=== PATIENT | female | born 2000 | race Caucasian/White ===

== ENCOUNTER 2021-11-04 19:42 | Emergency (ER) | payer OTHER, SELFPAY ==
[2021-11-04 19:44] VITALS: BP 165/91; PULSE 100; RESP 16; TEMP 36.4; O2SAT 100; BMI 36.5
--- NOTE | 2021-11-04 20:01 | EX.ED.VIS.PS ---
HPI HPI - Psych History of Present Illness Chief Complaint: Mental Health Narrative Narrative: [id number] male who identifies as a female presenting with depression episode. Apparently his significant other threw him out of the house is ago because he was not helping as much with her child is much as usual. The patient reports that he has a history of some left-sided pelvic cyst which needs nonemergent surgery. The patient was diagnosed with a [facility]. The patient states this is why it is difficult to be helpful. The patient complains of increased depression and negative thoughts but denies suicidal or homicidal ideation. The patient has no plan to for harm. Patient states that she feels like she is to be checked out. Patient does have a history of PTSD, anxiety, depression. The patient has follow-up scheduled for next week for specialist and PTSD therapy. PFSH PFS Medical History Anxiety Depression PTSD (post-traumatic stress disorder) Allergy/AdvReac Type Severity Reaction Status Date / Time quetiapine [From Seroquel] AdvReac Other Verified 11/04/21 19:47 sertraline [From Zoloft] AdvReac Other Verified 11/04/21 19:47 Social History Smoking Status: Current every day smoker tobacco type: cigarettes ROS ROS ED Constitutional Constitutional ED: Denies chills or fever(s) Eyes Eyes: Denies blurry vision or diplopia ENT ENT ED: Denies rhinorrhea or sore throat Cardiovascular Cardiovascular: Denies chest pain or palpitations Respiratory/Chest Respiratory/Chest: Denies cough or dyspnea Gastrointestinal Gastrointestinal: Denies abdominal pain, nausea or vomiting Genitourinary Genitourinary ED: Denies dysuria or hematuria Musculoskeletal Musculoskeletal: Denies arthralgias or myalgias Integumentary Denies abscess or rash Neurologic Neurologic: Denies headache(s) or weakness Psychiatric Psychiatric: Reports anxiety and depression; Denies suicidal ideation or suicidal thoughts Endocrine Endocrinology: Denies polydipsia or polyuria EXAM Physical Exam Const Vital Signs: 11/04/21 19:44 Temperature 97.6 F L Temperature Source Temporal Pulse Rate 100 Respiratory Rate 16 Blood Pressure 165/91 H Blood Pressure Mean 115 Pulse Ox 100 Oxygen Delivery Method Room Air Positive well nourished General Appearance ED: NAD; Negative for pallor HEENT normocephalic and atraumatic Eyes PERRL and EOMs intact bilaterally General Eye ED: Negative for pale conjunctiva or scleral icterus Resp normal respiratory effort and clear to auscultation bilaterally Cardio Rate: regular rate Rhythm: regular rhythm Neuro oriented x3 and CN's II-XII intact bilaterally Sensorium / Orientation: alert Psych Appearance: grossly normal Attitude: calm Activity / Motor Behavior: appropriate eye contact Speech: normal speech Mood & Affect: sad and tearful Thought Process: normal thought process Memory / Cognition: memory grossly intact Skin General Skin Exam: Negative for jaundice or pallor Lesions: no lesions Rashes: no rashes MDM MDM MDM Narrative Medical decision making narrative: 21-year-old female with history of depression, anxiety, PTSD presenting with depression. Apparently the patient is upset because her significant other kicked her out of the house and she is staying with a friend. Patient states she has negative thoughts but is not suicidal or homicidal. She is not manic. She is able to talk calmly and I do not believe she needs inpatient care. I spoke with social work who evaluated her and social work also believes that the patient is safe for safety planning. This was discussed with the patient and she will be discharged home in stable condition. Return precautions discussed. Impression: 1. Depression Discharge Plan Triage Chief Complaint: Mental Health ED Provider: Vic Bartlett Dx/Rx/DC Orders Instructions: ED Depression Primary Care Provider: Care Physician,No Primary Referrals: NOT,DEFINED [NON-STAFF] - Disposition Disposition: Home, Self Care Discharge Date/Time: 11/04/21 21:02
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
== END 2021-11-04 21:02 | disposition home or self-care (01) ==
PROVIDERS: Emergency Provider Student in an Organized Health Care Education/Training Program; Visit Provider Student in an Organized Health Care Education/Training Program
DX: F32.A Depression, unspecified (principal); F41.9 Anxiety disorder, unspecified; F17.210 Nicotine dependence, cigarettes, uncomplicated
CPT/HCPCS: 99282

== ENCOUNTER 2022-01-12 08:43 | Day surgery (SDC) | payer OTHER, SELFPAY ==
[2022-01-05 14:47] LABS: Hematocrit 46.6 % (37-47); Hemoglobin 14.5 g/dL (12.0-15.0); Mean Corp Hgb Conc 31.1 g/dL (32-36); Mean Corpuscular Hgb 27.6 pg (27.0-32.0); Mean Corpuscular Volume 88.8 fL (81-99); Mean Platelet Vol. 9.5 fl (6.2-12.0); Platelet Count 292 K/mm3 (150-450); RBC Distribution Width CV 15.2 % (11.6-14.6); RBC Distribution Width SD 50.3 fl (35.1-43.9); Red Blood Count 5.25 M/mm3 (4.2-5.4); White Blood Count 9.3 K/mm3 (4.4-11.0)
[2022-01-05 15:06] LABS: Magnesium 1.8 mg/dL (1.6-2.6)
[2022-01-12] VITALS (8 sets, daily range): BP systolic 116–135; BP diastolic 53–91; PULSE 71–88; RESP 16–18; TEMP 36.4–36.9; O2SAT 98–100; BMI 38.1
[2022-01-12] MEDS: Lactated Ringers 1,000 ML 40 ML IV (09:37)
[2022-01-12 09:38] LABS: Internal QC Validated? YES +Cl - CLEAR BKGD; Pregnancy, Urine Negative Negative
[2022-01-12] MEDS: Acetaminophen 500 MG Tablet 1000 MG PO (09:38)
[2022-01-12] MEDS: Gabapentin 600 MG Tablet PO (09:38)
[2022-01-12] MEDS: Magnesium Sulfate 2 GM IV IV (09:38)
--- NOTE | 2022-01-12 10:09 | HP.PCM.OB_ITS ---
History and Physical Date of Admission: 01/12/22 Surgical History and Physical Date: 01/12/2022 Name: GINI ALEJANDRO Age: 21 Date of : 2000 Gini Alejandro, a 21 year old female 0 0 0 0 0, presents for Robotic Assisted total laparoscopic hysterectomy bilateral salpingectomy, cystoscopy on 01/12 at 7:30. -- Patient is here for Robotic assisted total laparoscopic hysterectomy bilateral salpingectomy, cystoscopy. No concerns or problems today. Consents are signed and no questions. MEDICATIONS HISTORY: Current medications prescribed by our practice are: 1. Valtrex 1 gram tablet, 1 PO QD 2. Valtrex 1 gram tablet, One pill by mouth twice a day Patient is also takin. Lexapro 20 mg tablet, One pill by mouth once a day 2. testosterone cypionate 200 mg/mL intramuscular oil, 0.4 ml one injection weekly 3. trazodone 50 mg tablet, One pill by mouth once a day at hs 4. prazosin 2 mg capsule, One pill by mouth once a day at hs ALLERGIES: No Known Allergies, Seroquel, Suicidal thoughts, Zoloft and Suicidal thoughts Illnesses - Transgender Dysphoria, PTSD, Bipolar I, Depression/Anxiety, ADHD Accidents - None Hospitalizations - None Review of Systems: GENERAL - Denies fever, or chills SKIN - Denies skin changes EYES - Denies visual changes EARS - Denies difficulty hearing NOSE - Denies nasal congestion or bleeding MOUTH - Denies sore throat or difficulty swallowing NECK - Denies pain or swelling RESPIRATORY - Denies shortness of breath or wheezing CARDIOVASCULAR - Denies palpitations or chest pain GASTROINTESTINAL - Denies nausea, vomiting, diarrhea, constipation GENITOURINARY - Denies dysuria, frequency of urination, incontinence of urine MUSCULOSKELETAL - Denies joint or muscle pain NEUROLOGICAL - Denies localized numbness or weakness PSYCHIATRIC - Denies depression or anxiety ENDOCRINE - Denies heat or cold intolerance, weight loss or gain HEMATO-IMMUNOLOGIC - Denies excessive bleeding with cuts SOCIAL HISTORY: Alcohol Use - drinks occasionally Smoking - used to smoke but quit Diet - no special diet Lifestyle - moderate stress lifestyle, single and engaged Exercise - active work Seat Belt Use - never Employer - [employer] 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 Illicit Drug Use - None Sexual Activity - ACTIVE ONE PARTNER Control - NONE FAMILY HISTORY: MENSTRUAL HISTORY: LMP Known?- DefiniteAmount/Duration - excessive duration, Regularity - Irregular, LMP - 10/27/21, Age Onset Menarche - 13 PAST PREGNANCIES: Total Pregnancies - 0; Full Term Pregnancies - 0; Premature - 0; Abortions, Induced - 0; Abortions, Spontaneous - 0; Ectopics - 0; Multiple Births - 0; Living Children - 0 PHYSICAL EXAM BP- 124/80 Sitting, Left arm, large cuff Weight- 253.89327 lbs Height- 68 inch BMI:[id number] CONSTITUTIONAL - NAD, well nourished, and well developed SKIN - No rash, lesions, or ulcers HEENT - Normocephalic, PERRLA, EOMI NECK - No nodes, no nuchal rigidity and thyroid normal size and texture LYMPH NODES - Palpation of lymph nodes in neck and groins within normal limits ABDOMEN - Without hepatosplenomegaly, distention, masses, rebound, or guarding; normal bowel sounds; no hernias EXTREMITIES - No edema or calf tenderness NEUROLOGICAL - Cranial nerves II-XII grossly intact PSYCHIATRIC - A and O to time, place, person, mood and affect External Genital Vagina - non-tender without lesions Urethra/Urethral Meatus - non-tender Bladder - non-tender Vagina - vaginal segura are pink and moist without loss of rugae and no evidence of atrophy Cervix - without cervical motion tenderness and has normal size and features without evident lesions Uterus - 5-6 cm in size, mobile and nontender Adnexa - clear without masses or tenderness ASSESSMENT/PLAN: 1. Abnormal Uterine And Vaginal Bleeding, Unspecified Pt AUB and pelvic pain unresolved with IBU and OCP. No menses with testosterone replacement. Pelvic pain debilitating Exam benign. 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 Encounter For Other Preprocedural Examination Patient scheduled for robotic assisted total laparoscopic hysterectomy bilateral salpingectomy, cystoscopy. For pelvic pain Educated patient on risk benefits alternatives. Patient states understanding and wished to proceed. All questions were answered and consent was signed Discussed postoperative recovery. Lifting restrictions, back to work
[2022-01-12] MEDS: Cefazolin 2 GM in 0.9% Normal Saline 100 ML IV (10:52)
[2022-01-12 10:55] LABS: Bedside Glucose 107 mg/dL (74-106)
--- NOTE | 2022-01-12 11:00 | HYST_PTH ---
PATIENT: KENDALL ALEJANDRO LOC: [facility] U#:[id number] AGE/SX: 21/ ROOM: RE01/12/[address]: Dr. Alexsander Tirado MD : 2000 BED: DIS: 01/12/2022 SPEC #: [id number] RECD: 01/12/22 17:55 STATUS: LEONEL REYNOLDSElliot #: [id number] EMILY: 01/12/22 11:[address]: Alexsander Tirado DEPT: SURGICAL PATHOLOGY RECD BY: Sara Kinney Tissues: Uterus, NOS Procedures: Surgery Specimen Level V HEADER OPERATION: ERAS, lap robotic hysterectomy, bilateral salpingectomy, cysto PRE-OP DIAGNOSIS: Abnormal uterine and vaginal bleeding, pelvic pain TISSUE SUBMITTED: Cervix, uterus and bilateral fallopian tubes MICROSCOPIC DIAGNOSIS Uterus, hysterectomy: Cervix ? squamous metaplasia and mild chronic inflammation. Endometrium ? transition endometrium with focal cystic change. Myometrium - No pathologic change. Right and left fallopian tubes - No pathologic change. AM:reinaldo 01/16/2022 MICROSCOPIC DESCRIPTION Slides are reviewed. GROSS DESCRIPTION Received in fixative is one container labeled with the patient's name and designated cervix, uterus and bilateral fallopian tubes. The specimen consists of a hysterectomy specimen consisting of uterus with cervix and detached bilateral fallopian tubes. The uterus with cervix weighs 54 gm and measures 7.5 x 6 x 3 cm. The serosal surface is arreguin, glistening and focal area of subserosal hemorrhage is noted. The ectocervical mucosa is unremarkable. The external os is slit-like in contour. The endocervical canal measures 2.5 cm in length and the endocervical mucosa is arreguin, glistening and unremarkable. The triangular endometrial cavity measures 3.5 cm in length and up to 2 cm in width. The endometrium is arreguin, glistening without any mass lesion and measures 0.1 cm in thickness. Sections of the uterine wall do not reveal any mass lesion and measures up to 2 cm in thickness. Bilateral fallopian tubes are not identified as right or left and measures 6 cm in length and 0.5 cm in diameter and 6.5 cm in length and 0.5 cm in diameter. The fimbrial end is identified. Sections reveal unremarkable cut surfaces. Surgical Garment Fitter sections are submitted in eight cassettes as follows: 1 - anterior cervix, 2 - posterior cervix, 3 & 4 - anterior uterine wall, 5 & 6 - posterior uterine wall, 7 ? one fallopian tube, 8 ? second fallopian tube. / SJ:reinaldo 01/13/2022 TC:3 CPT: 05578
--- NOTE | 2022-01-12 12:57 | DCINST_ITS ---
Discharge Instructions Diet Discharge Diet: No restrictions Activity Discharge Activity: Return to Normal Activity, May Drive, May Shower and - (No tub baths for 2 weeks) May resume sexual activity in: 4-6 weeks Lifting Restrictions: No lifting over 25 pounds for 2 to 3 weeks Dressing / Incision Call your doctor if your incision/area has: Continuous Slow Oozing and Foul Smelling Discharge Call your doctor if you observe: Fever of 101 or Higher, Shortness of breath and Chest pain Follow Up Care Please Follow Up With: Alexsander Tirado MD When: 2 weeks postoperatively Test Results: Test results from this visit will be discussed in further detail at your follow- up appointment, if applicable. Discharge Plan Admission Primary Reason for Your Visit: Hysterectomy Attending Provider: Alexsander Tirado Primary Care Provider: MARLY JAIN Discharge Orders/Prescriptions Prescriptions: New oxycodone 5 mg Tablet 5 mg PO Q6H PRN PRN (Reason: Pain Score 7-10/10) 5 Days Qty: 20 0RF Continued acetaminophen [Tylenol] 325 mg Tablet 1,000 mg PO Q6H trazodone 50 mg Tablet 50 mg PO QHS ibuprofen 800 mg Tablet 800 mg PO Q8H valacyclovir [Valtrex] 1 gram Tablet 1,000 mg PO QHS ondansetron HCl 4 mg Tablet 4 mg PO Q6H PRN (Reason: Nausea) albuterol sulfate [Ventolin HFA] 90 mcg/actuation Hfa Aerosol Inhaler 1 inh INHALATION Q6H PRN (Reason: SOB) prazosin 2 mg Capsule 2 mg PO QPM escitalopram oxalate [Lexapro] 20 mg Tablet 20 mg PO QHS testosterone cypionate 200 mg/mL Kit 0.5 mg IM QWEEK Referrals / Follow Up: MARLY JAIN [Other] Disposition Disposition (needs filled in before D/C Order can be placed): Home, Self Care
--- NOTE | 2022-01-12 12:58 | PCM.OPRPT ---
Report of Operation Date of Procedure: 01/12/22 Pre-Operative Diagnosis: Abnormal uterine bleeding, pelvic pain Post-Operative Diagnosis: Abnormal uterine bleeding, pelvic pain Surgery/Procedure Performed:: Robotic assisted total laparoscopic hysterectomy bilateral salpingectomy, cystoscopy Description of Surgical Findings:: Surgeon: Alexsander Tirado MD Anesthesia: General EBL: 10 cc Urine output: 200 cc IV fluids: 1500 cc Complications: None Specimen: Bilateral fallopian tubes, cervix, uterus Findings: Normal uterus, tubes, and ovaries. Post procedure cystoscopy was performed and no pathology was noted Consent: Patient with abnormal uterine bleeding and pelvic pain elects for robotic assisted total laparoscopic hysterectomy bilateral salpingectomy, cystoscopy. Patient understands the risk of the procedure include but are not limited to visceral or vascular injury, prolonged hospitalization, blood loss and need for transfusion, reoperation. Patient state understanding and wished to proceed. All questions were answered and consent was signed Procedure: Patient is brought back to the OR where general anesthesia was found to be adequate. 2 g of Ancef were given for infection prophylaxis. Patient was prepared and draped in a dorsal lithotomy position with yellowfin stirrups. A weighted speculum was placed in the posterior aspect of the vagina and cervical dilators were used to dilate the cervix. Uterine manipulator was placed. Varies needle was inserted at the umbilicus water safety test was passed abdomen was insufflated. Supraumbilical midline 8 mm robotic trocar was inserted under direct visualization. Laparoscope was inserted and above findings were noted. Bilateral lower quadrant 8 mm trochars were inserted under direct visualization. 12 mm left upper quadrant trocar was inserted under direct visualization. Robot was docked. Using a vessel sealer and monopolar scissors left fallopian tubes identified to the fimbria and the mesosalpinx was cut and cauterized, left lobe tube removed from abdominal cavity and sent to pathology. Left round ligament was cut and cauterized. Anterior posterior portions of broad ligament were dissected. Bladder flap developed. Left uterine vessels skeletonized cut and cauterized lateralized beyond the level the colpotomy cup. Right fallopian tube was identified up to the fimbria and the mesosalpinx was cut and cauterized, right fallopian tube was removed from the abdominal cavity and sent to pathology. Right round ligament was cut and cauterized. Anterior and posterior portions of the broad ligament were dissected. Bladder flap was developed beyond the level of colpotomy cup. Right uterine vessels skeletonized cut and cauterized lateralized beyond the level to colpotomy cup. Circumferential colpotomy was made. Uterus was removed from the abdominal cavity and sent to pathology. Good hemostasis was noted. Colpotomy was closed in a continuous running fashion with V-Loc suture. Good hemostasis was noted. Cystoscopy was performed and above findings were noted. 12 mm trocar site was closed with a Tom Ramsey and Vicryl suture. Abdomen was desufflated and trochars were removed under direct visualization. Good hemostasis was noted. Skin was closed in subcuticular fashion. Good hemostasis was noted. All counts were correct x2. Patient tolerated procedure well and was brought to recovery in stable condition.
[2022-01-12] MEDS: oxyCODONE 5 MG Tablet PO (15:14)
== END 2022-01-12 15:35 | disposition home or self-care (01) ==
LOC: SDC 08:47 → AC 08:53
PROVIDERS: Anesthesiology; Referring Provider Obstetrics & Gynecology; Visit Provider Obstetrics & Gynecology
PROC: 0UT90ZZ Resection of Uterus, Open Approach (ICD-10-PCS; CPT 58571; principal; 2022-01-12 10:40)
DX: N85.8 Other specified noninflammatory disorders of uterus (principal); J45.909 Unspecified asthma, uncomplicated; F41.9 Anxiety disorder, unspecified; F32.A Depression, unspecified; A60.00 Herpesviral infection of urogenital system, unspecified; F43.10 Post-traumatic stress disorder, unspecified; Z87.891 Personal history of nicotine dependence; Z79.899 Other long term (current) drug therapy; Z86.16 Personal history of COVID-19
CPT/HCPCS: 58571; S2900; 00840; 36415; 81025; 82962; 83735; 85027; 86850; 86900; 86901; 88307; J7120; J2405

== ENCOUNTER 2022-10-07 17:01 | Emergency (ER) | payer OTHER, SELFPAY ==
[2022-10-07 17:02] VITALS: BP 164/89; PULSE 100; RESP 16; TEMP 36.4; O2SAT 99; BMI 40.6
--- NOTE | 2022-10-07 17:15 | CT_ITS ---
INDICATION: Right lower quadrant pain. EXAMINATION: CT ABDOMEN AND PELVIS WITHOUT CONTRAST TECHNIQUE: Helically acquired images were obtained of the abdomen and pelvis without oral or IV contrast. A radiation dose optimization technique was used for this scan. IV Contrast dosage and agent: None. Oral contrast: None. COMPARISON: None. FINDINGS: LOWER CHEST: Lung bases are clear. No cardiomegaly or pericardial effusion. No coronary artery calcification. LIVER: Homogeneous. No focal mass. GALLBLADDER AND BILIARY TREE: No calcified gallstones. No gallbladder distension or wall edema. No intra- or extrahepatic biliary ductal dilation. PANCREAS: No focal cystic or solid mass. SPLEEN: Normal size without focal cystic or solid mass. ADRENAL GLANDS: No nodules. KIDNEYS AND URETERS: Normal renal size and position. No hydronephrosis. PERITONEUM: No ascites or free air. No other fluid collection. BOWEL: No evidence of acute appendicitis, normal appendix. No stomach or bowel distension. No focal inflammatory change. LYMPH NODES: No enlarged mesenteric or retroperitoneal lymph nodes. VESSELS: Aorta is non-dilated. URINARY BLADDER: Decompressed. No gas or stone. REPRODUCTIVE ORGANS: No pelvic masses. Hysterectomy. ABDOMINAL WALL: Fat-containing umbilical hernia. BONES: No lytic or blastic abnormality. Unremarkable for age. CT/Abdomen/Pelvis without Cont IMPRESSION: No appendicitis or acute intra-abdominal findings. Electronically Signed: Ezra Marr MD at 18:37 EDT ,
--- NOTE | 2022-10-07 17:27 | EDS_ITS ---
HPI History of Present Illness Chief Complaint: Complaint Informant: patient Narrative Narrative: Patient presents with pelvic pain over the past several days, worse in the right lower quadrant. Today patient noted blood when wiping and is concerned that it is vaginal bleeding. Patient is trans female to male. He had a partial hysterectomy last year. He states following his hysterectomy he did have vaginal bleeding for approximately 6 months. Patient has had history of ovarian cyst prior to his surgery, however had an ultrasound 3 weeks ago that showed no evidence of ovarian cyst. Patient denies history of kidney stone. [facility] Medical History Anxiety Asthma Back pain Bipolar 1 disorder COVID Depression Eating disorder Herpes genitalia History of ADHD History of nenita Hypoglycemia Leg cramps Loss of hearing Migraine headache Nightmare disorder Pelvic pain PTSD (post-traumatic stress disorder) Restless legs Shortness of breath on exertion Smoker Suicidal ideation Syncope Transgender Under care of mental health counselor Wears glasses Home Medications acetaminophen 325 mg tablet (Tylenol) 1,000 mg PO Q6H 11/18/21 [History Last Taken 01/11/22] albuterol sulfate 90 mcg/actuation aerosol inhaler (Ventolin HFA) 1 inh inhalation Q6H PRN SOB 11/18/21 [History Last Taken 01/11/22] escitalopram oxalate 20 mg tablet (Lexapro) 20 mg PO QHS 11/18/21 [History Last Taken 01/11/22] ibuprofen 800 mg tablet 800 mg PO Q8H 11/18/21 [History Last Taken 01/11/22] ondansetron HCl 4 mg tablet 4 mg PO Q6H PRN Nausea 11/18/21 [History Last Taken 01/11/22] prazosin 2 mg capsule 2 mg PO QPM 11/18/21 [History Last Taken 01/11/22] testosterone cypionate 200 mg/mL intramuscular kit 0.5 mg IM QWEEK 11/18/21 [History Last Taken 01/11/22] valacyclovir 1 gram tablet (Valtrex) 1,000 mg PO QHS 11/18/21 [History Last Taken 01/11/22] oxycodone 5 mg tablet 5 mg PO Q6H PRN PRN Pain Score 7-10/10 5 days #20 tabs 01/12/22 [Rx Last Taken Unknown] Allergy/AdvReac Type Severity Reaction Status Date / Time adhesive tape AdvReac RED SKIN Verified 10/07/22 17:04 quetiapine [From Seroquel] AdvReac Other Verified 10/07/22 17:04 sertraline [From Zoloft] AdvReac Other Verified 10/07/22 17:04 Surgical History No history of previous surgery Social History Smoking Status: Light Smoker (<10/day) ROS ROS ED Constitutional Constitutional ED: Reports fever(s) and other Details: Temp 99 this morning. ; Denies chills Eyes Eyes: Denies change in vision ENT ENT ED: Denies rhinorrhea or sore throat Cardiovascular Cardiovascular: Denies chest pain or palpitations Respiratory/Chest Respiratory/Chest: Denies cough or dyspnea Gastrointestinal Gastrointestinal: Reports abdominal pain and nausea; Denies diarrhea or vomiting Genitourinary Genitourinary ED: Denies dysuria Musculoskeletal Musculoskeletal: Denies back pain or extremity pain Integumentary Denies Abrasions or rash Neurologic Neurologic: Denies headache(s) or weakness Allergic/Immunologic Allergic/Immunologic ED: Denies lip swelling or urticaria EXAM Physical Exam Const Vital Signs: 10/07/22 17:02 Temperature 97.6 F L Temperature Source Temporal Pulse Rate 100 Respiratory Rate 16 Blood Pressure 164/89 H Blood Pressure Mean 114 Pulse Ox 99 Oxygen Delivery Method Room Air Positive well nourished and well developed General Appearance ED: well developed HEENT Reports normocephalic and head/scalp atraumatic Eyes PERRL and EOMs intact bilaterally Neck supple Chest Wall inspection of chest normal and palpation of chest normal Resp normal respiratory effort and clear to auscultation bilaterally Cardio regular rate and regular rhythm GI GI Narrative: Abdomen soft with mild lower abdominal tenderness. No guarding or rebound. Palpation: soft Back/Spine no CVA tenderness Extremity normal to inspection Neuro oriented x3 and no sensory deficits noted Sensorium / Orientation: alert Motor Exam: strength 5/5 throughout Psych mental status grossly normal Skin no rashes or lesions noted MDM MDM MDM Narrative Medical decision making narrative: Patient was given morphine, Zofran, Toradol, IV fluids. Labwork obtained to evaluate for leukocytosis, anemia, and electrolyte derangement. Urinalysis obtained to evaluate for infection/hematuria. CT scan of the flank obtained to evaluate for possible kidney stone or appendicitis. Lab Data Attestation: I reviewed the patient's lab results. Labs: Laboratory Results - last 24 hr 10/07/22 10/07/22 10/07/22 17:30 18:00 18:00 WBC 8.6 RBC 5.76 H Hgb 15.8 H Hct 49.0 H MCV 85.1 MCH 27.4 MCHC 32.2 RDW Std Deviation 43.6 RDW Coeff of Nan 14.2 Plt Count 193 MPV 9.9 Immature Gran % (Auto) 0.200 Neut % (Auto) 59.2 Lymph % (Auto) 27.7 [place] % (Auto) 7.6 Eos % (Auto) 4.2 Baso % (Auto) 1.1 H Absolute Neuts (auto) 5.1 Absolute Lymphs (auto) 2.37 Nucleated RBC % 0 Platelet Estimate ADEQUATE Plt Morphology Comment LARGE RBC Morphology NORM C+C Sodium 138 Potassium 3.6 Chloride 103 Carbon Dioxide 28.0 Anion Gap 7 BUN 10 Creatinine 0.99 Estim Creat Clear Calc 89.15 Est GFR (MDRD) Af Amer 89 Est GFR (MDRD) Non-Af 73 BUN/Creatinine Ratio 10.1 Glucose 100 Calcium 9.5 Urine Color Yellow Urine Clarity Clear Urine pH 6.5 Ur Specific [place] 1.015 Urine Protein Negative Urine Glucose (UA) Normal Urine Ketones Negative Urine Occult Blood Negative Urine Nitrite Negative Urine Bilirubin Negative Urine Urobilinogen Normal Ur Leukocyte Esterase 25 H Urine RBC 0 SEEN Urine WBC 0 SEEN Ur Squamous Epith Cells 0 SEEN Urine Bacteria 0 SEEN Urine Mucus 0 SEEN Radiography Diagnostic Testing: Clinical Impression(s) from Imaging Studies Abdomen/Pelvis CT 10/07/22 17:15 IMPRESSION: No appendicitis or acute intra-abdominal findings. Electronically Signed: Ezra Marr MD at 18:37 EDT , Treatment and Re-Evaluation :: CBC reveals normal white count with hemoglobin concentrated at 15.8. Chemistry studies unremarkable. Urinalysis normal. CT flank reveals no evidence of appendicitis or any other acute intra-abdominal pathology. External examination is performed. There is a superficial abrasion noted just anterior to the vaginal orifice. This appears that has been recently bleeding. I see no sign of infection or abscess. Patient is scheduled to see a pelvic specialist in [place] next month as the lower pelvic pain has been ongoing for quite some time. At this time I see no indication for antibiotics. Supportive care will be continued. Discharge Plan Triage Chief Complaint: Complaint ED Provider: Steffanie Quintanilla Dx/Rx/DC Orders Clinical Impression: Pelvic pain Instructions: ED Pelvic Pain, Unknown Cause Prescriptions: No Action acetaminophen [Tylenol] 325 mg Tablet 1,000 mg PO Q6H ibuprofen 800 mg Tablet 800 mg PO Q8H valacyclovir [Valtrex] 1 gram Tablet 1,000 mg PO QHS ondansetron HCl 4 mg Tablet 4 mg PO Q6H PRN (Reason: Nausea) albuterol sulfate [Ventolin HFA] 90 mcg/actuation Hfa Aerosol Inhaler 1 inh INHALATION Q6H PRN (Reason: SOB) prazosin 2 mg Capsule 2 mg PO QPM escitalopram oxalate [Lexapro] 20 mg Tablet 20 mg PO QHS testosterone cypionate 200 mg/mL Kit 0.5 mg IM QWEEK oxycodone 5 mg Tablet 5 mg PO Q6H PRN PRN (Reason: Pain Score 7-10/10) 5 Days Qty: 20 0RF Referrals: MARLY JAIN [Other] Activity Restrictions/Additional Instructions: Follow-up with your pelvic specialist as scheduled. Disposition Disposition: Home, Self Care
[2022-10-07] MEDS: Ondansetron 4 MG/2 ML Vial IV (17:54)
[2022-10-07] MEDS: Ketorolac 30 MG/ML Syringe IV (17:54)
[2022-10-07] MEDS: Morphine 4 MG/ML Syringe IV (17:55)
[2022-10-07] MEDS: 0.9% Normal Saline 1,000 ML 150 ML IV (17:56)
[2022-10-07 18:04] LABS: Bacteria 0 SEEN /hpf (None Seen); Mucous, Urine 0 SEEN /hpf (<or=2+); Red Blood Cells-Urine 0 SEEN /hpf (0-5); Squamous Epithelial Cells - UA 0 SEEN /hpf (5-10); White Blood Cells 0 SEEN /hpf (0-5)
[2022-10-07 18:06] LABS: Color, Urine Yellow (Yellow); Glucose, Dipstick Normal (Normal); Ketone-Dipstick Negative (Negative); Leukocyte Esterase-Dipstick 25 /ul (Negative); Nitrite-Dipstick Negative (Negative); Occult Blood-Urine Negative /ul (Negative); Protein-Dipstick Negative (Negative); Specific Gravity, Urine 1.015 (1.002-1.030); Urine Bilirubin Dipstick Negative (Negative); Urine Clarity Clear (Clear); Urine Urobilinogen Normal (Normal); Urine pH 6.5 (5.0 - 8.0)
[2022-10-07 18:16] LABS: Absolute Lymphocyte Count 2.37 X10^3/uL (0.83-4.51); Absolute Neutrophil Count 5.1 X10^3/uL (2.0-7.7); Basophil# 0.09 X10^3/uL; Basophil% 1.1 % (0-1); Eosinophil# 0.36 X10^3/uL; Eosinophils% 4.2 % (0-5); Hemoglobin 15.8 g/dL (12.0-15.0); Lymphocyte # 2.37 X10^3/ul (0.83-4.51); Lymphocyte % 27.7 % (19-41); Mean Corp Hgb Conc 32.2 g/dL (32-36); Mean Corpuscular Hgb 27.4 pg (27.0-32.0); Mean Corpuscular Volume 85.1 fL (81-99); Mean Platelet Vol. 9.9 fl (6.2-12.0); Monocyte# 0.65 X10^3/uL; Monocyte% 7.6 % (0-10); NRBC Flagged by Analyzer 0 % (0-5); Neutrophil # 5.08 X10^3/uL (2.7-7.7); Neutrophil % 59.2 % (47-70); POSITIVE COUNT YES; Platelet Count 193 K/mm3 (150-450); RBC Distribution Width CV 14.2 % (11.6-14.6); RBC Distribution Width SD 43.6 fl (35.1-43.9); Red Blood Count 5.76 M/mm3 (4.2-5.4); White Blood Count 8.6 K/mm3 (4.4-11.0)
[2022-10-07 18:25] LABS: Anion Gap 7 (5-15); BUN 10 mg/dL (7-18); BUN/Creat Ratio 10.1 RATIO (10-20); Calcium,Total 9.5 mg/dL (8.5-10.1); Chloride 103 mmol/L (98-107); Creatinine, Serum 0.99 mg/dL (0.55-1.02); EST Glomerular Filtration Rate 73 mL/min (>60); Est Glom Filt Rate - Afr Amer 89 mL/min (>60); Estimated Creatinine Clearance 89.15 ml/min; Glucose 100 mg/dL (74-106); Potassium 3.6 mmol/L (3.5-5.1); Sodium Level 138 mmol/L (136-145)
[2022-10-07 18:30] LABS: Differential Indicated SCAN CRITERIA MET
[2022-10-07 18:32] LABS: Platelet Estimate ADEQUATE (ADEQ); Platelet Morphology LARGE; Red Cell Morphology NORM C+C NORMAL (NORM C&C)
[2022-10-07 19:15] VITALS: PULSE 67; RESP 18; O2SAT 99
== END 2022-10-07 19:27 | disposition home or self-care (01) ==
PROVIDERS: Emergency Provider Emergency Medicine; Visit Provider Emergency Medicine
DX: R10.2 Pelvic and perineal pain (principal); N93.9 Abnormal uterine and vaginal bleeding, unspecified; F17.200 Nicotine dependence, unspecified, uncomplicated; J45.909 Unspecified asthma, uncomplicated
CPT/HCPCS: 74176; 80048; 81001; 85025; 96361; 96374; 96375; 99283; J7030; A4216; J2405

== ENCOUNTER 2023-02-22 16:10 | Emergency (ER) | payer OTHER, SELFPAY ==
[2023-02-22 16:12] VITALS: BP 143/87; PULSE 121; RESP 18; TEMP 36.8; O2SAT 100; BMI 40.0
--- NOTE | 2023-02-22 16:43 | RAD_ITS ---
INDICATION: chest pain EXAMINATION/TECHNIQUE: X-RAY - XR Chest 1 View COMPARISON: FINDINGS: LINES/DEVICES: None. LUNGS: No consolidation, edema or effusion. No pneumothorax. MEDIASTINUM AND CARDIOVASCULAR STRUCTURES: Cardiac silhouette not enlarged. Central airways and mediastinal contour are unremarkable. BONES AND SOFT TISSUES: Unremarkable. RAD/Chest 1 View (Portable) IMPRESSION: No radiographic evidence of acute cardiopulmonary disease. Electronically Signed: Rebecca Yepez MD at 17:07 EDT Reading Location ID and State: [id number] / Tel , Service support ,
[2023-02-22 17:19] VITALS: BP 140/96; PULSE 89; RESP 20; O2SAT 99
[2023-02-22 17:20] VITALS: O2SAT 98
[2023-02-22 17:48] LABS: Absolute Lymphocyte Count 1.88 X10^3/uL (0.83-4.51); Absolute Neutrophil Count 5.1 X10^3/uL (2.0-7.7); Basophil# 0.08 X10^3/uL; Eosinophil# 0.22 X10^3/uL; Eosinophils% 2.8 % (0-5); Hematocrit 49.7 % (37-47); Hemoglobin 15.9 g/dL (12.0-15.0); Lymphocyte # 1.88 X10^3/ul (0.83-4.51); Lymphocyte % 23.7 % (19-41); Mean Corpuscular Hgb 27.7 pg (27.0-32.0); Mean Corpuscular Volume 86.4 fL (81-99); Mean Platelet Vol. 9.4 fl (6.2-12.0); Monocyte# 0.61 X10^3/uL; Monocyte% 7.7 % (0-10); NRBC Flagged by Analyzer 0 % (0-5); Neutrophil % 64.4 % (47-70); Platelet Count 291 K/mm3 (150-450); RBC Distribution Width CV 14.5 % (11.6-14.6); RBC Distribution Width SD 45.8 fl (35.1-43.9); Red Blood Count 5.75 M/mm3 (4.2-5.4); White Blood Count 7.9 K/mm3 (4.4-11.0)
--- NOTE | 2023-02-22 17:50 | ED.VIS.CHEST ---
HPI History of Present Illness Chief Complaint: Chest Pain Informant: patient Narrative Narrative: Patient states that about 4 days ago she had some chest pain. She noticed her heart rate is quick. She was at work and they checked her blood pressure and it was running about 140/90. They gave her a blood pressure cuff and send her to the hospital. She was seen at 1 hospital and it sounds like blood work and EKG was done but no other work-up. The next day she went to a different hospital. They did blood work including a D-dimer which was slightly elevated. Patient states they did a CAT scan of her chest looking for blood clot and it was negative. I am not able to verify this but the patient is able to tell me this information clearly and I do not think I need to repeat this imaging because of this. The patient states that he was not taken seriously because he is a trans individual. He states that sometimes his blood pressure is elevated but other times it is down to normal at about 120/80. It usually does not go lower than that. It uncommonly goes higher than the upper 140s. He has contacted his private physician but they are in [place] and cannot see him until next year. They told him to go to the emergency department again for a third visit. He is not really having symptoms at this point. He states sometimes his heart rate is normal and sometimes it is up. No family history of heart disease. He has had borderline glucose levels but never been treated for diabetes. No high cholesterol. He has been told before that his blood pressure is borderline but has never been treated. No family history of DVT or PE. No recent travel surgery immobilization or leg symptoms. [facility] Medical History Anxiety Asthma Back pain Bipolar 1 disorder COVID Depression Eating disorder Herpes genitalia History of ADHD History of nenita Hypoglycemia Leg cramps Loss of hearing Migraine headache Nightmare disorder Pelvic pain PTSD (post-traumatic stress disorder) Restless legs Shortness of breath on exertion Smoker Suicidal ideation Syncope Transgender Under care of mental health counselor Wears glasses Home Medications acetaminophen 325 mg tablet (Tylenol) 1,000 mg PO Q6H 11/18/21 [History Last Taken 01/11/22] albuterol sulfate 90 mcg/actuation aerosol inhaler (Ventolin HFA) 1 inh inhalation Q6H PRN SOB 11/18/21 [History Last Taken 01/11/22] escitalopram oxalate 20 mg tablet (Lexapro) 20 mg PO QHS 11/18/21 [History Last Taken 01/11/22] ibuprofen 800 mg tablet 800 mg PO Q8H 11/18/21 [History Last Taken 01/11/22] ondansetron HCl 4 mg tablet 4 mg PO Q6H PRN Nausea 11/18/21 [History Last Taken 01/11/22] prazosin 2 mg capsule 2 mg PO QPM 11/18/21 [History Last Taken 01/11/22] testosterone cypionate 200 mg/mL intramuscular kit 0.5 mg IM QWEEK 11/18/21 [History Last Taken 01/11/22] valacyclovir 1 gram tablet (Valtrex) 1,000 mg PO QHS 11/18/21 [History Last Taken 01/11/22] oxycodone 5 mg tablet 5 mg PO Q6H PRN PRN Pain Score 7-10/10 5 days #20 tabs 01/12/22 [Rx Last Taken Unknown] bupropion HCl 300 mg 24 hr tablet, extended release 300 mg PO DAILY 02/22/23 [History Last Taken Unknown] lisinopril 10 mg tablet 10 mg PO DAILY #30 tabs 02/22/23 [Rx Last Taken Unknown] Allergy/AdvReac Type Severity Reaction Status Date / Time acetaminophen [From Percocet] Allergy Rash Verified 02/22/23 16:12 oxycodone [From Percocet] Allergy Rash Verified 02/22/23 16:12 adhesive tape AdvReac RED SKIN Verified 02/22/23 16:12 quetiapine [From Seroquel] AdvReac Other Verified 02/22/23 16:12 sertraline [From Zoloft] AdvReac Other Verified 02/22/23 16:12 Surgical History No history of previous surgery Social History Smoking Status: Light Smoker (<10/day) ROS ROS ED ROS Narrative A complete review of systems was performed and is negative except as documented in the history of present illness. Some specific details below. Constitutional: No recent fevers or chills. No malaise EYE: No discharge, visual complaints, or pain. ENT: No difficulty swallowing. No swelling. No pain. No reflux symptoms. CV: See history of present illness. Respiratory: Not really getting short of breath with this. GI: No abdominal pain. No nausea vomiting diarrhea. No blood in stool. : No frequency dysuria or hematuria. Musculoskeletal: No recent trauma. No pains. No swelling. No cramping. No history of DVT. Skin: No rash. Nondiaphoretic. Neuro: No weakness or numbness. Endocrine: No polyuria or polydipsia. EXAM Physical Exam Narrative Exam Narrative: CONSTITUTIONAL: Patient is nontoxic in appearance. The patient looks comfortable. Work of breathing looks normal. He looks very comfortable and relaxed in bed. HEENT: No notable trauma. Mucous membranes moist. No sinus tenderness. No indication of pain with swallowing. EYES: No conjunctival injection. No proptosis. No icterus. No pallor to the conjunctive a. NECK:No JVD. No stridor. CARDIOVASCULAR: Regular rate. Regular rhythm. No notable murmur. No JVD. Heart rate is about 85-90 when I listen. Peripheral pulses are normal. RESPIRATORY: No respiratory distress. Breathing is unlabored. No wheezes. No rhonchi. No rales. No pain with a deep breath. No chest wall tenderness. GASTROINTESTINAL: Not distended. Bowel sounds are normal. No tenderness. No guarding. No rebound. No palpable mass. No bruit is heard. GENITOURINARY: No tenderness over the bladder. No CVA tenderness. MUSCULOSKELETAL: Atraumatic. No peripheral edema. No cord. No tenderness along the deep venous system. No asymmetry. No distended veins. NEUROLOGICAL: Patient is alert and appropriate. No focal deficit noted. SKIN: No noted rashes. No diaphoresis. PSYCHIATRIC: Patient is calm. Mood is appropriate. Const Vital Signs: 02/22/23 16:12 02/22/23 17:19 02/22/23 17:20 Temperature 98.2 F Temperature Source Temporal Pulse Rate 121 H 89 Respiratory Rate 18 20 H Blood Pressure 143/87 H 140/96 H Blood Pressure Mean 105 110 Pulse Ox 100 99 98 Oxygen Delivery Method Room Air Room Air Room Air MDM MDM MDM Narrative Medical decision making narrative: My independent interpretation the patient's single AP chest x-ray shows no acute process. Final reading is similar. CBC is normal other than mildly elevated hemoglobin at 15.9. White count platelets are normal. Patient's electrolytes are normal. Patient's troponin is negative at 4 despite days of symptoms. I do not think we need a delta or repeat troponin. This was ordered as part of protocol but I do not think this is required in this case. I had long discussion with patient. We discussed options. He has had multiple blood pressure readings that are elevated. He showed me a list of these on his phone including the actual photo of the readings from the machine. He has been told before he has blood pressure. I think he likely does. He also has a family history of this. We discussed that weight loss and exercise is the best treatment but we will initiate a low-dose of medicine at this point. He is having trouble getting into his physician I do not want him to go months and months without treatment. I will refer him to a local physician in he was appreciative of this. Reasons to return were covered and all questions were answered. Lab Data Attestation: I reviewed the patient's lab results. Labs: Laboratory Results - last 24 hr 02/22/23 17:35 WBC 7.9 RBC 5.75 H Hgb 15.9 H Hct 49.7 H MCV 86.4 MCH 27.7 MCHC 32.0 RDW Std Deviation 45.8 H RDW Coeff of Nan 14.5 Plt Count 291 MPV 9.4 Immature Gran % (Auto) 0.400 Neut % (Auto) 64.4 Lymph % (Auto) 23.7 [place] % (Auto) 7.7 Eos % (Auto) 2.8 Baso % (Auto) 1.0 Absolute Neuts (auto) 5.1 Absolute Lymphs (auto) 1.88 Nucleated RBC % 0 Sodium 137 Potassium 3.8 Chloride 105 Carbon Dioxide 26.0 Anion Gap 6 BUN 8 Creatinine 0.91 Estim Creat Clear Calc 96.99 Est GFR (MDRD) Af Amer 97 Est GFR (MDRD) Non-Af 81 BUN/Creatinine Ratio 8.8 L Glucose 88 Calcium 9.6 Troponin I High Sens 4 Radiography Diagnostic Testing: Clinical Impression(s) from Imaging Studies Chest X-Ray 02/22/23 16:43 IMPRESSION: No radiographic evidence of acute cardiopulmonary disease. Electronically Signed: Rebecca Yepez MD at 17:07 EDT , EKG Initial EKG: Comments: My independent interpretation the patient's EKG shows normal sinus rhythm with overall rate of 94. No ectopy. No acute ST elevation or depression. No preexcitation. MA interval, QRS duration and QTc are normal. Discharge Plan Triage Chief Complaint: Chest Pain ED Provider: Paul Gruber Dx/Rx/DC Orders Clinical Impression: Elevated blood pressure reading, History of tachycardia, Chest pain Instructions: ED Chest Pain, Uncertain Cause Prescriptions: New lisinopril 10 mg tablet 10 mg PO DAILY Qty: 30 2RF No Action acetaminophen [Tylenol] 325 mg Tablet 1,000 mg PO Q6H ibuprofen 800 mg Tablet 800 mg PO Q8H valacyclovir [Valtrex] 1 gram Tablet 1,000 mg PO QHS ondansetron HCl 4 mg Tablet 4 mg PO Q6H PRN (Reason: Nausea) albuterol sulfate [Ventolin HFA] 90 mcg/actuation Hfa Aerosol Inhaler 1 inh INHALATION Q6H PRN (Reason: SOB) prazosin 2 mg Capsule 2 mg PO QPM escitalopram oxalate [Lexapro] 20 mg Tablet 20 mg PO QHS testosterone cypionate 200 mg/mL Kit 0.5 mg IM QWEEK oxycodone 5 mg Tablet 5 mg PO Q6H PRN PRN (Reason: Pain Score 7-10/10) 5 Days Qty: 20 0RF bupropion HCl 300 mg tablet extended release 24 hr 300 mg PO DAILY Primary Care Provider: Care Physician,No Primary Referrals: [place] MD [Med Staff - Land Conservation Specialist] - As soon as possible Care Physician,No Primary [Primary Care Provider] - Disposition Disposition: Home, Self Care
[2023-02-22 18:07] LABS: Anion Gap 6 (5-15); BUN 8 mg/dL (7-18); BUN/Creat Ratio 8.8 RATIO (10-20); Calcium,Total 9.6 mg/dL (8.5-10.1); Chloride 105 mmol/L (98-107); Creatinine, Serum 0.91 mg/dL (0.55-1.02); EST Glomerular Filtration Rate 81 mL/min (>60); Est Glom Filt Rate - Afr Amer 97 mL/min (>60); Estimated Creatinine Clearance 96.99 ml/min; Glucose 88 mg/dL (74-106); Potassium 3.8 mmol/L (3.5-5.1); Sodium Level 137 mmol/L (136-145); Troponin-I HS (w/2H Reflex) 4 pg/mL (3.0-54.0)
[2023-02-22 18:30] VITALS: BP 141/73; PULSE 86; RESP 19; O2SAT 98
[2023-02-22 18:42] VITALS: BP 141/73; PULSE 75; RESP 16; O2SAT 98
[2023-02-22 19:42] LABS: Reflex Troponin-HS? (from REC) Y
== END 2023-02-22 18:54 | disposition home or self-care (01) ==
PROVIDERS: Emergency Provider Emergency Medicine; Visit Provider Emergency Medicine
DX: R03.0 Elevated blood-pressure reading, without diagnosis of hypertension (principal); F31.9 Bipolar disorder, unspecified; F41.9 Anxiety disorder, unspecified; J45.909 Unspecified asthma, uncomplicated; F17.200 Nicotine dependence, unspecified, uncomplicated; Z79.899 Other long term (current) drug therapy
CPT/HCPCS: 71045; 80048; 84484; 85025; 93005; 99284

== ENCOUNTER 2023-09-12 16:40 | Emergency (ER) | payer OTHER, SELFPAY ==
[2023-09-12] VITALS (7 sets, daily range): BP systolic 98–155; BP diastolic 54–88; PULSE 73–124; RESP 16–18; TEMP 36.7–36.9; O2SAT 94–98; BMI 42.8
[2023-09-12] MEDS: proCHLORPERazine 10 MG/2 ML Vial IV (18:20)
[2023-09-12] MEDS: DiphenhydrAMINE 50 MG/ML Syringe 25 MG IV (18:20)
[2023-09-12] MEDS: 0.9% Normal Saline (1000mL) 1,000 ML 1000 ML IV (18:20)
--- NOTE | 2023-09-12 18:25 | CT_ITS ---
STUDY: CT BRAIN WITHOUT CONTRAST REASON FOR EXAM: Female, 23 years old. Headache, new onset RADIATION DOSAGE (If Supplied By Facility): CTDIvol = ( 44.99 ) mGy, DLP = ( 863.60 ) mGycm TECHNIQUE: Transaxial CT imaging of the brain was performed without administration of intravenous contrast material. Individualized dose optimization techniques were used for this CT. COMPARISON: No relevant priors. FINDINGS: Normal soft tissue structures. Normal calvarium. Normal size ventricles and extra-axial spaces for the patient''s age. Normal white matter tracts of the cerebral hemispheres. There is empty sella. Normal basal ganglia and thalami. Normal brainstem. Normal cerebellum. There is 2.4 x 2.2 cm fat signal intensity mass consistent with quadrigeminal cistern lipoma. There is no intracranial hemorrhage. There are no findings of an acute ischemic infarction. There is mucosal thickening of the maxillary sinuses. CT/Brain/Head without Contrast IMPRESSION: No acute intracranial abnormality. Empty sella. Quadrigeminal cistern lipoma. Electronically Signed: Efe Malagon MD at 19:00 EDT ,
[2023-09-12 18:34] LABS: Mucous, Urine 0 SEEN /hpf (<or=2+); Red Blood Cells-Urine 0 SEEN /hpf (0-5); Squamous Epithelial Cells - UA 0 SEEN /hpf (5-10)
[2023-09-12 18:35] LABS: Absolute Lymphocyte Count 2.32 X10^3/uL (0.83-4.51); Absolute Neutrophil Count 6.9 X10^3/uL (2.0-7.7); Basophil# 0.09 X10^3/uL; Basophil% 0.9 % (0-1); Eosinophil# 0.25 X10^3/uL; Eosinophils% 2.4 % (0-5); Hematocrit 46.2 % (37-47); Hemoglobin 14.7 g/dL (12.0-15.0); Lymphocyte # 2.32 X10^3/ul (0.83-4.51); Lymphocyte % 22.2 % (19-41); Mean Corp Hgb Conc 31.8 g/dL (32-36); Mean Corpuscular Hgb 26.6 pg (27.0-32.0); Mean Corpuscular Volume 83.5 fL (81-99); Mean Platelet Vol. 9.5 fl (6.2-12.0); Monocyte# 0.83 X10^3/uL; Monocyte% 7.9 % (0-10); NRBC Flagged by Analyzer 0 % (0-5); Neutrophil # 6.92 X10^3/uL (2.7-7.7); Neutrophil % 66.2 % (47-70); Platelet Count 316 K/mm3 (150-450); RBC Distribution Width CV 14.6 % (11.6-14.6); RBC Distribution Width SD 44.4 fl (35.1-43.9); Red Blood Count 5.53 M/mm3 (4.2-5.4); White Blood Count 10.5 K/mm3 (4.4-11.0)
[2023-09-12 18:37] LABS: Color, Urine Yellow (Yellow); Glucose, Dipstick Normal (Normal); Ketone-Dipstick 5 mg/dl (Negative); Leukocyte Esterase-Dipstick 100 /ul (Negative); Nitrite-Dipstick Negative (Negative); Occult Blood-Urine Negative /ul (Negative); Protein-Dipstick 15 mg/dl (Negative); Urine Bilirubin Dipstick Negative (Negative); Urine Clarity Clear (Clear); Urine Urobilinogen Normal (Normal)
[2023-09-12 18:49] LABS: White Blood Cells 5-10 SEEN /hpf (0-5)
[2023-09-12 18:50] LABS: Bacteria 1+ /hpf (None Seen); Internal QC Validated? YES +Cl - CLEAR BKGD; Pregnancy, Urine Negative Negative; Record Kit Lot#,Urine Preg 718086
[2023-09-12 18:53] LABS: ALB/GLOB Ratio 1.1 RATIO (0.9-2.4); AST(SGOT) 23 U/L (15-37); Alanine Aminotransfer ALT/SGPT 44 U/L (13-56); Albumin, Serum 3.8 g/dL (3.2-5.0); Alkaline Phosphatase 76 U/L (45-117); Anion Gap 10 (5-15); BUN 7 mg/dL (7-18); BUN/Creat Ratio 8.1 RATIO (10-20); Calcium,Total 8.8 mg/dL (8.5-10.1); Chloride 106 mmol/L (98-107); Creatinine, Serum 0.86 mg/dL (0.55-1.02); EST Glomerular Filtration Rate 86 mL/min (>60); Est Glom Filt Rate - Afr Amer 104 mL/min (>60); Estimated Creatinine Clearance 142.53 ml/min; Globulin 3.6 g/dL (2.2-4.2); Glucose 94 mg/dL (74-106); Lipase 23 U/L (13-75); Potassium 3.6 mmol/L (3.5-5.1); Protein, Total 7.4 g/dL (6.4-8.2); Sodium Level 140 mmol/L (136-145)
[2023-09-12] MEDS: Ketorolac 15 MG/ML Vial IV (19:17)
--- NOTE | 2023-09-12 21:05 | EDS_ITS ---
HPI History of Present Illness Chief Complaint: Headache Informant: patient Narrative Narrative: Patient is a 23-year-old transgender female to male presenting with worsening headache and vomiting. Patient states he had COVID 3 weeks ago and since then has been having ongoing issues with vomiting. Notes that he is active and having about 6 years of intermittent episodes of vomiting and is also been intermittently having small amounts of blood in stool for the past 6 months which is being worked up by PCP and referred to GI. Has not any blood thinners. Notes that over the past 3 days has had continued episodes of vomiting and is also been having worsening headache now. Have a history of intermittent headaches but no significant history of migraines. Is complaining of headache that really starts in the forehead and moved to the right side of the head but is all over. Is worse with bending over. Denies any vision changes currently but does get some blurry vision intermittently. Has been having lightheadedness. Over the past 2 weeks has been seen at [facility] in [facility] for ongoing vomiting issues but not the headache. Denies any head trauma. Not on any blood thinners. Has been having ongoing last stools the last had a bowel movement at noon today which is more water. Is on chronic doxycycline for skin with no other medication changes. Denies any associate abdominal pain. Denies any rash or fever. Denies any neck pain. Has Zofran and Phenergan at home which is not relieving the nausea and vomiting. No other complaints or concerns reported at this time. [facility] Medical History Abnormal movements Acne vulgaris Anxiety Asthma Back pain Bipolar 1 disorder Blood in stool COVID Depression Diarrhea Eating disorder Elevated liver enzymes Gender dysphoria Herpes genitalia History of ADHD History of nenita Hypoglycemia Leg cramps Loss of hearing Migraine headache Nightmare disorder Obesity, Class III, BMI 40-49.9 (morbid obesity) Pelvic pain Prediabetes PTSD (post-traumatic stress disorder) Restless legs Shortness of breath on exertion Smoker Suicidal ideation Syncope Transgender Under care of mental health counselor Wears glasses Weight gain due to medication Home Medications ondansetron HCl 4 mg tablet 4 mg PO Q6H PRN Nausea 11/18/21 [History Last Taken 01/11/22] testosterone cypionate 200 mg/mL intramuscular kit 0.5 mg IM QWEEK 11/18/21 [History Last Taken 01/11/22] oxycodone 5 mg tablet 5 mg PO Q6H PRN PRN Pain Score 7-10/10 5 days #20 tabs 01/12/22 [Rx Last Taken Unknown] lisinopril 10 mg tablet 10 mg PO DAILY #30 tabs 02/22/23 [Rx Last Taken Unknown] bupropion HCl 150 mg 24 hr tablet, extended release 150 mg PO QAM 09/07/23 [History Last Taken Unknown] clonidine HCl 0.2 mg tablet 0.2 mg PO QHS 09/07/23 [History Last Taken Unknown] doxycycline hyclate 100 mg tablet 100 mg PO DAILY 09/07/23 [History Last Taken Unknown] fluoxetine 20 mg capsule 20 mg PO DAILY 09/07/23 [History Last Taken Unknown] metformin 500 mg tablet 1,000 mg PO DAILY 09/07/23 [History Last Taken Unknown] mirtazapine 45 mg tablet 45 mg PO QHS 09/07/23 [History Last Taken Unknown] olanzapine 7.5 mg tablet 7.5 mg PO QHS 09/07/23 [History Last Taken Unknown] omeprazole 40 mg capsule,delayed release 40 mg PO DAILY 09/07/23 [History Last Taken Unknown] semaglutide 0.25 mg or 0.5 mg (2 mg/3 mL) subcutaneous pen injector (Ozempic) 0.5 mg subcut QWEEK 09/07/23 [History Last Taken Unknown] prochlorperazine maleate 10 mg tablet (Compazine) 10 mg PO Q8H PRN nausea and vomiting #20 tabs 09/12/23 [Rx Last Taken Unknown] Allergy/AdvReac Type Severity Reaction Status Date / Time atomoxetine [From Strattera] Allergy Mild Hives Verified 09/12/23 16:44 acetaminophen [From Percocet] Allergy Rash Verified 09/12/23 16:44 oxycodone [From Percocet] Allergy Rash Verified 09/12/23 16:44 adhesive tape AdvReac RED SKIN Verified 09/12/23 16:44 quetiapine [From Seroquel] AdvReac Other Verified 09/12/23 16:44 sertraline [From Zoloft] AdvReac Other Verified 09/12/23 16:44 Family History Mother , Suicide Abuse, drug or alcohol Depression Chronic mental illness Ovarian cancer Grandmother Cervical cancer Surgical History H/O mastectomy No history of previous surgery S/P total abdominal hysterectomy and bilateral salpingo-oophorectomy Social History number of children: 2 Smoking Status: Current some day smoker tobacco type: cigarettes alcohol intake: current alcohol intake frequency: a few times a week ROS ROS ED Constitutional Constitutional ED: Denies chills, fever(s) or sweats Eyes Eyes: Reports blurry vision ENT ENT ED: Denies rhinorrhea or sore throat Cardiovascular Cardiovascular: Denies chest pain Respiratory/Chest Respiratory/Chest: Denies cough Gastrointestinal Gastrointestinal: Reports diarrhea, nausea and vomiting; Denies abdominal pain Genitourinary Genitourinary ED: Denies dysuria, hematuria or urinary frequency Musculoskeletal Musculoskeletal: Denies arthralgias, myalgias or neck pain Integumentary Denies rash Neurologic Neurologic: Reports headache(s); Denies paresthesias or weakness Psychiatric Psychiatric: Denies anxiety Hematologic/Lymphatic Hematologic/Lymphatic: Denies easy bleeding EXAM Physical Exam Const Vital Signs: 09/12/23 16:41 09/12/23 18:23 09/12/23 19:30 Temperature 98.4 F Temperature Source Temporal Pulse Rate 124 H Respiratory Rate 16 Blood Pressure 155/88 H 126/76 H 98/71 Blood Pressure Mean 110 92 81 Pulse Ox 97 98 94 Oxygen Delivery Method Room Air Positive well nourished and well developed General Appearance ED: well developed and NAD HEENT Reports dry mucous membranes Negative for trauma or tenderness Mouth ED: Yes dry mucous membranes Mouth: dry mucous membranes Eyes PERRL and EOMs intact bilaterally Neck no lymphadenopathy and supple Neck Narrative: normal ROM of the neck Chest Wall inspection of chest normal and palpation of chest normal Resp normal respiratory effort and clear to auscultation bilaterally Cardio regular rate, regular rhythm and no murmurs GI normal to inspection, nondistended, normoactive bowel sounds and non-tender Palpation: Negative for guarding Extremity normal to inspection Neuro oriented x3, CN's II-XII intact bilaterally and no sensory deficits noted Sensorium / Orientation: alert Motor Exam: strength 5/5 throughout; Negative for general weakness Psych mental status grossly normal Skin no rashes or lesions noted and no wounds MDM MDM MDM Narrative Medical decision making narrative: Patient is evaluated for 3 days of migraine which is new. Denies history of migraines. In addition has been having ongoing GI symptoms that seem to be worse and triggered by COVID infection 3 weeks ago. Patient is not aware of any history of any neuroimaging and a CT of the brain is obtained to rule out intracranial process include intracranial hemorrhage or mass effect. Is given IV fluids, Compazine and Benadryl in the emergency room. 1 CT does not show any acute intracranial process is also given IV Toradol. 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 Is informed of the CT findings. Lab work largely unremarkable with no signs of acute dehydration. Urinalysis is concerning for UTI with 5-10 white blood cells 1+ bacteria. Will send off for culture and start on 3-day course of Macrobid. Will prescribe Compazine as this seems to be better for the patient's nausea and vomiting. On repeat evaluation patient is feeling much better and states his headache has improved/resolved and still has his nausea and vomiting. Will follow-up outpatient with GI. Given return precautions. Discharged home in stable condition. Differential diagnosis?migraine headache, viral syndrome, dehydration, space- occupying lesion, hydrocephalus, intracranial hemorrhage Lab Data Attestation: I reviewed the patient's lab results. Labs: Laboratory Results - last 24 hr 09/12/23 09/12/23 18:15 18:25 WBC 10.5 RBC 5.53 H Hgb 14.7 Hct 46.2 MCV 83.5 MCH 26.6 L MCHC 31.8 L RDW Std Deviation 44.4 H RDW Coeff of Nan 14.6 Plt Count 316 MPV 9.5 Immature Gran % (Auto) 0.400 Neut % (Auto) 66.2 Lymph % (Auto) 22.2 [place] % (Auto) 7.9 Eos % (Auto) 2.4 Baso % (Auto) 0.9 Absolute Neuts (auto) 6.9 Absolute Lymphs (auto) 2.32 Nucleated RBC % 0 Sodium 140 Potassium 3.6 Chloride 106 Carbon Dioxide 24.0 Anion Gap 10 BUN 7 Creatinine 0.86 Estim Creat Clear Calc 142.53 Est GFR (MDRD) Af Amer 104 Est GFR (MDRD) Non-Af 86 BUN/Creatinine Ratio 8.1 L Glucose 94 Calcium 8.8 Total Bilirubin 0.40 AST 23 ALT 44 Alkaline Phosphatase 76 Total Protein 7.4 Albumin 3.8 Globulin 3.6 Albumin/Globulin Ratio 1.1 Lipase 23 Urine Color Yellow Urine Clarity Clear Urine pH 7.0 Ur Specific [place] 1.010 Urine Protein 15 H Urine Glucose (UA) Normal Urine Ketones 5 H Urine Occult Blood Negative Urine Nitrite Negative Urine Bilirubin Negative Urine Urobilinogen Normal Ur Leukocyte Esterase 100 H Urine RBC 0 SEEN Urine WBC 5-10 SEEN Ur Squamous Epith Cells 0 SEEN Urine Bacteria 1+ Urine Mucus 0 SEEN Urine Test Negative Radiography Diagnostic Testing: Clinical Impression(s) from Imaging Studies Brain CT 09/12/23 18:25 IMPRESSION: No acute intracranial abnormality. Empty sella. Quadrigeminal cistern lipoma. Electronically Signed: Efe Malagon MD at 19:00 EDT , Discharge Plan Triage Chief Complaint: Headache ED Provider: Christy Wilson Dx/Rx/DC Orders Clinical Impression: Headache, Nausea & vomiting Instructions: ED Headache Unspecified, ED Vomiting (Adult) Prescriptions: New prochlorperazine maleate [Compazine] 10 mg tablet 10 mg PO Q8H PRN (Reason: nausea and vomiting) Qty: 20 0RF No Action Ozempic 0.25 mg or 0.5 mg (2 mg/3 mL) pen injector 0.5 mg subcut QWEEK omeprazole 40 mg capsule,delayed release(DR/EC) 40 mg PO DAILY doxycycline hyclate 100 mg tablet 100 mg PO DAILY metformin 500 mg tablet 1,000 mg PO DAILY bupropion HCl 150 mg tablet extended release 24 hr 150 mg PO QAM clonidine HCl 0.2 mg tablet 0.2 mg PO QHS fluoxetine 20 mg capsule 20 mg PO DAILY mirtazapine 45 mg tablet 45 mg PO QHS olanzapine 7.5 mg tablet 7.5 mg PO QHS ondansetron HCl 4 mg Tablet 4 mg PO Q6H PRN (Reason: Nausea) testosterone cypionate 200 mg/mL Kit 0.5 mg IM QWEEK oxycodone 5 mg Tablet 5 mg PO Q6H PRN PRN (Reason: Pain Score 7-10/10) 5 Days Qty: 20 0RF lisinopril 10 mg tablet 10 mg PO DAILY Qty: 30 2RF Primary Care Provider: Molly Elena NP Referrals: Molly Elena NP [Other] Jignesh Ray MD [Non-Staff -Ordering Privileges] - As soon as possible Activity Restrictions/Additional Instructions: Your CT did show some incidental findings. You been given referral for neurology for follow-up for this. However I do not think this is anything to do with your symptoms today. Make sure drinking plenty of fluids. You may alternate ibuprofen and Tylenol as needed for headache. Continue to follow-up outpatient with GI as well.
--- OUTSIDE RECORDS SUMMARY | 2023-09-12 22:51 | XMS RPT_ITS | CCD ---
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 Name Role Phone TONIE CRUZ MD Unavailable Unavailable TONIE CRUZ MD Unavailable Unavailable TONIE CRUZ MD Unavailable Unavailable Annamaria Perry Primary Care Provider Annamaria Perry Primary Care Provider Roma Healy Primary Care Provider GONZALEZ TORIBIO Attending Unavailable PHYSICIAN, NOT RECORDED Primary Care Physician U Annamaria Hobbs Primary Care Provider [phone] Unavailable Primary Care Provider Unavailabl e KAMAR, SANDRO E Primary Care Unavailable KAMAR, SANDRO E Attending Unavailable KAMAR, SANDRO E Admitting Unavailable KAMAR, SANDRO E Admitting Unavailable KAMAR, SANDRO E Primary Care Unavailable KAMAR, SANDRO E Attending Unavailable DELFINA GARCIA Attending Unavailable DELFINA GARCIA Admitting Unavailable GARCIADELFINA Primary Care Unavailable KAMAR, SANDRO E Primary Care Unavailable KAMAR, SANDRO E Attending Unavailable KAMAR, SANDRO E Admitting Unavailable Kassy ADAMES CNP, Megan Primary Care Provider [phone] ANDREW TURPIN Primary Care Unavailable AJTI PAULINO Consulting Unavailable AJIT PAULINO Attending Unavailable AJIT PAULINO Admitting Unavailable PHYSICIAN, NOT RECORDED Primary Care Unavaila ble FIDEL SANCHEZ DO Attending Unavailable MILES AJ, DR MAINE Larson Attending Unavailable PHYSICIAN, NOT RECORDED Primary Care Unavaila ble Allergies Allergy Classification Reported Allergen(s) Allergy Type Date of Onset Reaction(s) Facility (20 sources) Acetaminophen / oxyCODONE; Translations: [acetaminophen-ox ycodone] Drug Allergy 2 Nausea and Vomiting, GI Upset [facility] Work Phone: (16 sources) oxyCODONE Drug Allergy 2 Rash [facility] Work Phone: (20 sources) QUEtiapine; Translations: [quetiapine] Drug Allergy 8 Other: See Comments [facility] Work Phone: (19 sources) Sertraline; Translations: [SERTRALINE HCL] Drug Allergy 8 Other: See Comments [facility] Phone: (2 sources) Sertraline; Translations: [sertraline] Drug Allergy [facility] (1 source) Acetaminophen / oxyCODONE Drug Allergy [facility] (1 source) QUEtiapine Drug Allergy [facility] (1 source) Sertraline Drug Allergy [facility] (1 source) atomoxetine Drug Allergy 4 Rash [employer] Phone: Medications Current Medications Medication Drug Class(es) Dates Sig (Normalized) Sig (Original) acetaminophen 325 mg / HYDROcodone bitartrate 5 mg oral tablet (3 sources) Opioid Agonist Start: 10-16-2022 End: 01-11-2023 HYDROcodone-acetamin ophen (NORCO) 5-325 mg per tablet ARIPiprazole 15 mg oral tablet (18 sources) Atypical Antipsychotic Start: 02-14-2023 End: 04-20-2023 take 1 tablet by mouth once daily ARIPiprazole (ABILIFY) 15 mg tablet Indications: Bipolar 2 disorder (HCC-CMS) , Schizoaffective disorder, bipolar type (HCC-CMS) , PTSD (post-traumatic stress disorder) Take 1 Tablet by mouth once daily 30 Tablet 1 04/03/2023 04/20/2023 Discontinued (Patient preference) Completed/Discontinued Medications Medication Drug Class(es) Dates Sig (Normalized) Sig (Original) doxepin hydrochloride 25 mg oral capsule (8 sources) Tricyclic Antidepressant Start: 04-03-2023 End: 07-03-2023 take 2 capsules by mouth once daily at bedtime doxepin capsule 25 mg TAKE 2 CAPSULES BY MOUTH NIGHTLY AT BEDTIME 0 06/01/2023 Active Problems Active Problems Problem Classification Problem Date Documented Da te Episodic/Chronic Anxiety disorders (20 sources) Posttraumatic stress disorder; Translations: [Post-traumatic stress disorder, unspecified] Chronic Attention-deficit, conduct, and disruptive behavior disorders (20 sources) Attention deficit hyperactivity disorder, predominantly inattentive type; Translations: [Attention-deficit hyperactivity disorder, predominantly inattentive type] Onset: 12-06-2020 Chronic Miscellaneous mental health disorders (20 sources) Gender dysphoria; Translations: [Gender identity disorder, unspecified] Onset: 05-31-2020 01-18-2022 Chronic Mood disorders (20 sources) Bipolar II disorder; Translations: [Bipolar II disorder] Onset: 05-31-2020 Chronic Nausea and vomiting (2 sources) Nausea and vomiting; Translations: [Nausea with vomiting, unspecified] Onset: 09-04-2023 09-02-2023 Episodic Other aftercare (4 sources) Patient encounter status; Translations: [Other nursing home (current) drug therapy] Episodic Other gastrointestinal disorders (1 source) Diarrhea; Translations: [Diarrhea, unspecified] 08-08-2023 Episodic Other liver diseases (1 source) Enzyme level - finding; Translations: [Transaminitis] 07-31-2023 Episodic Other liver diseases (3 sources) Elevated liver enzymes level; Translations: [Abnormal levels of other serum enzymes] Onset: 08-08-2023 08-08-2023 Episodic Other nutritional; endocrine; and metabolic disorders (19 sources) Body mass index 40+ - severely obese; Translations: [Morbid (severe) obesity due to excess calories] Onset: 06-02-2022 06-05-2022 Chronic Other upper respiratory infections (1 source) Sore throat symptom; Translations: [Acute pharyngitis, unspecified] 06-11-2023 Episodic Schizophrenia and other psychotic disorders (5 sources) Schizoaffective disorder, bipolar type; Translations: [Schizoaffective disorder, bipolar type] 01-11-2023 Chronic Substance-related disorders (20 sources) Nicotine dependence; Translations: [Nicotine dependence, unspecified, uncomplicated] Onset: 05-18-2020 10-25-2021 Chronic Past or Other Problems Problem Classification Problem Date Documented Da te Episodic/Chronic Abdominal pain (13 sources) Pain in pelvis; Translations: [Pelvic and perineal pain] Onset: 06-14-2021 10-02-2022 Episodic Diabetes mellitus without complication (20 sources) Prediabetes; Translations: [Prediabetes] Onset: 07-25-2022 07-27-2022 Episodic Other nervous system disorders (18 sources) Abnormal movement; Translations: [Unspecified abnormal involuntary movements] Onset: 07-20-2022 Episodic Other nutritional; endocrine; and metabolic disorders (19 sources) Weight gain; Translations: [Abnormal weight gain] Onset: 06-08-2022 Episodic Other skin disorders (18 sources) Acne vulgaris; Translations: [Acne vulgaris] Onset: 06-05-2022 06-05-2022 Episodic Screening and history of mental health and substance abuse codes (17 sources) H/O: attempted suicide; Translations: [History of suicide attempt] Onset: 01-18-2022 01-18-2022 Episodic Results Test Name Value Interpretation Reference Range Facil ity Vital Signs Date Time Vital Sign Value Performing Clinician Facility 09-04-2023 19:23-0500 Diastolic Blood Pressure Non-Invasive 67 mm[Hg] FIDEL REICHEnforta DO [facility] 09-04-2023 19:23-0500 Heart rate 84 /min FIDEL [facility] DO [facility] 09-04-2023 19:23-0500 Respiratory rate 18 /min [facility] 09-04-2023 19:23-0500 Systolic Blood Pressure Non-Invasive 127 mm[Hg] FIDEL REICHEnforta DO [facility] 09-04-2023 17:30-0500 Diastolic Blood Pressure Non-Invasive 74 mm[Hg] FIDEL REICHEnforta DO [facility] 09-04-2023 17:30-0500 Heart rate 102 /min FIDEL REICHEnforta DO [facility] 09-04-2023 17:30-0500 Respiratory rate 16 /min FIDEL REICHFIELD DO [facility] 09-04-2023 17:30-0500 Systolic Blood Pressure Non-Invasive 132 mm[Hg] FIDEL REICHFIELD DO [facility] 09-04-2023 16:24-0500 Body temperature 98.24 [degF] FIDEL REICHFIELD DO [facility] 09-04-2023 16:24-0500 Body weight 125 kg FIDEL REICHFIELD DO [facility] 09-04-2023 16:24-0500 Diastolic Blood Pressure Non-Invasive 84 mm[Hg] FIDEL REICHFIELD DO [facility] 09-04-2023 16:24-0500 Heart rate 113 /min FIDEL REICHFIELD DO [facility] 09-04-2023 16:24-0500 Respiratory rate 16 /min FIDEL REICHFIELD DO [facility] 09-04-2023 16:24-0500 Systolic Blood Pressure Non-Invasive 129 mm[Hg] FIDEL REICHFIELD DO [facility] 09-02-2023 14:36-0500 Body temperature 98.49 [degF] Daniella Athy PA-C Work Phone: [facility] 09-02-2023 14:36-0500 Body weight 125.47 kg Daniella Athy PA-C Work Phone: [facility] 09-02-2023 14:36-0500 Diastolic blood pressure 88 mm[Hg] Daniella Athy PA-C Work Phone: [facility] 09-02-2023 14:36-0500 Heart rate 117 /min Daniella Athy PA-C Work Phone: [facility] 09-02-2023 14:36-0500 Respiratory rate 20 /min Daniella Athy PA-C Work Phone: [facility] 09-02-2023 14:36-0500 SaO2% (BldA) [Mass fraction] 97 % Daniella Athy PA-C Work Phone: [facility] 09-02-2023 14:36-0500 Systolic blood pressure 130 mm[Hg] Daniella Athy PA-C Work Phone: [facility] 08-08-2023 11:01-0500 Body height 172.7 cm Andrew Turpin APRN, CNP Work Phone: [facility] Work Phone: 08-08-2023 11:01-0500 Body temperature 97.7 [degF] Andrew Turpin APRN, CNP Work Phone: [facility] Work Phone: 08-08-2023 11:01-0500 Body weight 127.46 kg Andrew Turpin APRN, CNP Work Phone: [facility] Work Phone: 08-08-2023 11:01-0500 Diastolic blood pressure 96 mm[Hg] Andrew Turpin APRN, CNP Work Phone: [facility] Work Phone: 08-08-2023 11:01-0500 Respiratory rate 16 /min Andrew Turpin APRN, CNP Work Phone: [facility] Work Phone: 08-08-2023 11:01-0500 Systolic blood pressure 135 mm[Hg] Andrew Turpin APRN, CNP Work Phone: [facility] Work Phone: 07-27-2023 09:49-0500 Body height 172.7 cm Margarita Kelly MANAGER [place],SUPPORT REPRESENTATIVE Work Phone: [employer] Work Phone: 07-27-2023 09:49-0500 Body weight 129.28 kg Margarita Kelly MANAGER [place],SUPPORT REPRESENTATIVE Work Phone: [employer] Work Phone: 07-27-2023 09:49-0500 Diastolic blood pressure 92 mm[Hg] Margarita Kelly MANAGER [place],SUPPORT REPRESENTATIVE Work Phone: [employer] Work Phone: 07-27-2023 09:49-0500 Heart rate 82 /min Margarita Kelly APRN,SUPPORT REPRESENTATIVE Work Phone: [employer] Work Phone: 07-27-2023 09:49-0500 Respiratory rate 16 /min Margarita Kelly MANAGER [place],SUPPORT REPRESENTATIVE Work Phone: [employer] Work Phone: 07-27-2023 09:49-0500 SaO2% (BldA) [Mass fraction] 99 % Margarita Kelly MANAGER [place],SUPPORT REPRESENTATIVE Work Phone: [employer] [facility] Work Phone: 07-27-2023 09:49-0500 Systolic blood pressure 156 mm[Hg] Margarita Kelly MANAGER [place],SUPPORT REPRESENTATIVE Work Phone: [employer] [facility] Work Phone: 06-11-2023 16:13-0500 Body temperature 98.2 [degF] Krislyn Aberegg PA Work Phone: [facility] 06-11-2023 16:13-0500 Body weight 124.65 kg Krislyn Aberegg PA Work Phone: [facility] 06-11-2023 16:13-0500 Diastolic blood pressure 86 mm[Hg] Krislyn Aberegg PA Work Phone: [facility] 06-11-2023 16:13-0500 Heart rate 110 /min Krislyn Aberegg PA Work Phone: [facility] 06-11-2023 16:13-0500 Respiratory rate 18 /min Krislyn Aberegg PA Work Phone: [facility] 06-11-2023 16:13-0500 SaO2% (BldA) [Mass fraction] 99 % Krislyn Aberegg PA Work Phone: [facility] 06-11-2023 16:13-0500 Systolic blood pressure 137 mm[Hg] Krislyn Aberegg PA Work Phone: [facility] 02-14-2023 23:00-0400 Diastolic Blood Pressure Non-Invasive [address] MAINE AQUINO MD [facility] 02-14-2023 23:00-0400 Heart rate 86 /min DR MAINE AQUINO MD [facility] 02-14-2023 23:00-0400 Systolic Blood Pressure Non-Invasive [address] MAINE AQUINO MD [facility] 02-14-2023 22:06-0400 Diastolic Blood Pressure Non-Invasive [address] MAINE AQUINO MD [facility] 02-14-2023 22:06-0400 Heart rate 82 /min DR MAINE AQUINO MD [facility] 02-14-2023 22:06-0400 Respiratory rate 20 /min DR MAINE AQUINO MD [facility] 02-14-2023 22:06-0400 Systolic Blood Pressure Non-Invasive [address] MAINE AQUINO MD [facility] 02-14-2023 20:26-0400 Body height 172.[address] MAINE AQUINO MD [facility] 02-14-2023 20:26-0400 Body temperature 98.24 [degF] DR MAINE AQUINO MD [facility] 02-14-2023 20:26-0400 Body weight 113.[address] MAINE AQUINO MD [facility] 02-14-2023 20:26-0400 Diastolic Blood Pressure Non-Invasive [address] MAINE AQUINO MD [facility] 02-14-2023 20:26-0400 Heart rate 115 /min DR MAINE AQUINO MD [facility] 02-14-2023 20:26-0400 Systolic Blood Pressure Non-Invasive [address] MAINE AQUINO MD [facility] 09-28-2022 12:53-0400 Body height 168.3 cm Annamaria Healy PA Work Phone: [employer] Work Phone: 09-28-2022 12:53-0400 Body temperature 97.9 [degF] Annamaria Healy PA Work Phone: [employer] [facility] Work Phone: 09-28-2022 12:53-0400 Body weight 120.66 kg Annamaria Healy PA Work Phone: [email or web address] Work Phone: 09-28-2022 12:53-0400 Diastolic blood pressure 82 mm[Hg] Annamaria Healy PA Work Phone: [facility] Work Phone: 09-28-2022 12:53-0400 Heart rate 98 /min Annamaria Healy PA Work Phone: [employer] Work Phone: 09-28-2022 12:53-0400 Respiratory rate 16 /min Annamaria AGUDELO Work Phone: [employer] [facility] Work Phone: 09-28-2022 12:53-0400 SaO2% (BldA) [Mass fraction] 99 % Annamaria AGUDELO Work Phone: [employer] Work Phone: 09-28-2022 12:53-0400 Systolic blood pressure 118 mm[Hg] Annamaria AGUDELO Work Phone: [employer] Work Phone: Encounters Encounter Date Encounter Type Care Provider Facility Start: 09-04-2023 End: 09-04-2023 Emergency department patient visit NOT RECORDED PHYSICIAN Facility:B Start: 09-04-2023 End: 09-04-2023 Emergency department patient visit FIDEL SANCHEZ [facility] Start: 09-02-2023 End: 09-02-2023 Emergency department patient visit SANDRO GALVIN [facility] Start: 09-02-2023 End: 09-02-2023 ambulatory Facility:[facility] Start: 09-02-2023 End: 09-02-2023 Patient encounter procedure Daniella Padron PA-C Work Phone: [facility] Care Procedures Date Procedure Procedure Detail Performing Clinician Start: 09-06-2023 End: 09-06-2023 Psychotherapy w/patient w/e&m srvcs 30 min Schizoaffective disorder, bipolar type ([facility]-CMS) Ajit Paulino APRN Work Phone: Plan of Treatment Date Care Activity Detail Author Start: 2049 Zoster Vaccines (1 of 2) Zoster Vaccines (1 of 2) [facility] Start: 02-28-2028 Tetanus vaccination Imm-DTaP/Tdap/Td (3 - Td or Tdap) [facility] Start: 05-16-2025 Screening for malignant neoplasm of cervix [facility] Start: 08-08-2024 Diabetes mellitus [facility] Start: 08-08-2024 Lipid [facility] Start: 08-07-2024 Hypertension screening Hypertension Screening (#1) [facility] Start: 08-07-2024 Tobacco use cessation education Tobacco Cessation Counseling (#1) [facility] Start: 07-27-2024 Diabetes mellitus screening [facility] Start: 07-26-2024 Hypertension screening Hypertension Screening (#1) [facility] Start: 07-26-2024 Tobacco use cessation education Tobacco Cessation Counseling (#1) [facility] Start: 05-16-2024 Tobacco use cessation education [facility] Start: 04-03-2024 Tobacco Screening Tobacco Screening [facility] Start: 04-02-2024 Tobacco use cessation education [facility]ess[facility] Start: 02-13-2024 Tobacco use cessation education Tobacco Cessation [facility] Start: 01-11-2024 Tobacco use cessation education [facility] Cessation [facility]ing [facility] Start: 11-06-2023 Depression Monitoring Depression Monitoring [facility] Start: 10-24-2023 Tobacco use cessation education Tobacco Cessation [facility]ing [facility] Start: 09-29-2023 Diabetes mellitus screening Diabetes Screening [facility] Start: 09-29-2023 Lipid panel Lipid Screening [facility] Start: 09-28-2023 Hypertension screening [facility]pertension Screening (#[facility] Start: 09-28-2023 Tobacco use cessation education Tobacco Cessation Counseling (#1) [facility] Start: 09-21-2023 Tobacco use cessation education [facility] Cessation [facility]ing (#[facility] Start: 09-02-2023 End: 09-04-2023 CBC W Auto Differential panel - Blood CBC + DIFF Lab STAT Nausea and vomiting, unspecified vomiting type Expected: 09/02/2023, Expires: 09/04/2023 [facility] Work Phone: Immunizations Immunization Date Immunization Notes Care Provider Abdelarhman bryant 02-27-2018 tetanus and diphther ia toxoids, adsorbed, preservative free, for adult use (5 Lf of tetanus toxoid and 2 Lf of diphtheria toxoid) Silvia Moore APRN,SUPPORT REPRESENTATIVE Work Phone: [facility] Work Phone: Payers Date Payer Category Payer Private Health Insurance [id number] 2021 Private Health Insurance [id number] 2021 [id number] 2021-Present [phone] [address] [address] [place] [address] Indemnity [id number] 2021 Unknown [id number] 2021 Private Health Insurance [id number] 1999 Unknown [id number] 1999 Unknown [id number] 1999 Unknown [id number] 1999 Unknown [id number] 1999 Unknown [id number] 1999 Unknown [id number] 1999 Unknown [id number] 1999 Unknown [id number] Social History Date Type Detail Facility Start: 08-14-2022 End: 04-24-2023 Tobacco smoking status NHIS Smokes tobacco daily [facility] Work Phone: History of tobacco use Cigarette Smoker [facility] Work Phone: Start: 07-14-2021 End: 08-14-2022 Cigarettes smoked current (pack per day) - Reported 1 [facility] Start: 08-14-2022 End: 04-24-2023 Tobacco use and exposure Smokeless tobacco non-user [facility] Work Phone: Start: 08-14-2022 End: 09-06-2023 Alcohol intake Current drinker of alcohol (finding) [facility] Work Phone: Start: 05-18-2020 History SDOH Alcohol Frequency 2 [facility] Work Phone: Start: 05-18-2020 History SDOH Alcohol Std Drinks 1 [employer] Phone: Start: 08-14-2022 Tobacco Comment 08/14: none in 13d [employer] Phone: Start: 08-14-2022 Alcohol Comment 08/14: 1x/w, 1 serving [employer] Phone: Start: 2000 Sex Assigned At Female [facility] Start: 07-14-2021 End: 07-25-2022 Social Connections [facility] Start: 05-18-2020 Social Connections and Isolation 1 [facility] Start: 04-08-2020 Gender identity [id number] transsexual (finding) [facility] Start: 09-21-2022 End: 10-24-2022 Alcohol intake Ex-drinker (finding) [employer] Phone: Start: 09-21-2022 Tobacco Comment 09/21: none in 1 month [employer] Phone: Start: 03-23-2023 Alcohol Comment 09/21: denies recent [facility] Work Phone: Start: 09-18-2022 End: 09-28-2022 Exposure to SARS-CoV-2 (event) Not sure [facility] Tobacco smoking stat us [facility] Tobacco smoking consumption unknown [facility] Start: 1999 Sex Assigned At Not on file [facility] Start: 10-24-2022 Tobacco Comment 10/24: none in 2mos [facility] Work Phone: Start: 10-24-2022 Alcohol Comment 10/24: denies recent [facility] Work Phone: Start: 01-11-2023 Tobacco smoking status NHIS Ex-smoker [facility] Work Phone: History of tobacco use Current smoker [employer] Phone: Start: 02-14-2023 Tobacco smoking status Heavy tobacco smoker (finding) [facility] Sex Assigned At Male [facility] Start: 06-11-2023 Tobacco use and exposure Former smokeless tobacco user [facility] History of tobacco use Chews Tobacco [facility] Do you belong to any clubs or organizations such as yarsanism groups, unions, fraternal or athletic groups, or school groups? No [facility] Are you now , , , , never or living with a partner? Living with partner [facility] How often to you hav e a drink containing alcohol? Monthly or less [facility] How many standard dr inks containing alcohol do you have on a typical day? 1 or 2 [facility] How often do you hav e 6 or more drinks on 1 occasion? Never [facility] How hard is it for y ou to pay for the very basics like food, housing, medical care, and heating Hard [facility] Do you feel stress - tense, restless, nervous, or anxious, or unable to sleep at night because your mind is troubled all the time - these days [OSQ] Very much [facility] (I/We) worried wheji er (my/our) food would run out before (I/we) got money to buy more. Never true [facility] In the past 12 month s, was there a time when you were not able to pay the mortgage or rent on time? Yes [facility] Start: 10-28-2020 Education 11 [facility] Start: 09-27-2020 Alcohol Comment sometimes [facility] Start: 10-28-2020 Gender identity [id number] transsexual (finding) [facility] Start: 10-28-2020 Sexual orientation Heterosexual (finding) [facility] Medical Equipment Procedure Code Equipment Code Equipment Origin al Text Equipment Identifier Dates Start: 06-02-2022 End: 07-27-2023 Goals Date Patient Goal Desired Activity /State Personal health goal Functional Status Date Assessment Result Facility 09-04-2023 Functional Status Independent [facility] 09-04-2023 Functional Status Standard Safet y ID band on, Allergy Band on, Call device within reach, Bed in low position, Wheels locked, Upper/Half-Length side-rails up, Bedside Cart Locked, Safety level maintained [facility] 02-14-2023 Functional Status ID band on, Allergy Band on, Call device within reach, Bed in low position, Wheels locked, Upper/Half-Length side-rails up, Safety level maintained [facility] 02-14-2023 Functional Status [facility] Mental Status Date Assessment Result Facility 09-04-2023 Mental Status Orientation Oriented x 4 [facility] 09-04-2023 Mental Status [facility] 02-14-2023 Mental Status Orientation Oriented x 4 [facility] Clinical Notes 10-26-2021 to 09-06-2023 Ajit Paulino APRN - 09/06/2023 10:00 AM Daniella Morales PA-C - 09/02/2023 2:49 PM Kimberly Turpin APRN, CNP - 08/08/2023 1:10 PM Kimberly Turpin APRN, CNP - 08/08/2023 1:10 PM ESTPatient Instructions Note Date & Type Note Facility 09-06-2023 History of Presen t illness Narrative Tele-Health Visit Statement [facility] The patient's identity was verified and they have verbally stated that they are currently in the [facility]. The risks, benefits, and alternatives of a realtime synchronous audiovisual consultation were discussed with the patient and/or their guardian and they have given their verbal consent to this tele-health visit. 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: Not Applicable Chief Complaint Patient presents with Psychosis Follow Up Medication Management Objective Pt today reports that he has 2 weeks left of IOP. States that the psychiatrist told him after a 90 minute session that she thinks he needs controlled substances and that he should make an appt with me to discuss this. When I ask what controlled substances she was referring to, he said that she thinks he needs something for ADHD and then pt says that he has also taken non-prescribed benzos and they have been helpful. He says that the psychiatrist told him that since she sees him online, she cannot prescribed controlled meds, but he should talk to me to ask if I can. Did advise pt that insurance will likely not cover the cost of today's appt, since he is in IOP, and I had already told him this prior to IOP beginning. He verbalizes understanding. He says that IOP has been okay but it's not really helping. He has not yet made an appt with his new therapist. The only changes that they made to pt's meds is they took him off clonidine and Wellbutrin and increased his Prozac to 30 mg. He took Strattera for 3 days and my whole body broke out like I was sunburnt. (Added to allergies in Epic). He says that she took him off the Wellbutrin because she didn't think it was helping. He says he's not concerned about the ADHD right now, but he's only been able to sleep 10 hours in the last 2 weeks. Reports he wakes up every 30-45 minutes and then it takes him another 15 minutes to fall back asleep. He states that he felt himself going into a depressive episode 2-3 weeks ago, which was weird bc he usually has nenita first but he didn't this time. He says he still feels like he's becoming depressed but I've been at the edge for a couple weeks. He notes that this depression started at the time that his IOP psychiatrist told him to stop taking the Wellbutrin. Explained that I do not normally make any changes while a pt is in IOP, both insurance generally won't cover the cost of the appt and it is not appropriate for the pt to have more than one psych provider, since his psychiatrist recommended he talk to me during IOP I am comfortable making some changes. He has never had a sleep study - referring him. Also increasing Zyprexa to 10 mg PO qhs as it did help initially with sleep at smaller doses, although it's primarily being used for schizoaffective d/o. He continues to report poor appetite despite BMI of 42 and PCP starting Ozempic, so the increased Zyprexa may help with that as well. Finally, I am further increasing Prozac to 40 mg (IOP already increased it to 30, but I see no reason not to have gone to 40) for MDD and KULDEEP. No SI, but PDW persists. No nenita or psychois. Advised pt that we can discuss benzos at next appt for rescue use only. 07/03/23 f/u: Per Epic, pt last filled a 30-d/s of Zyprexa 5 mg 05/02/23. He insists that he is compliant, however, still taking 5 mg of Zyprexa nightly. He refuses to make f/u appointments, insisting that it only works when he calls to schedule an appt based around his work schedule, which generally results in the pt calling reporting an emergency of some sort. Today he reports that he recently starting seeing a new therapist who made me start EMDR - last week, he was told by his new therapist, his old therapist, and his EMDR therapist told him he has to start IOP, so he has enrolled at [facility], which will be M,T and R from 7-10 pm and therapy every Sunday. He reports that his anxiety has been increased significantly and he has also been extremely depressed for the last month or so. He reports compliance with all meds except he ran out of Doxepin 4-5 nights ago, and reports that everything felt the same, I'm still not sleeping at all. He denies psychotic symptoms since we spoke last. Also denies SI. 07/03/23 Plan: Increase Zyprexa to 7.5 mg PO qhs for schizoaffective d/o D/c Doxepin (pt ran out and has not noticed any difference when not taking it) Start fluoxetine 20 mg PO qam for anxiety/depression Continue all other meds as prescribed Pt to start IOP through [facility] tomorrow, which will last from 6 to 15 weeks; while in IOP, he will not be making appointments with me and will be seeing psych prescriber through IOP Once pt is nearing end of IOP, advised him to send me documentation of current meds and schedule appt with me after he completes to avoid tx interruption Further medication changes will depend on pt report of symptoms and tolerability RTC when pt completes IOP HPI Kendall Alejandro is a 23 year old Adult here today for follow-up med management visit. Symptoms include sadness ( worse since I've been stuck at home; go back next Sunday; before that was there, normal for me ), decreased interest ( not it; kind of been the same throughout ), hopelessness, panic ( handful, 4-5; 10m; out of nowhere talk to random somebody that I know ), difficulty concentrating ( yeah ), increased fatigue ( worse last couple weeks ) and sleep disturbance ( since surgery maybe an hour or two a night sleeping on my couch very uncomfortable, have to sleep in recliner ; 1-2h; napping trying to avoid it ; not restorative). Patient denies or there is no evidence of low self-esteem, guilt, nervousness/anxiousness ( not too bad ), inflated self-esteem, decreased need for sleep, euphoric mood, hallucinations, irritability, appetite change, suicidal ideas or homicidal ideas. Weight change: h/o disordered eating does weigh self.: 50h/w. Past treatments tried include: Psychotherapy: Kelly at [facility] see her next week . Compliance with prior treatments has been good. Last KULDEEP-7 Kuldeep-7 Total (!) 16 at 11/08/2020 8:00 AM Last PHQ-9 PHQ-9 Total Score (Auto Calculated) 0 at 08/08/2023 11:02 AM HIV Care No results found for: CD4 , COPIESML , HELPSUPP If client is HIV+, provider reviewed HIV care, Viral Load, and CD4: Not applicable AIMS 11/22/2020 9:00 AM 1. Muscles of facial expression none 2. Lips and perioral area none 3. Jaw none 4. Tongue none 5. Upper (arms, wrists, hands, fingers) none 6. Lower (legs, knees, ankles, toes) none 7. Neck shoulders, hips none 8. Severity of abnormal movements none 9. Incapacitation due to abnoral movements none, normal 10. Patient's awareness of abnormal movements no awareness 11. Current problems with teeth and/or dentures no 12. Does patient usually wear dentures? no Total (items 1-7) 0 Recent Labs: T4FREE (ng/dL) Date Value 05/31/2020 1.3 TSH Date Value 07/27/2023 2.380 uIU/mL 05/31/2020 4.3 uU/mL WBC (x10E3/uL) Date Value 08/08/2023 8.7 07/27/2023 7.4 RBC (x10E6/uL) Date Value 08/08/2023 5.79 (H) 07/27/2023 5.72 (H) HGBA1C (%) Date Value 07/27/2023 5.9 (H) 06/02/2022 5.7 (H) HGB (g/dL) Date Value 08/08/2023 15.7 07/27/2023 15.4 HCT (%) Date Value 08/08/2023 48.7 (H) 07/27/2023 47.0 (H) CHOL (mg/dL) Date Value 08/08/2023 168 09/28/2022 127 TRIGLYC (mg/dL) Date Value 08/08/2023 146 09/28/2022 77 HDL (mg/dL) Date Value 08/08/2023 44 09/28/2022 42 LDL (mg/dL) Date Value 08/08/2023 98 09/28/2022 70 VLDL (mg/dL) Date Value 08/08/2023 26 09/28/2022 15 GLUCOSE (mg/dL) Date Value 08/08/2023 116 (H) 07/27/2023 97 BUN (mg/dL) Date Value 08/08/2023 12 07/27/2023 9 CREATININE (mg/dL) Date Value 08/08/2023 0.92 07/27/2023 0.95 EGFR (mL/min/1.73) Date Value 08/08/2023 89 07/27/2023 86 05/31/2020 111 05/31/2020 128 AST (IU/L) Date Value 08/08/2023 31 07/27/2023 43 (H) ALT (IU/L) Date Value 08/08/2023 45 (H) 07/27/2023 66 (H) BILIRUBIN (mg/dL) Date Value 08/08/2023 0.3 07/27/2023 0.3 No results found for: URAMPHETQL , URCOCAINEQL , URTHCQL , UROPIATEQL , URETOHQL , URBUPRENQL , URBENZOQL , URMETHDQL Review of Systems Constitutional: Negative for appetite change. Cardiovascular: Positive for chest pain (per pt - sent message to PCP) and palpitations (per pt - sent message to PCP). Just with anxiety attacks ; H/o the same PCP aware per him Gastrointestinal: Negative. Neurological: Negative for seizures. PD: denies noticing by either self or others (prev states shoulders; kind of like a tic; off and on; not new had that for a few years no change ) Psychiatric/Behavioral: Positive for sleep disturbance ( since surgery maybe an hour or two a night sleeping on my couch very uncomfortable, have to sleep in recliner ; 1-2h; napping trying to avoid it ; not restorative). Negative for hallucinations, homicidal ideas and suicidal ideas. The patient is not nervous/anxious ( not too bad ). Mental Status Exam Appearance is appropriate for circumstance. General Health is generally good. Eye Contact is good. Motor Activity is unremarkable. Speech is monotone. Affect is blunted. slight Reported Mood is depressed. pretty good Thought Content has depressive cognitions and has suicidal ideations. Suicidal Ideation: Passive SI, no plan/intent Thought Process is goal-directed and is linear. Perception is unremarkable. Attention is alert. Demeanor is appropriate for situation. Insight is fair. Judgement is appropriate. Orientation is fully oriented. Memory is grossly intact and not formally tested. Narrative: Reviewed OARRS report 09/05/2023 which brings up no concerns or discrepancies. Total visit time today, including time spent reviewing chart and/or consulting prior to or after appointment was 30 minutes. Greater than 50% of this time was spent providing counseling and care coordination around chief complaint, including any additional diagnoses listed above. Shared-decision making was made with consideration for patient specific factors. All patient's questions were answered and patient verbally confirms and understands plan of care. Diagnosis: 1. Schizoaffective disorder, bipolar type ([facility]) - buPROPion XL (WELLBUTRIN XL) 150 mg 24 hr tablet; Take 1 Tablet by mouth daily. Dispense: 30 Tablet; Refill: 0 - FLUoxetine (PROZAC) 40 mg capsule; Take 1 Capsule by mouth once daily Dispense: 30 Capsule; Refill: 0 - mirtazapine (REMERON) 45 mg tablet; Take 1 Tablet by mouth nightly at bedtime Dispense: 30 Tablet; Refill: 0 - OLANZapine (ZYPREXA) 10 mg tablet; Take 1 Tablet by mouth nightly at bedtime Dispense: 30 Tablet; Refill: 0 2. Attention deficit hyperactivity disorder (ADHD), predominantly inattentive type - buPROPion XL (WELLBUTRIN XL) 150 mg 24 hr tablet; Take 1 Tablet by mouth daily. Dispense: 30 Tablet; Refill: 0 3. PTSD (post-traumatic stress disorder) - buPROPion XL (WELLBUTRIN XL) 150 mg 24 hr tablet; Take 1 Tablet by mouth daily. Dispense: 30 Tablet; Refill: 0 - FLUoxetine (PROZAC) 40 mg capsule; Take 1 Capsule by mouth once daily Dispense: 30 Capsule; Refill: 0 - mirtazapine (REMERON) 45 mg tablet; Take 1 Tablet by mouth nightly at bedtime Dispense: 30 Tablet; Refill: 0 - OLANZapine (ZYPREXA) 10 mg tablet; Take 1 Tablet by mouth nightly at bedtime Dispense: 30 Tablet; Refill: 0 4. Insomnia disorder, persistent, with mental disorder 5. Generalized anxiety disorder - FLUoxetine (PROZAC) 40 mg capsule; Take 1 Capsule by mouth once daily Dispense: 30 Capsule; Refill: 0 - mirtazapine (REMERON) 45 mg tablet; Take 1 Tablet by mouth nightly at bedtime Dispense: 30 Tablet; Refill: 0 Psychotherapy Add-on Service Modality: Psychoeducation Focus: Educated pt on the necessity for a sleep study and the reasons why daily benzos are inappropriate Goal: Acknowledged pt's continued anxiety while also providing appropriate care Plan: Increase Zyprexa to 10 mg PO qhs for Schizoaffective D/o Increase fluoxetine to 30 mg for MDD/KULDEEP Re-start Wellbutrin XL 150 mg PO for MDD Continue mirtazapine 45 mg PO qhs for MDD/KULDEEP Placed referral for sleep study Further medication changes will depend on pt report of symptoms and tolerability RTC 09/23, right after he finishes IOP - will discuss the possibility of a rescue benzo, but advised I would not prescribe more than 15 pills for a one month supply Discussed benefits of [facility] pharmacy with patient today and strongly encouraged them to consider transferring prescriptions? yes Explained rationale for medication choices and discussed possible risks, benefits and alternative treatment with client (parent/guardian)? [x] Yes [] No Client/Guardian Response: [x] Understands Information [] Does Not Understand [] Agrees with Medication [] Refuses Medication documented in this encounter [facility] Work Phone: 09-04-2023 Hospital Discharg e instructions Patient Education 09/04/2023 19:30:30 Diet for Vomiting or Diarrhea (Adult) Diet for Vomiting or Diarrhea (Adult) Your symptoms may return or get worse after eating certain foods listed below. If this happens, stop eating these foods until your symptoms ease and you feel better. Once the vomiting stops, follow the steps below. During the first 12 to 24 hours During the first 12 to 24 hours, follow this diet: Drinks. Plain water, sport drinks like electrolyte solutions, soft drinks without caffeine, mineral water (plain or flavored), clear fruit juices, and decaffeinated tea and coffee. Soups. Clear broth. Desserts. Plain gelatin, popsicles, and fruit juice bars. As you feel better, you may add 6 to 8 ounces of yogurt per day. If you have diarrhea, don't have foods or drinks that contain sugar, high-fructose corn syrup, or sugar alcohols. During the next 24 hours During the next 24 hours you may add the following to the above: Hot cereal, plain toast, bread, rolls, and crackers Plain noodles, rice, mashed potatoes, and chicken noodle or rice soup Unsweetened canned fruit (but not pineapple) and bananas Don't eat more than 15 grams of fat a day. Do this by staying away from margarine, butter, oils, mayonnaise, sauces, gravies, fried foods, peanut butter, meat, poultry, and fish. Don't eat much fiber. Stay away from raw or cooked vegetables, fresh fruits (except bananas), and bran cereals. Limit how much caffeine and chocolate you have. Do not use any spices or seasonings except salt. During the next 24 hours Slowly go back to your normal diet, as you feel better and your symptoms ease. 8916-1846 [employer]. [address] [place] [address]. All rights reserved. This information is not intended as a substitute for professional medical care. Always follow your healthcare professional's instructions. Follow Up Care 09/04/2023 16:15:35 With:MACY HUIZAR DO Address: [address] [place], [place] [phone] When:2-4 days With:CORTNEY VERDE MD Address: [address] [phone] When:2-4 days With:Go to emergency room if symptoms worsen Address:Unknown When:2-4 days [facility] 09-04-2023 Note Discharge Instructions Thank you for allowing [facility] to assist you with your healthcare needs. The following is important discharge information regarding your hospital visit. Diagnosis from Today's Visit Vomiting Vomiting What to Do Next Instructions from Your Care Team No qualifying data available. Post Acute Orders No qualifying data available. You Need to Schedule the Following Appointments Follow Up with MACY HUIZAR DO When Within 2-4 days Where: [address] [place] [phone] Follow Up with CORTNEY VERDE MD When Within 2-4 days Where: [address] [place] [address]- [phone] Follow Up with Go to emergency room if symptoms worsen When Within 2-4 days Allergies Percocet Seroquel Zoloft Medications Please ask your primary doctor or pharmacist before taking any other medication not listed, including over the counter drugs, herbal medications, vitamins and or supplements as they may interact with your home medications. What How Much When Instructions Last Dose Unchanged ARIPiprazole (ARIPiprazole 15 mg oral tablet) 1 tab(s) by mouth Once a day Unchanged buPROPion (buPROPion 300 mg/ 24 hours (XL) oral tablet, extended release) 1 tab(s) by mouth Once a day Unchanged cloNIDine (cloNIDine 0.2 mg oral tablet) 1 tab(s) by mouth Two (2) times a day Unchanged metFORMIN (MetFORMIN (Eqv-Glucophage XR) 500 mg oral tablet, EXTENDED RELEASE) 1 tab(s) by mouth Once a day Unchanged mirtazapine (mirtazapine 30 mg oral tablet) 1 tab(s) by mouth Daily at bedtime Unchanged nabumetone (nabumetone 500 mg oral tablet) 2 tab(s) by mouth Two (2) times a day Duration: 7 Days Unchanged testosterone (Testosterone Cypionate 200 mg/ mL intramuscular solution) 2 Milliliter Intramuscular Every other week Please take this list to your next doctor s visit. Bring all medications you take, including over the counter medications, herbals and other supplements with you to your doctor s visit. Patients and families are reminded to discard old lists and to update any records with all medication providers or retail pharmacies. Education Materials Diet for Vomiting or Diarrhea (Adult) Your symptoms may return or get worse after eating certain foods listed below. If this happens, stop eating these foods until your symptoms ease and you feel better. Once the vomiting stops, follow the steps below. During the first 12 to 24 hours During the first 12 to 24 hours, follow this diet: Drinks. Plain water, sport drinks like electrolyte solutions, soft drinks without caffeine, mineral water (plain or flavored), clear fruit juices, and decaffeinated tea and coffee. Soups. Clear broth. Desserts. Plain gelatin, popsicles, and fruit juice bars. As you feel better, you may add 6 to 8 ounces of yogurt per day. If you have diarrhea, don't have foods or drinks that contain sugar, high-fructose corn syrup, or sugar alcohols. During the next 24 hours During the next 24 hours you may add the following to the above: Hot cereal, plain toast, bread, rolls, and crackers Plain noodles, rice, mashed potatoes, and chicken noodle or rice soup Unsweetened canned fruit (but not pineapple) and bananas Don't eat more than 15 grams of fat a day. Do this by staying away from margarine, butter, oils, mayonnaise, sauces, gravies, fried foods, peanut butter, meat, poultry, and fish. Don't eat much fiber. Stay away from raw or cooked vegetables, fresh fruits (except bananas), and bran cereals. Limit how much caffeine and chocolate you have. Do not use any spices or seasonings except salt. During the next 24 hours Slowly go back to your normal diet, as you feel better and your symptoms ease. [id number] [employer]. [address] [place] [address]. All rights reserved. This information is not intended as a substitute for professional medical care. Always follow your healthcare professional's instructions. Additional Information VACCINATE! IT SAVES LIVES! Members of the community who have not yet received the COVID-19 vaccine and would like to receive it can visit one of [facility] vaccine clinics. There are many vaccine clinic locations within the [facility]. For locations and available times, please visit [email or web address] [email or web address] It is important to note that some COVID mobile vaccine clinics are held outdoors and may be canceled in rainy or stormy conditions. To learn more about pediatric vaccinations (ages 5-11), we invite you to visit the [facility] webpage. [email or web address] [email or web address] [email or web address] To learn more about the COVID-19 vaccine, we invite you to visit the CDC website for a list of frequently asked questions. https://www.cdc.gov/coronavirus/ 2019-ncov/vaccines/faq.html [facility] Patient Portal Access Instructions: Stay connected with your healthcare team and access your personal medical information anytime with the [facility] Patient Portal. If you would like a full copy of your medical records please contact the [facility] Medical Records Department Sunday through Sunday between 8a.m. and 4:30p.m. Please follow the directions below to access the portal: 1.Access the email account you provided upon registration to the [facility].2.Look for an invitation email from [facility].3.Open the email and access the invitation link: Accept Invitation to [facility]4.Fill in the required emerson to create your account. Sign into [email or web address] with your username and password that you created in the above steps to stay up to date. You can then view a summary of results, a summary of your visits, and the ability to download your summaries to your computer or send the information securely to a physician. Remember that your healthcare information is confidential, so carefully consider who you will allow to register on the [facility] Patient Portal for access to your information. You can also access the [facility] Patient Portal on the [employer] rody. Simply click on Health Records under Health Data and then click on the [employer] logo. HOW TO SAFELY DISPOSE OF PRESCRIPTION MEDICATIONS Please use one of the following methods to safely dispose of your unused medications. 1.Use a drug disposal kit: the drug disposal pouch allows you to safely discard your old and unused drugs. Ask your nurse to give you one when you are discharged.2.Visit a local take-back location: Many local pharmacies and police departments have programs that collect old and unwanted prescription drugs. Call your local pharmacy or go to http://bit.Appwapp/8F5Hj1b to find one close to you.3.Make use of household items: Use cat litter or old coffee grounds to dispose medications if other options are not available. Mix your drugs with these household products, seal them in an airtight container and throw it into the garbage. Call [facility]: [phone] to be sure your drugs can be disposed of in this way. Some medicines may require a different approach.4.Never flush your medications down the toilet. IF YOU HAVE BEEN PRESCRIBED AN OPIOIDS FOR PAIN If you have been prescribed an opioid (such as hydrocodone, oxycodone or morphine), it is critical to understand the possible side effects and risks of opioid pain medications. Even when taken as directed, opioids can have several side effects including: Tolerance, meaning you might need to take more of a medication for the same pain relief. Nausea, vomiting and/or constipation. Sleepiness, dizziness, dry mouth, confusion, depression or itching. Physical dependence, meaning you have withdrawal symptoms when a medication is stopped ? this can develop within a few days. KNOW YOUR RESPONSIBILITIES It is important to know exactly how much and how often to take the opioid pain medications you are prescribed. Never take opioids in higher amounts or more often than prescribed. Do not combine opioids with alcohol or other drugs that cause drowsiness, such as benzodiazepines, also known as benzos, including diazepam and alprazolam, muscle relaxants or sleep aids. Never sell or share prescription opioids. This is illegal. Store opioids in a secure place and out of reach of others (including children, family, friends and visitors). The last page(s) of this document has been signed and retained as a CHART COPY Signatures Patient Education Materials Diet for Vomiting or Diarrhea (Adult) Medication Leaflets My discharge plan and instructions have been reviewed and explained to me and I,KENDALL ALEJANDRO understand my current condition and have read and understand these discharge instructions. I have received a written copy of the plan/instructions. If I have questions, I am aware that I should contact my doctor. Patient/Demand Planner Signature: Date/Time: Relationship to Patient: Witness Name/Signature: Date/Time: [facility] 09-04-2023 Note ORIGINAL EXAMINATION: CT OF THE ABDOMEN AND PELVIS WITH CONTRAST09/04/2023 6:[address] ABDOMEN/PELVIS WITH CONTRAST TECHNIQUE: CT of the abdomen and pelvis was performed with the administration of intravenous contrast. Multiplanar reformatted images are provided for review. Automated exposure control, iterative reconstruction, and/or weight based adjustment of the mA/kV was utilized to reduce the radiation dose to as low as reasonably achievable. COMPARISON: None available HISTORY: ORDERING SYSTEM PROVIDED HISTORY: Reason for Exam: epigastric abd pain FINDINGS: The size, density, and morphology of the liver, spleen, adrenals, kidneys, pancreas and unopacified loops of bowel are unremarkable. The opacified aorta demonstrates normal size and morphology without aneurysmal dilation or dissection. There are no enlarged lymph nodes by pathologic size criteria. Appendix is normal. There is no free fluid within the pelvis. The bladder and pelvic organs have an unremarkable CT appearance. The osseous structures are without gross lytic or sclerotic lesion. The lung bases are clear. IMPRESSION: No acute intra-abdominal intrapelvic pathology. Interpreted by: Randolph Steinberg MD Preliminary Report By: Randolph Steinberg MD Electronically signed By Randolph Steinberg MD Dictated Date: 09/04/2023 7:01:27 PM Prelim Date: 09/04/2023 7:11:12 PM Sign Date: 09/04/2023 7:11:12 PM Ordering Provider: [facility] 09-02-2023 Note HNO ID: [id number] Author: DANIELLA PADRON PA-C Service: ? Author Type: Physician Disease Education Specialist Type: Progress Notes Filed: 09/02/2023 14:55 Note Text: This note was created using NoteWriter. Subjective Gini Alejandro is a 23 year old adult. HPI Patient presents with vomiting over the past 8 days. He states 2 weeks ago he did have COVID. His congestion and cough really has gone away from that. He states he did vomit a little during that but the past 8 days has vomited every day. He is drinking some fluids and keeping some of that down. Has not eaten much the past 5 days. States has some abdominal pain when he is vomiting but denies any right now. He has had some diarrhea. Does have chronic problems with diarrhea however. He denies a fever. He has had a hysterectomy, is a transgender male. Review of Systems Gastrointestinal: Positive for abdominal pain, diarrhea, nausea and vomiting. Genitourinary: Negative. Musculoskeletal: Negative. All other systems reviewed and are negative. PAST MEDICAL HISTORY Diagnosis Date Anxiety Bipolar 1 disorder (HCC) Depression Insomnia PTSD (post-traumatic stress disorder) Current Outpatient Medications Medication Sig Dispense Refill semaglutide (OZEMPIC) 0.25 mg or 0.5 mg (2 mg/3 mL) pen INJECT 0.5 MG INTO THE SKIN ONCE A WEEK doxycycline hyclate (VIBRAMYCIN) 100 mg capsule Take 1 capsule by mouth once daily. metFORMIN ER (GLUCOPHAGE XR) 500 mg 24 hr tablet TAKE 2 TABLETS BY MOUTH ONCE DAILY WITH BREAKFAST mirtazapine (REMERON) 45 mg tablet Take 45 mg by mouth daily at bedtime. OLANZapine (ZYPREXA) 5 mg tablet Take 5 mg by mouth daily at bedtime. ondansetron (ZOFRAN) 4 mg tablet Take 4 mg by mouth every 6 hours. BD TUBERCULIN SYRINGE 1 mL 25 gauge x 5/8 USE FOR WEEKLY SUBCUTANEOUS INJECTIONS omeprazole (PRILOSEC) 40 mg capsule Take 1 capsule by mouth once daily. 30 capsule 2 testosterone cypionate (DEPO-TESTOSTERONE) 100 mg/mL injection Inject 50 mg intramuscularly one time a week. ondansetron orally disintegrating (ZOFRAN ODT) 4 mg disintegrating tablet Take 1 tablet by mouth every 8 hours as needed. 12 tablet 0 buPROPion XL (WELLBUTRIN XL) 150 mg 24 hr tablet Take 1 tablet by mouth every afternoon. (Patient not taking: Reported on 09/02/2023) cloNIDine HCl (CATAPRES) 0.2 mg tablet Take 0.2 mg by mouth daily at bedtime. (Patient not taking: Reported on 09/02/2023) doxepin capsule 25 mg TAKE 2 CAPSULES BY MOUTH NIGHTLY AT BEDTIME (Patient not taking: Reported on 09/02/2023) lurasidone (LATUDA) 20 mg tablet Take 1 tablet by mouth once daily. (Patient not taking: Reported on 06/14/2021 ) lamoTRIgine ER (LAMICTAL XR) 50 mg 24 hr tablet Take 1 tablet by mouth once daily. (Patient not taking: Reported on 06/14/2021 ) traZODone (DESYREL) 50 mg tablet 1-3 tabs at night. (Patient not taking: Reported on 06/14/2021 ) No current facility-administered medications for this visit. No past surgical history on file. FAMILY HISTORY Problem Relation Age of Onset Alcohol/Drug Mother Diabetes Father Depression Father other (hemophillia) Brother Diabetes Maternal Grandfather Hypertension Paternal Grandmother other (B12 def) Paternal Grandmother Hypertension Paternal Grandfather Social History Tobacco Use Smoking status: Every Day Packs/day: 0.50 Years: 4.00 Additional pack years: 0.00 Total pack years: 2.00 Types: Cigarettes Smokeless tobacco: Former Types: Chew Substance Use Topics Alcohol use: Yes Comment: sometimes Drug use: No Objective BP 130/88 Pulse 117 Temp 36.9 ?C (98.5 ?F) Resp 20 Wt 125.5 kg (276 lb 9.6 oz) LMP 07/09/2020 SpO2 97% Physical Exam Vitals reviewed. Constitutional: Appearance: Normal appearance. HENT: Head: Normocephalic and atraumatic. Mouth/Throat: Mouth: Mucous membranes are moist. Pharynx: Oropharynx is clear. Cardiovascular: Rate and Rhythm: Normal rate and regular rhythm. Heart sounds: Normal heart sounds. Pulmonary: Effort: Pulmonary effort is normal. Breath sounds: Normal breath sounds. Abdominal: General: Abdomen is flat. Bowel sounds are normal. There is no distension. Palpations: Abdomen is soft. Tenderness: There is no abdominal tenderness. There is no guarding or rebound. Musculoskeletal: Cervical back: Neck supple. Skin: General: Skin is warm and dry. Neurological: Mental Status: She is alert. Assessment and Plan ASSESSMENT/PLAN: 1. Nausea and vomiting, unspecified vomiting type - ICD9: 787.01, ICD10: R11.2 Lab is closed for today however patient does not appear toxic on exam. His abdominal exam is benign. I will check basic labs tomorrow. Discussed however if he develops abdominal pain, fever, lightheadedness, dizziness not able to urinate needs to really be seen in the emergency department. Caitlinfran for nausea sent. Patient agreeable. - CBC + DIFF - COMP METABOLIC PANEL - LIPASE BLD MAGNUS [place] (more content not included)... [facility] 09-02-2023 History of Presen t illness Narrative This note was created using NoteWriter. Subjective Gini Alejandro is a 23 year old adult. HPI Patient presents with vomiting over the past 8 days. He states 2 weeks ago he did have COVID. His congestion and cough really has gone away from that. He states he did vomit a little during that but the past 8 days has vomited every day. He is drinking some fluids and keeping some of that down. Has not eaten much the past 5 days. States has some abdominal pain when he is vomiting but denies any right now. He has had some diarrhea. Does have chronic problems with diarrhea however. He denies a fever. He has had a hysterectomy, is a transgender male. Review of Systems Gastrointestinal: Positive for abdominal pain, diarrhea, nausea and vomiting. Genitourinary: Negative. Musculoskeletal: Negative. All other systems reviewed and are negative. PAST MEDICAL HISTORY Diagnosis Date Anxiety Bipolar 1 disorder (HCC) Depression Insomnia PTSD (post-traumatic stress disorder) Current Outpatient Medications Medication Sig Dispense Refill semaglutide (OZEMPIC) 0.25 mg or 0.5 mg (2 mg/3 mL) pen INJECT 0.5 MG INTO THE SKIN ONCE A WEEK doxycycline hyclate (VIBRAMYCIN) 100 mg capsule Take 1 capsule by mouth once daily. metFORMIN ER (GLUCOPHAGE XR) 500 mg 24 hr tablet TAKE 2 TABLETS BY MOUTH ONCE DAILY WITH BREAKFAST mirtazapine (REMERON) 45 mg tablet Take 45 mg by mouth daily at bedtime. OLANZapine (ZYPREXA) 5 mg tablet Take 5 mg by mouth daily at bedtime. ondansetron (ZOFRAN) 4 mg tablet Take 4 mg by mouth every 6 hours. BD TUBERCULIN SYRINGE 1 mL 25 gauge x 5/8 USE FOR WEEKLY SUBCUTANEOUS INJECTIONS omeprazole (PRILOSEC) 40 mg capsule Take 1 capsule by mouth once daily. 30 capsule 2 testosterone cypionate (DEPO-TESTOSTERONE) 100 mg/mL injection Inject 50 mg intramuscularly one time a week. ondansetron orally disintegrating (ZOFRAN ODT) 4 mg disintegrating tablet Take 1 tablet by mouth every 8 hours as needed. 12 tablet 0 buPROPion XL (WELLBUTRIN XL) 150 mg 24 hr tablet Take 1 tablet by mouth every afternoon. (Patient not taking: Reported on 09/02/2023) cloNIDine HCl (CATAPRES) 0.2 mg tablet Take 0.2 mg by mouth daily at bedtime. (Patient not taking: Reported on 09/02/2023) doxepin capsule 25 mg TAKE 2 CAPSULES BY MOUTH NIGHTLY AT BEDTIME (Patient not taking: Reported on 09/02/2023) lurasidone (LATUDA) 20 mg tablet Take 1 tablet by mouth once daily. (Patient not taking: Reported on 06/14/2021 ) lamoTRIgine ER (LAMICTAL XR) 50 mg 24 hr tablet Take 1 tablet by mouth once daily. (Patient not taking: Reported on 06/14/2021 ) traZODone (DESYREL) 50 mg tablet 1-3 tabs at night. (Patient not taking: Reported on 06/14/2021 ) No current facility-administered medications for this visit. No past surgical history on file. FAMILY HISTORY Problem Relation Age of Onset Alcohol/Drug Mother Diabetes Father Depression Father other (hemophillia) Brother Diabetes Maternal Grandfather Hypertension Paternal Grandmother other (B12 def) Paternal Grandmother Hypertension Paternal Grandfather Social History Tobacco Use Smoking status: Every Day Packs/day: 0.50 Years: 4.00 Additional pack years: 0.00 Total pack years: 2.00 Types: Cigarettes Smokeless tobacco: Former Types: Chew Substance Use Topics Alcohol use: Yes Comment: sometimes Drug use: No Objective BP 130/88 Pulse 117 Temp 36.9 C (98.5 F) Resp 20 Wt 125.5 kg (276 lb 9.6 oz) LMP 07/09/2020 SpO2 97% Physical Exam Vitals reviewed. Constitutional: Appearance: Normal appearance. HENT: Head: Normocephalic and atraumatic. Mouth/Throat: Mouth: Mucous membranes are moist. Pharynx: Oropharynx is clear. Cardiovascular: Rate and Rhythm: Normal rate and regular rhythm. Heart sounds: Normal heart sounds. Pulmonary: Effort: Pulmonary effort is normal. Breath sounds: Normal breath sounds. Abdominal: General: Abdomen is flat. Bowel sounds are normal. There is no distension. Palpations: Abdomen is soft. Tenderness: There is no abdominal tenderness. There is no guarding or rebound. Musculoskeletal: Cervical back: Neck supple. Skin: General: Skin is warm and dry. Neurological: Mental Status: She is alert. Assessment and Plan ASSESSMENT/PLAN: 1. Nausea and vomiting, unspecified vomiting type - ICD9: 787.01, ICD10: R11.2 Lab is closed for today however patient does not appear toxic on exam. His abdominal exam is benign. I will check basic labs tomorrow. Discussed however if he develops abdominal pain, fever, lightheadedness, dizziness not able to urinate needs to really be seen in the emergency department. Humberto for nausea sent. Patient agreeable. - CBC + DIFF - COMP METABOLIC PANEL - LIPASE BLD Daniella Padron PA-C documented in this encounter [facility] 08-08-2023 History of Presen t illness Narrative Chief Complaint / HPI: Chief Complaint Patient presents with Primary Care Medical Home F/u from last visit and wants to talk about the med that he is on HPI Problems Assessed, Plan, Orders & Medical Decision Making 1. Elevated liver enzymes (Primary) Overview: Pt was found to have elevated liver enzymes on labs. He states that he does take tylenol regularly and we discussed limiting that. He jeff not take nay OTC supplements. He states that at one time someone told him he could have fatty liver. He states that for 6 months he has been having daily orange diarrhea occasionally with some blood. He has trouble sometimes with swallowing and chokes on water. I would like for him to see GI for possible scopes. I also asked him to start keeping a food journal with s/s as well as start a PPI Assessment & Plan: Labs pending RTC in 6-8 weeks Orders: - BLOOD COUNT COMPLETE AUTO&AUTO DIFRNTL WBC - COMPREHENSIVE METABOLIC PANEL - LIPID PANEL WITH LDL:HDL RATIO - HEPATIC FUNCTION PANEL - VIRAL HEPATITIS SCREENING AND DIAGNOSIS (HAV AND HBV) - ASSAY OF GLUTAMYLTRASE GAMMA - HEPATITIS C ANTIBODY WITH REFLEX TO HCV, RNA, QUANTITATIVE, REAL-TIME PCR (REFL) 2. Diarrhea, unspecified type - REFERRAL TO GASTROENTEROLOGY - omeprazole (PRILOSEC) [address] capsule; Take 1 Capsule by mouth every morning before breakfast, Disp-30 Capsule, R-2 e-Prescribing Dispense: 30 Capsule; Refill: 2 - BLOOD COUNT COMPLETE AUTO&AUTO DIFRNTL WBC - COMPREHENSIVE METABOLIC PANEL - LIPID PANEL WITH LDL:HDL RATIO - HEPATIC FUNCTION PANEL - VIRAL HEPATITIS SCREENING AND DIAGNOSIS (HAV AND HBV) - ASSAY OF GLUTAMYLTRASE GAMMA - HEPATITIS C ANTIBODY WITH REFLEX TO HCV, RNA, QUANTITATIVE, REAL-TIME PCR (REFL) 3. Prediabetes Overview: Patient taking metformin, no associated complaints. Was unable to fill ozempic due to not being covered. 12/25/22: patient continuing on metformin, no associated complaints 08/08/23 Pt states that he would like to try again for GLP medication to see if it could help with the pre-diabetes and weight loss. He states that he is doing well on the zyprexa but that it has caused him to gain 30lbs. He also struggles with daily diarrhea Assessment & Plan: We will attempt to get the GLP medication covered Pt aware that it can make gallbladder issues worse. He was instructed to let us know if that occurs Orders: - semaglutide (OZEMPIC) 0.25 mg or 0.5 mg (2 mg/3 mL); Inject 0.5 mg into the skin once a week Ok to switch to wegovy based on insurance coverage, Disp-3 mL, R-0 e-Prescribing, Long-term Dispense: 3 mL; Refill: 0 4. Obesity, Class III, BMI 40-49.9 (morbid obesity) ([facility]) Overview: Patient is trying to lose weight, states he had been good with diet but recently has not been eating healthy. Was started on strattera for ADHD at [facility]. Was not effective for ADHD but was helpful with weight loss, lost 20 pounds in that period while on it but regained that weight plus additional pounds after stopping it. Considering starting GLP-1. 08/25/22: patient contacted insurance and was informed that saxenda is approved under their insurance plan Orders: - semaglutide (OZEMPIC) 0.25 mg or 0.5 mg (2 mg/3 mL); Inject 0.5 mg into the skin once a week Ok to switch to wegovy based on insurance coverage, Disp-3 mL, R-0 e-Prescribing, Long-term Dispense: 3 mL; Refill: 0 5. Gender dysphoria Overview: On Testosterone since 05/2020 Mastectomy 10/16/22 12/25/22 Patient had top surgery with Dr. Toribio 10/16/22, healing well. Has had follow-up with her already and patient is pleased with results. Orders: - ASSAY OF TOTAL ESTRADIOL - ASSAY OF TESTOSTERONE TOTAL 6. Screening for ischemic heart disease - LIPID PANEL WITH LDL:HDL RATIO 7. Pelvic pain Overview: Continues to have pelvic and intravaginal U/S and were normal. Seen by gynocology but unclear cause. Has appt 10/31/22 with pelvic pain specialist. 08/08/23 Pt still has both ovaries and struggles with cysts and pain. He declines OCP/ BC as it makes me crazy and is not ready for possible surgery/second opinion to remove one or both ovaries. He states that he typically takes tylenol and or motrin for the pain. We discussed limiting tylenol. BMI Readings from Last 3 Encounters: 08/08/23 42.73 kg/m 07/27/23 43.33 kg/m 12/25/22 39.08 kg/m BMI follow up plan for 18+: The patient was counseled regarding nutrition and physical activity weight loss medication prescribed BMI is not an accurate reflection of overall health status and is a problematic measurement for many reasons. The BMI was intended to be a statistical population measure, not an individual health metric and is rooted in normative and racist ideals of body size. We discussed other metabolic indicators of health. Staying committed to physical activity and mindfulness, including mindful eating, can improve or maintain overall well-being and mood. Tobacco Use and Intervention: History Smoking Status Every Day Packs/day: 1.00 Years: 0.00 Types: Cigarettes Smokeless Tobacco Never Ready to quit: Not Answered Counseling given: Not Answered Tobacco comments: 10/24: none in 2mos Plan: Tobacco Intervention: provided smoking cessation counseling Future Appointments Date Time Provider Department Center 10/19/2023 11:30 AM Andrew Turpin APRN,[facility] ROS & Physical Exam Review of Systems Constitutional: Negative. Negative for fever. HENT: Positive for trouble swallowing. Eyes: Negative. Respiratory: Negative. Cardiovascular: Negative. Breasts: Negative. Gastrointestinal: Positive for abdominal pain, blood in stool, diarrhea, nausea, vomiting and indigestion. Negative for abdominal distention. Endocrine: Negative. Genitourinary: Negative. Musculoskeletal: Negative. Skin: Negative. Allergic/Immunologic: Negative. Neurological: Negative. Hematological: Negative. Psychiatric/Behavioral: Positive for dysphoric mood. The patient is nervous/anxious. Physical Exam Vitals and nursing note reviewed. Constitutional: General: He is not in acute distress. Appearance: Normal appearance. He is well-developed. He is not ill-appearing or diaphoretic. HENT: Head: Normocephalic and atraumatic. Nose: Nose normal. Mouth/Throat: Pharynx: Uvula midline. No oropharyngeal exudate. Eyes: General: Lids are normal. Right eye: No discharge. Left eye: No discharge. Conjunctiva/sclera: Conjunctivae normal. Pupils: Pupils are equal, round, and reactive to light. Neck: Thyroid: No thyroid mass or thyromegaly. Trachea: Trachea normal. No tracheal deviation. Cardiovascular: Rate and Rhythm: Normal rate and regular rhythm. Chest Wall: PMI is not displaced. Pulses: Normal pulses. Heart sounds: Normal heart sounds, S1 normal and S2 normal. No murmur heard. No friction rub. No gallop. Pulmonary: Effort: Pulmonary effort is normal. No respiratory distress. Breath sounds: Normal breath sounds. No decreased breath sounds, wheezing, rhonchi or rales. Abdominal: General: Bowel sounds are normal. There is no distension. Palpations: Abdomen is soft. There is no hepatomegaly or splenomegaly. Tenderness: There is no abdominal tenderness. Musculoskeletal: General: No tenderness or deformity. Normal range of motion. Cervical back: Normal range of motion and neck supple. No erythema or rigidity. Lymphadenopathy: Cervical: No cervical adenopathy. Skin: General: Skin is warm and dry. Coloration: Skin is not pale. Findings: No abrasion, erythema or rash. Neurological: Mental Status: He is alert and oriented to person, place, and time. Motor: No tremor, atrophy, abnormal muscle tone or seizure activity. Gait: Gait normal. Psychiatric: Mood and Affect: Mood normal. Speech: Speech normal. Behavior: Behavior normal. Thought Content: Thought content normal. Associated Problem(s): Elevated liver enzymes Labs pending RTC in 6-8 weeks Associated Problem(s): Prediabetes We will attempt to get the GLP medication covered Pt aware that it can make gallbladder issues worse. He was instructed to let us know if that occurs Images from the original note were not included. Rooming Note: Kendall presents to [facility] today for [facility] (F/u from last visit and wants to talk about the med that he is on) Since Last Visit? Been to an Urgent Care, ER or Hospital? no Seen any other providers / specialists? Yes a therapist Received any vaccines? no Had any tests, like a Xray, mammogram or colonoscopy? no Vaccines Recommended Today: Health Maintenance Due Topic Date Due Imm-Hepatitis B (1 of 3 - 3-dose series) Never done [id number] (1) Never done Imm-Varicella (1 of 2 - 2-dose childhood series) Never done Imm-Pneumococcal (1 - PCV) Never done Imm-Influenza (1) 03/02/2023 SBIRT 08/08/2023 11:02 AM Little interest or pleasure in doing things Not at all Feeling down, depressed or hopeless [include irritable if under 18] Not at all PHQ2 Score 0 Little interest or pleasure in doing things Not at all Feeling down, depressed or hopeless [include irritable if under 18] Not at all Trouble falling or staying asleep, or sleeping too much Not at all Feeling tired or having little energy Not at all Poor appetite or overeating Not at all Feeling bad about yourself - or that you are a failure or have let yourself or your family down Not at all Trouble concentrating on things like school work, reading or watching TV? Not at all Moving or speaking so slowly that other people could have noticed? Or the opposite - being so fidgety or restless that you have been moving around a lot more than usual Not at all Thoughts you would be better off or of hurting yourself in some way Not at all If you checked off any problems, how difficult have these problems made it for you to do your work, take care of things at home, or get along with other people? Not difficult at all PHQ-9 Total Score (Auto Calculated) 0 Depression Severity: None-minimal AUDIT Total Score (Auto Calculated) 2 at 07/25/2022 1:59 PM PHQ-9 Total Score (Auto Calculated) 0 at 08/08/2023 11:02 AM KULDEEP-7 11/08/2020 8:00 AM Feeling nervous, anxious, or on edge: Nearly every day Not being able to stop or control worrying: Several days Worrying too much about different things: Nearly every day Trouble relaxing: More than half the days Being so restless that it is hard to sit still: Nearly every day Becoming easily annoyed or irritable: More than half the days (getting better) Feeling afraid, as if something awful might happen: More than half the days Kuldeep-7 Total (!) 16 Anxiety Severity: Severe Anxiety Health Maintenance Due Topic Date Due Hepatitis C Screening Never done Imm-Hepatitis B (1 of 3 - 3-dose series) Never done [id number] (1) Never done Imm-Varicella (1 of 2 - 2-dose childhood series) Never done Imm-Pneumococcal (1 - PCV) Never done Chlamydia Screening Never done Gonorrhea Screening Never done HIV Screening Never done Annual Wellness Visit 05/18/2021 Imm-Influenza (1) 03/02/2023 Alcohol and Drug Screen 07/02/2023 Relationship Safety Screening/Counseling 07/25/2023 Goals as of 08/08/2023 at 11:03 AM Diploma (pt-stated) Kendall will work towards his diploma over the next 12 months. Guitar (pt-stated) Patient will play his guitar at least 1 hour a week for the next 3 months. 10/20- Pt goal is on hold as the pt's guitar is broken. BB. Motivation (pt-stated) Patient will clean the house on his day off once every 2 weeks for the next 6 months. 10/20- Pt states having good progress on the goal and keeping things clean leading up to his top surgery on this past Sunday after which pt is focusing on recovery for time being. BB. PHQ-9 Total Score (Auto Calculated) < 15 Patient will lower his PHQ-9 score to 15 or lower within in the next 6 months. Patient Active Problem List Diagnosis PTSD (post-traumatic stress disorder) Nicotine use disorder Bipolar 2 disorder ([facility]) Gender dysphoria Attention deficit hyperactivity disorder (ADHD), predominantly inattentive type Pelvic pain History of suicide attempt S/P laparoscopic hysterectomy Obesity, Class III, BMI 40-49.9 (morbid obesity) ([facility]) Acne vulgaris Weight gain due to medication Abnormal movements Prediabetes Smoking STI testing offered: decline documented in this encounter [employer] Phone: 07-31-2023 History of Presen t illness Narrative Addended by: MARGARITA KELLY on: 07/31/2023 04:39 PM Modules accepted: Orders Associated Problem(s): Obesity, Class III, BMI 40-49.9 (morbid obesity) ([facility]) Assessment sub-optimally managed at this time and would like to discuss option Plan Referral Management per specialist Patient education Associated Problem(s): Gender dysphoria Images from the original note were not included. Gender Affirming Care - Follow-Up Visit: Name Kendall Gender Identity transgender male Pronouns he 07/27/2023 10:18 AM 07/27/2023 12:00 AM 05/17/2023 12:00 AM [facility] Prescribed testosterone cypionate Inject 0.55mL into the muscle every 7 days (200 mg/mL oil) Inject 0.55mL into the muscle every 7 days (200 mg/mL oil) Inject 0.55mL into the muscle every 7 days (200 mg/mL oil) Medication marked as long-term Side effects? None reported Adherence? Mostly adherent Day in dosing cycle Sunday Energy - Mood Depressed mood Voice Changes Stable Facial Hair Present Body Hair Present Menses No issue reported Last Testosterone 09/19/2021: 476 06/02/2022: 480 09/28/2022: 723 Last H&H 09/19/2021: 15.0 06/02/2022: 15.5 09/28/2022: 15.6 // 09/19/2021: 45.2 06/02/2022: 46.8 09/28/2022: 47.0 Assessment: well managed at this time and stable / unchanged Plan: Continue same management plan Continue meds as previously prescribed Images from the original note were not included. Chief Complaint / HPI: Chief Complaint Patient presents with Lab Work Needed Weight Loss Pt would like to discuss weight loss HPI Presents for GAC f/u Injects every Sunday Notes compliance generally, but have missed ~ 3 doses since last appt Also notes would like to discuss weight lost Notes has gained ~ 25 Lbs since started on Zyprexa He is a prediabetic and has a hx of PCOS Problems Assessed, Plan, Orders & Medical Decision Making 1. Gender dysphoria (Primary) Overview: On Testosterone since 05/2020 Mastectomy 10/16/22 12/25/22 Patient had top surgery with Dr. Toribio 10/16/22, healing well. Has had follow-up with her already and patient is pleased with results. Assessment & Plan: Gender Affirming Care - Follow-Up Visit: Name Kendall Gender Identity transgender male Pronouns he 07/27/2023 10:18 AM 07/27/2023 12:00 AM 05/17/2023 12:00 AM [facility] Prescribed testosterone cypionate Inject 0.55mL into the muscle every 7 days (200 mg/mL oil) Inject 0.55mL into the muscle every 7 days (200 mg/mL oil) Inject 0.55mL into the muscle every 7 days (200 mg/mL oil) Medication marked as long-term Side effects? None reported Adherence? Mostly adherent Day in dosing cycle Sunday Energy - Mood Depressed mood Voice Changes Stable Facial Hair Present Body Hair Present Menses No issue reported Last Testosterone 09/19/2021: 476 06/02/2022: 480 09/28/2022: 723 Last H&H 09/19/2021: 15.0 06/02/2022: 15.5 09/28/2022: 15.6 // 09/19/2021: 45.2 06/02/2022: 46.8 09/28/2022: 47.0 Assessment: well managed at this time and stable / unchanged Plan: Continue same management plan Continue meds as previously prescribed Orders: - insulin syringe-needle U-100 1 mL 25 gauge x 5/8 ; Use for weekly subcutaneous injectionse-Prescribing, Disp-12 Each, R-2 Dispense: 12 Each; Refill: 2 - needle, disp, 18 G (BD REGULAR BEVEL NEEDLES) 18 gauge x 1 ndle; Use to draw medication for injection weekly, Disp-20 Each, R-1 e-Prescribing Dispense: 20 Each; Refill: 1 - testosterone cypionate (DEPO-TESTOSTERONE) 200 mg/mL injection; Inject 0.55mL into the muscle every 7 days, Disp-10 mL, R-2 e-Prescribing, Long-term Dispense: 10 mL; Refill: 2 - ASSAY OF TOTAL ESTRADIOL - ASSAY OF TESTOSTERONE TOTAL - COMPREHENSIVE METABOLIC PANEL - BLOOD COUNT COMPLETE AUTO&AUTO DIFRNTL WBC 2. Acne vulgaris Overview: Patient reports facial acne as well as shoulders. Previously on doxycycline which brought resolution but acne returned after discontinuation. Acne is at times cystic and painful. Orders: - doxycycline (VIBRAMYCIN) 100 mg capsule; Take 1 Capsule by mouth once daily, Disp-90 Capsule, R-1 e-Prescribing Dispense: 90 Capsule; Refill: 1 3. Prediabetes Overview: Patient taking metformin, no associated complaints. Was unable to fill ozempic due to not being covered. 12/25/22: patient continuing on metformin, no associated complaints Orders: - metFORMIN XR (GLUCOPHAGE-XR) 500 mg 24 hr tablet; Take 2 tablets by mouth once daily with breakfast, Disp-60 Tablet, R-5 e-Prescribing, Long-term Dispense: 60 Tablet; Refill: 5 - HEMOGLOBIN GLYCOSYLATED A1C 4. Screening for thyroid disorder - TSH REFLEX TO T4 5. Obesity, Class III, BMI 40-49.9 (morbid obesity) ([facility] Overview: Patient is trying to lose weight, states he had been good with diet but recently has not been eating healthy. Was started on strattera for ADHD at [facility]. Was not effective for ADHD but was helpful with weight loss, lost 20 pounds in that period while on it but regained that weight plus additional pounds after stopping it. Considering starting GLP-1. 08/25/22: patient contacted insurance and was informed that saxenda is approved under their insurance plan Assessment & Plan: Assessment sub-optimally managed at this time and would like to discuss option Plan Referral Management per specialist Patient education Orders: - REFERRAL TO WEIGHT MANAGEMENT BMI Readings from Last 3 Encounters: 07/27/23 43.33 kg/m 12/25/22 39.08 kg/m 09/28/22 42.61 kg/m Lifestyle measures:BMI follow up plan: The patient was counseled regarding nutrition and physical activity referred patient to Weight Management Program. BMI is not an accurate reflection of overall health status and is a problematic measurement for many reasons. The BMI was intended to be a statistical population measure, not an individual health metric and is rooted in normative and racist ideals of body size. We discussed other metabolic indicators of health. Staying committed to physical activity and mindfulness, including mindful eating, can improve or maintain overall well-being and mood. Tobacco Use and Intervention: History Smoking Status Every Day Packs/day: 1.00 Years: 0.00 Types: Cigarettes Smokeless Tobacco Never Ready to quit: Not Answered Counseling given: Not Answered Tobacco comments: 10/24: none in 2mos Plan: Tobacco Intervention: provided smoking cessation counseling No future appointments. ROS & Physical Exam ROS positive for weight gain No CP, SCOTT, Dizziness or OSB Positive for acne Physical Exam Constitutional: General: He is awake. Appearance: Normal appearance. Cardiovascular: Rate and Rhythm: Normal rate. Pulmonary: Effort: Pulmonary effort is normal. Breath sounds: Normal breath sounds and air entry. Skin: Findings: Rash present. Rash is pustular. Comments: Acne Neurological: Mental Status: He is alert. Psychiatric: Behavior: Behavior is cooperative. documented in this encounter [employer] Work Phone: 07-31-2023 Miscellaneous Notes Kendall I have looked at your labs and your T level is within acceptable limits, your estrogen level is also acceptable. Your A1C is 5.9%, please attempt to modify your diet to include low card, low fat dit, and employ regular exercise (at least 30 minutes 3x per week), and weight loss. Your AST and ALT (these are liver enzymes) are slightly elevated, I would like to repeat these, with additional tests to make sure nothing is wrong with your liver in the next week or 2. If you drink alcohol daily, I will advise to cut down, if at all can't quit drinking. If you don't drink, continue so. The rest of your labs are either witning acceptable limits, stable or are of no concerns. Please let me know should you have any questions. Margarita Kelly APRN, CNP documented in this encounter [employer] Work Phone: 07-03-2023 History of Presen t illness Narrative Tele-Health Visit Statement [employer] The patient's identity was verified and they have verbally stated that they are currently in the [facility]. The risks, benefits, and alternatives of a realtime synchronous audiovisual consultation were discussed with the patient and/or their guardian and they have given their verbal consent to this tele-health visit. 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 He insists that he is compliant, however, still taking 5 mg of Zyprexa nightly. He refuses to make f/u appointments, insisting that it only works when he calls to schedule an appt based around his work schedule, which generally results in the pt calling reporting an emergency of some sort. Today he reports that he recently starting seeing a new therapist who made me start EMDR - last week, he was told by his new therapist, his old therapist, and his EMDR therapist told him he has to start IOP, so he has enrolled at [facility], which will be M,T and R from 7-10 pm and therapy every Sunday. He reports that his anxiety has been increased significantly and he has also been extremely depressed for the last month or so. He reports compliance with all meds except he ran out of Doxepin 4-5 nights ago, and reports that everything felt the same, I'm still not sleeping at all. He denies psychotic symptoms since we spoke last. Also denies SI. f/u: Review of past med trials: Elavil (switched to Remeron for d/t inefficacy), traz (ineffective), Strattera ( suicidal thoughts ), prazosin (nightmares - states he was taken off d/t low blood pressure causing him to pass out at work), Lamictal (rash), Latuda ( wasn't effective ); Klonopin ( it's been a while, I can't remember why I stopped taking it ), Vraylar ( can't remember ), Zoloft (SI) Celexa, ( not sure ), Lexapro ( wasn't very effective, but I was very young when I took it ), and Seroquel (SI). Buspar caused him to go manic for months, and it made me very mean, Abilify- helpful but pt reports woke up one day and it stopped working ; gabapentin - ineffective Today he reports that he took the 5 mg olanzapine for 2 days and then increased to 10 mg. He hasn't had any paranoia or heard any voices since he started taking it, but he is very tired during the day. He has slept every night, and he also went to work yesterday with no issues. Denies SI. He returns to work tomorrow and feels up for it. He was on Adderall when he was 13, but reports that his parents didn't like the way it made him act, but the pt reports that he felt fine on it. Discussed that while I would be happy to do a more formal ADHD assessment, at this time I want to continue to make sure that his reported anxiety/paranoia/AH are well controlled, and then I want to start eliminating other meds, such as for example the Doxepin, before attempting to add a new med. Plan: Reduce olanzapine to 2.5 mg PO qhs for mood/psychosis/PTSD Continue all other meds as currently prescribed; will start to wean off other sedating bedtime meds if stable on olanzapine at next appt (first Doxepin) Pt to see new therapist 05/08 Pt wants ADHD assessment; advised that we need to make sure he's stable in terms of mood/anxiety/possible psychotic symptoms first Further medication changes will depend on pt report of symptoms and tolerability RTC in 4 weeks - pt prefers to call at that time to schedule and appt as his work schedule changes frequently HPI Kendall Alejandro is a 23 year old Adult here today for follow-up med management visit. Symptoms include sadness ( worse since I've been stuck at home; go back next Sunday; before that was there, normal for me ), decreased interest ( not it; kind of been the same throughout ), hopelessness, panic ( handful, 4-5; 10m; out of nowhere talk to random somebody that I know ), difficulty concentrating ( yeah ), increased fatigue ( worse last couple weeks ) and sleep disturbance ( since surgery maybe an hour or two a night sleeping on my couch very uncomfortable, have to sleep in recliner ; 1-2h; napping trying to avoid it ; not restorative). Patient denies or there is no evidence of low self-esteem, guilt, nervousness/anxiousness ( not too bad ), inflated self-esteem, decreased need for sleep, euphoric mood, hallucinations, irritability, appetite change, suicidal ideas or homicidal ideas. Weight change: h/o disordered eating does weigh self.: 50h/w. Past treatments tried include: Psychotherapy: Kelly at [facility] see her next week . Compliance with prior treatments has been good. 11/08/2020 8:00 AM Kuldeep-7 Total (!) 16 Last PHQ-9 PHQ-9 Total Score (Auto Calculated) 0 at 05/17/2023 10:52 AM HIV Care No results found for: CD4 , COPIESML , HELPSUPP If client is HIV+, provider reviewed HIV care, Viral Load, and CD4: Not applicable AIMS 11/22/2020 9:00 AM 1. Muscles of facial expression none 2. Lips and perioral area none 3. Jaw none 4. Tongue none 5. Upper (arms, wrists, hands, fingers) none 6. Lower (legs, knees, ankles, toes) none 7. Neck shoulders, hips none 8. Severity of abnormal movements none 9. Incapacitation due to abnoral movements none, normal 10. Patient's awareness of abnormal movements no awareness 11. Current problems with teeth and/or dentures no 12. Does patient usually wear dentures? no Total (items 1-7) 0 Recent Labs: T4FREE (ng/dL) Date Value 05/31/2020 1.3 TSH (uU/mL) Date Value 05/31/2020 4.3 WBC (x10E3/uL) Date Value 09/28/2022 8.1 06/02/2022 8.2 RBC (x10E6/uL) Date Value 09/28/2022 5.67 (H) 06/02/2022 5.54 (H) HGBA1C Date Value 06/02/2022 5.7 % (H) 05/31/2020 5.5 %Hb HGB (g/dL) Date Value 09/28/2022 15.6 06/02/2022 15.5 HCT (%) Date Value 09/28/2022 47.0 (H) 06/02/2022 46.8 (H) CHOL (mg/dL) Date Value 09/28/2022 127 06/02/2022 136 TRIGLYC (mg/dL) Date Value 09/28/2022 77 06/02/2022 115 HDL (mg/dL) Date Value 09/28/2022 42 06/02/2022 44 LDL (mg/dL) Date Value 09/28/2022 70 06/02/2022 71 VLDL (mg/dL) Date Value 09/28/2022 15 06/02/2022 21 GLUCOSE (mg/dL) Date Value 09/28/2022 71 06/02/2022 74 BUN (mg/dL) Date Value 09/28/2022 9 06/02/2022 10 CREATININE (mg/dL) Date Value 09/28/2022 0.98 06/02/2022 0.81 EGFR (mL/min/1.73) Date Value 09/28/2022 83 06/02/2022 105 05/31/2020 111 05/31/2020 128 AST (IU/L) Date Value 09/28/2022 22 06/02/2022 17 ALT (IU/L) Date Value 09/28/2022 24 06/02/2022 25 BILIRUBIN (mg/dL) Date Value 09/28/2022 0.5 06/02/2022 0.3 No results found for: URAMPHETQL , URCOCAINEQL , URTHCQL , UROPIATEQL , URETOHQL , URBUPRENQL , URBENZOQL , URMETHDQL Review of Systems Constitutional: Negative for appetite change. Cardiovascular: Positive for chest pain (per pt - sent message to PCP) and palpitations (per pt - sent message to PCP). Just with anxiety attacks ; H/o the same PCP aware per him Gastrointestinal: Negative. Neurological: PD: denies noticing by either self or others (prev states shoulders; kind of like a tic; off and on; not new had that for a few years no change ) Psychiatric/Behavioral: Positive for sleep disturbance ( since surgery maybe an hour or two a night sleeping on my couch very uncomfortable, have to sleep in recliner ; 1-2h; napping trying to avoid it ; not restorative). Negative for hallucinations, homicidal ideas and suicidal ideas. The patient is not nervous/anxious ( not too bad ). Mental Status Exam Appearance is appropriate for circumstance. General Health is generally good. Eye Contact is good. Motor Activity is unremarkable. Speech is unremarkable. Affect is blunted. slight Reported Mood is depressed. pretty good Thought Content has depressive cognitions and has suicidal ideations. Suicidal Ideation: Passive SI, no plan/intent Thought Process is goal-directed and is linear. Perception is unremarkable. Attention is alert. Demeanor is appropriate for situation. Insight is fair. Judgement is appropriate. Orientation is fully oriented. Memory is grossly intact and not formally tested. Narrative: Reviewed OARRS report 07/03/2023 which 03/14/23. Total visit time today was 31 minutes. Greater than 50% of this time was spent providing counseling and care coordination around chief complaint, including any additional diagnoses listed above. Shared-decision making was made with consideration for patient specific factors. All patient's questions were answered and patient verbally confirms and understands plan of care. Diagnosis: 1. Schizoaffective disorder, bipolar type ([facility]) - OLANZapine (ZYPREXA) 7.5 mg tablet; Take 1 Tablet by mouth nightly at bedtime Dispense: 30 Tablet; Refill: 1 - FLUoxetine (PROZAC) 20 mg capsule; Take 1 Capsule by mouth once daily Dispense: 30 Capsule; Refill: 1 - buPROPion XL (WELLBUTRIN XL) 150 mg 24 hr tablet; Take 1 Tablet by mouth daily. Dispense: 30 Tablet; Refill: 1 - mirtazapine (REMERON) 45 mg tablet; Take 1 Tablet by mouth nightly at bedtime Dispense: 30 Tablet; Refill: 1 2. Attention deficit hyperactivity disorder (ADHD), predominantly inattentive type - buPROPion XL (WELLBUTRIN XL) 150 mg 24 hr tablet; Take 1 Tablet by mouth daily. Dispense: 30 Tablet; Refill: 1 3. PTSD (post-traumatic stress disorder) - OLANZapine (ZYPREXA) 7.5 mg tablet; Take 1 Tablet by mouth nightly at bedtime Dispense: 30 Tablet; Refill: 1 - FLUoxetine (PROZAC) 20 mg capsule; Take 1 Capsule by mouth once daily Dispense: 30 Capsule; Refill: 1 - buPROPion XL (WELLBUTRIN XL) 150 mg 24 hr tablet; Take 1 Tablet by mouth daily. Dispense: 30 Tablet; Refill: 1 - cloNIDine HCL (CATAPRES) 0.2 mg tablet; Take 1 Tablet by mouth every evening Dispense: 30 Tablet; Refill: 1 - mirtazapine (REMERON) 45 mg tablet; Take 1 Tablet by mouth nightly at bedtime Dispense: 30 Tablet; Refill: 1 Psychotherapy add-on service: Yes, using ACT as the modality; the goal was to decrease the pt's anxiety regarding initiation of IOP and the focus was on trusting the process and validating the efficacy of IOP programs Plan: Increase Zyprexa to 7.5 mg PO qhs for schizoaffective d/o D/c Doxepin (pt ran out and has not noticed any difference when not taking it) Start fluoxetine 20 mg PO qam for anxiety/depression Continue all other meds as prescribed Pt to start IOP through [facility] tomorrow, which will last from 6 to 15 weeks; while in IOP, he will not be making appointments with me and will be seeing psych prescriber through [facility] Once pt is nearing end of IOP, advised him to send me documentation of current meds and schedule appt with me after he completes to avoid tx interruption Further medication changes will depend on pt report of symptoms and tolerability RTC when pt completes IOP Discussed benefits of [facility] pharmacy with patient today and strongly encouraged them to consider transferring prescriptions? yes Explained rationale for medication choices and discussed possible risks, benefits and alternative treatment with client (parent/guardian)? [x] Yes [] No Client/Guardian Response: [x] Understands Information [] Does Not Understand [] Agrees with Medication [] Refuses Medication documented in this encounter [employer] Work Phone: 06-11-2023 Note HNO ID: [id number] Author: Jose C Ventura PA Service: ? Author Type: Physician Disease Education Specialist Type: Progress Notes Filed: 06/11/2023 4:29 PM Note Text: This note was created using [employer]. Subjective Gini Alejandro is a 23 year old adult. HPI 23-year-old adult presents for sore throat, body aches x 3 days. Patient states they work at [employer]. He states that COVID and strep are going around the correction. Patient took a COVID test this morning that was negative. Patient states that sore throat started about 3 days ago. Also reporting body aches, chills. No fevers. Patient does report history of anxiety and heart rate always increases when at the doctor's office. Patient has not been able to eat much, but has been able to drink some fluids. Did report an episode of vomiting today after drinking water. Able to handle secretions/spit. No other complaints. PAST MEDICAL HISTORY Diagnosis Date Anxiety Bipolar 1 disorder (HCC) Depression Insomnia PTSD (post-traumatic stress disorder) No past surgical history on file. ALLERGIES Oxycodone-Acetaminophen, Seroquel [Quetiapine], and Zoloft [Sertraline Hcl] MEDICATIONS buPROPion XL (WELLBUTRIN XL) 150 mg 24 hr tablet Take 1 tablet by mouth every afternoon. cloNIDine HCl (CATAPRES) 0.2 mg tablet Take 0.2 mg by mouth daily at bedtime. doxepin capsule 25 mg TAKE 2 CAPSULES BY MOUTH NIGHTLY AT BEDTIME doxycycline hyclate (VIBRAMYCIN) 100 mg capsule Take 1 capsule by mouth once daily. metFORMIN ER (GLUCOPHAGE XR) 500 mg 24 hr tablet TAKE 2 TABLETS BY MOUTH ONCE DAILY WITH BREAKFAST mirtazapine (REMERON) 45 mg tablet Take 45 mg by mouth daily at bedtime. OLANZapine (ZYPREXA) 5 mg tablet Take 5 mg by mouth daily at bedtime. ondansetron (ZOFRAN) 4 mg tablet Take 4 mg by mouth every 6 hours. BD TUBERCULIN SYRINGE 1 mL 25 gauge x 5/8 USE FOR WEEKLY SUBCUTANEOUS INJECTIONS testosterone cypionate (DEPO-TESTOSTERONE) 100 mg/mL injection Inject 50 mg intramuscularly one time a week. lurasidone (LATUDA) 20 mg tablet Take 1 tablet by mouth once daily. (Patient not taking: Reported on 06/14/2021 ) lamoTRIgine ER (LAMICTAL XR) 50 mg 24 hr tablet Take 1 tablet by mouth once daily. (Patient not taking: Reported on 06/14/2021 ) traZODone (DESYREL) 50 mg tablet 1-3 tabs at night. (Patient not taking: Reported on 06/14/2021 ) omeprazole (PRILOSEC) 40 mg capsule Take 1 capsule by mouth once daily. (Patient not taking: Reported on 06/14/2021 ) FAMILY HISTORY Problem Relation Age of Onset Alcohol/Drug Mother Diabetes Father Depression Father other (hemophillia) Brother Diabetes Maternal Grandfather Hypertension Paternal Grandmother other (B12 def) Paternal Grandmother Hypertension Paternal Grandfather Social History Tobacco Use Smoking status: Every Day Packs/day: 0.50 Years: 4.00 Additional pack years: 0.00 Total pack years: 2.00 Types: Cigarettes Smokeless tobacco: Former Types: Chew Substance Use Topics Alcohol use: Yes Comment: sometimes Drug use: No Review of Systems Constitutional: Positive for chills. Negative for fever. HENT: Positive for sore throat. Negative for congestion. Respiratory: Positive for cough. Negative for shortness of breath. Gastrointestinal: Positive for vomiting. Negative for abdominal pain and diarrhea. Musculoskeletal: Positive for myalgias. Objective BP 137/86 Pulse 110 Temp 36.8 ?C (98.2 ?F) Resp 18 Wt 124.6 kg (274 lb 12.8 oz) LMP 07/09/2020 SpO2 99% Physical Exam Vitals and nursing note reviewed. Constitutional: General: She is not in acute distress. Appearance: Normal appearance. She is not toxic-appearing. HENT: Right Ear: Tympanic membrane and ear canal normal. Left Ear: Tympanic membrane and ear canal normal. Nose: Nose normal. Mouth/Throat: Mouth: Mucous membranes are moist. Pharynx: Uvula midline. Posterior oropharyngeal erythema present. No oropharyngeal exudate. Tonsils: No tonsillar exudate or tonsillar abscesses. 2+ on the right. 2+ on the left. Comments: Handling secretions. Mucous membranes moist. Uvula midline. Tonsillar erythema without exudates. Eyes: Conjunctiva/sclera: Conjunctivae normal. Cardiovascular: Rate and Rhythm: Regular rhythm. Tachycardia present. Comments: Tachycardic initially at 134 per nursing note. On my exam, heart rate 110. Pulmonary: Effort: Pulmonary effort is normal. Breath sounds: Normal breath sounds. Neurological: Mental Status: She is alert. Assessment and Plan ASSESSMENT/PLAN: 1. Sore throat - ICD9: 462, ICD10: J02.9 - suspect viral - Group A strep molecular testing negative - Discussed supportive care treatment with fluids, rest and analgesia. - The patient may also use warm salt water gargles, throat lozenges and/or OTC throat spray as needed. - Go to ER if drooling, symptoms of dehydration, inability to swallow or keep do (more content not included)... [facility] 06-11-2023 Instructions Jose C Ventura PA - 06/11/2023 4:26 PM EST PHARYNGITIS PATIENT INSTRUCTIONS DESCRIPTION: Inflammation and infection of the pharynx that can be caused by a variety of germs. SIGNS AND SYMPTOMS: -Sore throat. -Swallowing difficulty. -Tickle or lump in the throat. -Fever. -Swollen glands in the neck (sometimes). -Throat may be red or covered with a grayish membrane (sometimes). -Generalized aching. CAUSES: Infection from bacteria, viruses or fungi. PREVENTIVE MEASURES: -Avoid close contact with anyone with a sore throat. -Keep immunizations, including diphtheria, up to date. TREATMENT: -Laboratory throat culture and blood count may be done to determine type of infection. -Home care is usually sufficient. -Use gargles to relieve throat pain. Prepare double strength tea, hot or cold, or a salt-water solution (1 teaspoon salt in 8 oz. warm water). Use to gargle as often as you wish. -Use a cool-mist ultrasonic humidifier to increase air moisture. This will relieve the dry, tight feeling in the throat. Clean humidifier daily. -If the glands are large and tender, apply moist, warm soaks at least 4 times a day for 30 to 60 minutes. The compresses will be more effective if they are kept warm. Be careful not to burn the skin. -Replace your toothbrush. It may be harboring germs. -Until infection is gone, don't share washcloths; or food. MEDICATIONS: -For minor discomfort you may use non-prescription drugs such as acetaminophen. Don't give aspirin to a child for any viral illness. -Non-prescription throat lozenges may help ease discomfort. -Antibiotics or antifungal agents to fight bacterial or fungal infections. Be sure to finish entire course of prescribed antibiotics to avoid complications. ACTIVITY: Limited activity is necessary until symptoms disappear. DIET: Extra fluids are necessary. Drink at least 8 glasses of fluid daily, more for high fevers. If swallowing solid food is painful, try a liquid or soft diet for a few days. NOTIFY OFFICE: -The following occur during treatment: Breathing or swallowing difficulty. Fever; severe headache. Thick mucus drainage from the nose. Productive cough that is discolored. Skin rash. Dark urine. Chest pain. documented in this encounter [facility] 06-11-2023 History of Presen t illness Narrative This note was created using [employer]. Subjective Gini Alejandro is a 23 year old adult. HPI 23-year-old adult presents for sore throat, body aches x 3 days. Patient states they work at [employer]. He states that COVID and strep are going around the correction. Patient took a COVID test this morning that was negative. Patient states that sore throat started about 3 days ago. Also reporting body aches, chills. No fevers. Patient does report history of anxiety and heart rate always increases when at the doctor's office. Patient has not been able to eat much, but has been able to drink some fluids. Did report an episode of vomiting today after drinking water. Able to handle secretions/spit. No other complaints. PAST MEDICAL HISTORY Diagnosis Date Anxiety Bipolar 1 disorder (HCC) Depression Insomnia PTSD (post-traumatic stress disorder) No past surgical history on file. ALLERGIES Oxycodone-Acetaminophen, Seroquel [Quetiapine], and Zoloft [Sertraline Hcl] MEDICATIONS buPROPion XL (WELLBUTRIN XL) 150 mg 24 hr tablet Take 1 tablet by mouth every afternoon. cloNIDine HCl (CATAPRES) 0.2 mg tablet Take 0.2 mg by mouth daily at bedtime. doxepin capsule 25 mg TAKE 2 CAPSULES BY MOUTH NIGHTLY AT BEDTIME doxycycline hyclate (VIBRAMYCIN) 100 mg capsule Take 1 capsule by mouth once daily. metFORMIN ER (GLUCOPHAGE XR) 500 mg 24 hr tablet TAKE 2 TABLETS BY MOUTH ONCE DAILY WITH BREAKFAST mirtazapine (REMERON) 45 mg tablet Take 45 mg by mouth daily at bedtime. OLANZapine (ZYPREXA) 5 mg tablet Take 5 mg by mouth daily at bedtime. ondansetron (ZOFRAN) 4 mg tablet Take 4 mg by mouth every 6 hours. BD TUBERCULIN SYRINGE 1 mL 25 gauge x 5/8 USE FOR WEEKLY SUBCUTANEOUS INJECTIONS testosterone cypionate (DEPO-TESTOSTERONE) 100 mg/mL injection Inject 50 mg intramuscularly one time a week. lurasidone (LATUDA) 20 mg tablet Take 1 tablet by mouth once daily. (Patient not taking: Reported on 06/14/2021 ) lamoTRIgine ER (LAMICTAL XR) 50 mg 24 hr tablet Take 1 tablet by mouth once daily. (Patient not taking: Reported on 06/14/2021 ) traZODone (DESYREL) 50 mg tablet 1-3 tabs at night. (Patient not taking: Reported on 06/14/2021 ) omeprazole (PRILOSEC) 40 mg capsule Take 1 capsule by mouth once daily. (Patient not taking: Reported on 06/14/2021 ) FAMILY HISTORY Problem Relation Age of Onset Alcohol/Drug Mother Diabetes Father Depression Father other (hemophillia) Brother Diabetes Maternal Grandfather Hypertension Paternal Grandmother other (B12 def) Paternal Grandmother Hypertension Paternal Grandfather Social History Tobacco Use Smoking status: Every Day Packs/day: 0.50 Years: 4.00 Additional pack years: 0.00 Total pack years: 2.00 Types: Cigarettes Smokeless tobacco: Former Types: Chew Substance Use Topics Alcohol use: Yes Comment: sometimes Drug use: No Review of Systems Constitutional: Positive for chills. Negative for fever. HENT: Positive for sore throat. Negative for congestion. Respiratory: Positive for cough. Negative for shortness of breath. Gastrointestinal: Positive for vomiting. Negative for abdominal pain and diarrhea. Musculoskeletal: Positive for myalgias. Objective BP 137/86 Pulse 110 Temp 36.8 C (98.2 F) Resp 18 Wt 124.6 kg (274 lb 12.8 oz) LMP 07/09/2020 SpO2 99% Physical Exam Vitals and nursing note reviewed. Constitutional: General: She is not in acute distress. Appearance: Normal appearance. She is not toxic-appearing. HENT: Right Ear: Tympanic membrane and ear canal normal. Left Ear: Tympanic membrane and ear canal normal. Nose: Nose normal. Mouth/Throat: Mouth: Mucous membranes are moist. Pharynx: Uvula midline. Posterior oropharyngeal erythema present. No oropharyngeal exudate. Tonsils: No tonsillar exudate or tonsillar abscesses. 2+ on the right. 2+ on the left. Comments: Handling secretions. Mucous membranes moist. Uvula midline. Tonsillar erythema without exudates. Eyes: Conjunctiva/sclera: Conjunctivae normal. Cardiovascular: Rate and Rhythm: Regular rhythm. Tachycardia present. Comments: Tachycardic initially at 134 per nursing note. On my exam, heart rate 110. Pulmonary: Effort: Pulmonary effort is normal. Breath sounds: Normal breath sounds. Neurological: Mental Status: She is alert. Assessment and Plan ASSESSMENT/PLAN: 1. Sore throat - ICD9: 462, ICD10: J02.9 - suspect viral - Group A strep molecular testing negative - Discussed supportive care treatment with fluids, rest and analgesia. - The patient may also use warm salt water gargles, throat lozenges and/or OTC throat spray as needed. - Go to ER if drooling, symptoms of dehydration, inability to swallow or keep down fluids - STREP A MOLECULAR (POC) Diagnosis and treatment plan were discussed and questions were answered to the patient's satisfaction. Pt acknowledged understanding of concepts and follow up plan. Specific signs and symptoms that would indicate the need for higher level of care were discussed in detail warranting prompt ER evaluation. MAGNUS Kent documented in this encounter [facility] 05-17-2023 History of Presen t illness Narrative Associated Problem(s): Gender dysphoria Images from the original note were not included. Gender Affirming Care - Follow-Up Visit: Name Kendall Gender Identity transgender male Pronouns he 05/17/2023 1:39 PM 12/25/2022 12:00 AM [facility] Prescribed testosterone cypionate Inject 0.55mL into the muscle every 7 days (200 mg/mL oil) Inject 0.55mL into the muscle every 7 days (200 mg/mL oil) Medication marked as long-term Side effects? no Adherence? always Day in dosing cycle Last injection was 05/03/2023, notes med Energy - Mood stable Voice Changes changed Facial Hair present Body Hair present Menses Not much Last Testosterone 09/19/2021: 476 06/02/2022: 480 09/28/2022: 723 Last H&H 09/19/2021: 15.0 06/02/2022: 15.5 09/28/2022: 15.6 09/19/2021: 45.2 06/02/2022: 46.8 09/28/2022: 47.0 Assessment: well managed at this time and stable / unchanged Plan: Continue same management plan Continue meds as previously prescribed Images from the original note were not included. Chief Complaint / HPI: Chief Complaint Patient presents with [facility] med refill HPI Tele-Health Visit Statement [email or web address] The patient's identity was verified and they have verbally stated that they are currently in the state [facility]. The risks, benefits, and alternatives of a realtime synchronous audiovisual consultation were discussed with the patient and/or their guardian and they have given their verbal consent to this tele-health visit. This visit took place via tele-health telephone visit Additional persons on the call: no one Plant Engineering Supervisor used/present: No Presents virtually (Telephone only as Zoom was not working) for [facility] f/u. He was last seen in office 08/2022. He notes that he does not have reliable transportation, has to depend on his to come to appts. He also notes that he lives ~ 2 hours away, that they do not have a [facility] in his area. He is unsure if he could get his labs drawn before his next appt. He also contends that he will have to call later to schedule his f/u appt because I would have to get a day off and my schedule changes . He is out of his med (Testosterone) X 2 weeks. He had been having a lot of bleeding after his IM injections , and so, the previous provider advised him to switch to SC needle w/ same medication, he was concerned if that's a problem since the medication is still written for IM. Otherwise he notes to be doing good, w/ no acute medical concerns/issues/needs. Problems Assessed, Plan, Orders & Medical Decision Making 1. Gender dysphoria (Primary) Overview: On Testosterone since 05/2020 Mastectomy 10/16/22 12/25/22 Patient had top surgery with Dr. Toribio 10/16/22, healing well. Has had follow-up with her already and patient is pleased with results. Assessment & Plan: Gender Affirming Care - Follow-Up Visit: Name Kendall Gender Identity transgender male Pronouns bk 05/17/2023 1:39 PM 12/25/2022 12:00 AM [facility] Prescribed testosterone cypionate Inject 0.55mL into the muscle every 7 days (200 mg/mL oil) Inject 0.55mL into the muscle every 7 days (200 mg/mL oil) Medication marked as long-term Side effects? no Adherence? always Day in dosing cycle Last injection was 05/03/2023, notes med Energy - Mood stable Voice Changes changed Facial Hair present Body Hair present Menses Not much Last Testosterone 09/19/2021: 476 06/02/2022: 480 09/28/2022: 723 Last H&H 09/19/2021: 15.0 06/02/2022: 15.5 09/28/2022: 15.6 /09/19/2021: 45.2 06/02/2022: 46.8 09/28/2022: 47.0 Assessment: well managed at this time and stable / unchanged Plan: Continue same management plan Continue meds as previously prescribed Orders: - testosterone cypionate (DEPO-TESTOSTERONE) 200 mg/mL injection; Inject 0.55mL into the muscle every 7 days, Disp-10 mL, R-2 e-Prescribing, Long-term Dispense: 10 mL; Refill: 2 Weight Management and Counseling: Plan: counseled patient on BMI and agreed upon a follow up plan for patient's weight Tobacco Use and Intervention: History Smoking Status Every Day Packs/day: 1.00 Years: 0.00 Types: Cigarettes Smokeless Tobacco Never Ready to quit: Not Answered Counseling given: Not Answered Tobacco comments: 10/24: none in 2mos Plan: Tobacco Intervention: provided smoking cessation counseling No future appointments. ROS & Physical Exam Review of Systems Constitutional: Negative for fever. HENT: Negative for congestion. Respiratory: Negative for cough and wheezing. Gastrointestinal: Negative for blood in stool, constipation and diarrhea. Neurological: Negative for seizures. Physical Exam I spent the following time reviewing the patient's chart, seeing the patient, and documenting in the record on this day of the visit: Established patient: 20 - 29 minutes Images from the original note were not included. Rooming Note: Kendall presents to [facility] today for Primary Care Medical Home ([facility] med refill ) Since Last Visit? Been to an Urgent Care, ER or Hospital? no Seen any other providers / specialists? Yes- Therapist and Psy Received any vaccines? no Had any tests, like a Xray, mammogram or colonoscopy? no Vaccines Recommended Today: Health Maintenance Due Topic Date Due Imm-Hepatitis B (1 of 3 - 3-dose series) Never done [id number] (1) Never done Imm-Varicella (1 of 2 - 2-dose childhood series) Never done Imm-Pneumococcal (1 - PCV) Never done Imm-Influenza (1) 03/02/2023 SBIRT 05/17/2023 10:52 AM Little interest or pleasure in doing things Not at all Feeling down, depressed or hopeless [include irritable if under 18] Not at all PHQ2 Score 0 Little interest or pleasure in doing things Not at all Feeling down, depressed or hopeless [include irritable if under 18] Not at all Trouble falling or staying asleep, or sleeping too much Not at all Feeling tired or having little energy Not at all Poor appetite or overeating Not at all Feeling bad about yourself - or that you are a failure or have let yourself or your family down Not at all Trouble concentrating on things like school work, reading or watching TV? Not at all Moving or speaking so slowly that other people could have noticed? Or the opposite - being so fidgety or restless that you have been moving around a lot more than usual Not at all Thoughts you would be better off or of hurting yourself in some way Not at all If you checked off any problems, how difficult have these problems made it for you to do your work, take care of things at home, or get along with other people? Not difficult at all PHQ-9 Total Score (Auto Calculated) 0 Depression Severity: None-minimal AUDIT Total Score (Auto Calculated) 2 at 07/25/2022 1:59 PM PHQ-9 Total Score (Auto Calculated) 0 at 05/17/2023 10:52 AM KULDEEP-7 11/08/2020 8:00 AM Feeling nervous, anxious, or on edge: Nearly every day Not being able to stop or control worrying: Several days Worrying too much about different things: Nearly every day Trouble relaxing: More than half the days Being so restless that it is hard to sit still: Nearly every day Becoming easily annoyed or irritable: More than half the days (getting better) Feeling afraid, as if something awful might happen: More than half the days Kuldeep-7 Total (!) 16 Anxiety Severity: Severe Anxiety Health Maintenance Due Topic Date Due Hepatitis C Screening Never done Imm-Hepatitis B (1 of 3 - 3-dose series) Never done [id number] (1) Never done Imm-Varicella (1 of 2 - 2-dose childhood series) Never done Imm-Pneumococcal (1 - PCV) Never done Chlamydia Screening Never done Gonorrhea Screening Never done HIV Screening Never done Annual Wellness Visit 05/18/2021 Imm-Influenza (1) 03/02/2023 Goals as of 05/17/2023 at 10:52 AM Diploma (pt-stated) Kendall will work towards his diploma over the next 12 months. Guitar (pt-stated) Patient will play his guitar at least 1 hour a week for the next 3 months. 10/20- Pt goal is on hold as the pt's guitar is broken. BB. Motivation (pt-stated) Patient will clean the house on his day off once every 2 weeks for the next 6 months. 10/20- Pt states having good progress on the goal and keeping things clean leading up to his top surgery on this past Sunday after which pt is focusing on recovery for time being. BB. PHQ-9 Total Score (Auto Calculated) < 15 Patient will lower his PHQ-9 score to 15 or lower within in the next 6 months. Patient Active Problem List Diagnosis PTSD (post-traumatic stress disorder) Nicotine use disorder Bipolar 2 disorder ([facility]) Gender dysphoria Attention deficit hyperactivity disorder (ADHD), predominantly inattentive type Pelvic pain History of suicide attempt S/P laparoscopic hysterectomy Obesity, Class III, BMI 40-49.9 (morbid obesity) ([facility]) Acne vulgaris Weight gain due to medication Abnormal movements Prediabetes Smoking documented in this encounter [employer] Work Phone: 04-20-2023 History of Presen t illness Narrative Tele-Health Visit Statement [employer] The patient's identity was verified and they have verbally stated that they are currently in the [facility]. The risks, benefits, and alternatives of a realtime synchronous audiovisual consultation were discussed with the patient and/or their guardian and they have given their verbal consent to this tele-health visit. 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: Not Applicable Chief Complaint Patient presents with Bipolar Disorder Follow Up Medication Management Objective Kendall was last seen 2 1/2 weeks ago and was set for a f/u appt in 6 weeks. He states that the other day I woke up and all my meds stopped working. He reports that he hears constant AH, stating that it sounds like a hundred voices at once and he reports that he hasn't slept in 4 days and has been having a panic attack all day, every day for 4 days for some reason. He reports that he has never felt like this before, even when I'm off my meds I feel better than what I feel like now. He reports that he took a ten minute nap this morning and that's the most he has slept in 4 days. He reports that he's extremely tired, but he has no appetite, eating only twice in the last 4 days. Sunday was the anniversary of his mother's , and this started with AH of her voice telling him to commit suicide, which he says he has had happen before. Now it's just a bunch of voices all talking at the same time. There is no indication that he's attending to internal stimuli during this appt. He reports that this happened out of nowhere. He felt like he was becoming manic, but then noticed that other than not sleeping, he has not had any nenita behavior. He has had passive SI but nothing specific in terms of a plan and no intent. Discussed the [employer] suicide hotline which he can access by calling or texting, and also advised that we have crisis counselors he can call to talk to M-F 8-5. Kelly made me switch to a new therapist bc she's booked out for months - he sees this new therapist 05/08. 04/03/23 f/u: Kendall reports that he's doing all right. He got recently, and it went great. He reports that he's been pretty snappy and his anxiety has been spiking recently. No issues with physical health; he was told that he did not have heart attack, stating that it was probably a severe panic attack because my heart looked fine. He is still having trouble staying asleep, but now when he wakes up he can fall asleep again easily. He still has not seen Kelly in a couple months, but he is scheduled to see her . Has not missed any work due to anxiety or any other mental health reasons since we last talked. He notes that his anxiety has gotten worse in the last 6 months or so, he thinks potentially when his Wellbutrin dose was increased. He reports almost daily panic attacks where he feels like he's dying, almost always when talking to people (his , HR, a friend) that last for 10 to 15 minutes. He did not feel that the gabapentin helped at all, and after his top surgery he was prescribed 300 mg PO qid and it did not improve his anxiety at all. He reports an episode of nenita right before he got that lasted 3 days ( it usually lasts me a while ); during this episode, he was very mean, but it felt like nenita, like a mean version of it. No SI, no psychosis. 04/03/23 Plan: Reduce Wellbutrin XL to 150 mg PO qd for depression/ADHD (pt continues to take this at night, stating that it causes him to feel tired); reducing dose to see if that helps reduce anxiety Continue Clonidine 0.2 mg PO qhs for PTSD Increase mirtazapine to 45 mg PO qhs for insomnia/panic disorder/depression Continue Abilify 15 mg PO qd for possible BPAD vs possible Schizoaffective D/o Continue Doxepin 50 mg PO qhs for sleep D/c gabapentin d/t inefficacy Continue seeing Kelly for therapy Further medication changes will depend on pt report of symptoms and tolerability RTC in about 6 weeks (pt prefers to call and schedule appt around his work schedule); advised him that I'm sending 2 months' worth of meds so he is to schedule f/u before that runs out HPI Kendall Alejandro is a 23 year old Adult here today for follow-up med management visit. Symptoms include sadness ( worse since I've been stuck at home; go back next Sunday; before that was there, normal for me ), decreased interest ( not it; kind of been the same throughout ), hopelessness, panic ( handful, 4-5; 10m; out of nowhere talk to random somebody that I know ), difficulty concentrating ( yeah ), increased fatigue ( worse last couple weeks ) and sleep disturbance ( since surgery maybe an hour or two a night sleeping on my couch very uncomfortable, have to sleep in recliner ; 1-2h; napping trying to avoid it ; not restorative). Patient denies or there is no evidence of low self-esteem, guilt, nervousness/anxiousness ( not too bad ), inflated self-esteem, decreased need for sleep, euphoric mood, hallucinations, irritability, appetite change, suicidal ideas or homicidal ideas. Weight change: h/o disordered eating does weigh self.: 50h/w. Past treatments tried include: Psychotherapy: Kelly at [facility] see her next week . Compliance with prior treatments has been good. 11/08/2020 8:00 AM Kuldeep-7 Total (!) 16 HIV Care No results found for: CD4, COPIESML, HELPSUPP If client is HIV+, provider reviewed HIV care, Viral Load, and CD4: Not applicable AIMS 11/22/2020 9:00 AM 1. Muscles of facial expression none 2. Lips and perioral area none 3. Jaw none 4. Tongue none 5. Upper (arms, wrists, hands, fingers) none 6. Lower (legs, knees, ankles, toes) none 7. Neck shoulders, hips none 8. Severity of abnormal movements none 9. Incapacitation due to abnoral movements none, normal 10. Patient's awareness of abnormal movements no awareness 11. Current problems with teeth and/or dentures no 12. Does patient usually wear dentures? no Total (items 1-7) 0 Recent Labs: T4FREE (ng/dL) Date Value 05/31/2020 1.3 TSH (uU/mL) Date Value 05/31/2020 4.3 WBC (x10E3/uL) Date Value 09/28/2022 8.1 06/02/2022 8.2 RBC (x10E6/uL) Date Value 09/28/2022 5.67 (H) 06/02/2022 5.54 (H) HGBA1C Date Value 06/02/2022 5.7 % (H) 05/31/2020 5.5 %Hb HGB (g/dL) Date Value 09/28/2022 15.6 06/02/2022 15.5 HCT (%) Date Value 09/28/2022 47.0 (H) 06/02/2022 46.8 (H) CHOL (mg/dL) Date Value 09/28/2022 127 06/02/2022 136 TRIGLYC (mg/dL) Date Value 09/28/2022 77 06/02/2022 115 HDL (mg/dL) Date Value 09/28/2022 42 06/02/2022 44 LDL (mg/dL) Date Value 09/28/2022 70 06/02/2022 71 VLDL (mg/dL) Date Value 09/28/2022 15 06/02/2022 21 GLUCOSE (mg/dL) Date Value 09/28/2022 71 06/02/2022 74 BUN (mg/dL) Date Value 09/28/2022 9 06/02/2022 10 CREATININE (mg/dL) Date Value 09/28/2022 0.98 06/02/2022 0.81 EGFR (mL/min/1.73) Date Value 09/28/2022 83 06/02/2022 105 05/31/2020 111 05/31/2020 128 AST (IU/L) Date Value 09/28/2022 22 06/02/2022 17 ALT (IU/L) Date Value 09/28/2022 24 06/02/2022 25 BILIRUBIN (mg/dL) Date Value 09/28/2022 0.5 06/02/2022 0.3 No results found for: [id number], [id number], [id number], DRUGID, ADDTOXSERUM, ADDTOXURINE, [id number] Review of Systems Constitutional: Negative for appetite change. Cardiovascular: Positive for chest pain (per pt - sent message to PCP) and palpitations (per pt - sent message to PCP). Just with anxiety attacks ; H/o the same PCP aware per him Gastrointestinal: Negative. Neurological: PD: denies noticing by either self or others (prev states shoulders; kind of like a tic; off and on; not new had that for a few years no change ) Psychiatric/Behavioral: Positive for sleep disturbance ( since surgery maybe an hour or two a night sleeping on my couch very uncomfortable, have to sleep in recliner ; 1-2h; napping trying to avoid it ; not restorative). Negative for hallucinations, homicidal ideas and suicidal ideas. The patient is not nervous/anxious ( not too bad ). Mental Status Exam Appearance is appropriate for circumstance. General Health is generally good. Eye Contact is good. Motor Activity is unremarkable. Speech is unremarkable. Affect is blunted. slight Reported Mood is depressed. pretty good Thought Content has depressive cognitions and has suicidal ideations. Suicidal Ideation: Passive SI, no plan/intent Thought Process is goal-directed and is linear. Perception is unremarkable. Attention is alert. Demeanor is appropriate for situation. Insight is fair. Judgement is appropriate. Orientation is fully oriented. Memory is grossly intact and not formally tested. Narrative: Reviewed [facility]RS report 04/20/2023 which reveals gabapentin 100 mg #315 last filled 03/14/23 and brings up no concerns or discrepancies. Total visit time today was 23 minutes. Greater than 50% of this time was spent providing counseling and care coordination around chief complaint, including any additional diagnoses listed above. Shared-decision making was made with consideration for patient specific factors. All patient's questions were answered and patient verbally confirms and understands plan of care. Diagnosis: 1. R/o Bipolar 2 disorder ([facility]-CMS) - OLANZapine (ZYPREXA) 10 mg tablet; Take 1 Tablet by mouth nightly at bedtime Dispense: 30 Tablet; Refill: 1 2. R/o Schizoaffective disorder, bipolar type (HCC-CMS) - OLANZapine (ZYPREXA) 10 mg tablet; Take 1 Tablet by mouth nightly at bedtime Dispense: 30 Tablet; Refill: 1 3. Attention deficit hyperactivity disorder (ADHD), predominantly inattentive type 4. PTSD (post-traumatic stress disorder) Psychotherapy add-on service: No Plan: D/c Abilify 15 mg d/t poor efficacy Start olanzapine 10 mg PO qhs; normally I would cross-taper, but d/t acuity of symptoms and pt's lack of sleep, I am switching directly Advised pt I would be happy to write a letter to excuse him from work today as well as Sunday/Sunday if needed Continue all other meds as currently prescribed; will adjust and/or d/c them as needed once stabilized on olanzapine Pt to see new therapist as of 05/08 that he can see weekly Further medication changes will depend on pt report of symptoms and tolerability RTC in 4 days Discussed benefits of [facility] pharmacy with patient today and strongly encouraged them to consider transferring prescriptions? no, patient does not live near an [facility] pharmacy and needs to start new med alex Explained rationale for medication choices and discussed possible risks, benefits and alternative treatment with client (parent/guardian)? [x] Yes [] No Client/Guardian Response: [x] Understands Information [] Does Not Understand [] Agrees with Medication [] Refuses Medication documented in this encounter [employer] Phone: 02-15-2023 Hospital Discharg e instructions Patient Education 02/14/2023 22:55:05 Chest Pain, Noncardiac Noncardiac Chest Pain Based on your visit today, the healthcare provider doesn t know what is causing your chest pain. In most cases, people who come to the emergency department with chest pain don t have a problem with their heart. Instead, the pain is caused by other conditions. It's important for the healthcare team to be sure you are not having a life threatening cause for chest pain such as a heart attack, blood clot in the lungs, collapsed lung, ruptured esophagus, or tearing of the aorta. Once these major causes have been ruled out, you may have further evaluation for non-heart causes of chest pain. These may be problems with the lungs, muscles, bones, digestive tract, nerves, or mental health. Lung problems Inflammation around the lungs (pleurisy) Collapsed lung (pneumothorax) Fluid around the lungs (pleural effusion) Lung cancer (a rare cause of chest pain) Muscle or bone problems Inflamed cartilage between the ribs (costochondritis) Fibromyalgia Rheumatoid arthritis Chest wall strain Digestive system problems Reflux Stomach ulcer Spasms of the esophagus Gall stones Gallbladder inflammation Mental health conditions Panic or anxiety attacks Emotional distress Your condition doesn t seem serious and your pain doesn t appear to be coming from your heart. But sometimes the signs of a serious problem take more time to appear. Watch for the warning signs listed below. Home care Follow these guidelines when caring for yourself at home: Rest today and avoid strenuous activity. Take any prescribed medicine as directed. Follow-up care Follow up with your healthcare provider, or as advised, if you don t start to feel better within 24 hours. When to seek medical advice Call your healthcare provider right away if any of these occur: A change in the type of pain. Call if it feels different, becomes more serious, lasts longer, or begins to spread into your shoulder, arm, neck, jaw, or back. Shortness of breath You feel more pain when you breathe Cough with dark-colored mucus or blood Weakness, dizziness, or fainting Fever of 100.4 F (38 C) or higher, or as directed by your healthcare provider Swelling, pain, or redness in one leg [id number] [employer]. [address] [place] [address]. All rights reserved. This information is not intended as a substitute for professional medical care. Always follow your healthcare professional's instructions. 02/14/2023 22:54:57 Radiology-Incidental Lung Nodule Finding (06/2018)(CUSTOM) Incidental Lung Nodule Radiologic Finding Information Sheet An Incidental lung nodule is defined as a spot on the lung that is three centimeters in diameter or less. Lung nodules are quite common and are found in chest x-rays and CT scans. It is incidental because it is unrelated to the reason your caregiver prescribed the exam. With newer imaging tests and technologies, it is becoming more common to find small masses and tissue when looking for other things. These findings can sometimes be related to undiagnosed illness. Although many are not a cause for concern, it is always a good idea to talk to your caregiver about what was found. Types of Findings There are many types of masses/nodules and tissue abnormalities that can be detected during an imaging test. These types may include: Lesions - changes in tissue due to infections or trauma Cysts a mass filled with fluid, crystals, or some other substance Tumors non-cancerous solid mass Further Diagnosis Generally, very small tissue changes or masses will not require follow-up testing. Depending on the size and appearance of the finding, your caregiver may recommend additional testing. Additional testing may also be recommended if you have certain risk factors or medical conditions that increase your risk of related problems. Testing Tests and exams may be a one-time screening or periodic follow-up. Periodic follow-up will help your caregiver determine whether the abnormality is growing or becoming a concern. Tests may include: Physical Examination Imaging tests, such as CT scan MRI and/or PET scan Bronchoscopy Biopsy Treatment The treatment of lung nodules varies widely depending upon the cause, whether they are related to infections, inflammation, cancer, or other conditions. Most benign lung nodules, especially those that are present and have not changed over a period of a few years, can be left alone. Treatment may include: Watchful waiting with periodic exams and testing Treatments to reduce the size of the abnormality Surgical or biopsy removal of the abnormality Additional treatments to address any underlying conditions Home Care Instructions See your caregiver for any follow-up examinations and testing as directed. Keep calm, your caregiver will let you know if this is a routine follow-up, or if there is cause for concern. Remember, early detection can be very beneficial to you. Follow your caregiver s aftercare instructions related to the reason for you visit. Follow Up Care 02/14/2023 20:01:22 With:Follow up with primary care provider Address:Unknown When:2-4 days [facility] 02-14-2023 Note Discharge Instructions Thank you for allowing [facility] to assist you with your healthcare needs. The following is important discharge information regarding your hospital visit. Diagnosis from Today's Visit Chest pain What to Do Next Instructions from Your Care Team Discharge Return to Work, School, or Sports (Return to Work, School, or Sports) - Ordered -- 02/16/23, May return to: work, 02/14/23 22:54:00 EDT Post Acute Orders No qualifying data available. You Need to Schedule the Following Appointments Follow Up with Follow up with primary care provider When Within 2-4 days Allergies Percocet Seroquel Zoloft Medications Please ask your primary doctor or pharmacist before taking any other medication not listed, including over the counter drugs, herbal medications, vitamins and or supplements as they may interact with your home medications. What How Much When Instructions Last Dose New nabumetone (nabumetone 500 mg oral tablet) 2 tab(s) by mouth Two (2) times a day Duration: 7 Days Printed Prescription Unchanged ARIPiprazole (ARIPiprazole 15 mg oral tablet) 1 tab(s) by mouth Once a day Unchanged buPROPion (buPROPion 300 mg/ 24 hours (XL) oral tablet, extended release) 1 tab(s) by mouth Once a day Unchanged cloNIDine (cloNIDine 0.2 mg oral tablet) 1 tab(s) by mouth Two (2) times a day Unchanged metFORMIN (MetFORMIN (Eqv-Glucophage XR) 500 mg oral tablet, EXTENDED RELEASE) 1 tab(s) by mouth Once a day Unchanged mirtazapine (mirtazapine 30 mg oral tablet) 1 tab(s) by mouth Daily at bedtime Unchanged testosterone (Testosterone Cypionate 200 mg/ mL intramuscular solution) 2 Milliliter Intramuscular Every other week Please take this list to your next doctor s visit. Bring all medications you take, including over the counter medications, herbals and other supplements with you to your doctor s visit. Patients and families are reminded to discard old lists and to update any records with all medication providers or retail pharmacies. Medication Leaflets nabumetone (na BUE me tone) Relafen What is the most important information I should know about nabumetone? Nabumetone can increase your risk of fatal heart attack or stroke. Do not use this medicine just before or after heart bypass surgery (coronary artery bypass graft, or CABG). Nabumetone may also cause stomach or intestinal bleeding, which can be fatal. What is nabumetone? Nabumetone is a nonsteroidal anti-inflammatory drug (NSAID). Nabumetone works by reducing hormones that cause inflammation and pain in the body. Nabumetone is used to relieve the symptoms of rheumatoid arthritis or osteoarthritis. Nabumetone may also be used for purposes not listed in this medication guide. What should I discuss with my healthcare provider before taking nabumetone? Nabumetone can increase your risk of fatal heart attack or stroke, even if you don't have any risk factors. Do not use this medicine just before or after heart bypass surgery (coronary artery bypass graft, or CABG). Nabumetone may also cause stomach or intestinal bleeding, which can be fatal. These conditions can occur without warning while you are using nabumetone, especially in older adults. You should not use nabumetone if you are allergic to it, or if you have ever had an asthma attack or severe allergic reaction after taking aspirin or an NSAID. Tell your doctor if you have ever had: heart disease, high blood pressure, high cholesterol, diabetes, or if you smoke; a heart attack, stroke, or blood clot; stomach ulcers or bleeding; asthma; liver or kidney disease; or fluid retention. If you are , you should not take nabumetone unless your doctor tells you to. Taking an NSAID during the last 20 weeks of can cause serious heart or kidney problems in the unborn baby and possible complications with your . You should not breastfeed while using this medicine. Nabumetone is not approved for use by anyone younger than 18 years old. How should I take nabumetone? Follow all directions on your prescription label and read all medication guides. Your doctor may occasionally change your dose. Use the lowest dose that is effective in treating your condition. You may take nabumetone with or without food. If you use this medicine long-term, you may need frequent medical tests. Store at room temperature away from moisture and heat. Keep the bottle tightly closed when not in use. What happens if I miss a dose? Take the medicine as soon as you can, but skip the missed dose if it is almost time for your next dose. Do not take two doses at one time. What happens if I overdose? Seek emergency medical attention or call the Poison Help line at . What should I avoid while taking nabumetone? Avoid drinking alcohol. It may increase your risk of stomach bleeding. Ask a doctor or pharmacist before using other medicines for pain, fever, swelling, or cold/flu symptoms. They may contain ingredients similar to nabumetone (such as aspirin, ibuprofen, ketoprofen, or naproxen). Nabumetone could make you sunburn more easily. Avoid sunlight or tanning beds. Wear protective clothing and use sunscreen (SPF 30 or higher) when you are outdoors. What are the possible side effects of nabumetone? Get emergency medical help if you have signs of an allergic reaction (hives, sneezing, runny or stuffy nose, wheezing, difficult breathing, swelling in your face or throat) or a severe skin reaction (fever, sore throat, burning eyes, skin pain, red or purple skin rash with blistering and peeling). Get emergency medical help if you have signs of a heart attack or stroke: chest pain spreading to your jaw or shoulder, sudden numbness or weakness on one side of the body, slurred speech, feeling short of breath. Stop using nabumetone and call your doctor at once if you have: shortness of breath (even with mild exertion); swelling or rapid weight gain; the first sign of any skin rash, no matter how mild; signs of stomach bleeding--bloody or tarry stools, coughing up blood or vomit that looks like coffee grounds; liver problems--nausea, upper stomach pain, itching, tired feeling, flu-like symptoms, loss of appetite, dark urine, elizabeth-colored stools, jaundice (yellowing of the skin or eyes); kidney problems--little or no urinating, painful or difficult urination, swelling in your feet or ankles, feeling tired or short of breath; or low red blood cells (anemia)--pale skin, unusual tiredness, feeling light-headed or short of breath, cold hands and feet. Common side effects may include: stomach pain, indigestion, nausea; diarrhea, constipation, gas; swelling in your hands and feet; headache, dizziness; itching, skin rash; or ringing in your ears. This is not a complete list of side effects and others may occur. Call your doctor for medical advice about side effects. You may report side effects to FDA at 1-107-AVO-2392. What other drugs will affect nabumetone? Ask your doctor before using nabumetone if you take an antidepressant. Taking certain antidepressants with an NSAID may cause you to bruise or bleed easily. Tell your doctor about all your other medicines, especially: lithium; methotrexate; a blood thinner (warfarin, Coumadin, Jantoven); heart or blood pressure medication, including a diuretic or 'water pill'; or steroid medicine (such as prednisone). This list is not complete. Other drugs may affect nabumetone, including prescription and [id number] medicines, vitamins, and herbal products. Not all possible drug interactions are listed here. Where can I get more information? Your pharmacist can provide more information about nabumetone. Remember, keep this and all other medicines out of the reach of children, never share your medicines with others, and use this medication only for the indication prescribed. Every effort has been made to ensure that the information provided by [employer]. [employer]') is accurate, up-to-date, and complete, but no guarantee is made to that effect. Drug information contained herein may be time sensitive. [employer] information has been compiled for use by healthcare practitioners and consumers in the [place] and therefore [employer] does not warrant that uses outside of the [place] are appropriate, unless specifically indicated otherwise. [employer]'s drug information does not endorse drugs, diagnose patients or recommend therapy. [employer] drug information is an informational resource designed to assist licensed healthcare practitioners in caring for their patients and/or to serve consumers viewing this service as a supplement to, and not a substitute for, the expertise, skill, knowledge and judgment of healthcare practitioners. The absence of a warning for a given drug or drug combination in no way should be construed to indicate that the drug or drug combination is safe, effective or appropriate for any given patient. [facility] does not assume any responsibility for any aspect of healthcare administered with the aid of information [facility] provides. The information contained herein is not intended to cover all possible uses, directions, precautions, warnings, drug interactions, allergic reactions, or adverse effects. If you have questions about the drugs you are taking, check with your doctor, nurse or pharmacist. Copyright 5966-0197 Megan [employer]ORIA. Version: 13.02. Revision Date: 07/21/2020. Education Materials Noncardiac Chest Pain Based on your visit today, the healthcare provider doesn t know what is causing your chest pain. In most cases, people who come to the emergency department with chest pain don t have a problem with their heart. Instead, the pain is caused by other conditions. It's important for the healthcare team to be sure you are not having a life threatening cause for chest pain such as a heart attack, blood clot in the lungs, collapsed lung, ruptured esophagus, or tearing of the aorta. Once these major causes have been ruled out, you may have further evaluation for non-heart causes of chest pain. These may be problems with the lungs, muscles, bones, digestive tract, nerves, or mental health. Lung problems Inflammation around the lungs (pleurisy) Collapsed lung (pneumothorax) Fluid around the lungs (pleural effusion) Lung cancer (a rare cause of chest pain) Muscle or bone problems Inflamed cartilage between the ribs (costochondritis) Fibromyalgia Rheumatoid arthritis Chest wall strain Digestive system problems Reflux Stomach ulcer Spasms of the esophagus Gall stones Gallbladder inflammation Mental health conditions Panic or anxiety attacks Emotional distress Your condition doesn t seem serious and your pain doesn t appear to be coming from your heart. But sometimes the signs of a serious problem take more time to appear. Watch for the warning signs listed below. Home care Follow these guidelines when caring for yourself at home: Rest today and avoid strenuous activity. Take any prescribed medicine as directed. Follow-up care Follow up with your healthcare provider, or as advised, if you don t start to feel better within 24 hours. When to seek medical advice Call your healthcare provider right away if any of these occur: A change in the type of pain. Call if it feels different, becomes more serious, lasts longer, or begins to spread into your shoulder, arm, neck, jaw, or back. Shortness of breath You feel more pain when you breathe Cough with dark-colored mucus or blood Weakness, dizziness, or fainting Fever of 100.4 F (38 C) or higher, or as directed by your healthcare provider Swelling, pain, or redness in one leg [id number] [employer] [address] [place] [address]. All rights reserved. This information is not intended as a substitute for professional medical care. Always follow your healthcare professional's instructions. Incidental Lung Nodule Radiologic Finding Information Sheet An Incidental lung nodule is defined as a spot on the lung that is three centimeters in diameter or less. Lung nodules are quite common and are found in chest x-rays and CT scans. It is incidental because it is unrelated to the reason your caregiver prescribed the exam. With newer imaging tests and technologies, it is becoming more common to find small masses and tissue when looking for other things. These findings can sometimes be related to undiagnosed illness. Although many are not a cause for concern, it is always a good idea to talk to your caregiver about what was found. Types of Findings There are many types of masses/nodules and tissue abnormalities that can be detected during an imaging test. These types may include: Lesions - changes in tissue due to infections or trauma Cysts a mass filled with fluid, crystals, or some other substance Tumors non-cancerous solid mass Further Diagnosis Generally, very small tissue changes or masses will not require follow-up testing. Depending on the size and appearance of the finding, your caregiver may recommend additional testing. Additional testing may also be recommended if you have certain risk factors or medical conditions that increase your risk of related problems. Testing Tests and exams may be a one-time screening or periodic follow-up. Periodic follow-up will help your caregiver determine whether the abnormality is growing or becoming a concern. Tests may include: Physical Examination Imaging tests, such as CT scan MRI and/or PET scan Bronchoscopy Biopsy Treatment The treatment of lung nodules varies widely depending upon the cause, whether they are related to infections, inflammation, cancer, or other conditions. Most benign lung nodules, especially those that are present and have not changed over a period of a few years, can be left alone. Treatment may include: Watchful waiting with periodic exams and testing Treatments to reduce the size of the abnormality Surgical or biopsy removal of the abnormality Additional treatments to address any underlying conditions Home Care Instructions See your caregiver for any follow-up examinations and testing as directed. Keep calm, your caregiver will let you know if this is a routine follow-up, or if there is cause for concern. Remember, early detection can be very beneficial to you. Follow your caregiver s aftercare instructions related to the reason for you visit. Additional Information VACCINATE! IT SAVES LIVES! Members of the community who have not yet received the COVID-19 vaccine and would like to receive it can visit one of [facility] vaccine clinics. There are many vaccine clinic locations within the [facility]. For locations and available times, please visit [email or web address] [email or web address] It is important to note that some COVID mobile vaccine clinics are held outdoors and may be canceled in rainy or stormy conditions. To learn more about pediatric vaccinations (ages 5-11), we invite you to visit the [facility] webpage. [email or web address]/p [email or web address]-Xqjef-Jvxnbyhjtza-Freq [email or web address].[email or web address] To learn more about the COVID-19 vaccine, we invite you to visit the CDC website for a list of frequently asked questions. https://www.cdc.gov/coronavirus/ 2019-ncov/vaccines/faq.html [facility] Patient Portal Access Instructions: Stay connected with your healthcare team and access your personal medical information anytime with the [facility] Patient Portal. If you would like a full copy of your medical records please contact the [facility] Medical Records Department Sunday through Sunday between 8a.m. and 4:30p.m. Please follow the directions below to access the portal: 1.Access the email account you provided upon registration to the [facility].2.Look for an invitation email from [facility].3.Open the email and access the invitation link: Accept Invitation to [facility]4.Fill in the required emerson to create your account. Sign into www.[employer] with your username and password that you created in the above steps to stay up to date. You can then view a summary of results, a summary of your visits, and the ability to download your summaries to your computer or send the information securely to a physician. Remember that your healthcare information is confidential, so carefully consider who you will allow to register on the [email or web address] Patient Portal for access to your information. You can also access the [email or web address] Patient Portal on the [employer]. Simply click on Health Records under Health Data and then click on the [employer] logo. HOW TO SAFELY DISPOSE OF PRESCRIPTION MEDICATIONS Please use one of the following methods to safely dispose of your unused medications. 1.Use a drug disposal kit: the drug disposal pouch allows you to safely discard your old and unused drugs. Ask your nurse to give you one when you are discharged.2.Visit a local take-back location: Many local pharmacies and police departments have programs that collect old and unwanted prescription drugs. Call your local pharmacy or go to [email or web address] to find one close to you.3.Make use of household items: Use cat litter or old coffee grounds to dispose medications if other options are not available. Mix your drugs with these household products, seal them in an airtight container and throw it into the garbage. Call [facility]: [phone] to be sure your drugs can be disposed of in this way. Some medicines may require a different approach.4.Never flush your medications down the toilet. IF YOU HAVE BEEN PRESCRIBED AN OPIOIDS FOR PAIN If you have been prescribed an opioid (such as hydrocodone, oxycodone or morphine), it is critical to understand the possible side effects and risks of opioid pain medications. Even when taken as directed, opioids can have several side effects including: Tolerance, meaning you might need to take more of a medication for the same pain relief. Nausea, vomiting and/or constipation. Sleepiness, dizziness, dry mouth, confusion, depression or itching. Physical dependence, meaning you have withdrawal symptoms when a medication is stopped ? this can develop within a few days. KNOW YOUR RESPONSIBILITIES It is important to know exactly how much and how often to take the opioid pain medications you are prescribed. Never take opioids in higher amounts or more often than prescribed. Do not combine opioids with alcohol or other drugs that cause drowsiness, such as benzodiazepines, also known as benzos, including diazepam and alprazolam, muscle relaxants or sleep aids. Never sell or share prescription opioids. This is illegal. Store opioids in a secure place and out of reach of others (including children, family, friends and visitors). The last page(s) of this document has been signed and retained as a CHART COPY Signatures Patient Education Materials Chest Pain, Noncardiac Radiology-Incidental Lung Nodule Finding (06/2018)(CUSTOM) Medication Leaflets nabumetone My discharge plan and instructions have been reviewed and explained to me and I,KENDALL ALEJANDRO understand my current condition and have read and understand these discharge instructions. I have received a written copy of the plan/instructions. If I have questions, I am aware that I should contact my doctor. Patient/Demand Planner Signature: Date/Time: Relationship to Patient: Witness Name/Signature: Date/Time: [facility] 02-14-2023 Note ORIGINAL EXAMINATION: CTA OF THE CHEST02/14/2023 10:14 pm TECHNIQUE: CTA of the chest was performed after the administration of intravenous contrast. Multiplanar reformatted images are provided for review. MIP images are provided for review. Automated exposure control, iterative reconstruction, and/or weight based adjustment of the mA/kV was utilized to reduce the radiation dose to as low as reasonably achievable. COMPARISON: None HISTORY: ORDERING SYSTEM PROVIDED HISTORY: Reason for Exam: chest pain; suspect PE FINDINGS: The contrast bolus is adequate for the evaluation of the lobar and segmental pulmonary arterial branches. No filling defect is seen to suggest acute pulmonary embolism. Normal heart size. No pericardial effusion or pericardial thickening. Soft tissue hyperdensity within the anterior/superior mediastinum consistent with residual thymic tissue given patient age. Nonaneurysmal thoracic aorta. Normal caliber main pulmonary artery. The trachea and mainstem bronchi are patent. No focal consolidation, pleural effusion, or pneumothorax. 3 mm nodule within the right middle lobe (image 92, series 3) and left lower lobe (image 148, series 3). No pathologically enlarged or aggressive appearing lymph nodes. No acute osseous abnormality. No aggressive osseous lesions. No acute abnormality within the partially visualized upper abdomen. IMPRESSION: No evidence of pulmonary embolism. 3 mm pulmonary nodules, right middle lobe and left lower lobe. No follow-up imaging is recommended if patient is considered low risk. If patient is considered high risk, optional CT can be considered at 12 months. Recommendations per Fleischner criteria. Please note recommendations do not apply to patients with cancer or immunocompromised patients. I have personally reviewed the images of this examination and agree with the resident's findings and interpretation. Interpreted by: Pedro Cortez DO Preliminary Report By: Kelvin Bolton Electronically signed By Pedro Cortez DO Dictated Date: 02/14/2023 10:40:06 PM Prelim Date: 02/14/2023 10:50:19 PM Sign Date: 02/14/2023 10:52:07 PM Ordering Provider: MAINE AQUINO [facility] 02-14-2023 Note ORIGINAL EXAMINATION: ONE XRAY VIEW OF THE CHEST 02/14/2023 10:03 pm COMPARISON: None. HISTORY: ORDERING SYSTEM PROVIDED HISTORY: Reason for Exam: Chest pain. FINDINGS: The cardiac and mediastinal contours are within normal limits. There is no appreciable pneumothorax, pleural effusion, or vascular congestion. No focal consolidations. No acute skeletal abnormality is evident. IMPRESSION: 1. No evidence of acute cardiopulmonary process. Interpreted by: Pedro Cortez DO Preliminary Report By: Pedro Cortez DO Electronically signed By Pedro Cortez DO Dictated Date: 02/14/2023 10:56:01 PM Prelim Date: 02/14/2023 10:56:39 PM Sign Date: 02/14/2023 10:56:39 PM Ordering Provider: MAINE AQUINO [facility] 02-14-2023 Note Sinus tachycardia Atrial premature complex Electronic Signature: MAINE AQUINO MD 02/14/2023 20:21:34 [facility] 02-13-2023 History of Presen t illness Narrative Tele-Health Visit Statement [facility] The patient's identity was verified and they have verbally stated that they are currently in the [facility]. The risks, benefits, and alternatives of a realtime synchronous audiovisual consultation were discussed with the patient and/or their guardian and they have given their verbal consent to this tele-health visit. 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 He reports that the nightmares went away from the Doxepin but he reports that it stopped working at 25 mg. Agrees to increase the Doxepin to 50 mg. Since increasing his Abilify to 15 mg, the hallucinations have pretty much went away. Work is going well. He continues to see Kelly at [facility]; hasn't seen her in a month but plans on doing so soon. He got sent to the hospital from work yesterday; he says that he thinks he had a heart attack but the hospital told him that he pulled a muscle. He says that his heart is sore today. He says that it felt like someone twisted his heart and his b.p. was 160/130 and his hr was 170. He reports that the pain is less bad than it was yesterday. He agrees to let me send a message to his PCP and advised him that she likely would put in a referral for cardiology. He is okay with this. He reports that his ADHD is terrible ; he is very hyper and irritable. He has difficulty focusing and can't pay attention. 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 Discussed that I am going to notify PCP about his potential cardiac issue from yesterday, at which time she will most likely place a cardio referral, and I would want to review that before initiating stimulant tx. At next appt, it may be appropriate to increase Wellbutrin in the meantime. His hallucinations and mood are well controlled now. 01/11/23 f/u: Pt has previously been seen by faceter Silvia Lynch APRN, but requested a transfer to a different psych provider. Pt is vague regarding why he wanted to transfer, stating that he just wasn't doing well enough. He just had his top surgery through Dr. Toribio a few months ago and reports that his recovery is going great. Pt takes hydroxyzine 25 mg 4 or 5 times a day, and reports that he has no side effects such as sedation, but also reports no efficacy. He has tried taking both 25 mg as well as 50 mg with no effect. Reviewed past med trials: Elavil (switched to Remeron for d/t inefficacy), traz (ineffective), Strattera ( suicidal thoughts ), prazosin (nightmares - states he was taken off d/t low blood pressure causing him to pass out at work), Lamictal (rash), Latuda ( wasn't effective ); Klonopin ( it's been a while, I can't remember why I stopped taking it ), Vraylar ( can't remember ), Zoloft (SI) Celexa, ( not sure ), Lexapro ( wasn't very effective, but I was very young when I took it ), and Seroquel (SI). Buspar caused him to go manic for months, and it made me very mean. Does not recall ever being on Cymbalta, Effexor, or Pristiq. He reports no hx of psych hospitalizations, stating that he tried to get hospitalized once, but they wouldn't keep him. He does report hx of SAs, most recently 5 years ago by drinking a bottle of cough syrup, which did not require medical treatment or hospitalization. He used to engage in SIB by cutting, although hasn't acted out on them in 6 or 7 years. He does still have urges, but I just know I can't. He lives with his fiancee and her kids. He is currently in therapy with Shannan Maharaj in [place] with [place], going once per week, and he reports that it has been helpful for him. 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 He reports that he struggles with suicidal ideation, pretty bad, I always think that I would be better off, like in the back of my head. Description is more consistent with PDW than SI. He reports that he has friends he can talk to as well as his fiancee, in addition to his therapist at [facility]. He reports that his mother is schizophrenic, and he and his therapist have thought that he might be schizoaffective. He says this started worsening when he was , having hallucinations and delusions. VH: bugs ( the other day I swore I saw a spider on my face ), I see people standing around me sometimes ; AH: it sounds like a hundred voices all at once and it's non-stop ; this is what causes his anxiety/panic attacks to act up. He reports no pattern in terms of when the AH/VH happens. He reports that he last had a manic episode 2-3 weeks ago, during which he was very upbeat, couldn't sit still, talked 100 miles per hour, I don't sleep, and my hallucinations and delusions get really bad. He reports that as far as delusions, when he's in a crowd of people he gets paranoid and is certain that people are talking about him. This also gets worse during manic episodes, which tend to last a week or two. He reports that he has trauma-related nightmares almost every night, and the Prazosin helped with that a bit, but then caused him to have an episode where he passed out at work and a nurse checked his blood pressure and it was quite low. He reports very poor sleep, stating that it takes him a couple hours to initiate sleep, and then he continues to wake up every hour or so; he does not struggle with falling back asleep, unless he was woken up by a nightmare, in which case it's difficult. 01/11/23 Plan: Continue Wellbutrin XL 300 mg PO qd for depression/ADHD (pt reports that he takes it at night bc it causes him to feel sedated) Continue Clonidine 0.2 mg PO qhs for PTSD Continue Remeron 30 mg PO qhs for depression/anxiety/PTSD/sleep (depending upon response to Doxepin for sleep, may reduce down to 7.5 mg, which is a dose that tends to be more helpful for sleep) Increase Abilify to 15 mg PO qd for BPAD2/possible schizoaffective disorder (to treat mood instability and psychosis) D/c hydroxyzine d/t inefficacy Add doxepin 25 mg PO qhs for sleep Further medication changes will depend on client report of symptoms and tolerability RTC in 4-6 weeks (pt will schedule based on his work schedule which is yet to be released) JAYLEN Alejandro is a 22 year old Adult here today for follow-up med management visit. Symptoms include sadness ( worse since I've been stuck at home; go back next Sunday; before that was there, normal for me ), decreased interest ( not it; kind of been the same throughout ), hopelessness, panic ( handful, 4-5; 10m; out of nowhere talk to random somebody that I know ), difficulty concentrating ( yeah ), increased fatigue ( worse last couple weeks ) and sleep disturbance ( since surgery maybe an hour or two a night sleeping on my couch very uncomfortable, have to sleep in recliner ; 1-2h; napping trying to avoid it ; not restorative). Patient denies or there is no evidence of low self-esteem, guilt, nervousness/anxiousness ( not too bad ), inflated self-esteem, decreased need for sleep, euphoric mood, hallucinations, irritability, appetite change, suicidal ideas or homicidal ideas. Weight change: h/o disordered eating does weigh self.: 50h/w. Past treatments tried include: Psychotherapy: Kelly at [facility] see her next week . Compliance with prior treatments has been good. 11/08/2020 8:00 AM Kuldeep-7 Total (!) 16 HIV Care No results found for: CD4, COPIESML, HELPSUPP If client is HIV+, provider reviewed HIV care, Viral Load, and CD4: Not applicable AIMS 11/22/2020 9:00 AM 1. Muscles of facial expression none 2. Lips and perioral area none 3. Jaw none 4. Tongue none 5. Upper (arms, wrists, hands, fingers) none 6. Lower (legs, knees, ankles, toes) none 7. Neck shoulders, hips none 8. Severity of abnormal movements none 9. Incapacitation due to abnoral movements none, normal 10. Patient's awareness of abnormal movements no awareness 11. Current problems with teeth and/or dentures no 12. Does patient usually wear dentures? no Total (items 1-7) 0 Recent Labs: T4FREE (ng/dL) Date Value 05/31/2020 1.3 TSH (uU/mL) Date Value 05/31/2020 4.3 WBC (x10E3/uL) Date Value 09/28/2022 8.1 06/02/2022 8.2 RBC (x10E6/uL) Date Value 09/28/2022 5.67 (H) 06/02/2022 5.54 (H) HGBA1C Date Value 06/02/2022 5.7 % (H) 05/31/2020 5.5 %Hb HGB (g/dL) Date Value 09/28/2022 15.6 06/02/2022 15.5 HCT (%) Date Value 09/28/2022 47.0 (H) 06/02/2022 46.8 (H) CHOL (mg/dL) Date Value 09/28/2022 127 06/02/2022 136 TRIGLYC (mg/dL) Date Value 09/28/2022 77 06/02/2022 115 HDL (mg/dL) Date Value 09/28/2022 42 06/02/2022 44 LDL (mg/dL) Date Value 09/28/2022 70 06/02/2022 71 VLDL (mg/dL) Date Value 09/28/2022 15 06/02/2022 21 GLUCOSE (mg/dL) Date Value 09/28/2022 71 06/02/2022 74 BUN (mg/dL) Date Value 09/28/2022 9 06/02/2022 10 CREATININE (mg/dL) Date Value 09/28/2022 0.98 06/02/2022 0.81 EGFR (mL/min/1.73) Date Value 09/28/2022 83 06/02/2022 105 05/31/2020 111 05/31/2020 128 AST (IU/L) Date Value 09/28/2022 22 06/02/2022 17 ALT (IU/L) Date Value 09/28/2022 24 06/02/2022 25 BILIRUBIN (mg/dL) Date Value 09/28/2022 0.5 06/02/2022 0.3 Review of Systems Constitutional: Negative for appetite change. Cardiovascular: Positive for chest pain (per pt - sent message to PCP) and palpitations (per pt - sent message to PCP). Just with anxiety attacks ; H/o the same PCP aware per him Gastrointestinal: Negative. Neurological: PD: denies noticing by either self or others (prev states shoulders; kind of like a tic; off and on; not new had that for a few years no change ) Psychiatric/Behavioral: Positive for sleep disturbance ( since surgery maybe an hour or two a night sleeping on my couch very uncomfortable, have to sleep in recliner ; 1-2h; napping trying to avoid it ; not restorative). Negative for hallucinations, homicidal ideas and suicidal ideas. The patient is not nervous/anxious ( not too bad ). Mental Status Exam Appearance is appropriate for circumstance. General Health is generally good. Motor Activity is unremarkable. Speech is unremarkable. Affect is constricted. slight Reported Mood is neutral/euthymic. pretty good Thought Content is unremarkable. Thought Process is goal-directed and is linear. Perception is unremarkable. Attention is alert. Demeanor is appropriate for situation. Insight is fair. Judgement is appropriate. Orientation is fully oriented. Memory is grossly intact and not formally tested. Narrative: Reviewed [facility] report 02/13/2023 which reveals testosterone last filled 02/02/23 and diazepam 5 mg #2 last filled 12/14/22. Total visit time today was 20 minutes. Greater than 50% of this time was spent providing counseling and care coordination around chief complaint, including any additional diagnoses listed above. Shared-decision making was made with consideration for patient specific factors. All patient's questions were answered and patient verbally confirms and understands plan of care. Diagnosis: 1. Bipolar 2 disorder ([facility]) - ARIPiprazole (ABILIFY) 15 mg tablet; Take 1 Tablet by mouth once daily Dispense: 30 Tablet; Refill: 1 - buPROPion HCL (WELLBUTRIN XL) 300 mg 24 hr tablet; Take 1 Tablet by mouth daily. Dispense: 30 Tablet; Refill: 1 - doxepin (SINEQUAN) 25 mg capsule; Take 2 Capsules by mouth nightly at bedtime Dispense: 30 Capsule; Refill: 1 - mirtazapine (REMERON) 30 mg tablet; Take 1 Tablet by mouth nightly at bedtime Dispense: 30 Tablet; Refill: 1 2. Schizoaffective disorder, bipolar type ([facility]) - ARIPiprazole (ABILIFY) 15 mg tablet; Take 1 Tablet by mouth once daily Dispense: 30 Tablet; Refill: 1 - buPROPion HCL (WELLBUTRIN XL) 300 mg 24 hr tablet; Take 1 Tablet by mouth daily. Dispense: 30 Tablet; Refill: 1 - doxepin (SINEQUAN) 25 mg capsule; Take 2 Capsules by mouth nightly at bedtime Dispense: 30 Capsule; Refill: 1 - mirtazapine (REMERON) 30 mg tablet; Take 1 Tablet by mouth nightly at bedtime Dispense: 30 Tablet; Refill: 1 3. Attention deficit hyperactivity disorder (ADHD), predominantly inattentive type - buPROPion HCL (WELLBUTRIN XL) 300 mg 24 hr tablet; Take 1 Tablet by mouth daily. Dispense: 30 Tablet; Refill: 1 4. PTSD (post-traumatic stress disorder) - ARIPiprazole (ABILIFY) 15 mg tablet; Take 1 Tablet by mouth once daily Dispense: 30 Tablet; Refill: 1 - buPROPion HCL (WELLBUTRIN XL) 300 mg 24 hr tablet; Take 1 Tablet by mouth daily. Dispense: 30 Tablet; Refill: 1 - cloNIDine HCL (CATAPRES) 0.2 mg tablet; Take 1 Tablet by mouth every evening Dispense: 30 Tablet; Refill: 1 - doxepin (SINEQUAN) 25 mg capsule; Take 2 Capsules by mouth nightly at bedtime Dispense: 30 Capsule; Refill: 1 - mirtazapine (REMERON) 30 mg tablet; Take 1 Tablet by mouth nightly at bedtime Dispense: 30 Tablet; Refill: 1 5. R/o Schizoaffective disorder, bipolar type ([facility]) - ARIPiprazole (ABILIFY) 15 mg tablet; Take 1 Tablet by mouth once daily Dispense: 30 Tablet; Refill: 1 - buPROPion HCL (WELLBUTRIN XL) 300 mg 24 hr tablet; Take 1 Tablet by mouth daily. Dispense: 30 Tablet; Refill: 1 - doxepin (SINEQUAN) 25 mg capsule; Take 2 Capsules by mouth nightly at bedtime Dispense: 30 Capsule; Refill: 1 - mirtazapine (REMERON) 30 mg tablet; Take 1 Tablet by mouth nightly at bedtime Dispense: 30 Tablet; Refill: 1 Psychotherapy add-on service: No Plan: Continue Wellbutrin XL 300 mg PO qd for depression/ADHD (pt reports that he takes it at night bc it causes him to feel sedated) Continue Clonidine 0.2 mg PO qhs for PTSD Continue Remeron 30 mg PO qhs for depression/anxiety/PTSD/sleep Increase Abilify to 15 mg PO qd for BPAD2/possible schizoaffective disorder Increase doxepin to 50 mg PO qhs for sleep Continue seeing Kelly for therapy Advised I will notify PCP of his reports of chest pain yesterday and concerns that he had a heart attack (ED told him that it was a pulled muscle, but the doctor there is transphobic so pt isn't sure if that is true); explained that she will likely want to order cardio referral Further medication changes will depend on pt report of symptoms and tolerability RTC in 6-8 weeks; pt will call to schedule based on his work schedule at that time (he prefers to do it this way) Explained rationale for medication choices and discussed possible risks, benefits and alternative treatment with client (parent/guardian)? [x] Yes [] No Client/Guardian Response: [x] Understands Information [] Does Not Understand [] Agrees with Medication [] Refuses Medication documented in this encounter [employer] Work Phone: 01-11-2023 History of Presen t illness Narrative Tele-Health Visit Statement [employer] The patient's identity was verified and they have verbally stated that they are currently in the state [facility]. The risks, benefits, and alternatives of a realtime synchronous audiovisual consultation were discussed with the patient and/or their guardian and they have given their verbal consent to this tele-health visit. 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 Pt is vague regarding why he wanted to transfer, stating that he just wasn't doing well enough. He just had his top surgery through Dr. Toribio a few months ago and reports that his recovery is going great. Pt takes hydroxyzine 25 mg 4 or 5 times a day, and reports that he has no side effects such as sedation, but also reports no efficacy. He has tried taking both 25 mg as well as 50 mg with no effect. Reviewed past med trials: Elavil (switched to Remeron for d/t inefficacy), traz (ineffective), Strattera ( suicidal thoughts ), prazosin (nightmares - states he was taken off d/t low blood pressure causing him to pass out at work), Lamictal (rash), Latuda ( wasn't effective ); Klonopin ( it's been a while, I can't remember why I stopped taking it ), Vraylar ( can't remember ), Zoloft (SI) Celexa, ( not sure ), Lexapro ( wasn't very effective, but I was very young when I took it ), and Seroquel (SI). Buspar caused him to go manic for months, and it made me very mean. Does not recall ever being on Cymbalta, Effexor, or Pristiq. He reports no hx of psych hospitalizations, stating that he tried to get hospitalized once, but they wouldn't keep him. He does report hx of SAs, most recently 5 years ago by drinking a bottle of cough syrup, which did not require medical treatment or hospitalization. He used to engage in SIB by cutting, although hasn't acted out on them in 6 or 7 years. He does still have urges, but I just know I can't. He lives with his fiancee and her kids. He is currently in therapy with Shannan Maharaj in [place] with [place], going once per week, and he reports that it has been helpful for him. 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 He reports that he struggles with suicidal ideation, pretty bad, I always think that I would be better off, like in the back of my head. Description is more consistent with PDW than SI. He reports that he has friends he can talk to as well as his fiancee, in addition to his therapist at [facility]. He reports that his mother is schizophrenic, and he and his therapist have thought that he might be schizoaffective. He says this started worsening when he was , having hallucinations and delusions. VH: bugs ( the other day I swore I saw a spider on my face ), I see people standing around me sometimes ; AH: it sounds like a hundred voices all at once and it's non-stop ; this is what causes his anxiety/panic attacks to act up. He reports no pattern in terms of when the AH/VH happens. He reports that he last had a manic episode 2-3 weeks ago, during which he was very upbeat, couldn't sit still, talked 100 miles per hour, I don't sleep, and my hallucinations and delusions get really bad. He reports that as far as delusions, when he's in a crowd of people he gets paranoid and is certain that people are talking about him. This also gets worse during manic episodes, which tend to last a week or two. He reports that he has trauma-related nightmares almost every night, and the Prazosin helped with that a bit, but then caused him to have an episode where he passed out at work and a nurse checked his blood pressure and it was quite low. He reports very poor sleep, stating that it takes him a couple hours to initiate sleep, and then he continues to wake up every hour or so; he does not struggle with falling back asleep, unless he was woken up by a nightmare, in which case it's difficult. f/u with Silvia Lynch APRN: Client is a 22 yo trans man presenting for f/u. SGA MONITORING: Started: 08/2020 (was on Abilify, then Latuda, now Abilify again) Last metabolic screening: WNL, 08/2022 BP readin/82, 08/2022 Most recent weight: #266, 08/2022 Earliest weight: #254, 05/2020 Any inc?: >5.11% (already on metformin, being managed by PC) Plan from Silvia Lynch APRN: Will re-up metabolic labs closer to 08/2023. 08/2022 VS reviewed. Advised f/u c medical services for cardiac sx. Reviewed sleep hygiene appears to be well-managed at this time; however, seems I strongly r/t GAS recovery/having to sleep in recliner. If only temporarily, increasing Remeron for the same as well as A. Also trialing PRN Vistaril for A r/b reviewed including QT, sedation. Encouraged continued f/u in therapy. [facility] AIMS, ED. Support and encouragement provided. Follow-up to be scheduled by client. JAYLEN Kendall Alejandro is a 22 year old Adult here today for follow-up med management visit. Symptoms include sadness ( worse since I've been stuck at home; go back next Sunday; before that was there, normal for me ), decreased interest ( not it; kind of been the same throughout ), hopelessness, panic ( handful, 4-5; 10m; out of nowhere talk to random somebody that I know ), difficulty concentrating ( yeah ), increased fatigue ( worse last couple weeks ) and sleep disturbance ( since surgery maybe an hour or two a night sleeping on my couch very uncomfortable, have to sleep in recliner ; 1-2h; napping trying to avoid it ; not restorative). Patient denies or there is no evidence of low self-esteem, guilt, nervousness/anxiousness ( not too bad ), inflated self-esteem, decreased need for sleep, euphoric mood, hallucinations, irritability, appetite change, suicidal ideas or homicidal ideas. Weight change: h/o disordered eating does weigh self.: 50h/w. Past treatments tried include: Psychotherapy: Kelly at [facility] see her next week . Compliance with prior treatments has been good. 11/08/2020 8:00 AM Kuldeep-7 Total (!) 16 HIV Care No results found for: CD4, COPIESML, HELPSUPP If client is HIV+, provider reviewed HIV care, Viral Load, and CD4: Not applicable AIMS 11/22/2020 9:00 AM 1. Muscles of facial expression none 2. Lips and perioral area none 3. Jaw none 4. Tongue none 5. Upper (arms, wrists, hands, fingers) none 6. Lower (legs, knees, ankles, toes) none 7. Neck shoulders, hips none 8. Severity of abnormal movements none 9. Incapacitation due to abnoral movements none, normal 10. Patient's awareness of abnormal movements no awareness 11. Current problems with teeth and/or dentures no 12. Does patient usually wear dentures? no Total (items 1-7) 0 Recent Labs: T4FREE (ng/dL) Date Value 05/31/2020 1.3 TSH (uU/mL) Date Value 05/31/2020 4.3 WBC (x10E3/uL) Date Value 09/28/2022 8.1 06/02/2022 8.2 RBC (x10E6/uL) Date Value 09/28/2022 5.67 (H) 06/02/2022 5.54 (H) HGBA1C Date Value 06/02/2022 5.7 % (H) 05/31/2020 5.5 %Hb HGB (g/dL) Date Value 09/28/2022 15.6 06/02/2022 15.5 HCT (%) Date Value 09/28/2022 47.0 (H) 06/02/2022 46.8 (H) CHOL (mg/dL) Date Value 09/28/2022 127 06/02/2022 136 TRIGLYC (mg/dL) Date Value 09/28/2022 77 06/02/2022 115 HDL (mg/dL) Date Value 09/28/2022 42 06/02/2022 44 LDL (mg/dL) Date Value 09/28/2022 70 06/02/2022 71 VLDL (mg/dL) Date Value 09/28/2022 15 06/02/2022 21 GLUCOSE (mg/dL) Date Value 09/28/2022 71 06/02/2022 74 BUN (mg/dL) Date Value 09/28/2022 9 06/02/2022 10 CREATININE (mg/dL) Date Value 09/28/2022 0.98 06/02/2022 0.81 EGFR (mL/min/1.73) Date Value 09/28/2022 83 06/02/2022 105 05/31/2020 111 05/31/2020 128 AST (IU/L) Date Value 09/28/2022 22 06/02/2022 17 ALT (IU/L) Date Value 09/28/2022 24 06/02/2022 25 BILIRUBIN (mg/dL) Date Value 09/28/2022 0.5 06/02/2022 0.3 Review of Systems Constitutional: Negative for appetite change. Cardiovascular: Positive for chest pain and palpitations. Just with anxiety attacks ; H/o the same PCP aware per him Gastrointestinal: Negative. Neurological: PD: denies noticing by either self or others (prev states shoulders; kind of like a tic; off and on; not new had that for a few years no change ) Psychiatric/Behavioral: Positive for sleep disturbance ( since surgery maybe an hour or two a night sleeping on my couch very uncomfortable, have to sleep in recliner ; 1-2h; napping trying to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 drinking? Never Have you or someone else been injured as a result of your drinking? No Has a relative or friend or a doctor or another health worker been concerned about your drinking or suggested you cut down? No AUDIT Total Score (Auto Calculated) 2 Risk Zone (Male): Zone I: Low Risk Risk Zone (Female): Zone I: Low Risk Did patient decline PHQ screening? No Little interest or pleasure in doing things Nearly every day Feeling down, depressed or hopeless [include irritable if under 18] More than half the days PHQ2 Score (!) 5 Little interest or pleasure in doing things Nearly every day Feeling down, depressed or hopeless [include irritable if under 18] More than half the days Trouble falling or staying asleep, or sleeping too much Nearly every day Feeling tired or having little energy Nearly every day Poor appetite or overeating Nearly every day Feeling bad about yourself - or that you are a failure or have let yourself or your family down Several days Trouble concentrating on things like school work, reading or watching TV? Nearly every day Moving or speaking so slowly that other people could have noticed? Or the opposite - being so fidgety or restless that you have been moving around a lot more than usual Nearly every day Thoughts you would be better off or of hurting yourself in some way Not at all If you checked off any problems, how difficult have these problems made it for you to do your work, take care of things at home, or get along with other people? Very difficult PHQ-9 Total Score (Auto Calculated) (!) 21 Depression Severity: Severe Major depression criteria of 5+ symptom and disability met? Yes AUDIT Total Score (Auto Calculated) 2 at 07/25/2022 1:59 PM PHQ-9 Total Score (Auto Calculated) (!) 21 at 07/25/2022 1:59 PM KULDEEP-7 11/08/2020 8:00 AM Feeling nervous, anxious, or on edge: Nearly every day Not being able to stop or control worrying: Several days Worrying too much about different things: Nearly every day Trouble relaxing: More than half the days Being so restless that it is hard to sit still: Nearly every day Becoming easily annoyed or irritable: More than half the days (getting better) Feeling afraid, as if something awful might happen: More than half the days Kuldeep-7 Total (!) 16 Anxiety Severity: Severe Anxiety Health Maintenance Due Topic Date Due Hepatitis C Screening Never done Imm-Hepatitis B (1 of 3 - 3-dose series) Never done [id number] (1) Never done Imm-Pneumococcal (1 - PCV) Never done Chlamydia Screening Never done Gonorrhea Screening Never done HIV Screening Never done Goals as of 09/28/2022 at 12:52 PM Diploma (pt-stated) Kendall will work towards his diploma over the next 12 months. Guitar (pt-stated) Patient will play his guitar at least 1 hour a week for the next 3 months. Motivation (pt-stated) Patient will clean the house on his day off once every 2 weeks for the next 6 months. PHQ-9 Total Score (Auto Calculated) < 15 Patient will lower his PHQ-9 score to 15 or lower within in the next 6 months. Patient Active Problem List Diagnosis PTSD (post-traumatic stress disorder) Nicotine use disorder Bipolar 2 disorder ([facility]) Gender dysphoria Attention deficit hyperactivity disorder (ADHD), predominantly inattentive type History of suicide attempt S/P laparoscopic hysterectomy Obesity, Class III, BMI 40-49.9 (morbid obesity) ([facility]) Acne vulgaris Weight gain due to medication Abnormal movements Prediabetes HIV testing offered: Declines STI testing offered: Declines documented in this encounter [employer] Work Phone: 09-21-2022 History of Presen t illness Narrative Tele-Health Visit Statement [employer] The patient's identity was verified and they have verbally stated that they are currently in the [facility]. The risks, benefits, and alternatives of a realtime synchronous audiovisual consultation were discussed with the patient and/or their guardian and they have given their verbal consent to this tele-health visit. 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: Not Applicable Gini Alejandro Current Outpatient Medications on File Prior to Visit Medication Sig Dispense Refill doxycycline (VIBRAMYCIN) 100 mg capsule Take 1 capsule by mouth twice daily 60 Capsule 0 metFORMIN XR (GLUCOPHAGE-XR) 500 mg 24 hr tablet Take 1 tablet by mouth once daily with breakfast 30 Tablet 0 liraglutide, weight loss, (SAXENDA) 3 mg/0.5 mL (18 mg/3 mL) pnij Inject 0.6mg under the skin daily for 1 week then 1.2mg daily for 1 week then 1.8mg daily for 1 week then 2.4mg daily for 1 week then 3mg daily thereafter 3 mL 1 testosterone cypionate (DEPO-TESTOTERONE CYPIONATE) 200 mg/mL injection Inject 0.55mL into the muscle every 7 days 10 mL 2 insulin syringe-needle U-100 1 mL 25 gauge x 5/8 Use for weekly subcutaneous injections 12 Each 2 needle, disp, 18 G (BD REGULAR BEVEL NEEDLES) 18 gauge x 1 ndle Use to draw medication for injection weekly 20 Each 1 No current facility-administered medications on file prior to visit. Others present: Client presents alone CC: f/u/ [re pharmacy issues] on pharmacy rody everything says it's out of refills; filled Abilify, been taking the 10; weight loss, sent Saxenda not being approved; worried because I get top surgery in three weeks have to lose 20 lbs before that; strict diet working out Subjective: On 08/14, dec Abilify re-trialing Wellbutrin. Sent shift letter. In interim appears PCP took over metformin. Objective Client is a 22 yo trans man presenting for f/u. SGA MONITORING: Started: 08/2020 (was on Abilify, then Latuda, now Abilify again) Last metabolic screening: inc a1c, 06/2022 BP readin/72, 06/2022 Most recent weight: #267, 06/2022 (per client, #266 as of 08/2022) Earliest weight: #254, 05/2020 Any inc?: 5.11% HPI Kendall Alejandro is a 22 year old adult here today for follow-up visit. Symptoms include decreased interest ( don't have interest in doing anything ; appears r/t stress), difficulty concentrating ( [across the board] yeah; feel like it's just the same ) and irritability ( angry can't focus; just anything, trying to do something can't focus ; denies outbursts). Patient denies or there is no evidence of sadness ( pretty good I think; surgery date now looking forward to that ; manageable), hopelessness, low self-esteem, guilt ( not really ), nervousness/anxiousness, panic, inflated self-esteem, decreased need for sleep, euphoric mood, hallucinations, appetite change, suicidal ideas, sleep disturbance ( last two nights had trouble; nightmares constant; 2-3 hours, feel tired ; 7-8h; restorative) or homicidal ideas. Weight change: h/o disordered eating does weigh self.: 50h/w. Past treatments tried include: Medication therapy, which was effective (Wellbutrin for sleep). Psychotherapy: Kelly alves [facility] [place] haven't been in two months haven't had time . Compliance with prior treatments has been good ( had to start taking Wellbutrin at night making me extremely tired ). 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 Tobacco Use Smoking status: Every Day Packs/day: 1.00 Years: 0.00 Pack years: 0.00 Types: Cigarettes Smokeless tobacco: Never Tobacco comments: 09/21: none in 1 month Vaping Use Vaping status: Every Day Substances: Nicotine, Flavoring Substance and Sexual Activity Alcohol use: Not Currently Alcohol/week: 5.0 standard drinks of alcohol Types: 4 Cans of beer, 1 Standard drinks or equivalent per week Comment: 09/21: denies recent Drug use: Never Comment: 09/21: denies Sexual activity: Yes Partners: Female control/protection: None Comment: monogamous; s/p hysteretomy Other Topics Concern Not on file Social History Narrative Caffeine: very high , 2 C4s qd (total of 300 mg) Partner: kristy; safe and supported Living: in house c kristy, 2 kids, 1 cat; feels safe Support: kristy, her family Upbringing: father Spiritual: denies Legal: denies Hobbies: guitar, social time Social Determinants of Health Financial Resource Strain: At Risk (07/14/2021) Financial Resource Strain Financial Resource Strain: 2 Food Insecurity: Not at Risk (07/14/2021) Food Insecurity Food: 1 Transportation Needs: At Risk (07/14/2021) Transportation Needs Transportation: 2 Physical Activity: Not at Risk (07/14/2021) Physical Activity Physical Activity: 1 Stress: At Risk (07/14/2021) Stress Stress: 2 Social Connections: Not at Risk (07/14/2021) Social Connections Social Connections and Isolation: 1 Housing Stability: At Risk (07/14/2021) Housing Stability Housin Past Medical History: Diagnosis Date Anxiety state Anxiety state Bipolar 1 disorder (HCC-CMS) Convulsions (HCC-CMS) single episode; states, friend laced my weed with meth Depression Depression Fatty liver h/o Chronic pain gone s/p hysterectomy History of psychiatric care Elavil (switched to Remeron for PD), traz (ineffective), Strattera (irrit), prazosin (BP), Lamictal (rash), Latuda; Klonopin Vraylar Zoloft (ALLX) Celexa Seroquel (ALLX) Other insomnia 09/14/2020 PTSD (post-traumatic stress disorder) HIV Care If client is HIV+, provider reviewed HIV care, Viral Load, and CD4:Not Applicable AIMS 11/22/2020 9:00 AM 1. Muscles of facial expression none 2. Lips and perioral area none 3. Jaw none 4. Tongue none 5. Upper (arms, wrists, hands, fingers) none 6. Lower (legs, knees, ankles, toes) none 7. Neck shoulders, hips none 8. Severity of abnormal movements none 9. Incapacitation due to abnoral movements none, normal 10. Patient's awareness of abnormal movements no awareness 11. Current problems with teeth and/or dentures no 12. Does patient usually wear dentures? no Total (items 1-7) 0 Review of Systems Constitutional: Negative for appetite change. Cardiovascular: Negative for chest pain and palpitations. H/o the same PCP not yet aware Gastrointestinal: Negative. Neurological: PD: N (prev states shoulders; kind of like a tic; off and on; not new had that for a few years no change ) Psychiatric/Behavioral: Negative for hallucinations, homicidal ideas, sleep disturbance ( last two nights had trouble; nightmares constant; 2-3 hours, feel tired ; 7-8h; restorative) and suicidal ideas. The patient is not nervous/anxious. Mental Status Exam Appearance is appropriate for circumstance. General Health is generally good. Motor Activity is unremarkable. Speech is unremarkable. Affect is blunted. slight Reported Mood is neutral/euthymic. pretty good Thought Content is unremarkable. Thought Process is goal-directed and is linear. Perception is unremarkable. Attention is alert. Demeanor is appropriate for situation. Insight is appropriate. Judgement is appropriate. Orientation is fully oriented. Memory is not formally tested. Narrative: Labs ordered/to be completed at [facility] appt, aware to fast (to best of ability). Will confer with PCP re metformin, as this was refilled/changed to XR; if she is wanting to continue to manage, client aware to f/u at next appt. Otherwise, author will monitor client's weight (ie once appt completed) and inc to 500 BID as appropriate (ie if weight not changed). Inc Wellbutrin for focus. Added Remeron back in unclear as to why this was d/c'd. Support and encouragement provided. Follow-up scheduled during visit. Diagnosis: F31.81 Bipolar 2 disorder ([facility]) (primary encounter diagnosis) Plan : ARIPIPRAZOLE 10 MG TABLET - Take 1 Tablet by mouth once daily BUPROPION HCL XL 300 MG 24 HR TABLET, EXTENDED RELEASE - Take 1 Tablet by mouth once daily F90.0 Attention deficit hyperactivity disorder (ADHD), predominantly inattentive type Plan : BUPROPION HCL XL 300 MG 24 HR TABLET, EXTENDED RELEASE - Take 1 Tablet by mouth once daily F43.10 PTSD (post-traumatic stress disorder) Plan : ARIPIPRAZOLE 10 MG TABLET - Take 1 Tablet by mouth once daily CLONIDINE HCL 0.2 MG TABLET - Take 1 Tablet by mouth every evening MIRTAZAPINE 15 MG TABLET - Take 1 Tablet by mouth nightly at bedtime R25.9 Abnormal movements Z91.51 History of suicide attempt R63.5,T50.905A Weight gain due to medication Z79.899 Medication management Plan : LIPID PANEL WITH LDL:HDL RATIO GLUCOSE, FASTING, BLOOD/PLASMA Orders Placed This Encounter Medications ARIPiprazole (ABILIFY) 10 mg tablet Sig: Take 1 Tablet by mouth once daily Dispense: 30 Tablet Refill: 1 cloNIDine HCL (CATAPRES) 0.2 mg tablet Sig: Take 1 Tablet by mouth every evening Dispense: 30 Tablet Refill: 1 buPROPion HCL (WELLBUTRIN XL) 300 mg 24 hr tablet Sig: Take 1 Tablet by mouth once daily Dispense: 30 Tablet Refill: 1 mirtazapine (REMERON) 15 mg tablet Sig: Take 1 Tablet by mouth nightly at bedtime Dispense: 30 Tablet Refill: 1 No orders of the defined types were placed in this encounter. Plan: Follow-up: Return in about 4 weeks (around 10/19/2022). documented in this encounter [employer] Phone: 09-18-2022 History of Presen t illness Narrative Safety Aide attempted contact with patient for follow-up on DCM related concern(s), as recommended by PCP. PT did not answer attempt, Safety Aide left voice message requesting return phone call. documented in this encounter [employer] Phone: 08-30-2022 Miscellaneous Notes Associated Problem(s): Obesity, Class III, BMI 40-49.9 (morbid obesity) ([facility]) Discussed side effects and dosing of saxenda Advised to notify me of any issues documented in this encounter [employer] Phone: 08-25-2022 History of Presen t illness Narrative Chief Complaint / HPI: Chief Complaint Patient presents with Health Maintenance Meds for pre-diabetes Pt states Wellbutrin is causing fatigue, feels like a zombie HPI Patient presents for virtual visit. Problems Assessed, Plan, Orders & Medical Decision Making 1. Obesity, Class III, BMI 40-49.9 (morbid obesity) ([facility]) (Primary) Overview: Patient is trying to lose weight, states he had been good with diet but recently has not been eating healthy. Was started on strattera for ADHD at [facility]. Was not effective for ADHD but was helpful with weight loss, lost 20 pounds in that period while on it but regained that weight plus additional pounds after stopping it. Considering starting GLP-1. 08/25/22: patient contacted insurance and was informed that saxenda is approved under their insurance plan Assessment & Plan: Discussed side effects and dosing of saxenda Advised to notify me of any issues Orders: - liraglutide, weight loss, (SAXENDA) 3 mg/0.5 mL (18 mg/3 mL) pnij; Inject 0.6mg under the skin daily for 1 week then 1.2mg daily for 1 week then 1.8mg daily for 1 week then 2.4mg daily for 1 week then 3mg daily thereafter, Disp-3 mL, R-1 e-Prescribing, Long-term Dispense: 3 mL; Refill: 1 2. Prediabetes Overview: Patient taking metformin, no associated complaints. Was unable to fill ozempic due to not being covered. Orders: - liraglutide, weight loss, (SAXENDA) 3 mg/0.5 mL (18 mg/3 mL) pnij; Inject 0.6mg under the skin daily for 1 week then 1.2mg daily for 1 week then 1.8mg daily for 1 week then 2.4mg daily for 1 week then 3mg daily thereafter, Disp-3 mL, R-1 e-Prescribing, Long-term Dispense: 3 mL; Refill: 1 Future Appointments Date Time Provider Department Center 09/28/2022 1:00 PM MAGNUS Zhang [facility] ROS & Physical Exam Review of Systems Constitutional: Positive for unexpected weight change. Negative for activity change. Respiratory: Negative. Cardiovascular: Negative. Gastrointestinal: Negative. Skin: Negative. Physical Exam Vitals reviewed: virtual visit- limited PE. Constitutional: General: He is not in acute distress. Appearance: Normal appearance. Pulmonary: Effort: Pulmonary effort is normal. Neurological: Mental Status: He is alert. Psychiatric: Mood and Affect: Mood normal. Behavior: Behavior normal. Thought Content: Thought content normal. Judgment: Judgment normal. documented in this encounter [employer] Phone: 08-18-2022 History of Presen t illness Narrative CN called pt discussing transfer of dcm care from [facility] to [facility]. Cn and pt went over goals with pt providing updates. CN and pt discussed frequency of calls. documented in this encounter [employer] Phone: 08-14-2022 History of Presen t illness Narrative TELEHEALTH Identity: Pt. identity confirmed by date of and address via telehealth Insurance type: U[employer] Client location: home Provider location: office Visit type: LIYAH Gini Alejandro Current Outpatient Medications on File Prior to Visit Medication Sig Dispense Refill metFORMIN (GLUMETZA) 500 mg 24 hr tablet Take 1 tablet by mouth daily with breakfast. 30 Tablet 2 semaglutide (OZEMPIC) 0.25 mg or 0.5 mg(2 mg/1.5 mL) Inject 0.5mg under the skin once every 7 days. Please report any side effects. 1.5 mL 1 testosterone cypionate (DEPO-TESTOTERONE CYPIONATE) 200 mg/mL injection Inject 0.55mL into the muscle every 7 days 10 mL 2 doxycycline (VIBRAMYCIN) 100 mg capsule Take 1 Capsule by mouth 2 (two) times daily 60 Capsule 2 insulin syringe-needle U-100 1 mL 25 gauge x 5/8 Use for weekly subcutaneous injections 12 Each 2 needle, disp, 18 G (BD REGULAR BEVEL NEEDLES) 18 gauge x 1 ndle Use to draw medication for injection weekly 20 Each 1 valACYclovir (VALTREX) 1 gram tablet No current facility-administered medications on file prior to visit. Others present: Client presents alone CC: f/u Subjective: On 07/20, d/c'd Elavil trialed Remeron for sleep/PD. Consider Vistaril. Objective Client is a 22 yo trans man presenting for f/u. 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 Symptoms include sadness ( almost every single day ), decreased interest ( gotten worse ), hopelessness, feelings of worthlessness, guilt ( a little bit yeah ), difficulty concentrating and irritability ( always been there a little bit; probably no change ; denies outbursts). Patient denies or there is no evidence of nervousness/anxiousness ( not really ), panic, inflated self-esteem, decreased need for sleep, euphoric mood, hallucinations, appetite change ( not really ), suicidal ideas, sleep disturbance ( great ; denies issues/nightmares; 7-8h; restorative) or homicidal ideas. Weight change: h/o disordered eating does weigh self.: denies stressors. Past treatments tried include: Psychotherapy treatment, which was effective (Kelly alves [facility] stopped for about 2w; once a week or once every other week ). . Compliance with prior treatments has been good ( late on morning metformin ). 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 Tobacco Use Smoking status: Every Day Packs/day: 1.00 Years: 0.00 Pack years: 0.00 Types: Cigarettes Smokeless tobacco: Never Tobacco comments: 08/14: none in 13d Vaping Use Vaping Use: Every day Substances: Nicotine, Flavoring Substance and Sexual Activity Alcohol use: Yes Alcohol/week: 5.0 standard drinks Types: 4 Cans of beer, 1 Standard drinks or equivalent per week Comment: 08/14: 1x/w, 1 serving Drug use: Never Comment: 08/14: denies Sexual activity: Yes Partners: Female control/protection: None Comment: monogamous; s/p hysteretomy Other Topics Concern Not on file Social History Narrative Caffeine: very high , 2 C4s qd (total of 300 mg) Partner: kristy; safe and supported Living: in house c kristy, 2 kids, 1 cat; feels safe Support: kristy, her family Upbringing: father Spiritual: denies Legal: denies Hobbies: guitar, social time Social Determinants of Health Financial Resource Strain: At Risk Financial Resource Strain: 2 Food Insecurity: Not at Risk Food: 1 Transportation Needs: At Risk Transportation: 2 Physical Activity: Not at Risk Physical Activity: 1 Stress: At Risk Stress: 2 Social Connections: Not at Risk Social Connections and Isolation: 1 Housing Stability: At Risk Housin Past Medical History: Diagnosis Date Anxiety state Anxiety state Bipolar 1 disorder ([facility]) Convulsions ([facility]) single episode; states, friend laced my weed with meth Depression Depression Fatty liver h/o Chronic pain gone s/p hysterectomy History of psychiatric care Elavil (switched to Remeron for PD), traz (ineffective), Strattera (irrit), prazosin (BP), Lamictal (rash), Latuda; Klonopin Vraylar Zoloft (ALLX) Celexa Seroquel (ALLX) Other insomnia 09/14/2020 PTSD (post-traumatic stress disorder) HIV Care If client is HIV+, provider reviewed HIV care, Viral Load, and CD4:Not Applicable AIMS 11/22/2020 9:00 AM 1. Muscles of facial expression none 2. Lips and perioral area none 3. Jaw none 4. Tongue none 5. Upper (arms, wrists, hands, fingers) none 6. Lower (legs, knees, ankles, toes) none 7. Neck shoulders, hips none 8. Severity of abnormal movements none 9. Incapacitation due to abnoral movements none, normal 10. Patient's awareness of abnormal movements no awareness 11. Current problems with teeth and/or dentures no 12. Does patient usually wear dentures? no Total (items 1-7) 0 Review of Systems Constitutional: Negative for appetite change ( not really ). Cardiovascular: Negative for chest pain and palpitations. H/o the same PCP not yet aware Gastrointestinal: Negative. Neurological: PD: N (prev states shoulders; kind of like a tic; off and on; not new had that for a few years no change ) Psychiatric/Behavioral: Negative for hallucinations, homicidal ideas, sleep disturbance ( great ; denies issues/nightmares; 7-8h; restorative) and suicidal ideas. The patient is not nervous/anxious ( not really ). Mental Status Exam Appearance is appropriate for circumstance. General Health is generally good. Motor Activity is unremarkable. Speech is unremarkable. Affect is blunted. slight Reported Mood is depressed. depression pretty bad; sleeping great Thought Content is unremarkable. Thought Process is goal-directed and is linear. Perception is unremarkable. Attention is alert. Demeanor is appropriate for situation. Insight is appropriate. Judgement is appropriate. Orientation is fully oriented. Memory is not formally tested. Narrative: Will re-assess met screen/VS closer to 08/2022. Dec Abilify d/t 2d6 re-trialing Wellbutrin for D/focus; r/b reviewed including FDA black box, seizures, HTN, activation. Will conduct research r/t limiting shifts to 8h and send letter provided this is appropriate at earliest availability. Support and encouragement provided. Follow-up scheduled during visit. Diagnosis: F31.81 Bipolar 2 disorder ([facility]) (primary encounter diagnosis) Plan : ARIPIPRAZOLE 10 MG TABLET - Take 1 Tablet by mouth once daily BUPROPION HCL XL 150 MG 24 HR TABLET, EXTENDED RELEASE - Take 1 Tablet by mouth every morning F90.0 Attention deficit hyperactivity disorder (ADHD), predominantly inattentive type Plan : BUPROPION HCL XL 150 MG 24 HR TABLET, EXTENDED RELEASE - Take 1 Tablet by mouth every morning R63.5,T50.905A Weight gain due to medication R25.9 Abnormal movements Plan : MIRTAZAPINE 15 MG TABLET - Take 1 Tablet by mouth nightly at bedtime Z79.899 Medication management F43.10 PTSD (post-traumatic stress disorder) Plan : MIRTAZAPINE 15 MG TABLET - Take 1 Tablet by mouth nightly at bedtime CLONIDINE HCL 0.2 MG TABLET - Take 1 Tablet by mouth every evening ARIPIPRAZOLE 10 MG TABLET - Take 1 Tablet by mouth once daily Orders Placed This Encounter Medications mirtazapine (REMERON) 15 mg tablet Sig: Take 1 Tablet by mouth nightly at bedtime Dispense: 30 Tablet Refill: 1 cloNIDine HCL (CATAPRES) 0.2 mg tablet Sig: Take 1 Tablet by mouth every evening Dispense: 30 Tablet Refill: 1 ARIPiprazole (ABILIFY) 10 mg tablet Sig: Take 1 Tablet by mouth once daily Dispense: 30 Tablet Refill: 1 buPROPion XL (WELLBUTRIN XL) 150 mg 24 hr tablet Sig: Take 1 Tablet by mouth every morning Dispense: 30 Tablet Refill: 1 No orders of the defined types were placed in this encounter. Plan: Follow-up: Return in about 4 weeks (around 09/11/2022). documented in this encounter [employer] Phone: documented as of this encounter (statuses as of 08/14/2022) [employer] Phone: [phone]) [phone] History of Past illness Narrative* Problem Noted Date Resolved Date Nightmares 10/26/2021 01/18/2022 Last Assessment & Plan: Having nightmares nightly Has woken up at 136 am every night this week Nightmares are related to historical trauma Has woken up with scratches and bruises on legs. Stared the discussion of prazosin yesterday. Discussed the risks and benefits of this medication. Continues to work with and has a psych appointment in December. Affirmed ongoing work and psych follow up. Will start prazosin. Pelvic pain 06/14/2021 01/18/2022 Last Assessment & Plan: Pain comes and goes, twisting pain on the right side Bleeding and spotting and cramping after intercourse Would like to have a hyst Will check hormone levels today [facility] [employer] referral Medication management 10/20/2020 01/18/2022 Other insomnia 09/14/2020 11/08/2020 Last Assessment & Plan: Has insomnia. Sleeping about 3 hours per night. Uses melatonin. Changing other medications today. Will see if getting better control of depression helps with insomnia. Has not tried vistaril before, and may help with sleep in the future. Depression 11/08/2020 Anxiety state 11/08/2020 documented as of this encounter (statuses as of 08/18/2022) [employer] Phone: [phone]) [phone] History of Past illness Narrative* Problem Noted Date Resolved Date Nightmares 10/26/2021 01/18/2022 Last Assessment & Plan: Having nightmares nightly Has woken up at 136 am every night this week Nightmares are related to historical trauma Has woken up with scratches and bruises on legs. Stared the discussion of prazosin yesterday. Discussed the risks and benefits of this medication. Continues to work with and has a psych appointment in December. Affirmed ongoing work and psych follow up. Will start prazosin. Pelvic pain 06/14/2021 01/18/2022 Last Assessment & Plan: Pain comes and goes, twisting pain on the right side Bleeding and spotting and cramping after intercourse Would like to have a hyst Will check hormone levels today [employer] referral Medication management 10/20/2020 01/18/2022 Other insomnia 09/14/2020 11/08/2020 Last Assessment & Plan: Has insomnia. Sleeping about 3 hours per night. Uses melatonin. Changing other medications today. Will see if getting better control of depression helps with insomnia. Has not tried vistaril before, and may help with sleep in the future. Depression 11/08/2020 Anxiety state 11/08/2020 documented as of this encounter (statuses as of 08/30/2022) [employer] Work Phone: [phone] History of Past illness Narrative* Problem Noted Date Diagnosed Date Resolved Date Nightmares 10/26/2021 01/18/2022 Last Assessment & Plan: Having nightmares nightly Has woken up at 136 am every night this week Nightmares are related to historical trauma Has woken up with scratches and bruises on legs. Stared the discussion of prazosin yesterday. Discussed the risks and benefits of this medication. Continues to work with and has a psych appointment in December. Affirmed ongoing work and psych follow up. Will start prazosin. Pelvic pain 06/14/2021 01/18/2022 Last Assessment & Plan: Pain comes and goes, twisting pain on the right side Bleeding and spotting and cramping after intercourse Would like to have a hyst Will check hormone levels today [employer] referral Medication management 10/20/20202021 Other insomnia 09/14/2020 11/08/2020 Last Assessment & Plan: Has insomnia. Sleeping about 3 hours per night. Uses melatonin. Changing other medications today. Will see if getting better control of depression helps with insomnia. Has not tried vistaril before, and may help with sleep in the future. Depression 11/08/2020 Anxiety state 11/08/2020 documented as of this encounter (statuses as of 09/18/2022) [employer] Phone: [phone]) [phone] History of Past illness Narrative* Problem Noted Date Diagnosed Date Resolved Date Nightmares 10/26/2021 01/18/2022 Last Assessment & Plan: Having nightmares nightly Has woken up at 136 am every night this week Nightmares are related to historical trauma Has woken up with scratches and bruises on legs. Stared the discussion of prazosin yesterday. Discussed the risks and benefits of this medication. Continues to work with and has a psych appointment in December. Affirmed ongoing work and psych follow up. Will start prazosin. Pelvic pain 06/14/2021 01/18/2022 Last Assessment & Plan: Pain comes and goes, twisting pain on the right side Bleeding and spotting and cramping after intercourse Would like to have a hyst Will check hormone levels today [employer] referral Medication management 10/20/20202021 Other insomnia 09/14/2020 11/08/2020 Last Assessment & Plan: Has insomnia. Sleeping about 3 hours per night. Uses melatonin. Changing other medications today. Will see if getting better control of depression helps with insomnia. Has not tried vistaril before, and may help with sleep in the future. Depression 11/08/2020 Anxiety state 11/08/2020 documented as of this encounter (statuses as of 09/21/2022) [employer] Phone: [phone]) [phone] History of Past illness Narrative* Problem Noted Date Diagnosed Date Resolved Date Nightmares 10/26/2021 01/18/2022 Last Assessment & Plan: Having nightmares nightly Has woken up at 136 am every night this week Nightmares are related to historical trauma Has woken up with scratches and bruises on legs. Stared the discussion of prazosin yesterday. Discussed the risks and benefits of this medication. Continues to work with and has a psych appointment in December. Affirmed ongoing work and psych follow up. Will start prazosin. Medication management 10/20/20202021 Other insomnia 09/14/2020 11/08/2020 Last Assessment & Plan: Has insomnia. Sleeping about 3 hours per night. Uses melatonin. Changing other medications today. Will see if getting better control of depression helps with insomnia. Has not tried vistaril before, and may help with sleep in the future. Depression 11/08/2020 Anxiety state 11/08/2020 documented as of this encounter (statuses as of 10/02/2022) [employer] Phone: [phone]) [phone] History of Past illness Narrative* Problem Noted Date Diagnosed Date Resolved Date Nightmares 10/26/2021 01/18/2022 Last Assessment & Plan: Having nightmares nightly Has woken up at 136 am every night this week Nightmares are related to historical trauma Has woken up with scratches and bruises on legs. Stared the discussion of prazosin yesterday. Discussed the risks and benefits of this medication. Continues to work with and has a psych appointment in December. Affirmed ongoing work and psych follow up. Will start prazosin. Medication management 10/20/20202021 Other insomnia 09/14/2020 11/08/2020 Last Assessment & Plan: Has insomnia. Sleeping about 3 hours per night. Uses melatonin. Changing other medications today. Will see if getting better control of depression helps with insomnia. Has not tried vistaril before, and may help with sleep in the future. Depression 11/08/2020 Anxiety state 11/08/2020 documented as of this encounter (statuses as of 10/24/2022) [employer] Phone: [phone] 536-962704-27-2022 History of Past illness Narrative* Problem Noted Date Diagnosed Date Resolved Date Nightmares 10/26/2021 01/18/2022 Last Assessment & Plan: Having nightmares nightly Has woken up at 136 am every night this week Nightmares are related to historical trauma Has woken up with scratches and bruises on legs. Stared the discussion of prazosin yesterday. Discussed the risks and benefits of this medication. Continues to work with and has a psych appointment in December. Affirmed ongoing work and psych follow up. Will start prazosin. Medication management 10/20/20202021 Other insomnia 09/14/2020 11/08/2020 Last Assessment & Plan: Has insomnia. Sleeping about 3 hours per night. Uses melatonin. Changing other medications today. Will see if getting better control of depression helps with insomnia. Has not tried vistaril before, and may help with sleep in the future. Depression 11/08/2020 Anxiety state 11/08/2020 documented as of this encounter (statuses as of 11/30/2022) [employer] Work Phone: [phone] History of Past illness Narrative* Problem Noted Date Diagnosed Date Resolved Date Nightmares 10/26/2021 01/18/2022 Last Assessment & Plan: Having nightmares nightly Has woken up at 136 am every night this week Nightmares are related to historical trauma Has woken up with scratches and bruises on legs. Stared the discussion of prazosin yesterday. Discussed the risks and benefits of this medication. Continues to work with and has a psych appointment in December. Affirmed ongoing work and psych follow up. Will start prazosin. Medication management 10/20/20202021 Other insomnia 09/14/2020 11/08/2020 Last Assessment & Plan: Has insomnia. Sleeping about 3 hours per night. Uses melatonin. Changing other medications today. Will see if getting better control of depression helps with insomnia. Has not tried vistaril before, and may help with sleep in the future. Depression 11/08/2020 Anxiety state 11/08/2020 documented as of this encounter (statuses as of 01/11/2023) [employer] Phone: [phone] History of Past illness Narrative* Problem Noted Date Diagnosed Date Resolved Date Nightmares 10/26/2021 01/18/2022 Last Assessment & Plan: Having nightmares nightly Has woken up at 136 am every night this week Nightmares are related to historical trauma Has woken up with scratches and bruises on legs. Stared the discussion of prazosin yesterday. Discussed the risks and benefits of this medication. Continues to work with and has a psych appointment in December. Affirmed ongoing work and psych follow up. Will start prazosin. Medication management 10/20/20202021 Other insomnia 09/14/2020 11/08/2020 Last Assessment & Plan: Has insomnia. Sleeping about 3 hours per night. Uses melatonin. Changing other medications today. Will see if getting better control of depression helps with insomnia. Has not tried vistaril before, and may help with sleep in the future. Depression 11/08/2020 Anxiety state 11/08/2020 documented as of this encounter (statuses as of 02/13/2023) [employer] Phone: [phone]) [phone] History of Past illness Narrative* Problem Noted Date Diagnosed Date Resolved Date Nightmares 10/26/2021 01/18/2022 Last Assessment & Plan: Having nightmares nightly Has woken up at 136 am every night this week Nightmares are related to historical trauma Has woken up with scratches and bruises on legs. Stared the discussion of prazosin yesterday. Discussed the risks and benefits of this medication. Continues to work with and has a psych appointment in December. Affirmed ongoing work and psych follow up. Will start prazosin. Medication management 10/20/20202021 Other insomnia 09/14/2020 11/08/2020 Last Assessment & Plan: Has insomnia. Sleeping about 3 hours per night. Uses melatonin. Changing other medications today. Will see if getting better control of depression helps with insomnia. Has not tried vistaril before, and may help with sleep in the future. Depression 11/08/2020 Anxiety state 11/08/2020 documented as of this encounter (statuses as of 04/20/2023) [employer] Phone: [phone] History of Past illness Narrative* Problem Noted Date Diagnosed Date Resolved Date Nightmares 10/26/2021 01/18/2022 Last Assessment & Plan: Having nightmares nightly Has woken up at 136 am every night this week Nightmares are related to historical trauma Has woken up with scratches and bruises on legs. Stared the discussion of prazosin yesterday. Discussed the risks and benefits of this medication. Continues to work with and has a psych appointment in December. Affirmed ongoing work and psych follow up. Will start prazosin. Medication management 10/20/20202021 Other insomnia 09/14/2020 11/08/2020 Last Assessment & Plan: Has insomnia. Sleeping about 3 hours per night. Uses melatonin. Changing other medications today. Will see if getting better control of depression helps with insomnia. Has not tried vistaril before, and may help with sleep in the future. Depression 11/08/2020 Anxiety state 11/08/2020 documented as of this encounter (statuses as of 05/18/2023) [employer] Phone: [phone] 110-529404-27-2022 History of Past illness Narrative* Problem Noted Date Diagnosed Date Resolved Date Nightmares 10/26/2021 01/18/2022 Last Assessment & Plan: Having nightmares nightly Has woken up at 136 am every night this week Nightmares are related to historical trauma Has woken up with scratches and bruises on legs. Stared the discussion of prazosin yesterday. Discussed the risks and benefits of this medication. Continues to work with and has a psych appointment in December. Affirmed ongoing work and psych follow up. Will start prazosin. Medication management 10/20/20202021 Other insomnia 09/14/2020 11/08/2020 Last Assessment & Plan: Has insomnia. Sleeping about 3 hours per night. Uses melatonin. Changing other medications today. Will see if getting better control of depression helps with insomnia. Has not tried vistaril before, and may help with sleep in the future. Depression 11/08/2020 Anxiety state 11/08/2020 documented as of this encounter (statuses as of 07/03/2023) [employer] Phone: [phone] History of Past illness Narrative* Problem Noted Date Diagnosed Date Resolved Date Nightmares 10/26/2021 01/18/2022 Last Assessment & Plan: Having nightmares nightly Has woken up at 136 am every night this week Nightmares are related to historical trauma Has woken up with scratches and bruises on legs. Stared the discussion of prazosin yesterday. Discussed the risks and benefits of this medication. Continues to work with and has a psych appointment in December. Affirmed ongoing work and psych follow up. Will start prazosin. Medication management 10/20/20202021 Other insomnia 09/14/2020 11/08/2020 Last Assessment & Plan: Has insomnia. Sleeping about 3 hours per night. Uses melatonin. Changing other medications today. Will see if getting better control of depression helps with insomnia. Has not tried vistaril before, and may help with sleep in the future. Depression 11/08/2020 Anxiety state 11/08/2020 documented as of this encounter (statuses as of 07/31/2023) [employer] Phone: [phone]) [phone] History of Past illness Narrative* Problem Noted Date Diagnosed Date Resolved Date Nightmares 10/26/2021 01/18/2022 Last Assessment & Plan: Having nightmares nightly Has woken up at 136 am every night this week Nightmares are related to historical trauma Has woken up with scratches and bruises on legs. Stared the discussion of prazosin yesterday. Discussed the risks and benefits of this medication. Continues to work with and has a psych appointment in December. Affirmed ongoing work and psych follow up. Will start prazosin. Medication management 10/20/20202021 Other insomnia 09/14/2020 11/08/2020 Last Assessment & Plan: Has insomnia. Sleeping about 3 hours per night. Uses melatonin. Changing other medications today. Will see if getting better control of depression helps with insomnia. Has not tried vistaril before, and may help with sleep in the future. Depression 11/08/2020 Anxiety state 11/08/2020 documented as of this encounter (statuses as of 08/08/2023) [employer] Phone: [phone]) [phone] History of Past illness Narrative* Problem Noted Date Diagnosed Date Resolved Date Nightmares 10/26/2021 01/18/2022 Last Assessment & Plan: Having nightmares nightly Has woken up at 136 am every night this week Nightmares are related to historical trauma Has woken up with scratches and bruises on legs. Stared the discussion of prazosin yesterday. Discussed the risks and benefits of this medication. Continues to work with and has a psych appointment in December. Affirmed ongoing work and psych follow up. Will start prazosin. Medication management 10/20/20202021 Other insomnia 09/14/2020 11/08/2020 Last Assessment & Plan: Has insomnia. Sleeping about 3 hours per night. Uses melatonin. Changing other medications today. Will see if getting better control of depression helps with insomnia. Has not tried vistaril before, and may help with sleep in the future. Depression 11/08/2020 Anxiety state 11/08/2020 documented as of this encounter (statuses as of 09/06/2023) [employer] Phone: Evaluation + Plan note No data available for this section [facility] Evaluation note* Diagnosis Bipolar 2 disorder ([facility])- Primary Other bipolar disorders Attention deficit hyperactivity disorder (ADHD), predominantly inattentive type Weight gain due to medication Other symptoms concerning nutrition, metabolism, and development Abnormal movements Medication management Encounter for long-term (current) use of other medications PTSD (post-traumatic stress disorder) Posttraumatic stress disorder documented in this encounter [employer] Phone: Evaluation note* Diagnosis Obesity, Class III, BMI 40-49.9 (morbid obesity) ([facility])- Primary Morbid obesity Prediabetes Other abnormal glucose documented in this encounter [employer] Phone: Evaluation note* Diagnosis Bipolar 2 disorder ([facility])- Primary Other bipolar disorders Attention deficit hyperactivity disorder (ADHD), predominantly inattentive type PTSD (post-traumatic stress disorder) Posttraumatic stress disorder Abnormal movements History of suicide attempt Personal history of other mental disorder Weight gain due to medication Other symptoms concerning nutrition, metabolism, and development Medication management Encounter for long-term (current) use of other medications documented in this encounter [employer] Phone: Evaluation note* Diagnosis Preop examination- Primary Preoperative examination, unspecified Gender dysphoria Gender identity disorder in children Prediabetes Other abnormal glucose Smoking Tobacco use disorder Weight gain due to medication Other symptoms concerning nutrition, metabolism, and development Acne vulgaris Other acne Pelvic pain Reserved for inherently not codable concepts WITHOUT codable children documented in this encounter [employer] Phone: Evaluation note* Diagnosis PTSD (post-traumatic stress disorder) Posttraumatic stress disorder Bipolar 2 disorder ([facility]) Other bipolar disorders Attention deficit hyperactivity disorder (ADHD), predominantly inattentive type documented in this encounter [employer] Phone: Evaluation note* Diagnosis PTSD (post-traumatic stress disorder)- Primary Posttraumatic stress disorder Bipolar 2 disorder ([facility]) Other bipolar disorders R/o Schizoaffective disorder, bipolar type ([facility]) Schizoaffective disorder, unspecified condition Attention deficit hyperactivity disorder (ADHD), predominantly inattentive type documented in this encounter [employer] Phone: Evaluation note* Diagnosis Bipolar 2 disorder (HCC-CMS)- Primary Other bipolar disorders R/o Schizoaffective disorder, bipolar type (HCC-CMS) Schizoaffective disorder, unspecified condition Attention deficit hyperactivity disorder (ADHD), predominantly inattentive type PTSD (post-traumatic stress disorder) Posttraumatic stress disorder Insomnia disorder, persistent, with mental disorder documented in this encounter [employer] Phone: Evaluation note* Diagnosis R/o Bipolar 2 disorder (HCC-CMS)- Primary Other bipolar disorders R/o Schizoaffective disorder, bipolar type (HCC-CMS) Schizoaffective disorder, unspecified condition Attention deficit hyperactivity disorder (ADHD), predominantly inattentive type PTSD (post-traumatic stress disorder) Posttraumatic stress disorder documented in this encounter [employer] Phone: Evaluation note* Diagnosis Gender dysphoria- Primary Gender identity disorder in children documented in this encounter [employer] Phone: Evaluation note* Diagnosis Sore throat- Primary Acute pharyngitis [facility] Schizoaffective disorder, bipolar type (HCC-CMS)- Primary Schizoaffective disorder, unspecified condition Attention deficit hyperactivity disorder (ADHD), predominantly inattentive type PTSD (post-traumatic stress disorder) Posttraumatic stress disorder documented in this encounter [employer] Phone: Evaluation note* Diagnosis Gender dysphoria- Primary Gender identity disorder in children Acne vulgaris Other acne Prediabetes Other abnormal glucose Screening for thyroid disorder Obesity, Class III, BMI 40-49.9 (morbid obesity) ([facility]) Morbid obesity Transaminitis Nonspecific elevation of levels of transaminase or lactic acid dehydrogenase (LDH) documented in this encounter [employer] Phone: Evaluation note* Diagnosis Elevated liver enzymes- Primary Other nonspecific abnormal serum enzyme levels Diarrhea, unspecified type Prediabetes Other abnormal glucose Obesity, Class III, BMI 40-49.9 (morbid obesity) ([facility]) Morbid obesity Gender dysphoria Gender identity disorder in children Screening for ischemic heart disease Pelvic pain Reserved for inherently not codable concepts WITHOUT codable children documented in this encounter [employer] Phone: Evaluation note* Diagnosis Nausea and vomiting, unspecified vomiting type- Primary [facility] Schizoaffective disorder, bipolar type ([facility])- Primary Schizoaffective disorder, unspecified condition Attention deficit hyperactivity disorder (ADHD), predominantly inattentive type PTSD (post-traumatic stress disorder) Posttraumatic stress disorder Insomnia disorder, persistent, with mental disorder Generalized anxiety disorder documented in this encounter [employer] Phone: Summary Purpose Family History No Family History Records FoundNo Family History Records FoundNo Family History Records Found No data available for this section No Family History Records FoundNo Family History Records Found No data available for this section No Family History Records FoundNo Family History Records Found Advance Directives No Advanced Directives Records FoundNo Advanced Directives Records FoundNo Advanced Directives Records FoundNo Advanced Directives Records FoundNo Advanced Directives Records FoundNo Advanced Directives Records FoundNo Advanced Directives Records Found Health Concerns Assessment Noted Time PHQ-9 Depression Total Score: 21 07/25/2 023 1:59 PM PST Assessment Noted Time PHQ-9 Depression Total Score: 21 07/25/2 023 1:59 PM PST Assessment Noted Time PHQ-9 Depression Total Score: 20 023 2:11 PM PDT Assessment Noted Time PHQ-9 Depression Total Score: 0 05/17/20 23 10:52 AM PST Assessment Noted Time PHQ-9 Depression Total Score: 0 05/17/20 23 10:52 AM PST Assessment Noted Time PHQ-9 Depression Total Score: 0 08/08/19 24 11:02 AM PST Reason for Referral Specialty Diagnoses / Procedures Referred By Contac t Referred To Contact Diagnoses Obesity, Class III, BMI 40-49.9 (morbid obesity) ([facility]) Prediabetes Annamaria Healy PA [address] [place] [address] Referral ID Status Reason Start Date Expiration Date Visits Re quested Visits Authorized [id number] Closed 1 1 Specialty Diagnoses / Procedures Referred By Contac t Referred To Contact Diagnoses Obesity, Class III, BMI 40-49.9 (morbid obesity) ([facility]) Margarita Kelly, MANAGER [place],SUPPORT REPRESENTATIVE [address] [facility] [address] [place] [id number] Referral ID Status Reason Start Date Expiration Date Visits Requested Visits Authorized [id number] New Request Specialty Services Required 07/27/2023 07/26/2024 1 1 Specialty Diagnoses / Procedures Referred By Contac t Referred To Contact Diagnoses Gender dysphoria CyrusMargarita briceño APRN,SUPPORT REPRESENTATIVE [address] [facility] [address] [place] [address] Referral ID Status Reason Start Date Expiration Date V isits Requested Visits Authorized [id number] Pending Review 1 1 Specialty Diagnoses / Procedures Referred By Contac t Referred To Contact Diagnoses Prediabetes Obesity, Class III, BMI 40-49.9 (morbid obesity) ([facility]) Andrew Turpin APRN,SUPPORT REPRESENTATIVE [address] [place] [address] Referral ID Status Reason Start Date Expiration Date V isits Requested Visits Authorized [id number] Pending Review 1 1 Specialty Diagnoses / Procedures Referred By Contac t Referred To Contact Gastroenterology Diagnoses Diarrhea, unspecified type Andrew Turpin APRN,SUPPORT REPRESENTATIVE [address] [place] [address] Referral ID Status Reason Start Date Expiration Date Visits Requested Visits Authorized [id number] New Request Specialty Services Required 08/08/2023 08/07/[address] Alexsander Perez MD in [place] Specialty Diagnoses / Procedures Referred By Contac t Referred To Contact Sleep Medicine - Psych/Neurology Diagnoses Insomnia disorder, persistent, with mental disorder Ajit Paulino APRN [address] [place] [address] Referral ID Status Reason Start Date Expiration Date Visits Requested Visits Authorized [id number] New Request Specialty Services Required 09/06/2023 09/05/2024 1 1 Comments Pt has never had sleep study and reports extremely poor sleep initiation and maintenance despite being on several highly sedating psych meds Additional Source Comments INFORMATION SOURCE (unrecogn ized section and content) DATE CREATED AUTHOR AUTHOR'S ORGANIZ ATION 10/08/2022 [facility] DATE CREATED AUTHOR AUTHOR'S ORGANIZ ATION 10/17/2022 [facility] DATE CREATED AUTHOR AUTHOR'S ORGANIZ ATION 09/03/2023 [facility] DATE CREATED AUTHOR AUTHOR'S ORGANIZ ATION 09/03/2023 [facility] DATE CREATED AUTHOR AUTHOR'S ORGANIZ ATION 09/07/2023 [facility] DATE CREATED AUTHOR AUTHOR'S ORGANIZ ATION 09/08/2023 [facility] ([place]) Reason for Visit (unrecogniz ed section and content) Reason Comments Health Maintenance Meds for pre-diabete sPt states Wellbutrin is causing fatigue, feels like a zombie Reason Comments Pre-operative Exam Reason Onset Date Comments Pelvic Pain 10/07/2022 Reason Comments Anxiety Follow Up Medication Management Transfer from [facility] ZACARIAS Lynch Reason Comments Bipolar Disorder Follow Up Medication Management Reason Comments Medication Management Testerone check up /refills Reason Comments Sore Throat Hoarse voice, bodyac hes, chills and sweats x3 days Reason Comments Psychosis Mood Disorder Follow Up Medication Management Reason Comments Lab Work Needed Weight Loss Pt would like to dis cuss weight loss Reason Comments [facility] F/u from last visit and wants to talk about the med that he is on Reason Comments Nausea & Vomiting X 8 days Reason Comments Psychosis Follow Up Medication Management Care Teams (unrecognized sec tion and content) Staple Cutter Relationship Specialty Start Date End Date Annamaria Healy PA [address] [id number] PCP - General [facility] 01/18/22 Staple Cutter Relationship Specialty Start Date End Date Annamaria Healy PA [address] [place] [address] PCP - General [facility] 01/18/22 Staple Cutter Relationship Specialty Start Date End Date Annamaria Healy PA [address] [place] [address] PCP - General [facility] 01/18/22 Staple Cutter Relationship Specialty Start Date End Date Annamaria Healy PA [address] [place] [address] PCP - General [facility] 01/18/22 Staple Cutter Relationship Specialty Start Date End Date Annamaria Healy PA [address] [place] [address] PCP - General [facility] 01/18/22 Staple Cutter Relationship Specialty Start Date End Date Roma Healy [address] [address] PCP - General Pediatrics 09/21/22 Staple Cutter Relationship Specialty Start Date End Date Annamaria Healy PA [address] [place] [address] PCP - General [facility] 01/18/22 Staple Cutter Relationship Specialty Start Date End Date Annamaria Healy PA [address] [place] [address] PCP - General [facility] 01/18/22 Staple Cutter Relationship Specialty Start Date End Date Annamaria Healy PA [address] [place] [address] PCP - General [facility] 01/18/22 Staple Cutter Relationship Specialty Start Date End Date Annamaria Healy PA [address] [place] [address] PCP - General [facility] 01/18/22 Staple Cutter Relationship Specialty Start Date End Date Annamaria Healy PA [address] [place] [address] PCP - General [facility] 01/18/22 Staple Cutter Relationship Specialty Start Date End Date Annamaria Healy PA [address] [id number] PCP - General [facility] 01/18/22 Staple Cutter Relationship Specialty Start Date End Date Annamaria Healy PA [address] [id number] PCP - General [facility] 01/18/22 Staple Cutter Relationship Specialty Start Date End Date Andrew Turpin APRN,SUPPORT REPRESENTATIVE [address] [facility] [address] [place] [address] PCP - General [employer] PREASSEMBLER Nurse Practitioner 08/29/23 Source Comments (unrecognize d section and content) In the event this informatio n is protected by the Federal Confidentiality of Alcohol and Drug Abuse Patient Records regulations: The Federal rules restrict any use of the information to criminally investigate or prosecute any alcohol or drug abuse patient.[facility] event this information is protected by the Federal Confidentiality of Alcohol and Drug Abuse Patient Records regulations: The Federal rules restrict any use of the information to criminally investigate or prosecute any alcohol or drug abuse patient.[facility] FOR RECORDS PERTAINING TO PATIENTS WHO ARE OR HAVE BEEN ENROLLED IN A CHEMICAL DEPENDENCY/SUBSTANCEABUSE PROGRAM, SOME INFORMATION MAY BE OMITTED. This clinical summary was aggregated from multiple sources. Caution should be exercised in using it in the provision of clinical care. This summary normalizes information from multiple sources, and as a consequence, information in this document may materially change the coding, format and clinical context of patient data. In addition, data may be omitted in some cases. CLINICAL DECISIONS SHOULD BE BASED ON THE PRIMARY CLINICAL RECORDS. [facility] [employer] [facility]. provides no warranty or guarantee of the accuracy or completeness of information in this document.
== END 2023-09-12 21:31 | disposition home or self-care (01) ==
PROVIDERS: Emergency Provider Emergency Medicine; Visit Provider Emergency Medicine
DX: R51.9 Headache, unspecified (principal); F31.9 Bipolar disorder, unspecified; Z79.4 Long term (current) use of insulin; R11.2 Nausea with vomiting, unspecified; Z86.16 Personal history of COVID-19; Z79.899 Other long term (current) drug therapy; Z79.84 Long term (current) use of oral hypoglycemic drugs; J45.909 Unspecified asthma, uncomplicated; F41.9 Anxiety disorder, unspecified; F32.A Depression, unspecified; F90.9 Attention-deficit hyperactivity disorder, unspecified type; E66.9 Obesity, unspecified; F43.10 Post-traumatic stress disorder, unspecified
CPT/HCPCS: 70450; 80053; 81001; 81025; 83690; 85025; 87086; 87088; 96361; 96374; 96375; 99282; J7030; A4216

== ENCOUNTER → 2025-03-24 | Outpatient (CLI) | payer OTHER, SELFPAY ==
[2025-03-24 19:04] LABS: Barbiturate Urine NEGATIVE (< 200 ng/mL); Benzodiazepine Urine NEGATIVE (< 200 ng/mL); PCP Urine NEGATIVE (< 25 ng/mL); THC Urine NEGATIVE (< 50 ng/mL)
== END | disposition home or self-care (01) ==
PROVIDERS: Referring Provider Internal Medicine Pulmonary Disease; Visit Provider Internal Medicine Pulmonary Disease
DX: G47.10 Hypersomnia, unspecified (principal)
CPT/HCPCS: 80307

== ENCOUNTER 2025-06-09 19:10 | Emergency (ER) | payer OTHER, SELFPAY ==
[2025-06-09 19:11] VITALS: BP 121/67; PULSE 130; RESP 18; TEMP 36.2; O2SAT 100; BMI 25.9
--- NOTE | 2025-06-09 19:16 | EKG12_ITS ---
Test Reason : HR Blood Pressure : */* mmHG Vent. Rate : 122 BPM Atrial Rate : 122 BPM P-R Int : 144 ms QRS Dur : 82 ms QT Int : 306 ms P-R-T Axes : 65 56 43 degrees QTcB Int : 436 ms Sinus tachycardia Otherwise normal ECG Confirmed by SATURNINO AJ, MARSHA ([id number]), news editor FRANCISCO DE LA CRUZ ([id number]) on 06/15/2025 6:17:58 AM Referred By: Confirmed By: MARSHA MATAMOROS MD
[2025-06-09 19:36] VITALS: BP 100/69; BP 114/71; BP 118/62; PULSE 104; PULSE 118; PULSE 135
[2025-06-09 19:36] LABS: Hematocrit 43.8 % (37-47); Hemoglobin 14.9 g/dL (12.0-15.0); Immature Granulocytes Count 0.020 X10^3/uL (0.0-0.0); Mean Corp Hgb Conc 34.0 g/dL (32-36); Mean Corpuscular Volume 86.7 fL (81-99); Mean Platelet Vol. 9.2 fl (6.2-12.0); NRBC Flagged by Analyzer 0 % (0-5); Platelet Count 308 K/mm3 (150-450); RBC Distribution Width CV 13.3 % (11.6-14.6); RBC Distribution Width SD 41.7 fl (35.1-43.9); Red Blood Count 5.05 M/mm3 (4.2-5.4); White Blood Count 9.2 K/mm3 (4.4-11.0)
--- NOTE | 2025-06-09 19:40 | RAD_ITS ---
PROCEDURE: CHEST PA AND LATERAL 06/09/2025 REASON FOR EXAM: CHEST PAIN TECHNIQUE: Procedure Code: RADCXR Modality: DX Procedure: CHEST PA AND LATERAL COMPARISON: 02/22/2023 FINDINGS: Lungs/Pleura: Clear. Heart/Mediastinum: Normal in size. Bones/Soft tissues: Minimal degenerative changes of the spine. RAD/Chest PA and Lateral IMPRESSION: No acute cardiopulmonary disease. Reading Location: [id number]
[2025-06-09] MEDS: 0.9% Normal Saline (1000mL) 1,000 ML 999 ML IV ×2 (19:48→20:41)
--- OUTSIDE RECORDS SUMMARY | 2025-06-09 19:49 | XMS RPT_ITS | CCD ---
Author Organization [facility] Care Team Providers Care Mobile Application Architect Name Role Phone TONIE CRUZ MD Unavailable Unavailable TONIE CRUZ MD Unavailable Unavailable TONIE CRUZ MD Unavailable Unavailable Annamaria Perry Primary Care Provider Annamaria Perry Primary Care Provider Roma Healy Primary Care Provider [phone] PHYSICIAN, NOT RECORDED Primary Care Physician Annamaria Flood Primary Care Provider Unavailable Primary Care Provider Unavailrona Turpin APRN,Andrew JUNG Primary Care Provider PHYSICIAN, NOT RECORDED Primary Care Unavaila FIDEL Beyer DO Attending Unavailable MILES AJ, DR MAINE Larson Attending Unavailable PHYSICIAN, NOT RECORDED Primary Care Unavaila ANDREW Arce Referring Unavailable ANDREW TURPIN Primary Care Unavailable ANDREW TURPIN Admitting Unavailable SHAHEID, NISHAD MOHAMED Attending Unavaila ble SHAHEIMegha, NISHAD MOHAMED Attending Unavaila ANDREW Arce Primary Care Unavailable SHAHEID, NISHAD MOHAMED Referring Unavaila ble SHAHEID, NISHAD MOHAMED Attending Unavaila ANDREW Arce Primary Care Unavailable ANDREW TURPIN Primary Care Unavailable SHAHALFREDITOD, NISHAD MOHAMED Attending Unavaila ANDREW Arce Primary Care Unavailable SHAHEID, NISHAD MOHAMED Referring Unavaila ble SHAHEID, NISHAD MOHAMED Attending Unavaila JOSE CRUZ Humphrey Admitting Unavailable JOSE CRUZ GARCIA Attending Unavailable JOSE CRUZ GARCIA Primary Care Unavailable Álvaro Mosquera V Attending Unavailable JAIME DAYRON Primary Care Unavailable Álvaro Mosquera V Referring Unavailable DAYRON SANDOVAL Referring Unavailable DAYRON SANDOVAL Attending Unavailable DAYRON SANDOVAL Primary Care Unavailable AJIT PAULINO Admitting Unavailable AJIT PAULINO Attending Unavailable AJIT PAULINO Consulting Unavailable ANDREW TURPIN Primary Care Unavailable Allergies Allergy Classification Reported Allergen(s) Allergy Type Date of Onset Reaction(s) Facility (3 sources) Adhesive Tape; Translations: [adhesive tape] Propensity to adverse reactions 2 [facility] (20 sources) QUEtiapine; Translations: [quetiapine] Drug Allergy 8 Other: See Comments [facility] Phone: (20 sources) Sertraline; Translations: [sertraline] Drug Allergy 8 Other (See Comments) [facility] (20 sources) Acetaminophen / oxyCODONE; Translations: [acetaminophen-ox ycodone] Drug Allergy 2 Nausea and Vomiting, GI Upset, Rash [facility] Phone: (20 sources) oxyCODONE; Translations: [OXYCODONE] Drug Allergy 2 Rash [facility] Phone: (20 sources) Sertraline; Translations: [SERTRALINE HCL] Drug Allergy 8 Other: See Comments [facility] Phone: (20 sources) atomoxetine Drug Allergy 4 [facility] Phone: (20 sources) ADHESIVE TAPE-SILICONES; Translations: [ADHESIVE TAPE-SILICONES] Propensity to adverse reactions to drug (disorder) 4 Rash [facility] Repository (1 source) Acetaminophen / oxyCODONE Drug Allergy [facility] Repository (1 source) QUEtiapine Drug Allergy [facility] Rep[facility] (1 source) Sertraline Drug Allergy [facility] Rep[facility] (1 source) Acetaminophen Drug Allergy 4 [facility] Rep[facility] (1 source) atomoxetine Drug Allergy 4 [facility] Rep[facility] (1 source) oxyCODONE Drug Allergy 4 [facility] Rep[facility] (1 source) QUEtiapine Drug Allergy 4 [facility] Rep[facility] (1 source) Sertraline Drug Allergy 4 [facility] Repository Medications Current Medications Medication Drug Class(es) Dates Sig (Normalized) Sig (Original) acetaminophen 325 mg oral tablet (2 sources) Start: 11-18-2021 Acetaminophen (Tylenol) 325 mg Tablet Active 1000 MG PO EVERY 6 HOURS November 18, 2021 12:00am acetaminophen 325 mg / butalbital 50 mg / caffeine 40 mg oral capsule (5 sources) Barbiturate, Central Nervous System Stimulant, Methylxanthine Start: 10-08-2023 End: 01-23-2024 take 1 capsule by mouth twice daily butalbital-acetamino phen-caff 50-325-40 mg per capsule Indications: Intractable chronic migraine with aura with status migrainosus Take 1 Capsule by mouth 2 (two) times daily 60 Capsule 10/08/2023 01/23/2024 Discontinued (Cancelled) Comment on above: Take 1 Capsule by [facility] 2 (two) times daily acetaminophen 325 mg / HYDROcodone bitartrate 5 mg oral tablet (3 sources) Opioid Agonist Start: 10-16-2022 End: 01-11-2023 HYDROcodone-acetamin ophen (NORCO) 5-325 mg per tablet [id number] 200 actuat albuterol 0.09 mg/actuat metered dose inhaler (2 sources) beta2-Adrenergic Agonist Start: 11-18-2021 Albuterol Sulfate (Ventolin Hfa) 90 mcg/actuation Hfa Aerosol Inhaler Active 1 INH INHALATION EVERY 6 HOURS November 18, 2021 12:00am ARIPiprazole 15 mg oral tablet (18 sources) Atypical Antipsychotic Start: 02-14-2023 End: 04-20-2023 take 1 tablet by mouth once daily ARIPiprazole (ABILIFY) 15 mg tablet Indications: Bipolar 2 disorder (HCC-CMS) , Schizoaffective disorder, bipolar type (HCC-CMS) , PTSD (post-traumatic stress disorder) Take 1 Tablet by mouth once daily 30 Tablet 1 04/03/2023 04/20/2023 Discontinued (Patient preference) Start: 02-13-2023 take 1 tablet by [facility] once daily ARIPiprazole (ABILIFY) 15 mg tablet Indications: Bipolar 2 disorder (HCC-CMS) , PTSD (post-traumatic stress disorder) , Schizoaffective disorder, bipolar type (HCC-CMS) Take 1 Tablet by mouth once daily 30 Tablet 1 02/13/2023 Active Start: 01-11-2023 End: 02-13-2023 take 1 tablet by mouth once daily ARIPiprazole (ABILIFY) 15 mg tablet Indications: PTSD (post-traumatic stress disorder) , Bipolar 2 disorder (HCC-CMS) , Schizoaffective disorder, bipolar type (HCC-CMS) Take 1 Tablet by mouth once daily 30 Tablet 1 01/11/2023 02/13/2023 Discontinued (Reorder) Start: 01-04-2023 End: 01-11-2023 take 1 tablet by mouth once daily ARIPiprazole (ABILIFY) 10 mg tablet Indications: PTSD (post-traumatic stress disorder) , Bipolar 2 disorder (HCC-CMS) Take 1 Tablet by mouth once daily 30 Tablet 1 01/04/2023 01/11/2023 Discontinued (Quantity/Dosage and/or Sig change) Start: 08-14-2022 End: 10-24-2022 take 1 tablet by mouth once daily ARIPiprazole (ABILIFY) 10 mg tablet Indications: PTSD (post-traumatic stress disorder) , Bipolar 2 disorder (HCC-CMS) Take 1 Tablet by mouth once daily 30 Tablet 1 10/24/2022 Active Start: 07-20-2022 End: 08-14-2022 take 1 tablet by mouth once daily ARIPiprazole (ABILIFY) 20 mg tablet Indications: Bipolar 2 disorder (HCC-CMS) , PTSD (post-traumatic stress disorder) Take 1 Tablet by mouth once daily 30 Tablet 1 07/20/2022 08/14/2022 Discontinued (Therapy completed/Not needed) Comment on above: Take 1 Tablet by patel once daily 24 hr buPROPion hydrochloride 150 mg extended release oral tablet (20 sources) Aminoketone Start: 05-13-20 End: 03-16-20 take 1 tablet by mouth once daily buPROPion XL (WELLBUTRIN XL) 150 mg 24 hr tablet Indications: Schizoaffective disorder, bipolar type (CMS & HHS-HCC) , PTSD (post-traumatic stress disorder) , Attention deficit hyperactivity disorder (ADHD), predominantly inattentive type Take 1 Tablet by mouth daily. 30 Tablet 02/24/2025 03/16/2025 Discontinued (Therapy completed/Not needed) Start: 03-18-2024 take 1 tablet by patel th once daily buPROPion XL (WELLBUTRIN XL) 150 mg 24 hr tablet Indications: Schizoaffective disorder, bipolar type (HCC-CMS) , Attention deficit hyperactivity disorder (ADHD), predominantly inattentive type , PTSD (post-traumatic stress disorder) Take 1 Tablet by mouth daily. 30 Tablet 1 03/18/2024 Active Start: 06-01-2023 take 1 tablet by patel th every hour buPROPion XL (WELLBUTRIN XL) 150 mg 24 hr tablet Take 1 tablet by mouth every afternoon. 0 06/01/2023 Active Start: 04-03-2023 End: 05-13-2024 take 1 tablet by mouth once daily buPROPion XL (WELLBUTRIN XL) 150 mg 24 hr tablet Indications: Schizoaffective disorder, bipolar type (HCC-CMS) , Attention deficit hyperactivity disorder (ADHD), predominantly inattentive type , PTSD (post-traumatic stress disorder) Take 1 Tablet by mouth daily. 30 Tablet 1 05/13/2024 Active Start: 02-14-2023 take 1 tablet by patel th every hour, then take 1 tablet by mouth once daily buPROPion 300 mg/24 hours (XL) oral tablet, extended release Dose : 300 mg = 1 tab(s), Oral, qDay, # 30 tab(s), 0 Refill(s) Start Date: 02/14/23 Status: Ordered Start: 02-13-2023 take 1 tablet by patel th once daily buPROPion HCL (WELLBUTRIN XL) 300 mg 24 hr tablet Indications: Bipolar 2 disorder (HCC-CMS) , Attention deficit hyperactivity disorder (ADHD), predominantly inattentive type , PTSD (post-traumatic stress disorder) , Schizoaffective disorder, bipolar type (HCC-CMS) Take 1 Tablet by mouth daily. 30 Tablet 1 02/13/2023 Active Start: 01-04-2023 End: 02-13-2023 take 1 tablet by mouth once daily buPROPion HCL (WELLBUTRIN XL) 300 mg 24 hr tablet Indications: PTSD (post-traumatic stress disorder) , Bipolar 2 disorder (HCC-CMS) , Attention deficit hyperactivity disorder (ADHD), predominantly inattentive type , Schizoaffective disorder, bipolar type ([facility]-CMS) Take 1 Tablet by mouth daily. 30 Tablet 1 01/11/2023 02/13/2023 Discontinued (Reorder) Start: 09-21-2022 End: 10-24-2022 take 1 tablet by mouth once daily buPROPion HCL (WELLBUTRIN XL) 300 mg 24 hr tablet Indications: Bipolar 2 disorder (HCC-CMS) , Attention deficit hyperactivity disorder (ADHD), predominantly inattentive type Take 1 Tablet by mouth daily. 30 Tablet 1 10/24/2022 Active Start: 08-14-2022 End: 09-21-2022 take 1 tablet by mouth once daily in the morning buPROPion XL (WELLBUTRIN XL) 150 mg 24 hr tablet Indications: Bipolar 2 disorder (HCC-CMS) , Attention deficit hyperactivity disorder (ADHD), predominantly inattentive type Take 1 Tablet by mouth every morning 30 Tablet 1 08/14/2022 09/21/2022 Discontinued (Ineffective therapy) Comment on above: Take 1 Tablet by patel th every morning Take 1 Tablet by patel th once daily Take 1 Tablet by patel th daily. Take 1 tablet by patel th every afternoon. Take 1 Tablet by patel th daily clonazePAM 2 mg oral tablet (8 sources) Benzodiazepine Start: 03-18-20 End: 04-22-20 take 1 tablet by mouth once daily as needed for anxiety clonazePAM (KLONOPIN) 2 mg tablet Indications: Generalized anxiety disorder Take 1 Tablet by mouth once daily as needed for anxiety 15 Tablet 1 03/18/2024 04/22/2024 Discontinued (Therapy completed/Not needed) Start: 12-31-2023 End: 03-18-2024 take 1 tablet by mouth once daily as needed for anxiety clonazePAM (KLONOPIN) 1 mg tablet Indications: Generalized anxiety disorder Take 1 Tablet by mouth once daily as needed for anxiety 15 Tablet 01/28/2024 03/18/2024 Discontinued (Quantity/Dosage and/or Sig change) Comment on above: Take 1 Tablet by patel th once daily as needed for anxiety cloNIDine hydrochloride 0.2 mg oral tablet (20 sources) Central alpha-2 Adrenergic Agonist Start: 3 End: take 1 tablet by mouth once daily in the evening cloNIDine HCL (CATAPRES) 0.2 mg tablet Indications: PTSD (post-traumatic stress disorder) Take 1 Tablet by mouth every evening 30 Tablet 1 07/03/2023 09/06/2023 Discontinued (Therapy completed/Not needed) Start: 07-20-2022 End: 10-24-2022 take 1 tablet by mouth once daily in the evening cloNIDine HCL (CATAPRES) 0.2 mg tablet Indications: PTSD (post-traumatic stress disorder) Take 1 Tablet by mouth every evening 30 Tablet 1 10/24/2022 Active Comment on above: Take 1 Tablet by patel every evening Take 0.2 mg by mouth daily at bedtime. doxycycline hyclate 100 mg oral capsule (20 sources) Tetracycline-clas s Drug Start: 12-25-2022 End: 01-23-2024 take 1 capsule by mouth once daily doxycycline (VIBRAMYCIN) 100 mg capsule Indications: Acne vulgaris Take 1 Capsule by mouth once daily 90 Capsule 1 07/27/2023 01/23/2024 Discontinued (Cancelled) Start: 06-02-2022 End: 09-28-2022 take 1 capsule by mouth twice daily doxycycline (VIBRAMYCIN) 100 mg capsule Indications: Acne vulgaris Take 1 Capsule by mouth 2 (two) times daily 60 Capsule 0 09/28/2022 Active Comment on above: Take 1 Capsule by mo ut 2 (two) times daily Take 1 capsule by mo ut twice daily Take 1 Capsule by mo ut once daily Take 1 capsule by mo ut once daily. escitalopram 20 mg oral tablet (2 sources) Serotonin Reuptake Inhibitor Start: 11-19-19 take 1 tablet by mouth at bedtime Escitalopram Oxalate (Lexapro) 20 mg Tablet Active 20 MG PO AT BEDTIME November 18, 2021 12:00am hydrOXYzine pamoate 25 mg oral capsule (3 sources) Antihistamine Start: 01-05-20 End: 01-12-20 23 take 1 capsule by mouth three times daily hydrOXYzine pamoate (VISTARIL) 25 mg capsule Indications: PTSD (post-traumatic stress disorder) Take 1-2 cap by mouth up to three times a day for anxiety, Four hours apart. 180 Capsule 1 01/04/2023 01/11/2023 Discontinued (Ineffective therapy) Start: 10-24-2022 take 1 capsule by mo uth three times daily as needed for anxiety hydrOXYzine pamoate (VISTARIL) 25 mg capsule Indications: PTSD (post-traumatic stress disorder) Take 1 Capsule by mouth 3 (three) times daily as needed for anxiety Four hours apart 90 Capsule 1 10/24/2022 Active Comment on above: Take 1 Capsule by mo uth 3 (three) times daily as needed for anxiety Four hours apart Take 1-2 cap by mout h up to three times a day for anxiety, Four hours apart. ibuprofen 800 mg oral tablet (2 sources) Nonsteroidal Anti-inflammatory Drug Start: take 800 mg by mouth every eight hours Ibuprofen Active 800 MG PO Q8H November 18, 2021 12:00am oxyCODONE hydrochloride 5 mg oral tablet (2 sources) Opioid Agonist Start: take 5 mg by mouth every six hours as needed Oxycodone Active 5 MG PO EVERY 6 HOURS NEEDED 18 11January 12, 2022 OZEMPIC 0.25 mg or 0.5 mg (2 mg/3 mL) pen injector (6 sources) Start: End: inject 0.5 mg by subcutaneous injection every week OZEMPIC 0.25 mg or 0.5 mg (2 mg/3 mL) pen injector Indications: Prediabetes , Obesity, Class III, BMI 40-49.9 (morbid obesity) ([facility]) INJECT 0.5 MG SUBCUTANEOUSLY ONCE A WEEK 3 mL 01/07/2024 01/23/2024 Discontinued (Cancelled) Start: 12-10-2023 inject 0.5 mg by sub cutaneous injection every week OZEMPIC 0.25 mg or 0.5 mg (2 mg/3 mL) pen injector Indications: Prediabetes , Obesity, Class III, BMI 40-49.9 (morbid obesity) ([facility]) INJECT 0.5 MG SUBCUTANEOUSLY ONCE A WEEK 3 mL 12/10/2023 Active Start: 08-30-2023 End: 10-08-2023 OZEMPIC 0.25 mg or 0.5 mg (2 mg/3 mL) pen injector Indications: Prediabetes , Obesity, Class III, BMI 40-49.9 (morbid obesity) ([facility]) INJECT 0.5 MG INTO THE SKIN ONCE A WEEK 3 mL 08/30/2023 10/08/2023 Discontinued (Reorder) Start: 08-30-2023 OZEMPIC 0.25 m g or 0.5 mg (2 mg/3 mL) pen injector Indications: Prediabetes , Obesity, Class III, BMI 40-49.9 (morbid obesity) (HCC-CMS) INJECT 0.5 MG INTO THE SKIN ONCE A WEEK 3 mL 08/30/2023 Active Start: 08-30-2023 OZEMPIC 0.25 m g or 0.5 mg (2 mg/3 mL) pen injector Indications: Prediabetes , Obesity, Class III, BMI 40-49.9 (morbid obesity) (HCC-CMS) INJECT 0.5 MG INTO THE SKIN ONCE A WEEK 3 mL 0 08/30/2023 Active Comment on above: INJECT 0.5 MG INTO T HE SKIN ONCE A WEEK INJECT 0.5 MG SUBCUT ANEOUSLY ONCE A WEEK QUEtiapine 300 mg oral tablet (20 sources) Atypical Antipsychotic Start: 05-13-20 End: 10-10-19 take 1 tablet by mouth once daily at bedtime QUEtiapine (SEROQUEL) 300 mg tablet Indications: Schizoaffective disorder, bipolar type (HCC-CMS) , PTSD (post-traumatic stress disorder) , Generalized anxiety disorder , Insomnia disorder, persistent, with mental disorder Take 1 Tablet by mouth nightly at bedtime 30 Tablet 1 07/15/2024 10/09/2024 Discontinued (Therapy completed/Not needed) Start: 03-18-2024 take 1 tablet by patel th once daily at bedtime QUEtiapine (SEROQUEL) 300 mg tablet Indications: Schizoaffective disorder, bipolar type (HCC-CMS) , PTSD (post-traumatic stress disorder) , Generalized anxiety disorder , Insomnia disorder, persistent, with mental disorder Take 1 Tablet by mouth nightly at bedtime 30 Tablet 1 03/18/2024 Active Start: 11-27-2023 End: 05-13-2024 take 1 tablet by mouth once daily at bedtime QUEtiapine (SEROQUEL) 300 mg tablet Indications: Schizoaffective disorder, bipolar type (HCC-CMS) , PTSD (post-traumatic stress disorder) , Generalized anxiety disorder , Insomnia disorder, persistent, with mental disorder Take 1 Tablet by mouth nightly at bedtime 30 Tablet 1 05/13/2024 Active Start: 10-22-2023 take 1 tablet by patel th once daily at bedtime QUEtiapine (SEROQUEL) 200 mg tablet Indications: Schizoaffective disorder, bipolar type ([facility]) , PTSD (post-traumatic stress disorder) , Generalized anxiety disorder , Insomnia disorder, persistent, with mental disorder Take 1 Tablet by mouth nightly at bedtime 30 Tablet 1 10/22/2023 Active Comment on above: Take 1 Tablet by patel th nightly at bedtime semaglutide (OZEMPIC) 0.25 mg or 0.5 mg (2 mg/3 mL) (1 source) Start: 08-08-2023 semaglutide (OZEMPIC) 0.25 mg or 0.5 mg (2 mg/3 mL) Indications: Prediabetes , Obesity, Class III, BMI 40-49.9 (morbid obesity) ([facility]) Inject 0.5 mg into the skin once a week Ok to switch to wegovy based on insurance coverage 3 mL 0 08/08/2023 Active Comment on above: Inject 0.5 mg into t he skin once a week Ok to switch to wegovy based on insurance coverage SUMAtriptan 50 mg oral tablet (1 source) Serotonin-1b and Serotonin-1d Receptor Agonist Start: 09-14-2023 SUMAtriptan succinate (IMITREX) 50 mg tablet Indications: Other migraine with status migrainosus, intractable Take 1 Tablet by mouth 1 (one) time as needed for migraine for up to 1 dose 9 Tablet 2 09/14/2023 Active Start: 09-14-2023 SUMAtriptan campoverde ccinate (IMITREX) 50 mg tablet Indications: Other migraine with status migrainosus, intractable Take 1 Tablet by mouth 1 (one) time as needed for migraine for up to 1 dose 9 Tablet 2 09/14/2023 Active Comment on above: Take 1 Tablet by patel th 1 (one) time as needed for migraine for up to 1 dose topiramate 50 mg oral tablet (20 sources) Start: 10-30-2023 End: 03-16-2025 topiramate (TOPAMAX) 50 mg tablet Take 100 mg by mouth 10/30/2023 03/16/2025 Discontinued (Therapy completed/Not needed) Comment on above: Take 100 mg by mouth valACYclovir 1000 mg oral tablet (5 sources) Herpesvirus Nucleoside Analog DNA Polymerase Inhibitor, Herpes Simplex Virus Nucleoside Analog DNA Polymerase Inhibitor, Herpes Zoster Virus Nucleoside Analog DNA Polymerase Inhibitor Start: 11-18-2021 Valacyclovir (Valtrex) 1 gram Tablet Active 1000 MG PO AT BEDTIME November 18, 2021 12:00am Start: 11-17-2021 End: 08-25-2022 valACYclovir (VALTREX) 1 gra m tablet Completed/Discontinued Medications Medication Drug Class(es) Dates Sig (Normalized) Sig (Original) amphetamine aspartate 3.75 mg / amphetamine sulfate 3.75 mg / dextroamphetamine saccharate 3.75 mg / dextroamphetamine sulfate 3.75 mg oral tablet (20 sources) Central Nervous System Stimulant Start: 03-18-2025 End: 06-17-2025 take 1 tablet by mouth three times daily dextroamphetamine- amphetamine (ADDERALL) 15 mg tablet Indications: Attention deficit hyperactivity disorder (ADHD), predominantly inattentive type Take 1 Tablet by mouth 3 (three) times daily for 30 days. 90 Tablet 04/17/2025 04/24/2025 Discontinued (Reorder (E-Cancel Not Sent)) Start: 09-06-2024 End: 03-16-2025 take 1 tablet by mouth three times daily dextroamphetamine-amphetamine (ADDERALL) 15 mg tablet Indications: Attention deficit hyperactivity disorder (ADHD), predominantly inattentive type Take 1 Tablet by mouth 3 (three) times daily for 30 days. 90 Tablet 01/26/2025 03/16/2025 Discontinued (Reorder (E-Cancel Not Sent)) Start: 05-13-2024 End: 08-26-2024 take 1 tablet by mouth three times daily dextroamphetamine-amphetamine (ADDERALL) 15 mg tablet Indications: Attention deficit hyperactivity disorder (ADHD), predominantly inattentive type Take 1 Tablet by mouth 3 (three) times daily for 30 days 90 Tablet 08/11/2024 08/26/2024 Discontinued (Reorder (E-Cancel Not Sent)) Start: 04-22-2024 End: 05-13-2024 take 1 tablet by mouth once daily dextroamphetamine-amphetamine (ADDERALL) 15 mg tablet Indications: Attention deficit hyperactivity disorder (ADHD), predominantly inattentive type Take 1 Tablet by mouth once daily for 21 days 21 Tablet 04/22/2024 05/13/2024 Discontinued (Reorder (E-Cancel Not Sent)) Start: 2024 End: 05-15-2024 take 1 capsule by mouth once daily in the morning dextroamphetamine-amphetamine (ADDERALL XR) 30 mg 24 hr capsule Indications: Attention deficit hyperactivity disorder (ADHD), predominantly inattentive type Take 1 Capsule by mouth every morning for 30 days 30 Capsule 2024 05/13/2024 Discontinued (Quantity/Dosage and/or Sig change) Start: 03-18-2024 End: 04-17-2024 take 1 capsule by mouth once daily in the morning dextroamphetamine-amphetamine (ADDERALL XR) 20 mg 24 hr capsule Indications: Attention deficit hyperactivity disorder (ADHD), predominantly inattentive type Take 1 Capsule by mouth every morning for 30 days 30 Capsule 03/18/2024 04/02/2024 Discontinued (Quantity/Dosage and/or Sig change) Start: 01-28-2024 End: 03-18-2024 take 1 capsule by mouth once daily in the morning dextroamphetamine-amphetamine (ADDERALL XR) 15 mg 24 hr capsule Indications: Attention deficit hyperactivity disorder (ADHD), predominantly inattentive type Take 1 Capsule by mouth every morning for 30 days 30 Capsule 01/28/2024 03/18/2024 Discontinued (Quantity/Dosage and/or Sig change) Start: 12-31-2023 End: 01-30-2024 take 1 capsule by mouth once daily in the morning dextroamphetamine-amphetamine (ADDERALL XR) 10 mg 24 hr capsule Indications: Attention deficit hyperactivity disorder (ADHD), predominantly inattentive type Take 1 Capsule by mouth every morning for 30 days 30 Capsule 12/31/2023 01/28/2024 Discontinued (Quantity/Dosage and/or Sig change) Start: 12-03-2023 End: 01-02-2024 take 1 capsule by mouth once daily in the morning dextroamphetamine-amphetamine (ADDERALL XR) 5 mg 24 hr capsule Indications: Attention deficit hyperactivity disorder (ADHD), predominantly inattentive type Take 1 Capsule by mouth every morning for 30 days 30 Capsule 12/03/2023 12/31/2023 Discontinued (Therapy completed/Not needed) Comment on above: Take 1 Capsule by [facility] every morning for 30 days Take 1 Tablet by patel once daily for 21 days Take 1 Tablet by patel 3 (three) times daily for 30 days Take 1 Tablet by patel 3 (three) times daily for 30 days. betamethasone 0.5 mg/ml / clotrimazole 10 mg/ml topical lotion (4 sources) Azole Antifungal, Corticosteroid Start: 04-09-20 clotrimazole-beta methasone (LOTRISONE) 1-0.05 % lotion Indications: Rash Apply topically 2 (two) times daily. 30 mL 1 04/09/2025 Active Comment on above: Apply topically 2 (t wo) times daily. doxepin hydrochloride 25 mg oral capsule (8 sources) Tricyclic Antidepressant Start: 04-03-20 End: 07-03-19 24 take 2 capsules by mouth once daily at bedtime doxepin capsule 25 mg TAKE 2 CAPSULES BY MOUTH NIGHTLY AT BEDTIME 0 06/01/2023 Active Start: 02-13-2023 take 2 capsules by m outh once daily at bedtime doxepin (SINEQUAN) 25 mg capsule Indications: Bipolar 2 disorder (HCC-CMS) , PTSD (post-traumatic stress disorder) , Schizoaffective disorder, bipolar type (HCC-CMS) Take 2 Capsules by mouth nightly at bedtime 30 Capsule 1 02/13/2023 Active Start: 01-11-2023 End: 02-13-2023 take 1 capsule by mouth once daily at bedtime doxepin (SINEQUAN) 25 mg capsule Indications: PTSD (post-traumatic stress disorder) , Bipolar 2 disorder (HCC-CMS) , Schizoaffective disorder, bipolar type (HCC-CMS) Take 1 Capsule by mouth nightly at bedtime 30 Capsule 1 01/11/2023 02/13/2023 Discontinued (Quantity/Dosage and/or Sig change) Comment on above: Take 1 Capsule by mo mih nightly at bedtime Take 2 Capsules by m outh nightly at bedtime eletriptan 40 mg oral tablet (4 sources) Serotonin-1b and Serotonin-1d Receptor Agonist Start: 4 End: 4 take 1 tablet by mouth once as needed eletriptan (RELPAX) 40 mg tablet Indications: Other migraine with status migrainosus, intractable Take 1 Tablet by mouth 1 (one) time as needed (migraine) for up to 1 dose Do not exceed 80 mg in 24 hours 9 Tablet 1 09/21/2023 12/03/2023 Discontinued (Patient preference) Comment on above: Take 1 Tablet by patel 1 (one) time as needed (migraine) for up to 1 dose Do not exceed 80 mg in 24 hours FLUoxetine 20 mg oral capsule (10 sources) Serotonin Reuptake Inhibitor Start: End: FLUoxetine (PROZAC) 20 mg capsule Indications: Schizoaffective disorder, bipolar type (HCC-CMS) , PTSD (post-traumatic stress disorder) , Generalized anxiety disorder Take 1 Capsule by mouth once daily for 2 weeks, then stop taking fluoxetine 14 Capsule 09/24/2023 10/22/2023 Discontinued (Therapy completed/Not needed) Start: 09-06-2023 End: 09-24-2023 take 1 capsule by mouth once daily FLUoxetine (PROZAC) 40 mg capsule Indications: Schizoaffective disorder, bipolar type (HCC-CMS) , PTSD (post-traumatic stress disorder) , Generalized anxiety disorder Take 1 Capsule by mouth once daily 30 Capsule 09/06/2023 09/24/2023 Discontinued (Quantity/Dosage and/or Sig change) Start: 07-03-2023 End: 09-06-2023 take 1 capsule by mouth once daily FLUoxetine (PROZAC) 20 mg capsule Indications: Schizoaffective disorder, bipolar type (HCC-CMS) , PTSD (post-traumatic stress disorder) Take 1 Capsule by mouth once daily 30 Capsule 1 07/03/2023 09/06/2023 Discontinued (Therapy completed/Not needed) Comment on above: Take 1 Capsule by [facility] once daily Take 1 Capsule by [facility] once daily for 2 weeks, then stop taking fluoxetine 24 hr lamoTRIgine 50 mg extended release oral tablet (2 sources) Mood Stabilizer, Anti-epileptic Agent Start: 021 take 1 tablet by mouth once daily lamoTRIgine ER (LAMICTAL XR) 50 mg 24 hr tablet Take 1 tablet by mouth once daily. 0 11/08/2020 Active Comment on above: Take 1 tablet by patel once daily. 3 ml liraglutide 6 mg/ml pen injector (6 sources) GLP-1 Receptor Agonist Start: 023 inject 0.6 mg by subcutaneous injection once daily, then inject 1.2 mg by subcutaneous injection once daily, then inject 1.8 mg by subcutaneous injection once daily, then inject 2.4 mg by subcutaneous injection once daily, then inject 3 mg by subcutaneous injection once daily liraglutide, weight loss, (SAXENDA) 3 mg/0.5 mL (18 mg/3 mL) pnij Indications: Obesity, Class III, BMI 40-49.9 (morbid obesity) ([facility]) , Prediabetes Inject 0.6mg under the skin daily for 1 week then 1.2mg daily for 1 week then 1.8mg daily for 1 week then 2.4mg daily for 1 week then 3mg daily thereafter 3 mL 1 08/30/2022 Active Comment on above: Inject 0.6mg under t he skin daily for 1 week then 1.2mg daily for 1 week then 1.8mg daily for 1 week then 2.4mg daily for 1 week then 3mg daily thereafter LORazepam 1 mg oral tablet (20 sources) Benzodiazepine Start: take 1 tablet by mouth twice daily as needed for anxiety LORazepam (ATIVAN) 1 mg tablet Indications: Generalized anxiety disorder Take 1 Tablet by mouth 2 (two) times daily as needed for anxiety. 15 Tablet 03/30/2025 Active Start: 03-24-2025 End: 03-27-2025 take 1 tablet by mouth twice daily as needed for anxiety LORazepam (ATIVAN) 1 mg tablet Indications: Generalized anxiety disorder Take 1 Tablet by mouth 2 (two) times daily as needed for anxiety. 15 Tablet 03/24/2025 03/27/2025 Discontinued (Reorder (E-Cancel Not Sent)) Start: 03-24-2025 take 1 tablet by patel th twice daily as needed for anxiety LORazepam (ATIVAN) 1 mg tablet Indications: Generalized anxiety disorder Take 1 Tablet by mouth 2 (two) times daily as needed for anxiety. 15 Tablet 03/24/2025 Active Start: 02-04-2025 End: 03-16-2025 take 1 tablet by mouth twice daily as needed for anxiety LORazepam (ATIVAN) 1 mg tablet Indications: Generalized anxiety disorder Take 1 Tablet by mouth 2 (two) times daily as needed for anxiety. 15 Tablet 02/24/2025 03/16/2025 Discontinued (Reorder (E-Cancel Not Sent)) Start: 02-04-2025 take 1 tablet by patel th twice daily as needed for anxiety LORazepam (ATIVAN) 1 mg tablet Indications: Generalized anxiety disorder Take 1 Tablet by mouth 2 (two) times daily as needed for anxiety. 15 Tablet 2 02/04/2025 Active Start: 04-22-2024 End: 01-20-2025 take 1 tablet by mouth twice daily as needed for anxiety LORazepam (ATIVAN) 1 mg tablet Indications: Generalized anxiety disorder Take 1 Tablet by mouth 2 (two) times daily as needed for anxiety 15 Tablet 2 11/06/2024 01/20/2025 Discontinued (Reorder (E-Cancel Not Sent)) Comment on above: Take 1 Tablet by patel th 2 (two) times daily as needed for anxiety Take 1 Tablet by patel th 2 (two) times daily as needed for anxiety. lurasidone hydrochloride 20 mg oral tablet (2 sources) Atypical Antipsychotic Start: 1 take 1 tablet by mouth once daily lurasidone (LATUDA) 20 mg tablet Take 1 tablet by mouth once daily. 0 11/08/2020 Active Comment on above: Take 1 tablet by patel th once daily. 24 hr metFORMIN hydrochloride 500 mg extended release oral tablet (20 sources) Biguanide Start: 3 MetFORMIN (Eqv-Glucophage XR) 500 mg oral tablet, EXTENDED RELEASE Dose : 500 mg = 1 tab(s), Oral, qDay, # 30 tab(s), 0 Refill(s) Start Date: 02/14/23 Status: Ordered Start: 12-25-2022 End: 09-16-2024 take 2 tablets by mouth once daily at breakfast metFORMIN XR (GLUCOPHAGE-XR) 500 mg 24 hr tablet Indications: Prediabetes Take 2 tablets by mouth once daily with breakfast 60 Tablet 5 09/16/2024 Active Start: 09-19-2022 End: 09-28-2022 take 2 tablets by mouth once daily at breakfast metFORMIN XR (GLUCOPHAGE-XR) 500 mg 24 hr tablet Indications: Weight gain due to medication , Prediabetes Take 2 tablets by mouth once daily with breakfast 60 Tablet 5 09/28/2022 Active Start: 07-25-2022 take 1 tablet by patel th once daily at breakfast metFORMIN (GLUMETZA) 500 mg 24 hr tablet Indications: Weight gain due to medication , Prediabetes Take 1 tablet by mouth daily with breakfast. 30 Tablet 2 07/25/2022 Active Comment on above: Take 1 tablet by patel th daily with breakfast. Take 1 tablet by patel th once daily with breakfast Take 2 tablets by mo uth once daily with breakfast methylPREDNISolone (9 sources) Corticosteroid Start: 04-09-2025 methylPREDNISolone (MEDROL DOSPAK) 4 mg tablet pack Indications: Rash Take per package insert. 1 Packet 04/09/2025 Active Start: 09-14-2023 End: 12-03-2023 methylPREDNISolone (MEDROL D OSPAK) 4 mg tablet pack Indications: Other migraine with status migrainosus, intractable Take per package insert 1 Packet 09/14/2023 12/03/2023 Discontinued (Patient preference) Start: 09-14-2023 methylPREDNISo lone (MEDROL DOSPAK) 4 mg tablet pack Indications: Other migraine with status migrainosus, intractable Take per package insert 1 Packet 09/14/2023 Active Comment on above: Take per package ins ert Take per package ins ert. mirtazapine 30 mg oral tablet (20 sources) Start: End: take 1 tablet by mouth once daily at bedtime mirtazapine (REMERON) 30 mg tablet Indications: Schizoaffective disorder, bipolar type (CMS & HHS-HCC) , PTSD (post-traumatic stress disorder) , Generalized anxiety disorder Take 1 Tablet by mouth nightly at bedtime. 30 Tablet 1 01/20/2025 03/13/2025 Discontinued (Therapy completed/Not needed) Start: 05-13-2024 End: 01-20-2025 take 1 tablet by mouth once daily at bedtime mirtazapine (REMERON) 45 mg tablet Indications: Schizoaffective disorder, bipolar type (CMS & HHS-HCC) , PTSD (post-traumatic stress disorder) , Generalized anxiety disorder Take 1 Tablet by mouth nightly at bedtime 30 Tablet 2 11/06/2024 01/20/2025 Discontinued (Reorder (E-Cancel Not Sent)) Start: 03-18-2024 take 1 tablet by patel th once daily at bedtime mirtazapine (REMERON) 45 mg tablet Indications: Schizoaffective disorder, bipolar type (HCC-CMS) , PTSD (post-traumatic stress disorder) , Generalized anxiety disorder Take 1 Tablet by mouth nightly at bedtime 30 Tablet 1 03/18/2024 Active Start: 04-03-2023 End: 05-13-2024 take 1 tablet by mouth once daily at bedtime mirtazapine (REMERON) 45 mg tablet Indications: Schizoaffective disorder, bipolar type (HCC-CMS) , PTSD (post-traumatic stress disorder) , Generalized anxiety disorder Take 1 Tablet by mouth nightly at bedtime 30 Tablet 1 05/13/2024 Active Start: 02-14-2023 mirtazapine 30 mg oral tablet Dose : 30 mg = 1 tab(s), Oral, qHS, # 30 tab(s), 0 Refill(s) Start Date: 02/14/23 Status: Ordered Start: 02-13-2023 take 1 tablet by patel th once daily at bedtime mirtazapine (REMERON) 30 mg tablet Indications: Bipolar 2 disorder (HCC-CMS) , PTSD (post-traumatic stress disorder) , Schizoaffective disorder, bipolar type (HCC-CMS) Take 1 Tablet by mouth nightly at bedtime 30 Tablet 1 02/13/2023 Active Start: 01-04-2023 End: 02-13-2023 take 1 tablet by mouth once daily at bedtime mirtazapine (REMERON) 30 mg tablet Indications: PTSD (post-traumatic stress disorder) , Bipolar 2 disorder (HCC-CMS) , Schizoaffective disorder, bipolar type (HCC-CMS) Take 1 Tablet by mouth nightly at bedtime 30 Tablet 1 01/11/2023 02/13/2023 Discontinued (Reorder) Start: 10-24-2022 take 1 tablet by patel th once daily at bedtime mirtazapine (REMERON) 30 mg tablet Indications: PTSD (post-traumatic stress disorder) Take 1 Tablet by mouth nightly at bedtime 30 Tablet 1 10/24/2022 Active Start: 09-21-2022 End: 10-24-2022 take 1 tablet by mouth once daily at bedtime mirtazapine (REMERON) 15 mg tablet Indications: PTSD (post-traumatic stress disorder) Take 1 Tablet by mouth nightly at bedtime 30 Tablet 1 09/21/2022 10/24/2022 Discontinued (Ineffective therapy) Start: 07-20-2022 End: 08-25-2022 take 1 tablet by mouth once daily at bedtime mirtazapine (REMERON) 15 mg tablet Indications: Abnormal movements , PTSD (post-traumatic stress disorder) Take 1 Tablet by mouth nightly at bedtime 30 Tablet 1 08/14/2022 08/25/2022 Discontinued (Therapy completed/Not needed) Comment on above: Take 1 Tablet by patel th nightly at bedtime Take 45 mg by mouth daily at bedtime. Take 1 Tablet by patel th nightly at bedtime. modafinil 100 mg oral tablet (17 sources) Sympathomimetic-l marcos Agent Start: 04-21-2025 End: 04-27-2025 take 1 tablet by mouth once daily modafiniL (PROVIGIL) 100 mg tablet Indications: Daytime hypersomnolence Take 1 Tablet by mouth once daily. 30 Tablet 1 04/21/2025 04/27/2025 Discontinued (Therapy completed/Not needed) Start: 04-21-2025 take 1 tablet by patel th once daily modafiniL (PROVIGIL) 100 mg tablet Indications: Daytime hypersomnolence Take 1 Tablet by mouth once daily. 30 Tablet 1 04/21/2025 Active Start: 04-21-2025 take 1 tablet by patel th once daily modafiniL (PROVIGIL) 100 mg tablet Indications: Daytime hypersomnolence Take 1 Tablet by mouth once daily. 30 Tablet 1 04/21/2025 Active Start: 04-21-2025 take 1 tablet by patel th once daily modafiniL (PROVIGIL) 100 mg tablet Indications: Daytime hypersomnolence Take 1 Tablet by mouth once daily. 30 Tablet 1 04/21/2025 Active Start: 03-16-2025 End: 03-27-2025 take 1 tablet by mouth once daily modafiniL (PROVIGIL) 100 mg tablet Indications: Daytime hypersomnolence Take 1 Tablet by mouth once daily. 30 Tablet 03/16/2025 03/27/2025 Discontinued (Reorder (E-Cancel Not Sent)) Start: 03-16-2025 take 1 tablet by patel th once daily modafiniL (PROVIGIL) 100 mg tablet Indications: Daytime hypersomnolence Take 1 Tablet by mouth once daily. 30 Tablet 03/16/2025 Active Start: 09-15-2025 take 1 tablet by patel th once daily modafiniL (PROVIGIL) 100 mg tablet Indications: Daytime hypersomnolence Take 1 Tablet by mouth once daily. 30 Tablet 03/16/2025 Active Start: 02-14-2025 End: 02-23-2025 take 1 tablet by mouth once daily modafiniL (PROVIGIL) 100 mg tablet Indications: Daytime hypersomnolence Take 1 Tablet by mouth once daily. 30 Tablet 2 02/14/2025 02/23/2025 Discontinued (Reorder (E-Cancel Not Sent)) Start: 02-14-2025 take 1 tablet by patel th once daily modafiniL (PROVIGIL) 100 mg tablet Indications: Daytime hypersomnolence Take 1 Tablet by mouth once daily. 30 Tablet 2 02/14/2025 Active Start: 10-09-2024 End: 01-20-2025 take 1 tablet by mouth once daily modafiniL (PROVIGIL) 100 mg tablet Indications: Daytime hypersomnolence Take 1 Tablet by mouth once daily 30 Tablet 2 11/06/2024 01/20/2025 Discontinued (Reorder (E-Cancel Not Sent)) Comment on above: Take 1 Tablet by patel th once daily Take 1 Tablet by patel th once daily. nabumetone 500 mg oral tablet (2 sources) Nonsteroidal Anti-inflammatory Drug Start: 02-15-20 End: 02-22-20 nabumetone 500 mg oral tablet Dose : 1,000 mg = 2 tab(s), Oral, BID, # 28 tab(s), 0 Refill(s) Start Date: 02/14/23 Stop Date: 02/21/23 Status: Ordered OLANZapine 10 mg oral tablet (15 sources) Atypical Antipsychotic Start: 09-06-19 End: 10-22-19 take 1 tablet by mouth once daily at bedtime OLANZapine (ZYPREXA) 10 mg tablet Indications: Schizoaffective disorder, bipolar type ([facility]) , PTSD (post-traumatic stress disorder) Take 1 Tablet by mouth nightly at bedtime 30 Tablet 09/24/2023 10/22/2023 Discontinued (Therapy completed/Not needed) Start: 07-03-2023 End: 09-06-2023 take 1 tablet by mouth once daily at bedtime OLANZapine (ZYPREXA) 7.5 mg tablet Indications: Schizoaffective disorder, bipolar type (HCC-CMS) , PTSD (post-traumatic stress disorder) Take 1 Tablet by mouth nightly at bedtime 30 Tablet 1 07/03/2023 09/06/2023 Discontinued (Quantity/Dosage and/or Sig change) Start: 05-02-2023 End: 07-03-2023 take 1 tablet by mouth once daily at bedtime OLANZapine (ZYPREXA) 5 mg tablet Take 5 mg by mouth daily at bedtime. 0 06/01/2023 Active Start: 04-20-2023 take 1 tablet by patel th once daily at bedtime OLANZapine (ZYPREXA) 10 mg tablet Indications: Bipolar 2 disorder (HCC-CMS) , Schizoaffective disorder, bipolar type (HCC-CMS) Take 1 Tablet by mouth nightly at bedtime 30 Tablet 1 04/20/2023 Active Comment on above: Take 1 Tablet by patel th nightly at bedtime Take 5 mg by mouth d aily at bedtime. omeprazole 40 mg delayed release oral capsule (20 sources) Proton Pump Inhibitor Start: End: take 1 capsule by mouth once daily before breakfast omeprazole (PRILOSEC) [address] capsule Indications: Diarrhea, unspecified type Take 1 Capsule by mouth every morning before breakfast 30 Capsule 5 09/16/2024 Active Comment on above: Take 1 capsule by mo uth once daily. Take 1 Capsule by mo ut every morning before breakfast ondansetron 8 mg oral tablet (20 sources) Serotonin-3 Receptor Antagonist Start: take 1 tablet by mouth every eight hours as needed for nausea ondansetron HCL (ZOFRAN) 8 mg tablet Indications: Prediabetes Take 1 Tablet by mouth every 8 (eight) hours as needed for nausea 9 Tablet 3 09/16/2024 Active Start: 09-02-2023 take 1 tablet by patel th every eight hours as needed ondansetron orally disintegrating (ZOFRAN ODT) 4 mg disintegrating tablet Take 1 tablet by mouth every 8 hours as needed. 12 tablet 0 09/02/2023 Active Start: 11-18-2021 End: 09-16-2024 take 1 tablet by mouth every six hours ondansetron HCL (ZOFRAN) 4 mg tablet Take 4 mg by mouth every 6 (six) hours 09/10/2022 09/16/2024 Discontinued (Cancelled) Comment on above: Take 4 mg by mouth e very 6 (six) hours Take 4 mg by mouth e very 6 hours. Take 1 tablet by patel th every 8 hours as needed. Take 1 Tablet by patel th every 8 (eight) hours as needed for nausea OZEMPIC 2 mg/dose (8 mg/3 mL) pen injector (10 sources) Start: inject 2 mg by subcutaneous injection every week OZEMPIC 2 mg/dose (8 mg/3 mL) pen injector Indications: Prediabetes INJECT 2 MG SUBCUTANEOUSLY ONCE A WEEK 3 mL 04/21/2025 Active Start: 03-25-2025 inject 2 mg by subcu taneous injection every week OZEMPIC 2 mg/dose (8 mg/3 mL) pen injector Indications: Prediabetes INJECT 2 MG SUBCUTANEOUSLY ONCE A WEEK 3 mL 03/25/2025 Active Start: 02-16-2025 inject 2 mg by subcu taneous injection every week OZEMPIC 2 mg/dose (8 mg/3 mL) pen injector Indications: Prediabetes INJECT 2 MG UNDER THE SKIN ONCE A WEEK 3 mL 02/16/2025 Active Start: 01-07-2025 inject 2 mg by subcu taneous injection every week OZEMPIC 2 mg/dose (8 mg/3 mL) pen injector Indications: Prediabetes INJECT 2 MG UNDER THE SKIN ONCE A WEEK 3 mL 01/07/2025 Active Comment on above: INJECT 2 MG UNDER TH E SKIN ONCE A WEEK INJECT 2 MG SUBCUTAN EOUSLY ONCE A WEEK prazosin 1 mg oral capsule (20 sources) alpha-Adrenergic Jori Start: End: take 1 capsule by mouth once daily at bedtime prazosin (MINIPRESS) 1 mg capsule Indications: PTSD (post-traumatic stress disorder) Take 1 Capsule by mouth nightly at bedtime. 30 Capsule 03/30/2025 04/27/2025 Discontinued (Therapy completed/Not needed) Start: 05-13-2024 End: 03-27-2025 take 1 capsule by mouth once daily at bedtime prazosin (MINIPRESS) 1 mg capsule Indications: PTSD (post-traumatic stress disorder) Take 1 Capsule by mouth nightly at bedtime. 30 Capsule 03/16/2025 03/27/2025 Discontinued (Reorder (E-Cancel Not Sent)) Start: 03-18-2024 take 1 capsule by mo uth once daily at bedtime prazosin (MINIPRESS) 1 mg capsule Indications: PTSD (post-traumatic stress disorder) Take 1 Capsule by mouth nightly at bedtime 30 Capsule 1 03/18/2024 Active Start: 01-28-2024 End: 05-13-2024 take 1 capsule by mouth once daily at bedtime prazosin (MINIPRESS) 1 mg capsule Indications: PTSD (post-traumatic stress disorder) Take 1 Capsule by mouth nightly at bedtime 30 Capsule 1 05/13/2024 Active Start: 11-18-2021 take 2 mg by mouth o nce daily in the evening Prazosin Active 2 MG PO EVERY EVENING November 18, 2021 12:00am Comment on above: Take 1 Capsule by mo uth nightly at bedtime Take 1 Capsule by mo uth nightly at bedtime. pregabalin 150 mg oral capsule (20 sources) Start: 06-10-2024 End: 04-09-2025 take 1 capsule by mouth twice daily pregabalin (LYRICA) 150 mg capsule Indications: Pain Take 1 Capsule by mouth 2 (two) times daily. 60 Capsule 3 04/09/2025 Active Start: 05-22-2024 End: 06-10-2024 take 1 capsule by mouth twice daily pregabalin (LYRICA) 75 mg capsule Indications: Pain Take 1 Capsule by mouth 2 (two) times daily 60 Capsule 05/22/2024 06/10/2024 Discontinued (Cancelled) Comment on above: Take 1 Capsule by mo uth 2 (two) times daily Take 1 Capsule by mo uth 2 (two) times daily. rimegepant 75 mg disintegrating oral tablet (20 sources) Start: 09-21-19 End: 01-23-20 take 1 tablet by mouth every other day as needed rimegepant (NURTEC ODT) disintegrating tablet Indications: Other migraine with status migrainosus, intractable Take 75 mg by mouth every other day Do not repeat doses. Every other day as needed 8 Tablet 5 01/23/2024 Active Comment on above: Take 75 mg by mouth every other day Do not repeat doses. Every other day as needed 0.25 mg, 0.5 mg dose 1.5 ml semaglutide 1.34 mg/ml pen injector (3 sources) Start: 06-06-20 End: 08-25-19 semaglutide (OZEMPIC) 0.25 mg or 0.5 mg(2 mg/1.5 mL) Indications: Obesity, Class III, BMI 40-49.9 (morbid obesity) ([facility]) , Prediabetes Inject 0.5mg under the skin once every 7 days. Please report any side effects. 1.5 mL 1 06/06/2022 08/25/2022 Discontinued (Therapy completed/Not needed) Comment on above: Inject 0.5mg under t he skin once every 7 days. Please report any side effects. semaglutide (OZEMPIC) 0.25 mg or 0.5 mg (2 mg/3 mL) pen (1 source) Start: 08-30-19 semaglutide (OZEMPIC) 0.25 mg or 0.5 mg (2 mg/3 mL) pen INJECT 0.5 MG INTO THE SKIN ONCE A WEEK 0 08/30/2023 Active Comment on above: INJECT 0.5 MG INTO T HE SKIN ONCE A WEEK semaglutide (OZEMPIC) 0.25 mg or 0.5 mg (2 mg/3 mL) pen injector (3 sources) Start: 10-30-19 inject 0.5 mg by subcutaneous injection every week semaglutide (OZEMPIC) 0.25 mg or 0.5 mg (2 mg/3 mL) pen injector Indications: Prediabetes , Obesity, Class III, BMI 40-49.9 (morbid obesity) ([facility]) INJECT 0.5 MG SUBCUTANEOUSLY ONCE A WEEK 3 mL 10/30/2023 Active Start: 10-08-2023 semaglutide (O ZEMPIC) 0.25 mg or 0.5 mg (2 mg/3 mL) pen injector Indications: Prediabetes , Obesity, Class III, BMI 40-49.9 (morbid obesity) ([facility]) INJECT 0.5 MG INTO THE SKIN ONCE A WEEK 3 mL 10/08/2023 Active Comment on above: INJECT 0.5 MG INTO T HE SKIN ONCE A WEEK INJECT 0.5 MG SUBCUT ANEOUSLY ONCE A WEEK semaglutide (OZEMPIC) 1 mg/dose (4 mg/3 mL) pen injector (15 sources) Start: 06-10-2024 End: 09-16-2024 semaglutide (OZEMPIC) 1 mg/dose (4 mg/3 mL) pen injector Indications: Weight gain due to medication , Prediabetes Inject 1 mg into the skin once a week 3 mL 3 06/10/2024 09/16/2024 Discontinued Start: 06-10-2024 semaglutide (O ZEMPIC) 1 mg/dose (4 mg/3 mL) pen injector Indications: Weight gain due to medication , Prediabetes Inject 1 mg into the skin once a week 3 mL 3 06/10/2024 Active Start: 01-23-2024 End: 06-10-2024 semaglutide (OZEMPIC) 1 mg/d ose (4 mg/3 mL) pen injector Indications: Prediabetes , Weight gain due to medication Inject 1 mg into the skin once a week 3 mL 3 01/23/2024 06/10/2024 Discontinued (Reorder (E-Cancel Not Sent)) Start: 01-23-2024 semaglutide (O ZEMPIC) 1 mg/dose (4 mg/3 mL) pen injector Indications: Prediabetes , Weight gain due to medication Inject 1 mg into the skin once a week 3 mL 3 01/23/2024 Active Comment on above: Inject 1 mg into the skin once a week semaglutide (OZEMPIC) 2 mg/dose (8 mg/3 mL) pen injector (3 sources) Start: 09-16-2024 semaglutide (OZEMPIC) 2 mg/dose (8 mg/3 mL) pen injector Indications: Prediabetes Inject 2 mg into the skin once a week 3 mL 2 09/16/2024 Active Comment on above: Inject 2 mg into the skin once a week 1 ml testosterone cypionate 200 mg/ml injection (20 sources) Androgen Start: 08-21-2024 End: 09-16-2024 testosterone cypionate (DEPO-TESTOSTERONE) 200 mg/mL injection Indications: Gender dysphoria INJECT 0.55 ML INTO THE MUSCLE EVERY 7 DAYS 10 mL 2 09/16/2024 Active Start: 12-25-2022 End: 01-23-2024 testosterone cypionate (DEPO-TESTOSTERONE) 200 mg/mL injection Indications: Gender dysphoria Inject 0.55mL into the muscle every 7 days 10 mL 2 01/23/2024 Active Start: 06-06-2022 End: 09-28-2022 testosterone cypionate (DEPO-TESTOSTERONE) 200 mg/mL injection Indications: Gender dysphoria Inject 0.55mL into the muscle every 7 days 10 mL 2 09/28/2022 Active Start: 11-18-2021 inject 0.5 mg by int ramuscular injection every week Testosterone Cypionate Active 0.5 MG IM EVERY WEEK November 18, 2021 12:00am Start: 08-16-2020 inject 50 mg by intr amuscular injection every week testosterone cypionate (DEPO-TESTOSTERONE) 100 mg/mL injection Inject 50 mg intramuscularly one time a week. 0 08/16/2020 Active Comment on above: Inject 0.55mL into t he muscle every 7 days Inject 50 mg intramu scularly one time a week. INJECT 0.55 ML INTO THE MUSCLE EVERY 7 DAYS Testosterone Cypionate 200 mg/mL intramuscular solution (2 sources) Start: 023 Testosterone Cypionate 200 mg/mL intramuscular solution Dose : 400 mg = 2 mL, Intramuscular, q2wk, 0 Refill(s), 113.6 Start Date: 02/14/23 Status: Ordered traZODone hydrochloride 50 mg oral tablet (3 sources) Serotonin Reuptake Inhibitor Start: 021 traZODone (DESYREL) 50 mg tablet 1-3 tabs at night. 0 10/28/2020 Active Comment on above: 1-3 tabs at night. 24 hr venlafaxine 150 mg extended release oral capsule (20 sources) Serotonin and Norepinephrine Reuptake Inhibitor Start: 025 take 1 capsule by mouth once daily at breakfast venlafaxine XR (EFFEXOR XR) 150 mg 24 hr capsule Indications: Generalized anxiety disorder , PTSD (post-traumatic stress disorder) , Moderate episode of recurrent major depressive disorder Take 1 Capsule by mouth once daily with breakfast along with 75 mg, for a total daily dose of 225 mg. 30 Capsule 04/27/2025 Active Start: 04-27-2025 take 1 capsule by [facility] once daily at breakfast venlafaxine XR (EFFEXOR XR) 75 mg 24 hr capsule Indications: Generalized anxiety disorder , PTSD (post-traumatic stress disorder) Take 1 Capsule by mouth once daily with breakfast along with 150 mg, for a total daily dose of 225 mg. 30 Capsule 04/27/2025 Active Start: 03-30-2025 End: 04-24-2025 take 1 capsule by mouth once daily at breakfast venlafaxine XR (EFFEXOR XR) 150 mg 24 hr capsule Indications: Generalized anxiety disorder , PTSD (post-traumatic stress disorder) , Schizoaffective disorder, bipolar type Take 1 Capsule by mouth once daily with breakfast along with 75 mg, for a total daily dose of 225 mg. 30 Capsule 03/30/2025 04/24/2025 Discontinued (Reorder (E-Cancel Not Sent)) Start: 03-30-2025 End: 04-24-2025 take 1 capsule by mouth once daily at breakfast venlafaxine XR (EFFEXOR XR) 75 mg 24 hr capsule Indications: Generalized anxiety disorder , PTSD (post-traumatic stress disorder) , Schizoaffective disorder, bipolar type Take 1 Capsule by mouth once daily with breakfast along with 150 mg, for a total daily dose of 225 mg. 30 Capsule 03/30/2025 04/24/2025 Discontinued (Reorder (E-Cancel Not Sent)) Start: 06-09-2024 End: 03-27-2025 take 1 capsule by mouth once daily at breakfast venlafaxine XR (EFFEXOR XR) 75 mg 24 hr capsule Indications: Generalized anxiety disorder , PTSD (post-traumatic stress disorder) , Schizoaffective disorder, bipolar type ([facility] & HHS-HCC) Take 1 Capsule by mouth once daily with breakfast along with 150 mg, for a total daily dose of 225 mg. 30 Capsule 03/16/2025 03/27/2025 Discontinued (Reorder (E-Cancel Not Sent)) Start: 05-13-2024 End: 03-27-2025 take 1 capsule by mouth once daily at breakfast venlafaxine XR (EFFEXOR XR) 150 mg 24 hr capsule Indications: Generalized anxiety disorder , PTSD (post-traumatic stress disorder) , Schizoaffective disorder, bipolar type (CMS & HHS-HCC) Take 1 Capsule by mouth once daily with breakfast along with 75 mg, for a total daily dose of 225 mg. 30 Capsule 03/16/2025 03/27/2025 Discontinued (Reorder (E-Cancel Not Sent)) Start: 04-22-2024 End: 06-10-2024 take 1 capsule by mouth once daily at breakfast venlafaxine XR (EFFEXOR XR) 37.5 mg 24 hr capsule Indications: Schizoaffective disorder, bipolar type (HCC-CMS) , Generalized anxiety disorder Take 1 Capsule by mouth once daily with breakfast along with 150 mg, for a total daily dose of 187.5 mg 30 Capsule 1 05/13/2024 06/10/2024 Discontinued (Cancelled) Start: 03-18-2024 take 1 capsule by mo uth once daily at breakfast venlafaxine XR (EFFEXOR XR) 150 mg 24 hr capsule Indications: Schizoaffective disorder, bipolar type (HCC-CMS) , PTSD (post-traumatic stress disorder) , Generalized anxiety disorder Take 1 Capsule by mouth once daily with breakfast 30 Capsule 1 03/18/2024 Active Start: 10-22-2023 End: 05-13-2024 take 1 capsule by mouth once daily at breakfast venlafaxine XR (EFFEXOR XR) 150 mg 24 hr capsule Indications: Schizoaffective disorder, bipolar type (HCC-CMS) , PTSD (post-traumatic stress disorder) , Generalized anxiety disorder Take 1 Capsule by mouth once daily with breakfast along with 37.5 mg, for a total daily dose of 187.5 mg 30 Capsule 1 05/13/2024 Active Start: 09-24-2023 End: 10-24-2023 take 1 capsule by mouth once daily at breakfast, then take 2 capsules by mouth once daily at breakfast venlafaxine XR (EFFEXOR XR) 37.5 mg 24 hr capsule Indications: Schizoaffective disorder, bipolar type (HCC-CMS) , PTSD (post-traumatic stress disorder) , Generalized anxiety disorder Take 1 Capsule by mouth once daily with breakfast for 14 days, THEN 2 Capsules once daily with breakfast for 16 days. 46 Capsule 09/24/2023 10/22/2023 Discontinued (Quantity/Dosage and/or Sig change) Comment on above: Take 1 Capsule by mo uth once daily with breakfast for 14 days, THEN 2 Capsules once daily with breakfast for 16 days. Take 1 Capsule by mo uth once daily with breakfast Take 1 Capsule by mo uth once daily with breakfast along with 37.5 mg, for a total daily dose of 187.5 mg Take 1 Capsule by mo uth once daily with breakfast along with 150 mg, for a total daily dose of 187.5 mg Take 1 Capsule by mo uth once daily with breakfast along with 75 mg, for a total daily dose of 225 mg Take 1 Capsule by mo uth once daily with breakfast along with 150 mg, for a total daily dose of 225 mg Take 1 Capsule by mo uth once daily with breakfast along with 75 mg, for a total daily dose of 225 mg. Take 1 Capsule by mo uth once daily with breakfast along with 150 mg, for a total daily dose of 225 mg. Problems Active Problems Problem Classification Problem Date Documented Da te Episodic/Chronic Anxiety disorders (20 sources) Posttraumatic stress disorder; Translations: [Post-traumatic stress disorder, unspecified] Chronic Attention-deficit, conduct, and disruptive behavior disorders (20 sources) Attention deficit hyperactivity disorder, predominantly inattentive type; Translations: [Attention-deficit hyperactivity disorder, predominantly inattentive type] Onset: 12-06-2020 Chronic Conditions associated with dizziness or vertigo (6 sources) Dizziness; Translations: [Dizziness and giddiness] Onset: 04-09-2025 04-09-2025 Episodic Genitourinary symptoms and ill-defined conditions (3 sources) Retention of urine; Translations: [Retention of urine, unspecified] Onset: 05-27-2024 04-24-2024 Episodic Headache; including migraine (20 sources) Refractory migraine; Translations: [Other migraine, intractable, with status migrainosus] Onset: 09-14-2023 09-14-2023 Chronic Headache; including migraine (4 sources) Headache; including migraine; Translations: [Headache, unspecified] Onset: 10-30-2023 Miscellaneous mental health disorders (20 sources) Gender dysphoria; Translations: [Gender identity disorder, unspecified] Onset: 05-31-2020 01-18-2022 Chronic Mood disorders (20 sources) Bipolar II disorder; Translations: [Bipolar II disorder] Onset: 05-31-2020 Chronic Nausea and vomiting (2 sources) Nausea and vomiting; Translations: [Nausea with vomiting, unspecified] Onset: 09-04-2023 09-02-2023 Episodic Other aftercare (7 sources) Patient encounter status; Translations: [Other long-term (current) drug therapy] Episodic Other gastrointestinal disorders (3 sources) Diarrhea; Translations: [Diarrhea, unspecified] 08-08-2023 Episodic Other liver diseases (1 source) Enzyme level - finding; Translations: [Transaminitis] 07-31-2023 Episodic Other nervous system disorders (4 sources) Polyneuropathy, unspecified; Translations: [Polyneuropathy, unspecified] Onset: 04-29-2024 Chronic Other nervous system disorders (2 sources) Other chronic pain; Translations: [Other chronic pain] Onset: 05-27-2024 Chronic Other nervous system disorders (1 source) Narcolepsy without cataplexy ; Translations: [Narcolepsy without cataplexy] 04-24-2025 Chronic Other nervous system disorders (2 sources) Acute postoperative pain; Translations: [Other acute postprocedural pain] 01-12-2022 Episodic Other nutritional; endocrine; and metabolic disorders (20 sources) Body mass index 40+ - severely obese; Translations: [Morbid (severe) obesity due to excess calories] Onset: 06-02-2022 06-05-2022 Chronic Other screening for suspected conditions (not mental disorders or infectious disease) (1 source) Encounter for screening for cardiovascular disorders; Translations: [Encounter for screening for cardiovascular disorders] Onset: 04-16-2025 Episodic Other skin disorders (5 sources) Eruption; Translations: [Rash and other nonspecific skin eruption] Onset: 04-09-2025 04-09-2025 Episodic Other upper respiratory infections (1 source) Sore throat symptom; Translations: [Acute pharyngitis, unspecified] 06-11-2023 Episodic Residual codes; unclassified (6 sources) Daytime somnolence; Translations: [Other hypersomnia] 10-09-2024 Chronic Residual codes; unclassified (4 sources) Other hypersomnia; Translations: [Hypersomnia, unspecified] 04-08-2025 Chronic Residual codes; unclassified (1 source) Hypersomnia, unspecified; Translations: [Hypersomnia, unspecified] Onset: 03-30-2025 Chronic Residual codes; unclassified (4 sources) Pain; Translations: [Pain, unspecified] 05-22-2024 Episodic Schizophrenia and other psychotic disorders (20 sources) Schizoaffective disorder, bipolar type; Translations: [Schizoaffective disorder, bipolar type] 01-11-2023 Chronic Spondylosis; intervertebral disc disorders; other back problems (2 sources) Lumbago with sciatica, right side; Translations: [Lumbago with sciatica, right side] Onset: 05-27-2024 Episodic Substance-related disorders (20 sources) Nicotine dependence; Translations: [Nicotine dependence, unspecified, uncomplicated] Onset: 05-18-2020 10-25-2021 Chronic Unclassified (12 sources) Smoker; Translations: [Smoking] Onset: 10-02-2022 10-02-2022 Unclassified (5 sources) Pain in pelvis; Translations: [Pelvic pain] Onset: 06-14-2021 08-08-2023 Past or Other Problems Problem Classification Problem Date Documented Da te Episodic/Chronic Abdominal pain (20 sources) Pain in pelvis; Translations: [Pelvic and perineal pain] Onset: 06-14-2021 10-02-2022 Episodic Diabetes mellitus without complication (20 sources) Prediabetes; Translations: [Prediabetes] Onset: 07-25-2022 07-27-2022 Episodic Malaise and fatigue (20 sources) Asthenia; Translations: [Weakness] Onset: 05-12-2024 05-12-2024 Episodic Other liver diseases (20 sources) Elevated liver enzymes level; Translations: [Abnormal levels of other serum enzymes] Onset: 08-08-2023 08-08-2023 Episodic Other nervous system disorders (20 sources) Abnormal movement; Translations: [Unspecified abnormal involuntary movements] Onset: 07-20-2022 Episodic Other nutritional; endocrine; and metabolic disorders (20 sources) Weight gain; Translations: [Abnormal weight gain] Onset: 06-08-2022 Episodic Other nutritional; endocrine; and metabolic disorders (20 sources) Weight increased; Translations: [Abnormal weight gain] Onset: 06-08-2022 01-23-2024 Episodic Other skin disorders (20 sources) Acne vulgaris; Translations: [Acne vulgaris] Onset: 06-05-2022 06-05-2022 Episodic Screening and history of mental health and substance abuse codes (20 sources) H/O: attempted suicide; Translations: [History of suicide attempt] Onset: 01-18-2022 01-18-2022 Episodic Results Test Name Value Interpretation Reference Range Facility Urine Drug Screen (VISTA)on 03-24-2025 AMPHETAMINES Negative Normal <1000 ng/mL [facility] Comment on above: Order Comment: UKN Performed By: #### L 505.5000 #### [facility] [address] [place] [address] BARBITIURATES Negative Normal < 200 ng/mL [facility] Comment on above: Order Comment: UKN Performed By: #### L 505.5000 #### [facility] [address] [place] [address] BENZODIAZIPINE Negative Normal < 200 ng/mL [facility] Comment on above: Order Comment: UKN Performed By: #### L 505.5000 #### [facility] [address] [place] [address] BUP Ur Drug Scr Negative Normal < 200 ng/mL [facility] Comment on above: Order Comment: UKN Performed By: #### L 505.5000 #### [facility] [address] [place] [address] COCAINE Negative Normal < 300 ng/mL [facility] Comment on above: Order Comment: UKN Performed By: #### L 505.5000 #### [facility] [address] [place] [address] Fentanyl Negative Normal <5 ng/mL [facility] Comment on above: Order Comment: UKN Result Comment: CONF IRMATORY TESTING FOR ALL POSITIVE URINE DRUG SCREEN RESULTS WILL ONLY BE SENT OUT UPON PHYSICIAN ORDER. [facility] Pro Urine Drug Screen methods provide only preliminary analytical test results. A more specific alternate chemical method must be used in order to obtain a confirmed analytical result. Gas chromatography/mass spectrometery (GC/MS) is the preferred confirmatory method. Clinical consideration and professional judgement should be applied to any drug of abuse test result, particularly when preliminary positive results are used. Urine TCA testing must be ordered separately. Use test mnemonic: UTCA Performed By: #### L 505.5000 #### [facility] [address] [place] [address] METHADONE Negative Normal < 300 ng/mL [facility] Comment on above: Order Comment: UKN Performed By: #### L 505.5000 #### [facility] [address] [place], [address] OPIATES Negative Normal < 300 ng/mL [facility] Comment on above: Order Comment: UKN Performed By: #### L 505.5000 #### [facility] [address] [place], [address] OXYCODONE Negative Normal < 100 ng/mL [facility] Comment on above: Order Comment: UKN Performed By: #### L 505.5000 #### [facility] [address] [place], [address] PCP Negative Normal < 25 ng/mL [facility] Comment on above: Order Comment: UKN Performed By: #### L 505.5000 #### [facility] [address] [place], [address] THC Negative Normal < 50 ng/mL [facility] Comment on above: Order Comment: UKN Performed By: #### L 505.5000 #### [facility] [address] [place], [address] ED MED ADMINISTRATION DETAIL on 02-07-2025 ED MED ADMINISTRATION DETAIL Curator Of Education - MIL TORO, : 2000, , Medication Administration Record [address] [address] [id number] 02/07/2025 Patient: MIL TORO Sex: Female : 2000 Age: 24y MEASUREMENTS: Wt: 88.5 kg, Ht/Miguel: 68.0 in, BMI: 29.65 ALLERGIES: Seroquel, oxycodone Medication Ordered Medication Administration Date/Time 1 of 1 Normal [facility] ED NURSES CLINICAL NOTEon ED NURSES CLINICAL NOTE Nurse Narrative - MIL TORO, : 2000, , Nurse Clinical Narrative [place] [address] [facility] [place] [address] [id number] 02/07/2025 15:41:00 Patient: MIL TORO Sex: Female : 2000 Age: 24y Disposition: Discharge to Home Disposition Decision Time: 17:34 02/07/2025 Departure Time: 19:32 02/07/2025 TRIAGE Arrived by private vehicle. Historian: (patient). Patient has a primary care physician. Primary physician (Andrew Lauren). Triage time: 16:42 02/07/2025. Acuity: LEVEL 4. Chief Complaint: RIGHT EAR PAIN and REDNESS TO RIGHT EAR. This started just prior to arrival. ( Pt has ear gauges in and just stretched them on Sunday. Today at 1200 pt removed his right ear gauge and it started to bleed and swell. He is concerned for infection.). The patient has had ear drainage. SEPSIS SCREEN: NEGATIVE. SIRS criteria negative: heart rate greater than 90. No possible sources of infection. -- 17:02 02/07/25 EDT Felicia Devine R.N. 17:02 02/07/25. BP: 114/72 MAP: 86. HR: 96. RR: 16. O2 saturation: 98% Temperature: 98.3 F. Pain level now 7/10. -- 17:02 02/07/25 EDT Felicia Devine R.N. Measurements: 16:59 02/07/25 Wt: 88.5 kg, Ht/Miguel: 68.0 in, BMI: 29.65 -- 16:59 02/07/25 EDT Felicia Devine R.N. Medications: lorazepam 1 mg tablet -- 17:02/07/25 EDT Felicia Devine R.N. 1 of 4 Nurse Narrative - MIL TORO, : 2000, , prazosin 1 mg capsule -- 17:09 /9/25 EDT Felicia Devine R.N. bupropion HCl XL 150 mg 24 hr tablet, extended release -- 17:02/07/25 EDT Felicia Devine R.N. mirtazapine 30 mg tablet -- 17:02/07/25 EDT Felicia Devine R.N. topiramate 50 mg tablet -- 17:02/07/25 HEIDET Felicia Devine R.N. omeprazole 40 mg capsule,delayed release -- 17:02/07/25 EDT Felicia Devine R.N. pregabalin 150 mg capsule -- 17:02/07/25 HEIDET Felicia Devine R.N. venlafaxine ER 75 mg capsule,extended release 24 hr -- 17:02/07/25 T Felicia Devine R.N. Nurtec ODT 75 mg disintegrating tablet -- 17:02/07/25 HEIDET Felicia Devine R.N. venlafaxine ER 150 mg capsule,extended release 24 hr -- 17:02/07/25 T Felicia Devine R.N. dextroamphetamine-am phetamine 15 mg tablet -- 17:02/07/25 HEIDET Felicia Devine R.N. ondansetron HCl 8 mg tablet -- 17:02/07/25 T Felicia Devine R.N. testosterone cypionate 200 mg/mL intramuscular oil -- 17:02/07/25 HEIDET Felicia Devine R.N. metformin ER 500 mg tablet,extended release 24 hr -- 17:02/07/25 HEIDET Felicia Devine R.N. modafinil 100 mg tablet -- 17:02/07/25 HEIDET Felicia Devine R.N. Ozempic 2 mg/dose (8 mg/3 mL) subcutaneous pen injector -- 17:02/07/25 HEIDET Felicia Devine R.N. 16:42 02/07/25. Preferred Pharmacy: [facility] -- 17:02 02/07/25 HEIDET Felicia Devine R.N. Allergies: Seroquel -- 16:54 08/9/25 EDT Felicia Devine R.N. oxycodone -- 16:54 02/07/25 EDT Felicia Devine R.N. Problems: Bipolar Disorder -- 16:55 02/07/25 HEIDET Felicia Devine R.N. Depression -- 16:55 02/07/25 HEIDET Felicia Devine R.N. Insomnia -- 16:55 02/07/25 HEIDET Felicia Devine R.N. Schizoaffective disorder, manic type -- 16:56 02/07/25 HEIDET Felicia Devine R.N. Gender identity disorder of adulthood -- 16:56 02/07/25 HEIDET Felicia Devine R.N. Surgeries: Mastectomy. bilateral -- 16:56 02/07/25 HEIDET Felicia Devine R.N. Hysterectomy -- 16:56 02/07/25 HEIDET Felicia Devine R.N. History 2 of 4 Nurse Narrative - MIL TORO DOB: 2000, , 16:42 02/07/25. SOCIAL HX: Light tobacco smoker (cigarette)- less than 1/2 a pack per day. Occasional alcohol use. Drug use: marijuana. The patient has not traveled outside the [place] Infectious disease exposure: No infectious disease exposure. ABUSE ASSESSMENT: The patient answered yes to the question(s) Do you feel safe in your home? and no to the question(s) Are you afraid to go home?. SELF HARM ASSESSMENT: Self harm assessment was performed. The patient answered no to the question(s) Have you recently felt down, depressed, or hopeless? and Do you have thoughts of harming or killing yourself?. FALL RISK ASSESSMENT: Fall risk assessment completed. No risk factors identified. -- 17:02 02/07/25 BRIANA Devine R.N. 16:58 02/07/25. PAST MEDICAL HX: LNMP: No menstrual periods. Denies current . -- 17:03 02/07/25 BRIANA Devine R.N. Interventions 16:42 02/07/25. Advanced care plan discussed with patient. Patient does not have advanced directive. -- 17:02 02/07/25 EDT Felicia Devine R.N. PHYSICAL ASSESSMENT 17:13 02/07/25. Ambulatory to room. GENERAL / NEURO / PSYCH: Alert. Appears in no acute distress. HEENT: Pupils equal, round and reactive to light. Erythema and pain upon movement of the left auricle. (erythema, warmth and edema noted to right earlobe X2 days). Left ea (more content not included)... Normal [facility] ED ORDER SHEET (CPOE ONLY)on 02-07-2025 ED ORDER SHEET (CPOE ONLY) Order Sheet - MIL TORO, : 2000, , Order Sheet [address] [address] [id number] 02/07/2025 Patient: MIL TORO Sex: Female : 2000 Age: 24y MEASUREMENTS: Wt: 88.5 kg, Ht/Miguel: 68.0 in, BMI: 29.65 ALLERGIES: Seroquel, oxycodone MEDICATION/IV/DRIP/F LUID ORDERS Order Description Priority Entered Acknowledged Completed LAB ORDERS Order Description Priority Entered Acknowledged Collected Completed DIAGNOSTIC STUDY ORDERS Order Description Priority Entered Acknowledged Completed STAFF ORDERS Order Description Priority Entered Acknowledged Collected Completed 1 of 1 Normal [facility] ED PHYSICIAN CLINICAL REPORT on 02-07-2025 ED PHYSICIAN CLINICAL REPORT Narrative - MIL TORO, : 2000, , Physician Clinical Narrative [address] [address] [id number] 02/07/2025 15:41:00 Patient: MIL TORO Sex: Female : 2000 Age: 24y Disposition: Discharge to Home Disposition Decision Time: 17:34 02/07/2025 Measurements Wt: 88.5 kg, Ht/Miguel: 68.0 in, BMI: 29.65 Initial Vital Sign Measured Time BP MAP HR RR O2Sat ETCO2 Temp Pain GCS RTS 17:02 02/07/2025 114/72 86 96 16 98% 98.3 F 7 Time Seen: 17:20 02/07/2025. Arrived- By private vehicle. Historian- patient. HISTORY OF PRESENT ILLNESS Chief Complaint: EARACHE. This started today patient has silicon ear hopes that are imbedded in his earlobe. He has had these for quite some time. Three days ago he states that he went up in size from a 22 to a 25 mm ring. Today at work had some discomfort in his slight burning along the right earlobe hoop and when he looked noticed that there was some redness and a little bit of blood along the hoop area. He took the hoop out which cause more bleeding from the inner aspect of the lobe and some redness and swelling. Mild to moderate pain along that area. Bleeding stopped. He is not having any purulent drainage no fever or chills. No complaint regarding the right ear. REVIEW OF SYSTEMS EYES: No eye discomfort. NEUROLOGICAL: No headache. GI: Has not had decreased oral intake. CONSTITUTIONAL: No fever or chills. 1 of 4 Narrative - MIL TORO, : 2000, , PAST HISTORY See nurses notes. Bipolar Disorder Depression Gender identity disorder of adulthood Insomnia Schizoaffective disorder, manic type Surgeries: Hysterectomy Mastectomy: Body Site bilateral Medications: bupropion HCl XL 150 mg 24 hr tablet, extended release dextroamphetamine-am phetamine 15 mg tablet lorazepam 1 mg tablet metformin ER 500 mg tablet,extended release 24 hr mirtazapine 30 mg tablet modafinil 100 mg tablet Nurtec ODT 75 mg disintegrating tablet omeprazole 40 mg capsule,delayed release ondansetron HCl 8 mg tablet Ozempic 2 mg/dose (8 mg/3 mL) subcutaneous pen injector prazosin 1 mg capsule pregabalin 150 mg capsule testosterone cypionate 200 mg/mL intramuscular oil topiramate 50 mg tablet venlafaxine ER 150 mg capsule,extended release 24 hr venlafaxine ER 75 mg capsule,extended release 24 hr Allergies: oxycodone Seroquel SOCIAL HISTORY 2 of 4 Martha - MIL TORO, : 2000, , History of tobacco use. Alcohol use. Drug use: marijuana. ADDITIONAL NOTES The nursing notes have been reviewed. PHYSICAL EXAM Vital Signs: Have been reviewed. Appearance: Alert. (Minimal scattered acne). Eyes: Eyes normal inspection. ENT: (Exam has been basically focused to the right ear. Patient has some clotted blood adherent to the inner lobe area and some redness and inflammation along the earlobe as well. It is mildly tender. No active bleeding no large open areas.). Nose: Nose normal. Throat: Pharynx normal. Neck: Normal inspection. Neck supple. Respiratory: No respiratory distress. Skin: Skin warm and dry. Normal skin color. No rash. Normal skin turgor. Neuro: Oriented X 3. No motor deficit. No sensory deficit. PROGRESS AND PROCEDURES MEDICAL DECISION MAKING: Serious conditions are unlikely to be a cause for the patient's findings. The differential diagnosis includes, but is not limited to, ( history and physical most consistent with localized infection mild local cellulitis to the right earlobe area.). Disposition: Condition: good. Discharged in good condition. Discharge decision based on the following: patient's condition is stable; patient's exam is stable. CLINICAL IMPRESSION Local cellulitis to right earlobe area. DISCHARGE INSTRUCTIONS Warnings: GENERAL WARNINGS: Return or contact your physician immediately if your condition worsens or changes unexpectedly, if not improving as expected, or if other problems arise. 3 of 4 Narrative - MIL TORO, : 2000, , Prescription Medications: doxycycline hyclate 100 mg tablet: Take 1 tablet by mouth twice a day for 10 days, dispense 20 tablet. Refills 0. [facility] [id number] [place] [address]. mupirocin 2 % topical ointment: Apply 1 a small amount to affected area three times a day, dispense 22 gram. Refills 0. Pharmacy: [facility] [id number] [place] [address]. Follow-up: Follow up with your doctor in about three days if not better. (Electronically signed by Jose Cruz Garcia M.D. 02/07/25 20:14:39 EDT) Generated by Severiano (more content not included)... Normal [facility] ED SUPER BILLon 02-07-2025 ED SUPER BILL Superbill - MIL TORO, : 2000, , [address] [address] [id number] 02/07/2025 Patient: MIL TORO Sex: Female : 2000 Age: 24y Item Professional Category Description Facility Code Code Quantity Fee Total Nurse/E/M EMERGENCY [id number] 1 $0.00 $0.00 DEPARTMENT VISIT MODERATE SEVERITY (10522) Grand Total $0.00 Providers Jose Cruz Garcia M.D. Chief Complaint EARACHE. Principal Diagnosis Local cellulitis to right earlobe area. 1 of 1 Normal [facility] ED VISIT SUMMARYon ED VISIT SUMMARY Visit Overview - MIL TORO, : 2000, , Visit Overview [address] [address] [id number] 02/07/2025 Patient: MIL TORO Sex: Female : 2000 Age: 24y 02/07/2025 08:34 PM EDT ED Arrival:15:41 02/07/2025 EDT Status:not Recent Travel:no Language:eng Adv Directive:No Isolation Status: Ethnicity:N Fall Risk:no risk Infectious Disease Exposure:no Measurements:5'8 / 172.7 Self-Harm Status:risk Sepsis Screen:negative cm 195.0 lb / 88.5 kg Chief Complaint:RIGHT EAR PAIN, {REDNESS} TO RIGHT EAR, (Andrew Lauren), and (Pt has ear gauges in and just stretched them on Sunday. Today at 1200 pt removed his right ear gauge and it started to bleed and swell. He is concerned for infection. ) ALLERGIES oxycodone Seroquel HOME MEDICATIONS 1 of 3 Visit Overview - MIL TORO, : 2000, , bupropion HCl XL 150 mg 24 hr tablet, extended release dextroamphetamine-am phetamine 15 mg tablet lorazepam 1 mg tablet metformin ER 500 mg tablet,extended release 24 hr mirtazapine 30 mg tablet modafinil 100 mg tablet Nurtec ODT 75 mg disintegrating tablet omeprazole 40 mg capsule,delayed release ondansetron HCl 8 mg tablet Ozempic 2 mg/dose (8 mg/3 mL) subcutaneous pen injector prazosin 1 mg capsule pregabalin 150 mg capsule testosterone cypionate 200 mg/mL intramuscular oil topiramate 50 mg tablet venlafaxine ER 150 mg capsule,extended release 24 hr venlafaxine ER 75 mg capsule,extended release 24 hr PAST MEDICAL HISTORY / PROBLEMS Bipolar Disorder Depression Gender identity disorder of adulthood Insomnia LNMP: No menstrual periods Schizoaffective disorder, manic type See nurses notes PAST SURGICAL HISTORY Hysterectomy Mastectomy. bilateral SOCIAL HISTORY Smoking status: Yes Alcohol use: Yes Drug use: Yes 2 of 3 Visit Overview - MIL TORO, : 2000, , ED COURSE MEDICATIONS GIVEN IN EMERGENCY DEPARTMENT IV SITE INFORMATION INTAKE OUTPUT REASSESMENT (most recent) 17:13 02/07/25. Ambulatory to room. GENERAL / NEURO / PSYCH: Alert. Appears in no acute distress. HEENT: Pupils equal, round and reactive to light. Erythema and pain upon movement of the left auricle. (erythema, warmth and edema noted to right earlobe X2 days). Left ear within normal limits. RESPIRATORY: Respirations not labored. CVS: Capillary refill less than 2 seconds. SKIN: Skin is warm. VITAL SIGNS First Vitals Last Vitals Temp 17:02 02/07/25 98.3 F Temp 17:02/07/25 98.3 F BP 17:02 02/07/25 114/72 BP 17:02/07/25 114/72 HR 17:02 02/07/25 96 HR 17:02 02/07/25 96 RR 17:02 02/07/25 16 RR 17:02 02/07/25 16 O2 Sat 17:02/07/25 98% O2 Sat 17:02 02/07/25 98% Pain 17:02 02/07/25 7 Pain 17:02 02/07/25 7 ETCO2 17:02 02/07/25 ETCO2 17:02 02/07/25 GCS 17:02 02/07/25 GCS 17:02 02/07/25 RTS 17:02 02/07/25 RTS 17:02 02/07/25 PROCEDURES NURSING INTERVENTIONS LABS / STUDIES CLINICAL IMPRESSION 3 of 3 Normal [facility] ED VITALS FLOW SHEETon 02-07 ED VITALS FLOW SHEET Vitals - MIL TORO, : 2000, , Vital Sign Flow Sheet [address] [address] [id number] 02/07/2025 Patient: MIL TORO Sex: Female : 2000 Age: 24y Measurements Wt: 88.5 kg, Ht/Miguel: 68.0 in, BMI: 29.65 Measured Time BP MAP HR RR O2Sat ETCO2 Temp Pain GCS RTS 17:02 02/07/2025 114/72 86 96 16 98% 98.3 F 7 1 of 1 Normal [facility] MR LUMBAR SPINE WITHOUT CONT [facility] 05-27-2024 MR LUMBAR SPINE WITHOUT CONTRAST EXAMINATION: MR LUMBAR SPINE WITHOUT CONTRAST HISTORY: ORDERING SYSTEM PROVIDED HISTORY: Low back pain, cauda equina syndrome suspected, TECHNOLOGIST PROVIDED HISTORY: Illness/Other Reason for exam: Low back pain, cauda equina syndrome suspected Encounter Type: Initial Additional signs and symptoms: na ORDERING SYSTEM PROVIDED DIAGNOSIS CODES: 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 TECHNIQUE: MRI of the lumbar spine without contrast. Sequences obtained by standard department protocol. CONTRAST: No intravenous contrast was utilized. FINDINGS: The conus ends at L1. No abnormal signal of the terminal spinal cord. T12-L1 through L3-L4: No spinal canal stenosis or neural foraminal stenosis. L4-L5: Mild broad-based posterior disc bulge. No spinal canal stenosis. No neural foraminal stenosis. Mild facet joint arthropathy. L5-S1: Intervertebral disc height is preserved. No spinal canal stenosis. No neural foraminal stenosis. No acute bone marrow edema. No acute fractures. Vertebral body height is preserved. Visualized portions of the sacroiliac joints are normal. IMPRESSION: 1. No spinal canal stenosis. No neural foraminal stenosis. 2. No acute fractures. 3. Other findings as described. IPR/alt Workstation ID: [id number] Dictated by: PITA LAMBERT on SunMay 27, 2024 2:26:09 PM EST Transcribed by: VANI MICHELLE on SunMay 27, 2024 3:09:03 PM EST Finalized by: PITA LAMBERT on SunMay 27, 2024 3:18:40 PM EST Normal [facility] Comment on above: Order Comment: Injur y/Trauma or Illness?:Illness/Other How long have you had these symptoms (acute/chronic)?:Acute Reason for exam?:Low back pain, cauda equina syndrome suspected Type of Exam?:Initial Additional signs and symptoms?:na DEREK SCREEN, IFA, W/REFL LILIANA Gil 05-05-2024 DEREK SCREEN, IFA Negative Normal NEGATIVE [facility] Comment on above: Result Comment: DEREK IFA is a first line screen for detecting the presence of up to approximately 150 autoantibodies in various autoimmune diseases. A negative DEREK IFA result suggests an DEREK-associated autoimmune disease is not present at this time, but is not definitive. If there is high clinical suspicion for Sjogren's syndrome, testing for anti-SS-A/Ro antibody should be considered. Anti-Natalia-1 antibody should be considered for clinically suspected inflammatory myopathies. AC-0: Negative International Consensus on DEREK Patterns (https://doi.org/10.1515/vkdz-3604-3291) For additional information, please refer to http://education.Hashplex.baimos technologies/faq/KPQ182 (This link is being provided for informational/ educational purposes only.) Performed By: #### 9 84, 5697 #### [facility] [address] [facility] [address] [place] Director Reactor Projects: Wicho Murphy M.D.,PhD #### 8525, 32543, 899, 927, 7832, 5810, 4942, 249, 466, 496, 58300 #### [facility] [address], [address] [place] [address] Director [employer]actor Projects: Vincent Monahan MD #### [id number] #### [facility] [address] [place] [address] Director Reactor Projects: Álvaro Elizalde PH.D, F-ABFT COPPER, BLOODon 05-05-2024 COPPER, BLOOD 88 mcg/dL Normal [facility] Comment on above: Result Comment: Repo rting Limit: 20 mcg/dL Normally: 80-180 mcg/dL. Analysis by Inductively Coupled Plasma/Mass Spectrometry (ICP/MS) Specimens for elemental testing should be collected in certified metal-free containers. Elevated results for elemental testing may be caused by environmental contamination at the time of specimen collection and should be interpreted accordingly. It is recommended that unexpected elevated results be verified by testing another specimen in a trace metal free container. This test was developed and its performance characteristics determined by [facility]. It has not been cleared or approved by the US Food and Drug Administration. Digital data review may have taken place remotely by qualified [facility] staff utilizing a secure VPN connection for some or all of the reported results. This is in accordance with and follows CLIA regulations. Performed By: #### 9 26, 5042 #### [facility] [address] [facility] [place], [place] Director Reactor Projects: Wicho Murphy M.D.,PhD #### 8525, 67841, 899, 927, 7832, 5810, 4942, 249, 466, 496, 42101 #### [facility] [address], [address] [place] [address] Director [employer]actor Projects: Vincent Monahan MD #### [id number] #### [facility] [address] [place] [address] Director [employer]actor Projects: Álvaro Elizalde PH.D, F-ABFT FOLATE, SERUMon 05-05-2024 Folate [Mass/Vol] 7.0 ng/mL Normal [facility] Comment on above: Result Comment: Refe rence Range Low: <3.4 Borderline: 3.4-5.4 Normal: >5.4 Performed By: #### 5041 #### [facility] [address] [facility] [address] [place] Director Reactor Projects: Wicho Murphy M.D.,PhD #### 8525, 448[address], 899, 927, 7832, 5810, 4942, 249, 466, 496, 74462 #### [facility] [address] [place] [address], [address] [place] [address] Director Reactor Projects: Vincent Monahan MD #### [id number] #### [facility] [address] [place] [address] Director Reactor Projects: Álvaro Elizalde PH.D, F-ABFT HEMOGLOBIN A1con 05-05-2024 HEMOGLOBIN A1c 5.3 % of total Hgb Normal <5.7 [facility] Comment on above: Result Comment: For the purpose of screening for the presence of diabetes: <5.7% Consistent with the absence of diabetes 5.7-6.4% Consistent with increased risk for diabetes (prediabetes) > or =6.5% Consistent with diabetes This assay result is consistent with a decreased risk of diabetes. Currently, no consensus exists regarding use of hemoglobin A1c for diagnosis of diabetes in children. According to [place] Diabetes Association (ADA) guidelines, hemoglobin A1c <7.0% represents optimal control in non- diabetic patients. Different metrics may apply to specific patient populations. Standards of Medical Care in Diabetes(ADA). Performed By: #### 5041 #### [facility] [address] [place] Director Reactor Projects: Wicho Murphy M.D.,PhD #### 8525, 82872, 899, 927, 7832, 5810, 4942, 249, 466, 496, 09049 #### [facility] [address] [place] [address], [address] [place] [address] Director Reactor Projects: Vincent Monahan MD #### 37145 #### [facility] [address] [place] [address] Director Reactor Projects: Álvaro Elizalde PH.D, F-ABFT HIV 1/2 ANTIGEN/ANTIBODY,FOU RTH GENERATION W/RFLon 05-05-2024 HIV AG/AB, 4TH GEN Non-Reactive Normal NON-REACTIVE [facility] Comment on above: Result Comment: HIV- 1 antigen and HIV-1/HIV-2 antibodies were not detected. There is no laboratory evidence of HIV infection. PLEASE NOTE: This information has been disclosed to you from records whose confidentiality may be protected by state law. If your state requires such protection, then the state law prohibits you from making any further disclosure of the information without the specific written consent of the person to whom it pertains, or as otherwise permitted by law. A general authorization for the release of medical or other information is NOT sufficient for this purpose. For additional information please refer to http://education.Flatpebble/faq/TOQ862 (This link is being provided for informational/ educational purposes only.) The performance of this assay has not been clinically validated in patients less than 2 years old. Performed By: #### 9 9863 #### [facility] [address] [place], [place] Director Reactor Projects: Wicho Murphy M.D.,PhD #### 8525, 55494, 899, 927, 7832, 5810, 4942, 249, 466, 496, 68706 #### [facility] [address] [facility], [address] [place] [address] Director Reactor Projects: Vincent Monahan MD #### 73377 #### [facility] [address] [place] [address] Director Reactor Projects: Álvaro Elizalde PH.D, F-ABFT NATALIA-1 ANTIBODYon 05-05-2024 NATALIA-1 ANTIBODY <1.0 NEG Normal <1.0 NEG [facility] Comment on above: Performed By: #### 9 , 3235 #### [facility]/[employer] [place] [id number] [facility] [address] [place], [place] Director Reactor Projects: Wicho Murphy M.D.,PhD #### 8525, 624[address], 899, 927, 7832, 5810, 4942, 249, 466, 496, 87383 #### [facility] of [address], [address] [place], [place] [id number] Director Reactor Projects: Vincent Monahan MD #### 57018 #### [facility] [address] [place] [id number] Director Reactor Projects: Álvaro Elizalde PH.D, F-ABFT PROTEIN, TOTAL AND PROTEIN E LECTROPHORESIS, RANDOM URINEon 05-05-2024 ALBUMIN 37 % Normal [facility] Comment on above: Order Comment: FASTI NG:NO FASTING: NO Performed By: #### 9 , 5042 #### [facility]/[address] [place], [place] Director Reactor Projects: Wicho Murphy M.D.,PhD #### 8525, 436[address], 899, 927, 7832, 5810, 4942, 249, 466, 496, 42874 #### [facility] [address], [address] [place] [address] Director Reactor Projects: Vincent Monahan MD #### 76243 #### [facility] [address] Director Reactor Projects: Álvaro Elizalde PH.D, F-ABFT [id number] 7 % Normal [facility] Comment on above: Order Comment: FASTI NG:NO FASTING: NO Performed By: #### 9 26, 5042 #### [facility]/[address] [place], [place] Director Reactor Projects: Wicho Murphy M.D.,PhD #### 8525, 82674, 899, 927, 7832, 5810, 4942, 249, 466, 496, 66483 #### [facility] [address], [address] [place] [address] Director Reactor Projects: Vincent Monahan MD #### 86151 #### [facility] [address] [place], [place] Director Reactor Projects: Álvaro Elizalde PH.D, F-ABFT [id number] 20 % Normal [facility] Comment on above: Order Comment: FASTI NG:NO FASTING: NO Performed By: #### 9 , 5042 #### [facility]/[address] [place], [place] Director Reactor Projects: Wicho Murphy M.D.,PhD #### 8525, 25843, 899, 927, 7832, 5810, 4942, 249, 466, 496, 29160 #### [facility] [address], [address] [place] [address] Director Reactor Projects: Vincent Monahan MD #### [id number] #### [facility] [address] [place], [place] Director Reactor Projects: Álvaro Elizalde PH.D, F-ABFT BETA GLOBULINS 23 % Normal [facility] Comment on above: Order Comment: FASTI NG:NO FASTING: NO Performed By: #### 9 , 504 #### [facility]/[address] [place], [place] Director Reactor Projects: Wicho Murphy M.D.,PhD #### 8525, 98460, 899, 927, 7832, 5810, 4942, 249, 466, 496, 63563 #### [facility] [address], [address] [place] [address] Director Reactor Projects: Vincent Monahan MD #### [id number] #### [facility] [address] [place], [place] Director Reactor Projects: Álvaro Elizalde PH.D, F-ABFT Creatinine (U) [Mass/Vol] 267 mg/dL Normal 20-275 [facility] Comment on above: Order Comment: FASTI NG:NO FASTING: NO Performed By: #### 9 , 5042 #### [facility]/[address] [place] Director Reactor Projects: Wicho Murphy M.D.,PhD #### 8525, 37102, 899, 927, 7832, 5810, 4942, 249, 466, 496, 97482 #### [facility] [address] [facility], [address] Director Reactor Projects: Vincent Monhaan MD #### 15192 #### [facility] [address] [place] [address] Director Reactor Projects: Álvaro Elizalde PH.D, F-ABFT GAMMA GLOBULINS 14 % Normal [facility] Comment on above: Order Comment: FASTI NG:NO FASTING: NO Performed By: #### 9 , 5042 #### [facility]/[address] [place], [place] Director Reactor Projects: Wicho Murphy M.D.,PhD #### 8525, 62632, 899, 927, 7832, 5810, 4942, 249, 466, 496, 82541 #### [facility] [address], [address] [place], [place] [phone] Director Reactor Projects: Vincent Monahan MD #### 94220 #### [facility] [address] [place] [id number] Director Reactor Projects: Álvaro Elizalde PH.D, F-ABFT INTERPRETATION Normal [facility] Comment on above: Order Comment: FASTI NG:NO FASTING: NO Result Comment: 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 Performed By: #### 9 , 5042 #### [facility]/[address] [place], [place] Director Reactor Projects: Wicho Murphy M.D.,PhD #### 8525, 65218, 899, 927, 7832, 5810, 4942, 249, 466, 496, 83818 #### [facility] [address], [address] [place], [place] [phone] Director Reactor Projects: Vincent Monahan MD #### 87541 #### [facility] [address] [place], [place] Director Reactor Projects: Álvaro Elizalde PH.D, F-ABFT Protein (U) [Mass/Vol] 16 mg/dL Normal 5-24 [facility] Comment on above: Order Comment: FASTI NG:NO FASTING: NO Performed By: #### 9 , 5041 #### [facility]/[address] [place], [place] Director Reactor Projects: Wicho Murphy M.D.,PhD #### 8525, 46279, 899, 927, 7832, 5810, 4942, 249, 466, 496, 53206 #### [facility] [address], [address] [place], [place] [phone] Director Reactor Projects: Vincent Monahan MD #### 45274 #### [facility] [address] [place], [place] Director Reactor Projects: Álvaro Elizalde PH.D, F-ABFT PROTEIN/CREATININE RATIO 60 mg/g creat Normal 24-184 [facility] Comment on above: Order Comment: FASTI NG:NO FASTING: NO Performed By: #### 9 , 504 #### [facility]/[address] [place], [place] Director Reactor Projects: Wciho Murphy M.D.,PhD #### 8525, 73474, 899, 927, 7832, 5810, 4942, 249, 466, 496, 54341 #### [facility] [address], [address] [place], [place] [address] Director Reactor Projects: Vincent Monahan MD #### [id number] #### [facility] [address] [place], [place] Director Reactor Projects: Álvaro Elizalde PH.D, F-ABFT PROTEIN/CREATININE RATIO 0.060 mg/mg creat Normal 0.024-0.184 [facility] Comment on above: Order Comment: FASTI NG:NO FASTING: NO Performed By: #### 9 , 5042 #### [facility]/[address] [place] Director Reactor Projects: Wicho Murphy M.D.,PhD #### 8525, 54487, 899, 927, 7832, 5810, 4942, 249, 466, 496, 37303 #### [facility] [address], [address] [place] [address] Director Reactor Projects: Vincent Monahan MD #### 15441 #### [facility] [address] [place] [address] Director Reactor Projects: Álvaro Elizalde PH.D, F-ABFT SCL-70 ANTIBODYon 05-05-2024 SCL-70 ANTIBODY <1.0 NEG Normal <1.0 NEG [facility] Comment on above: Performed By: #### 9 , 5041 #### [facility]/[address] [place], [place] Director Reactor Projects: Wicho Murphy M.D.,PhD #### 8525, 25668, 899, 927, 7832, 5810, 4942, 249, 466, 496, 33482 #### [facility] [place] [address] Director Reactor Projects: Vincent Monahan MD #### 31236 #### [facility] [address] Director Reactor Projects: Álvaro Elizalde PH.D, F-ABFT SJOGREN'S ANTIBODIES (SS-A,S S-B)on 05-05-2024 SJOGREN'S ANTIBODY (SS-A) <1.0 NEG Normal <1.0 NEG [facility] Comment on above: Performed By: #### 9 , 5041 #### [facility]/[address] [place] Director Reactor Projects: Wicho Murphy M.D.,PhD #### 8525, 33085, 899, 927, 7832, 5810, 4942, 249, 466, 496, 79964 #### [facility] [address], [address] [place], [place] [phone] Director Reactor Projects: Vincent Monahan MD #### 73178 #### [facility] [address] [place], [place] Director Reactor Projects: Álvaro Elizalde PH.D, F-ABFT SJOGREN'S ANTIBODY (SS-B) <1.0 NEG Normal <1.0 NEG [facility] Comment on above: Performed By: #### 9 , 5042 #### [facility]/[address] [place], [place] Director Reactor Projects: Wicho Murphy M.D.,PhD #### 8525, 79658, 899, 927, 7832, 5810, 4942, 249, 466, 496, 30807 #### [facility] of [place] [phone] Director Reactor Projects: Vincent Monahan MD #### 45778 #### [facility] [address] [place], [place] Director Reactor Projects: Álvaro Elizalde PH.D, F-ABFT SM/ROD PLACER ANTIBODYon 05-05-2024 SM/ROD PLACER ANTIBODY <1.0 NEG Normal <1.0 NEG [facility] Comment on above: Performed By: #### 9 , 5041 #### [facility]/[address] [place], [place] Director Reactor Projects: Wicho Murphy M.D.,PhD #### 8525, 95570, 899, 927, 7832, 5810, 4942, 249, 466, 496, 63243 #### [facility] [place] [id number] Director Reactor Projects: Vincent Monahan MD #### 24688 #### [facility] [address] [place], [place] Director Reactor Projects: Álvaro Elizalde PH.D, F-ABFT TSHon 05-05-2024 TSH Qn 2.07 m[IU]/L Normal [facility] Comment on above: Result Comment: Refe rence Range > or = 20 Years 0.40-4.50 Ranges First trimester 0.26-2.66 Second trimester 0.55-2.73 Third trimester 0.43-2.91 Performed By: #### 5041 #### [facility] [place], [place] Director Reactor Projects: Wicho Murphy M.D.,PhD #### 8525, 10595, 899, 927, 7832, 5810, 4942, 249, 466, 496, 50519 #### [facility] [address], [address] [place] [address] Director Reactor Projects: Vincent Monahan MD #### 49302 #### [facility] [address] [address] Director Reactor Projects: Álvaro Elizalde PH.D, F-ABFT VITAMIN B1 (THIAMINE), BLOOD , LC/MS/MSon 05-05-2024 VITAMIN B1 (THIAMINE), BLOOD, LC/MS/MS 82 nmol/L Normal 78-185 [facility] Comment on above: Result Comment: Vitamin supplementation within 24 hours prior to blood draw may affect the accuracy of the results. This test was developed and its analytical performance characteristics have been determined by [facility] [place], [place]. It has not been cleared or approved by the U.S. Food and Drug Administration. This assay has been validated pursuant to the CLIA regulations and is used for clinical purposes. Performed By: #### 5041 #### [facility] [place], [place] Director Reactor Projects: Wicho Murphy M.D.,PhD #### 8525, 54646, 899, 927, 7832, 5810, 4942, 249, 466, 496, 65854 #### [facility] [address], [address] [place] [address] Director Reactor Projects: Vincent Monahan MD #### 35328 #### [facility] [address] [place] [address] Director Reactor Projects: Álvaro Elizalde PH.D, F-ABFT VITAMIN B12on 05-05-2024 Cobalamin (Vitamin B12) [Mass/Vol] 377 pg/mL Normal 200-1100 [facility] Comment on above: Result Comment: Please Note: Although the reference range for vitamin B12 is 200-1100 pg/mL, it has been reported that between 5 and 10% of patients with values between 200 and 400 pg/mL may experience neuropsychiatric and hematologic abnormalities due to occult B12 deficiency; less than 1% of patients with values above 400 pg/mL will have symptoms. Performed By: #### 9 5041 #### [facility]/[place] [id number] [facility] [place], [place] Director Reactor Projects: Wicho Murphy M.D.,PhD #### 8525, 26808, 899, 927, 7832, 5810, 4942, 249, 466, 496, 47871 #### [facility] [address] [facility], [address] [place] [address] Director Reactor Projects: Vincent Monahan MD #### 52883 #### [facility] [address] [place] [address] Director Reactor Projects: Álvaro Elizalde PH.D, F-AB VITAMIN B6, PLASMAon 024 VITAMIN B6, PLASMA 29.5 ng/mL High 2.1-21.7 [facility] Comment on above: Result Comment: Vitamin supplementation within 24 hours prior to blood draw may affect the accuracy of the results. This test was developed and its analytical performance characteristics have been determined by [employer] [facility] [place], [place]. It has not been cleared or approved by the U.S. Food and Drug Administration. This assay has been validated pursuant to the CLIA regulations and is used for clinical purposes. Performed By: #### 5041 #### [facility] [address] [facility] [address] [place] Director Reactor Projects: Wicho Murphy M.D.,PhD #### 8525, 59708, 899, 927, 7832, 5810, 4942, 249, 466, 496, 75147 #### [facility] [address] [facility], [address] [place] [address] Director Reactor Projects: Vincent Monahan MD #### 65415 #### [facility] [address] [place] [address] Director Reactor Projects: Álvaro Elizalde PH.D, F-ABFT PROTEIN ELECTROPHORESIS, [facility] [place] 04-29-2024 Albumin [Mass/Vol] 3.5 g/dL Normal 3.1-5.5 [facility] Comment on above: Performed By: #### 4 6379 #### [facility] [facility] [address] [place] [address] Franko Byrne M.D. [id number] ALPHA 1 0.3 g/dL Normal 0.2-0.5 [facility] Comment on above: Performed By: #### 4 [id number] #### [facility] [address] [place] [address] Franko Byrne M.D. [id number] ALPHA 2 0.9 g/dL Normal 0.4-1.1 [facility] Comment on above: Performed By: #### 4 [id number] #### [facility] [address] [place] [address] Franko Byrne M.D. [id number] BETA GLOBULIN 0.9 g/dL Normal 0.6-1.3 [facility] Comment on above: Performed By: #### 4 [id number] #### [facility] [address] [place], [place] [id number] Franko Byrne M.D. [id number] GAMMA GLOBULIN 0.9 g/dL Normal 0.6-1.8 [facility] Comment on above: Performed By: #### 4 [id number] #### [facility] [address] [place] [address] Franko Byrne M.D. [id number] Protein [Mass/Vol] 6.6 g/dL Normal 6.0-8.0 [facility] Comment on above: Performed By: #### 4 [id number] #### [facility] [address] [place] [id number] Franko Byrne M.D. [id number] REVIEWED BY Reviewed by Pathologist: Blanche Vogt MD [facility] Comment on above: Performed By: #### 4 [id number] #### [facility] [address] [place] [id number] Franko Byrne M.D. [id number] SPEP INTERPRETATION Normal pattern. Serum protein electrophoresis is insufficient to rule out a monoclonal protein. Recommend serum immunofixation and serum free light chains if clinically indicated. [facility] Comment on above: Performed By: #### 4 [id number] #### [facility] [address] [place] [address] Franko Byrne M.D. [id number] MR BRAIN WITHOUT CONTRASTon 04-07-2024 MR BRAIN WITHOUT CONTRAST EXAMINATION: MR BRAIN WITHOUT CONTRAST HISTORY: ORDERING SYSTEM PROVIDED HISTORY: Headache, new or worsening, neuro deficit (Age 18-49y), TECHNOLOGIST PROVIDED HISTORY: Illness/Other Reason for exam: Headache, new or worsening, neuro deficit Encounter Type: Subsequent/Follow-up Additional signs and symptoms: n/a ORDERING SYSTEM PROVIDED DIAGNOSIS CODES: R51.9 Headache, chronic daily COMPARISON: None TECHNIQUE: MR brain without contrast CONTRAST: None FINDINGS: Acute Change: No evidence of an acute intracranial process. Hemorrhage: No evidence of prior parenchymal hemorrhage on the susceptibility weighted sequences. Mass Lesion/ Mass Effect: 1.9 x 1.1 x 1.7 cm T1 hyperintense lesion with susceptibility in the left ambient cistern is consistent with lipoma (8:10, 7:14) Chronic Change: The white matter is within normal limits of signal intensity for age. Parenchyma: No significant parenchymal volume loss for age. Ventricles: Normal caliber and morphology. Skull Base: Hypothalamic and pituitary region are grossly normal. Craniocervical junction is normal. No significant marrow replacement process. Vasculature: Major intracranial arteries and dural venous sinuses demonstrate typical flow voids, suggesting patency by spin echo criteria. Other: The paranasal sinuses and mastoid air cells are clear. The orbits and extracranial soft tissues are unremarkable. IMPRESSION: No acute intracranial process. Left ambient cistern lipoma Workstation ID: [id number] Dictated by: SEE HOWELL on SunApr 08, 2024 10:02:30 AM EDT Transcribed by: SEE HOWELL on SunApr 08, 2024 10:02:30 AM EDT Finalized by: SEE HOWELL on SunApr 08, 2024 10:02:30 AM EDT Normal [facility] Comment on above: Order Comment: Injur y/Trauma or Illness?:Illness/Other How long have you had these symptoms (acute/chronic)?:Chronic Reason for exam?:Headache, new or worsening, neuro deficit Type of Exam?:Subsequent/Follow-up Additional signs and symptoms?:n/a .Auto Diffon 09-04-2023 Basophil, Absolute 0.1 10 3/mcL Normal 0.0-0.2 [facility] ([place]) Comment on above: Performed By: #### A HARSHAL, CBC, MDW, CMP, GFR, ADIFF, LIP #### [address] [address] Basophils/100 WBC (Bld) 0.7 % Normal 0.0-2.5 [facility] ([place]) Comment on above: Performed By: #### A HARSHAL, CBC, MDW, CMP, GFR, ADIFF, LIP #### [address] [address] Eosinophil, Absolute 0.2 10 3/mcL Normal 0.0-0.4 [facility] ([place]) Comment on above: Performed By: #### A HARSHAL, CBC, MDW, CMP, GFR, ADIFF, LIP #### [address] [address] Eosinophils/100 WBC (Bld) 2.4 % Normal 0.0-7.0 [facility] ([place]) Comment on above: Performed By: #### A HARSHAL, CBC, MDW, CMP, GFR, ADIFF, LIP #### [address] [address] Lymphocyte, Absolute 2.2 10 3/mcL Normal 0.8-3.9 [facility] ([place]) Comment on above: Performed By: #### A HARSHAL, CBC, MDW, CMP, GFR, ADIFF, LIP #### [address] [address] Lymphocytes/100 WBC (Bld) 21.4 % Normal 10.0-50.0 [facility] ([place]) Comment on above: Performed By: #### A HARSHAL, CBC, MDW, CMP, GFR, ADIFF, LIP #### [address] [address] Monocyte, Absolute 0.8 10 3/mcL Normal 0.2-1.0 [facility] ([place]) Comment on above: Performed By: #### A HARSHAL, CBC, MDW, CMP, GFR, ADIFF, LIP #### [address] [address] Monocytes/100 WBC (Bld) 7.4 % Normal 1.7-13.0 A [facility] ([place]) Comment on above: Performed By: #### A HARSHAL, CBC, MDW, CMP, GFR, ADIFF, LIP #### [address] [address] Neutrophils/100 WBC (Bld) 68.1 % Normal 37.0-80.0 [facility] ([place]) Comment on above: Performed By: #### A HARSHAL, CBC, MDW, CMP, GFR, ADIFF, LIP #### [address] [address] .GFRon 09-04-2023 GFR 92 ml/min/1.73sqm Normal [facility] ([place]) Comment on above: Result Comment: GFR Population mean for , Non- Americans Ages 20-29 = 116 mL/min/1.73 sq.m. Ages 30-39 = 107 mL/min/1.73 sq.m. Ages 40-49 = 99 mL/min/1.73 sq.m. Ages 50-59 = 93 mL/min/1.73 sq.m. Ages 60-69 = 85 mL/min/1.73 sq.m. Ages 70+ = 75 mL/min/1.73 sq.m. Chronic Kidney Disease: Less than 60 mL/min/1.73 square meters End Stage Renal Disease: Less than 15 mL/min/1.73 square meters Performed By: #### A HARSHAL, CBC, MDW, CMP, GFR, ADIFF, LIP ####[address] [place], [place] [address] GFR Non- 76 ml/min/1.73sqm Normal [facility] ([place]) Comment on above: Result Comment: GFR Population mean for , Non- Americans Ages 20-29 = 116 mL/min/1.73 sq.m. Ages 30-39 = 107 mL/min/1.73 sq.m. Ages 40-49 = 99 mL/min/1.73 sq.m. Ages 50-59 = 93 mL/min/1.73 sq.m. Ages 60-69 = 85 mL/min/1.73 sq.m. Ages 70+ = 75 mL/min/1.73 sq.m. Chronic Kidney Disease: Less than 60 mL/min/1.73 square meters End Stage Renal Disease: Less than 15 mL/min/1.73 square meters Performed By: #### A HARSHAL, CBC, MDW, CMP, GFR, ADIFF, LIP ####[address] [place], [place] [address] .MDWon 09-04-2023 Monocyte Distribution Width 15.84 Normal 0.00-20.00 [facility] ([place]) Comment on above: Result Comment: For ED adult patients suspected of sepsis, MDW<=20.0 does not rule out sepsis or risk of sepsis Performed By: #### A HARSHAL, CBC, MDW, CMP, GFR, ADIFF, LIP #### [address] [place], [place] [address] .NEUABSon 09-04-2023 Neutrophil, Absolute 7.0 10 3/mcL High 2.9-6.2 [facility] ([place]) Comment on above: Performed By: #### A HARSHAL, CBC, MDW, CMP, GFR, ADIFF, LIP #### [address] [address] .Urinalysis Microscopic (AO) on 09-04-2023 UA Bacteria Trace Abnormal [facility] ([place]) Comment on above: Performed By: #### U A, UAMICAO #### [address] [address] UA RBC 0-5 Abnormal None Seen [facility] ([place]) Comment on above: Performed By: #### U A, UAMICAO #### [place] [address] UA Squam Epithelial 5-10 Abnormal None Seen [facility] ([place]) Comment on above: Performed By: #### U A, UAMICAO #### [place] [address] UA WBC 0-5 Abnormal None Seen [facility] ([place]) Comment on above: Performed By: #### U A, UAMICAO #### [place] [address] CBCon 09-04-2023 Erythrocyte distribution width (RBC) [Ratio] 15.6 % High 11.5-14.5 [facility] ([place]) Comment on above: Performed By: #### A HARSHAL, CBC, MDW, CMP, GFR, ADIFF, LIP #### [place] [address] Hematocrit (Bld) [Volume fraction] 46.7 % Normal 42.0-52.0 [facility] ([place]) Comment on above: Performed By: #### A HARSHAL, CBC, MDW, CMP, GFR, ADIFF, LIP #### [place] [address] Hgb 16.0 G/dL Normal 14.0-18.0 [facility] ([place]) Comment on above: Performed By: #### A HARSHAL, CBC, MDW, CMP, GFR, ADIFF, LIP #### [place] [address] MCH (RBC) [Entitic mass] 27.9 pg Normal 27.0-31.2 [facility] ([place]) Comment on above: Performed By: #### A HARSHAL, CBC, MDW, CMP, GFR, ADIFF, LIP #### [address] [address] MCHC 34.4 G/dL Normal 31.8-35.4 [facility] ([place]) Comment on above: Performed By: #### A HARSHAL, CBC, MDW, CMP, GFR, ADIFF, LIP #### [address] [address] MCV (RBC) [Entitic vol] 81.2 fL Normal 80.0-94.0 A [facility] ([place]) Comment on above: Performed By: #### A HARSHAL, CBC, MDW, CMP, GFR, ADIFF, LIP #### [address] [address] Platelet 332 10 3/mcL Normal 130-400 [facility] ([place]) Comment on above: Performed By: #### A HARSHAL, CBC, MDW, CMP, GFR, ADIFF, LIP #### [address] [address] Platelet mean volume (Bld) [Entitic vol] 7.3 fL Low 7.4-10.4 [facility] ([place]) Comment on above: Performed By: #### A HARSHAL, CBC, MDW, CMP, GFR, ADIFF, LIP #### [address] [address] RBC 5.75 10 6/mcL Normal 4.04-6.13 [facility] ([place]) Comment on above: Performed By: #### A HARSHAL, CBC, MDW, CMP, GFR, ADIFF, LIP #### [address] [address] WBC 10.3 10 3/mcL Normal 4.6-10.8 [facility] ([place]) Comment on above: Performed By: #### A HARSHAL, CBC, MDW, CMP, GFR, ADIFF, LIP #### [address], [place] [address] CMPon 09-04-2023 Albumin Level 3.8 G/dL Normal 3.5-5.0 [facility] ([place]) Comment on above: Performed By: #### A HARSHAL, CBC, MDW, CMP, GFR, ADIFF, LIP ####[address] [place], [place] [address] Albumin/Globulin [Mass ratio] 1.1 {ratio} Normal 1.1-2.5 [facility] ([place]) Comment on above: Performed By: #### A HARSHAL, CBC, MDW, CMP, GFR, ADIFF, LIP ####[place] [address] [place], [place] [address] ALP [Catalytic activity/Vol] 93 U/L Normal 40-135 [facility] ([place]) Comment on above: Performed By: #### A HARSHAL, CBC, MDW, CMP, GFR, ADIFF, LIP ####[address] [place], [place] [address] ALT [Catalytic activity/Vol] 45 U/L Normal 16-63 [facility] ([place]) Comment on above: Performed By: #### A HARSHAL, CBC, MDW, CMP, GFR, ADIFF, LIP ####[address] [place], [place] [address] AST [Catalytic activity/Vol] 22 U/L Normal 10-40 [facility] ([place]) Comment on above: Performed By: #### A HARSHAL, CBC, MDW, CMP, GFR, ADIFF, LIP ####[place] [address] [place], [place] [address] Bili Total 0.4 mg/dL Normal 0.2-1.0 [facility] ([place]) Comment on above: Result Comment: Use of this assay is not recommended for patients undergoing treatment with eltrombopag due to the potential for falsely elevated results. Performed By: #### A HARSHAL, CBC, MDW, CMP, GFR, ADIFF, LIP ####[place] [address] [place], [place] [address] BUN/Creatinine Ratio 5 ratio Low 7-27 [facility] ([place]) Comment on above: Performed By: #### A HARSHAL, CBC, MDW, CMP, GFR, ADIFF, LIP ####[address] [place], [place] [address] Calcium [Mass/Vol] 9.5 mg/dL Normal 8.4-10.2 [facility] ([place]) Comment on above: Performed By: #### A HARSHAL, CBC, MDW, CMP, GFR, ADIFF, LIP ####[address] [place], [place] [address] Chloride [Moles/Vol] 103 mmol/L Normal 98-107 [facility] ([place]) Comment on above: Performed By: #### A HARSHAL, CBC, MDW, CMP, GFR, ADIFF, LIP ####[address] [place], [place] [address] CO2 [Moles/Vol] 25 mmol/L Normal 22-29 [facility] ([place]) Comment on above: Performed By: #### A HARSHAL, CBC, MDW, CMP, GFR, ADIFF, LIP ####[address] [place], [place] [address] Creatinine [Mass/Vol] 0.91 mg/dL Normal 0.70-1.30 [facility] ([place]) Comment on above: Performed By: #### A HARSHAL, CBC, MDW, CMP, GFR, ADIFF, LIP ####[address] [place], [place] [address] Electrolyte Balance 12.0 mEq/L Normal 4.0-15.0 [facility] ([place]) Comment on above: Performed By: #### A HARSHAL, CBC, MDW, CMP, GFR, ADIFF, LIP ####[address] [place], [place] [address] Globulin 3.5 G/dL Normal [facility] ([place]) Comment on above: Performed By: #### A HARSHAL, CBC, MDW, CMP, GFR, ADIFF, LIP ####[address] [place], [place] [address] Glucose [Mass/Vol] 95 mg/dL Normal 70-105 [facility] ([place]) Comment on above: Performed By: #### A HARSHAL, CBC, MDW, CMP, GFR, ADIFF, LIP ####[address] [place], [place] [address] Potassium [Moles/Vol] 4.1 mmol/L Normal 3.5-5.1 [facility] ([place]) Comment on above: Performed By: #### A HARSHAL, CBC, MDW, CMP, GFR, ADIFF, LIP ####[address] [place], [place] [address] Sodium [Moles/Vol] 140 mmol/L Normal 136-145 [facility] ([place]) Comment on above: Performed By: #### A HARSHAL, CBC, MDW, CMP, GFR, ADIFF, LIP ####[address] [place], [place] [address] Total Protein 7.3 G/dL Normal 6.4-8.2 [facility] ([place]) Comment on above: Performed By: #### A HARSHAL, CBC, MDW, CMP, GFR, ADIFF, LIP ####[address] [place], [place] [address] Urea nitrogen [Mass/Vol] 5 mg/dL Low 7-18 [facility]) Comment on above: Performed By: #### A HARSHAL, CBC, MDW, CMP, GFR, ADIFF, LIP ####[address] [place], [place] [address] CT ABD/PELVIS W/ IV CONTRAST ONLYon 09-04-2023 CT ABD/PELVIS W/ IV CONTRAST ONLY ORIGINAL EXAMINATION: CT OF THE ABDOMEN AND [...] Sign Date: 09/04/2023 7:11:12 PM Ordering Provider: TIO HERNANDEZ [facility] ([place]) LABORATORYOrdered By: SYSTEM SYSTEM on 09-04-2023 Albumin BCP dye [Mass/Vol] 3.8 G/dL Normal 3.5 - 5.0 G/dL AO ADM SS Albumin/Globulin [Mass ratio] 1.1 {ratio} Normal 1.1 - 2.5 ratio AO ADM SS ALP [Catalytic activity/Vol] 93 U/L Normal 40 - 135 U/L AO ADM SS ALT With P-5'-P [Catalytic activity/Vol] 45 U/L Normal 16 - 63 U/L AO ADM SS AST With P-5'-P [Catalytic activity/Vol] 22 U/L Normal 10 - 40 U/L AO ADM SS Basophil, Absolute 0.1 103/mcL Normal 0.0 - 0.2 10^3/mcL AO Workflow SS Basophils/100 WBC (Bld) 0.7 % Normal 0.0 - 2.5 % AO Workflow SS Bilirubin [Mass/Vol] 0.4 mg/dL Normal 0.2 - 1 .0 mg/dL AO ADM SS Comment on above: Interpretive Data: U se of this assay is not recommended for patients undergoing treatment with eltrombopag due to the potential for falsely elevated results. Calcium [Mass/Vol] 9.5 mg/dL Normal 8.4 - 10. 2 mg/dL AO ADM SS Chloride [Moles/Vol] 103 mmol/L Normal 98 - 10 7 mmol/L AO ADM SS CO2 [Moles/Vol] 25 mmol/L Normal 22 - 29 mmol/L AO ADM SS Creatinine [Mass/Vol] 0.91 mg/dL Normal 0.70 - 1.30 mg/dL AO ADM SS Electrolyte Balance 12.0 mEq/L Normal 4.0 - 15 .0 mEq/L AO ADM SS Eosinophil, Absolute 0.2 103/mcL Normal 0.0 - 0 .4 10^3/mcL AO Workflow SS Eosinophils/100 WBC (Bld) 2.4 % Normal 0.0 - 7.0 % AO Workflow SS Erythrocyte distribution width (RBC) [Ratio] 15.6 % High 11.5 - 14.5 % AO Workflow SS GFR/1.73 sq M.predicted among blacks MDRD (S/P/Bld) [Vol rate/Area] 92 ml/min/1.73sqm Invalid Interpretation Code AO Chemistry S Comment on above: Interpretive Data: GFR Population mean for , Non- Americans Ages 20-29 = 116 mL/min/1.73 sq.m. Ages 30-39 = 107 mL/min/1.73 sq.m. Ages 40-49 = 99 mL/min/1.73 sq.m. Ages 50-59 = 93 mL/min/1.73 sq.m. Ages 60-69 = 85 mL/min/1.73 sq.m. Ages 70+ = 75 mL/min/1.73 sq.m. Chronic Kidney Disease: Less than 60 mL/min/1.73 square meters End Stage Renal Disease: Less than 15 mL/min/1.73 square meters GFR/1.73 sq M.predicted among non-blacks MDRD (S/P/Bld) [Vol rate/Area] 76 ml/min/1.73sqm Invalid Interpretation Code AO Chemistry S Comment on above: Interpretive Data: GFR Population mean for , Non- Americans Ages 20-29 = 116 mL/min/1.73 sq.m. Ages 30-39 = 107 mL/min/1.73 sq.m. Ages 40-49 = 99 mL/min/1.73 sq.m. Ages 50-59 = 93 mL/min/1.73 sq.m. Ages 60-69 = 85 mL/min/1.73 sq.m. Ages 70+ = 75 mL/min/1.73 sq.m. Chronic Kidney Disease: Less than 60 mL/min/1.73 square meters End Stage Renal Disease: Less than 15 mL/min/1.73 square meters Globulin 3.5 G/dL Invalid Interpretation Code AO ADM SS Glucose [Mass/Vol] 95 mg/dL Normal 70 - 105 mg/dL AO ADM SS Hematocrit (Bld) [Volume fraction] 46.7 % Normal 42.0 - 52.0 % AO Workflow SS Hemoglobin (Bld) [Mass/Vol] 16.0 G/dL Normal 14.0 - 18.0 G/dL AO Workflow SS Lipase [Catalytic activity/Vol] 26 U/L Normal 16 - 77 U/L AO ADM SS Lymphocyte, Absolute 2.2 103/mcL Normal 0.8 - 3 .9 10^3/mcL AO Workflow SS Lymphocytes/100 WBC (Bld) 21.4 % Normal 10.0 - 50.0 % AO Workflow SS MCH (RBC) [Entitic mass] 27.9 pg Normal 27.0 - 31.2 pg AO Workflow SS MCHC 34.4 G/dL Normal 31.8 - 35.4 G/dL AO Workflow SS MCV (RBC) [Entitic vol] 81.2 fL Normal 80.0 - 94.0 fL AO Workflow SS Monocyte distribution width Auto (Bld) [Entitic vol] 15.84 1 Normal 0.00 - 20.00 AO Workflow SS Comment on above: Result Comment: For ED adult patients suspected of sepsis, MDW<=20.0 does not rule out sepsis or risk of sepsis Monocyte, Absolute 0.8 103/mcL Normal 0.2 - 1.0 10^3/mcL AO Workflow SS Monocytes/100 WBC (Bld) 7.4 % Normal 1.7 - 13.0 % AO Workflow SS Neutrophil, Absolute 7.0 103/mcL High 2.9 - 6 .2 10^3/mcL AO Workflow SS Neutrophils/100 WBC (Bld) 68.1 % Normal 37.0 - 80.0 % AO Workflow SS Platelet mean volume (Bld) [Entitic vol] 7.3 fL Low 7.4 - 10.4 fL AO Workflow SS Platelets (Bld) [#/Vol] 332 103/mcL Normal 130 - 400 10^3/mcL AO Workflow SS Potassium [Moles/Vol] 4.1 mmol/L Normal 3.5 - 5.1 mmol/L AO ADM SS Protein [Mass/Vol] 7.3 G/dL Normal 6.4 - 8.2 G/dL AO ADM SS RBC (Bld) [#/Vol] 5.75 106/mcL Normal 4.04 - 6.1 3 10^6/mcL AO Workflow SS Sodium [Moles/Vol] 140 mmol/L Normal 136 - 145 mmol/L AO ADM SS Urea nitrogen [Mass/Vol] 5 mg/dL Low 7 - 18 mg/dL AO ADM SS Urea nitrogen/Creatinine [Mass ratio] 5 ratio Low 7 - 27 ratio AO ADM SS WBC (Bld) [#/Vol] 10.3 103/mcL Normal 4.6 - 10.8 10^3/mcL AO Workflow SS LABORATORYOrdered By: Bette Johns on 09-04-2023 Appearance (U) Slightly Cloudy *ABN* (09/04/23 4:47 PM) Invalid Interpretation Code Clear AO Auto Urine SS Bacteria LM.HPF (Urine sed) [#/Area] Trace /HPF Invalid Interpretation Code AO Auto Urine SS Bilirubin Ql (U) Negative (09/04/23 4:47 PM) Normal Negative AO Auto Urine SS Color (U) Yellow (09/04/23 4:47 PM) Normal AO Auto Urine SS Glucose Test strip (U) [Mass/Vol] Negative Normal Negative AO Auto Urine SS Hemoglobin Auto test strip (U) [Mass/Vol] Negative (09/04/23 4:47 PM) Normal Negative AO Auto Urine SS Ketones Ql (U) Negative Normal Negative AO Auto Ur ine SS UA Leuk Est Trace *ABN* (09/04/23 4:47 PM) Invalid Interpretation Code Negative AO Auto Urine SS UA Nitrite Negative (09/04/23 4:47 PM) Normal Negative AO Auto Urine SS UA pH 8.5 *ABN* (09/04/23 4:47 PM) Invalid Interpretation Code 5.0 - 8.0 AO Auto Urine SS UA Protein Negative Normal Negative AO Auto Urine SS UA RBC 0-5 /HPF Invalid Interpretation Code None Seen AO Auto Urine SS UA Spec Grav 1.020 (09/04/23 4:47 PM) Normal 1.015-1.025 AO Auto Urine SS UA Specimen Type Maynard Catheter (09/04/23 4:47 PM) Normal AO Auto Urine SS UA Squam Epithelial 5-10 /HPF Invalid Interpretation Code None Seen AO Auto Urine SS UA Urobilinogen 0.2 E.U./dL Normal 0.2-1.0 AO Auto Urine SS WBC LM.HPF (Urine sed) [#/Area] 0-5 /HPF Invalid Interpretation Code None Seen AO Auto Urine SS LIPon 09-04-2023 Lipase Level 26 U/L Normal 16-77 [facility] ([place]) Comment on above: Performed By: #### A HARSHAL, CBC, MDW, CMP, GFR, ADIFF, LIP #### [address] [address] UAon 09-04-2023 Color (U) Yellow Normal [facility] ([place]) Comment on above: Performed By: #### U A, UAMICAO #### [place] [address] Glucose (U) [Mass/Vol] Negative Normal Negative [facility] ([place]) Comment on above: Performed By: #### U A, UAMICAO #### [place] [address] Ketones Ql (U) Negative Normal Negative [facility] ([place]) Comment on above: Performed By: #### U A, UAMICAO #### [place] [address] UA Appear Slightly Cloudy Abnormal Clear [facility] ([place]) Comment on above: Performed By: #### U A, UAMICAO #### [address] [address] UA Blood Negative Normal Negative [facility] ([place]) Comment on above: Performed By: #### U A, UAMICAO #### [address] [address] UA Leuk Est Trace Abnormal Negative [facility] ([place]) Comment on above: Performed By: #### U A, UAMICAO #### [address] [address] UA Nitrite Negative Normal Negative [facility] ([place]) Comment on above: Performed By: #### U A, UAMICAO #### [place] [address] UA pH 8.5 Abnormal 5.0 - 8.0 [facility] ([place]) Comment on above: Performed By: #### U A, UAMICAO #### [place] [address] [place], [place] [address] UA Protein Negative Normal Negative [facility] ([place]) Comment on above: Performed By: #### U A, UAMICAO #### [address] [address] UA Spec Grav 1.020 Normal 1.015-1.025 [facility] ([place]) Comment on above: Performed By: #### U A, UAMICAO #### [address] [address] UA Specimen Type Maynard Catheter Normal [facility] ([place]) Comment on above: Performed By: #### U A, UAMICAO #### [address] [address] UA Urobilinogen 0.2 E.U./dL Normal 0.2-1.0 [facility] ([place]) Comment on above: Performed By: #### U A, UAMICAO #### [address] [address] Urobilinogen (U) [Mass/Vol] Negative Normal Negative [facility] ([place]) Comment on above: Performed By: #### U A, UAMICAO #### [address] [address] GEORGINAOVon 09-02-2023 CNOV Office Visit (UCWSTR) KALEN TORO ([id number]) 2000 F T Date Time Provider Department 09/02/23 2:30 PM [facility] During your visit today, we recorded the following information about you: Temperature Pulse Respiration Blood pressure 98.5 degrees 117/minute 20/minute 130/88 Weight 125.5 kg Daniella Padron PA-C 09/02/2023 2:55 PM Signed This note was created using [employer]. Subjective Kalen Toro is a 23 year old adult. HPI [...] TUBERCULIN SYRINGE 1 mL 25 gauge x 11/06 USE FOR WEEKLY SUBCUTANEOUS INJECTIONS omeprazole (PRILOSEC) [...] taking: Reported on 06/14/2021 ) No current facility-administere d medications for this visit. No past surgical [...] abdominal exam is benign. I will check ba (more content not included)... Normal [facility] ASSAY OF TESTOSTERONE TOTALo n 07-28-2023 Testosterone [Mass/Vol] 404 ng/dL High 13 - 71 ng/dL [facility] Phone: ASSAY OF TOTAL ESTRADIOLon 0 07-28-2023 E2 [Mass/Vol] 38.8 pg/mL [facility] Phone: CBC W Auto Differential pane l (Bld)on 07-28-2023 Basophils (Bld) [#/Vol] 0.1 10*3/uL 0.0 - 0.2 x10E3/uL [facility] Phone: Basophils/100 WBC (Bld) 1 % Not Estab. % [facility] Phone: Eosinophils (Bld) [#/Vol] 0.3 10*3/uL 0.0 - 0.4 x10E3/uL [facility] Phone: Eosinophils/100 WBC (Bld) 5 % Not Estab. % [facility] Phone: Erythrocyte distribution width (RBC) [Ratio] 13.9 % 11.7 - 15.4 % [facility] Phone: Hematocrit (Bld) [Volume fraction] 47.0 % High 34.0 - 46.6 % [facility] Phone: Hemoglobin (Bld) [Mass/Vol] 15.4 g/dL 11.1 - 15.9 g/dL [facility] Phone: Immature granulocytes (Bld) [#/Vol] 0.0 10*3/uL 0.0 - 0.1 x10E3/uL [employer] [facility] Phone: Immature granulocytes/100 WBC (Bld) 0 % Not Estab. % [employer] Work Phone: Lymphocytes (Bld) [#/Vol] 1.6 10*3/uL 0.7 - 3.1 x10E3/uL [employer] Work Phone: Lymphocytes/100 WBC (Bld) 22 % Not Estab. % [employer] Work Phone: MCH (RBC) [Entitic mass] 26.9 pg 26.6 - 33.0 pg [employer] Work Phone: MCHC (RBC) [Mass/Vol] 32.8 g/dL 31.5 - 35.7 g/dL [employer] Work Phone: MCV (RBC) [Entitic vol] 82 fL 79 - 97 fL [facility] [employer] Work Phone: Monocytes (Bld) [#/Vol] 0.6 10*3/uL 0.1 - 0.9 x10E3/uL [employer] Work Phone: Monocytes/100 WBC (Bld) 8 % Not Estab. % [facility] Phone: Neutrophils (Bld) [#/Vol] 4.7 10*3/uL 1.4 - 7.0 x10E3/uL [employer] Work Phone: Neutrophils/100 WBC (Bld) 64 % Not [employer] % [employer] Work Phone: Platelets (Bld) [#/Vol] 357 10*3/uL 150 - 450 x10E3/uL [employer] Work Phone: RBC (Bld) [#/Vol] 5.72 10*6/uL High 3.77 - 5.2 8 x10E6/uL [employer] Work Phone: WBC (Bld) [#/Vol] 7.4 10*3/uL 3.4 - 10.8 x10E3/uL [facility] Phone: COMPREHENSIVE METABOLIC PANE Edis 07-28-2023 Albumin [Mass/Vol] 4.6 g/dL 4.0 - 5.0 g/dL [facility] Phone: Albumin/Globulin [Mass ratio] 1.7 {ratio} 1.2 - 2.2 [facility] Phone: ALP [Catalytic activity/Vol] 105 U/L 44 - 121 IU/L [facility] Phone: ALT [Catalytic activity/Vol] 66 U/L High 0 - 32 IU/L [facility] Phone: AST [Catalytic activity/Vol] 43 U/L High 0 - 40 IU/L [facility] Phone: Bilirubin [Mass/Vol] 0.3 mg/dL 0.0 - 1 .2 mg/dL [facility] Phone: Calcium [Mass/Vol] 9.7 mg/dL 8.7 - 10. 2 mg/dL [facility] Phone: Chloride [Moles/Vol] 102 mmol/L 96 - 10 6 mmol/L [facility] Phone: CO2 [Moles/Vol] 24 mmol/L 20 - 29 mmol/L [facility] Phone: Creatinine [Mass/Vol] 0.95 mg/dL 0.57 - 1.00 mg/dL [facility] Phone: GFR/1.73 sq M.predicted among non-blacks MDRD (S/P/Bld) [Vol rate/Area] 86 mL/min/{1.73_m2} >59 mL/min/1.73 [facility] Phone: Globulin (S) [Mass/Vol] 2.7 g/dL 1.5 - 4.5 g/dL [facility] Phone: Glucose [Mass/Vol] 97 mg/dL 70 - 99 mg/dL [facility] Phone: Potassium [Moles/Vol] 4.8 mmol/L 3.5 - 5.2 mmol/L [facility] Phone: Protein [Mass/Vol] 7.3 g/dL 6.0 - 8.5 g/dL [facility] Phone: Sodium [Moles/Vol] 139 mmol/L 134 - 144 mmol/L [facility] Phone: Urea nitrogen [Mass/Vol] 9 mg/dL 6 - 20 mg/dL [facility] Phone: Urea nitrogen/Creatinine [Mass ratio] 9 mg/mg 9 - 23 [facility] Phone: HEMOGLOBIN GLYCOSYLATED A1Co 07-28-2023 HbA1c (Bld) [Mass fraction] 5.9 % High 4.8 - 5.6 % [facility] Phone: TSH REFLEX TO T4on 4 TSH Qn 2.380 uIU/mL 0.450 - 4.500 uIU/mL [facility] Phone: CNOVon 06-11-2023 CNOV Office Visit (UCWSTR) KALEN TORO ([id number]) 2000 F T Date Time Provider Department 06/11/23 4:45 PM SOWMYA VICK UCTR During your visit today, we recorded the following information about you: Temperature Pulse Respiration Blood pressure 98.2 degrees 110/minute 18/minute 137/86 Weight 124.6 kg Sowmya Vick PA 06/11/2023 4:29 PM Signed This note was created using [employer]. Subjective Kalen Toro is a 23 year old adult. HPI 23-year-old adult presents for sore throat, body aches x 3 days. Patient states they work at [employer]. He states that COVID and strep are going around the detention. Patient took a COVID test this morning [...] No past surgical history on file. ALLERGIES Oxycodone-Acetaminop hen, Seroquel [Quetiapine], and Zoloft [Sertraline Hcl] MEDICATIONS [...] J02.9 - suspect viral - Group A (more content not included)... Normal [facility] STREP A MOLECULAR (POC)on Procedural Control Valid [facility] Strep A (POCT) Negative Negative [facility] CT ANGIOGRAPHY CHEST W/CONTR Jimbo 02-15-2023 CT ANGIOGRAPHY CHEST W/CONTRAST ORIGINAL EXAMINATION: CTA OF THE CHEST02/14/2023 10:14 [...] Pedro Cortez DO Preliminary Report By: Kelvin Hoang Electronically signed By Pedro Cortez DO Dictated Date: 02/14/2023 10:40:06 PM Prelim Date: 02/14/2023 10:50:19 PM Sign Date: 02/14/2023 10:52:07 PM Ordering Provider: MAINE AQUINO [facility] [place] XR CHEST 1 VIEWon 02-15-2023 XR CHEST 1 VIEW ORIGINAL EXAMINATION: ONE XRAY VIEW OF THE [...] 02/14/2023 10:56:39 PM Ordering Provider: MAINE AQUINO [facility] ([place]) .Auto Diffon 02-14-2023 Basophil, Absolute 0.1 10 3/mcL Normal 0.0-0.2 [facility]) Comment on above: Performed By: #### M DW, ADIFF, ANEU, CBC, DIMER, BMP, GFR, TROPHS ####[place] [address] [place], [place] [address] Basophils/100 WBC (Bld) 1.1 % Normal 0.0-2.5 A [facility] ([place]) Comment on above: Performed By: #### M DW, ADIFF, ANEU, CBC, DIMER, BMP, GFR, TROPHS ####[address] [place], [place] [address] Eosinophil, Absolute 0.2 10 3/mcL Normal 0.0-0.4 [facility] ([place]) Comment on above: Performed By: #### M DW, ADIFF, ANEU, CBC, DIMER, BMP, GFR, TROPHS ####[place] [address] [place], [place] [address] Eosinophils/100 WBC (Bld) 1.8 % Normal 0.0-7.0 [facility] ([place]) Comment on above: Performed By: #### M DW, ADIFF, ANEU, CBC, DIMER, BMP, GFR, TROPHS ####[address] [place], [place] [address] Lymphocyte, Absolute 2.4 10 3/mcL Normal 0.8-3.9 [facility] ([place]) Comment on above: Performed By: #### M DW, ADIFF, ANEU, CBC, DIMER, BMP, GFR, TROPHS ####[address] [place], [place] [address] Lymphocytes/100 WBC (Bld) 22.2 % Normal 10.0-50.0 [facility] ([place]) Comment on above: Performed By: #### M DW, ADIFF, ANEU, CBC, DIMER, BMP, GFR, TROPHS ####[address] [place], [place] [address] Monocyte, Absolute 0.7 10 3/mcL Normal 0.2-1.0 [facility] ([place]) Comment on above: Performed By: #### M DW, ADIFF, ANEU, CBC, DIMER, BMP, GFR, TROPHS ####[address] [place], [place] [address] Monocytes/100 WBC (Bld) 6.4 % Normal 1.7-13.0 A [facility] ([place]) Comment on above: Performed By: #### M DW, ADIFF, ANEU, CBC, DIMER, BMP, GFR, TROPHS ####[address] [place], [place] [address] Neutrophils/100 WBC (Bld) 68.5 % Normal 37.0-80.0 [facility] ([place]) Comment on above: Performed By: #### M DW, ADIFF, ANEU, CBC, DIMER, BMP, GFR, TROPHS ####[address] [place], [place] [address] .GFRon 02-14-2023 GFR 96 ml/min/1.73sqm Normal [facility] ([place]) Comment on above: Result Comment: GFR Population mean for , Non- Americans Ages 20-29 = 116 mL/min/1.73 sq.m. Ages 30-39 = 107 mL/min/1.73 sq.m. Ages 40-49 = 99 mL/min/1.73 sq.m. Ages 50-59 = 93 mL/min/1.73 sq.m. Ages 60-69 = 85 mL/min/1.73 sq.m. Ages 70+ = 75 mL/min/1.73 sq.m. Chronic Kidney Disease: Less than 60 mL/min/1.73 square meters End Stage Renal Disease: Less than 15 mL/min/1.73 square meters Performed By: #### M DW, ADIFF, ANEU, CBC, DIMER, BMP, GFR, TROPHS ####[address] [place], [place] [address] GFR Non- 80 ml/min/1.73sqm Normal [facility] ([place]) Comment on above: Result Comment: GFR Population mean for , Non- Americans Ages 20-29 = 116 mL/min/1.73 sq.m. Ages 30-39 = 107 mL/min/1.73 sq.m. Ages 40-49 = 99 mL/min/1.73 sq.m. Ages 50-59 = 93 mL/min/1.73 sq.m. Ages 60-69 = 85 mL/min/1.73 sq.m. Ages 70+ = 75 mL/min/1.73 sq.m. Chronic Kidney Disease: Less than 60 mL/min/1.73 square meters End Stage Renal Disease: Less than 15 mL/min/1.73 square meters Performed By: #### M DW, ADIFF, ANEU, CBC, DIMER, BMP, GFR, TROPHS ####[address] [place], [place] [address] .MDWon 02-14-2023 Monocyte Distribution Width 17.47 Normal 0.00-20.00 [facility] ([place]) Comment on above: Result Comment: For ED adult patients suspected of sepsis, MDW<=20.0 does not rule out sepsis or risk of sepsis Performed By: #### M DW, ADIFF, ANEU, CBC, DIMER, BMP, GFR, TROPHS ####[address] [place], [place] [address] .NEUABSon 02-14-2023 Neutrophil, Absolute 7.6 10 3/mcL High 2.9-6.2 [facility] ([place]) Comment on above: Performed By: #### M DW, ADIFF, ANEU, CBC, DIMER, BMP, GFR, TROPHS ####[address] [place], [place] [address] BMPon 02-14-2023 BUN/Creatinine Ratio 7 ratio Normal 7-27 [facility] ([place]) Comment on above: Performed By: #### M DW, ADIFF, ANEU, CBC, DIMER, BMP, GFR, TROPHS ####[address] [place], [place] [address] Calcium [Mass/Vol] 9.2 mg/dL Normal 8.4-10.2 [facility] ([place]) Comment on above: Performed By: #### M DW, ADIFF, ANEU, CBC, DIMER, BMP, GFR, TROPHS ####[address] [place], [place] [address] Chloride [Moles/Vol] 101 mmol/L Normal 98-107 [facility] ([place]) Comment on above: Performed By: #### M DW, ADIFF, ANEU, CBC, DIMER, BMP, GFR, TROPHS ####[address] [place], [place] [address] CO2 [Moles/Vol] 29 mmol/L Normal 22-29 [facility] ([place]) Comment on above: Performed By: #### M DW, ADIFF, ANEU, CBC, DIMER, BMP, GFR, TROPHS ####[address] [place], [place] [address] Creatinine [Mass/Vol] 1.14 mg/dL Normal 0.70-1.30 [facility] ([place]) Comment on above: Performed By: #### M DW, ADIFF, ANEU, CBC, DIMER, BMP, GFR, TROPHS ####[address] [place], [place] [address] Electrolyte Balance 10.0 mEq/L Normal 4.0-15.0 [facility] ([place]) Comment on above: Performed By: #### M DW, ADIFF, ANEU, CBC, DIMER, BMP, GFR, TROPHS ####[address] [place], [place] [address] Glucose [Mass/Vol] 103 mg/dL Normal 70-105 [facility] ([place]) Comment on above: Performed By: #### M DW, ADIFF, ANEU, CBC, DIMER, BMP, GFR, TROPHS ####[address] [place], [place] [address] Potassium [Moles/Vol] 3.7 mmol/L Normal 3.5-5.1 [facility] ([place]) Comment on above: Performed By: #### M DW, ADIFF, ANEU, CBC, DIMER, BMP, GFR, TROPHS ####[address] [place], [place] [address] Sodium [Moles/Vol] 140 mmol/L Normal 136-145 [facility] [place]) Comment on above: Performed By: #### M DW, ADIFF, ANEU, CBC, DIMER, BMP, GFR, TROPHS ####[address] [place], [place] [address] Urea nitrogen [Mass/Vol] 8 mg/dL Normal 7-18 [facility] ([place]) Comment on above: Performed By: #### M DW, ADIFF, ANEU, CBC, DIMER, BMP, GFR, TROPHS ####[address] [place], [place] [address] CBCon 02-14-2023 Erythrocyte distribution width (RBC) [Ratio] 15.6 % High 11.5-14.5 [facility] ([place]) Comment on above: Performed By: #### M DW, ADIFF, ANEU, CBC, DIMER, BMP, GFR, TROPHS ####[address] [place], [place] [address] Hematocrit (Bld) [Volume fraction] 46.2 % Normal 42.0-52.0 [facility] ([place]) Comment on above: Performed By: #### M DW, ADIFF, ANEU, CBC, DIMER, BMP, GFR, TROPHS ####[address] [place], [place] [address] Hgb 15.3 G/dL Normal 14.0-18.0 [facility] ([place]) Comment on above: Performed By: #### M DW, ADIFF, ANEU, CBC, DIMER, BMP, GFR, TROPHS ####[address] [place], [place] [address] MCH (RBC) [Entitic mass] 27.3 pg Normal 27.0-31.2 [facility] ([place]) Comment on above: Performed By: #### M DW, ADIFF, ANEU, CBC, DIMER, BMP, GFR, TROPHS ####[address] [place], [place] [address] MCHC 33.1 G/dL Normal 31.8-35.4 [facility] ([place]) Comment on above: Performed By: #### M DW, ADIFF, ANEU, CBC, DIMER, BMP, GFR, TROPHS ####[address] [place], [place] [address] MCV (RBC) [Entitic vol] 82.5 fL Normal 80.0-94.0 A [facility] ([place]) Comment on above: Performed By: #### M DW, ADIFF, ANEU, CBC, DIMER, BMP, GFR, TROPHS ####[address] [place], [place] [address] Platelet 341 10 3/mcL Normal 130-400 [facility] ([place]) Comment on above: Performed By: #### M DW, ADIFF, ANEU, CBC, DIMER, BMP, GFR, TROPHS ####[address] [place], [place] [address] Platelet mean volume (Bld) [Entitic vol] 7.5 fL Normal 7.4-10.4 [facility] ([place]) Comment on above: Performed By: #### M DW, ADIFF, ANEU, CBC, DIMER, BMP, GFR, TROPHS ####[address] [place], [place] [address] RBC 5.61 10 6/mcL Normal 4.04-6.13 [facility] ([place]) Comment on above: Performed By: #### M DW, ADIFF, ANEU, CBC, DIMER, BMP, GFR, TROPHS ###[address] [place], [place] [address] WBC 11.0 10 3/mcL High 4.6-10.8 [facility] ([place]) Comment on above: Performed By: #### M DW, ADIFF, ANEU, CBC, DIMER, BMP, GFR, TROPHS ####[address] [place], [place] [address] DIMERon 02-14-2023 D-Dimer 233 ng/mL D-DU High 0-230 [facility] ([place]) Comment on above: Result Comment: The result of the D-Dimer test should be evaluated in the context of all the clinical and laboratory data available. In those instances where the laboratory result does not agree with the clinical evaluation, additional tests should be performed accordingly. If the D-Dimer result is used to exclude DVT or PE, the recommended cutoff value is less than 230 ng/mL. The D-Dimer result should not be used alone to rule in DVT/PE, but should be used in conjunction with a clinical pretest probability (PTP)assessment model to exclude venous thromboembolism (VTE) in outpatients suspected of deep venous thrombosis (DVT) and pulmonary embolism (PE). Performed By: #### M DW, ADIFF, ANEU, CBC, DIMER, BMP, GFR, TROPHS ####[address] [place], [place] [address] LABORATORYOrdered By: SYSTEM SYSTEM on 02-14-2023 Basophil, Absolute 0.1 103/mcL Invalid Interpretation Code 0.0 - 0.2 10^3/mcL AO Workflow SS Basophils/100 WBC (Bld) 1.1 % Invalid Interpretation Code 0.0 - 2.5 % AO Workflow SS Calcium [Mass/Vol] 9.2 mg/dL Invalid Interpretation Code 8.4 - 10.2 mg/dL AO ADM SS Chloride [Moles/Vol] 101 mmol/L Invalid Interpretation Code 98 - 107 mmol/L AO ADM SS CO2 [Moles/Vol] 29 mmol/L Invalid Interpretation Code 22 - 29 mmol/L AO ADM SS Creatinine [Mass/Vol] 1.14 mg/dL Invalid Interpretation Code 0.70 - 1.30 mg/dL AO ADM SS Electrolyte Balance 10.0 mEq/L Invalid Interpretation Code 4.0 - 15.0 mEq/L AO ADM SS Eosinophil, Absolute 0.2 103/mcL Invalid Interpretation Code 0.0 - 0.4 10^3/mcL AO Workflow SS Eosinophils/100 WBC (Bld) 1.8 % Invalid Interpretation Code 0.0 - 7.0 % AO Workflow SS Erythrocyte distribution width (RBC) [Ratio] 15.6 % Invalid Interpretation Code 11.5 - 14.5 % AO Workflow SS GFR/1.73 sq M.predicted among blacks MDRD (S/P/Bld) [Vol rate/Area] 96 ml/min/1.73sqm Invalid Interpretation Code AO Chemistry S Comment on above: Interpretive Data: GFR Population mean for , Non- Americans Ages 20-29 = 116 mL/min/1.73 sq.m. Ages 30-39 = 107 mL/min/1.73 sq.m. Ages 40-49 = 99 mL/min/1.73 sq.m. Ages 50-59 = 93 mL/min/1.73 sq.m. Ages 60-69 = 85 mL/min/1.73 sq.m. Ages 70+ = 75 mL/min/1.73 sq.m. Chronic Kidney Disease: Less than 60 mL/min/1.73 square meters End Stage Renal Disease: Less than 15 mL/min/1.73 square meters GFR/1.73 sq M.predicted among non-blacks MDRD (S/P/Bld) [Vol rate/Area] 80 ml/min/1.73sqm Invalid Interpretation Code AO Chemistry S Comment on above: Interpretive Data: GFR Population mean for , Non- Americans Ages 20-29 = 116 mL/min/1.73 sq.m. Ages 30-39 = 107 mL/min/1.73 sq.m. Ages 40-49 = 99 mL/min/1.73 sq.m. Ages 50-59 = 93 mL/min/1.73 sq.m. Ages 60-69 = 85 mL/min/1.73 sq.m. Ages 70+ = 75 mL/min/1.73 sq.m. Chronic Kidney Disease: Less than 60 mL/min/1.73 square meters End Stage Renal Disease: Less than 15 mL/min/1.73 square meters Glucose [Mass/Vol] 103 mg/dL Invalid Interpretation Code 70 - 105 mg/dL AO ADM SS Hematocrit (Bld) [Volume fraction] 46.2 % Invalid Interpretation Code 42.0 - 52.0 % AO Workflow SS Hemoglobin (Bld) [Mass/Vol] 15.3 G/dL Invalid Interpretation Code 14.0 - 18.0 G/dL AO Workflow SS Lymphocyte, Absolute 2.4 103/mcL Invalid Interpretation Code 0.8 - 3.9 10^3/mcL AO Workflow SS Lymphocytes/100 WBC (Bld) 22.2 % Invalid Interpretation Code 10.0 - 50.0 % AO Workflow SS MCH (RBC) [Entitic mass] 27.3 pg Invalid Interpretation Code 27.0 - 31.2 pg AO Workflow SS MCHC 33.1 G/dL Invalid Interpretation Code 31.8 - 35.4 G/dL AO Workflow SS MCV (RBC) [Entitic vol] 82.5 fL Invalid Interpretation Code 80.0 - 94.0 fL AO Workflow SS Monocyte distribution width Auto (Bld) [Entitic vol] 17.47 1 Invalid Interpretation Code 0.00 - 20.00 AO Workflow SS Comment on above: Result Comment: For ED adult patients suspected of sepsis, MDW<=20.0 does not rule out sepsis or risk of sepsis Monocyte, Absolute 0.7 103/mcL Invalid Interpretation Code 0.2 - 1.0 10^3/mcL AO Workflow SS Monocytes/100 WBC (Bld) 6.4 % Invalid Interpretation Code 1.7 - 13.0 % AO Workflow SS Neutrophil, Absolute 7.6 103/mcL Invalid Interpretation Code 2.9 - 6.2 10^3/mcL AO Workflow SS Neutrophils/100 WBC (Bld) 68.5 % Invalid Interpretation Code 37.0 - 80.0 % AO Workflow SS Platelet mean volume (Bld) [Entitic vol] 7.5 fL Invalid Interpretation Code 7.4 - 10.4 fL AO Workflow SS Platelets (Bld) [#/Vol] 341 103/mcL Invalid Interpretation Code 130 - 400 10^3/mcL AO Workflow SS Potassium [Moles/Vol] 3.7 mmol/L Invalid Interpretation Code 3.5 - 5.1 mmol/L AO ADM SS RBC (Bld) [#/Vol] 5.61 106/mcL Invalid Interpretation Code 4.04 - 6.13 10^6/mcL AO Workflow SS Sodium [Moles/Vol] 140 mmol/L Invalid Interpretation Code 136 - 145 mmol/L AO ADM SS Troponin I.cardiac DL <= 0.01 ng/mL [Mass/Vol] 4.9 ng/L Invalid Interpretation Code 0.0 - 76.2 ng/L AO ADM SS Urea nitrogen [Mass/Vol] 8 mg/dL Invalid Interpretation Code 7 - 18 mg/dL AO ADM SS Urea nitrogen/Creatinine [Mass ratio] 7 ratio Invalid Interpretation Code 7 - 27 ratio AO ADM SS WBC (Bld) [#/Vol] 11.0 103/mcL Invalid Interpretation Code 4.6 - 10.8 10^3/mcL AO Workflow SS LABORATORYOrdered By: Bette Johns on 02-14-2023 Fibrin D-dimer DDU (PPP) [Mass/Vol] 233 ng/mL D-DU Invalid Interpretation Code 0 - 230 ng/mL D-DU AO [facility] SS Comment on above: Interpretive Data: T he result of the D-Dimer test should be evaluated in the context of all the clinical and laboratory data available. In those instances where the laboratory result does not agree with the clinical evaluation, additional tests should be performed accordingly. If the D-Dimer result is used to exclude DVT or PE, the recommended cutoff value is less than 230 ng/mL. The D-Dimer result should not be used alone to rule in DVT/PE, but should be used in conjunction with a clinical pretest probability (PTP)assessment model to exclude venous thromboembolism (VTE) in outpatients suspected of deep venous thrombosis (DVT) and pulmonary embolism (PE). Patrice 02-14-2023 Troponin I High Sensitivity 4.9 ng/L Normal 0.0-76.2 [facility] ([place]) Comment on above: Performed By: #### M DW, ADIFF, ANEU, CBC, DIMER, BMP, GFR, TROPHS ####[address] [place], [place] [address] 36on 10-07-2022 36 S: Patient called the clinical access center with complaint of pelvic pain. B: Not an established patient A: Patient currently at work, sitting down, got an extremely sharp pain in pelvic area and a little bleeding with it, bleeding started about 30 minutes, bright red spotting, saw [employer] a month ago and was referred to Dr. Jo on 09/21/22 due to pelvic pain and perineal pain, states pain has been getting worse since yesterday, now severe. R: Patient advised to contact [employer] or go to ED for evaluation. Reason for Disposition [1] SEVERE pelvic pain AND [2] present > 1 hour Protocols used: Pelvic Pain - [id number] [facility] SHS Absolute lymphocyte countOrd ered By: Dr. Quintanilla on 10-07-2022 Lymphocytes Auto (Unsp spec) [#/Vol] 2.37 10*3/uL 0.83-4.51 [facility] Basophil percentageOrdered B y: Dr. Quintanilla on 10-07-2022 Basophils/100 WBC (Bld) 1.1 % 0-1 [facility] Chloride [Moles/Vol] 103 mmol/L 98-107 [facility] Eosinophils/100 WBC (Bld) 4.2 % 0-5 [facility] Glucose [Mass/Vol] 100 mg/dL 74-106 [facility] Comment on above: Fasting Glucose resu lt from 100 to 125 mg/dL suggests IMPAIRED HOMEOSTASIS per A.D.A. criteria. Neutrophils (Bld) [#/Vol] 5.1 10*3/uL 2.0-7.7 [facility] Neutrophils/100 WBC (Bld) 59.2 % 47-70 [facility] Potassium [Moles/Vol] 3.6 mmol/L 3.5-5.1 [facility] Sodium [Moles/Vol] 138 mmol/L 136-145 [facility] WBC (Bld) [#/Vol] 8.6 10*3/uL 4.4-11.0 [facility] Basophil percentage 0 SEEN /hpf 0-5 [facility] Bilirubin Test strip Ql (U)O rdered By: Dr. Quintanilla on 10-07-2022 Bilirubin Ql (U) Negative Negative [facility] Blood erythrocytes count (nu mber/volume)Ordered By: Dr. Quintanilla on 10-07-2022 RBC (Bld) [#/Vol] 5.76 10*6/uL 4.2-5.4 [facility] Blood hemoglobin measurement (mass/volume)Ordered By: Dr. Quintanilla on 10-07-2022 Hemoglobin (Bld) [Mass/Vol] 15.8 g/dL 12.0-15.0 [facility] Blood lymphocytes/100 leukoc ytesOrdered By: Dr. Quintanilla on 10-07-2022 Lymphocytes/100 WBC (Bld) 27.7 % 19-41 [facility] Blood monocytes/100 leukocyt esOrdered By: Dr. Quintanilla on 10-07-2022 Monocytes/100 WBC (Bld) 7.6 % 0-10 [facility] Blood platelet adequacy dete ction by light microscopyOrdered By: Dr. Quintanilla on 10-07-2022 Platelets LM Ql (Bld) ADEQUATE ADEQ [facility] Blood platelet mean volumeOr dered By: Dr. Quintanilla on 10-07-2022 Platelet mean volume (Bld) [Entitic vol] 9.9 fL 6.2-12.0 [facility] Blood platelet morphology de termination (nominal result)Ordered By: Dr. Quintanilla on 10-07-2022 Platelet morphology finding Nom (Bld) LARGE [facility] Determination of erythrocyte mean corpuscular volume (MCV)Ordered By: Dr. Quintanilla on 10-07-2022 MCV (RBC) [Entitic vol] 85.1 fL 81-99 [facility] Hematocrit Auto (Bld) [Volum e fraction]Ordered By: Dr. Quintanilla on 10-07-2022 Hematocrit (Bld) [Volume fraction] 49.0 % 37-47 [facility] Ketones Test strip Ql (U)Ord ered By: Dr. Quintanilla on 10-07-2022 Ketones Ql (U) Negative Negative [facility] Laboratory - Chemistry and C hemistry - challengeOrdered By: Dr. Quintanilla on 10-07-2022 CO2 [Moles/Vol] 28.0 mmol/L 21.0-32.0 [facility] Urea nitrogen/Creatinine [Mass ratio] 10.1 mg/mg 10-20 [facility] Laboratory - Hematology and Cell countsOrdered By: Dr. Quintanilla on 10-07-2022 Erythrocyte distribution width (RBC) [Entitic vol] 43.6 fL 35.1-43.9 [facility] Erythrocyte distribution width (RBC) [Ratio] 14.2 % 11.6-14.6 [facility] Immature granulocytes/100 WBC (Bld) 0.200 % 0.0-0.9 [facility] Comment on above: IG% - Immature Granu locytes (promyelocytes, myelocytes and metamyelocytes) > 1% indicates that a LEFT SHIFT is Present. MCH (RBC) [Entitic mass] 27.4 pg 27.0-32.0 [facility] Nucleated RBC/100 WBC (Bld) [Ratio] 0 % 0-5 [facility] MCHC Auto (RBC) [Mass/Vol]Or dered By: Dr. Quintanilla on 10-07-2022 MCHC (RBC) [Mass/Vol] 32.2 g/dL 32-36 [facility] Mucus LM Ql (Urine sed)Order ed By: Dr. Quintanilla on 10-07-2022 Mucus Ql (Urine sed) 0 SEEN /hpf [facility] Nitrite Test strip Ql (U)Ord ered By: Dr. Quintanilla on 10-07-2022 Nitrite Ql (U) Negative Negative [facility] No Panel InformationOrdered By: Dr. Quintanilla on 10-07-2022 Estimated Creatinine Clearance Calc 89.15 ml/min [facility] Estimated GFR (MDRD) Amer 89 mL/min >60 [facility] Comment on above: GFR Calc Estimated GFR (MDRD) Non-Af Amer 73 mL/min >60 [facility] Comment on above: Non- GFR Calc Platelets bldOrdered By: Dr. Quintanilla on 10-07-2022 Platelets (Bld) [#/Vol] 193 10*3/uL 150-450 [facility] Protein Test strip Ql (U)Ord ered By: Dr. Quintanilla on 10-07-2022 Protein Ql (U) Negative Negative [facility] RBC morphologyOrdered By: Dr Charlette Quintanilla on 10-07-2022 RBC morphology finding Nom (Bld) NORM C+C NORMAL NORM C&C [facility] Serum or plasma calcium yung urement (mass/volume)Ordered By: Dr. Quintanilla on 10-07-2022 Calcium [Mass/Vol] 9.5 mg/dL 8.5-10.1 [facility] Serum or plasma creatinine m easurement (mass/volume)Ordered By: Dr. Quintanilla on 10-07-2022 Creatinine [Mass/Vol] 0.99 mg/dL 0.55-1.02 [facility] Comment on above: The validity of the calculated GFR & GFRAA in patients over 70 years has not been determined. Clinical correlation is essential. Serum or plasma urea nitroge n measurement (mass/volume)Ordered By: Dr. Quintanilla on 10-07-2022 Urea nitrogen [Mass/Vol] 10 mg/dL 7-18 [facility] Squamous epithelial cells de tection in urine sediment by light microscopyOrdered By: Dr. Quintanilla on 10-07-2022 Epithelial cells.squamous LM Ql (Urine sed) 0 SEEN /hpf 5-10 [facility] Thin prep Papanicolaou smear with manual screeningOrdered By: Dr. Quintanilla on 10-07-2022 Thin prep Papanicolaou smear with manual screening 7 5-15 [facility] Urine blood detectionOrdered By: Dr. Quintanilla on 10-07-2022 RBC Ql (U) Negative Negative [facility] RBC Ql (U) 0 SEEN /hpf 0-5 [facility] Urine clarityOrdered By: Dr. Quintanilla on 10-07-2022 Clarity (U) Clear Clear [facility] Urine color determinationOrd ered By: Dr. Quintanilla on 10-07-2022 Color (U) Yellow Yellow [facility] Urine glucose detectionOrder ed By: Dr. Quintanilla on 10-07-2022 Glucose Ql (U) Normal mg/dl Normal [facility] Urine leukocyte esterase det ection by dipstickOrdered By: Dr. Quintanilla on 10-07-2022 Leukocyte esterase Test strip Ql (U) 25 /ul Negative [facility] Urine pHOrdered By: Dr. Ness batres on 10-07-2022 pH (U) 6.5 [pH] 5.0 - 8.0 [facility] Urine sediment bacteria coun t by microscopy (number/high power field)Ordered By: Dr. Quintanilla on 10-07-2022 Bacteria LM.HPF (Urine sed) [#/Area] 0 /[HPF] None Seen [facility] Urine specific gravity measu rementOrdered By: Dr. Quintanilla on 10-07-2022 Specific gravity (U) [Rel density] 1.015 1.002-1.030 [facility] Urobilinogen Auto test strip Ql (U)Ordered By: Dr. Quintanilla on 10-07-2022 Urobilinogen Ql (U) Normal mg/dl Normal [facility] ASSAY OF TESTOSTERONE TOTALo n 09-29-2022 Testosterone [Mass/Vol] 723 ng/dL High 13 - 71 ng/dL [facility] Phone: CBC W Auto Differential pane l (Bld)on 09-29-2022 Basophils (Bld) [#/Vol] 0.1 10*3/uL 0.0 - 0.2 x10E3/uL [facility] Phone: Basophils/100 WBC (Bld) 1 % Not Estab. % [facility] Phone: Eosinophils (Bld) [#/Vol] 0.2 10*3/uL 0.0 - 0.4 x10E3/uL [facility] Phone: Eosinophils/100 WBC (Bld) 3 % Not Estab. % [facility] Phone: Erythrocyte distribution width (RBC) [Ratio] 13.8 % 11.7 - 15.4 % [facility] Phone: Hematocrit (Bld) [Volume fraction] 47.0 % High 34.0 - 46.6 % [facility] Phone: Hemoglobin (Bld) [Mass/Vol] 15.6 g/dL 11.1 - 15.9 g/dL [facility] Phone: Immature granulocytes (Bld) [#/Vol] 0.0 10*3/uL 0.0 - 0.1 x10E3/uL [facility] Phone: Immature granulocytes/100 WBC (Bld) 0 % Not Estab. % [facility] Phone: Lymphocytes (Bld) [#/Vol] 1.8 10*3/uL 0.7 - 3.1 x10E3/uL [employer] Work Phone: Lymphocytes/100 WBC (Bld) 23 % Not Estab. % [facility] Work Phone: MCH (RBC) [Entitic mass] 27.5 pg 26.6 - 33.0 pg [facility] Work Phone: MCHC (RBC) [Mass/Vol] 33.2 g/dL 31.5 - 35.7 g/dL [facility] Work Phone: MCV (RBC) [Entitic vol] 83 fL 79 - 97 fL [facility] [employer] Work Phone: Monocytes (Bld) [#/Vol] 0.6 10*3/uL 0.1 - 0.9 x10E3/uL [facility] Work Phone: Monocytes/100 WBC (Bld) 7 % Not Estab. % [facility] Work Phone: Neutrophils (Bld) [#/Vol] 5.4 10*3/uL 1.4 - 7.0 x10E3/uL [facility] [facility] Work Phone: Neutrophils/100 WBC (Bld) 66 % Not Estab. % [facility] Phone: Platelets (Bld) [#/Vol] 292 10*3/uL 150 - 450 x10E3/uL [facility] [facility] Work Phone: RBC (Bld) [#/Vol] 5.67 10*6/uL High 3.77 - 5.2 8 x10E6/uL [facility] Work Phone: WBC (Bld) [#/Vol] 8.1 10*3/uL 3.4 - 10.8 x10E3/uL [facility] Work Phone: COMPREHENSIVE METABOLIC PANE Edis 09-29-2022 Albumin [Mass/Vol] 4.4 g/dL 3.9 - 5.0 g/dL [facility] Phone: Albumin/Globulin [Mass ratio] 1.9 {ratio} 1.2 - 2.2 [facility] Phone: ALP [Catalytic activity/Vol] 74 U/L 44 - 121 IU/L [facility] Phone: ALT [Catalytic activity/Vol] 24 U/L 0 - 32 IU/L [facility] Phone: AST [Catalytic activity/Vol] 22 U/L 0 - 40 IU/L [facility] Phone: Bilirubin [Mass/Vol] 0.5 mg/dL 0.0 - 1 .2 mg/dL [facility] Phone: Calcium [Mass/Vol] 9.5 mg/dL 8.7 - 10. 2 mg/dL [facility] Phone: Chloride [Moles/Vol] 102 mmol/L 96 - 10 6 mmol/L [facility] Phone: CO2 [Moles/Vol] 24 mmol/L 20 - 29 mmol/L [facility] Phone: Creatinine [Mass/Vol] 0.98 mg/dL 0.57 - 1.00 mg/dL [facility] Phone: GFR/1.73 sq M.predicted among non-blacks MDRD (S/P/Bld) [Vol rate/Area] 83 mL/min/{1.73_m2} >59 mL/min/1.73 [facility] Phone: Globulin (S) [Mass/Vol] 2.3 g/dL 1.5 - 4.5 g/dL [facility] Phone: Glucose [Mass/Vol] 71 mg/dL 70 - 99 mg/dL [facility] Phone: Potassium [Moles/Vol] 4.2 mmol/L 3.5 - 5.2 mmol/L [facility] Phone: Protein [Mass/Vol] 6.7 g/dL 6.0 - 8.5 g/dL [facility] [facility] Work Phone: Sodium [Moles/Vol] 139 mmol/L 134 - 144 mmol/L [facility] Work Phone: Urea nitrogen [Mass/Vol] 9 mg/dL 6 - 20 mg/dL [facility] Work Phone: Urea nitrogen/Creatinine [Mass ratio] 9 mg/mg 9 - 23 [facility] [facility] Work Phone: RFLX - URINALYSIS MICROSCOPI Con 09-29-2022 Bacteria LM.HPF (Urine sed) [#/Area] None seen None seen/Few [facility] Work Phone: Casts LM Ql (Urine sed) None seen None seen /lpf [facility] Work Phone: Epithelial cells LM.HPF (Urine sed) [#/Area] None seen 0 - 10 /hpf [facility] [facility] Work Phone: RBC LM.HPF (Urine sed) [#/Area] 0-2 0 - 2 /hpf [facility] Work Phone: WBC LM.HPF (Urine sed) [#/Area] None seen 0 - 5 /hpf [facility] [facility] Work Phone: URINALYSIS, COMPLETE W/REFLE X TO CULTUREon 09-29-2022 Appearance (U) Clear Clear [facility] [facility] Work Phone: Bilirubin Ql (U) Negative Negative [facility] [facility] Work Phone: Color (U) Yellow Yellow [facility] [facility] Work Phone: Glucose Ql (U) Negative Negative [facility] [facility] Work Phone: Hemoglobin Ql (U) Negative Negative [facility] Work Phone: Ketones Ql (U) Negative Negative [facility] Phone: Leukocyte esterase Test strip Ql (U) Negative Negative [facility] Phone: Microscopic observation LM Nom (Urine sed) [facility] Phone: Microscopic observation LM Nom (Urine sed) See below: [facility] Phone: Nitrite Ql (U) Negative Negative [facility] Phone: pH (U) 7.5 [pH] 5.0 - 7.5 [facility] Phone: Protein Ql (U) Negative Negative/Tra ce [facility] Phone: Specific gravity (U) [Rel density] 1.011 1.005 - 1.030 [facility] Phone: URINALYSIS REFLEX [facility] Phone: Urobilinogen (U) [Mass/Vol] 0.2 mg/dL 0.2 - 1.0 mg/dL [facility] Phone: Glucose Glucometer (BldC) [M ass/Vol]on 01-12-2022 Glucose [Mass/Vol] 107 mg/dL 74-106 [facility] Work Phone: Comment on above: MANAGEMENT OF PATIEN T CARE PER NURSING PROTOCOL Laboratory - Chemistry and C hemistry - challengeon 01-12-2022 HCG ( test) Ql (U) Negative [facility] Work Phone: Comment on above: Very dilute urine sp ecimens, as indicated by a low specificgravity, may not contain sales representative printing paper levels of hCG. If is still suspected, a first morning urinespecimen should be collected 48 hours later and tested. Basophil percentageon 2021 WBC (Bld) [#/Vol] 9.3 10*3/uL 4.4-11.0 [facility] Work Phone: Blood erythrocytes count (nu mber/volume)on 01-05-2022 RBC (Bld) [#/Vol] 5.25 10*6/uL 4.2-5.4 [facility] Work Phone: Blood hemoglobin measurement (mass/volume)on 01-05-2022 Hemoglobin (Bld) [Mass/Vol] 14.5 g/dL 12.0-15.0 [facility] Work Phone: Blood platelet mean volumeon 01-05-2022 Platelet mean volume (Bld) [Entitic vol] 9.5 fL 6.2-12.0 [facility] Work Phone: Determination of erythrocyte mean corpuscular volume (MCV)on 01-05-2022 MCV (RBC) [Entitic vol] 88.8 fL 81-99 [facility] Work Phone: Hematocrit Auto (Bld) [Volum e fraction]on 01-05-2022 Hematocrit (Bld) [Volume fraction] 46.6 % 37-47 [facility] Work Phone: Laboratory - Chemistry and C hemistry - challengeon 01-05-2022 Magnesium [Mass/Vol] 1.8 mg/dL 1.6-2.6 [facility] Work Phone: Laboratory - Hematology and Cell countson 01-05-2022 Erythrocyte distribution width (RBC) [Entitic vol] 50.3 fL 35.1-43.9 [facility] Work Phone: Erythrocyte distribution width (RBC) [Ratio] 15.2 % 11.6-14.6 [facility] Work Phone: MCH (RBC) [Entitic mass] 27.6 pg 27.0-32.0 [facility] Work Phone: MCHC Auto (RBC) [Mass/Vol]on 01-05-2022 MCHC (RBC) [Mass/Vol] 31.1 g/dL 32-36 [facility] Work Phone: Platelets bldon 01-05-2022 Platelets (Bld) [#/Vol] 292 10*3/uL 150-450 [facility] Work Phone: Vital Signs Date Time Vital Sign Value Performing Clinician Facility 04-09-2025 10:17-0400 Body weight 81.19 kg Andrew Turpin APRN, CNP Work Phone: [facility] [facility] Work Phone: 05-12-2024 08:33-0500 Body height 172.7 cm Andrew Turpin APRN, CNP Work Phone: [facility] Work Phone: 05-12-2024 08:33-0500 Body weight 95.25 kg Andrew Turpin APRN, CNP Work Phone: [facility] Work Phone: 04-24-2024 10:20-0400 Body height 172.7 cm Andrew Turpin APRN, CNP Work Phone: [facility] Work Phone: 04-24-2024 10:20-0400 Body temperature 97.5 [degF] Andrew Turpin APRN, CNP Work Phone: [facility] Work Phone: 04-24-2024 10:20-0400 Body weight 100.61 kg Andrew Turpin APRN, CNP Work Phone: [facility] Work Phone: 04-24-2024 10:20-0400 Diastolic blood pressure 78 mm[Hg] Andrew Turpin APRN, CNP Work Phone: [facility] Work Phone: 04-24-2024 10:20-0400 Heart rate 100 /min Andrew Turpin APRN, CNP Work Phone: [facility] Work Phone: 04-24-2024 10:20-0400 Respiratory rate 16 /min Andrewsayda Turpin APRN, CNP Work Phone: [facility] Work Phone: 04-24-2024 10:20-0400 SaO2% (BldA) [Mass fraction] 98 % Andrewsayda Turpin APRN, CNP Work Phone: [facility] [facility] Work Phone: 04-24-2024 10:20-0400 Systolic blood pressure 116 mm[Hg] Andrewsayda Turpin APRN, CNP Work Phone: [facility] [facility] Work Phone: 01-23-2024 09:49-0400 Body height 172.7 cm Andrewsayda Turpin APRN, CNP Work Phone: [facility] Work Phone: 01-23-2024 09:49-0400 Body temperature 97.7 [degF] Andrewsayda Turpin APRN, CNP Work Phone: [facility] Work Phone: 01-23-2024 09:49-0400 Body weight 110.77 kg Andrewsayda Turpin APRN, CNP Work Phone: [facility] Work Phone: 01-23-2024 09:49-0400 Diastolic blood pressure 76 mm[Hg] Andrew Turpin APRN, CNP Work Phone: [facility] Work Phone: 01-23-2024 09:49-0400 Heart rate 93 /min Andrew Turpin APRN, CNP Work Phone: [facility] [facility] Work Phone: 01-23-2024 09:49-0400 Respiratory rate 16 /min Andrew Trupin APRNSURFACE SUPPLY BREATHING APPARATUS Work Phone: [facility] [facility] Work Phone: 01-23-2024 09:49-0400 SaO2% (BldA) [Mass fraction] 97 % Andrew Turpin ZACARIAS,SUR[employer]ATHING [employer] Work Phone: [facility] [facility] Work Phone: 01-23-2024 09:49-0400 Systolic blood pressure 122 mm[Hg] Andrew Turpin ZACARIAS,[employer] Work Phone: [facility] Work Phone: 09-04-2023 19:23-0500 Diastolic Blood Pressure Non-Invasive 67 mm[Hg] FIDEL REICHFIELD DO [facility] 09-04-2023 19:23-0500 Heart rate 84 /min FIDEL REICHFIELD DO [facility] 09-04-2023 19:23-0500 Respiratory rate 18 /min FIDEL REICHFIELD DO [facility] 09-04-2023 19:23-0500 Systolic Blood Pressure Non-Invasive 127 mm[Hg] FIDEL REICHFIELD DO [facility] 09-04-2023 17:30-0500 Diastolic Blood Pressure Non-Invasive 74 mm[Hg] FIDEL REICHFIELD DO [facility] 09-04-2023 17:30-0500 Heart rate 102 /min FIDEL REICHFIELD DO [facility] 09-04-2023 17:30-0500 Respiratory rate 16 /min FIDEL REICHFIELD DO [facility] 09-04-2023 17:30-0500 Systolic Blood Pressure Non-Invasive 132 mm[Hg] FIDEL REICHFIELD DO [facility] 09-04-2023 16:24-0500 Body temperature 98.24 [degF] FIDEL REICHFIELD DO [facility] 09-04-2023 16:24-0500 Body weight 125 kg FIDEL REICHFIELD DO [facility] 09-04-2023 16:24-0500 Diastolic Blood Pressure Non-Invasive 84 mm[Hg] FIDEL REICHFIELD DO [facility] 09-04-2023 16:24-0500 Heart rate 113 /min FIDEL REICHFIELD DO [facility] 09-04-2023 16:24-0500 Respiratory rate 16 /min FIDEL REICHFIELD DO [facility] 09-04-2023 16:24-0500 Systolic Blood Pressure Non-Invasive 129 mm[Hg] FIDEL REICHFIELD DO [facility] 09-02-2023 14:36-0500 Body temperature 98.49 [degF] Daniella Athy PA-C Work Phone: [facility] 09-02-2023 14:36-0500 Body weight 125.47 kg Daniella Athy PA-C Work Phone: [facility] 09-02-2023 14:36-0500 Diastolic blood pressure 88 mm[Hg] Daniella Athy PA-C Work Phone: [facility] 09-02-2023 14:36-0500 Heart rate 117 /min Daniella Athy PA-C Work Phone: [facility] 09-02-2023 14:36-0500 Respiratory rate 20 /min Daniella Athy PA-C Work Phone: [facility] 09-02-2023 14:36-0500 SaO2% (BldA) [Mass fraction] 97 % Daniella Athy PA-C Work Phone: [facility] 09-02-2023 14:36-0500 Systolic blood pressure 130 mm[Hg] Daniella Padron PA-C Work Phone: [facility] 08-08-2023 11:01-0500 Body height 172.7 cm Andrew Turpin APRN, CNP Work Phone: [facility] [facility] Work Phone: 08-08-2023 11:01-0500 Body temperature 97.7 [degF] Andrew Turpin APRN, CNP Work Phone: [facility] Work Phone: 08-08-2023 11:01-0500 Body weight 127.46 kg Andrew Turpin APRN, CNP Work Phone: [facility] Work Phone: 08-08-2023 11:01-0500 Diastolic blood pressure 96 mm[Hg] Andrew Turpin APRN, CNP Work Phone: [facility] Work Phone: 08-08-2023 11:01-0500 Respiratory rate 16 /min Andrew Turpin APRN, CNP Work Phone: [facility] Work Phone: 08-08-2023 11:01-0500 Systolic blood pressure 135 mm[Hg] Andrew Turpin APRN, CNP Work Phone: [facility] Work Phone: 07-27-2023 09:49-0500 Body height 172.7 cm Margarita Kelly APRN, CNP Work Phone: [facility] Work Phone: 07-27-2023 09:49-0500 Body weight 129.28 kg Margarita Kelly APRN, CNP Work Phone: [facility] Work Phone: 07-27-2023 09:49-0500 Diastolic blood pressure 92 mm[Hg] Margarita Kelly APRN,[employer] Work Phone: [facility] Work Phone: 07-27-2023 09:49-0500 Heart rate 82 /min Margarita Kelly APRN,[employer] Work Phone: [facility] Work Phone: 07-27-2023 09:49-0500 Respiratory rate 16 /min Margarita Kelly APRN,[employer] Work Phone: [facility] [facility] Work Phone: 07-27-2023 09:49-0500 SaO2% (BldA) [Mass fraction] 99 % Margarita Kelly APRN,[employer] Work Phone: [facility] [facility] Work Phone: 07-27-2023 09:49-0500 Systolic blood pressure 156 mm[Hg] Margarita Kelly APRN,[employer] Work Phone: [facility] [facility] Work Phone: 06-11-2023 16:13-0500 Body temperature 98.2 [degF] Krislyn Aberegg PA Work Phone: [facility] 06-11-2023 16:13-0500 Body weight 124.65 kg Krislyn Aberegg PA Work Phone: [facility] 06-11-2023 16:13-0500 Diastolic blood pressure 86 mm[Hg] Krislyn Aberegg PA Work Phone: [facility] 06-11-2023 16:13-0500 Heart rate 110 /min Krislyn Aberegg PA Work Phone: [facility] 06-11-2023 16:13-0500 Respiratory rate 18 /min Krislyn Aberegg PA Work Phone: [facility] 06-11-2023 16:13-0500 SaO2% (BldA) [Mass fraction] 99 % Sowmya AGUDELO Work Phone: [facility] 06-11-2023 16:13-0500 Systolic blood pressure 137 mm[Hg] Sowmya Vick PA Work Phone: [facility] 02-14-2023 23:00-0400 Diastolic Blood Pressure Non-Invasive [address] MAINE AQUINO MD [facility] 02-14-2023 23:00-0400 Heart rate 86 /min DR MAINE AQUINO MD [facility] 02-14-2023 23:00-0400 Systolic Blood Pressure Non-Invasive [address] MAINE AQUINO MD [facility] 02-14-2023 22:06-0400 Diastolic Blood Pressure Non-Invasive [address] MAINE AQUINO MD [facility] 02-14-2023 22:06-0400 Heart rate 82 /min DR MAINE AQUINO MD [facility] 02-14-2023 22:06-0400 Respiratory rate 20 /min DR MAINE AQUINO MD [facility] 02-14-2023 22:06-0400 Systolic Blood Pressure Non-Invasive [address] MAINE AQUINO MD [facility] 02-14-2023 20:26-0400 Body height 172.[address] MAINE AQUINO MD [facility] 02-14-2023 20:26-0400 Body temperature 98.24 [degF] DR MAINE AQUINO MD [facility] 02-14-2023 20:26-0400 Body weight 113.[address] MAINE AQUINO MD [facility] 02-14-2023 20:26-0400 Diastolic Blood Pressure Non-Invasive [address] MAINE AQUINO MD [facility] 02-14-2023 20:26-0400 Heart rate 115 /min DR MAINE AQUINO MD [facility] 02-14-2023 20:26-0400 Systolic Blood Pressure Non-Invasive [address] MAINE AQUINO MD [facility] 10-07-2022 19:15-0400 Heart rate 67 /min [facility] 10-07-2022 19:15-0400 Respiratory rate 18 /min [facility] 10-07-2022 19:15-0400 SaO2% (BldA) [Mass fraction] 99 % [facility] 10-07-2022 17:02-0400 Body height 172.72 cm [facility] 10-07-2022 17:02-0400 Body mass index (BMI) [Ratio] 40.6 kg/m2 [facility] 10-07-2022 17:02-0400 Body temperature 97.6 [degF] [facility] 10-07-2022 17:02-0400 Body weight 121.42 kg [facility] 10-07-2022 17:02-0400 Diastolic blood pressure 89 mm[Hg] [facility] 10-07-2022 17:02-0400 Systolic blood pressure 164 mm[Hg] [facility] 09-28-2022 12:53-0400 Body height 168.3 cm Annamaria AGUDELO Work Phone: [facility] Work Phone: 09-28-2022 12:53-0400 Body temperature 97.9 [degF] Annamaria AGUDELO Work Phone: [facility] [facility] Work Phone: 09-28-2022 12:53-0400 Body weight 120.66 kg Annamaria AGUDELO Work Phone: [facility] Work Phone: 09-28-2022 12:53-0400 Diastolic blood pressure 82 mm[Hg] Annamaria Healy PA Work Phone: [facility] Work Phone: 09-28-2022 12:53-0400 Heart rate 98 /min Annamaria Healy PA Work Phone: [facility] Work Phone: 09-28-2022 12:53-0400 Respiratory rate 16 /min Annamaria Healy PA Work Phone: [facility] Work Phone: 09-28-2022 12:53-0400 SaO2% (BldA) [Mass fraction] 99 % Annamaria Healy PA Work Phone: [facility] Work Phone: 09-28-2022 12:53-0400 Systolic blood pressure 118 mm[Hg] Annamaria Healy PA Work Phone: [facility] Work Phone: 01-12-2022 15:34-0400 Body temperature 98 [degF] [facility] Work Phone: 01-12-2022 15:34-0400 Diastolic blood pressure 78 mm[Hg] [facility] Work Phone: 01-12-2022 15:34-0400 Heart rate 78 /min [facility] Work Phone: 01-12-2022 15:34-0400 Respiratory rate 16 /min [facility] Work Phone: 01-12-2022 15:34-0400 SaO2% (BldA) [Mass fraction] 98 % [facility] Work Phone: 01-12-2022 15:34-0400 Systolic blood pressure 134 mm[Hg] [facility] Work Phone: 01-12-2022 14:25-0400 Inhaled oxygen flow rate 4 L/min [facility] Work Phone: 01-12-2022 09:44-0400 Body height 172.72 cm [facility] Work Phone: 01-12-2022 09:44-0400 Body mass index (BMI) [Ratio] 38.1 kg/m2 [facility] Work Phone: 01-12-2022 09:44-0400 Body weight 113.85 kg [facility] Work Phone: 11-04-2021 19:44-0400 Body mass index (BMI) [Ratio] 36.5 kg/m2 [facility] Work Phone: 11-04-2021 19:44-0400 Body temperature 97.6 [degF] [facility] Work Phone: 11-04-2021 19:44-0400 Body weight 108.86 kg [facility] Work Phone: 11-04-2021 19:44-0400 Diastolic blood pressure 91 mm[Hg] [facility] Work Phone: 11-04-2021 19:44-0400 Heart rate 100 /min [facility] Work Phone: 11-04-2021 19:44-0400 Respiratory rate 16 /min [facility] Work Phone: 11-04-2021 19:44-0400 SaO2% (BldA) [Mass fraction] 100 % [facility] Work Phone: 11-04-2021 19:44-0400 Systolic blood pressure 165 mm[Hg] [facility] Work Phone: Encounters Encounter Date Encounter Type Care Provider Facility Start: 04-27-2025 End: 04-27-2025 Office outpatient visit 25 minutes Ajit Paulino APRN Work Phone: [facility] [place] Start: 04-24-2025 End: 04-24-2025 ambulatory Ajit Paulino APRN Work Phone: [facility] Start: 04-24-2025 End: 04-24-2025 Chart abstracting Ajit Paulino APRN Work Phone: [facility] Start: 04-17-2025 ambulatory DAYRON CURATI Facility:[facility] Start: 04-09-2025 End: 04-09-2025 Office outpatient visit 25 minutes Andrew Turpin APRN, CNP Work Phone: [facility] Start: 04-08-2025 End: 04-08-2025 ambulatory Ajit Paulino APRN Work Phone: [facility] Start: 04-08-2025 End: 04-08-2025 Chart abstracting Ajit Paulino APRN Work Phone: [facility] Start: 03-30-2025 End: 03-30-2025 Office outpatient visit 25 minutes Ajit Paulino APRN Work Phone: [facility] Start: 03-24-2025 End: 03-24-2025 ambulatory Álvaro V Sibilia Facility:[facility] Start: 03-16-2025 End: 03-16-2025 Office outpatient visit 25 minutes Ajit Paulino APRN Work Phone: [facility] Start: 03-11-2025 End: 03-11-2025 ambulatory Ajit Paulino APRN Work Phone: [facility] Start: 03-11-2025 End: 03-11-2025 Chart abstracting Ajit Paulino APRN Work Phone: [facility] Start: 02-24-2025 End: 02-24-2025 Office outpatient visit 25 minutes Ajit Paulino APRN Work Phone: [facility] Start: 02-07-2025 End: 02-07-2025 Emergency department patient visit JOSE CRUZ GARCIA [facility] Start: 01-20-2025 End: 01-20-2025 Office outpatient visit 25 minutes Ajit Paulino APRN Work Phone: [facility] [place] Start: 11-06-2024 End: 11-06-2024 Office outpatient visit 15 minutes Ajit Paulino APRN Work Phone: [facility] [place] Comment on above: Schizoaffective diso rder, bipolar type (HCC-CMS) (Primary Dx); PTSD (post-traumatic stress disorder); Insomnia disorder, persistent, with mental disorder; Attention deficit hyperactivity disorder (ADHD), predominantly inattentive type; Daytime hypersomnolence; Generalized anxiety disorder Start: 10-09-2024 End: 10-09-2024 Office outpatient visit 15 minutes Ajit Paulino APRN Work Phone: [facility] [place] Comment on above: Schizoaffective diso rder, bipolar type (HCC-CMS) (Primary Dx); PTSD (post-traumatic stress disorder); Insomnia disorder, persistent, with mental disorder; Attention deficit hyperactivity disorder (ADHD), predominantly inattentive type; Daytime hypersomnolence; Generalized anxiety disorder Start: 09-15-2024 End: 09-15-2024 Office outpatient visit 25 minutes Andrew Turpin APRN, CNP Work Phone: [facility] Comment on above: Weight gain due to m edication (Primary Dx); Gender dysphoria; Prediabetes; Pain; Diarrhea, unspecified type Start: 08-26-2024 End: 08-26-2024 Office outpatient visit 15 minutes Ajit Paulino APRN Work Phone: [facility] Comment on above: Schizoaffective diso rder, bipolar type (HCC-CMS) (Primary Dx); PTSD (post-traumatic stress disorder); Generalized anxiety disorder; Insomnia disorder, persistent, with mental disorder; Attention deficit hyperactivity disorder (ADHD), predominantly inattentive type Start: 07-15-2024 End: 07-15-2024 Office outpatient visit 15 minutes Ajit Paulino APRN Work Phone: [facility] Comment on above: Schizoaffective diso rder, bipolar type (HCC-CMS) (Primary Dx); Attention deficit hyperactivity disorder (ADHD), predominantly inattentive type; PTSD (post-traumatic stress disorder); Generalized anxiety disorder; Insomnia disorder, persistent, with mental disorder Start: 06-10-2024 End: 06-10-2024 Office outpatient visit 25 minutes Andrew Turpin APRN,ERICH Work Phone: [facility] Comment on above: Weight gain due to m edication (Primary Dx); Prediabetes; Pain; Weakness Start: 06-09-2024 End: 06-09-2024 Office outpatient visit 25 minutes jAit Paulino APRN Work Phone: [facility] Comment on above: Schizoaffective diso rder, bipolar type (HCC-CMS) (Primary Dx); Attention deficit hyperactivity disorder (ADHD), predominantly inattentive type; PTSD (post-traumatic stress disorder); Generalized anxiety disorder; Insomnia disorder, persistent, with mental disorder Start: 05-27-2024 End: 05-27-2024 ambulatory [facility] Start: 05-22-2024 End: 05-22-2024 Office outpatient visit 25 minutes Andrew Turpin APRN,ERICH Work Phone: [facility] Comment on above: Pain (Primary Dx); Weakness Start: 05-22-2024 End: 05-25-2025 ambulatory [facility] [employer] Start: 05-13-2024 End: 05-13-2024 Office outpatient visit 25 minutes Ajit Paulino APRN Work Phone: [facility] Comment on above: Schizoaffective diso rder, bipolar type (HCC-CMS) (Primary Dx); Attention deficit hyperactivity disorder (ADHD), predominantly inattentive type; PTSD (post-traumatic stress disorder); Generalized anxiety disorder; Insomnia disorder, persistent, with mental disorder Start: 05-12-2024 End: 05-12-2024 Office outpatient visit 25 minutes Andrew Turpin APRN, CNP Work Phone: [facility] Comment on above: Weakness (Primary Dx ) Start: 04-29-2024 End: 04-29-2024 ambulatory [facility] Start: 04-29-2024 End: 04-30-2024 ambulatory [facility] Start: 04-24-2024 End: 04-24-2024 Office outpatient visit 25 minutes Andrew Turpin APRN, CNP Work Phone: [facility] Comment on above: Gender dysphoria (Pr imary Dx); Urinary retention; Screening for ischemic heart disease; Prediabetes; Intractable chronic migraine with aura with status migrainosus; Obesity, Class III, BMI 40-49.9 (morbid obesity) (HCC-CMS) Start: 04-22-2024 End: 04-22-2024 Office outpatient visit 25 minutes Ajit Paulino APRN Work Phone: [facility] Comment on above: Schizoaffective diso rder, bipolar type (HCC-CMS) (Primary Dx); Attention deficit hyperactivity disorder (ADHD), predominantly inattentive type; PTSD (post-traumatic stress disorder); Generalized anxiety disorder; Insomnia disorder, persistent, with mental disorder Start: 04-07-2024 End: 04-07-2024 [facility] Start: 04-02-2024 End: 04-02-2024 Telephone encounter Ajit Paulino APRN Work Phone: [facility] Comment on above: Attention deficit hy peractivity disorder (ADHD), predominantly inattentive type Start: 03-18-2024 End: 03-18-2024 Office outpatient visit 25 minutes Ajit Paulino APRN Work Phone: [facility] Comment on above: Schizoaffective diso rder, bipolar type (HCC-CMS) (Primary Dx); Attention deficit hyperactivity disorder (ADHD), predominantly inattentive type; PTSD (post-traumatic stress disorder); Generalized anxiety disorder; Insomnia disorder, persistent, with mental disorder Start: 01-28-2024 End: 01-28-2024 Office outpatient visit 25 minutes Ajit Paulino APRN Work Phone: [facility] Comment on above: Schizoaffective diso rder, bipolar type (HCC-CMS) (Primary Dx); Attention deficit hyperactivity disorder (ADHD), predominantly inattentive type; PTSD (post-traumatic stress disorder); Generalized anxiety disorder; Insomnia disorder, persistent, with mental disorder Start: 01-23-2024 End: 01-23-2024 [facility] Work [facility]: [facility] Comment on above: Weight gain due to m edication (Primary Dx); Other migraine with status migrainosus, intractable; Diarrhea, unspecified type; Prediabetes; Gender dysphoria Start: 12-31-2023 End: 12-31-2023 Office outpatient visit 25 minutes Ajit Paulino APRN Work Phone: [facility] Comment on above: Schizoaffective diso rder, bipolar type (HCC-CMS) (Primary Dx); Attention deficit hyperactivity disorder (ADHD), predominantly inattentive type; PTSD (post-traumatic stress disorder); Generalized anxiety disorder; Insomnia disorder, persistent, with mental disorder; Therapeutic drug monitoring Start: 12-03-2023 End: 12-03-2023 Office outpatient visit 25 minutes Ajit Paulino APRN Work Phone: [facility] Comment on above: Schizoaffective diso rder, bipolar type (HCC-CMS) (Primary Dx); Attention deficit hyperactivity disorder (ADHD), predominantly inattentive type; PTSD (post-traumatic stress disorder); Generalized anxiety disorder; Insomnia disorder, persistent, with mental disorder Start: 10-30-2023 End: 10-30-2023 [facility] Start: 10-22-2023 End: 10-22-2023 Office outpatient visit 25 minutes Ajit Paulino APRN Work Phone: [facility] Comment on above: Schizoaffective diso rder, bipolar type ([facility]) (Primary Dx); Attention deficit hyperactivity disorder (ADHD), predominantly inattentive type; PTSD (post-traumatic stress disorder); Generalized anxiety disorder; Insomnia disorder, persistent, with mental disorder Start: 10-08-2023 End: 10-08-2023 Office outpatient visit 25 minutes Andrew Turpin APRN, CNP Work Phone: [facility] Comment on above: Intractable chronic migraine with aura with status migrainosus (Primary Dx); Prediabetes; Obesity, Class III, BMI 40-49.9 (morbid obesity) ([facility]) Start: 09-14-2023 End: 09-14-2023 Office outpatient visit 25 minutes Andrew Turpin APRN, CNP Work Phone: [facility] Comment on above: Other migraine with status migrainosus, intractable (Primary Dx) Start: 09-04-2023 End: 09-04-2023 Emergency department patient visit NOT RECORDED PHYSICIAN Facility:[facility] Start: 09-04-2023 End: 09-04-2023 Emergency department patient visit FIDEL SANCHEZ [facility] Start: 09-02-2023 End: 09-02-2023 ambulatory Facility:[facility] Start: 09-02-2023 End: 09-02-2023 Patient encounter procedure Daniella Padron PA-C Work Phone: [facility] Comment on above: Nausea and vomiting, unspecified vomiting type (Primary Dx) Start: 08-08-2023 End: 08-08-2023 Office outpatient visit 25 minutes Andrew Turpin APRN, CNP Work Phone: [facility] Comment on above: Elevated liver enzym es (Primary Dx); Diarrhea, unspecified type; Prediabetes; Obesity, Class III, BMI 40-49.9 (morbid obesity) ([facility]); Gender dysphoria; Screening for ischemic heart disease; Pelvic pain Start: 07-27-2023 End: 07-27-2023 Office outpatient visit 15 minutes Margarita Kelly APRN, CNP Work Phone: [facility] Comment on above: Gender dysphoria (Pr imary Dx); Acne vulgaris; Prediabetes; Screening for thyroid disorder; Obesity, Class III, BMI 40-49.9 (morbid obesity) (HCC-CMS); Transaminitis Start: 06-11-2023 End: 06-11-2023 ambulatory Facility:[facility] Start: 06-11-2023 End: 06-11-2023 Patient encounter procedure Sowmya AGUDELO Work Phone: [facility] Comment on above: Sore throat (Primary Dx) Start: 05-17-2023 End: 05-17-2023 Office outpatient visit 15 minutes Margarita Kelly APRN, CNP Work Phone: [facility] Comment on above: Gender dysphoria (Pr imary Dx) Start: 04-20-2023 End: 04-20-2023 Office outpatient visit 15 minutes Ajit Paulino APRN Work Phone: [facility] Comment on above: R/o Bipolar 2 disord er (HCC-CMS) (Primary Dx); R/o Schizoaffective disorder, bipolar type (HCC-CMS); Attention deficit hyperactivity disorder (ADHD), predominantly inattentive type; PTSD (post-traumatic stress disorder) Start: 02-14-2023 End: 02-15-2023 Emergency department patient visit DR MAINE AQUINO MD Facility:[facility] Start: 02-14-2023 End: 02-14-2023 Emergency department patient visit DR MAINE AQUINO MD [facility] Start: 02-13-2023 End: 02-13-2023 Office outpatient visit 25 minutes Ajit Paulino APRN Work Phone: [facility] Comment on above: Bipolar 2 disorder ( HCC-CMS) (Primary Dx); Schizoaffective disorder, bipolar type (HCC-CMS); Attention deficit hyperactivity disorder (ADHD), predominantly inattentive type; PTSD (post-traumatic stress disorder); R/o Schizoaffective disorder, bipolar type (HCC-CMS); Insomnia disorder, persistent, with mental disorder Start: 01-11-2023 End: 01-11-2023 Office outpatient visit 40 minutes Ajit Paulino APRN Work Phone: [facility] Comment on above: PTSD (post-traumatic stress disorder) (Primary Dx); Bipolar 2 disorder (HCC-CMS); R/o Schizoaffective disorder, bipolar type (HCC-CMS); Attention deficit hyperactivity disorder (ADHD), predominantly inattentive type Start: 11-30-2022 ambulatory Magdi ANDRADE Work Phone: [facility] Start: 10-24-2022 End: 10-24-2022 Office outpatient visit 25 minutes Silvia Moore APRN, CNP Work Phone: [facility] Comment on above: PTSD (post-traumatic stress disorder); Bipolar 2 disorder (HCC-CMS); Attention deficit hyperactivity disorder (ADHD), predominantly inattentive type Start: 10-07-2022 End: 10-07-2022 Emergency department patient visit [facility] Start: 10-07-2022 ambulatory Suzanne Stanford C linical Communication Start: 10-07-2022 Patient encounter procedure Suzanne Stanford Clinical Communication Start: 10-02-2022 Preprocedural examin ation done Annamaria AGUDELO Work Phone: [facility] Work Phone: Start: 09-28-2022 End: 09-28-2022 Office outpatient visit 25 minutes Annamaria AGUDELO Work Phone: [facility] Comment on above: Preop examination (P rimary Dx); Gender dysphoria; Prediabetes; Smoking; Weight gain due to medication; Acne vulgaris; Pelvic pain Start: 09-28-2022 End: 09-28-2022 Preprocedural examination done Annamaria AGUDELO Work Phone: [facility] Work Phone: Start: 09-21-2022 End: 09-21-2022 Office outpatient visit 25 minutes Silvia Moore APRN,[employer] Work Phone: [facility] Comment on above: Bipolar 2 disorder ( HCC-CMS) (Primary Dx); Attention deficit hyperactivity disorder (ADHD), predominantly inattentive type; PTSD (post-traumatic stress disorder); Abnormal movements; History of suicide attempt; Weight gain due to medication; Medication management Start: 09-18-2022 ambulatory Magdi Guzman [employer] Work Phone: [facility] Start: 08-25-2022 End: 08-25-2022 Office outpatient visit 15 minutes Annamaria AGUDELO Work Phone: [facility] Comment on above: Obesity, Class III, BMI 40-49.9 (morbid obesity) (HCC-CMS) (Primary Dx); Prediabetes Start: 08-18-2022 ambulatory Magdi Guzman [employer] Work Phone: [facility] Start: 08-14-2022 End: 08-14-2022 Office outpatient visit 25 minutes Silvia Moore APRN,[employer] Work Phone: [facility] Comment on above: Bipolar 2 disorder ( HCC-CMS) (Primary Dx); Attention deficit hyperactivity disorder (ADHD), predominantly inattentive type; Weight gain due to medication; Abnormal movements; Medication management; PTSD (post-traumatic stress disorder) Start: 01-12-2022 End: 01-12-2022 Admission to same day surgery center [facility] Start: 11-04-2021 End: 11-04-2021 Emergency department patient visit [facility] Start: 06-02-2018 Emergency department patient visit TONIE CRUZ [facility] Procedures Date Procedure Procedure Detail Performing Clinician Start: 04-24-2024 Lipid 1996 panel - S beni or Plasma Andrew Turpin APRN,ERICH Work Phone: Start: 09-24-2023 End: 09-24-2023 Psychotherapy w/patient w/e&m srvcs 30 min Schizoaffective disorder, bipolar type (HCC-CMS) Ajit Paulino APRN Work Phone: Comment on above: Schizoaffective diso rder, bipolar type (HCC-CMS) (Primary Dx); Attention deficit hyperactivity disorder (ADHD), predominantly inattentive type; PTSD (post-traumatic stress disorder); Insomnia disorder, persistent, with mental disorder; Generalized anxiety disorder Start: 09-06-2023 End: 09-06-2023 Psychotherapy w/patient w/e&m srvcs 30 min Schizoaffective disorder, bipolar type (HCC-CMS) Ajit Paulino APRN Work Phone: Comment on above: Schizoaffective diso rder, bipolar type (HCC-CMS) (Primary Dx); Attention deficit hyperactivity disorder (ADHD), predominantly inattentive type; PTSD (post-traumatic stress disorder); Insomnia disorder, persistent, with mental disorder; Generalized anxiety disorder Start: 08-08-2023 Lipid 1996 panel - S beni or Plasma Ajit Paulino APRN Work Phone: Start: 07-27-2023 End: 07-27-2023 Comprehensive metabolic panel Margarita Kelly APRN, CNP Work Phone: Start: 07-03-2023 End: 07-03-2023 Psychotherapy w/patient w/e&m srvcs 30 min Schizoaffective disorder, bipolar type (HCC-CMS) Ajit Paulino APRN Work Phone: Comment on above: Schizoaffective diso rder, bipolar type (HCC-CMS) (Primary Dx); Attention deficit hyperactivity disorder (ADHD), predominantly inattentive type; PTSD (post-traumatic stress disorder) Start: 06-11-2023 STREP A MOLECULAR (POC) Daniella Padron PA-C Work Phone: Start: 10-07-2022 CT of abdomen and pe lvis without contrast Start: 09-28-2022 Comprehensive metabo lic panel Annamaria AGUDELO Work Phone: Start: 09-28-2022 Urnls dip stick/tabl et reagent auto microscopy Annamaria AGUDELO Work Phone: Start: 09-28-2022 Lipid 1996 panel - S beni or Plasma Annamaria AGUDELO Work Phone: Start: 06-02-2022 Lipid 1996 panel - S beni or Plasma Silvia Moore APRN, CNP Work Phone: Start: 05-16-2022 Microscopic observat ion [Identifier] in Cervix by Cyto stain Silvia Moore APRN, CNP Work Phone: Start: 01-18-2022 H/O: hysterectomy S/P laparosc opic hysterectomy Silvia Moore APRN, CNP Work Phone: Start: 01-12-2022 Abdominal hysterecto my with conservation of ovaries Plan of Treatment Date Care Activity Detail Author Start: 2049 Zoster Vaccines (1 of 2) Zoste r Vaccines (1 of 2) [facility] Start: 02-28-2028 Tetanus vaccination Imm-DTaP/T dap/Td (3 - Td or Tdap) [facility] Start: 04-24-2027 Lipid panel Lipid Screening [facility] Start: 04-09-2026 Relationship Safety Screening/Counseling Relationship Safety Screening/Counseling [facility] Start: 04-09-2026 Tobacco use cessatio n education Tobacco Cessation Counseling (#1) [facility] Start: 02-24-2026 Tobacco use cessatio n education Tobacco Cessation Counseling (#1) [facility] Start: 01-20-2026 Tobacco use cessatio n education Tobacco Cessation Counseling (#1) [facility] Start: 11-06-2025 Tobacco use cessatio n education Tobacco Cessation Counseling (#1) [facility] Start: 10-09-2025 Tobacco use cessatio n education Tobacco Cessation Counseling (#1) [facility] Start: 09-16-2025 Tobacco use cessatio n education Tobacco Cessation Counseling (#1) [facility] Start: 08-26-2025 Tobacco use cessatio n education Tobacco Cessation Counseling (#1) [facility] Start: 07-15-2025 Tobacco use cessatio n education Tobacco Cessation Counseling (#1) [facility] Start: 06-10-2025 Tobacco use cessatio n education Tobacco Cessation Counseling (#1) [facility] Start: 06-09-2025 Tobacco use cessatio n education Tobacco Cessation Counseling (#1) [facility] Start: 05-22-2025 Tobacco use cessatio n education Tobacco Cessation Counseling (#1) [facility] Start: 05-16-2025 Screening for malign ant neoplasm of cervix [facility] Start: 05-13-2025 Tobacco use cessatio n education Tobacco Cessation Counseling (#1) [facility] Start: 05-12-2025 Tobacco use cessatio n education Tobacco Cessation Counseling (#1) [facility] Start: 04-29-2025 Diabetes mellitus screening Diabetes Screening [facility] Start: 04-24-2025 Anxiety Screening Anxiety Screening [facility] Start: 04-24-2025 Hypertension screening Hyperte nsion Screening (#1) [facility] Start: 04-24-2025 Lipid panel Lipid Screening [facility] Start: 04-24-2025 Tobacco use cessatio n education Tobacco Cessation Counseling (#1) [facility] Start: 04-22-2025 Tobacco use cessatio n education Tobacco Cessation Counseling (#1) [facility] Start: 03-18-2025 Tobacco use cessatio n education Tobacco Cessation Counseling (#1) [facility] Start: 03-02-2025 [id number]-56 ( season) [id number]-LBODD-31 ( season) [facility] Start: 03-02-2025 Vtt-[id number]-25 ( season) [id number]-44 ( season) [facility] Start: 03-02-2025 Influenza vaccination Imm-Influenza (#1) [facility] Start: 01-27-2025 Tobacco use cessatio n education Tobacco Cessation Counseling (#1) [facility] Start: 01-22-2025 Diabetes mellitus screening Diabetes Screening [facility] Start: 01-22-2025 Hypertension screening Hyperte nsion Screening (#1) [facility] Start: 01-22-2025 Relationship Safety Screening/Counseling Relationship Safety Screening/Counseling [facility] Start: 01-22-2025 Tobacco use cessatio n education Tobacco Cessation Counseling (#1) [facility] Start: 12-02-2024 Tobacco use cessatio n education Tobacco Cessation Counseling (#1) [facility] Start: 10-21-2024 Tobacco use cessatio n education Tobacco Cessation Counseling (#1) [facility] Start: 10-07-2024 Tobacco use cessatio n education Tobacco Cessation Counseling (#1) [facility] Start: 09-23-2024 Tobacco use cessatio n education Tobacco Cessation Counseling (#1) [facility] Start: 09-17-2024 End: 03-15-2025 Assay of estradiol ASSAY OF TOTAL ESTRADIOL Lab Routine Gender dysphoria Expected: 09/17/2024, Expires: 03/15/2025 [facility] Phone: Comment on above: Expected: 09/17/2024 , Expires: 03/15/2025 Start: 09-17-2024 End: 03-15-2025 Assay of testosterone total ASSAY OF TESTOSTERONE TOTAL Lab Routine Gender dysphoria Expected: 09/17/2024, Expires: 03/15/2025 [facility] Phone: Comment on above: Expected: 09/17/2024 , Expires: 03/15/2025 Start: 09-17-2024 End: 03-15-2025 CBC W Auto Differential panel - Blood BLOOD COUNT COMPLETE AUTO&AUTO DIFRNTL WBC Lab Routine Prediabetes Expected: 09/17/2024, Expires: 03/15/2025 [facility] Phone: Comment on above: Expected: 09/17/2024 , Expires: 03/15/2025 Start: 09-17-2024 End: 03-15-2025 Comprehensive metabolic panel COMPREHENSIVE METABOLIC PANEL Lab Routine Prediabetes Expected: 09/17/2024, Expires: 03/15/2025 [facility] Work Phone: Comment on above: Expected: 09/17/2024 , Expires: 03/15/2025 Start: 09-13-2024 Tobacco use cessatio n education Tobacco Cessation Counseling (#1) [facility] Start: 09-05-2024 Tobacco use cessatio n education Tobacco Cessation Counseling (#1) [facility] Start: 09-04-2024 Depression Monitoring Depression Mon itoring [facility] Start: 08-08-2024 Diabetes mellitus screening Diabetes Screening [facility] Start: 08-08-2024 Lipid panel Lipid Screening [facility] Start: 08-07-2024 Hypertension screening Hyperte nsion Screening (#1) [facility] Start: 08-07-2024 Tobacco use cessatio n education Tobacco Cessation Counseling (#1) [facility] Start: 07-27-2024 Diabetes mellitus screening Diabetes Screening [facility] Start: 07-26-2024 Hypertension screening Hyperte nsion Screening (#1) [facility] Start: 07-26-2024 Tobacco use cessatio n education Tobacco Cessation Counseling (#1) [facility] Start: 07-02-2024 Screening for substa nce abuse Alcohol and Drug Screen [facility] Start: 05-16-2024 Tobacco use cessatio n education Tobacco Cessation Counseling (#1) [facility] Start: 04-03-2024 Tobacco Screening Tobacco Screening [facility] Start: 04-02-2024 Tobacco use cessatio n education Tobacco Cessation Counseling (#1) [facility] Start: 03-02-2024 [id number]-10 () [id number]-50 () [facility] Start: 03-02-2024 [id number]-85 () Rxi-[id number]-46 () [facility] Start: 03-02-2024 Influenza vaccination [facility] Start: 02-13-2024 Tobacco use cessatio n education Tobacco Cessation Counseling (#1) [facility] Start: 01-11-2024 Tobacco use cessatio n education Tobacco Cessation Counseling (#1) [facility] Start: 11-06-2023 Depression Monitoring Depression Mon itoring [facility] Start: 10-24-2023 Tobacco use cessatio n education Tobacco Cessation Counseling (#1) [facility] Start: 09-29-2023 Diabetes mellitus screening Diabetes Screening [facility] Start: 09-29-2023 Lipid panel Lipid Screening [facility] Start: 09-28-2023 Hypertension screening Hyperte nsion Screening (#1) [facility] Start: 09-28-2023 Tobacco use cessatio n education Tobacco Cessation Counseling (#1) [facility] Start: 09-21-2023 Tobacco use cessatio n education Tobacco Cessation Counseling (#1) [facility] Start: 09-02-2023 End: 09-04-2023 CBC W Auto Differential panel - Blood CBC + DIFF Lab STAT Nausea and vomiting, unspecified vomiting type Expected: 09/02/2023, Expires: 09/04/[address] [facility] Work Phone: Comment on above: Expected: 09/02/2023 , Expires: 09/04/2023 Start: 09-02-2023 End: 09-04-2023 Comprehensive metabolic 2000 panel - Serum or Plasma COMP METABOLIC PANEL Lab STAT Nausea and vomiting, unspecified vomiting type Expected: 09/02/2023, Expires: 09/04/2023 [facility] Work Phone: Comment on above: Expected: 09/02/2023 , Expires: 09/04/2023 Start: 09-02-2023 End: 09-04-2023 Lipase [Enzymatic activity/volume] in Serum or Plasma LIPASE BLD Lab STAT Nausea and vomiting, unspecified vomiting type Expected: 09/02/2023, Expires: 09/04/[address] [facility] Work Phone: Comment on above: Expected: 09/02/2023 , Expires: 09/04/2023 Start: 08-17-2023 Depression Monitoring Depression Mon [facility] Start: 08-14-2023 End: 01-27-2024 Assay of glutamyltrase gamma ASSAY OF GLUTAMYLTRASE GAMMA Lab Routine Transaminitis Expected: 08/14/2023 (Approximate), Expires: 01/27/2024 [employer] Work Phone: Comment on above: Expected: 08/14/2023 (Approximate), Expires: 01/27/2024 Start: 08-14-2023 End: 01-27-2024 Comprehensive metabolic panel COMPREHENSIVE METABOLIC PANEL Lab Routine Transaminitis Expected: 08/14/2023 (Approximate), Expires: 01/27/2024 [facility] Phone: Comment on above: Expected: 08/14/2023 (Approximate), Expires: 01/27/2024 Start: 08-14-2023 End: 01-27-2024 Hepatic function panel HEPATIC FUNCTION PANEL Lab Routine Transaminitis Expected: 08/14/2023 (Approximate), Expires: 01/27/2024 [facility] Phone: Comment on above: Expected: 08/14/2023 (Approximate), Expires: 01/27/2024 Start: 08-14-2023 End: 01-27-2024 Hepatitis c antibody HEPATITIS C ANTIBODY WITH REFLEX TO HCV, RNA, QUANTITATIVE, REAL-TIME PCR (REFL) Lab Routine Transaminitis Expected: 08/14/2023 (Approximate), Expires: 01/27/2024 [facility] Phone: Comment on above: Expected: 08/14/2023 (Approximate), Expires: 01/27/2024 Start: 08-14-2023 Tobacco use cessatio n education Tobacco Cessation Counseling (#1) [facility] Start: 08-14-2023 End: 01-27-2024 VIRAL HEPATITIS SCREENING AND DIAGNOSIS (HAV AND HBV) VIRAL HEPATITIS SCREENING AND DIAGNOSIS (HAV AND HBV) Lab Routine Transaminitis Expected: 08/14/2023 (Approximate), Expires: 01/27/2024 [facility] Phone: Comment on above: Expected: 08/14/2023 (Approximate), Expires: 01/27/2024 Start: 07-25-2023 Relationship Safety Screening Relationship Safety Screening [facility] Start: 07-25-2023 Relationship Safety Screening/Counseling Relationship Safety Screening/Counseling [facility] Start: 07-02-2023 Screening for substa nce abuse Alcohol and Drug Screen [facility] Start: 06-02-2023 Diabetes mellitus screening Diabetes Screening [facility] Start: 06-02-2023 Hypertension screening Hyperte nsion Screening (#1) [facility] Start: 06-02-2023 Lipid panel Lipid Screening [facility] Start: 05-31-2023 End: 11-13-2023 Assay of estradiol ASSAY OF TOTAL ESTRADIOL Lab Routine Gender dysphoria Expected: 05/31/2023, Expires: 11/13/2023 [facility] Phone: Comment on above: Expected: 05/31/2023 , Expires: 11/13/2023 Start: 05-31-2023 End: 11-13-2023 Assay of testosterone total ASSAY OF TESTOSTERONE TOTAL Lab Routine Gender dysphoria Expected: 05/31/2023, Expires: 11/13/2023 [facility] Phone: Comment on above: Expected: 05/31/2023 , Expires: 11/13/2023 Start: 05-31-2023 End: 11-13-2023 CBC W Auto Differential panel - Blood BLOOD COUNT COMPLETE AUTO&AUTO DIFRNTL WBC Lab Routine Gender dysphoria Expected: 05/31/2023, Expires: 11/13/2023 [facility] Phone: Comment on above: Expected: 05/31/2023 , Expires: 11/13/2023 Start: 05-31-2023 End: 11-13-2023 Comprehensive metabolic panel COMPREHENSIVE METABOLIC PANEL Lab Routine Gender dysphoria Expected: 05/31/2023, Expires: 11/13/2023 [facility] Phone: Comment on above: Expected: 05/31/2023 , Expires: 11/13/2023 Start: 05-31-2023 End: 11-13-2023 Potassium serum plasma/whole blood POTASSIUM SERUM PLASMA/WHOLE BLOOD Lab Routine Gender dysphoria Expected: 05/31/2023, Expires: 11/13/2023 [facility] Phone: Comment on above: Expected: 05/31/2023 , Expires: 11/13/2023 Start: 03-27-2023 Depression [facility] [employer] Start: 03-02-2023 [id number] ( season) [id number] () [facility] [employer] Start: 03-02-2023 Influenza vaccination E [employer] Start: 12-29-2022 Influenza vaccination Imm-Influenza (#1) [facility] [employer] Comment on above: Postponed from 03/02 (Patient declines) Start: 10-31-2022 End: 10-31-2022 Patient encounter procedure 10/31/2022 Office Visit Obstetrics and Gynecology Andrew Jo MD [address] [place] [address] [address] [place] [address] [facility] Start: 10-23-2022 Depression Monitoring Depression Mon [facility] [employer] Start: 08-31-2022 Gonorrhea Screening Gonorrhea Screen ing [facility] [employer] Comment on above: Postponed from 04/15 (Patient declines) Start: 08-31-2022 HIV Screening HIV Screening [facility] [employer] Comment on above: Postponed from 04/15 (Patient declines) Start: 08-31-2022 Screening for Chlamy saray trachomatis Chlamydia Screening [facility] [employer] Comment on above: Postponed from 04/15 (Patient declines) Start: 07-04-2022 Tobacco use cessatio n education Tobacco Cessation Counseling (#1) [facility] Start: 01-12-2022 Introduction of urin micha catheter [facility] Work Phone: Start: 01-12-2022 Patient discharge [facility] Work Phone: Start: 01-12-2022 Ambulation therapy management [facility] Work Phone: Start: 01-12-2022 Continuous pulse oximetry [facility] Work Phone: Start: 01-12-2022 Elevation of head of bed [facility] Work Phone: Start: 01-12-2022 Incentive spirometry [facility] Work Phone: Start: 01-12-2022 Measuring intake and output [facility] Work Phone: Start: 01-12-2022 Notification of physician [facility] Work Phone: Start: 01-12-2022 End: 01-12-2022 Oxygen therapy [facility] Work Phone: Start: 01-12-2022 Patient education [facility] Work Phone: Start: 01-12-2022 Procedures relating to eating and drinking [facility] Work Phone: Start: 01-12-2022 Taking patient vital signs [facility] Work Phone: Start: 01-12-2022 Wound care [facility] Work Phone: Start: 01-12-2022 [facility] Work Phone: Start: 05-18-2021 Annual Preventive Ca re Visit Annual Preventive Care Visit [facility] Start: 05-18-2021 Annual Wellness (Gamal lt): Indicated (All Coverage) Annual Wellness (Adult): Indicated (All Coverage) [facility] Start: 05-18-2021 Annual Wellness Visit Annual Wellnes s Visit [facility] Start: 2020 Pap Testing Pap Testing [facility] Start: 2020 Screening for malign ant neoplasm of cervix [facility] Start: 2018 DTaP/Tdap/Td Vaccine s (1 - Tdap) DTaP/Tdap/Td Vaccines (1 - Tdap) [facility] Start: 2018 Imm-Pneumococcal (1 of 2 - PCV) Imm-Pneumococcal (1 of 2 - PCV) [facility] Start: 02-28-2018 Urine microalbumin profile DTaP,Tdap,Td Vaccine (5 - Tdap) [facility] Start: 02-06-2018 HPV Vaccine (2 - 3-d ose series) HPV Vaccine (2 - 3-dose series) [facility] Start: 2017 Hepatitis C screening Hepatitis C [facility] Start: 2017 Hepatitis C Screening Hepatitis C [facility] Start: 2017 HIV Screening [facility] Start: 2017 HIV screening [facility] Scre[facility] Start: 2015 Meningococcal B Vacc ine: Consider Based On Risk (1 of 2 - Patient Seeks Protection) Meningococcal B Vaccine: Consider Based On Risk (1 of 2 - Patient Seeks Protection) [facility] Start: 2014 HIV Screening HIV Screening [facility] Start: 12-11-2013 Vaccination for christian n papillomavirus Imm-HPV (3 - Risk 3-dose series) [facility] Start: 2013 Peds To Adult Transi tion Annual Assessment Peds To Adult Transition Annual Assessment [facility] Start: 2013 Serologic test for syphilis Syphilis Screening [facility] Start: 2012 Gonorrhea Screening Gonorrhea Screen ing [facility] Start: 2012 Screening for Chlamy saray trachomatis Chlamydia Screening [facility] Start: 2012 Varicella vaccination Imm-Vari omaira (1 of 2 - 13+ 2-dose series) [facility] Start: 2011 Peds To Adult Transi tion Initial Discussion Peds To Adult Transition Initial Discussion [facility] Start: 2010 HPV Vaccines (1 - 2- dose series) HPV Vaccines (1 - 2-dose series) [facility] Start: 2005 Imm-Pneumococcal (1 - PCV) Imm-Pneumococcal (1 - PCV) [facility] Start: 2005 Imm-Pneumococcal (1 of 2 - PCV) Imm-Pneumococcal (1 of 2 - PCV) [facility] Start: 2005 Pneumococcal vaccination [facility] Start: 2000 MMR Vaccines (1 of 1 - Standard series) MMR Vaccines (1 of 1 - Standard series) [facility] Start: 2000 Varicella vaccination [facility] Start: 1999 COVID-19 Vaccine (#1) COVID-19 Vacci ne (#1) [facility] Start: 1999 [id number] (#1) [id number] (#1) [facility] Start: 1999 Advanced Care Planning Advanced Care Planning [facility] Start: 1999 Anxiety Screening Anxiety Screening [facility] Start: 1999 Hepatitis B vaccination Imm-He patitis B (1 of 3 - 3-dose series) [facility] Start: 1999 Hepatitis B Vaccines (1 of 3 - 3-dose series) Hepatitis B Vaccines (1 of 3 - 3-dose series) [facility] Start: 1999 Hepatitis C screening Hepatitis C Sc gian [facility] Start: 1999 HIV screening HIV Screening [facility] Start: 1999 Screening for malign ant neoplasm of cervix [facility] Alkaloids not otherw ise specified NICOTINE AND METABOLITE, SERUM/PLASMA Lab Routine Smoking Ordered: 09/28/2022 [facility] Phone: Comment on above: Ordered: 09/28/2022 Assay of estradiol ASSAY OF TOTA L ESTRADIOL Lab Routine Gender dysphoria Ordered: 08/08/2023 [facility] Phone: Comment on above: Ordered: 08/08/2023 Assay of estradiol ASSAY OF TOTA L ESTRADIOL Lab Routine Gender dysphoria Ordered: 01/23/2024 [facility] Phone: Comment on above: Ordered: 01/23/2024 Assay of estradiol ASSAY OF TOTA L ESTRADIOL Routine Lab Routine Dizziness Ordered: 04/09/2025 [facility] Phone: Comment on above: Ordered: 04/09/2025 Assay of glutamyltra se gamma ASSAY OF GLUTAMYLTRASE GAMMA Lab Routine Diarrhea, unspecified type Elevated liver enzymes Ordered: 08/08/2023 [facility] Phone: Comment on above: Ordered: 08/08/2023 Assay of testosteron e total ASSAY OF TESTOSTERONE TOTAL Lab Routine Gender dysphoria Ordered: 08/08/2023 [facility] Phone: Comment on above: Ordered: 08/08/2023 Assay of testosteron e total ASSAY OF TESTOSTERONE TOTAL Lab Routine Gender dysphoria Ordered: 01/23/2024 [facility] Phone: Comment on above: Ordered: 01/23/2024 Assay of testosteron e total ASSAY OF TESTOSTERONE TOTAL Routine Lab Routine Dizziness Ordered: 04/09/2025 [facility] Phone: Comment on above: Ordered: 04/09/2025 CBC W Auto Different ial panel - Blood BLOOD COUNT COMPLETE AUTO&AUTO DIFRNTL WBC Lab Routine Diarrhea, unspecified type Elevated liver enzymes Ordered: 08/08/2023 [facility] Phone: Comment on above: Ordered: 08/08/2023 CBC W Auto Different ial panel - Blood BLOOD COUNT COMPLETE AUTO&AUTO DIFRNTL WBC Lab Routine Gender dysphoria Ordered: 01/23/2024 [facility] Phone: Comment on above: Ordered: 01/23/2024 CBC W Auto Different ial panel - Blood BLOOD COUNT COMPLETE AUTO&AUTO DIFRNTL WBC Lab Routine Gender dysphoria Prediabetes Ordered: 04/24/2024 [facility] Phone: Comment on above: Ordered: 04/24/2024 CBC W Auto Different ial panel - Blood BLOOD COUNT COMPLETE AUTO&AUTO DIFRNTL WBC Routine Lab Routine Dizziness Ordered: 04/09/2025 [facility] Phone: Comment on above: Ordered: 04/09/2025 Comprehensive metabo lic panel COMPREHENSIVE METABOLIC PANEL Lab Routine Diarrhea, unspecified type Elevated liver enzymes Ordered: 08/08/2023 [facility] Phone: Comment on above: Ordered: 08/08/2023 Comprehensive metabo lic panel COMPREHENSIVE METABOLIC PANEL Lab Routine Gender dysphoria Ordered: 01/23/2024 [facility] Phone: Comment on above: Ordered: 01/23/2024 Comprehensive metabo lic panel COMPREHENSIVE METABOLIC PANEL Lab Routine Gender dysphoria Prediabetes Ordered: 04/24/2024 [facility] Phone: Comment on above: Ordered: 04/24/2024 Comprehensive metabo lic panel COMPREHENSIVE METABOLIC PANEL Routine Lab Routine Dizziness Ordered: 04/09/2025 [facility] Phone: Comment on above: Ordered: 04/09/2025 Culture bacterial quanttative colony count urine CULTURE BACTERIAL QUANTITATIVE COLONY COUNT URINE Lab Routine Urinary retention Ordered: 04/24/2024 [facility] Phone: Comment on above: Ordered: 04/24/2024 End: 03-20-2023 Glucose quantitative blood xcpt reagent strip GLUCOSE, FASTING, BLOOD/PLASMA Lab Routine Medication management 1 Occurrences starting 09/21/2022 until 03/20/2023 [facility] Phone: Comment on above: 1 Occurrences starti ng 09/21/2022 until 03/20/2023 Hemoglobin glycosyla kalpesh a1c HEMOGLOBIN GLYCOSYLATED A1C Lab Routine Prediabetes Ordered: 04/24/2024 [facility] Phone: Comment on above: Ordered: 04/24/2024 Hemoglobin glycosyla kalpesh a1c HEMOGLOBIN GLYCOSYLATED A1C Routine Lab Routine Dizziness Ordered: 04/09/2025 [facility] Phone: Comment on above: Ordered: 04/09/2025 Hepatic function panel HEPATIC F UNCTION PANEL Lab Routine Diarrhea, unspecified type Elevated liver enzymes Ordered: 08/08/2023 [facility] Phone: Comment on above: Ordered: 08/08/2023 Hepatitis c antibody HEPATITIS C ANTIBODY WITH REFLEX TO HCV, RNA, QUANTITATIVE, REAL-TIME PCR (REFL) Lab Routine Diarrhea, unspecified type Elevated liver enzymes Ordered: 08/08/2023 [facility] Phone: Comment on above: Ordered: 08/08/2023 IRON PANEL W TOTAL I ELLEN BINDING CAPACITY Routine IRON PANEL W TOTAL IRON BINDING CAPACITY Routine Lab Routine Dizziness Ordered: 04/09/2025 [facility] Phone: Comment on above: Ordered: 04/09/2025 End: 03-20-2023 Lipid panel LIPID PANEL WITH LDL:HDL RATIO Lab Routine Medication management 1 Occurrences starting 09/21/2022 until 03/20/2023 [facility] Phone: Comment on above: 1 Occurrences starti ng 09/21/2022 until 03/20/2023 Lipid panel LIPID PANEL WITH LDL:HDL RATIO Lab Routine Diarrhea, unspecified type Elevated liver enzymes Screening for ischemic heart disease Ordered: 08/08/2023 [facility] Phone: Comment on above: Ordered: 08/08/2023 Lipid panel LIPID PANEL WITH LDL:HDL RATIO Lab Routine Screening for ischemic heart disease Ordered: 04/24/2024 [facility] Phone: Comment on above: Ordered: 04/24/2024 Lipid panel LIPID PANEL WITH LDL:HDL RATIO Routine Lab Routine Screening for ischemic heart disease Ordered: 04/09/2025 [facility] Phone: Comment on above: Ordered: 04/09/2025 Patient Education [facility] Work Phone: Patient referral [facility] Work Phone: TOXASSURE SELECT 12 (MEDWATCH) TOXASSURE SELECT 12 (MEDWATCH) Lab Routine Therapeutic drug monitoring Ordered: 12/31/2023 [facility] Work Phone: Comment on above: Ordered: 12/31/2023 TSH+FT4+FT3 Routine TSH+FT4+FT3 Routine Lab Routine Dizziness Ordered: 04/09/2025 [facility] Phone: Comment on above: Ordered: 04/09/2025 VIRAL HEPATITIS SCREENING AND DIAGNOSIS (HAV AND HBV) VIRAL HEPATITIS SCREENING AND DIAGNOSIS (HAV AND HBV) Lab Routine Diarrhea, unspecified type Elevated liver enzymes Ordered: 08/08/2023 [facility] Phone: Comment on above: Ordered: 08/08/2023 [facility] Immunizations Immunization Date Immunization Notes Care Provider Abdelrahman bryant 02-27-2018 tetanus and diphther ia toxoids, adsorbed, preservative free, for adult use (5 Lf of tetanus toxoid and 2 Lf of diphtheria toxoid) Silvia Teresa 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,[employer] Work Phone: [facility] Work Phone: 04-08-2015 influenza, seasonal, injectable Andrew Turpin APRN,[employer] Work Phone: [facility] Work Phone: 08-13-2013 human papilloma viru s vaccine, quadrivalent Andrew Turpin 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,[employer] Work Phone: [facility] Work Phone: 02-24-2013 human papilloma viru s vaccine, quadrivalent Andrew Turpin 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,[employer] Work Phone: [facility] Work Phone: 02-24-2013 influenza, seasonal, injectable Andrew Turpin 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,[employer] Work Phone: [facility] Work Phone: 02-24-2013 tetanus toxoid, redu domenica diphtheria toxoid, and acellular pertussis vaccine, adsorbed Andrew Turpin 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 2021 Unknown UMR UMR [id number] 2021-Present [phone] [address] [address] [place] [address] Indemnity [id number] 2021 Private Health Insurance [id number] 2021 Private Health Insurance [id number] 1999 Unknown [id number] 1999 Unknown [id number] 1999 Unknown [id number] 1999 Unknown [id number] 1999 Unknown [id number] 1999 Unknown [id number] 1999 Unknown [id number] 1999 Unknown [id number] 1999 Unknown [id number] Unknown [id number] Unknown [id number] Social History Date Type Detail Facility [facility] Work Phone: Start: 12-29-2021 End: 10-07-2022 Tobacco smoking status AKIS Unknown [facility] [employer] Start: 2000 Sex Assigned At Female [facility] [employer] Start: 08-14-2022 End: 09-24-2023 Tobacco smoking status AKIS Smokes tobacco daily [facility] [employer] Work Phone: History of tobacco use Cigarette Smoker [facility] [employer] Work Phone: Start: 07-14-2021 End: 08-14-2022 Cigarettes smoked current (pack per day) - Reported 1 [facility] Start: 08-14-2022 End: 09-24-2023 Tobacco use and exposure Smokeless tobacco non-user [facility] Work Phone: Start: 08-14-2022 End: 04-09-2025 Alcohol intake Current drinker of alcohol (finding) [facility] Work Phone: Start: 05-18-2020 History SDOH Alcohol Frequency 2 [facility] Work Phone: Start: 05-18-2020 History SDOH Alcohol Std Drinks 1 [facility] Work Phone: Start: 08-14-2022 Tobacco Comment 08/14: none in 13d Eq [facility] Work Phone: Start: 08-14-2022 Alcohol Comment 08/14: 1x/w, 1 giovanni g [facility] Work Phone: Start: 07-14-2021 End: 04-09-2025 Social Connections [facility] Start: 05-18-2020 Social Connections a nd Isolation 1 [facility] Start: 04-08-2020 Gender identity [id number] transsexual (finding) [facility] Start: 09-21-2022 End: 10-24-2022 Alcohol intake Ex-drinker (finding) [facility] Work Phone: Start: 09-21-2022 Tobacco Comment 09/21: none in 1 gela h [facility] Work Phone: Start: 09-21-2022 Alcohol Comment 09/21: denies recent [facility] Work Phone: Start: 09-18-2022 End: 09-28-2022 Exposure to SARS-CoV-2 (event) Not sure [facility] Start: 1999 Sex Assigned At Not on file [facility] [employer] Start: 10-24-2022 Tobacco Comment 10/24: none in 2mos [facility] Work Phone: Start: 10-24-2022 Alcohol Comment 10/24: denies recent [facility] Work Phone: Start: 01-11-2023 Tobacco smoking stat us AKIS Ex-smoker [facility] Work Phone: History of tobacco use Current smoker [employer] Work Phone: Start: 02-14-2023 Tobacco smoking status Heavy t obacco smoker (finding) [facility] Sex Assigned At Male [facility] Start: 06-11-2023 Tobacco use and exposure Former smokeless tobacco user [facility] History of tobacco use Chews Tobacco [facility] Do you belong to any clubs or organizations such as adventism groups, unions, [employer] or athletic groups, or school groups? No [facility] Are you now , , , , never or living with a partner? Living with partner [facility] How often to you hav e a drink containing alcohol? Monthly or less [facility] How many standard drinks containing alcohol do you have on a typical day? 1 or 2 [facility] How often do you hav e 6 or more drinks on 1 occasion? Never [facility] How hard is it for y ou to pay for the very basics like food, housing, medical care, and heating Hard [facility] Do you feel stress - tense, restless, nervous, or anxious, or unable to sleep at night because your mind is troubled all the time - these days [OSQ] Very much [facility] (I/We) worried carlos er (my/our) food would run out before (I/we) got money to buy more. Never true [facility] In the past 12 month s, was there a time when you were not able to pay the mortgage or rent on time? Yes [facility] Start: 10-28-2020 Education 11 [facility] Start: 09-27-2020 Alcohol Comment sometimes [facility] Start: 10-28-2020 Gender identity [id number] transsexual (finding) [facility] Start: 10-28-2020 Sexual orientation Heterosexual (fin ding) [facility] Start: 04-08-2020 Sex Female (finding) [facility] [employer] NEGATED: Highlighted row [facility] Medical Equipment Procedure Code Equipment Code Equipment Original Text Equipment Identifier Dates Start: 06-02-2022 End: 09-16-2024 Comment on above: Use for weekly subcu taneous injections Use to draw medicati on for injection weekly USE FOR WEEKLY SUBCU TANEOUSLY INJECTIONS USE TO DRAW UP MEDIC ATION WEEKLY Use for weekly subcu taneous injections, no waste syringes if able Inject 1 Each into t he muscle once a week once a week Goals Date Patient Goal Desired Activity /State Personal health goal Comment on above: Formatting of this n ote might be different from the original. Patient will lower his PHQ-9 score to 15 or lower within in the next 6 months. Formatting of this n ote might be different from the original. Patient will play his guitar at least 1 hour a week for the next 3 months. Formatting of this n ote might be different from the original. Patient will play his guitar at least 1 hour a week for the next 3 months. 10/20- Pt goal is on hold as the pt's guitar is broken. BB. Personal health goal Comment on above: Formatting of this n ote might be different from the original. Patient will clean the house on his day off once every 2 weeks for the next 6 months. Formatting of this n ote might be different from the original. Patient will clean the house on his day off once every 2 weeks for the next 6 months. 10/20- Pt states having good progress on the goal and keeping things clean leading up to his top surgery on this past Sunday after which pt is focusing on recovery for time being. BB. Personal health goal Comment on above: Formatting of this n ote might be different from the original. Mil will work towards his diploma over the next 12 months. Comment on above: Formatting of this n ote might be different from the original. Patient will lower his PHQ-9 score to 15 or lower within in the next 6 months. Comment on above: Formatting of this n ote might be different from the original. Patient will play his guitar at least 1 hour a week for the next 3 months. Comment on above: Formatting of this n ote might be different from the original. Patient will clean the house on his day off once every 2 weeks for the next 6 months. Comment on above: Formatting of this n ote might be different from the original. Mil will work towards his diploma over the next 12 months. Functional Status Date Assessment Result Facility 09-04-2023 Functional Status Independent [facility] 09-04-2023 Functional Status Standard Safet y ID band on, Allergy Band on, Call device within reach, Bed in low position, Wheels locked, Upper/Half-Length side-rails up, Bedside Cart Locked, Safety level maintained [facility] 02-14-2023 Functional Status ID band on, Allergy Band on, Call device within reach, Bed in low position, Wheels locked, Upper/Half-Length side-rails up, Safety level maintained [facility] 02-14-2023 Functional Status [facility] Mental Status Date Assessment Result Facility 09-04-2023 Mental Status Orientation Oriented x 4 [facility] 09-04-2023 Mental Status [facility] 02-14-2023 Mental Status Orientation Oriented x 4 [facility] 01-12-2022 Cognitive function Voice/Name [facility] Work Phone: Clinical Notes 10-26-2021 to 04-27-2025 Ajit Paulino APRN - 04/27/2025 11:30 AM Cash Paulino APRN - 04/24/2025 12:28 PM Cash Paulino APRN - 04/24/2025 8:53 AM Seferino Turpin APRN, CNP - 04/09/2025 10:03 AM EDTPatient Instructions Note Date & Type Note Facility 04-27-2025 History of Present illness Narrative Tele-Health Visit Statement [facility] The patient's identity was verified and they have verbally stated that they are currently in the [facility]. The risks, benefits, and alternatives of a real time synchronous audiovisual consultation were discussed with the patient and/or their guardian and they have given their verbal consent to this tele-health visit. This visit took place via tele-health video visit Additional persons on the call: no one Electromechanic used/present: Not Applicable Patient location : home Provider location : Visit occurred in clinic Chief Complaint Patient presents with Follow Up Medication Management Anxiety Depression Attention Deficit Sleep Problem Objective There is a refill for lorazepam dated 03/30 that has not been filled as of today, so not sending one now. Would like to continue to lower the quantity of these dispensed per month, as these will interfere with the wakefulness-promoting agent his sleep medicine clinic started him on 04/24 ([place]). He reports that he hardly takes the lorazepam anymore, as it's not usually very effective, although if he is going out to do something that he knows will cause him anxiety, or if he wakes up in the middle of the night from a nightmare, he will take one to go back to sleep. He rarely takes it during the day. He no longer reports efficacy from the prazosin, stating that he wakes up from nightmares every night now. When we went up to 2 mg, he had hypotension to the point that he passed out with documented low blood pressure the next morning while at work He mentions that he used to take klonopin for nightmares and thinks that it worked well, and is wondering if we could try that. Wanda had mentioned to me that he felt that the klonopin did not help Discussed that I have removed the Schizoaffective Disorder diagnosis from his profile, as he clearly does not meet criteria (the figures he sometimes sees are either hypnopompic or hypnagogic hallucinations, so not psychotic in nature, and being on an unopposed SNRI and stimulant did not cause psychosis or nenita). Removed Schizoaffective as well as BPAD from his profile. Discussed the plan to start tapering down to lower doses of Adderall slowly to avoid rebound tiredness, as it may not be needed or may only be needed at a much lower dose. He did have noticeable exhaustion when he stopped it the week prior to the MSLT, although he agrees that it does not seem to be really helping much. He always takes 2 doses per day, and sometimes takes a 3rd, depending upon how active he has to be. Also discussed that all sedating/sleep medications will now be managed by Dr. Mosquera's office per Wanda, as will the Sunosi, which is why I would like him to discuss the possibility of using clonazepam for nightmares with the nurse practitioner at the sleep clinic. He has done the crisis hotline a couple times and feels more comfortable, and he plans to do it again later today. No SI, nenita or psychosis. 03/30/25 f/u: Mil forgot to ask the sleep clinic to send me the results. His f/u appt is 04/16. He says that he was told that if it was sleep apnea, they would not have had to do the daytime test, but they did in fact have to do it. He has been trying to reach t hem to see if they can give the results over the phone, but he has been unable to reach them; advised that I also was unable to reach them despite them calling me first to discuss stopping some of his psych meds prior to the MSLT. Mil reports that in the last few days his mood has been better; he says that being off the Wellbutrin, modafinil, and Adderall caused him to feel not with it. He reports that he continues to be short tempered, but he does not wake up angry anymore and he does not feel angry all the time like he used to. He recognizes that poor sleep is exacerbating if not creating this, and we need to see what the sleep study revealed and what the recommendations are from the sleep study. He is not taking the Wellbutrin, but did restart the Adderall and modafinil the day after the sleep study, so he has been back on them for a few days now, and he notes that they definitely help him function. His nightmares are worse lately. However, he was on 2 mg of prazosin back in 2021 with previous [employer] and states he was passing out at work the next day, with low blood pressure. Discussed that I would like to leave his meds where they are at for the time being - we may change or d/c the Adderall and/or modafinil depending upon the recommendations from the sleep clinic when he goes back for a f/u appt 04/16 - gave him my direct fax # and email address at the clinic and asked that he have them fax the results to me, along with their recommendations. He has therapy appt at 2 and he plans to do a shift at the crisis hotline before the appt in case he wants to talk about it during therapy. He had his first shift a few days ago and he liked it; he got good feedback from his wellness coach, and he feels good about that. Mil has been looking at different courses to explore becoming a [employer] Work[employer]. No SI, nenita or psychosis. 03/30/25 Plan: Pt returns to Dr. Mosquera's office 04/16 to discuss results of Multiple Sleep Latency Test performed last week; gave him the most direct fax # to send those to me and asked him to give this to the sleep medicine clinic when he goes in, as I have had no luck with reaching them despite multiple attempts (this was a referral I made in May, so they should send me records automatically but thus far they have sent nothing) Continue Adderall IR 15 mg PO tid for ADHD (may try different med or adjust dose depending upon results of MSLT and recommendation from sleep doctor) Continue modafinil 100 mg PO qam for daytime hypersomnolence (may try different med or adjust dose depending upon results of MSLT and recommendation from sleep doctor) Continue prazosin 1 mg PO qhs for PTSD-related nightmares Continue Effexor 225 mg PO qam for depression/anxiety Continue lorazepam 1 mg PO bid PRN for acute anxiety; dispensing #15 for 30-d/s Further medication changes will depend on client report of symptoms and tolerability RTC in 4 weeks HPI Mil Toro is a 25 year old Adult here today for follow-up med management visit. Symptoms include sadness (worse since I've been stuck at home; go back next Sunday; before that was there, normal for me), decreased interest (not it; kind of been the same throughout), hopelessness, panic (handful, 4-5; 10m; out of nowhere talk to random somebody that I know), difficulty concentrating (yeah), increased fatigue (worse last couple weeks) and sleep disturbance (since surgery maybe an hour or two a night sleeping on my couch very uncomfortable, have to sleep in recliner; 1-2h; napping trying to avoid it; not restorative). Patient denies or there is no evidence of low self-esteem, guilt, nervousness/anxiousness (not too bad), inflated self-esteem, decreased need for sleep, euphoric mood, hallucinations, irritability, appetite change, suicidal ideas or homicidal ideas. Thoughts that would be easier: Plan:. Weight change: h/o disordered eating does weigh self. Onset of these symptoms was more than 1 year ago. Patient's report of symptoms since onset: unchanged. Symptoms occur constantly. The severity of symptoms is moderate. : 50h/w. Past treatments tried include: Medication therapy, which was effective. Psychotherapy treatment, which was effective ([facility] see her next week). . Compliance with prior treatments has been good. Last KULDEEP-7 KULDEEP-7 Total (!) 21 at 04/24/2024 10:14 AM Last PHQ-9 PHQ-9 Total Score (Auto Calculated) (!) 20 at 06/06/2024 10:14 AM HIV Care No results found for: CD4, COPIESML, HELPSUPP If client is HIV+, provider reviewed HIV care, Viral Load, and CD4: Not applicable AIMS 01/20/2025 2:00 PM 1. Muscles of facial expression none 2. [...] 05/31/2020 4.3 uU/mL WBC (x10E3/uL) Date Value 04/24/2024 7.0 01/23/2024 6.4 RBC (x10E6/uL) Date Value 04/24/2024 5.32 (H) 01/23/2024 5.65 (H) HGBA1C (%) Date Value 04/24/2024 5.3 07/27/2023 5.9 (H) HGB (g/dL) Date Value 04/24/2024 14.9 01/23/2024 15.9 HCT (%) Date Value 04/24/2024 47.5 (H) 01/23/2024 48.4 (H) CHOL (mg/dL) Date Value 04/24/2024 138 08/08/2023 168 TRIGLYC (mg/dL) Date Value 04/24/2024 96 08/08/2023 146 HDL (mg/dL) Date Value 04/24/2024 37 (L) 08/08/2023 44 LDL (mg/dL) Date Value 04/24/2024 83 08/08/2023 98 VLDL (mg/dL) Date Value 04/24/2024 18 08/08/2023 26 GLUCOSE (mg/dL) Date Value 04/24/2024 79 01/23/2024 90 BUN (mg/dL) Date Value 04/24/2024 11 01/23/2024 7 CREATININE (mg/dL) Date Value 04/24/2024 1.00 01/23/2024 1.07 (H) EGFR (mL/min/1.73) Date Value 04/24/2024 80 01/23/2024 74 05/31/2020 111 05/31/2020 128 AST (IU/L) Date Value 04/24/2024 16 01/23/2024 20 ALT (IU/L) Date Value 04/24/2024 16 01/23/2024 19 BILIRUBIN (mg/dL) Date Value 04/24/2024 0.3 01/23/2024 0.3 No results found for: URAMPHETQL, URCOCAINEQL, URTHCQL, UROPIATEQL, URETOHQL, URBUPRENQL, URBENZOQL, URMETHDQL Review of Systems Constitutional: Negative for appetite change. Psychiatric/Behavioral: Positive for sleep disturbance (since surgery maybe an hour or two a night sleeping on my couch very uncomfortable, have to sleep in recliner; 1-2h; napping trying to avoid it; not restorative). Negative for hallucinations, homicidal ideas and suicidal ideas. The patient is not nervous/anxious (not too bad). Mental Status Exam Appearance is appropriate for circumstance. General Health is generally good. Eye Contact is good. Motor Activity is unremarkable. Speech is unremarkable. Affect is constricted (more reactive than previously)Blunted: baseline.. slight Reported Mood is neutral/euthymic. pretty good Thought Content is unremarkable. Thought Process is goal-directed and is linear. Perception is unremarkable. Attention is alert. Demeanor is appropriate for situation. Insight is appropriate. Judgement is appropriate. Orientation is fully oriented. Memory is grossly intact and not formally tested. Narrative: Reviewed [facility] report 04/24/2025 which reveals modafinil 100 mg #30 last filled 03/25/25, Adderall IR 15 mg #90 for 30-d/s last filled 03/19/25 and lorazepam 1 mg #15 for 30-d/s last filled 02/24/25 Total visit time today, including time spent reviewing chart and/or consulting prior to or after appointment was 24 minutes. Greater than 50% of this time was spent providing counseling and care coordination around chief complaint, including any additional diagnoses listed above. Shared-decision making was made with consideration for patient specific factors. All patient's questions were answered and patient verbally confirms and understands plan of care. Diagnosis: 1. Attention deficit hyperactivity disorder (ADHD), predominantly inattentive type - dextroamphetamine-amphetamine (ADDERALL) 15 mg tablet; Take 1 Tablet by mouth 3 (three) times daily for 30 days. Dispense: 90 Tablet; Refill: 0 2. Daytime hypersomnolence 3. Generalized anxiety disorder - venlafaxine XR (EFFEXOR XR) 150 mg 24 hr capsule; Take 1 Capsule by mouth once daily with breakfast along with 75 mg, for a total daily dose of 225 mg. Dispense: 30 Capsule; Refill: 0 - venlafaxine XR (EFFEXOR XR) 75 mg 24 hr capsule; Take 1 Capsule by mouth once daily with breakfast along with 150 mg, for a total daily dose of 225 mg. Dispense: 30 Capsule; Refill: 0 4. PTSD (post-traumatic stress disorder) - venlafaxine XR (EFFEXOR XR) 150 mg 24 hr capsule; Take 1 Capsule by mouth once daily with breakfast along with 75 mg, for a total daily dose of 225 mg. Dispense: 30 Capsule; Refill: 0 - venlafaxine XR (EFFEXOR XR) 75 mg 24 hr capsule; Take 1 Capsule by mouth once daily with breakfast along with 150 mg, for a total daily dose of 225 mg. Dispense: 30 Capsule; Refill: 0 5. Moderate episode of recurrent major depressive disorder - venlafaxine XR (EFFEXOR XR) 150 mg 24 hr capsule; Take 1 Capsule by mouth once daily with breakfast along with 75 mg, for a total daily dose of 225 mg. Dispense: 30 Capsule; Refill: 0 Plan: D/c prazosin d/t lack of efficacy Not sending any lorazepam, as pt has plenty on hand - he takes sparingly during the day PRN for acutely anxiety-inducing situations, and sparingly at night after waking up from a particularly bad nightmare Continue Effexor 225 mg PO qam for depression/anxiety - once his narcolepsy is better controlled, if he remains irritable, will consider lowering dose of Effexor to see if it's contributing Continue Adderall IR 15 mg PO tid for ADHD - once he is stable on Sunosi from sleep clinic, will start slowly tapering down and either stay on lower dose or d/c altogether as indicated D/c modafinil, as sleep clinic is starting on Sunosi for narcolepsy D/c prazosin; pt reports no benefit Continue lorazepam 1 mg PO bid PRN for acute anxiety - not sending any at this time as he has plenty on hand; discussed that if the sleep clinic starts clonazepam for nightmares or if they say it's okay and they would like me to prescribe the clonazepam, the lorazepam will be d/c'd He will speak with Wanda at Dr. Mosquera's office next week about the possibility of trying clonazepam for nightmares since the 1 mg of prazosin stopped working (and higher doses cause hypotension and caused him to pass out at work in the morning) Sent him message after the appt advising that we could restart clonidine 0.1 mg PO qhs for nightmares rather than having him discuss clonazepam with sleep clinic, as I started this last year and titrated up to 0.2 mg with partial efficacy before it was stopped during IOP Further medication changes will depend on client report of symptoms and tolerability RTC in 4 weeks Explained rationale for medication choices and discussed possible risks, benefits and alternative treatment with client (parent/guardian)? [x] Yes [] No Client/Guardian Response: [x] Understands Information [] Does Not Understand [x] Agrees with Medication [] Refuses Medication documented in this encounter [facility] Phone: 04-24-2025 History of Present illness Narrative Spoke with [employer] Wanda at Dr. Mosquera's office, who reviewed the MSLT (Multiple Sleep Latency Test) from 03/24/25 and confirmed that the findings are consistent with narcolepsy, and their clinical findings support that diagnosis. She sees him again in a week or two and will start him on Sunosi 150 mg PO qd today; she stated that her office will continue prescribing that medication on an ongoing basis, assuming he does well on it. She stated that it reportedly is generally more effective than modafinil and patients do not develop resistance to it. She asked if we could stop the modafinil and I confirmed that we can stop that today, and I will discuss with Mil when I see him in a few days (04/27). She is okay with him remaining on the prazosin for nightmares. Once his response to the Sunosi is determined, she may start him on a sleep promoting medication such as Xywav or Xyrem; these medications can worsen depressive symptoms though, so she would want to be cautious when starting either of these medications. Advised that I would not prescribe any more sedative medications (she is okay with the PRN alprazolam, although she warned that it can interfere with the efficacy of the Sunosi, and it looks as if pt has not filled in 2 months, so we will attempt to continue to lower the qty of prescribed lorazepam with the intention of discontinuing). Also discussed the Adderall, which she stated is not contraindicated, but may not be needed once his narcolepsy is appropriately treated. The plan is for me to taper down to lowest effective dose, or discontinue altogether if appropriate. She mentioned that Mil does not agree with the Schizoaffective Disorder diagnosis, in that the figures he sometimes sees are hypnopompic or hypnagogic and likely to be related to extreme fatigue due to narcolepsy. I confirmed that I agree that he does not meet criteria for schizoaffective, and not being on either a mood stabilizer or antipsychotic while being on an SNRI and a stimulant without any nenita or psychosis supports the absence of this diagnosis, so I am removing it. documented in this encounter [facility] Phone: 04-24-2025 History of Present illness Narrative Returned call from Wanda Cardenas NP at Dr. Mosquera's sleep clinic - she stated in her VM that she wanted to discuss test results and medication options. Left VM for her, indicating that I can speak today between noon and 1 or Sunday morning between 9:30 and 10 am, and advising her that I see Mil Sunday at 11:30 and would love to connect before then. documented in this encounter [facility] Phone: 04-09-2025 History of Present illness Narrative Chief Complaint / HPI: Chief Complaint Patient presents with Rash Appeared 2 weeks ago, above knee on thigh and then spread to inner thigh, has tried OTC and they have not worked Dizziness Worsened in the lat 2 months, happens daily. Happens randomly. Vision goes dark and blurry. Body feels hot and prickly all over. Loses balance during these episodes. Loses endband cutter hand strength HPI Problems Assessed, Plan, Orders & Medical Decision Making 1. Rash (Primary) Overview: Pt states that he has had this rash to his inner thighs that has been really itchy. He states that he has been using various itch creams with little relief. He denies any new soaps or detergents. I would like for him to start a combo cream and oral steroid Orders: - clotrimazole-betamethasone (LOTRISONE) 1-0.05 % lotion; Apply topically 2 (two) times daily.e-Prescribing, topical, Disp-30 mL, R-1 Dispense: 30 mL; Refill: 1 - methylPREDNISolone (MEDROL DOSPAK) 4 mg tablet pack; Take per package insert.e-Prescribing, Disp-1 Packet, R-0 Dispense: 1 Packet; Refill: 0 2. Dizziness Overview: Pt states that he has always had variable dizziness. He states that it has got worse lately. He states that he will be walking down the [place] and get dizzy. He states that he has been drinking a lot of water and that when this occurs his BS is around 80-90. 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 The levels were normal values. He does get a buzzing in his ears. I would like to get labs and then see what kind of follow is warranted Possible ENT referral Orders: - COMPREHENSIVE METABOLIC PANEL Routine - BLOOD COUNT COMPLETE AUTO&AUTO DIFRNTL WBC Routine - HEMOGLOBIN GLYCOSYLATED A1C Routine - TSH+FT4+FT3 Routine - IRON PANEL W TOTAL IRON BINDING CAPACITY Routine - ASSAY OF TOTAL ESTRADIOL Routine - ASSAY OF TESTOSTERONE TOTAL Routine 3. Screening for ischemic heart disease - LIPID PANEL WITH LDL:HDL RATIO Routine 4. Pain - pregabalin (LYRICA) 150 mg capsule; Take 1 Capsule by mouth 2 (two) times daily., Disp-60 Capsule, R-3 e-Prescribing, Long-term Dispense: 60 Capsule; Refill: 3 Depression Screening: PHQ2 Score (!) 6 at 06/06/2024 10:14 AM PHQ-9 Total Score (Auto Calculated) (!) 20 at 06/06/2024 10:14 AM Depression Severity: Severe at 06/06/2024 10:14 AM Major depression criteria of 5+ symptom and disability met? Yes at 06/06/2024 10:14 AM Plan: Depression follow up provided: Counseling / education in visit BMI Readings from Last 3 Encounters: 04/09/25 27.22 kg/m 05/12/24 31.93 kg/m 04/24/24 33.72 kg/m BMI follow up plan for 18+: The patient was counseled regarding nutrition and physical activity BMI is not an accurate reflection of [...] well-being and mood. Tobacco Use and Intervention: Tobacco History Tobacco Use Smoking Status Every Day Current packs/day: 1.00 Types: Cigarettes Smokeless Tobacco Never Tobacco Comments 10/24: none in 2mos Ready to quit: Not Answered Counseling given: Not Answered Tobacco comments: 10/24: none in 2mos Plan: Tobacco Intervention: provided smoking cessation counseling Future Appointments Date Time Provider Department Center 04/27/2025 11:30 AM Ajit Paulino APRN [facility] ROS & Physical Exam Review of Systems Constitutional: Negative. HENT: Negative. Eyes: Negative. Respiratory: Negative. Cardiovascular: Negative. Breasts: Negative. Endocrine: Negative. Genitourinary: Negative. Musculoskeletal: Negative. Allergic/Immunologic: Negative. Neurological: Negative. Hematological: Negative. Psychiatric/Behavioral: Negative. Physical Exam Vitals reviewed: limited d/t virtual. Constitutional: Appearance: Normal appearance. HENT: Head: Normocephalic and atraumatic. Pulmonary: Effort: Pulmonary effort is normal. No respiratory distress. Musculoskeletal: General: Normal range of motion. Neurological: General: No focal deficit present. Mental Status: He is alert and oriented to person, place, and time. Psychiatric: Mood and Affect: Mood normal. Behavior: Behavior normal. documented in this encounter [facility] Phone: 04-08-2025 History of Present illness Narrative Rec'd and reviewed faxed results from [facility] from initial sleep study 03/23/25 resulting in a diagnosis of hypersomnia, and then the Multiple Sleep Latency Test (MSLT) performed 03/24/25, resulting in a diagnosis of hypersomnia with the recommendations being: In the proper context the findings are consistent with narcolepsy; interview the patient for symptoms of cataplexy; avoid driving drowsy; and follow-up in 2 weeks Submitted for scanning into chart. documented in this encounter [facility] Phone: 03-30-2025 History of Present illness Narrative Tele-Health Visit Statement [facility] The patient's identity was verified and they have verbally stated that they are currently in the [facility]. The risks, benefits, and alternatives of a real time synchronous audiovisual consultation were discussed with the patient and/or their guardian and they have given their verbal consent to this tele-health visit. This visit took place via tele-health video visit Additional persons on the call: no one Electromechanic used/present: Not Applicable Patient location : home Provider location : Visit occurred in clinic Chief Complaint Patient presents with Medication Management Follow Up Mood Disorder Anxiety Objective Mil forgot to ask the sleep clinic to send me the results. His f/u appt is 04/16. He says that he was told that if it was sleep apnea, they would not have had to do the daytime test, but they did in fact have to do it. He has been trying to reach t hem to see if they can give the results over the phone, but he has been unable to reach them; advised that I also was unable to reach them despite them calling me first to discuss stopping some of his psych meds prior to the MSLT. Mil reports that in the last few days his mood has been better; he says that being off the Wellbutrin, modafinil, and Adderall caused him to feel not with it. He reports that he continues to be short tempered, but he does not wake up angry anymore and he does not feel angry all the time like he used to. He recognizes that poor sleep is exacerbating if not creating this, and we need to see what the sleep study revealed and what the recommendations are from the sleep study. He is not taking the Wellbutrin, but did restart the Adderall and modafinil the day after the sleep study, so he has been back on them for a few days now, and he notes that they definitely help him function. His nightmares are worse lately. However, he was on 2 mg of prazosin back in 2021 with previous [employer] and states he was passing out at work the next day, with low blood pressure. Discussed that I would like to leave his meds where they are at for the time being - we may change or d/c the Adderall and/or modafinil depending upon the recommendations from the sleep clinic when he goes back for a f/u appt 04/16 - gave him my direct fax # and email address at the clinic and asked that he have them fax the results to me, along with their recommendations. He has therapy appt at 2 and he plans to do a shift at the crisis hotline before the appt in case he wants to talk about it during therapy. He had his first shift a few days ago and he liked it; he got good feedback from his wellness coach, and he feels good about that. Mil has been looking at different courses to explore becoming a [employer] Work[employer]. No SI, nenita or psychosis. 03/16/25 f/u: Have left 2 messages [address]. Mosquera's office, - no call back. She is at the sleep clinic and reportedly wanted to talk about his psych meds (I assume stopping the appropriate ones before the scheduled MSLT 03/23 and 03/24, likely the Wellbutrin/modafinil/Adderall). Plan was to d/c Wellbutrin today, and pt can d/c the Adderall and/or the modafinil at any time. The mirtazapine was already d/c'd, and the Effexor cannot be d/c'd in a few weeks time, and I do not want patient to be on no antidepressant, especially suddenly. Mil said that Wanda wanted him off all stimulant type medications - discussed stopping the Wellbutrin now, stopping the modafinil in a few days, and then I advised that he should start tapering himself off the Adderall now (currently taking it three times per day). Advised that I suggest being off the Adderall completely at least one full day before the test (so that would be Sun 03/22, not taking the Adderall). If he follows this, he will be off the Wellbutrin, modafinil, and Adderall for at least a couple days before the Multiple Sleep Latency Test at the sleep clinic. Confirmed that I do not want to make any changes to Effexor, and that the prazosin is fine to keep taking, although do not take the night of the sleep test. Also advised that PRN lorazepam is okay as he takes that sparingly for anxiety so that is not a contributor to his daytime hypersomnolence and also is not counteracting it in any way. Mil does work every day between now and the sleep study, so I advised that he can taper the Adderall at his discretion, as long as he does not take it for a day before the sleep study. He notes he has started keeping more to himself and has been more irritable at work and with his since our last appt. His mood tends to dip this time of year, and we just tapered him off the mirtazapine, which was not noticeable going from 45 to 30, but it seems may have been providing benefit after all. May choose to restart this med with target dose of 30 mg after sleep study. No SI, nenita or psychosis. 03/16/25 Plan: D/C Wellbutrin D/c modafinil in a few days Start tapering off Adderall, with plan to be off entirely at least 24 hours before sleep study Advised pt from my perspective, okay to restart modafinil and Adderall after sleep study, although I will defer to their expertise Continue prazosin 1 mg PO qhs for PTSD-related nightmares Continue Effexor 225 mg PO qam for depression/anxiety After sleep study, may reintroduce 30 mg mirtazapine as he noticed more irritability/depression when he stopped it (could be related to season or other reasons though) Continue lorazepam 1 mg PO bid PRN for acute anxiety; dispensing #15 for 30-d/s Further medication changes will depend on client report of symptoms and tolerability RTC in 2 weeks HPI Mil Toro is a 24 year old Adult here today for follow-up med management visit. Symptoms include sadness (worse since I've been stuck at home; go back next Sunday; before that was there, normal for me), decreased interest (not it; kind of been the same throughout), hopelessness, panic (handful, 4-5; 10m; out of nowhere talk to random somebody that I know), difficulty concentrating (yeah), increased fatigue (worse last couple weeks) and sleep disturbance (since surgery maybe an hour or two a night sleeping on my couch very uncomfortable, have to sleep in recliner; 1-2h; napping trying to avoid it; not restorative). Patient denies or there is no evidence of low self-esteem, guilt, nervousness/anxiousness (not too bad), inflated self-esteem, decreased need for sleep, euphoric mood, hallucinations, irritability, appetite change, suicidal ideas or homicidal ideas. Thoughts that would be easier: Plan:. Weight change: h/o disordered eating does weigh self. Onset of these symptoms was more than 1 year ago. Patient's report of symptoms since onset: unchanged. Symptoms occur constantly. The severity of symptoms is moderate. : 50h/w. Past treatments tried include: Medication therapy, which was effective. Psychotherapy treatment, which was effective ([facility] see her next week). . Compliance with prior treatments has been good. Last KULDEEP-7 KULDEEP-7 Total (!) 21 at 04/24/2024 10:14 AM Last PHQ-9 PHQ-9 Total Score (Auto Calculated) (!) 20 at 06/06/2024 10:14 AM HIV Care No results found for: CD4, COPIESML, HELPSUPP If client is HIV+, provider reviewed HIV care, Viral Load, and CD4: Not applicable AIMS 01/20/2025 2:00 PM 1. Muscles of facial expression none 2. [...] 05/31/2020 4.3 uU/mL WBC (x10E3/uL) Date Value 04/24/2024 7.0 01/23/2024 6.4 RBC (x10E6/uL) Date Value 04/24/2024 5.32 (H) 01/23/2024 5.65 (H) HGBA1C (%) Date Value 04/24/2024 5.3 07/27/2023 5.9 (H) HGB (g/dL) Date Value 04/24/2024 14.9 01/23/2024 15.9 HCT (%) Date Value 04/24/2024 47.5 (H) 01/23/2024 48.4 (H) CHOL (mg/dL) Date Value 04/24/2024 138 08/08/2023 168 TRIGLYC (mg/dL) Date Value 04/24/2024 96 08/08/2023 146 HDL (mg/dL) Date Value 04/24/2024 37 (L) 08/08/2023 44 LDL (mg/dL) Date Value 04/24/2024 83 08/08/2023 98 VLDL (mg/dL) Date Value 04/24/2024 18 08/08/2023 26 GLUCOSE (mg/dL) Date Value 04/24/2024 79 01/23/2024 90 BUN (mg/dL) Date Value 04/24/2024 11 01/23/2024 7 CREATININE (mg/dL) Date Value 04/24/2024 1.00 01/23/2024 1.07 (H) EGFR (mL/min/1.73) Date Value 04/24/2024 80 01/23/2024 74 05/31/2020 111 05/31/2020 128 AST (IU/L) Date Value 04/24/2024 16 01/23/2024 20 ALT (IU/L) Date Value 04/24/2024 16 01/23/2024 19 BILIRUBIN (mg/dL) Date Value 04/24/2024 0.3 01/23/2024 0.3 No results found for: URAMPHETQL, URCOCAINEQL, URTHCQL, UROPIATEQL, URETOHQL, URBUPRENQL, URBENZOQL, URMETHDQL Review of Systems Constitutional: Negative for appetite change. Psychiatric/Behavioral: Positive for sleep disturbance (since surgery maybe an hour or two a night sleeping on my couch very uncomfortable, have to sleep in recliner; 1-2h; napping trying to avoid it; not restorative). Negative for hallucinations, homicidal ideas and suicidal ideas. The patient is not nervous/anxious (not too bad). Mental Status Exam Appearance is appropriate for circumstance. General Health is generally good. Eye Contact is good. Motor Activity is unremarkable. Speech is unremarkable. Affect is constricted (more reactive than previously)Blunted: baseline.. slight Reported Mood is neutral/euthymic. pretty good Thought Content is unremarkable. Thought Process is goal-directed and is linear. Perception is unremarkable. Attention is alert. Demeanor is appropriate for situation. Insight is appropriate. Judgement is appropriate. Orientation is fully oriented. Memory is grossly intact and not formally tested. Narrative: Reviewed OARRS report 03/27/2025 which reveals modafinil 100 mg #30 last filled 03/25/25 and Adderall IR 15 mg #90 for 30-d/s last filled 03/19/25 and lorazepam 1 mg #15 for 30-d/s last filled 02/24/25 Total visit time today, including time spent reviewing chart and/or consulting prior to or after appointment was 27 minutes. Greater than 50% of this time was spent providing counseling and care coordination around chief complaint, including any additional diagnoses listed above. Shared-decision making was made with consideration for patient specific factors. All patient's questions were answered and patient verbally confirms and understands plan of care. Diagnosis: 1. Attention deficit hyperactivity disorder (ADHD), predominantly inattentive type - dextroamphetamine-amphetamine (ADDERALL) 15 mg tablet; Take 1 Tablet by mouth 3 (three) times daily for 30 days. Dispense: 90 Tablet; Refill: 0 2. Daytime hypersomnolence - modafiniL (PROVIGIL) 100 mg tablet; Take 1 Tablet by mouth once daily. Dispense: 30 Tablet; Refill: 1 3. Generalized anxiety disorder - LORazepam (ATIVAN) 1 mg tablet; Take 1 Tablet by mouth 2 (two) times daily as needed for anxiety. Dispense: 15 Tablet; Refill: 0 - venlafaxine XR (EFFEXOR XR) 150 mg 24 hr capsule; Take 1 Capsule by mouth once daily with breakfast along with 75 mg, for a total daily dose of 225 mg. Dispense: 30 Capsule; Refill: 0 - venlafaxine XR (EFFEXOR XR) 75 mg 24 hr capsule; Take 1 Capsule by mouth once daily with breakfast along with 150 mg, for a total daily dose of 225 mg. Dispense: 30 Capsule; Refill: 0 4. PTSD (post-traumatic stress disorder) - prazosin (MINIPRESS) 1 mg capsule; Take 1 Capsule by mouth nightly at bedtime. Dispense: 30 Capsule; Refill: 0 - venlafaxine XR (EFFEXOR XR) 150 mg 24 hr capsule; Take 1 Capsule by mouth once daily with breakfast along with 75 mg, for a total daily dose of 225 mg. Dispense: 30 Capsule; Refill: 0 - venlafaxine XR (EFFEXOR XR) 75 mg 24 hr capsule; Take 1 Capsule by mouth once daily with breakfast along with 150 mg, for a total daily dose of 225 mg. Dispense: 30 Capsule; Refill: 0 5. Schizoaffective disorder, bipolar type ([facility]) - venlafaxine XR (EFFEXOR XR) 150 mg 24 hr capsule; Take 1 Capsule by mouth once daily with breakfast along with 75 mg, for a total daily dose of 225 mg. Dispense: 30 Capsule; Refill: 0 - venlafaxine XR (EFFEXOR XR) 75 mg 24 hr capsule; Take 1 Capsule by mouth once daily with breakfast along with 150 mg, for a total daily dose of 225 mg. Dispense: 30 Capsule; Refill: 0 Plan: Pt returns to Dr. Mosquera's office 04/16 to discuss results of Multiple Sleep Latency Test performed last week; gave him the most direct fax # to send those to me and asked him to give this to the sleep medicine clinic when he goes in, as I have had no luck with reaching them despite multiple attempts (this was a referral I made in Nov, so they should send me records automatically but thus far they have sent nothing) Continue Adderall IR 15 mg PO tid for ADHD (may try different med or adjust dose depending upon results of MSLT and recommendation from sleep doctor) Continue modafinil 100 mg PO qam for daytime hypersomnolence (may try different med or adjust dose depending upon results of MSLT and recommendation from sleep doctor) Continue prazosin 1 mg PO qhs for PTSD-related nightmares Continue Effexor 225 mg PO qam for depression/anxiety Continue lorazepam 1 mg PO bid PRN for acute anxiety; dispensing #15 for 30-d/s Further medication changes will depend on client report of symptoms and tolerability RTC in 4 weeks Explained rationale for medication choices and discussed possible risks, benefits and alternative treatment with client (parent/guardian)? [x] Yes [] No Client/Guardian Response: [x] Understands Information [] Does Not Understand [x] Agrees with Medication [] Refuses Medication documented in this encounter [employer] Work Phone: 03-16-2025 History of Present illness Narrative Tele-Health Visit Statement [employer] The patient's identity was verified and they have verbally stated that they are currently in the [facility]. The risks, benefits, and alternatives of a real time synchronous audiovisual consultation were discussed with the patient and/or their guardian and they have given their verbal consent to this tele-health visit. This visit took place via tele-health video visit Additional persons on the call: no one Electromechanic used/present: Not Applicable Patient location : home Provider location : Visit occurred in clinic Chief Complaint Patient presents with Follow Up Medication Management Mood Disorder Autism Objective Have left 2 messages for Wanda [address]. Mosquera's office, - no call back. She is at the sleep clinic and reportedly wanted to talk about his psych meds (I assume stopping the appropriate ones before the scheduled MSLT 03/23 and 03/24, likely the Wellbutrin/modafinil/Adderall). Plan was to d/c Wellbutrin today, and pt can d/c the Adderall and/or the modafinil at any time. The mirtazapine was already d/c'd, and the Effexor cannot be d/c'd in a few weeks time, and I do not want patient to be on no antidepressant, especially suddenly. Mil said that Wanda wanted him off all stimulant type medications - discussed stopping the Wellbutrin now, stopping the modafinil in a few days, and then I advised that he should start tapering himself off the Adderall now (currently taking it three times per day). Advised that I suggest being off the Adderall completely at least one full day before the test (so that would be Sun 03/22, not taking the Adderall). If he follows this, he will be off the Wellbutrin, modafinil, and Adderall for at least a couple days before the Multiple Sleep Latency Test at the sleep clinic. Confirmed that I do not want to make any changes to Effexor, and that the prazosin is fine to keep taking, although do not take the night of the sleep test. Also advised that PRN lorazepam is okay as he takes that sparingly for anxiety so that is not a contributor to his daytime hypersomnolence and also is not counteracting it in any way. Mil does work every day between now and the sleep study, so I advised that he can taper the Adderall at his discretion, as long as he does not take it for a day before the sleep study. He notes he has started keeping more to himself and has been more irritable at work and with his since our last appt. His mood tends to dip this time of year, and we just tapered him off the mirtazapine, which was not noticeable going from 45 to 30, but it seems may have been providing benefit after all. May choose to restart this med with target dose of 30 mg after sleep study. No SI, nenita or psychosis. f/u: Mil was recently diagnosed officially with Autism at [facility]. 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 He did not notice any difference in lowering the mirtazapine to 30 mg, so he would like to reduced it further to 15 mg for 2 weeks and then d/c. 03/23 and 03/24 sleep medicine wants to do a full sleep study and then an MSLT - his sleep medicine provider said that she wants him off all of his psych meds for 2-3 weeks before that, which is not possible, bc that would mean getting him off all psych meds in the next 1-2 weeks. He said she was supposed to reach out to me, but as of today I have not heard anything. He will give her my email address and ask her to message me. Plan: Reduce mirtazapine to 15 mg for 2 weeks, then d/c Will d/c Wellbutrin at next appt Will discuss with sleep medicine provider what kind of timeframe she would like me to get him off his psych meds - impossible to have him off all psych meds in one week from today, which is what would be needed for him to be off all psych meds 3 weeks prior to planned sleep study and MSLT 03/23 and 03/24 Continue modafinil 100 mg PO qam for daytime hypersomnolence/ executive dysfunction Continue Adderall IR 15 mg PO tid for ADHD Continue prazosin 1 mg PO qhs for PTSD-related nightmares Continue Effexor 225 mg PO qam for depression/anxiety Continue lorazepam 1 mg PO bid PRN for acute anxiety; dispensing #15 for 30-d/s Further medication changes will depend on client report of symptoms and tolerability RTC 03/16 [facility] Mil Toro is a 24 year old Adult here today for follow-up med management visit. Symptoms include sadness (worse since I've been stuck at home; go back next Sunday; before that was there, normal for me), decreased interest (not it; kind of been the same throughout), hopelessness, panic (handful, 4-5; 10m; out of nowhere talk to random somebody that I know), difficulty concentrating (yeah), increased fatigue (worse last couple weeks) and sleep disturbance (since surgery maybe an hour or two a night sleeping on my couch very uncomfortable, have to sleep in recliner; 1-2h; napping trying to avoid it; not restorative). Patient denies or there is no evidence of low self-esteem, guilt, nervousness/anxiousness (not too bad), inflated self-esteem, decreased need for sleep, euphoric mood, hallucinations, irritability, appetite change, suicidal ideas or homicidal ideas. Thoughts that would be easier: Plan:. Weight change: h/o disordered eating does weigh self. Onset of these symptoms was more than 1 year ago. Patient's report of symptoms since onset: unchanged. Symptoms occur constantly. The severity of symptoms is moderate. : 50h/w. Past treatments tried include: Medication therapy, which was effective. Psychotherapy treatment, which was effective (Kelly at [facility] see her next week). . Compliance with prior treatments has been good. Last KULDEEP-7 KULDEEP-7 Total (!) 21 at 04/24/2024 10:14 AM Last PHQ-9 PHQ-9 Total Score (Auto Calculated) (!) 20 at 06/06/2024 10:14 AM HIV Care No results found for: CD4, COPIESML, HELPSUPP If client is HIV+, provider reviewed HIV care, Viral Load, and CD4: Not applicable AIMS 01/20/2025 2:00 PM 1. Muscles of facial expression none 2. [...] 05/31/2020 4.3 uU/mL WBC (x10E3/uL) Date Value 04/24/2024 7.0 01/23/2024 6.4 RBC (x10E6/uL) Date Value 04/24/2024 5.32 (H) 01/23/2024 5.65 (H) HGBA1C (%) Date Value 04/24/2024 5.3 07/27/2023 5.9 (H) HGB (g/dL) Date Value 04/24/2024 14.9 01/23/2024 15.9 HCT (%) Date Value 04/24/2024 47.5 (H) 01/23/2024 48.4 (H) CHOL (mg/dL) Date Value 04/24/2024 138 08/08/2023 168 TRIGLYC (mg/dL) Date Value 04/24/2024 96 08/08/2023 146 HDL (mg/dL) Date Value 04/24/2024 37 (L) 08/08/2023 44 LDL (mg/dL) Date Value 04/24/2024 83 08/08/2023 98 VLDL (mg/dL) Date Value 04/24/2024 18 08/08/2023 26 GLUCOSE (mg/dL) Date Value 04/24/2024 79 01/23/2024 90 BUN (mg/dL) Date Value 04/24/2024 11 01/23/2024 7 CREATININE (mg/dL) Date Value 04/24/2024 1.00 01/23/2024 1.07 (H) EGFR (mL/min/1.73) Date Value 04/24/2024 80 01/23/2024 74 05/31/2020 111 05/31/2020 128 AST (IU/L) Date Value 04/24/2024 16 01/23/2024 20 ALT (IU/L) Date Value 04/24/2024 16 01/23/2024 19 BILIRUBIN (mg/dL) Date Value 04/24/2024 0.3 01/23/2024 0.3 No results found for: URAMPHETQL, URCOCAINEQL, URTHCQL, UROPIATEQL, URETOHQL, URBUPRENQL, URBENZOQL, URMETHDQL Review of Systems Constitutional: Negative for appetite change. Psychiatric/Behavioral: Positive for sleep disturbance (since surgery maybe an hour or two a night sleeping on my couch very uncomfortable, have to sleep in recliner; 1-2h; napping trying to avoid it; not restorative). Negative for hallucinations, homicidal ideas and suicidal ideas. The patient is not nervous/anxious (not too bad). Mental Status Exam Appearance is appropriate for circumstance. General Health is generally good. Eye Contact is good. Motor Activity is unremarkable. Speech is unremarkable. Affect is constricted (much more reactive than previouslyl)Blunted: baseline.. slight Reported Mood is depressed. pretty good Thought Content is unremarkable. Thought Process is goal-directed and is linear. Perception is unremarkable. Attention is alert. Demeanor is appropriate for situation. Insight is appropriate. Judgement is appropriate. Orientation is fully oriented. Memory is grossly intact and not formally tested. Narrative: Reviewed OARRS report 03/13/2025 which reveals lorazepam 1 mg #15 for 30-d/s last filled 02/24/25, Adderall IR 15 mg #90 for 30-d/s last filled 02/18/25, and modafinil 100 mg #30 for 30-d/s last filled 02/16/25 Total visit time today, including time spent reviewing chart and/or consulting prior to or after appointment was 35 minutes. Greater than 50% of this time was spent providing counseling and care coordination around chief complaint, including any additional diagnoses listed above. Shared-decision making was made with consideration for patient specific factors. All patient's questions were answered and patient verbally confirms and understands plan of care. Diagnosis: 1. Attention deficit hyperactivity disorder (ADHD), predominantly inattentive type - dextroamphetamine-amphetamine (ADDERALL) 15 mg tablet; Take 1 Tablet by mouth 3 (three) times daily for 30 days. Dispense: 90 Tablet; Refill: 0 2. Daytime hypersomnolence - modafiniL (PROVIGIL) 100 mg tablet; Take 1 Tablet by mouth once daily. Dispense: 30 Tablet; Refill: 0 3. Generalized anxiety disorder - LORazepam (ATIVAN) 1 mg tablet; Take 1 Tablet by mouth 2 (two) times daily as needed for anxiety. Dispense: 15 Tablet; Refill: 0 - venlafaxine XR (EFFEXOR XR) 150 mg 24 hr capsule; Take 1 Capsule by mouth once daily with breakfast along with 75 mg, for a total daily dose of 225 mg. Dispense: 30 Capsule; Refill: 0 - venlafaxine XR (EFFEXOR XR) 75 mg 24 hr capsule; Take 1 Capsule by mouth once daily with breakfast along with 150 mg, for a total daily dose of 225 mg. Dispense: 30 Capsule; Refill: 0 4. PTSD (post-traumatic stress disorder) - prazosin (MINIPRESS) 1 mg capsule; Take 1 Capsule by mouth nightly at bedtime. Dispense: 30 Capsule; Refill: 0 - venlafaxine XR (EFFEXOR XR) 150 mg 24 hr capsule; Take 1 Capsule by mouth once daily with breakfast along with 75 mg, for a total daily dose of 225 mg. Dispense: 30 Capsule; Refill: 0 - venlafaxine XR (EFFEXOR XR) 75 mg 24 hr capsule; Take 1 Capsule by mouth once daily with breakfast along with 150 mg, for a total daily dose of 225 mg. Dispense: 30 Capsule; Refill: 0 5. Schizoaffective disorder, bipolar type ([facility]) - venlafaxine XR (EFFEXOR XR) 150 mg 24 hr capsule; Take 1 Capsule by mouth once daily with breakfast along with 75 mg, for a total daily dose of 225 mg. Dispense: 30 Capsule; Refill: 0 - venlafaxine XR (EFFEXOR XR) 75 mg 24 hr capsule; Take 1 Capsule by mouth once daily with breakfast along with 150 mg, for a total daily dose of 225 mg. Dispense: 30 Capsule; Refill: 0 Plan: D/C Wellbutrin D/c modafinil in a few days Start tapering off Adderall, with plan to be off entirely at least 24 hours before sleep study Advised pt from my perspective, okay to restart modafinil and Adderall after sleep study, although I will defer to their expertise Continue prazosin 1 mg PO qhs for PTSD-related nightmares Continue Effexor 225 mg PO qam for depression/anxiety After sleep study, may reintroduce 30 mg mirtazapine as he noticed more irritability/depression when he stopped it (could be related to season or other reasons though) Continue lorazepam 1 mg PO bid PRN for acute anxiety; dispensing #15 for 30-d/s Further medication changes will depend on client report of symptoms and tolerability RTC in 2 weeks Explained rationale for medication choices and discussed possible risks, benefits and alternative treatment with client (parent/guardian)? [x] Yes [] No Client/Guardian Response: [x] Understands Information [] Does Not Understand [x] Agrees with Medication [] Refuses Medication documented in this encounter [facility] Phone: 03-11-2025 History of Present illness Narrative Rec'd message that Wanda Cardenas from Dr. Mosquera's office called and requested a call back at [phone]. Initially, the number rang busy. For the second attempt, the phone rang with no answer, at least ten times before I disconnected the call. Third attempt, a woman answered and said that Wanda is unexpectedly out of the office due to a family emergency but she has been trying to reach you. I asked if there was anyone else who I could talk to and she said that there was not. Dr. Mosquera is the sleep doctor and she is calling regarding a test, presumable the MSLT Presumably this is the sleep medicine doctor's office and this is regarding the MSLT (Multi;le Sleep Latency Test) pt told me was scheduled for 03/23 and 03/24, for which he is supposed to be off all psych meds 2-3 weeks prior. We did taper pt off mirtazapine at last appt and the plan is to d/c Wellbutrin at next appt, so there would be no concern with d/c'ing the Wellbutrin now. I would also be okay with patient stopping the modafinil and Adderall, which I presume are the main medications the doctor is concerned about. None of those require a taper. Of course pt will be very tired for the weeks he is off all these meds, especially at first. The Effexor requires a slow taper, as in over at least several months, and I do not want pt to not be taking an antidepressant, and if they want him to not take the prazosin at bedtime that is fine as well. Left my cell phone number along with request to please call during my 30 min administrative block as otherwise I am booked to see patients all day the rest of the week. documented in this encounter [facility] Phone: 02-24-2025 History of Present illness Narrative Tele-Health Visit Statement [employer] The patient's identity was verified and they have verbally stated that they are currently in the state [facility]. The risks, benefits, and alternatives of a real time synchronous audiovisual consultation were discussed with the patient and/or their guardian and they have given their verbal consent to this tele-health visit. This visit took place via tele-health video visit Additional persons on the call: no one Electromechanic used/present: Not Applicable Patient location : home Provider location : Visit occurred in clinic Chief Complaint Patient presents with Follow Up Medication Management Attention Deficit Anxiety Bipolar Disorder Objective Mil was recently diagnosed officially with Autism at [facility]. 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 He did not notice any difference in lowering the mirtazapine to 30 mg, so he would like to reduced it further to 15 mg for 2 weeks and then d/c. 03/23 and 03/24 sleep medicine wants to do a full sleep study and then an MSLT - his sleep medicine provider said that she wants him off all of his psych meds for 2-3 weeks before that, which is not possible, bc that would mean getting him off all psych meds in the next 1-2 weeks. He said she was supposed to reach out to me, but as of today I have not heard anything. He will give her my email address and ask her to message me. 01/20/25 f/u: Mil just started training for the [employer], which is something that he's always wanted to do, but there have never been any openings. 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 Their expectation is 4 hours per week. He is enjoying the training so far. 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 However, he reports that he's doing really well at it so far, which he's pleased about, as historically he has not done well in an academic setting. He believes that the difference is that this is something that he's interested in. He just finished his therapy apt. Work is busy and it depends on the day how stressful it is. The work itself has been chaotic; they're in the window for a visit from the [place], so everyone is on edge for that reason. For the last 6 years, he has lucked out in that he is often not working when they show up; the first time was last year and he was in the shower room, where they tend to not come. His kids' father's mom still works at his workplace and has finally learned that she should not cause issues with Mil, although for a while sh was still causing issues with Mil's , who also works there. The kids are doing well; Mil reports that they've grown a lot this summer and are outgrowing a lot of their clothes; they both see a counselor at school. Mood goes back and forth. He notes that he gets irritable quickly related to minor things, and the mood swings t hat go along with that are very random and quick. For the most part, I feel like my mood is very good, I've been a lot more positive here the last few months. Yesterday, he was trying to write a book, and he couldn't concentrate so I got very irritated and fly off the deep end. He states that this is described as feeling angry and disappointed that I can never finish anything. He reports that he was on Lamictal in the past through Sandy, who would make frequent and multiple changes His sleep appt is coming up on Sunday; there are some nights where he's back to not sleeping at all. Last night he crashed and slept excessively. Mil is interested in trying to reduce some of his meds. No SI, nenita or psychosis. 01/20/25 Plan: Pt wants to try tapering off some meds and does not want to be on so many psych meds if possible; advised we will do this slowly and deliberately, as I agree with this plan Reduce mirtazapine to 30 mg PO qhs for depression/anxiety; if he tolerates this, will likely reduce further to 15 mg for 2 weeks and then d/c at next appt Continue modafinil 100 mg PO qam for daytime hypersomnolence/ executive dysfunction Continue Adderall IR 15 mg PO tid for ADHD Continue prazosin 1 mg PO qhs for PTSD-related nightmares Continue Wellbutrin XL 150 mg PO qam for depression/ADHD (will likely try d/c'ing this next if successful with tapering off mirtazapine, as he reports some irritability/ quickness to anger and frustration that could be worsened by Wellbutrin Continue Effexor 225 mg PO qam for depression/anxiety Continue lorazepam 1 mg PO bid PRN for acute anxiety; dispensing #15 for 30-d/s Pt has sleep doctor appt next week - will discuss results at next appt Once finished tapering off meds that may not be needed, may consider trying Lamictal for mood stability and emotional reactivity (was on previously with unknown efficacy due to being on so many other meds, and then restarted with Silvia but stopped due to rash which does not sound like a concerning rash, so if Lamictal is reinitiated, will go very low and slow) Further medication changes will depend on client report of symptoms and tolerability RTC in 4-6 weeks HPI Mil Toro is a 24 year old Adult here today for follow-up med management visit. Symptoms include sadness (worse since I've been stuck at home; go back next Sunday; before that was there, normal for me), decreased interest (not it; kind of been the same throughout), hopelessness, panic (handful, 4-5; 10m; out of nowhere talk to random somebody that I know), difficulty concentrating (yeah), increased fatigue (worse last couple weeks) and sleep disturbance (since surgery maybe an hour or two a night sleeping on my couch very uncomfortable, have to sleep in recliner; 1-2h; napping trying to avoid it; not restorative). Patient denies or there is no evidence of low self-esteem, guilt, nervousness/anxiousness (not too bad), inflated self-esteem, decreased need for sleep, euphoric mood, hallucinations, irritability, appetite change, suicidal ideas or homicidal ideas. Thoughts that would be easier: Plan:. Weight change: h/o disordered eating does weigh self. Onset of these symptoms was more than 1 year ago. Patient's report of symptoms since onset: unchanged. Symptoms occur constantly. The severity of symptoms is moderate. : 50h/w. Past treatments tried include: Medication therapy, which was effective. Psychotherapy treatment, which was effective (Kelly at [facility] see her next week). . Compliance with prior treatments has been good. Last KULDEEP-7 KULDEEP-7 Total (!) 21 at 04/24/2024 10:14 AM Last PHQ-9 PHQ-9 Total Score (Auto Calculated) (!) 20 at 06/06/2024 10:14 AM HIV Care No results found for: CD4, COPIESML, HELPSUPP If client is HIV+, provider reviewed HIV care, Viral Load, and CD4: Not applicable AIMS 01/20/2025 2:00 PM 1. Muscles of facial expression none 2. [...] 05/31/2020 4.3 uU/mL WBC (x10E3/uL) Date Value 04/24/2024 7.0 01/23/2024 6.4 RBC (x10E6/uL) Date Value 04/24/2024 5.32 (H) 01/23/2024 5.65 (H) HGBA1C (%) Date Value 04/24/2024 5.3 07/27/2023 5.9 (H) HGB (g/dL) Date Value 04/24/2024 14.9 01/23/2024 15.9 HCT (%) Date Value 04/24/2024 47.5 (H) 01/23/2024 48.4 (H) CHOL (mg/dL) Date Value 04/24/2024 138 08/08/2023 168 TRIGLYC (mg/dL) Date Value 04/24/2024 96 08/08/2023 146 HDL (mg/dL) Date Value 04/24/2024 37 (L) 08/08/2023 44 LDL (mg/dL) Date Value 04/24/2024 83 08/08/2023 98 VLDL (mg/dL) Date Value 04/24/2024 18 08/08/2023 26 GLUCOSE (mg/dL) Date Value 04/24/2024 79 01/23/2024 90 BUN (mg/dL) Date Value 04/24/2024 11 01/23/2024 7 CREATININE (mg/dL) Date Value 04/24/2024 1.00 01/23/2024 1.07 (H) EGFR (mL/min/1.73) Date Value 04/24/2024 80 01/23/2024 74 05/31/2020 111 05/31/2020 128 AST (IU/L) Date Value 04/24/2024 16 01/23/2024 20 ALT (IU/L) Date Value 04/24/2024 16 01/23/2024 19 BILIRUBIN (mg/dL) Date Value 04/24/2024 0.3 01/23/2024 0.3 No results found for: URAMPHETQL, URCOCAINEQL, URTHCQL, UROPIATEQL, URETOHQL, URBUPRENQL, URBENZOQL, URMETHDQL Review of Systems Constitutional: Negative for appetite change. Psychiatric/Behavioral: Positive for sleep disturbance (since surgery maybe an hour or two a night sleeping on my couch very uncomfortable, have to sleep in recliner; 1-2h; napping trying to avoid it; not restorative). Negative for hallucinations, homicidal ideas and suicidal ideas. The patient is not nervous/anxious (not too bad). Mental Status Exam Appearance is appropriate for circumstance. General Health is generally good. Eye Contact is good. Motor Activity is unremarkable. Speech is unremarkable. Affect is constricted (much more reactive than previouslyl)Blunted: baseline.. slight Reported Mood is neutral/euthymic. pretty good Thought Content is unremarkable. Thought Process is goal-directed and is linear. Perception is unremarkable. Attention is alert. Demeanor is appropriate for situation. Insight is appropriate. Judgement is appropriate. Orientation is fully oriented. Memory is grossly intact and not formally tested. Narrative: Reviewed OARRS report 02/23/2025 which reveals Adderall IR 15 mg #90 for 30-d/s last filled 02/18/25, modafinil 100 mg #30 for 30-d/s last filled 02/16/25, and lorazepam 1 mg #15 for 30-d/s last filled 01/17/25 Total visit time today, including time spent reviewing chart and/or consulting prior to or after appointment was 25 minutes. Greater than 50% of this time was spent providing counseling and care coordination around chief complaint, including any additional diagnoses listed above. Shared-decision making was made with consideration for patient specific factors. All patient's questions were answered and patient verbally confirms and understands plan of care. Diagnosis: 1. Schizoaffective disorder, bipolar type ([facility]) - buPROPion XL (WELLBUTRIN XL) 150 mg 24 hr tablet; Take 1 Tablet by mouth daily. Dispense: 30 Tablet; Refill: 0 - venlafaxine XR (EFFEXOR XR) 150 mg 24 hr capsule; Take 1 Capsule by mouth once daily with breakfast along with 75 mg, for a total daily dose of 225 mg. Dispense: 30 Capsule; Refill: 0 - venlafaxine XR (EFFEXOR XR) 75 mg 24 hr capsule; Take 1 Capsule by mouth once daily with breakfast along with 150 mg, for a total daily dose of 225 mg. Dispense: 30 Capsule; Refill: 2 2. PTSD (post-traumatic stress disorder) - buPROPion XL (WELLBUTRIN XL) 150 mg 24 hr tablet; Take 1 Tablet by mouth daily. Dispense: 30 Tablet; Refill: 0 - prazosin (MINIPRESS) 1 mg capsule; Take 1 Capsule by mouth nightly at bedtime. Dispense: 30 Capsule; Refill: 0 - venlafaxine XR (EFFEXOR XR) 150 mg 24 hr capsule; Take 1 Capsule by mouth once daily with breakfast along with 75 mg, for a total daily dose of 225 mg. Dispense: 30 Capsule; Refill: 0 - venlafaxine XR (EFFEXOR XR) 75 mg 24 hr capsule; Take 1 Capsule by mouth once daily with breakfast along with 150 mg, for a total daily dose of 225 mg. Dispense: 30 Capsule; Refill: 2 3. Attention deficit hyperactivity disorder (ADHD), predominantly inattentive type - buPROPion XL (WELLBUTRIN XL) 150 mg 24 hr tablet; Take 1 Tablet by mouth daily. Dispense: 30 Tablet; Refill: 0 4. Generalized anxiety disorder - LORazepam (ATIVAN) 1 mg tablet; Take 1 Tablet by mouth 2 (two) times daily as needed for anxiety. Dispense: 15 Tablet; Refill: 0 - venlafaxine XR (EFFEXOR XR) 150 mg 24 hr capsule; Take 1 Capsule by mouth once daily with breakfast along with 75 mg, for a total daily dose of 225 mg. Dispense: 30 Capsule; Refill: 0 - venlafaxine XR (EFFEXOR XR) 75 mg 24 hr capsule; Take 1 Capsule by mouth once daily with breakfast along with 150 mg, for a total daily dose of 225 mg. Dispense: 30 Capsule; Refill: 2 5. Daytime hypersomnolence - modafiniL (PROVIGIL) 100 mg tablet; Take 1 Tablet by mouth once daily. Dispense: 30 Tablet; Refill: 0 Plan: Reduce mirtazapine to 15 mg for 2 weeks, then d/c Will d/c Wellbutrin at next appt Will discuss with sleep medicine provider what kind of timeframe she would like me to get him off his psych meds - impossible to have him off all psych meds in one week from today, which is what would be needed for him to be off all psych meds 3 weeks prior to planned sleep study and MSLT 03/23 and 03/24 Continue modafinil 100 mg PO qam for daytime hypersomnolence/ executive dysfunction Continue Adderall IR 15 mg PO tid for ADHD Continue prazosin 1 mg PO qhs for PTSD-related nightmares Continue Effexor 225 mg PO qam for depression/anxiety Continue lorazepam 1 mg PO bid PRN for acute anxiety; dispensing #15 for 30-d/s Further medication changes will depend on client report of symptoms and tolerability RTC 03/16 Explained rationale for medication choices and discussed possible risks, benefits and alternative treatment with client (parent/guardian)? [x] Yes [] No Client/Guardian Response: [x] Understands Information [] Does Not Understand [x] Agrees with Medication [] Refuses Medication documented in this encounter [facility] Phone: 02-23-2025 Miscellaneous Notes You might get an email asking you to complete a survey about your visit today. We hope you will take a few minutes and answer some questions about your experience. Your responses let us know what is working well and where we can improve. The email will come from [employer], which is the company that sends out our patient surveys. Thank you for your feedback and trusting us with your care. documented in this encounter [facility] Phone: 01-20-2025 History of Present illness Narrative Tele-Health Visit Statement [employer] The patient's identity was verified and they have verbally stated that they are currently in the [facility]. The risks, benefits, and alternatives of a real time synchronous audiovisual consultation were discussed with the patient and/or their guardian and they have given their verbal consent to this tele-health visit. This visit took place via tele-health video visit Additional persons on the call: no one Electromechanic used/present: Not Applicable Patient location : home Provider location : Visit occurred in clinic No chief complaint on file. Objective Mil just started training for the [employer], which is something that he's always wanted to do, but there have never been any openings. 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 Their expectation is 4 hours per week. He is enjoying the training so far. 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 However, he reports that he's doing really well at it so far, which he's pleased about, as historically he has not done well in an academic setting. He believes that the difference is that this is something that he's interested in. He just finished his therapy apt. Work is busy and it depends on the day how stressful it is. The work itself has been chaotic; they're in the window for a visit from the [facility], so everyone is on edge for that reason. For the last 6 years, he has lucked out in that he is often not working when they show up; the first time was last year and he was in the shower room, where they tend to not come. His kids' father's mom still works at his workplace and has finally learned that she should not cause issues with Mil, although for a while sh was still causing issues with Mil's , who also works there. The kids are doing well; Mil reports that they've grown a lot this summer and are outgrowing a lot of their clothes; they both see a counselor at school. Mood goes back and forth. He notes that he gets irritable quickly related to minor things, and the mood swings t hat go along with that are very random and quick. For the most part, I feel like my mood is very good, I've been a lot more positive here the last few months. Yesterday, he was trying to write a book, and he couldn't concentrate so I got very irritated and fly off the deep end. He states that this is described as feeling angry and disappointed that I can never finish anything. He reports that he was on Lamictal in the past through Sandy, who would make frequent and multiple changes His sleep appt is coming up on Sunday; there are some nights where he's back to not sleeping at all. Last night he crashed and slept excessively. Mil is interested in trying to reduce some of his meds. No SI, nenita or psychosis. 11/06/24 f/u: Mil notes that with the addition of the modafinil, he finds it much easier to stay awake and not feel like he's dragging so much during the day. He also finds that most of the time it has really helped with his mood, although I have noticed that I'm more emotional. Discussed how he wanted to stop taking the Seroquel because he felt that it made him numb. He has been able to work up to 50 hours per week since starting the modafinil. He finds that his energy level is much higher during the day, but his motivation is still poor, and even though he's still very tired when he gets home from work, he still lays down and is unable to sleep. Estimates that he gets somewhere between 3 to 5 hours of sleep per night, depending upon the night. He bought an Aura ring which tracks his sleep so he has a better idea of how much he's actually getting. It tracks how much deep sleep and REM sleep he gets as well. He has not scheduled the appt with the sleep clinic that we talked about, as he has had a lot of stressors happening with family but I do plan on scheduling that. Sleep is still poor; he understands that this needs to be addressed through the sleep clinic that he has been referred to and where he is supposed to follow up. Overall, he appears to be doing better; he smiles several times during today's appt which is not something that I have seen in quite a while. No SI, nenita or psychosis. 11/06/24 Plan: Continue modafinil 100 mg PO qam for daytime hypersomnolence/ executive dysfunction - sent msg to Cesilia Bradley asking to submit PA as per [facility] pharmacy one is needed but they did not send that to us (not on Other Orders) so we never requested one; in the meantime, pt will continue to pay OOP and he is aware that it's likely insurance will deny the PA Continue Adderall IR 15 mg PO tid for ADHD Continue prazosin 1 mg PO qhs for PTSD-related nightmares Continue lorazepam 1 mg PO bid PRN for acute anxiety; dispensing #15 for 30-d/s Continue mirtazapine 45 mg PO qhs for depression/anxiety Continue Wellbutrin XL 150 mg PO qam for depression/ADHD Continue Effexor 225 mg PO qam for depression/anxiety Again encouraged Mil to reschedule with sleep doctor DIONNE (the appt will actually be with his [employer]; Mil did not like the sleep medicine doctor so had decided not to return, but he has not yet met the [employer] and he might like him/her, and clearly the extremely poor sleep is a major complicating factor in terms of h is low energy and poor executive functioning) He completed the [employer] program and does not feel that it was helpful Further medication changes will depend on client report of symptoms and tolerability RTC in 8-10 weeks HPI Mil Toro is a 24 year old Adult here today for follow-up med management visit. Symptoms include sadness (worse since I've been stuck at home; go back next Sunday; before that was there, normal for me), decreased interest (not it; kind of been the same throughout), hopelessness, panic (handful, 4-5; 10m; out of nowhere talk to random somebody that I know), difficulty concentrating (yeah), increased fatigue (worse last couple weeks) and sleep disturbance (since surgery maybe an hour or two a night sleeping on my couch very uncomfortable, have to sleep in recliner; 1-2h; napping trying to avoid it; not restorative). Patient denies or there is no evidence of low self-esteem, guilt, nervousness/anxiousness (not too bad), inflated self-esteem, decreased need for sleep, euphoric mood, hallucinations, irritability, appetite change, suicidal ideas or homicidal ideas. Thoughts that would be easier: Plan:. Weight change: h/o disordered eating does weigh self. Onset of these symptoms was more than 1 year ago. Patient's report of symptoms since onset: unchanged. Symptoms occur constantly. The severity of symptoms is moderate. : 50h/w. Past treatments tried include: Medication therapy, which was effective. Psychotherapy treatment, which was effective ([facility] see her next week). . Compliance with prior treatments has been good. Last KULDEEP-7 KULDEEP-7 Total (!) 21 at 04/24/2024 10:14 AM Last PHQ-9 PHQ-9 Total Score (Auto Calculated) (!) 20 at 06/06/2024 10:14 AM HIV Care No results found for: CD4, COPIESML, HELPSUPP If client is HIV+, provider reviewed HIV care, Viral Load, and CD4: Not applicable AIMS 01/20/2025 2:00 PM 1. Muscles of facial expression none 2. [...] 05/31/2020 4.3 uU/mL WBC (x10E3/uL) Date Value 04/24/2024 7.0 01/23/2024 6.4 RBC (x10E6/uL) Date Value 04/24/2024 5.32 (H) 01/23/2024 5.65 (H) HGBA1C (%) Date Value 04/24/2024 5.3 07/27/2023 5.9 (H) HGB (g/dL) Date Value 04/24/2024 14.9 01/23/2024 15.9 HCT (%) Date Value 04/24/2024 47.5 (H) 01/23/2024 48.4 (H) CHOL (mg/dL) Date Value 04/24/2024 138 08/08/2023 168 TRIGLYC (mg/dL) Date Value 04/24/2024 96 08/08/2023 146 HDL (mg/dL) Date Value 04/24/2024 37 (L) 08/08/2023 44 LDL (mg/dL) Date Value 04/24/2024 83 08/08/2023 98 VLDL (mg/dL) Date Value 04/24/2024 18 08/08/2023 26 GLUCOSE (mg/dL) Date Value 04/24/2024 79 01/23/2024 90 BUN (mg/dL) Date Value 04/24/2024 11 01/23/2024 7 CREATININE (mg/dL) Date Value 04/24/2024 1.00 01/23/2024 1.07 (H) EGFR (mL/min/1.73) Date Value 04/24/2024 80 01/23/2024 74 05/31/2020 111 05/31/2020 128 AST (IU/L) Date Value 04/24/2024 16 01/23/2024 20 ALT (IU/L) Date Value 04/24/2024 16 01/23/2024 19 BILIRUBIN (mg/dL) Date Value 04/24/2024 0.3 01/23/2024 0.3 No results found for: URAMPHETQL, URCOCAINEQL, URTHCQL, UROPIATEQL, URETOHQL, URBUPRENQL, URBENZOQL, URMETHDQL Review of Systems Constitutional: Negative for appetite change. Psychiatric/Behavioral: Positive for sleep disturbance (since surgery maybe an hour or two a night sleeping on my couch very uncomfortable, have to sleep in recliner; 1-2h; napping trying to avoid it; not restorative). Negative for hallucinations, homicidal ideas and suicidal ideas. The patient is not nervous/anxious (not too bad). Mental Status Exam Appearance is appropriate for circumstance. General Health is generally good. Eye Contact is good. Motor Activity is unremarkable. Speech is unremarkable. Affect is constricted (much more reactive than previouslyl)Blunted: baseline.. slight Reported Mood is neutral/euthymic. pretty good Thought Content is unremarkable. Thought Process is goal-directed and is linear. Perception is unremarkable. Attention is alert. Demeanor is appropriate for situation. Insight is appropriate. Judgement is appropriate. Orientation is fully oriented. Memory is grossly intact and not formally tested. Narrative: Reviewed OARRS report 01/19/2025 which reveals modafinil 100 mg #30 last filled 01/17/25, lorazepam 1 mg #15 for 30-d/s last filled 01/17/25, and Adderall IR 15 mg #90 for 30-d/s last filled 12/30/24/ Total visit time today, including time spent reviewing chart and/or consulting prior to or after appointment was 32 minutes. Greater than 50% of this time was spent providing counseling and care coordination around chief complaint, including any additional diagnoses listed above. Shared-decision making was made with consideration for patient specific factors. All patient's questions were answered and patient verbally confirms and understands plan of care. Diagnosis: 1. Schizoaffective disorder, bipolar type ([facility]) - buPROPion XL (WELLBUTRIN XL) 150 mg 24 hr tablet; Take 1 Tablet by mouth daily. Dispense: 30 Tablet; Refill: 2 - mirtazapine (REMERON) 30 mg tablet; Take 1 Tablet by mouth nightly at bedtime. Dispense: 30 Tablet; Refill: 1 - venlafaxine XR (EFFEXOR XR) 150 mg 24 hr capsule; Take 1 Capsule by mouth once daily with breakfast along with 75 mg, for a total daily dose of 225 mg. Dispense: 30 Capsule; Refill: 2 - venlafaxine XR (EFFEXOR XR) 75 mg 24 hr capsule; Take 1 Capsule by mouth once daily with breakfast along with 150 mg, for a total daily dose of 225 mg. Dispense: 30 Capsule; Refill: 2 2. PTSD (post-traumatic stress disorder) - buPROPion XL (WELLBUTRIN XL) 150 mg 24 hr tablet; Take 1 Tablet by mouth daily. Dispense: 30 Tablet; Refill: 2 - mirtazapine (REMERON) 30 mg tablet; Take 1 Tablet by mouth nightly at bedtime. Dispense: 30 Tablet; Refill: 1 - prazosin (MINIPRESS) 1 mg capsule; Take 1 Capsule by mouth nightly at bedtime. Dispense: 30 Capsule; Refill: 1 - venlafaxine XR (EFFEXOR XR) 150 mg 24 hr capsule; Take 1 Capsule by mouth once daily with breakfast along with 75 mg, for a total daily dose of 225 mg. Dispense: 30 Capsule; Refill: 2 - venlafaxine XR (EFFEXOR XR) 75 mg 24 hr capsule; Take 1 Capsule by mouth once daily with breakfast along with 150 mg, for a total daily dose of 225 mg. Dispense: 30 Capsule; Refill: 2 3. Attention deficit hyperactivity disorder (ADHD), predominantly inattentive type - buPROPion XL (WELLBUTRIN XL) 150 mg 24 hr tablet; Take 1 Tablet by mouth daily. Dispense: 30 Tablet; Refill: 2 - dextroamphetamine-amphetamine (ADDERALL) 15 mg tablet; Take 1 Tablet by mouth 3 (three) times daily for 30 days. Dispense: 90 Tablet; Refill: 0 4. Generalized anxiety disorder - LORazepam (ATIVAN) 1 mg tablet; Take 1 Tablet by mouth 2 (two) times daily as needed for anxiety. Dispense: 15 Tablet; Refill: 2 - mirtazapine (REMERON) 30 mg tablet; Take 1 Tablet by mouth nightly at bedtime. Dispense: 30 Tablet; Refill: 1 - venlafaxine XR (EFFEXOR XR) 150 mg 24 hr capsule; Take 1 Capsule by mouth once daily with breakfast along with 75 mg, for a total daily dose of 225 mg. Dispense: 30 Capsule; Refill: 2 - venlafaxine XR (EFFEXOR XR) 75 mg 24 hr capsule; Take 1 Capsule by mouth once daily with breakfast along with 150 mg, for a total daily dose of 225 mg. Dispense: 30 Capsule; Refill: 2 5. Daytime hypersomnolence - modafiniL (PROVIGIL) 100 mg tablet; Take 1 Tablet by mouth once daily. Dispense: 30 Tablet; Refill: 2 Plan: Pt wants to try tapering off some meds and does not want to be on so many psych meds if possible; advised we will do this slowly and deliberately, as I agree with this plan Reduce mirtazapine to 30 mg PO qhs for depression/anxiety; if he tolerates this, will likely reduce further to 15 mg for 2 weeks and then d/c at next appt Continue modafinil 100 mg PO qam for daytime hypersomnolence/ executive dysfunction Continue Adderall IR 15 mg PO tid for ADHD Continue prazosin 1 mg PO qhs for PTSD-related nightmares Continue Wellbutrin XL 150 mg PO qam for depression/ADHD (will likely try d/c'ing this next if successful with tapering off mirtazapine, as he reports some irritability/ quickness to anger and frustration that could be worsened by Wellbutrin Continue Effexor 225 mg PO qam for depression/anxiety Continue lorazepam 1 mg PO bid PRN for acute anxiety; dispensing #15 for 30-d/s Pt has sleep doctor appt next week - will discuss results at next appt Once finished tapering off meds that may not be needed, may consider trying Lamictal for mood stability and emotional reactivity (was on previously with unknown efficacy due to being on so many other meds, and then restarted with Silvia but stopped due to rash which does not sound like a concerning rash, so if Lamictal is reinitiated, will go very low and slow) Further medication changes will depend on client report of symptoms and tolerability RTC in 4-6 weeks Explained rationale for medication choices and discussed possible risks, benefits and alternative treatment with client (parent/guardian)? [x] Yes [] No Client/Guardian Response: [x] Understands Information [] Does Not Understand [x] Agrees with Medication [] Refuses Medication documented in this encounter [employer] Work Phone: 11-06-2024 History of Present illness Narrative Tele-Health Visit Statement [employer] The patient's identity was verified and they have verbally stated that they are currently in the [facility]. The risks, benefits, and alternatives of a real time synchronous audiovisual consultation were discussed with the patient and/or their guardian and they have given their verbal consent to this tele-health visit. This visit took place via tele-health video visit Additional persons on the call: no one Electromechanic used/present: Not Applicable Patient location : home Provider location : Visit occurred in clinic Chief Complaint Patient presents with Follow Up Medication Management Mood Disorder Objective Mil notes that with the addition of the modafinil, he finds it much easier to stay awake and not feel like he's draggning so much during the day. He also finds that most of the time it has really helped with his mood, although I have noticed that I'm more emotional. Discussed how he wanted to stop taking the Seroquel because he felt that it made him numb. He has been able to work up to 50 hours per week since starting the modafinil. He finds that his energy level is much higher during the day, but his motivation is still poor, and even though he's still very tired when he gets home from work, he still lays down and is unable to sleep. Estimates that he gets somewhere between 3 to 5 hours of sleep per night, depending upon the night. He bought an Aura ring which tracks his sleep so he has a better idea of how much he's actually getting. It tracks how much deep sleep and REM sleep he gets as well. He has not scheduled the appt with the sleep clinic that we talked about, as he has had a lot of stressors happening with family but I do plan on scheduling that. Sleep is still poor; he understands that this needs to be addressed through the sleep clinic that he has been referred to and where he is supposed to follow up. Overall, he appears to be doing better; he smiles several times during today's appt which is not something that I have seen in quite a while/ No SI, nenita or psychosis. 10/09/24 f/u: Last saw patient 08/26; f/u visit was scheduled for 11/11/24; pt was supposed to try the CBT-i that was recommended by the sleep doctor and reschedule missed appt with sleep doctor. Pt called today and scheduled an appt in my Same Day slot. He tells me that he made the appt to let me know that his Seroquel got misplaced somehow; he just noticed that it was not in his basket, making him realize that he was not taking his Seroquel for about a month. He scheduled this appt because he wanted to talk about whether it makes sense for him to go back on the Seroquel or not. He and his have noticed that in the past 3 weeks, my personality has returned, I don't feel like a zombie like I used to. Interestingly, he also reports that his sleep is slightly better; still a struggle, but he does not go a full night without sleeping as he had been doing before. Discussed that this would indicate that the Seroquel was not helping with sleep at all. No SI, nenita or psychosis. St ruggling greatly with focus/attention and energy levels; discussed that this is almost certainly at least greatly complicated by poor sleep and again encouraged he reschedule with sleep medicine clinic, which he has not yet done. 10/09/24 Plan: Start modafinil 100 mg PO qam for daytime hypersomnolence/ executive dysfunction (advised pt it will likely require a PA and although it's a cheap medication and is being prescribed for a valid reason, based on the PA's I've requested for this med in the last year, it will probably be denied - priced a 30-d/s at $9.87 using [employer] through [employer] and encouraged him to use this Continue Adderall IR 15 mg PO tid for ADHD Continue prazosin 1 mg PO qhs for PTSD-related nightmares Continue lorazepam 1 mg PO bid PRN for acute anxiety; dispensing #15 for 30-d/s Continue mirtazapine 45 mg PO qhs for depression/anxiety Continue Wellbutrin XL 150 mg PO qam for depression/ADHD Continue Effexor 225 mg PO qsam for depression/anxiety D/c Seroquel as pt inadvertently stopped taking 3-4 weeks ago and is feeling better, less like a zombie; interestingly, he also reports somewhat improved sleep Again encouraged Mil to reschedule with sleep doctor DIONNE (the appt will actually be with his [employer]; Mil did not like the sleep medicine doctor so had decided not to return, but he has not yet met the [employer] and he might like him/her, and clearly the extremely poor sleep is a major complicating factor in terms of h is low energy and poor executive functioning He completed the CBT-I program and does not feel that it was helpful Further medication changes will depend on client report of symptoms and tolerability RTC 11/11 HPI Mil Toro is a 24 year old Adult here today for follow-up med management visit. Symptoms include sadness (worse since I've been stuck at home; go back next Sunday; before that was there, normal for me), decreased interest (not it; kind of been the same throughout), hopelessness, panic (handful, 4-5; 10m; out of nowhere talk to random somebody that I know), difficulty concentrating (yeah), increased fatigue (worse last couple weeks) and sleep disturbance (since surgery maybe an hour or two a night sleeping on my couch very uncomfortable, have to sleep in recliner; 1-2h; napping trying to avoid it; not restorative). Patient denies or there is no evidence of low self-esteem, guilt, nervousness/anxiousness (not too bad), inflated self-esteem, decreased need for sleep, euphoric mood, hallucinations, irritability, appetite change, suicidal ideas or homicidal ideas. Thoughts that would be easier: Plan:. Weight change: h/o disordered eating does weigh self. Onset of these symptoms was more than 1 year ago. Patient's report of symptoms since onset: unchanged. Symptoms occur constantly. The severity of symptoms is moderate. : 50h/w. Past treatments tried include: Medication therapy, which was effective. Psychotherapy treatment, which was effective ([facility] see her next week). . Compliance with prior treatments has been good. Last KULDEEP-7 KULDEEP-7 Total (!) 21 at 04/24/2024 10:14 AM Last PHQ-9 PHQ-9 Total Score (Auto Calculated) (!) 20 at 06/06/2024 10:14 AM HIV Care No results found for: CD4, COPIESML, HELPSUPP If client is HIV+, provider reviewed HIV care, Viral Load, and CD4: Not applicable AIMS 10/09/2024 11:00 AM 1. Muscles of facial expression none [...] 05/31/2020 4.3 uU/mL WBC (x10E3/uL) Date Value 04/24/2024 7.0 01/23/2024 6.4 RBC (x10E6/uL) Date Value 04/24/2024 5.32 (H) 01/23/2024 5.65 (H) HGBA1C (%) Date Value 04/24/2024 5.3 07/27/2023 5.9 (H) HGB (g/dL) Date Value 04/24/2024 14.9 01/23/2024 15.9 HCT (%) Date Value 04/24/2024 47.5 (H) 01/23/2024 48.4 (H) CHOL (mg/dL) Date Value 04/24/2024 138 08/08/2023 168 TRIGLYC (mg/dL) Date Value 04/24/2024 96 08/08/2023 146 HDL (mg/dL) Date Value 04/24/2024 37 (L) 08/08/2023 44 LDL (mg/dL) Date Value 04/24/2024 83 08/08/2023 98 VLDL (mg/dL) Date Value 04/24/2024 18 08/08/2023 26 GLUCOSE (mg/dL) Date Value 04/24/2024 79 01/23/2024 90 BUN (mg/dL) Date Value 04/24/2024 11 01/23/2024 7 CREATININE (mg/dL) Date Value 04/24/2024 1.00 01/23/2024 1.07 (H) EGFR (mL/min/1.73) Date Value 04/24/2024 80 01/23/2024 74 05/31/2020 111 05/31/2020 128 AST (IU/L) Date Value 04/24/2024 16 01/23/2024 20 ALT (IU/L) Date Value 04/24/2024 16 01/23/2024 19 BILIRUBIN (mg/dL) Date Value 04/24/2024 0.3 01/23/2024 0.3 No results found for: URAMPHETQL, URCOCAINEQL, URTHCQL, UROPIATEQL, URETOHQL, URBUPRENQL, URBENZOQL, URMETHDQL Review of Systems Constitutional: Negative for appetite change. Psychiatric/Behavioral: Positive for sleep disturbance (since surgery maybe an hour or two a night sleeping on my couch very uncomfortable, have to sleep in recliner; 1-2h; napping trying to avoid it; not restorative). Negative for hallucinations, homicidal ideas and suicidal ideas. The patient is not nervous/anxious (not too bad). Mental Status Exam Appearance is appropriate for circumstance. General Health is generally good. Eye Contact is good. Motor Activity is unremarkable. Speech is monotone. Affect is blunted (baseline). slight Reported Mood is neutral/euthymicDepressed: less so than prior to starting Efffexor but still persistent. Anxious: less anxious.. pretty good Thought Content is unremarkable. Thought Process is goal-directed and is linear. Perception is unremarkable. Attention is alert. Demeanor is appropriate for situation. Insight is appropriate. Judgement is appropriate. Orientation is fully oriented. Memory is grossly intact and not formally tested. Narrative: Reviewed OARRS report 11/06/2024 which reveals modafinil 100 mg #30 last filled 10/11/24 and lorazepam 1 mg #15 for 30-d/s last filled 10/09/24 and Adderall IR 15 mg #90 for 30-d/s last filled 09/29/24. Total visit time today, including time spent reviewing chart and/or consulting prior to or after appointment was 22 minutes. Greater than 50% of this time was spent providing counseling and care coordination around chief complaint, including any additional diagnoses listed above. Shared-decision making was made with consideration for patient specific factors. All patient's questions were answered and patient verbally confirms and understands plan of care. Diagnosis: 1. Schizoaffective disorder, bipolar type ([facility]) - buPROPion XL (WELLBUTRIN XL) 150 mg 24 hr tablet; Take 1 Tablet by mouth daily Dispense: 30 Tablet; Refill: 2 - mirtazapine (REMERON) 45 mg tablet; Take 1 Tablet by mouth nightly at bedtime Dispense: 30 Tablet; Refill: 2 - venlafaxine XR (EFFEXOR XR) 150 mg 24 hr capsule; Take 1 Capsule by mouth once daily with breakfast along with 75 mg, for a total daily dose of 225 mg Dispense: 30 Capsule; Refill: 2 - venlafaxine XR (EFFEXOR XR) 75 mg 24 hr capsule; Take 1 Capsule by mouth once daily with breakfast along with 150 mg, for a total daily dose of 225 mg Dispense: 30 Capsule; Refill: 2 2. PTSD (post-traumatic stress disorder) - buPROPion XL (WELLBUTRIN XL) 150 mg 24 hr tablet; Take 1 Tablet by mouth daily Dispense: 30 Tablet; Refill: 2 - mirtazapine (REMERON) 45 mg tablet; Take 1 Tablet by mouth nightly at bedtime Dispense: 30 Tablet; Refill: 2 - venlafaxine XR (EFFEXOR XR) 150 mg 24 hr capsule; Take 1 Capsule by mouth once daily with breakfast along with 75 mg, for a total daily dose of 225 mg Dispense: 30 Capsule; Refill: 2 - venlafaxine XR (EFFEXOR XR) 75 mg 24 hr capsule; Take 1 Capsule by mouth once daily with breakfast along with 150 mg, for a total daily dose of 225 mg Dispense: 30 Capsule; Refill: 2 3. Insomnia disorder, persistent, with mental disorder 4. Attention deficit hyperactivity disorder (ADHD), predominantly inattentive type - buPROPion XL (WELLBUTRIN XL) 150 mg 24 hr tablet; Take 1 Tablet by mouth daily Dispense: 30 Tablet; Refill: 2 - dextroamphetamine-amphetamine (ADDERALL) 15 mg tablet; Take 1 Tablet by mouth 3 (three) times daily for 30 days Dispense: 90 Tablet; Refill: 0 - dextroamphetamine-amphetamine (ADDERALL) 15 mg tablet; Take 1 Tablet by mouth 3 (three) times daily for 30 days Dispense: 90 Tablet; Refill: 0 - dextroamphetamine-amphetamine (ADDERALL) 15 mg tablet; Take 1 Tablet by mouth 3 (three) times daily for 30 days Dispense: 90 Tablet; Refill: 0 5. Daytime hypersomnolence - modafiniL (PROVIGIL) 100 mg tablet; Take 1 Tablet by mouth once daily Dispense: 30 Tablet; Refill: 2 6. Generalized anxiety disorder - LORazepam (ATIVAN) 1 mg tablet; Take 1 Tablet by mouth 2 (two) times daily as needed for anxiety Dispense: 15 Tablet; Refill: 2 - mirtazapine (REMERON) 45 mg tablet; Take 1 Tablet by mouth nightly at bedtime Dispense: 30 Tablet; Refill: 2 - venlafaxine XR (EFFEXOR XR) 150 mg 24 hr capsule; Take 1 Capsule by mouth once daily with breakfast along with 75 mg, for a total daily dose of 225 mg Dispense: 30 Capsule; Refill: 2 - venlafaxine XR (EFFEXOR XR) 75 mg 24 hr capsule; Take 1 Capsule by mouth once daily with breakfast along with 150 mg, for a total daily dose of 225 mg Dispense: 30 Capsule; Refill: 2 Plan: Continue modafinil 100 mg PO qam for daytime hypersomnolence/ executive dysfunction - sent msg to Ces[facility] asking to submit PA as per [facility] pharmacy one is needed but they did not send that to us (not on Other Orders) so we never requested one; in the meantime, pt will continue to pay OOP and he is aware that it's likely insurance will deny the PA Continue Adderall IR 15 mg PO tid for ADHD Continue prazosin 1 mg PO qhs for PTSD-related nightmares Continue lorazepam 1 mg PO bid PRN for acute anxiety; dispensing #15 for 30-d/s Continue mirtazapine 45 mg PO qhs for depression/anxiety Continue Wellbutrin XL 150 mg PO qam for depression/ADHD Continue Effexor 225 mg PO qam for depression/anxiety Again encouraged Mil to reschedule with sleep doctor DIONNE (the appt will actually be with his [employer]; Mil did not like the sleep medicine doctor so had decided not to return, but he has not yet met the [employer] and he might like him/her, and clearly the extremely poor sleep is a major complicating factor in terms of h is low energy and poor executive functioning) He completed the CBT-I program and does not feel that it was helpful Further medication changes will depend on client report of symptoms and tolerability RTC in 8-10 weeks Explained rationale for medication choices and discussed possible risks, benefits and alternative treatment with client (parent/guardian)? [x] Yes [] No Client/Guardian Response: [x] Understands Information [] Does Not Understand [x] Agrees with Medication [] Refuses Medication documented in this encounter [employer] Work Phone: 10-09-2024 History of Present illness Narrative Tele-Health Visit Statement [employer] The patient's identity was verified and they have verbally stated that they are currently in the [facility]. The risks, benefits, and alternatives of a real time synchronous audiovisual consultation were discussed with the patient and/or their guardian and they have given their verbal consent to this tele-health visit. This visit took place via tele-health video visit Additional persons on the call: no one Electromechanic used/present: Not Applicable Patient location : home Provider location : Visit occurred in clinic Chief Complaint Patient presents with Follow Up Medication Management Mood Disorder Objective Last saw patient 08/26; f/u visit was scheduled for 11/11/24; pt was supposed to try the CBT-i that was recommended by the sleep doctor and reschedule missed appt with sleep doctor. Pt called today and scheduled an appt in my Same Day slot. He tells me that he made the appt to let me know that his Seroquel got misplaced somehow; he just noticed that it was not in his basket, making him realize that he was not taking his Seroquel for about a month. He scheduled this appt because he wanted to talk about whether it makes sense for him to go back on the Seroquel or not. He and his have noticed that in the past 3 weeks, my personality has returned, I don't feel like a zombie like I used to. Interestingly, he also reports that his sleep is slightly better; still a struggle, but he does not go a full night without sleeping as he had been doing before. Discussed that this would indicate that the Seroquel was not helping with sleep at all. No SI, nenita or psychosis. St ruggling greatly with focus/attention and energy levels; discussed that this is almost certainly at least greatly complicated by poor sleep and again encouraged he reschedule with sleep medicine clinic, which he has not yet done. 08/26/24 f/u: Mil had to cancel his f/u appt with the sleep doctor d/t sickness and has not rescheduled. Encouraged him to do so. Mood has been very snappy and depression has been pretty bad which he attributes to not sleeping, and I agree with this. Again encouraged him to reschedule with sleep doctor and explore the CBT-I program I sent him after last appt. He did finish the 2-week sleep diary. Appetite is unchanged. I do not want to adjust the dose of the Seroquel until he has met with the sleep doctor again and tried CBT-I, which seems to be the priority at this time. He has been late to work 3-4 times this month because he reportedly goes 2-3 nights per week without any sleep, and then he lies in bed until around 5 am, and then he misses the alarm that's set for 5:50, 6 am, and 6:15. No SI, nenita or psychosis. 08/26/24 Plan: Encouraged pt to start the CBT-I program using the link I sent him and reschedule with sleep doctor ASAPContinue Effexor 225 mg PO qsam for depression/anxiety Continue Adderall IR 15 mg PO tid for ADHD Continue prazosin 1 mg PO qhs for PTSD-related nightmares Continue lorazepam 1 mg PO bid PRN for acute anxiety; dispensing #15 for 30-d/s Continue mirtazapine 45 mg PO qhs for depression/anxiety Continue Wellbutrin XL 150 mg PO qam for depression/ADHD Continue Seroquel 200 mg PO qhs for schizoaffective/ depressive adjunctive tx Further medication changes will depend on client report of symptoms and tolerability RTC in 12 weeks HPI Mil Toro is a 24 year old Adult here today for follow-up med management visit. Symptoms include sadness (worse since I've been stuck at home; go back next Sunday; before that was there, normal for me), decreased interest (not it; kind of been the same throughout), hopelessness, panic (handful, 4-5; 10m; out of nowhere talk to random somebody that I know), difficulty concentrating (yeah), increased fatigue (worse last couple weeks) and sleep disturbance (since surgery maybe an hour or two a night sleeping on my couch very uncomfortable, have to sleep in recliner; 1-2h; napping trying to avoid it; not restorative). Patient denies or there is no evidence of low self-esteem, guilt, nervousness/anxiousness (not too bad), inflated self-esteem, decreased need for sleep, euphoric mood, hallucinations, irritability, appetite change, suicidal ideas or homicidal ideas. Weight change: h/o disordered eating does weigh self. Onset of these symptoms was more than 1 year ago. Patient's report of symptoms since onset: unchanged. Symptoms occur constantly. The severity of symptoms is moderate. : 50h/w. Past treatments tried include: Medication therapy, which was effective. Psychotherapy treatment, which was effective (Kelly at [facility] see her next week). . Compliance with prior treatments has been good. Last KULDEEP-7 KULDEEP-7 Total (!) 21 at 04/24/2024 10:14 AM Last PHQ-9 PHQ-9 Total Score (Auto Calculated) (!) 20 at 06/06/2024 10:14 AM HIV Care No results found for: CD4, COPIESML, HELPSUPP If client is HIV+, provider reviewed HIV care, Viral Load, and CD4: Not applicable AIMS 10/09/2024 11:00 AM 1. Muscles of facial expression none [...] 05/31/2020 4.3 uU/mL WBC (x10E3/uL) Date Value 04/24/2024 7.0 01/23/2024 6.4 RBC (x10E6/uL) Date Value 04/24/2024 5.32 (H) 01/23/2024 5.65 (H) HGBA1C (%) Date Value 04/24/2024 5.3 07/27/2023 5.9 (H) HGB (g/dL) Date Value 04/24/2024 14.9 01/23/2024 15.9 HCT (%) Date Value 04/24/2024 47.5 (H) 01/23/2024 48.4 (H) CHOL (mg/dL) Date Value 04/24/2024 138 08/08/2023 168 TRIGLYC (mg/dL) Date Value 04/24/2024 96 08/08/2023 146 HDL (mg/dL) Date Value 04/24/2024 37 (L) 08/08/2023 44 LDL (mg/dL) Date Value 04/24/2024 83 08/08/2023 98 VLDL (mg/dL) Date Value 04/24/2024 18 08/08/2023 26 GLUCOSE (mg/dL) Date Value 04/24/2024 79 01/23/2024 90 BUN (mg/dL) Date Value 04/24/2024 11 01/23/2024 7 CREATININE (mg/dL) Date Value 04/24/2024 1.00 01/23/2024 1.07 (H) EGFR (mL/min/1.73) Date Value 04/24/2024 80 01/23/2024 74 05/31/2020 111 05/31/2020 128 AST (IU/L) Date Value 04/24/2024 16 01/23/2024 20 ALT (IU/L) Date Value 04/24/2024 16 01/23/2024 19 BILIRUBIN (mg/dL) Date Value 04/24/2024 0.3 01/23/2024 0.3 No results found for: URAMPHETQL, URCOCAINEQL, URTHCQL, UROPIATEQL, URETOHQL, URBUPRENQL, URBENZOQL, URMETHDQL Review of Systems Constitutional: Negative for appetite change. Cardiovascular: Positive for chest pain (per pt - sent message to PCP) and palpitations (per pt - sent message to PCP). Just with anxiety attacks; H/o the same PCP aware per him Gastrointestinal: Negative. Neurological: Negative for seizures. PD: denies noticing by either self or others (prev states shoulders; kind of like a tic; off and on; not new had that for a few years no change) Psychiatric/Behavioral: Positive for sleep disturbance (since surgery maybe an hour or two a night sleeping on my couch very uncomfortable, have to sleep in recliner; 1-2h; napping trying to avoid it; not restorative). Negative for hallucinations, homicidal ideas and suicidal ideas. The patient is not nervous/anxious (not too bad). Mental Status Exam Appearance is appropriate for circumstance. General Health is generally good. Eye Contact is good. Motor Activity is unremarkable. Speech is monotone. Affect is blunted (baseline). slight Reported Mood is indifferentDepressed: less so than prior to starting Efffexor but still persistent. Anxious: less anxious.. pretty good Thought Content is unremarkable. Thought Process is goal-directed and is linear. Perception is unremarkable. Attention is alert. Demeanor is appropriate for situation. Insight is appropriate. Judgement is appropriate. Orientation is fully oriented. Memory is grossly intact and not formally tested. Narrative: Reviewed [place] report 10/09/2024 which reveals Adderall IR 15 mg #90 for a 30-d/s last filled 09/29/24, lorazepam 1 mg #15 for 30-d/s last filled 08/26/24. Total visit time today, including time spent reviewing chart and/or consulting prior to or after appointment was 25 minutes. Greater than 50% of this time was spent providing counseling and care coordination around chief complaint, including any additional diagnoses listed above. Shared-decision making was made with consideration for patient specific factors. All patient's questions were answered and patient verbally confirms and understands plan of care. Diagnosis: 1. Schizoaffective disorder, bipolar type ([facility]) 2. PTSD (post-traumatic stress disorder) 3. Insomnia disorder, persistent, with mental disorder 4. Attention deficit hyperactivity disorder (ADHD), predominantly inattentive type Plan: Start modafinil 100 mg PO qam for daytime hypersomnolence/ executive dysfunction (advised pt it will likely require a PA and although it's a cheap medication and is being prescribed for a valid reason, based on the PA's I've requested for this med in the last year, it will probably be denied - priced a 30-d/s at $9.87 using [employer] through [employer] and encouraged him to use this Continue Adderall IR 15 mg PO tid for ADHD Continue prazosin 1 mg PO qhs for PTSD-related nightmares Continue lorazepam 1 mg PO bid PRN for acute anxiety; dispensing #15 for 30-d/s Continue mirtazapine 45 mg PO qhs for depression/anxiety Continue Wellbutrin XL 150 mg PO qam for depression/ADHD Continue Effexor 225 mg PO qsam for depression/anxiety D/c Seroquel as pt inadvertently stopped taking 3-4 weeks ago and is feeling better, less like a zombie; interestingly, he also reports somewhat improved sleep Again encouraged Mil to reschedule with sleep doctor DIONNE (the appt will actually be with his [employer]; Mil did not like the sleep medicine doctor so had decided not to return, but he has not yet met the [employer] and he might like him/her, and clearly the extremely poor sleep is a major complicating factor in terms of h is low energy and poor executive functioning He completed the CBT-I program and does not feel that it was helpful Further medication changes will depend on client report of symptoms and tolerability RTC 11/11 Explained rationale for medication choices and discussed possible risks, benefits and alternative treatment with client (parent/guardian)? [x] Yes [] No Client/Guardian Response: [x] Understands Information [] Does Not Understand [x] Agrees with Medication [] Refuses Medication documented in this encounter [facility] Phone: 09-16-2024 History of Present illness Narrative Chief Complaint / HPI: Chief Complaint Patient presents with Gender Affirming Hormone Therapy Discuss policies Prescription Refill Request Nausea Zofran refill Gender Affirming Hormone Therapy Nausea Associated symptoms include nausea. Problems Assessed, Plan, Orders & Medical Decision Making 1. Weight gain due to medication (Primary) Overview: Patient started in metformin in June and reports he has not lost any weight yet. Has also tried to continue to lower calories- cut out soda and is trying to eat better. Has been taking the metformin but does miss morning doses at times. 01/23/24 10/21/23 was at 288# pt is now at 244#. Pt is taking ozempic and topamax and feels that he is doing well on these medications. Pt would like to get to 200. 06/10/24 Pt states that he is doing well on the ozempic and would like refills 09/15/24 Pt states that he has come to a plateau with his weight loss, he would like to increase his dose of GLP if able 2. Gender dysphoria Overview: On Testosterone since 05/2020 Mastectomy 10/16/22 12/25/22 Patient had top surgery with Dr. Estes 10/16/22, healing well. Has had follow-up with her already and patient is pleased with results. 09/15/24 Pt states that he is doing well with his T. Assessment & Plan: Stable labs pending Orders: - needle, disp, 18 G (BD REGULAR BEVEL NEEDLES) 18 gauge x 1 ndle; Inject 1 Each into the muscle once a week, Disp-20 Each, R-2 e-Prescribing Dispense: 20 Each; Refill: 2 - syringe with needle (BD TUBERCULIN SYRINGE) 1 mL 25 gauge x 5/8 syrg; once a week, Disp-12 Each, R-2 e-Prescribing Dispense: 12 Each; Refill: 2 - insulin syringe-needle U-100 1 mL 25 gauge x 5/8; Use for weekly subcutaneous injections, no waste syringes if ablee-Prescribing, Disp-12 Each, R-2 Dispense: 12 Each; Refill: 2 - testosterone cypionate (DEPO-TESTOSTERONE) 200 mg/mL injection; INJECT 0.55 ML INTO THE MUSCLE EVERY 7 DAYS, Disp-10 mL, R-2 e-Prescribing, Long-term Dispense: 10 mL; Refill: 2 - ASSAY OF TOTAL ESTRADIOL; Future - ASSAY OF TESTOSTERONE TOTAL; Future 3. Prediabetes Overview: Patient taking metformin, no [...] 30lbs. He also struggles with daily diarrhea Orders: - metFORMIN XR (GLUCOPHAGE-XR) 500 mg 24 hr tablet; Take 2 tablets by mouth once daily with breakfast, Disp-60 Tablet, R-5 e-Prescribing, Long-term Dispense: 60 Tablet; Refill: 5 - ondansetron HCL (ZOFRAN) 8 mg tablet; Take 1 Tablet by mouth every 8 (eight) hours as needed for nausea, Disp-9 Tablet, R-3 e-Prescribing Dispense: 9 Tablet; Refill: 3 - semaglutide (OZEMPIC) 2 mg/dose (8 mg/3 mL) pen injector; Inject 2 mg into the skin once a week, Disp-3 mL, R-2 e-Prescribing, Long-term Dispense: 3 mL; Refill: 2 - COMPREHENSIVE METABOLIC PANEL; Future - BLOOD COUNT COMPLETE AUTO&AUTO DIFRNTL WBC; Future 4. Pain - pregabalin (LYRICA) 150 mg capsule; Take 1 Capsule by mouth 2 (two) times daily, Disp-60 Capsule, R-3 e-Prescribing, Long-term Dispense: 60 Capsule; Refill: 3 5. Diarrhea, unspecified type - omeprazole (PRILOSEC) [address] capsule; Take 1 Capsule by mouth every morning before breakfast, Disp-30 Capsule, R-5 e-Prescribing Dispense: 30 Capsule; Refill: 5 Depression Screening: PHQ2 Score (!) 6 at 06/06/2024 10:14 AM PHQ-9 Total Score (Auto Calculated) (!) 20 at 06/06/2024 10:14 AM Depression Severity: Severe at 06/06/2024 10:14 AM Major depression criteria of 5+ symptom and disability met? Yes at 06/06/2024 10:14 AM Plan: Depression follow up provided: Counseling / education in visit BMI Readings from Last 3 Encounters: 05/12/24 31.93 kg/m 04/24/24 33.72 kg/m 01/23/24 37.13 kg/m BMI follow up plan for 18+: The patient was counseled regarding nutrition and physical activity BMI is not an accurate reflection of [...] well-being and mood. Tobacco Use and Intervention: Tobacco History Tobacco Use Smoking Status Every Day Current packs/day: 1.00 Types: Cigarettes Smokeless Tobacco Never Tobacco Comments 10/24: none in 2mos Ready to quit: Not Answered Counseling given: Not Answered Tobacco comments: 10/24: none in 2mos Plan: Tobacco Intervention: provided smoking cessation counseling Future Appointments Date Time Provider Department Center 11/11/2024 10:30 AM [facility] Physical Exam Review of Systems Constitutional: Negative. HENT: Negative. Eyes: Negative. Respiratory: Negative. Cardiovascular: Negative. Gastrointestinal: Positive for nausea. Endocrine: Negative. Genitourinary: Negative. Allergic/Immunologic: Negative. Neurological: Negative. Hematological: Negative. Physical Exam Vitals reviewed: limited d/t tele. Constitutional: General: He is not in acute distress. Appearance: Normal appearance. He is normal weight. He is not ill-appearing. HENT: Head: Normocephalic and atraumatic. Nose: Nose normal. Pulmonary: Effort: Pulmonary effort is normal. No respiratory distress. Musculoskeletal: General: Normal range of motion. Cervical back: Normal range of motion. Neurological: General: No focal deficit present. Mental Status: He is alert and oriented to person, place, and time. Mental status is at baseline. Psychiatric: Mood and Affect: Mood normal. Behavior: Behavior normal. Associated Problem(s): Gender dysphoria Stable labs pending Images from the original note were not included. Rooming Note: Mil presents to [facility] today for No chief complaint on file. Virtual Visit Is the insurance information on file correct? Yes (no further action is needed) Since Last Visit? Been to an Urgent Care, ER or Hospital? n Seen any other providers / specialists? n Received any vaccines? n Had any tests, like a Xray, mammogram or colonoscopy? n Vaccines Recommended Today: Health Maintenance Due Topic Date Due Imm-Varicella (1 of 2 - 13+ 2-dose series) Never done Imm-Pneumococcal (1 of 2 - PCV) Never done Imm-Influenza (1) 03/02/2024 [id number] (2023- season) Never done ASQ To be completed annually on adolescents ages 18-24 No data to display SBIRT 06/06/2024 10:14 AM How many times in the past year have you had 4 or more drinks in a day? NONE How many times in the past year have you used a recreational drug or used a prescription medication for nonmedical reasons? NONE Little interest or pleasure in doing things Nearly every day Feeling down, depressed or hopeless [include irritable if under 18] Nearly every day PHQ2 Score (!) 6 Little interest or pleasure in doing things Nearly every day Feeling down, depressed or hopeless [include irritable if under 18] Nearly every day Trouble falling or staying asleep, or sleeping too much Nearly every day Feeling tired or having little energy Nearly every day Poor appetite or overeating Several days Feeling bad about yourself - or that you are a failure or have let yourself or your family down Nearly every day Trouble concentrating on things like school work, reading or watching TV? More than half the days Moving or speaking so slowly that other people could have noticed? Or the opposite - being so fidgety or restless that you have been moving around a lot more than usual More than half the days Thoughts you would be better off or of hurting yourself in some way Not at all If you checked off any problems, how difficult have these problems made it for you to do your work, take care of things at home, or get along with other people? Extremely difficult PHQ-9 Total Score (Auto Calculated) (!) 20 Depression Severity: Severe Major depression criteria of 5+ symptom and disability met? Yes AUDIT Total Score (Auto Calculated) 2 at 07/25/2022 1:59 PM PHQ-9 Total Score (Auto Calculated) (!) 20 at 06/06/2024 10:14 AM Patient is due for PHQ assessment. Please perform. Patient is due for PHQ assessment. Please perform. KULDEEP-7 04/24/2024 10:14 AM Feeling nervous, anxious, or on edge: Nearly every day Not being able to stop or control worrying: Nearly every day Worrying too much about different things: Nearly every day Trouble relaxing: Nearly every day Being so restless that it is hard to sit still: Nearly every day Becoming easily annoyed or irritable: Nearly every day Feeling afraid, as if something awful might happen: Nearly every day KULDEEP-7 Total (!) 21 Anxiety Severity: Severe Anxiety Difficulty: Extremely difficult Health Maintenance Due Topic Date Due Imm-Varicella (1 of 2 - 13+ 2-dose series) Never done Imm-Pneumococcal (1 of 2 - PCV) Never done Annual Preventive Care Visit 05/18/2021 Imm-Influenza (1) 03/02/2024 [id number] (1 - 2023- season) Never done Alcohol and Drug Screen 07/02/2024 Depression Monitoring 09/04/2024 Goals as of 09/15/2024 at 10:54 AM Diploma (pt-stated) Mil will work towards his diploma over the [...] use disorder Bipolar 2 disorder ([facility]) Gender dysphoria Attention deficit hyperactivity disorder (ADHD), predominantly inattentive type Pelvic pain History of suicide attempt S/P laparoscopic hysterectomy Obesity, Class III, BMI 40-49.9 (morbid obesity) ([facility]) Acne vulgaris Weight gain due to medication Abnormal movements Prediabetes Smoking Elevated liver enzymes Intractable migraine with status migrainosus Weakness Tele-Health Visit The patient's identity was verified at the start of the encounter. The patient and/or their guardian have given their verbal consent to this tele-health visit. This visit took place via tele-health video visit The patient's location is the patient is within [place] Additional persons on the call: no one Electromechanic used/present: No. documented in this encounter [facility] Work Phone: 08-26-2024 History of Present illness Narrative Tele-Health Visit Statement [facility] The patient's identity was verified and they have verbally stated that they are currently in the [facility]. The risks, benefits, and alternatives of a real time synchronous audiovisual consultation were discussed with the patient and/or their guardian and they have given their verbal consent to this tele-health visit. This visit took place via tele-health video visit Additional persons on the call: no one Electromechanic used/present: Not Applicable Patient location : home Provider location : Visit occurred in clinic Chief Complaint Patient presents with Follow Up Medication Management Mood Disorder Objective Mil had to cancel his f/u appt with the sleep doctor d/t sickness and has not rescheduled. Encouraged him to do so. Mood has been very snappy and depression has been pretty bad which he attributes to not sleeping, and I agree with this. Again encouraged him to reschedule with sleep doctor and explore the CBT-I program I sent him after last appt. He did finish the 2-week sleep diary. Appetite is unchanged. I do not want to adjust the dose of the Seroquel until he has met with the sleep doctor again and tried CBT-I, which seems to be the priority at this time. He has been late to work 3-4 times this month because he reportedly goes 2-3 nights per week without any sleep, and then he lies in bed until around 5 am, and then he misses the alarm that's set for 5:50, 6 am, and 6:15. No SI, nenita or psychosis. 07/15/24 f/u: Pt reports that I've been better, I'm just really tired. He has not been sleeping well at all, sometimes not sleeping at all 2-3 nights per week. He says that at most he sleeps 3 hours per night, broken up into segments. He does not take naps. He is tired all the time. He reports that he dozes off for a couple seconds here and there throughout the day. His appetite depends on the day, some days I have more appetite than others. The AH tend to resurface at night and when he hasn't slept; I get super paranoid and anxious. Describes paranoid as I think something's going to happen, I'll hear noises outside my house and check the windows. The AH is non-distinct voices, a hundred different voices. 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 He did miss a day last week and 2 the week before. He goes back to the sleep doctor 07/21 with a completed sleep diary, which he has been filling out. The sleep study from May confirmed the absence of HANNAH. The doctor gave him the sleep diary and stated that he was going to work with Mil to learn how to turn his brain off. I sent Mil a [employer] message that contains the link for the CBT-I online course through the [facility]. No SI or nenita. Psychosis only occurs at night, when anxious and only when didn't sleep the night before. 07/15/24 Plan: Encouraged pt to continue filling out sleep log and return to sleep doctor 07/21 to discuss; also sent info on online CBT-I course through [facility] and encouraged pt to look at this and discuss with sleep doctor Continue Effexor 225 mg PO qsam for depression/anxiety Continue Adderall IR 15 mg PO tid for ADHD Continue prazosin 1 mg PO qhs for PTSD-related nightmares Continue lorazepam 1 mg PO bid PRN for acute anxiety; dispensing #15 for 30-d/s Continue mirtazapine 45 mg PO qhs for depression/anxiety Continue Wellbutrin XL 150 mg PO qam for depression/ADHD Continue Seroquel 200 mg PO qhs for schizoaffective/ depressive adjunctive tx Further medication changes will depend on client report of symptoms and tolerability RTC in 6 weeks HPI Mil Toro is a 24 year old Adult here today for follow-up med management visit. Symptoms include sadness (worse since I've been stuck at home; go back next Sunday; before that was there, normal for me), decreased interest (not it; kind of been the same throughout), hopelessness, panic (handful, 4-5; 10m; out of nowhere talk to random somebody that I know), difficulty concentrating (yeah), increased fatigue (worse last couple weeks) and sleep disturbance (since surgery maybe an hour or two a night sleeping on my couch very uncomfortable, have to sleep in recliner; 1-2h; napping trying to avoid it; not restorative). Patient denies or there is no evidence of low self-esteem, guilt, nervousness/anxiousness (not too bad), inflated self-esteem, decreased need for sleep, euphoric mood, hallucinations, irritability, appetite change, suicidal ideas or homicidal ideas. Weight change: h/o disordered eating does weigh self. Onset of these symptoms was more than 1 year ago. Patient's report of symptoms since onset: unchanged. Symptoms occur constantly. The severity of symptoms is moderate. : 50h/w. Past treatments tried include: Medication therapy, which was effective. Psychotherapy treatment, which was effective (Kelly at [facility] see her next week). . Compliance with prior treatments has been good. Last KULDEEP-7 KULDEEP-7 Total (!) 21 at 04/24/2024 10:14 AM Last PHQ-9 PHQ-9 Total Score (Auto Calculated) (!) 20 at 06/06/2024 10:14 AM HIV Care No results found for: CD4, COPIESML, HELPSUPP If client is HIV+, provider reviewed HIV care, Viral Load, and CD4: Not applicable AIMS 08/26/2024 10:00 AM 1. Muscles of facial expression none [...] 05/31/2020 4.3 uU/mL WBC (x10E3/uL) Date Value 04/24/2024 7.0 01/23/2024 6.4 RBC (x10E6/uL) Date Value 04/24/2024 5.32 (H) 01/23/2024 5.65 (H) HGBA1C (%) Date Value 04/24/2024 5.3 07/27/2023 5.9 (H) HGB (g/dL) Date Value 04/24/2024 14.9 01/23/2024 15.9 HCT (%) Date Value 04/24/2024 47.5 (H) 01/23/2024 48.4 (H) CHOL (mg/dL) Date Value 04/24/2024 138 08/08/2023 168 TRIGLYC (mg/dL) Date Value 04/24/2024 96 08/08/2023 146 HDL (mg/dL) Date Value 04/24/2024 37 (L) 08/08/2023 44 LDL (mg/dL) Date Value 04/24/2024 83 08/08/2023 98 VLDL (mg/dL) Date Value 04/24/2024 18 08/08/2023 26 GLUCOSE (mg/dL) Date Value 04/24/2024 79 01/23/2024 90 BUN (mg/dL) Date Value 04/24/2024 11 01/23/2024 7 CREATININE (mg/dL) Date Value 04/24/2024 1.00 01/23/2024 1.07 (H) EGFR (mL/min/1.73) Date Value 04/24/2024 80 01/23/2024 74 05/31/2020 111 05/31/2020 128 AST (IU/L) Date Value 04/24/2024 16 01/23/2024 20 ALT (IU/L) Date Value 04/24/2024 16 01/23/2024 19 BILIRUBIN (mg/dL) Date Value 04/24/2024 0.3 01/23/2024 0.3 No results found for: URAMPHETQL, URCOCAINEQL, URTHCQL, UROPIATEQL, URETOHQL, URBUPRENQL, URBENZOQL, URMETHDQL Review of Systems Constitutional: Negative for appetite change. Cardiovascular: Positive for chest pain (per pt - sent message to PCP) and palpitations (per pt - sent message to PCP). Just with anxiety attacks; H/o the same PCP aware per him Gastrointestinal: Negative. Neurological: Negative for seizures. PD: denies noticing by either self or others (prev states shoulders; kind of like a tic; off and on; not new had that for a few years no change) Psychiatric/Behavioral: Positive for sleep disturbance (since surgery maybe an hour or two a night sleeping on my couch very uncomfortable, have to sleep in recliner; 1-2h; napping trying to avoid it; not restorative). Negative for hallucinations, homicidal ideas and suicidal ideas. The patient is not nervous/anxious (not too bad). Mental Status Exam Appearance is appropriate for circumstance. General Health is generally good. Eye Contact is good. Motor Activity is unremarkable. Speech is monotone. Affect is blunted (baseline). slight Reported Mood is indifferentDepressed: less so than prior to starting Efffexor but still persistent. Anxious: less anxious.. pretty good Thought Content is unremarkable. Thought Process is goal-directed and is linear. Perception is unremarkable. Attention is alert. Demeanor is appropriate for situation. Insight is appropriate. Judgement is appropriate. Orientation is fully oriented. Memory is grossly intact and not formally tested. Narrative: Reviewed OARRS report 08/25/2024 which reveals Adderall IR 15 mg #90 last filled and lorazepam 1 mg #15 last filled 07/15/24 Total visit time today, including time spent reviewing chart and/or consulting prior to or after appointment was 22 minutes. Greater than 50% of this time was spent providing counseling and care coordination around chief complaint, including any additional diagnoses listed above. Shared-decision making was made with consideration for patient specific factors. All patient's questions were answered and patient verbally confirms and understands plan of care. Diagnosis: 1. Schizoaffective disorder, bipolar type ([facility]) - venlafaxine XR (EFFEXOR XR) 75 mg 24 hr capsule; Take 1 Capsule by mouth once daily with breakfast along with 150 mg, for a total daily dose of 225 mg Dispense: 30 Capsule; Refill: 1 - venlafaxine XR (EFFEXOR XR) 150 mg 24 hr capsule; Take 1 Capsule by mouth once daily with breakfast along with 75 mg, for a total daily dose of 225 mg Dispense: 30 Capsule; Refill: 1 - mirtazapine (REMERON) 45 mg tablet; Take 1 Tablet by mouth nightly at bedtime Dispense: 30 Tablet; Refill: 1 - buPROPion XL (WELLBUTRIN XL) 150 mg 24 hr tablet; Take 1 Tablet by mouth daily. Dispense: 30 Tablet; Refill: 1 2. PTSD (post-traumatic stress disorder) - venlafaxine XR (EFFEXOR XR) 75 mg 24 hr capsule; Take 1 Capsule by mouth once daily with breakfast along with 150 mg, for a total daily dose of 225 mg Dispense: 30 Capsule; Refill: 1 - venlafaxine XR (EFFEXOR XR) 150 mg 24 hr capsule; Take 1 Capsule by mouth once daily with breakfast along with 75 mg, for a total daily dose of 225 mg Dispense: 30 Capsule; Refill: 1 - prazosin (MINIPRESS) 1 mg capsule; Take 1 Capsule by mouth nightly at bedtime Dispense: 30 Capsule; Refill: 1 - mirtazapine (REMERON) 45 mg tablet; Take 1 Tablet by mouth nightly at bedtime Dispense: 30 Tablet; Refill: 1 - buPROPion XL (WELLBUTRIN XL) 150 mg 24 hr tablet; Take 1 Tablet by mouth daily. Dispense: 30 Tablet; Refill: 1 3. Generalized anxiety disorder - venlafaxine XR (EFFEXOR XR) 75 mg 24 hr capsule; Take 1 Capsule by mouth once daily with breakfast along with 150 mg, for a total daily dose of 225 mg Dispense: 30 Capsule; Refill: 1 - venlafaxine XR (EFFEXOR XR) 150 mg 24 hr capsule; Take 1 Capsule by mouth once daily with breakfast along with 75 mg, for a total daily dose of 225 mg Dispense: 30 Capsule; Refill: 1 - mirtazapine (REMERON) 45 mg tablet; Take 1 Tablet by mouth nightly at bedtime Dispense: 30 Tablet; Refill: 1 - LORazepam (ATIVAN) 1 mg tablet; Take 1 Tablet by mouth 2 (two) times daily as needed for anxiety Dispense: 15 Tablet; Refill: 2 4. Insomnia disorder, persistent, with mental disorder 5. Attention deficit hyperactivity disorder (ADHD), predominantly inattentive type - dextroamphetamine-amphetamine (ADDERALL) 15 mg tablet; Take 1 Tablet by mouth 3 (three) times daily for 30 days Dispense: 90 Tablet; Refill: 0 - buPROPion XL (WELLBUTRIN XL) 150 mg 24 hr tablet; Take 1 Tablet by mouth daily. Dispense: 30 Tablet; Refill: 1 - dextroamphetamine-amphetamine (ADDERALL) 15 mg tablet; Take 1 Tablet by mouth 3 (three) times daily for 30 days Dispense: 90 Tablet; Refill: 0 - dextroamphetamine-amphetamine (ADDERALL) 15 mg tablet; Take 1 Tablet by mouth 3 (three) times daily for 30 days Dispense: 90 Tablet; Refill: 0 Plan: Encouraged pt to start the CBT-I program using the link I sent him and reschedule with sleep doctor Darwin Effexor 225 mg PO qsam for depression/anxiety Continue Adderall IR 15 mg PO tid for ADHD Continue prazosin 1 mg PO qhs for PTSD-related nightmares Continue lorazepam 1 mg PO bid PRN for acute anxiety; dispensing #15 for 30-d/s Continue mirtazapine 45 mg PO qhs for depression/anxiety Continue Wellbutrin XL 150 mg PO qam for depression/ADHD Continue Seroquel 200 mg PO qhs for schizoaffective/ depressive adjunctive tx Further medication changes will depend on client report of symptoms and tolerability RTC in 12 weeks Explained rationale for medication choices and discussed possible risks, benefits and alternative treatment with client (parent/guardian)? [x] Yes [] No Client/Guardian Response: [x] Understands Information [] Does Not Understand [x] Agrees with Medication [] Refuses Medication documented in this encounter [employer] Work Phone: 07-15-2024 History of Present illness Narrative Tele-Health Visit Statement [employer] The patient's identity was verified and they have verbally stated that they are currently in the state [facility]. The risks, benefits, and alternatives of a real time synchronous audiovisual consultation were discussed with the patient and/or their guardian and they have given their verbal consent to this tele-health visit. This visit took place via tele-health video visit Additional persons on the call: no one Electromechanic used/present: Not Applicable Patient location : home Provider location : Visit occurred in clinic Chief Complaint Patient presents with Mood Disorder Follow Up Medication Management Objective Pt reports that I've been better, I'm just really tired. He has not been sleeping well at all, sometimes not sleeping at all 2-3 nights per week. He says that at most he sleeps 3 hours per night, broken up into segments. He does not take naps. He is tired all the time. He reports that he dozes off for a couple seconds here and there throughout the day. His appetite depends on the day, some days I have more appetite than others. The AH tend to resurface at night and when he hasn't slept; I get super paranoid and anxious. Describes paranoid as I think something's going to happen, I'll hear noises outside my house and check the windows. The AH is non-distinct voices, a hundred different voices. 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 He did miss a day last week and 2 the week before. He goes back to the sleep doctor 07/21 with a completed sleep diary, which he has been filling out. The sleep study from May confirmed the absence of HANNAH. The doctor gave him the sleep diary and stated that he was going to work with Mil to learn how to turn his brain off. I sent Mil a [employer] message that contains the link for the CBT-I online course through the [employer]. No SI or nenita. Psychosis only occurs at night, when anxious and only when didn't sleep the night before. 06/09/24 f/u: Pt reports that I've been all right, I feel like my depression and anxiety have been really bad. He had the at home sleep study 05/26 and has an appt with them on 06/12 to discuss the results. Denies SI, but endorses feeling down, stating that work hasn't been the best in general. He has been there for a little over 5 years. He had to have someone work for him 2 weekends ago, but not for mental health reasons; he states that he was too weak to do anything. He reports that this general weakness and overall body pain has gotten worse. He did have a spinal MRI a few weeks ago but is not sure of the results. His appetite remains poor, but this is not new for him: I've always been like that and eaten just one meal a day. The specialist told him that they felt he was malnourished but he has not developed a more steady, healthy eating schedule. Sleep has remained terrible - he reports that the doctor at the sleep clinic sent him home with a chart to complete and track his sleeping habits until his appt next week. The lorazepam is better than nothing but he still struggles with lots of acute anxiety, especially at work. Advised that if his sleep can improve through working with the sleep doctor, and if he is able to make sure he gets nutrients throughout the day, it's more likely that his anxiety will be well controlled. No significant issues with nightmares. With changing the Adderall from XR 30 to IR 15 mg tid, he notices a bit of an improvement in his executive functioning in the mornings, but he has not noticed much past that. He reports that he jeff snot eat in the morning or afternoon; again discussed the need to have sufficient nutrients in his sytem in order for the ADHD medications to work, and also in order for him to have sufficient mental and physical energy. No psychosis or nenita. 06/09/24 Plan: Increase Effexor XR to 225 mg PO qam for depression/anxiety Continue Adderall IR 15 mg PO tid for ADHD (pt reports only getting benefit from first dose, but he is not eating or getting any nutrients until dinner - advised him that he needs to intake some calories, preferably protein, and a protein shake would be a great way to accomplish this, as this will help the Adderall work as well as provide him wContinue prazosin 1 mg PO qhs for PTSD-related nightmaresith more mental and physical energy) Continue prazosin 1 mg PO qhs for PTSD-related nightmares Continue lorazepam 1 mg PO bid PRN for acute anxiety; dispensing #15 for 30-d/s Continue mirtazapine 45 mg PO qhs for depression/anxiety Continue Wellbutrin XL 150 mg PO qam for depression/ADHD Continue Seroquel 200 mg PO qhs for schizoaffective/ depressive adjunctive tx Sent message giving pt my fax number and asking him to have sleep clinic fax sleep study results to me, unless he is able to upload them directly through [employer] Further medication changes will depend on client report of symptoms and tolerability RTC in 4 weeks HPI Mil Toro is a 24 year old Adult here today for follow-up med management visit. Symptoms include sadness (worse since I've been stuck at home; go back next Sunday; before that was there, normal for me), decreased interest (not it; kind of been the same throughout), hopelessness, panic (handful, 4-5; 10m; out of nowhere talk to random somebody that I know), difficulty concentrating (yeah), increased fatigue (worse last couple weeks) and sleep disturbance (since surgery maybe an hour or two a night sleeping on my couch very uncomfortable, have to sleep in recliner; 1-2h; napping trying to avoid it; not restorative). Patient denies or there is no evidence of low self-esteem, guilt, nervousness/anxiousness (not too bad), inflated self-esteem, decreased need for sleep, euphoric mood, hallucinations, irritability, appetite change, suicidal ideas or homicidal ideas. Weight change: h/o disordered eating does weigh self. Onset of these symptoms was more than 1 year ago. Patient's report of symptoms since onset: unchanged. Symptoms occur constantly. The severity of symptoms is moderate. : 50h/w. Past treatments tried include: Medication therapy, which was effective. Psychotherapy treatment, which was effective (Kelly at [facility] see her next week). . Compliance with prior treatments has been good. Last KULDEEP-7 KULDEEP-7 Total (!) 21 at 04/24/2024 10:14 AM Last PHQ-9 PHQ-9 Total Score (Auto Calculated) (!) 20 at 06/06/2024 10:14 AM HIV Care No results found for: CD4, COPIESML, HELPSUPP If client is HIV+, provider reviewed HIV care, Viral Load, and CD4: Not applicable AIMS 07/15/2024 10:00 AM 1. Muscles of facial expression none [...] 05/31/2020 4.3 uU/mL WBC (x10E3/uL) Date Value 04/24/2024 7.0 01/23/2024 6.4 RBC (x10E6/uL) Date Value 04/24/2024 5.32 (H) 01/23/2024 5.65 (H) HGBA1C (%) Date Value 04/24/2024 5.3 07/27/2023 5.9 (H) HGB (g/dL) Date Value 04/24/2024 14.9 01/23/2024 15.9 HCT (%) Date Value 04/24/2024 47.5 (H) 01/23/2024 48.4 (H) CHOL (mg/dL) Date Value 04/24/2024 138 08/08/2023 168 TRIGLYC (mg/dL) Date Value 04/24/2024 96 08/08/2023 146 HDL (mg/dL) Date Value 04/24/2024 37 (L) 08/08/2023 44 LDL (mg/dL) Date Value 04/24/2024 83 08/08/2023 98 VLDL (mg/dL) Date Value 04/24/2024 18 08/08/2023 26 GLUCOSE (mg/dL) Date Value 04/24/2024 79 01/23/2024 90 BUN (mg/dL) Date Value 04/24/2024 11 01/23/2024 7 CREATININE (mg/dL) Date Value 04/24/2024 1.00 01/23/2024 1.07 (H) EGFR (mL/min/1.73) Date Value 04/24/2024 80 01/23/2024 74 05/31/2020 111 05/31/2020 128 AST (IU/L) Date Value 04/24/2024 16 01/23/2024 20 ALT (IU/L) Date Value 04/24/2024 16 01/23/2024 19 BILIRUBIN (mg/dL) Date Value 04/24/2024 0.3 01/23/2024 0.3 No results found for: URAMPHETQL, URCOCAINEQL, URTHCQL, UROPIATEQL, URETOHQL, URBUPRENQL, URBENZOQL, URMETHDQL Review of Systems Constitutional: Negative for appetite change. Cardiovascular: Positive for chest pain (per pt - sent message to PCP) and palpitations (per pt - sent message to PCP). Just with anxiety attacks; H/o the same PCP aware per him Gastrointestinal: Negative. Neurological: Negative for seizures. PD: denies noticing by either self or others (prev states shoulders; kind of like a tic; off and on; not new had that for a few years no change) Psychiatric/Behavioral: Positive for sleep disturbance (since surgery maybe an hour or two a night sleeping on my couch very uncomfortable, have to sleep in recliner; 1-2h; napping trying to avoid it; not restorative). Negative for hallucinations, homicidal ideas and suicidal ideas. The patient is not nervous/anxious (not too bad). Mental Status Exam Appearance is appropriate for circumstance. General Health is generally good. Eye Contact is good. Motor Activity is unremarkable. Speech is monotone. Affect is blunted (baseline). slight Reported Mood is depressed (less so than prior to starting Efffexor but still persistent)Anxious: less anxious.. pretty good Thought Content is unremarkable. Thought Process is goal-directed and is linear. Perception is unremarkable. Attention is alert. Demeanor is appropriate for situation. Insight is appropriate. Judgement is appropriate. Orientation is fully oriented. Memory is grossly intact and not formally tested. Narrative: Reviewed OARRS report 07/14/2024 which reveals Adderall IR 15 mg #90 last filled 07/02/24. Total visit time today, including time spent reviewing chart and/or consulting prior to or after appointment was 25 minutes. Greater than 50% of this time was spent providing counseling and care coordination around chief complaint, including any additional diagnoses listed above. Shared-decision making was made with consideration for patient specific factors. All patient's questions were answered and patient verbally confirms and understands plan of care. Diagnosis: 1. Schizoaffective disorder, bipolar type ([facility]) - venlafaxine XR (EFFEXOR XR) 75 mg 24 hr capsule; Take 1 Capsule by mouth once daily with breakfast along with 150 mg, for a total daily dose of 225 mg Dispense: 30 Capsule; Refill: 1 - venlafaxine XR (EFFEXOR XR) 150 mg 24 hr capsule; Take 1 Capsule by mouth once daily with breakfast along with 75 mg, for a total daily dose of 225 mg Dispense: 30 Capsule; Refill: 1 - QUEtiapine (SEROQUEL) 300 mg tablet; Take 1 Tablet by mouth nightly at bedtime Dispense: 30 Tablet; Refill: 1 - mirtazapine (REMERON) 45 mg tablet; Take 1 Tablet by mouth nightly at bedtime Dispense: 30 Tablet; Refill: 1 - buPROPion XL (WELLBUTRIN XL) 150 mg 24 hr tablet; Take 1 Tablet by mouth daily. Dispense: 30 Tablet; Refill: 1 2. Attention deficit hyperactivity disorder (ADHD), predominantly inattentive type - dextroamphetamine-amphetamine (ADDERALL) 15 mg tablet; Take 1 Tablet by mouth 3 (three) times daily for 30 days Dispense: 90 Tablet; Refill: 0 - buPROPion XL (WELLBUTRIN XL) 150 mg 24 hr tablet; Take 1 Tablet by mouth daily. Dispense: 30 Tablet; Refill: 1 3. PTSD (post-traumatic stress disorder) - venlafaxine XR (EFFEXOR XR) 75 mg 24 hr capsule; Take 1 Capsule by mouth once daily with breakfast along with 150 mg, for a total daily dose of 225 mg Dispense: 30 Capsule; Refill: 1 - venlafaxine XR (EFFEXOR XR) 150 mg 24 hr capsule; Take 1 Capsule by mouth once daily with breakfast along with 75 mg, for a total daily dose of 225 mg Dispense: 30 Capsule; Refill: 1 - QUEtiapine (SEROQUEL) 300 mg tablet; Take 1 Tablet by mouth nightly at bedtime Dispense: 30 Tablet; Refill: 1 - prazosin (MINIPRESS) 1 mg capsule; Take 1 Capsule by mouth nightly at bedtime Dispense: 30 Capsule; Refill: 1 - mirtazapine (REMERON) 45 mg tablet; Take 1 Tablet by mouth nightly at bedtime Dispense: 30 Tablet; Refill: 1 - buPROPion XL (WELLBUTRIN XL) 150 mg 24 hr tablet; Take 1 Tablet by mouth daily. Dispense: 30 Tablet; Refill: 1 4. Generalized anxiety disorder - venlafaxine XR (EFFEXOR XR) 75 mg 24 hr capsule; Take 1 Capsule by mouth once daily with breakfast along with 150 mg, for a total daily dose of 225 mg Dispense: 30 Capsule; Refill: 1 - venlafaxine XR (EFFEXOR XR) 150 mg 24 hr capsule; Take 1 Capsule by mouth once daily with breakfast along with 75 mg, for a total daily dose of 225 mg Dispense: 30 Capsule; Refill: 1 - QUEtiapine (SEROQUEL) 300 mg tablet; Take 1 Tablet by mouth nightly at bedtime Dispense: 30 Tablet; Refill: 1 - mirtazapine (REMERON) 45 mg tablet; Take 1 Tablet by mouth nightly at bedtime Dispense: 30 Tablet; Refill: 1 - LORazepam (ATIVAN) 1 mg tablet; Take 1 Tablet by mouth 2 (two) times daily as needed for anxiety Dispense: 15 Tablet; Refill: 0 5. Insomnia disorder, persistent, with mental disorder - QUEtiapine (SEROQUEL) 300 mg tablet; Take 1 Tablet by mouth nightly at bedtime Dispense: 30 Tablet; Refill: 1 Plan: Encouraged pt to continue filling out sleep log and return to sleep doctor 07/21 to discuss; also sent info on online CBT-I course through [employer] and encouraged pt to look at this and discuss with sleep doctor Continue Effexor 225 mg PO qsam for depression/anxiety Continue Adderall IR 15 mg PO tid for ADHD Continue prazosin 1 mg PO qhs for PTSD-related nightmares Continue lorazepam 1 mg PO bid PRN for acute anxiety; dispensing #15 for 30-d/s Continue mirtazapine 45 mg PO qhs for depression/anxiety Continue Wellbutrin XL 150 mg PO qam for depression/ADHD Continue Seroquel 200 mg PO qhs for schizoaffective/ depressive adjunctive tx Further medication changes will depend on client report of symptoms and tolerability RTC in 6 weeks Explained rationale for medication choices and discussed possible risks, benefits and alternative treatment with client (parent/guardian)? [x] Yes [] No Client/Guardian Response: [x] Understands Information [] Does Not Understand [] Agrees with Medication [] Refuses Medication documented in this encounter [facility] Phone: 06-10-2024 History of Present illness Narrative Chief Complaint / HPI: Chief Complaint Patient presents with Prescription Refill Request Ozempic HPI Problems Assessed, Plan, Orders & Medical Decision Making 1. Weight gain due to medication (Primary) Overview: Patient started in metformin in June and reports he has not lost any weight yet. Has also tried to continue to lower calories- cut out soda and is trying to eat better. Has been taking the metformin but does miss morning doses at times. 01/23/24 10/21/23 was at 288# pt is now at 244#. Pt is taking ozempic and topamax and feels that he is doing well on these medications. Pt would like to get to 200. 06/10/24 Pt states that he is doing well on the ozempic and would like refills Orders: - semaglutide (OZEMPIC) 1 mg/dose (4 mg/3 mL) pen injector; Inject 1 mg into the skin once a week, Disp-3 mL, R-3Please educate on proper storage. Store refrigerated 36F-46F before first use. May store at room temperature 59F-86F for up to 56 days. Do not freeze. e-Prescribing, Long-term Dispense: 3 mL; Refill: 3 2. Prediabetes Overview: Patient taking metformin, no [...] 30lbs. He also struggles with daily diarrhea Orders: - semaglutide (OZEMPIC) 1 mg/dose (4 mg/3 mL) pen injector; Inject 1 mg into the skin once a week, Disp-3 mL, R-3Please educate on proper storage. Store refrigerated 36F-46F before first use. May store at room temperature 59F-86F for up to 56 days. Do not freeze. e-Prescribing, Long-term Dispense: 3 mL; Refill: 3 3. Pain - pregabalin (LYRICA) 150 mg capsule; Take 1 Capsule by mouth 2 (two) times daily, Disp-60 Capsule, R-3 e-Prescribing, Long-term Dispense: 60 Capsule; Refill: 3 4. Weakness Overview: Pt states that he met with neuro and had labs done. He has an MRI of the spine ordered. He states that he is having increased weakness and wide spread pain. He states that he has even collapsed in weakness and pain. He states that once he collapsed he couldn't get up for a while. He states that he has been drinking water. He states that he wasn't eating the best. He states that he has been making an attempt to eat more. Neuro thinks that he is mal nourished. Pt states that he has not changed his eating habits. He has always eaten once a day. There have been a few time where he hasn't been able to do that. He has lost 10lbs since the last time I saw him. 05/22/24 Pt states that he called the rheum office and they told him they didn't get the referral we will reach out to our global mobility specialist to see what is going on. Pt states that the weakness and pain is worsening. He states that he struggles to do anything. He states that he has a deep sharp aching pain. He states that nothing makes it better or worse and that he wakes up in pain. He states that the upper back and his legs are the worst for the pain. Pt states that he was on a high dose of gabapentin after his top surgery. Pt states that he has never taken lyrica. He states that the gabapentin really didn't help much. 06/10/24 Pt states that the lyrica helps a little with the pins and needles. I would like to increase this dose. He and I reviewed his MRI which was fairly unremarkable and not explaining his symptoms. Depression Screening: PHQ2 Score (!) 6 at 06/06/2024 10:14 AM PHQ-9 Total Score (Auto Calculated) (!) 20 at 06/06/2024 10:14 AM Depression Severity: Severe at 06/06/2024 10:14 AM Major depression criteria of 5+ symptom and disability met? Yes at 06/06/2024 10:14 AM Plan: Depression follow up provided: Counseling / education in visit BMI Readings from Last 3 Encounters: 05/12/24 31.93 kg/m 04/24/24 33.72 kg/m 01/23/24 37.13 kg/m BMI follow up plan for 18+: The patient was counseled regarding nutrition and physical activity BMI is not an accurate reflection of [...] well-being and mood. Tobacco Use and Intervention: Tobacco History Tobacco Use Smoking Status Every Day Current packs/day: 1.00 Types: Cigarettes Smokeless Tobacco Never Tobacco Comments 10/24: none in 2mos Ready to quit: Not Answered Counseling given: Not Answered Tobacco comments: 10/24: none in 2mos Plan: Tobacco Intervention: provided smoking cessation counseling Future Appointments Date Time Provider Department Center 07/15/2024 10:00 AM Ajit Paulino APRN [facility] ROS & Physical Exam Review of Systems Constitutional: Negative. HENT: Negative. Eyes: Negative. Respiratory: Negative. Cardiovascular: Negative. Breasts: Negative. Gastrointestinal: Negative. Endocrine: Negative. Genitourinary: Negative. Musculoskeletal: Negative. Skin: Negative. Allergic/Immunologic: Negative. Neurological: Negative. Hematological: Negative. Psychiatric/Behavioral: Negative. Physical Exam Vitals (limited d/t tele) and nursing note reviewed. Constitutional: General: He is not in acute distress. Appearance: Normal appearance. He is well-developed. He is not ill-appearing. HENT: Head: Normocephalic and atraumatic. Not macrocephalic. Nose: Nose normal. Mouth/Throat: Pharynx: Uvula midline. No oropharyngeal exudate. Eyes: General: Lids are normal. Right eye: No discharge. Left eye: No discharge. Conjunctiva/sclera: Conjunctivae normal. Pupils: Pupils are equal, round, and reactive to light. Neck: Trachea: Trachea normal. No tracheal deviation. Cardiovascular: Rate and Rhythm: Normal rate and regular rhythm. Chest Wall: PMI is not displaced. Pulses: Normal pulses. Heart sounds: Normal heart sounds. No murmur heard. No friction rub. No gallop. Pulmonary: Effort: Pulmonary effort is normal. No accessory muscle usage or respiratory distress. Breath sounds: Normal breath sounds. No decreased breath sounds. Abdominal: Palpations: There is no hepatomegaly or splenomegaly. Musculoskeletal: General: No tenderness or deformity. Normal range of motion. Cervical back: Full passive range of motion without pain, normal range of motion and neck supple. No edema. Normal range of motion. Skin: General: Skin is warm and dry. Coloration: Skin is not pale. Findings: No abrasion, erythema or rash. Neurological: General: No focal deficit present. Mental Status: He is alert and oriented to person, place, and time. Motor: No tremor, atrophy, abnormal muscle tone or seizure activity. Gait: Gait normal. Psychiatric: Mood and Affect: Mood normal. Speech: Speech normal. Behavior: Behavior normal. Behavior is cooperative. Images from the original note were not included. Rooming Note: Mil presents to [facility] today for No chief complaint on file. Since Last Visit? Been to an Urgent Care, ER or Hospital? n Seen any other providers / specialists? n Received any vaccines? n Had any tests, like a Xray, mammogram or colonoscopy? MRI Vaccines Recommended Today: Health Maintenance Due Topic Date Due Imm-Pneumococcal (1 of 2 - PCV) Never done Imm-Varicella (1 of 2 - 13+ 2-dose series) Never done Imm-Influenza (1) 03/02/2024 [id number] (2023- season) Never done ASQ To be completed annually on adolescents ages 18-24 No data to display SBIRT 06/06/2024 10:14 AM How many times in the past year have you had 4 or more drinks in a day? NONE How many times in the past year have you used a recreational drug or used a prescription medication for nonmedical reasons? NONE Little interest or pleasure in doing things Nearly every day Feeling down, depressed or hopeless [include irritable if under 18] Nearly every day PHQ2 Score (!) 6 Little interest or pleasure in doing things Nearly every day Feeling down, depressed or hopeless [include irritable if under 18] Nearly every day Trouble falling or staying asleep, or sleeping too much Nearly every day Feeling tired or having little energy Nearly every day Poor appetite or overeating Several days Feeling bad about yourself - or that you are a failure or have let yourself or your family down Nearly every day Trouble concentrating on things like school work, reading or watching TV? More than half the days Moving or speaking so slowly that other people could have noticed? Or the opposite - being so fidgety or restless that you have been moving around a lot more than usual More than half the days Thoughts you would be better off or of hurting yourself in some way Not at all If you checked off any problems, how difficult have these problems made it for you to do your work, take care of things at home, or get along with other people? Extremely difficult PHQ-9 Total Score (Auto Calculated) (!) 20 Depression Severity: Severe Major depression criteria of 5+ symptom and disability met? Yes AUDIT Total Score (Auto Calculated) 2 at 07/25/2022 1:59 PM PHQ-9 Total Score (Auto Calculated) (!) 20 at 06/06/2024 10:14 AM KULDEEP-7 04/24/2024 10:14 AM Feeling nervous, anxious, or on edge: Nearly every day Not being able to stop or control worrying: Nearly every day Worrying too much about different things: Nearly every day Trouble relaxing: Nearly every day Being so restless that it is hard to sit still: Nearly every day Becoming easily annoyed or irritable: Nearly every day Feeling afraid, as if something awful might happen: Nearly every day KULDEEP-7 Total (!) 21 Anxiety Severity: Severe Anxiety Difficulty: Extremely difficult Health Maintenance Due Topic Date Due Advanced Care Planning Never done Imm-Pneumococcal (1 of 2 - PCV) Never done Imm-Varicella (1 of 2 - 13+ 2-dose series) Never done Annual Preventive Care Visit 05/18/2021 Imm-Influenza (1) 03/02/2024 [id number] ( - 2023-25 season) Never done Goals as of 06/10/2024 at 9:30 AM Diploma (pt-stated) Mil will work towards his diploma over the [...] use disorder Bipolar 2 disorder ([facility]) Gender dysphoria Attention deficit hyperactivity disorder (ADHD), predominantly inattentive type Pelvic pain History of suicide attempt S/P laparoscopic hysterectomy Obesity, Class III, BMI 40-49.9 (morbid obesity) ([facility]) Acne vulgaris Weight gain due to medication Abnormal movements Prediabetes Smoking Elevated liver enzymes Intractable migraine with status migrainosus Weakness Tele-Health Visit The patient's identity was verified at the start of the encounter. The patient and/or their guardian have given their verbal consent to this tele-health visit. This visit took place via tele-health video visit The patient's location is the patient is within [place] Additional persons on the call: no one Electromechanic used/present: No. documented in this encounter [facility] Work Phone: 06-09-2024 History of Present illness Narrative Tele-Health Visit Statement [facility] The patient's identity was verified and they have verbally stated that they are currently in the [facility]. The risks, benefits, and alternatives of a real time synchronous audiovisual consultation were discussed with the patient and/or their guardian and they have given their verbal consent to this tele-health visit. This visit took place via tele-health video visit Additional persons on the call: no one Electromechanic used/present: Not Applicable Patient location : home Provider location : Visit occurred in clinic Chief Complaint Patient presents with Follow Up Medication Management Depression Anxiety Attention Deficit Objective Pt reports that I've been all right, I feel like my depression and anxiety have been really bad. He had the at home sleep study 05/26 and has an appt with them on 06/12 to discuss the results. Denies SI, but endorses feeling down, stating that work hasn't been the best in general. He has been there for a little over 5 years. He had to have someone work for him 2 weekends ago, but not for mental health reasons; he states that he was too weak to do anything. He reports that this general weakness and overall body pain has gotten worse. He did have a spinal MRI a few weeks ago but is not sure of the results. His appetite remains poor, but this is not new for him: I've always been like that and eaten just one meal a day. The specialist told him that they felt he was malnourished but he has not developed a more steady, healthy eating schedule. Sleep has remained terrible - he reports that the doctor at the sleep clinic sent him home with a chart to complete and track his sleeping habits until his appt next week. The lorazepam is better than nothing but he still struggles with lots of acute anxiety, especially at work. Advised that if his sleep can improve through working with the sleep doctor, and if he is able to make sure he gets nutrients throughout the day, it's more likely that his anxiety will be well controlled. No significant issues with nightmares. With changing the Adderall from XR 30 to IR 15 mg tid, he notices a bit of an improvement in his executive functioning in the mornings, but he has not noticed much past that. He reports that he jeff snot eat in the morning or afternoon; again discussed the need to have sufficient nutrients in his sytem in order for the ADHD medications to work, and also in order for him to have sufficient mental and physical energy. No psychosis or nenita. 1 07/13/23 f/u: Pt reports that he never heard back from the sleep doctor at [facility] (who had told him that he was going to do a peer to peer with the insurance company to get the sleep study approved) - pt says he rec'd a notice from his insurance company stating that the sleep study was denied for lack of medical necessity. This is absurd, as pt has extreme difficulty sleeping, never feels rested, and is very tired during the day. As I was the ordering provider, and the insurance never notified me of any denial, I am not sure how to proceed. Will ask my colleagues for guidance and may ask referral team to contact insurance to get reason for denial so that I can appeal it. 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 Sees [facility] now for therapy, going every other week. No SI, nenita or psychosis. 1 07/13/23 Plan: Switch Adderall to all IR, 15 mg PO tid for ADHD. Pt gets benefit from the IR booster dose but not the equivalent XR dose Continue Effexor 187.5 mg PO qam for depression/anxiety Continue prazosin 1 mg PO qhs for PTSD-related nightmares Continue lorazepam 1 mg PO qd PRN for acute anxiety Continue mirtazapine 45 mg PO qhs for depression/anxiety Continue Wellbutrin XL 150 mg PO qam for depression/ADHD Continue Seroquel 200 mg PO qhs for schizoaffective/ depressive adjunctive tx Sent msg to triage nurse, asking her to call insurance and find out why they are denying the sleep study, as it is needed Further medication changes will depend on client report of symptoms and tolerability RTC in 4 weeks HPI Mil Toro is a 24 year old Adult here today for follow-up med management visit. Symptoms include sadness (worse since I've been stuck at home; go back next Sunday; before that was there, normal for me), decreased interest (not it; kind of been the same throughout), hopelessness, panic (handful, 4-5; 10m; out of nowhere talk to random somebody that I know), difficulty concentrating (yeah), increased fatigue (worse last couple weeks) and sleep disturbance (since surgery maybe an hour or two a night sleeping on my couch very uncomfortable, have to sleep in recliner; 1-2h; napping trying to avoid it; not restorative). Patient denies or there is no evidence of low self-esteem, guilt, nervousness/anxiousness (not too bad), inflated self-esteem, decreased need for sleep, euphoric mood, hallucinations, irritability, appetite change, suicidal ideas or homicidal ideas. Weight change: h/o disordered eating does weigh self. Onset of these symptoms was more than 1 year ago. Patient's report of symptoms since onset: unchanged. Symptoms occur constantly. The severity of symptoms is moderate. : 50h/w. Past treatments tried include: Medication therapy, which was effective. Psychotherapy treatment, which was effective ([facility] see her next week). . Compliance with prior treatments has been good. Last KULDEEP-7 KULDEEP-7 Total (!) 21 at 04/24/2024 10:14 AM Last PHQ-9 PHQ-9 Total Score (Auto Calculated) (!) 20 at 06/06/2024 10:14 AM HIV Care No results found for: CD4, COPIESML, HELPSUPP If client is HIV+, provider reviewed HIV care, Viral Load, and CD4: Not applicable AIMS 06/09/2024 2:00 PM 1. Muscles of facial expression none 2. [...] 05/31/2020 4.3 uU/mL WBC (x10E3/uL) Date Value 04/24/2024 7.0 01/23/2024 6.4 RBC (x10E6/uL) Date Value 04/24/2024 5.32 (H) 01/23/2024 5.65 (H) HGBA1C (%) Date Value 04/24/2024 5.3 07/27/2023 5.9 (H) HGB (g/dL) Date Value 04/24/2024 14.9 01/23/2024 15.9 HCT (%) Date Value 04/24/2024 47.5 (H) 01/23/2024 48.4 (H) CHOL (mg/dL) Date Value 04/24/2024 138 08/08/2023 168 TRIGLYC (mg/dL) Date Value 04/24/2024 96 08/08/2023 146 HDL (mg/dL) Date Value 04/24/2024 37 (L) 08/08/2023 44 LDL (mg/dL) Date Value 04/24/2024 83 08/08/2023 98 VLDL (mg/dL) Date Value 04/24/2024 18 08/08/2023 26 GLUCOSE (mg/dL) Date Value 04/24/2024 79 01/23/2024 90 BUN (mg/dL) Date Value 04/24/2024 11 01/23/2024 7 CREATININE (mg/dL) Date Value 04/24/2024 1.00 01/23/2024 1.07 (H) EGFR (mL/min/1.73) Date Value 04/24/2024 80 01/23/2024 74 05/31/2020 111 05/31/2020 128 AST (IU/L) Date Value 04/24/2024 16 01/23/2024 20 ALT (IU/L) Date Value 04/24/2024 16 01/23/2024 19 BILIRUBIN (mg/dL) Date Value 04/24/2024 0.3 01/23/2024 0.3 No results found for: URAMPHETQL, URCOCAINEQL, URTHCQL, UROPIATEQL, URETOHQL, URBUPRENQL, URBENZOQL, URMETHDQL Review of Systems Constitutional: Negative for appetite change. Cardiovascular: Positive for chest pain (per pt - sent message to PCP) and palpitations (per pt - sent message to PCP). Just with anxiety attacks; H/o the same PCP aware per him Gastrointestinal: Negative. Neurological: Negative for seizures. PD: denies noticing by either self or others (prev states shoulders; kind of like a tic; off and on; not new had that for a few years no change) Psychiatric/Behavioral: Positive for sleep disturbance (since surgery maybe an hour or two a night sleeping on my couch very uncomfortable, have to sleep in recliner; 1-2h; napping trying to avoid it; not restorative). Negative for hallucinations, homicidal ideas and suicidal ideas. The patient is not nervous/anxious (not too bad). Mental Status Exam Appearance is appropriate for circumstance. General Health is generally good. Eye Contact is good. Motor Activity is unremarkable. Speech is monotone. Affect is blunted (baseline). slight Reported Mood is depressed (less so than prior to starting Efffexor but still persistent) and anxious (less anxious). pretty good Thought Content is unremarkable. Thought Process is goal-directed and is linear. Perception is unremarkable. Attention is alert. Demeanor is appropriate for situation. Insight is appropriate. Judgement is appropriate. Orientation is fully oriented. Memory is grossly intact and not formally tested. Narrative: Reviewed [place] report 06/06/2024 which reveals lorazepam #15 last filled 05/13/24 (filled for 8-d/s but written for 15-d/s) and Adderall IR 15 mg #90 last filled 05/13/24 Total visit time today, including time spent reviewing chart and/or consulting prior to or after appointment was 22 minutes. Greater than 50% of this time was spent providing counseling and care coordination around chief complaint, including any additional diagnoses listed above. Shared-decision making was made with consideration for patient specific factors. All patient's questions were answered and patient verbally confirms and understands plan of care. Diagnosis: 1. Schizoaffective disorder, bipolar type ([facility]) - buPROPion XL (WELLBUTRIN XL) 150 mg 24 hr tablet; Take 1 Tablet by mouth daily. Dispense: 30 Tablet; Refill: 1 - mirtazapine (REMERON) 45 mg tablet; Take 1 Tablet by mouth nightly at bedtime Dispense: 30 Tablet; Refill: 1 - QUEtiapine (SEROQUEL) 300 mg tablet; Take 1 Tablet by mouth nightly at bedtime Dispense: 30 Tablet; Refill: 1 - venlafaxine XR (EFFEXOR XR) 150 mg 24 hr capsule; Take 1 Capsule by mouth once daily with breakfast along with 75 mg, for a total daily dose of 225 mg Dispense: 30 Capsule; Refill: 1 - venlafaxine XR (EFFEXOR XR) 75 mg 24 hr capsule; Take 1 Capsule by mouth once daily with breakfast along with 150 mg, for a total daily dose of 225 mg Dispense: 30 Capsule; Refill: 1 2. Attention deficit hyperactivity disorder (ADHD), predominantly inattentive type - buPROPion XL (WELLBUTRIN XL) 150 mg 24 hr tablet; Take 1 Tablet by mouth daily. Dispense: 30 Tablet; Refill: 1 - dextroamphetamine-amphetamine (ADDERALL) 15 mg tablet; Take 1 Tablet by mouth 3 (three) times daily for 30 days Dispense: 90 Tablet; Refill: 0 3. PTSD (post-traumatic stress disorder) - buPROPion XL (WELLBUTRIN XL) 150 mg 24 hr tablet; Take 1 Tablet by mouth daily. Dispense: 30 Tablet; Refill: 1 - mirtazapine (REMERON) 45 mg tablet; Take 1 Tablet by mouth nightly at bedtime Dispense: 30 Tablet; Refill: 1 - prazosin (MINIPRESS) 1 mg capsule; Take 1 Capsule by mouth nightly at bedtime Dispense: 30 Capsule; Refill: 1 - QUEtiapine (SEROQUEL) 300 mg tablet; Take 1 Tablet by mouth nightly at bedtime Dispense: 30 Tablet; Refill: 1 - venlafaxine XR (EFFEXOR XR) 150 mg 24 hr capsule; Take 1 Capsule by mouth once daily with breakfast along with 75 mg, for a total daily dose of 225 mg Dispense: 30 Capsule; Refill: 1 - venlafaxine XR (EFFEXOR XR) 75 mg 24 hr capsule; Take 1 Capsule by mouth once daily with breakfast along with 150 mg, for a total daily dose of 225 mg Dispense: 30 Capsule; Refill: 1 4. Generalized anxiety disorder - LORazepam (ATIVAN) 1 mg tablet; Take 1 Tablet by mouth 2 (two) times daily as needed for anxiety Dispense: 15 Tablet; Refill: 0 - mirtazapine (REMERON) 45 mg tablet; Take 1 Tablet by mouth nightly at bedtime Dispense: 30 Tablet; Refill: 1 - QUEtiapine (SEROQUEL) 300 mg tablet; Take 1 Tablet by mouth nightly at bedtime Dispense: 30 Tablet; Refill: 1 - venlafaxine XR (EFFEXOR XR) 150 mg 24 hr capsule; Take 1 Capsule by mouth once daily with breakfast along with 75 mg, for a total daily dose of 225 mg Dispense: 30 Capsule; Refill: 1 - venlafaxine XR (EFFEXOR XR) 75 mg 24 hr capsule; Take 1 Capsule by mouth once daily with breakfast along with 150 mg, for a total daily dose of 225 mg Dispense: 30 Capsule; Refill: 1 5. Insomnia disorder, persistent, with mental disorder - QUEtiapine (SEROQUEL) 300 mg tablet; Take 1 Tablet by mouth nightly at bedtime Dispense: 30 Tablet; Refill: 1 Plan: Increase Effexor XR to 225 mg PO qam for depression/anxiety Continue Adderall IR 15 mg PO tid for ADHD (pt reports only getting benefit from first dose, but he is not eating or getting any nutrients until dinner - advised him that he needs to intake some calories, preferably protein, and a protein shake would be a great way to accomplish this, as this will help the Adderall work as well as provide him wContinue prazosin 1 mg PO qhs for PTSD-related nightmaresith more mental and physical energy) Continue prazosin 1 mg PO qhs for PTSD-related nightmares Continue lorazepam 1 mg PO bid PRN for acute anxiety; dispensing #15 for 30-d/s Continue mirtazapine 45 mg PO qhs for depression/anxiety Continue Wellbutrin XL 150 mg PO qam for depression/ADHD Continue Seroquel 200 mg PO qhs for schizoaffective/ depressive adjunctive tx Sent message giving pt my fax number and asking him to have sleep clinic fax sleep study results to me, unless he is able to upload them directly through [employer] Further medication changes will depend on client report of symptoms and tolerability RTC in 4 weeks Explained rationale for medication choices and discussed possible risks, benefits and alternative treatment with client (parent/guardian)? [x] Yes [] No Client/Guardian Response: [x] Understands Information [] Does Not Understand [] Agrees with Medication [] Refuses Medication documented in this encounter [facility] Phone: 05-22-2024 History of Present illness Narrative Chief Complaint / HPI: Chief Complaint Patient presents with Pain Management Pain has worsened since last visit. More intense and spreading from top of neck to feet HPI Problems Assessed, Plan, Orders & Medical Decision Making 1. Pain (Primary) - pregabalin (LYRICA) 75 mg capsule; Take 1 Capsule by mouth 2 (two) times daily, Disp-60 Capsule, R-0 e-Prescribing, Long-term Dispense: 60 Capsule; Refill: 0 2. Weakness Overview: Pt states that he met with neuro and had labs done. He has an MRI of the spine ordered. He states that he is having increased weakness and wide spread pain. He states that he has even collapsed in weakness and pain. He states that once he collapsed he couldn't get up for a while. He states that he has been drinking water. He states that he wasn't eating the best. He states that he has been making an attempt to eat more. Neuro thinks that he is mal nourished. Pt states that he has not changed his eating habits. He has always eaten once a day. There have been a few time where he hasn't been able to do that. He has lost 10lbs since the last time I saw him. 05/22/24 Pt states that he called the rheum office and they told him they didn't get the referral we will reach out to our global mobility specialist to see what is going on. Pt states that the weakness and pain is worsening. He states that he struggles to do anything. He states that he has a deep sharp aching pain. He states that nothing makes it better or worse and that he wakes up in pain. He states that the upper back and his legs are the worst for the pain. Pt states that he was on a high dose of gabapentin after his top surgery. Pt states that he has never taken lyrica. He states that the gabapentin really didn't help much. Assessment & Plan: I would like to have him start lyrica for the time being while waiting to see rheum Depression Screening: PHQ2 Score (!) 3 at 01/21/2024 11:10 AM PHQ-9 Total Score (Auto Calculated) 9 at 01/21/2024 11:10 AM Depression Severity: Mild at 01/21/2024 11:10 AM Plan: Depression follow up provided: Counseling / education in visit BMI Readings from Last 3 Encounters: 05/12/24 31.93 kg/m 04/24/24 33.72 kg/m 01/23/24 37.13 kg/m BMI follow up plan for 18+: The patient was counseled regarding nutrition and physical activity BMI is not an accurate reflection of [...] well-being and mood. Tobacco Use and Intervention: Tobacco History Tobacco Use Smoking Status Every Day Current packs/day: 1.00 Types: Cigarettes Smokeless Tobacco Never Tobacco Comments 10/24: none in 2mos Ready to quit: Not Answered Counseling given: Not Answered Tobacco comments: 10/24: none in 2mos Plan: Tobacco Intervention: provided smoking cessation counseling Future Appointments Date Time Provider Department Center 06/09/2024 2:45 PM Ajit Paulino APRN [facility] 06/10/2024 9:30 AM Andrew Turpin APRN,[employer] [facility] ROS & Physical Exam Review of Systems Constitutional: Negative. HENT: Negative. Eyes: Negative. Respiratory: Negative. Cardiovascular: Negative. Endocrine: Negative. Genitourinary: Negative. Allergic/Immunologic: Negative. Neurological: Negative. Hematological: Negative. Physical Exam Vitals reviewed: limited d/t tele. Constitutional: General: He is not in acute distress. Appearance: Normal appearance. He is normal weight. He is not ill-appearing. HENT: Head: Normocephalic and atraumatic. Pulmonary: Effort: Pulmonary effort is normal. No respiratory distress. Musculoskeletal: General: Normal range of motion. Neurological: General: No focal deficit present. Mental Status: He is alert and oriented to person, place, and time. Psychiatric: Mood and Affect: Mood normal. Behavior: Behavior normal. Associated Problem(s): Weakness I would like to have him start lyrica for the time being while waiting to see rheum Images from the original note were not included. Rooming Note: Mil presents to [facility] today for No chief complaint on file. Virtual Visit Is the insurance information on file correct? N/A (in person visit) Since Last Visit? Been to an Urgent Care, ER or Hospital? n Seen any other providers / specialists? n Received any vaccines? n Had any tests, like a Xray, mammogram or colonoscopy? n Vaccines Recommended Today: Health Maintenance Due Topic Date Due Imm-Pneumococcal (1 of 2 - PCV) Never done Imm-Varicella (1 of 2 - 13+ 2-dose series) Never done Imm-Influenza (1) 03/02/2024 [id number] ( season) Never done ASQ To be completed annually on adolescents ages 18-24 No data to display SBIRT 01/21/2024 11:10 AM How many times in the past year have you had 4 or more drinks in a day? NONE How many times in the past year have you used a recreational drug or used a prescription medication for nonmedical reasons? NONE Little interest or pleasure in doing things Several days Feeling down, depressed or hopeless [include irritable if under 18] More than half the days PHQ2 Score (!) 3 Little interest or pleasure in doing things Several days Feeling down, depressed or hopeless [include irritable if under 18] More than half the days Trouble falling or staying asleep, or sleeping too much Several days Feeling tired or having little energy Several days Poor appetite or overeating Not at all Feeling bad about yourself - or that you are a failure or have let yourself or your family down Several days Trouble concentrating on things like school work, reading or watching TV? More than half the days Moving or speaking so slowly that other people could have noticed? Or the opposite - being so fidgety or restless that you have been moving around a lot more than usual Several days Thoughts you would be better off or of hurting yourself in some way Not at all If you checked off any problems, how difficult have these problems made it for you to do your work, take care of things at home, or get along with other people? Somewhat difficult PHQ-9 Total Score (Auto Calculated) 9 Depression Severity: Mild AUDIT Total Score (Auto Calculated) 2 at 07/25/2022 1:59 PM PHQ-9 Total Score (Auto Calculated) 9 at 01/21/2024 11:10 AM KULDEEP-7 04/24/2024 10:14 AM Feeling nervous, anxious, or on edge: Nearly every day Not being able to stop or control worrying: Nearly every day Worrying too much about different things: Nearly every day Trouble relaxing: Nearly every day Being so restless that it is hard to sit still: Nearly every day Becoming easily annoyed or irritable: Nearly every day Feeling afraid, as if something awful might happen: Nearly every day KULDEEP-7 Total (!) 21 Anxiety Severity: Severe Anxiety Difficulty: Extremely difficult Health Maintenance Due Topic Date Due Imm-Pneumococcal (1 of 2 - PCV) Never done Imm-Varicella (1 of 2 - 13+ 2-dose series) Never done Annual Preventive Care Visit 05/18/2021 Imm-Influenza (1) 03/02/2024 [id number] (2023- season) Never done Goals as of 05/22/2024 at 2:00 PM Diploma (pt-stated) Mil will work towards his diploma over the [...] use disorder Bipolar 2 disorder ([facility]) Gender dysphoria Attention deficit hyperactivity disorder (ADHD), predominantly inattentive type Pelvic pain History of suicide attempt S/P laparoscopic hysterectomy Obesity, Class III, BMI 40-49.9 (morbid obesity) ([facility]) Acne vulgaris Weight gain due to medication Abnormal movements Prediabetes Smoking Elevated liver enzymes Intractable migraine with status migrainosus Weakness Tele-Health Visit The patient's identity was verified at the start of the encounter. The patient and/or their guardian have given their verbal consent to this tele-health visit. This visit took place via tele-health video visit The patient's location is the patient is within [place] Additional persons on the call: no one Electromechanic used/present: No. documented in this encounter [employer] Work Phone: 05-13-2024 History of Present illness Narrative Tele-Health Visit Statement [employer] The patient's identity was verified and they have verbally stated that they are currently in the [facility]. The risks, benefits, and alternatives of a real time synchronous audiovisual consultation were discussed with the patient and/or their guardian and they have given their verbal consent to this tele-health visit. 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 Andrew says he has been having fully body weakness with nothing revealed by neuro. Pt reports that he never heard back from the sleep doctor at [facility] (who had told him that he was going to do a peer to peer with the insurance company to get the sleep study approved) - pt says he rec'd a notice from his insurance company stating that the sleep study was denied for lack of medical necessity. This is absurd, as pt has extreme difficulty sleeping, never feels rested, and is very tired during the day. As I was the ordering provider, and the insurance never notified me of any denial, I am not sure how to proceed. Will ask my colleagues for guidance and may ask referral team to contact insurance to get reason for denial so that I can appeal it. 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 Sees [facility] now for therapy, going every other week. No SI, nenita or psychosis. 1 f/u: The sleep study was scheduled, but then it required a PA through his insurance. The PA was denied, but the doctor called and appealed it and is doing a peer to peer which is scheduled for next at 2. He reports that the sleep study doctor was very concerned and wants to get it done as soon as possible. No updates on the custody situation. Pt had noted no improvement in ADHD sx or energy with the increase to Adderall XR 20 mg dose, although he did notice that he would feel extremely tired around noon and would feel very tired around 12:30 or 1 pm. He takes the Adderall XR around 6 am. With the 30 mg dose that he started last week, he notes no significant improvement other than some improved energy in the morning, but he continues to crash at 1 pm. He completed his MRI but his neurologist has not reported the results yet- he goes in to see him on 04/29. 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 He notes that he continues to have a good degree of panic attacks, but even the 2 mg doesn't seem to do much. He notes that 1 Plan: Add Adderall IR 15 mg PO qam around 12 pm as booster dose - sending 3 week supply to last until end of current Adderall XR 30 mg prescription D/c clonazepam d/t inefficacy and switch to lorazepam 1 mg PO qd PRN for acute anxiety; #15 for 30-d/s Increase Effexor to 187.5 mg PO qam for depression/anxiety Continue prazosin 1 mg PO qhs for PTSD-related nightmares Continue Seroquel 200 mg PO qhs for schizoaffective/ depressive adjunctive tx Continue mirtazapine 45 mg PO qhs for depression/anxiety Continue Wellbutrin XL 150 mg PO qam for depression/ADHD Further medication changes will depend on client report of symptoms and tolerability RTC in 3 weeks HPI Mil Toro is a 24 year old Adult here today for follow-up med management visit. Symptoms include sadness (worse since I've been stuck at home; go back next Sunday; before that was there, normal for me), decreased interest (not it; kind of been the same throughout), hopelessness, panic (handful, 4-5; 10m; out of nowhere talk to random somebody that I know), difficulty concentrating (yeah), increased fatigue (worse last couple weeks) and sleep disturbance (since surgery maybe an hour or two a night sleeping on my couch very uncomfortable, have to sleep in recliner; 1-2h; napping trying to avoid it; not restorative). Patient denies or there is no evidence of low self-esteem, guilt, nervousness/anxiousness (not too bad), inflated self-esteem, decreased need for sleep, euphoric mood, hallucinations, irritability, appetite change, suicidal ideas or homicidal ideas. Weight change: h/o disordered eating does weigh self. Onset of these symptoms was more than 1 year ago. Patient's report of symptoms since onset: unchanged. Symptoms occur constantly. The severity of symptoms is moderate. : 50h/w. Past treatments tried include: Medication therapy, which was effective. Psychotherapy treatment, which was effective (Kelly at [facility] see her next week). . Compliance with prior treatments has been good. Last KULDEEP-7 KULDEEP-7 Total (!) 21 at 04/24/2024 10:14 AM Last PHQ-9 PHQ-9 Total Score (Auto Calculated) 9 at 01/21/2024 11:10 AM HIV Care No results found for: CD4, COPIESML, HELPSUPP If client is HIV+, provider reviewed HIV care, Viral Load, and CD4: Not applicable AIMS 12/31/2023 2:00 PM 1. Muscles of facial expression none 2. [...] 05/31/2020 4.3 uU/mL WBC (x10E3/uL) Date Value 04/24/2024 7.0 01/23/2024 6.4 RBC (x10E6/uL) Date Value 04/24/2024 5.32 (H) 01/23/2024 5.65 (H) HGBA1C (%) Date Value 04/24/2024 5.3 07/27/2023 5.9 (H) HGB (g/dL) Date Value 04/24/2024 14.9 01/23/2024 15.9 HCT (%) Date Value 04/24/2024 47.5 (H) 01/23/2024 48.4 (H) CHOL (mg/dL) Date Value 04/24/2024 138 08/08/2023 168 TRIGLYC (mg/dL) Date Value 04/24/2024 96 08/08/2023 146 HDL (mg/dL) Date Value 04/24/2024 37 (L) 08/08/2023 44 LDL (mg/dL) Date Value 04/24/2024 83 08/08/2023 98 VLDL (mg/dL) Date Value 04/24/2024 18 08/08/2023 26 GLUCOSE (mg/dL) Date Value 04/24/2024 79 01/23/2024 90 BUN (mg/dL) Date Value 04/24/2024 11 01/23/2024 7 CREATININE (mg/dL) Date Value 04/24/2024 1.00 01/23/2024 1.07 (H) EGFR (mL/min/1.73) Date Value 04/24/2024 80 01/23/2024 74 05/31/2020 111 05/31/2020 128 AST (IU/L) Date Value 04/24/2024 16 01/23/2024 20 ALT (IU/L) Date Value 04/24/2024 16 01/23/2024 19 BILIRUBIN (mg/dL) Date Value 04/24/2024 0.3 01/23/2024 0.3 No results found for: URAMPHETQL, URCOCAINEQL, URTHCQL, UROPIATEQL, URETOHQL, URBUPRENQL, URBENZOQL, URMETHDQL Review of Systems Constitutional: Negative for appetite change. Cardiovascular: Positive for chest pain (per pt - sent message to PCP) and palpitations (per pt - sent message to PCP). Just with anxiety attacks; H/o the same PCP aware per him Gastrointestinal: Negative. Neurological: Negative for seizures. PD: denies noticing by either self or others (prev states shoulders; kind of like a tic; off and on; not new had that for a few years no change) Psychiatric/Behavioral: Positive for sleep disturbance (since surgery maybe an hour or two a night sleeping on my couch very uncomfortable, have to sleep in recliner; 1-2h; napping trying to avoid it; not restorative). Negative for hallucinations, homicidal ideas and suicidal ideas. The patient is not nervous/anxious (not too bad). Mental Status Exam Appearance is appropriate for circumstance. General Health is generally good. Eye Contact is good. Motor Activity is unremarkable. Speech is monotone. Affect is blunted (baseline). slight Reported Mood is anxious (primarily related to his coworker who is someone he has bad hx with)Depressed: less so than prior to starting Efffexor.. pretty good Thought Content is unremarkable. Thought Process is goal-directed and is linear. Perception is unremarkable. Attention is alert. Demeanor is appropriate for situation. Insight is appropriate. Judgement is appropriate. Orientation is fully oriented. Memory is grossly intact and not formally tested. Narrative: Reviewed [place] report 05/12/2024 which reveals Adderall IR 15 mg #21 last filled and lorazepam 1 mg #15 last filled 04/22/24 Total visit time today, including time spent reviewing chart and/or consulting prior to or after appointment was 31 minutes. Greater than 50% of this time was spent providing counseling and care coordination around chief complaint, including any additional diagnoses listed above. Shared-decision making was made with consideration for patient specific factors. All patient's questions were answered and patient verbally confirms and understands plan of care. Diagnosis: 1. Schizoaffective disorder, bipolar type ([facility]) - venlafaxine XR (EFFEXOR XR) 37.5 mg 24 hr capsule; Take 1 Capsule by mouth once daily with breakfast along with 150 mg, for a total daily dose of 187.5 mg Dispense: 30 Capsule; Refill: 1 - venlafaxine XR (EFFEXOR XR) 150 mg 24 hr capsule; Take 1 Capsule by mouth once daily with breakfast along with 37.5 mg, for a total daily dose of 187.5 mg Dispense: 30 Capsule; Refill: 1 - QUEtiapine (SEROQUEL) 300 mg tablet; Take 1 Tablet by mouth nightly at bedtime Dispense: 30 Tablet; Refill: 1 - buPROPion XL (WELLBUTRIN XL) [...] daily. Dispense: 30 Tablet; Refill: 1 - dextroamphetamine-amphetamine (ADDERALL) 15 mg tablet; Take 1 Tablet by mouth 3 (three) times daily for 30 days Dispense: 90 Tablet; Refill: 0 3. PTSD (post-traumatic stress disorder) - venlafaxine XR (EFFEXOR XR) 150 mg 24 hr capsule; Take 1 Capsule by mouth once daily with breakfast along with 37.5 mg, for a total daily dose of 187.5 mg Dispense: 30 Capsule; Refill: 1 - QUEtiapine (SEROQUEL) 300 mg tablet; Take 1 Tablet by mouth nightly at bedtime Dispense: 30 Tablet; Refill: 1 - buPROPion XL (WELLBUTRIN XL) 150 mg 24 hr tablet; Take 1 Tablet by mouth daily. Dispense: 30 Tablet; Refill: 1 - mirtazapine (REMERON) 45 mg tablet; Take 1 Tablet by mouth nightly at bedtime Dispense: 30 Tablet; Refill: 1 - prazosin (MINIPRESS) 1 mg capsule; Take 1 Capsule by mouth nightly at bedtime Dispense: 30 Capsule; Refill: 1 4. Generalized anxiety disorder - venlafaxine XR (EFFEXOR XR) 37.5 mg 24 hr capsule; Take 1 Capsule by mouth once daily with breakfast along with 150 mg, for a total daily dose of 187.5 mg Dispense: 30 Capsule; Refill: 1 - venlafaxine XR (EFFEXOR XR) 150 mg 24 hr capsule; Take 1 Capsule by mouth once daily with breakfast along with 37.5 mg, for a total daily dose of 187.5 mg Dispense: 30 Capsule; Refill: 1 - QUEtiapine (SEROQUEL) 300 mg tablet; Take 1 Tablet by mouth nightly at bedtime Dispense: 30 Tablet; Refill: 1 - mirtazapine (REMERON) 45 mg tablet; Take 1 Tablet by mouth nightly at bedtime Dispense: 30 Tablet; Refill: 1 - LORazepam (ATIVAN) 1 mg tablet; Take 1 Tablet by mouth 2 (two) times daily as needed for anxiety Dispense: 15 Tablet; Refill: 0 5. Insomnia disorder, persistent, with mental disorder - QUEtiapine (SEROQUEL) 300 mg tablet; Take 1 Tablet by mouth nightly at bedtime Dispense: 30 Tablet; Refill: 1 Plan: Switch Adderall to all IR, 15 mg PO tid for ADHD. Pt gets benefit from the IR booster dose but not the equivalent IR dose Continue Effexor 187.5 mg PO qam for depression/anxiety Continue prazosin 1 mg PO qhs for PTSD-related nightmares Continue lorazepam 1 mg PO qd PRN for acute anxiety Continue mirtazapine 45 mg PO qhs for depression/anxiety Continue Wellbutrin XL 150 mg PO qam for depression/ADHD Continue Seroquel 200 mg PO qhs for schizoaffective/ depressive adjunctive tx Sent msg to triage nurse, asking her to call insurance and find out why they are denying the sleep study, as it is needed Further medication changes will depend on client report of symptoms and tolerability RTC in 4 weeks Explained rationale for medication choices and discussed possible risks, benefits and alternative treatment with client (parent/guardian)? [x] Yes [] No Client/Guardian Response: [x] Understands Information [] Does Not Understand [] Agrees with Medication [] Refuses Medication documented in this encounter [facility] Phone: 05-12-2024 History of Present illness Narrative Chief Complaint / HPI: Chief Complaint Patient presents with Follow Up Neuro appt- neuro does not believe certain issues were neurological HPI Problems Assessed, Plan, Orders & Medical Decision Making 1. Weakness (Primary) Overview: Pt states that he met with neuro and had labs done. He has an MRI of the spine ordered. He states that he is having increased weakness and wide spread pain. He states that he has even collapsed in weakness and pain. He states that once he collapsed he couldn't get up for a while. He states that he has been drinking water. He states that he wasn't eating the best. He states that he has been making an attempt to eat more. Neuro thinks that he is mal nourished. Pt states that he has not changed his eating habits. He has always eaten once a day. There have been a few time where he hasn't been able to do that. He has lost 10lbs since the last time I saw him. Assessment & Plan: Our plan is to have him try to eat more rounded meals and potentially adding the nutritional supplements as well. He is going to get a lumbar MRI Neuro said that if his symptoms worsen to go to the ER for further testing and possible admission. Neuro is wondering if this could be autoimmune Rheum referral placed Orders: - REFERRAL TO RHEUMATOLOGY Depression Screening: PHQ2 Score (!) 3 at 01/21/2024 11:10 AM PHQ-9 Total Score (Auto Calculated) 9 at 01/21/2024 11:10 AM Depression Severity: Mild at 01/21/2024 11:10 AM Plan: Depression follow up provided: Counseling / education in visit BMI Readings from Last 3 Encounters: 05/12/24 31.93 kg/m 04/24/24 33.72 kg/m 01/23/24 37.13 kg/m BMI follow up plan for 18+: The patient was counseled regarding nutrition and physical activity BMI is not an accurate reflection of [...] well-being and mood. Tobacco Use and Intervention: Tobacco History Tobacco Use Smoking Status Every Day Current packs/day: 1.00 Types: Cigarettes Smokeless Tobacco Never Tobacco Comments 10/24: none in 2mos Ready to quit: Not Answered Counseling given: Not Answered Tobacco comments: 10/24: none in 2mos Plan: Tobacco Intervention: provided smoking cessation counseling Follow-up Instructions Return in about 4 weeks (around 06/09/2024). Future Appointments Date Time Provider Department Center 05/13/2024 2:15 PM Ajit Paulino APRN [facility] 06/10/2024 9:30 AM Andrew Turpin APRN,S[employer] [facility] ROS & Physical Exam Review of Systems Constitutional: Positive for fatigue. HENT: Negative. Eyes: Negative. Respiratory: Negative. Cardiovascular: Negative. Breasts: Negative. Gastrointestinal: Negative. Endocrine: Negative. Genitourinary: Negative. Musculoskeletal: Positive for myalgias. Neurological: Positive for dizziness and weakness. Hematological: Negative. Psychiatric/Behavioral: Negative. Physical Exam Vitals reviewed: limited d/t tele. Constitutional: General: He is not in acute distress. Appearance: Normal appearance. He is normal weight. He is not ill-appearing. HENT: Head: Normocephalic and atraumatic. Pulmonary: Effort: Pulmonary effort is normal. No respiratory distress. Musculoskeletal: Cervical back: Normal range of motion. Neurological: Mental Status: He is alert and oriented to person, place, and time. Psychiatric: Mood and Affect: Mood normal. Behavior: Behavior normal. [facility]Health [facility] The patient's identity was verified and they have verbally stated that they are currently in the [facility]. The risks, benefits, and alternatives of a real time synchronous audiovisual consultation were discussed with the patient and/or their guardian and they have given their verbal consent to this tele-health visit. This visit took place via tele-health video visit Additional persons on the call: no one Electromechanic used/present: Not Applicable Patient location : home Provider location : Visit occurred at providers home Associated Problem(s): Weakness Our plan is to have him try to eat more rounded meals and potentially adding the nutritional supplements as well. He is going to get a lumbar MRI Neuro said that if his symptoms worsen to go to the ER for further testing and possible admission. Neuro is wondering if this could be autoimmune Rheum referral placed Images from the original note were not included. Rooming Note: Mil presents to [facility] today for No chief complaint on file. Since Last Visit? Been to an Urgent Care, ER or Hospital? n Seen any other providers / specialists? neuro Received any vaccines? n Had any tests, like a Xray, mammogram or colonoscopy? n Vaccines Recommended Today: Health Maintenance Due Topic Date Due Imm-Pneumococcal (1 of 2 - PCV) Never done Imm-Varicella (1 of 2 - 13+ 2-dose series) Never done Imm-Influenza (1) 03/02/2024 [id number] (2023- season) Never done ASQ To be completed annually on adolescents ages 18-24 No data to display SBIRT 01/21/2024 11:10 AM How many times in the past year have you had 4 or more drinks in a day? NONE How many times in the past year have you used a recreational drug or used a prescription medication for nonmedical reasons? NONE Little interest or pleasure in doing things Several days Feeling down, depressed or hopeless [include irritable if under 18] More than half the days PHQ2 Score (!) 3 Little interest or pleasure in doing things Several days Feeling down, depressed or hopeless [include irritable if under 18] More than half the days Trouble falling or staying asleep, or sleeping too much Several days Feeling tired or having little energy Several days Poor appetite or overeating Not at all Feeling bad about yourself - or that you are a failure or have let yourself or your family down Several days Trouble concentrating on things like school work, reading or watching TV? More than half the days Moving or speaking so slowly that other people could have noticed? Or the opposite - being so fidgety or restless that you have been moving around a lot more than usual Several days Thoughts you would be better off or of hurting yourself in some way Not at all If you checked off any problems, how difficult have these problems made it for you to do your work, take care of things at home, or get along with other people? Somewhat difficult PHQ-9 Total Score (Auto Calculated) 9 Depression Severity: Mild AUDIT Total Score (Auto Calculated) 2 at 07/25/2022 1:59 PM PHQ-9 Total Score (Auto Calculated) 9 at 01/21/2024 11:10 AM KULDEEP-7 04/24/2024 10:14 AM Feeling nervous, anxious, or on edge: Nearly every day Not being able to stop or control worrying: Nearly every day Worrying too much about different things: Nearly every day Trouble relaxing: Nearly every day Being so restless that it is hard to sit still: Nearly every day Becoming easily annoyed or irritable: Nearly every day Feeling afraid, as if something awful might happen: Nearly every day KULDEEP-7 Total (!) 21 Anxiety Severity: Severe Anxiety Difficulty: Extremely difficult Health Maintenance Due Topic Date Due Imm-Pneumococcal (1 of 2 - PCV) Never done Imm-Varicella (1 of 2 - 13+ 2-dose series) Never done Annual Preventive Care Visit 05/18/2021 Imm-Influenza (1) 03/02/2024 [id number] ( season) Never done Goals as of 05/12/2024 at 8:16 AM Diploma (pt-stated) Mil will work towards his diploma over the [...] use disorder Bipolar 2 disorder ([facility]) Gender dysphoria Attention deficit hyperactivity disorder (ADHD), predominantly inattentive type Pelvic pain History of suicide attempt S/P laparoscopic hysterectomy Obesity, Class III, BMI 40-49.9 (morbid obesity) ([facility]) Acne vulgaris Weight gain due to medication Abnormal movements Prediabetes Smoking Elevated liver enzymes Intractable migraine with status migrainosus Tele-Health Visit The patient's identity was verified at the start of the encounter. The patient and/or their guardian have given their verbal consent to this tele-health visit. This visit took place via tele-health video visit The patient's location is the patient is within [place] Additional persons on the call: no one Electromechanic used/present: No. documented in this encounter [employer] Work Phone: 04-29-2024 Note Follow up Patient Vi sit [facility] Rommel Buchanan, [address], [place] [address] (office) Date of service: 04/29/2024 ID: Mil Toro, 24 y.o., adult; : 2000 Chief Concerns and reason for consult: Mil Toro is a 24 y.o. trans male who comes for follow-up of consultation regarding Migraine (Pt reports things were going well up until a month ago. Migraine slowly coming back. Topiramate is effective when used. Nurtec is being taken 3x a week. Last month diet changes, a long with medication changes, increased stress. Last 1-2 month with 7 migraines. Migraines lasting less than 2 days. Nausea associated with migraine. Senstivity to light and sound. Severity level rating 8/10. ) and Follow-up (Pt reports numbness to b/l feet and hands. More so in feet than hands. Pins and needles sensation (pain). Memory difficulty; short term. Able to recall events from fpc. Occasional slurred speech. Difficulty with trying to find words to speak out. Issues with urinating. Unable to feel urge to pee. Leg cramps and muscle spasms. (Does have RLS in legs). Santi horse cramps and spasms that awake patient from sleep. ) Interval History 04/29/2024: Migraine: Treatment started during previous visit: Topiramate titrated to 100 mg nightly, which significantly improved headaches. Current Status: Migraines have increased in frequency and intensity over the past month due to heightened stress (recent family ) and medication changes. Currently experiencing 7 migraines in the last 1-2 months, each lasting less than 2 days. Symptoms: Nausea, sensitivity to light and sound, with severity rated at 8/10. Current Medications: Nurtec taken 3 times a week, which provides some relief. Numbness and Tingling: Description: Persistent numbness and tingling in bilateral feet and hands, described as decreased sensation, pins and needles, and sharp, tingly pain. Lower back pain radiating to the thigh is also noted. Onset: Mid-2022 Progression: Symptoms have worsened since December 2023. Duration: Constant Aggravating/Alleviating Factors: None identified Associated Factors: No clear weakness reported Additional Neurological Symptoms: Cramps and Muscle Spasms: Increased frequency of charley horse cramps, particularly in the legs, that wake the patient at night. The patient has a history of restless leg syndrome (RLS). Cognitive Symptoms: Reports of short-term memory difficulties and occasional slurred speech. The patient has difficulty finding words when speaking. Urinary Issues: Describes an inability to sense the urge to urinate but denies incontinence or bowel movement issues. There is no loss of sensation in the groin or perineal region per patient. Since previous visit, the patient has lost over 60 pounds due to being on Ozempic and topiramate. There have also been multiple Antidepressant medication changes for the past 6 months. History of Present Illness: Mr. Toro has a history of headaches that reportedly were episodic previously but now has become constant. Starting in July 2023 when the patient had an episode of COVID, shortly after he had holoacranial headaches, (sometimes localized to the occipital region, sometimes in front) headaches that are throbbing in nature, and associated with photophobia and phonophobia. When the headaches are bad he sometimes gets black squiggly lines, and vertigo occasionally tinnitus. Sometimes the headache prevents him from sleeping. He reports that the constant headaches vary in intensity between 7-10/10. Unfortunately he has been taking [id number] as well as prescription pain medication includingfioricet, medrol dosepak, elatriptan, - currently on nurtec every other day and fioricet twice daily. He reports he has received migraine cocktails in the past, however he denies receiving steroids or Depakote. Previously he is to get episodic throbbing headaches associated photophobia and phonophobia approximately once a month. Position change: no Worsened with physical activity: Denies Worse with bending over: Unsure Worse with cough: Sometimes Relieving factors: None. Triggers: Unclear now constant. Menstrual Period involvement: Has had hysterectomy Family history of migraines: dad Degree of Functional Impairment: severe Current Use of Meds to Treat SCOTT: Abortive meds? fioricet, medrol dosepak, elatriptan, - currently on nurtec and fioricet Daily use? yes - has been taking OTC initially daily, along wih zofran. Now with fioricet bid and nurtec eevry other day Prophylactic meds? has never tried it Sleep: difficulty getting to sleep, difficulty staying asleep. No snoring, waking up gasping for air, Sleep length per night 3-4 hrs, Evaluated for sleep apnea before - no, but scheduled to see aa sleep specialist Mood: not feeling depressed Energy: (more content not included)... [facility] 04-24-2024 History of Present illness Narrative Chief Complaint / HPI: Chief Complaint Patient presents with Gender Affirming Hormone Therapy Medication check -- Labs Gender Affirming Hormone Therapy Problems Assessed, Plan, Orders & Medical Decision Making 1. Gender dysphoria (Primary) Overview: On Testosterone since 05/2020 Mastectomy 10/16/22 12/25/22 Patient had top surgery with Dr. Estes 10/16/22, healing well. Has had follow-up with her already and patient is pleased with results. 04/24/24 Pt states that he is doing well with his T. Assessment & Plan: Orders: - BLOOD COUNT COMPLETE AUTO&AUTO DIFRNTL WBC - COMPREHENSIVE METABOLIC PANEL 2. Urinary retention - CULTURE BACTERIAL QUANTITATIVE COLONY COUNT URINE 3. Screening for ischemic heart disease - LIPID PANEL WITH LDL:HDL RATIO 4. Prediabetes Overview: Patient taking metformin, no associated [...] 30lbs. He also struggles with daily diarrhea Orders: - HEMOGLOBIN GLYCOSYLATED A1C - BLOOD COUNT COMPLETE AUTO&AUTO DIFRNTL WBC - COMPREHENSIVE METABOLIC PANEL 5. Intractable chronic migraine with aura with status migrainosus Overview: Pt had covid about a month ago. He states that he has been struggling with vomiting and dizziness since. He states that he has a migraine that started a week ago. He has been to the ER a couple of times. He states that the one time they gave him benadryl, comazine, and toradol IV which helped for a couple of hours. 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 Pt had an US of the gallbladder as well. He states that he has been taking excedrin and IBU with little relief. He states that these usually work for him. The only new medication change is an increase of 10mg of his prozac. He is going to message ajit about that today. I don't think that would have such a significant effect but I told him that he can go back to his previous dose and message Ajit. 10/08/23 Pt states that he was finally able to get the nurtec with a manufacturers coupon. He states that the nurtec takes the edge off a little. He went to the Er again last week and was treated for a sinus infection. That didn't really seem to change the headaches. He was seen by Ajit a couple of weeks ago and he is going to get sleep study. The fiorcet seems to help pt sleep and get some slight relief as does the nurtec. He is still not able to work. He is on a 30 day EMY. He states that he gets dizzy He is taking the fiorcet BID 04/24/24 Pt sees Neuro on Sunday Had MRI 04/07/24 We reviewed this There is what they think is a cyst Pt takes the nurtec as needed but He went months without taking it and now he is getting more migraines . His co worker feels like he could have MS, We discussed this possibility He is not noticing when his bladder is full for about a month. He forces himself to pee. He states that he is struggling with finding words and speaking as wel las memory He gets full leg santi horses He is drinking a lot of water at least a gallon a day he feels like he still has to force it out Assessment & Plan: I encouraged him to make a list and bring all of this up to the neurologist next week. 6. Obesity, Class III, BMI 40-49.9 (morbid obesity) ([facility]) Overview: Patient is trying to lose weight, states he had been good with diet but recently has not been eating healthy. Was started on strattera for ADHD at [facility]. Was not effective for ADHD but was helpful with weight loss, lost 20 pounds in that period while on it but regained that weight plus additional pounds after stopping it. Considering starting GLP-1. 08/25/22: patient contacted insurance and was informed that saxenda is approved under their insurance plan 04/24/24 Pt is very pleased with his weight loss thus far. He is doing well on ozempic Depression Screening: PHQ2 Score (!) 3 at 01/21/2024 11:10 AM PHQ-9 Total Score (Auto Calculated) 9 at 01/21/2024 11:10 AM Depression Severity: Mild at 01/21/2024 11:10 AM Plan: Depression follow up provided: Counseling / education in visit BMI Readings from Last 3 Encounters: 04/24/24 33.72 kg/m 01/23/24 37.13 kg/m 08/08/23 42.73 kg/m BMI follow up plan for 18+: The patient was counseled regarding nutrition and physical activity BMI is not an accurate reflection of [...] well-being and mood. Tobacco Use and Intervention: Tobacco History Tobacco Use Smoking Status Every Day Current packs/day: 1.00 Types: Cigarettes Smokeless Tobacco Never Tobacco Comments 10/24: none in 2mos Ready to quit: Not Answered Counseling given: Not Answered Tobacco comments: 10/24: none in 2mos Plan: Tobacco Intervention: provided smoking cessation counseling Future Appointments Date Time Provider Department Center 05/13/2024 2:15 PM Ajit Paulino APRN [facility] ROS & Physical Exam Review of Systems Constitutional: Negative. HENT: Negative. Eyes: Negative. Respiratory: Negative. Cardiovascular: Negative. Breasts: Negative. Gastrointestinal: Negative. Endocrine: Negative. Genitourinary: Positive for difficulty urinating. Musculoskeletal: Positive for myalgias. Allergic/Immunologic: Negative. Neurological: Positive for speech difficulty, light-headedness and headaches. Hematological: Negative. Psychiatric/Behavioral: The patient is nervous/anxious. Physical Exam Vitals [...] equal, round, and reactive to light. Neck: Trachea: Trachea normal. No tracheal deviation. Cardiovascular: [...] breath sounds, wheezing, rhonchi or rales. Abdominal: Palpations: There is no hepatomegaly or splenomegaly. Musculoskeletal: General: No tenderness or deformity. Normal range of motion. Cervical back: Normal range of motion and neck supple. No erythema or rigidity. Lymphadenopathy: Cervical: No cervical adenopathy. Skin: General: Skin is warm and dry. Coloration: Skin is not pale. Findings: No abrasion, erythema or rash. Neurological: Mental Status: He is alert and oriented to person, place, and time. Mental status is at baseline. Motor: No tremor, atrophy, abnormal muscle tone or seizure activity. Gait: Gait normal. Psychiatric: Mood and Affect: Mood normal. Speech: Speech normal. Behavior: Behavior normal. Thought Content: Thought content normal. Associated Problem(s): Intractable migraine with status migrainosus I encouraged him to make a list and bring all of this up to the neurologist next week. Associated Problem(s): Gender dysphoria Images from the original note were not included. Rooming Note: Mil presents to [facility] today for Gender Affirming Hormone Therapy (Medication check -- Labs ) Virtual Visit Is the insurance information on file correct? N/A (in person visit) Since Last Visit? Been to an Urgent Care, ER or Hospital? no Seen any other providers / specialists? Sleep disorder dr Received any vaccines? no Had any tests, like a Xray, mammogram or colonoscopy? MRI Vaccines Recommended Today: Health Maintenance Due Topic Date Due Imm-Pneumococcal (1 of 2 - PCV) Never done Imm-Varicella (1 of 2 - 13+ 2-dose series) Never done Imm-Influenza (1) 03/02/2024 [id number] ( season) Never done ASQ To be completed annually on adolescents ages 18-24 No data to display SBIRT 01/21/2024 11:10 AM How many times in the past year have you had 4 or more drinks in a day? NONE How many times in the past year have you used a recreational drug or used a prescription medication for nonmedical reasons? NONE Little interest or pleasure in doing things Several days Feeling down, depressed or hopeless [include irritable if under 18] More than half the days PHQ2 Score (!) 3 Little interest or pleasure in doing things Several days Feeling down, depressed or hopeless [include irritable if under 18] More than half the days Trouble falling or staying asleep, or sleeping too much Several days Feeling tired or having little energy Several days Poor appetite or overeating Not at all Feeling bad about yourself - or that you are a failure or have let yourself or your family down Several days Trouble concentrating on things like school work, reading or watching TV? More than half the days Moving or speaking so slowly that other people could have noticed? Or the opposite - being so fidgety or restless that you have been moving around a lot more than usual Several days Thoughts you would be better off or of hurting yourself in some way Not at all If you checked off any problems, how difficult have these problems made it for you to do your work, take care of things at home, or get along with other people? Somewhat difficult PHQ-9 Total Score (Auto Calculated) 9 Depression Severity: Mild AUDIT Total Score (Auto Calculated) 2 at 07/25/2022 1:59 PM PHQ-9 Total Score (Auto Calculated) 9 at 01/21/2024 11:10 AM KULDEEP-7 04/24/2024 10:14 AM Feeling nervous, anxious, or on edge: Nearly every day Not being able to stop or control worrying: Nearly every day Worrying too much about different things: Nearly every day Trouble relaxing: Nearly every day Being so restless that it is hard to sit still: Nearly every day Becoming easily annoyed or irritable: Nearly every day Feeling afraid, as if something awful might happen: Nearly every day KULDEEP-7 Total (!) 21 Anxiety Severity: Severe Anxiety Difficulty: Extremely difficult Health Maintenance Due Topic Date Due Imm-Pneumococcal (1 of 2 - PCV) Never done Imm-Varicella (1 of 2 - 13+ 2-dose series) Never done HIV Screening Never done Annual Preventive Care Visit Never done Imm-Influenza (1) 03/02/2024 [id number] ( season) Never done Goals as of 04/24/2024 at 10:19 AM Diploma (pt-stated) Mil will work towards his diploma over the [...] disorder) Nicotine use disorder Bipolar 2 disorder ([facility]) Gender dysphoria Attention deficit hyperactivity disorder (ADHD), predominantly inattentive type Pelvic pain History of suicide attempt S/P laparoscopic hysterectomy Obesity, Class III, BMI 40-49.9 (morbid obesity) ([facility]) Acne vulgaris Weight gain due to medication Abnormal movements Prediabetes Smoking Elevated liver enzymes Intractable migraine with status migrainosus HIV testing offered: declined STI testing offered: declined documented in this encounter [facility] Work Phone: 04-22-2024 History of Present illness Narrative Tele-Health Visit Statement [facility] The patient's identity was verified and they have verbally stated that they are currently in the [facility]. The risks, benefits, and alternatives of a real time synchronous audiovisual consultation were discussed with the patient and/or their guardian and they have given their verbal consent to this tele-health visit. This visit took place via tele-health video visit Additional persons on the call: no one Electromechanic used/present: Not Applicable Patient location : home Provider location : Visit occurred in clinic Chief Complaint Patient presents with Bipolar Disorder Follow Up Medication Management Attention Deficit Objective The sleep study was scheduled, but then it required a PA through his insurance. The PA was denied, but the doctor called and appealed it and is doing a peer to peer which is scheduled for next at 2. He reports that the sleep study doctor was very concerned and wants to get it done as soon as possible. No updates on the custody situation. Pt had noted no improvement in ADHD sx or energy with the increase to Adderall XR 20 mg dose, although he did notice that he would feel extremely tired around noon and would feel very tired around 12:30 or 1 pm. He takes the Adderall XR around 6 am. With the 30 mg dose that he started last week, he notes no significant improvement other than some improved energy in the morning, but he continues to crash at 1 pm. He completed his MRI but his neurologist has not reported the results yet- he goes in to see him on 04/29. 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 He notes that he continues to have a good degree of panic attacks, but even the 2 mg doesn't seem to do much. He notes that 03/18/24 f/u: Pt reports that he has been very stressed out related to a custody mays with the kids and their biological father; this last week, this man was arrested for felonious assault. Things are all right at work, although one of the nurses is this man's mother, and Mil's employer tries to make sure that he does not have to work with her, but they still run into each other, which continues to cause a great deal of anxiety. At home, Mil reports that his anxiety levels are generally good aside from worrying about this man showing up at their house and hurting them, but overall it's much better at home, whereas at work he has to worry about this nurse, and now her daughter works there too. He notes that the clonazepam now helps a little bit but not as much as he would like it to. He has a sleep study consult now scheduled for 04/01; his sleep has been poor again, likely related to stress and anxiety. He did not have any reduction in sleep quantity or quality with the Adderall, and he did not note any other ASE from the Adderall. He did not note significant improvement in ADHD sx at the 15 mg dose. He is struggling greatly with sleep initiation, but once he falls asleep he can maintain sleep; reports 4-5 hours sleep per night. Has only had one nightmare since restarting the prazosin. 03/18/24 Plan: Increase dose of clonazepam to 2 mg; qd PRN for acute anxiety; still #15 for 30-d/s, so be used at work Continue prazosin 1 mg PO qhs for PTSD-related nightmares Continue Seroquel 200 mg PO qhs for schizoaffective/ depressive adjunctive tx Continue mirtazapine 45 mg PO qhs for depression/anxiety Continue Effexor XR 150 mg PO qam for depression/anxiety Continue Wellbutrin XL 150 mg PO qam for depression/ADHD Further medication changes will depend on client report of symptoms and tolerability RTC in 6 weeks HPI Mil Toro is a 24 year old Adult here today for follow-up med management visit. Symptoms include sadness (worse since I've been stuck at home; go back next Sunday; before that was there, normal for me), decreased interest (not it; kind of been the same throughout), hopelessness, panic (handful, 4-5; 10m; out of nowhere talk to random somebody that I know), difficulty concentrating (yeah), increased fatigue (worse last couple weeks) and sleep disturbance (since surgery maybe an hour or two a night sleeping on my couch very uncomfortable, have to sleep in recliner; 1-2h; napping trying to avoid it; not restorative). Patient denies or there is no evidence of low self-esteem, guilt, nervousness/anxiousness (not too bad), inflated self-esteem, decreased need for sleep, euphoric mood, hallucinations, irritability, appetite change, suicidal ideas or homicidal ideas. Weight change: h/o disordered eating does weigh self. Onset of these symptoms was more than 1 year ago. Patient's report of symptoms since onset: unchanged. Symptoms occur constantly. The severity of symptoms is moderate. : 50h/w. Past treatments tried include: Medication therapy, which was effective. Psychotherapy treatment, which was effective ([facility] at [facility] see her next week). . Compliance with prior treatments has been good. Last KULDEEP-7 KULDEEP-7 Total (!) 16 at 11/08/2020 8:00 AM Last PHQ-9 PHQ-9 Total Score (Auto Calculated) 9 at 01/21/2024 11:10 AM HIV Care No results found for: CD4, COPIESML, HELPSUPP If client is HIV+, provider reviewed HIV care, Viral Load, and CD4: Not applicable AIMS 12/31/2023 2:00 PM 1. Muscles of facial expression none 2. [...] 05/31/2020 4.3 uU/mL WBC (x10E3/uL) Date Value 01/23/2024 6.4 08/08/2023 8.7 RBC (x10E6/uL) Date Value 01/23/2024 5.65 (H) 08/08/2023 5.79 (H) HGBA1C (%) Date Value 07/27/2023 5.9 (H) 06/02/2022 5.7 (H) HGB (g/dL) Date Value 01/23/2024 15.9 08/08/2023 15.7 HCT (%) Date Value 01/23/2024 48.4 (H) 08/08/2023 48.7 (H) CHOL (mg/dL) Date Value 08/08/2023 168 09/28/2022 127 TRIGLYC (mg/dL) Date Value 08/08/2023 146 09/28/2022 77 HDL (mg/dL) Date Value 08/08/2023 44 09/28/2022 42 LDL (mg/dL) Date Value 08/08/2023 98 09/28/2022 70 VLDL (mg/dL) Date Value 08/08/2023 26 09/28/2022 15 GLUCOSE (mg/dL) Date Value 01/23/2024 90 08/08/2023 116 (H) BUN (mg/dL) Date Value 01/23/2024 7 08/08/2023 12 CREATININE (mg/dL) Date Value 01/23/2024 1.07 (H) 08/08/2023 0.92 EGFR (mL/min/1.73) Date Value 01/23/2024 74 08/08/2023 89 05/31/2020 111 05/31/2020 128 AST (IU/L) Date Value 01/23/2024 20 08/08/2023 31 ALT (IU/L) Date Value 01/23/2024 19 08/08/2023 45 (H) BILIRUBIN (mg/dL) Date Value 01/23/2024 0.3 08/08/2023 0.3 No results found for: URAMPHETQL, URCOCAINEQL, URTHCQL, UROPIATEQL, URETOHQL, URBUPRENQL, URBENZOQL, URMETHDQL Review of Systems Constitutional: Negative for appetite change. Cardiovascular: Positive for chest pain (per pt - sent message to PCP) and palpitations (per pt - sent message to PCP). Just with anxiety attacks; H/o the same PCP aware per him Gastrointestinal: Negative. Neurological: Negative for seizures. PD: denies noticing by either self or others (prev states shoulders; kind of like a tic; off and on; not new had that for a few years no change) Psychiatric/Behavioral: Positive for sleep disturbance (since surgery maybe an hour or two a night sleeping on my couch very uncomfortable, have to sleep in recliner; 1-2h; napping trying to avoid it; not restorative). Negative for hallucinations, homicidal ideas and suicidal ideas. The patient is not nervous/anxious (not too bad). Mental Status Exam Appearance is appropriate for circumstance. General Health is generally good. Eye Contact is good. Motor Activity is unremarkable. Speech is monotone. Affect is blunted (baseline). slight Reported Mood is anxious (primarily related to his coworker who is someone he has bad hx with)Depressed: less so than prior to starting Efffexor.. pretty good Thought Content is unremarkable. Thought Process is goal-directed and is linear. Perception is unremarkable. Attention is alert. Demeanor is appropriate for situation. Insight is appropriate. Judgement is appropriate. Orientation is fully oriented. Memory is grossly intact and not formally tested. Narrative: Reviewed [place] report 04/22/2024 which reveals Adderall XR 30 mg #30 last filled 04/15/24 and clonazepam 2 mg #15 last filled 03/18/24. Total visit time today, including time spent reviewing chart and/or consulting prior to or after appointment was 26 minutes. Greater than 50% of this time was spent providing counseling and care coordination around chief complaint, including any additional diagnoses listed above. Shared-decision making was made with consideration for patient specific factors. All patient's questions were answered and patient verbally confirms and understands plan of care. Diagnosis: 1. Schizoaffective disorder, bipolar type ([facility]) - venlafaxine XR (EFFEXOR XR) 150 mg 24 hr capsule; Take 1 Capsule by mouth once daily with breakfast along with 37.5 mg, for a total daily dose of 187.5 mg Dispense: 30 Capsule; Refill: 1 - venlafaxine XR (EFFEXOR XR) 37.5 mg 24 hr capsule; Take 1 Capsule by mouth once daily with breakfast along with 150 mg, for a total daily dose of 187.5 mg Dispense: 30 Capsule; Refill: 1 - QUEtiapine (SEROQUEL) 300 mg tablet; Take 1 Tablet by mouth nightly at bedtime Dispense: 30 Tablet; Refill: 1 - mirtazapine (REMERON) 45 mg tablet; Take 1 Tablet by mouth nightly at bedtime Dispense: 30 Tablet; Refill: 1 - buPROPion XL (WELLBUTRIN XL) 150 mg 24 hr tablet; Take 1 Tablet by mouth daily. Dispense: 30 Tablet; Refill: 1 2. Attention deficit hyperactivity disorder (ADHD), predominantly inattentive type - dextroamphetamine-amphetamine (ADDERALL) 15 mg tablet; Take 1 Tablet by mouth once daily for 21 days Dispense: 21 Tablet; Refill: 0 - buPROPion XL (WELLBUTRIN XL) 150 mg 24 hr tablet; Take 1 Tablet by mouth daily. Dispense: 30 Tablet; Refill: 1 3. PTSD (post-traumatic stress disorder) - venlafaxine XR (EFFEXOR XR) 150 mg 24 hr capsule; Take 1 Capsule by mouth once daily with breakfast along with 37.5 mg, for a total daily dose of 187.5 mg Dispense: 30 Capsule; Refill: 1 - prazosin (MINIPRESS) 1 mg capsule; Take 1 Capsule by mouth nightly at bedtime Dispense: 30 Capsule; Refill: 1 - QUEtiapine (SEROQUEL) 300 mg tablet; Take 1 Tablet by mouth nightly at bedtime Dispense: 30 Tablet; Refill: 1 - mirtazapine (REMERON) 45 mg tablet; Take 1 Tablet by mouth nightly at bedtime Dispense: 30 Tablet; Refill: 1 - buPROPion XL (WELLBUTRIN XL) 150 mg 24 hr tablet; Take 1 Tablet by mouth daily. Dispense: 30 Tablet; Refill: 1 4. Generalized anxiety disorder - LORazepam (ATIVAN) 1 mg tablet; Take 1 Tablet by mouth 2 (two) times daily as needed for anxiety Dispense: 15 Tablet; Refill: 0 - venlafaxine XR (EFFEXOR XR) 150 mg 24 hr capsule; Take 1 Capsule by mouth once daily with breakfast along with 37.5 mg, for a total daily dose of 187.5 mg Dispense: 30 Capsule; Refill: 1 - venlafaxine XR (EFFEXOR XR) 37.5 mg 24 hr capsule; Take 1 Capsule by mouth once daily with breakfast along with 150 mg, for a total daily dose of 187.5 mg Dispense: 30 Capsule; Refill: 1 - QUEtiapine (SEROQUEL) 300 mg tablet; Take 1 Tablet by mouth nightly at bedtime Dispense: 30 Tablet; Refill: 1 - mirtazapine (REMERON) 45 mg tablet; Take 1 Tablet by mouth nightly at bedtime Dispense: 30 Tablet; Refill: 1 5. Insomnia disorder, persistent, with mental disorder - QUEtiapine (SEROQUEL) 300 mg tablet; Take 1 Tablet by mouth nightly at bedtime Dispense: 30 Tablet; Refill: 1 Plan: Add Adderall IR 15 mg PO qam around 12 pm as booster dose - sending 3 week supply to last until end of current Adderall XR 30 mg prescription D/c clonazepam d/t inefficacy and switch to lorazepam 1 mg PO qd PRN for acute anxiety; #15 for 30-d/s Increase Effexor to 187.5 mg PO qam for depression/anxiety Continue prazosin 1 mg PO qhs for PTSD-related nightmares Continue Seroquel 200 mg PO qhs for schizoaffective/ depressive adjunctive tx Continue mirtazapine 45 mg PO qhs for depression/anxiety Continue Wellbutrin XL 150 mg PO qam for depression/ADHD Further medication changes will depend on client report of symptoms and tolerability RTC in 3 weeks Explained rationale for medication choices and discussed possible risks, benefits and alternative treatment with client (parent/guardian)? [x] Yes [] No Client/Guardian Response: [x] Understands Information [] Does Not Understand [] Agrees with Medication [] Refuses Medication documented in this encounter [facility] Phone: 04-02-2024 Nurse Note [facility] shows Adderall XR 20 mg #30 last filled 03/18/24. Pt reports no significant improvement in the dose. Sending Adderall XR 30 mg to be filled 04/15 - appt is 04/29 documented in this encounter [facility] Phone: 09-17-2024 History of Present illness Narrative Tele-Health Visit Statement [facility] The patient's identity was verified and they have verbally stated that they are currently in the state [facility]. The risks, benefits, and alternatives of a real time synchronous audiovisual consultation were discussed with the patient and/or their guardian and they have given their verbal consent to this tele-health visit. This visit took place via tele-health video visit Additional persons on the call: no one Electromechanic used/present: Not Applicable Patient location : home Provider location : Visit occurred in clinic Chief Complaint Patient presents with Mood Disorder Follow Up Medication Management Objective Pt reports that he has been very stressed out related to a custody mays with the kids and their biological father; this last week, this man was arrested for felonious assault. Things are all right at work, although one of the nurses is this man's mother, and Mil's employer tries to make sure that he does not have to work with her, but they still run into each other, which continues to cause a great deal of anxiety. At home, Mil reports that his anxiety levels are generally good aside from worrying about this man showing up at their house and hurting them, but overall it's much better at home, whereas at work he has to worry about this nurse, and now her daughter works there too. He notes that the clonazepam now helps a little bit but not as much as he would like it to. He has a sleep study consult now scheduled for 04/01; his sleep has been poor again, likely related to stress and anxiety. He did not have any reduction in sleep quantity or quality with the Adderall, and he did not note any other ASE from the Adderall. He did not note significant improvement in ADHD sx at the 15 mg dose. He is struggling greatly with sleep initiation, but once he falls asleep he can maintain sleep; reports 4-5 hours sleep per night. Has only had one nightmare since restarting the prazosin. f/u: Mil states that he is all right. He notes that things are about the same as last time. He feels like the anxiety is about the same; I don't feel like the klonopin is helping at all when I do take it; he has only taken 6 of them at this point. He notes no improvement in ADHD sx with the Adderall, but also no impact on his appetite. Sleep hasn't been the best but nothing too bad. He reports that he thinks his problems with falling asleep are related to nightmares that he is having; he was on prazosin in the past with good efficacy (Silvia had him up to 4 mg) but he reports that he had to stop it bc he passed out at work. He has not missed any work since our last appointment. He is on board with increasing dose of Adderall, understanding that we will not increase both at the same time. His anxiety is primarily when a certain nurse is at work, who is someone he knows and has a bad history with. Other than that, he does have some anxiety but it is not out of control. He has been working some 12 hour shifts; he previously was drinking almost 1,000 mg of caffeine per day, whereas now he generally drinks about 150 mg. The last few days, he has been drinking more caffeine and he notes that he had some twitching in his eye. No SI, nenita or psychosis. He has been paying attention to his diet and since his neurologist put him on Topamax and then he started Ozempic so he has been able to regulate his diet more appropriately. Plan: Increase Adderall XR to 15 mg PO qam for ADHD Restart prazosin 1 mg po QHS for PTSD-related nightmares; pt was previously up to 5 mg with good efficacy but then had issues with hypotension Continue clonazepam 1 mg PO qd PRN for acute anxiety; will likely d/c as anxiety is primarily focused on one coworker and the clonazepam does not significantly alleviate it Continue Seroquel 200 mg PO qhs for schizoaffective/ depressive adjunctive tx Continue mirtazapine 45 mg PO qhs for depression/anxiety Continue Effexor XR 150 mg PO qam for depression/anxiety Continue Wellbutrin XL 150 mg PO qam for depression/ADHD Further medication changes will depend on client report of symptoms and tolerability RTC in 4 weeks HPI Mil Toro is a 23 year old Adult here today for follow-up med management visit. Symptoms include sadness (worse since I've been stuck at home; go back next Sunday; before that was there, normal for me), decreased interest (not it; kind of been the same throughout), hopelessness, panic (handful, 4-5; 10m; out of nowhere talk to random somebody that I know), difficulty concentrating (yeah), increased fatigue (worse last couple weeks) and sleep disturbance (since surgery maybe an hour or two a night sleeping on my couch very uncomfortable, have to sleep in recliner; 1-2h; napping trying to avoid it; not restorative). Patient denies or there is no evidence of low self-esteem, guilt, nervousness/anxiousness (not too bad), inflated self-esteem, decreased need for sleep, euphoric mood, hallucinations, irritability, appetite change, suicidal ideas or homicidal ideas. Weight change: h/o disordered eating does weigh self. Onset of these symptoms was more than 1 year ago. Patient's report of symptoms since onset: unchanged. Symptoms occur constantly. The severity of symptoms is moderate. : 50h/w. Past treatments tried include: Medication therapy, which was effective. Psychotherapy treatment, which was effective ([facility] see her next week). . Compliance with prior treatments has been good. Last KULDEEP-7 Kuldeep-7 Total (!) 16 at 11/08/2020 8:00 AM Last PHQ-9 PHQ-9 Total Score (Auto Calculated) 9 at 01/21/2024 11:10 AM HIV Care No results found for: CD4, COPIESML, HELPSUPP If client is HIV+, provider reviewed HIV care, Viral Load, and CD4: Not applicable AIMS 12/31/2023 2:00 PM 1. Muscles of facial expression none 2. [...] 05/31/2020 4.3 uU/mL WBC (x10E3/uL) Date Value 01/23/2024 6.4 08/08/2023 8.7 RBC (x10E6/uL) Date Value 01/23/2024 5.65 (H) 08/08/2023 5.79 (H) HGBA1C (%) Date Value 07/27/2023 5.9 (H) 06/02/2022 5.7 (H) HGB (g/dL) Date Value 01/23/2024 15.9 08/08/2023 15.7 HCT (%) Date Value 01/23/2024 48.4 (H) 08/08/2023 48.7 (H) CHOL (mg/dL) Date Value 08/08/2023 168 09/28/2022 127 TRIGLYC (mg/dL) Date Value 08/08/2023 146 09/28/2022 77 HDL (mg/dL) Date Value 08/08/2023 44 09/28/2022 42 LDL (mg/dL) Date Value 08/08/2023 98 09/28/2022 70 VLDL (mg/dL) Date Value 08/08/2023 26 09/28/2022 15 GLUCOSE (mg/dL) Date Value 01/23/2024 90 08/08/2023 116 (H) BUN (mg/dL) Date Value 01/23/2024 7 08/08/2023 12 CREATININE (mg/dL) Date Value 01/23/2024 1.07 (H) 08/08/2023 0.92 EGFR (mL/min/1.73) Date Value 01/23/2024 74 08/08/2023 89 05/31/2020 111 05/31/2020 128 AST (IU/L) Date Value 01/23/2024 20 08/08/2023 31 ALT (IU/L) Date Value 01/23/2024 19 08/08/2023 45 (H) BILIRUBIN (mg/dL) Date Value 01/23/2024 0.3 08/08/2023 0.3 No results found for: URAMPHETQL, URCOCAINEQL, URTHCQL, UROPIATEQL, URETOHQL, URBUPRENQL, URBENZOQL, URMETHDQL Review of Systems Constitutional: Negative for appetite change. Cardiovascular: Positive for chest pain (per pt - sent message to PCP) and palpitations (per pt - sent message to PCP). Just with anxiety attacks; H/o the same PCP aware per him Gastrointestinal: Negative. Neurological: Negative for seizures. PD: denies noticing by either self or others (prev states shoulders; kind of like a tic; off and on; not new had that for a few years no change) Psychiatric/Behavioral: Positive for sleep disturbance (since surgery maybe an hour or two a night sleeping on my couch very uncomfortable, have to sleep in recliner; 1-2h; napping trying to avoid it; not restorative). Negative for hallucinations, homicidal ideas and suicidal ideas. The patient is not nervous/anxious (not too bad). Mental Status Exam Appearance is appropriate for circumstance. General Health is generally good. Eye Contact is good. Motor Activity is unremarkable. Speech is monotone. Affect is blunted (baseline). slight Reported Mood is anxious (primarily related to his coworker who is someone he has bad hx with)Depressed: less so than prior to starting Efffexor.. pretty good Thought Content is unremarkable. Thought Process is goal-directed and is linear. Perception is unremarkable. Attention is alert. Demeanor is appropriate for situation. Insight is appropriate. Judgement is appropriate. Orientation is fully oriented. Memory is grossly intact and not formally tested. Narrative: Reviewed OARRS report 03/17/2024 which reveals Adderall XR 15 mg #30 last filled 01/28/24 and clonazepam 1 mg #15 last filled 01/28/24 Total visit time today, including time spent reviewing chart and/or consulting prior to or after appointment was 25 minutes. Greater than 50% of this time was spent providing counseling and care coordination around chief complaint, including any additional diagnoses listed above. Shared-decision making was made with consideration for patient specific factors. All patient's questions were answered and patient verbally confirms and understands plan of care. Diagnosis: 1. Schizoaffective disorder, bipolar type ([facility]) - venlafaxine XR (EFFEXOR XR) 150 mg 24 hr capsule; Take 1 Capsule by mouth once daily with breakfast Dispense: 30 Capsule; Refill: 1 - QUEtiapine (SEROQUEL) 300 mg tablet; Take 1 Tablet by mouth nightly at bedtime Dispense: 30 Tablet; Refill: 1 - mirtazapine (REMERON) 45 mg tablet; Take 1 Tablet by mouth nightly at bedtime Dispense: 30 Tablet; Refill: 1 - buPROPion XL (WELLBUTRIN XL) 150 mg 24 hr tablet; Take 1 Tablet by mouth daily. Dispense: 30 Tablet; Refill: 1 2. Attention deficit hyperactivity disorder (ADHD), predominantly inattentive type - dextroamphetamine-amphetamine (ADDERALL XR) 20 mg 24 hr capsule; Take 1 Capsule by mouth every morning for 30 days Dispense: 30 Capsule; Refill: 0 - buPROPion XL (WELLBUTRIN XL) 150 mg 24 hr tablet; Take 1 Tablet by mouth daily. Dispense: 30 Tablet; Refill: 1 3. PTSD (post-traumatic stress disorder) - venlafaxine XR (EFFEXOR XR) 150 mg 24 hr capsule; Take 1 Capsule by mouth once daily with breakfast Dispense: 30 Capsule; Refill: 1 - QUEtiapine (SEROQUEL) 300 mg tablet; Take 1 Tablet by mouth nightly at bedtime Dispense: 30 Tablet; Refill: 1 - prazosin (MINIPRESS) 1 mg capsule; Take 1 Capsule by mouth nightly at bedtime Dispense: 30 Capsule; Refill: 1 - mirtazapine (REMERON) 45 mg tablet; Take 1 Tablet by mouth nightly at bedtime Dispense: 30 Tablet; Refill: 1 - buPROPion XL (WELLBUTRIN XL) 150 mg 24 hr tablet; Take 1 Tablet by mouth daily. Dispense: 30 Tablet; Refill: 1 4. Generalized anxiety disorder - venlafaxine XR (EFFEXOR XR) 150 mg 24 hr capsule; Take 1 Capsule by mouth once daily with breakfast Dispense: 30 Capsule; Refill: 1 - QUEtiapine (SEROQUEL) 300 mg tablet; Take 1 Tablet by mouth nightly at bedtime Dispense: 30 Tablet; Refill: 1 - mirtazapine (REMERON) 45 mg tablet; Take 1 Tablet by mouth nightly at bedtime Dispense: 30 Tablet; Refill: 1 - clonazePAM (KLONOPIN) 2 mg tablet; Take 1 Tablet by mouth once daily as needed for anxiety Dispense: 15 Tablet; Refill: 1 5. Insomnia disorder, persistent, with mental disorder - QUEtiapine (SEROQUEL) 300 mg tablet; Take 1 Tablet by mouth nightly at bedtime Dispense: 30 Tablet; Refill: 1 Plan: Increase dose of clonazepam to 2 mg; qd PRN for acute anxiety; still #15 for 30-d/s, so be used at work Continue prazosin 1 mg PO qhs for PTSD-related nightmares Continue Seroquel 200 mg PO qhs for schizoaffective/ depressive adjunctive tx Continue mirtazapine 45 mg PO qhs for depression/anxiety Continue Effexor XR 150 mg PO qam for depression/anxiety Continue Wellbutrin XL 150 mg PO qam for depression/ADHD Further medication changes will depend on client report of symptoms and tolerability RTC in 6 weeks Explained rationale for medication choices and discussed possible risks, benefits and alternative treatment with client (parent/guardian)? [x] Yes [] No Client/Guardian Response: [x] Understands Information [] Does Not Understand [] Agrees with Medication [] Refuses Medication documented in this encounter [facility] Work Phone: 01-28-2024 History of Present illness Narrative Tele-Health Visit Statement [facility] The patient's identity was verified and they have verbally stated that they are currently in the [facility]. The risks, benefits, and alternatives of a real time synchronous audiovisual consultation were discussed with the patient and/or their guardian and they have given their verbal consent to this tele-health visit. This visit took place via tele-health video visit Additional persons on the call: no one Electromechanic used/present: Not Applicable Patient location : home Provider location : Visit occurred in clinic Chief Complaint Patient presents with Mood Disorder Medication Management Follow Up Attention Deficit Objective Mil states that he is all right. He notes that things are about the same as last time. He feels like the anxiety is about the same; I don't feel like the klonopin is helping at all when I do take it; he has only taken 6 of them at this point. He notes no improvement in ADHD sx with the Adderall, but also no impact on his appetite. Sleep hasn't been the best but nothing too bad. He reports that he thinks his problems with falling asleep are related to nightmares that he is having; he was on prazosin in the past with good efficacy (Silvia had him up to 4 mg) but he reports that he had to stop it bc he passed out at work. He has not missed any work since our last appointment. He is on board with increasing dose of Adderall, understanding that we will not increase both at the same time. His anxiety is primarily when a certain nurse is at work, who is someone he knows and has a bad history with. Other than that, he does have some anxiety but it is not out of control. He has been working some 12 hour shifts; he previously was drinking almost 1,000 mg of caffeine per day, whereas now he generally drinks about 150 mg. The last few days, he has been drinking more caffeine and he notes that he had some twitching in his eye. No SI, nenita or psychosis. He has been paying attention to his diet and since his neurologist put him on Topamax and then he started Ozempic so he has been able to regulate his diet more appropriately. 12/30 f/u: Pt reports that he is doing about the same. 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 He reports that he broke out in hives and his skin was burning and his hair stood on end - he went into the kitchen and stood in the freezer. He took 2 hydroxyzine that he had left over from last year which he reports did not help at all; he did take Benadryl to help with the itching (of course hydroxyzine is a powerful antihistamine as well). 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 He has not noticed too much improvement on the Adderall XR as of yet - he has noticed no impact on anxiety, appetite or sleep. In fact he is sleeping through the night, about at least 8 hours. He notes that he is finding it easier to eat regularly, but is not sure if this is related to the Adderall or not. Only side effect he noticed is more sweating but that's okay, I sweat a lot at work anyway. Discussed raising the dose to 10 mg to see if it's effective. Discussed the appropriate use of clonazepam, sparingly and when nothing else works to treat anxiety. 12/30 Plan: Increase Adderall XR to 10 mg PO qam for ADHD Add clonazepam 1 mg PO qd PRN for acute anxiety that is not controlled by any other measure; pt is aware to use sparingly and that I will not increase qty dispensed Ordered UDS Continue Seroquel 200 mg PO qhs for schizoaffective/ depressive adjunctive tx Continue mirtazapine 45 mg PO qhs for depression/anxiety Continue Effexor XR 150 mg PO qam for depression/anxiety Continue Wellbutrin XL 150 mg PO qam for depression/ADHD Further medication changes will depend on client report of symptoms and tolerability RTC in 4 weeks HPI Mil Toro is a 23 year old Adult here today for follow-up med management visit. Symptoms include sadness (worse since I've been stuck at home; go back next Sunday; before that was there, normal for me), decreased interest (not it; kind of been the same throughout), hopelessness, panic (handful, 4-5; 10m; out of nowhere talk to random somebody that I know), difficulty concentrating (yeah), increased fatigue (worse last couple weeks) and sleep disturbance (since surgery maybe an hour or two a night sleeping on my couch very uncomfortable, have to sleep in recliner; 1-2h; napping trying to avoid it; not restorative). Patient denies or there is no evidence of low self-esteem, guilt, nervousness/anxiousness (not too bad), inflated self-esteem, decreased need for sleep, euphoric mood, hallucinations, irritability, appetite change, suicidal ideas or homicidal ideas. Weight change: h/o disordered eating does weigh self. Onset of these symptoms was more than 1 year ago. Patient's report of symptoms since onset: unchanged. Symptoms occur constantly. The severity of symptoms is moderate. : 50h/w. Past treatments tried include: Medication therapy, which was effective. Psychotherapy treatment, which was effective ([facility] see her next week). . Compliance with prior treatments has been good. Last KULDEEP-7 Kuldeep-7 Total (!) 16 at 11/08/2020 8:00 AM Last PHQ-9 PHQ-9 Total Score (Auto Calculated) 9 at 01/21/2024 11:10 AM HIV Care No results found for: CD4, COPIESML, HELPSUPP If client is HIV+, provider reviewed HIV care, Viral Load, and CD4: Not applicable AIMS 12/31/2023 2:00 PM 1. Muscles of facial expression none 2. [...] 05/31/2020 4.3 uU/mL WBC (x10E3/uL) Date Value 01/23/2024 6.4 08/08/2023 8.7 RBC (x10E6/uL) Date Value 01/23/2024 5.65 (H) 08/08/2023 5.79 (H) HGBA1C (%) Date Value 07/27/2023 5.9 (H) 06/02/2022 5.7 (H) HGB (g/dL) Date Value 01/23/2024 15.9 08/08/2023 15.7 HCT (%) Date Value 01/23/2024 48.4 (H) 08/08/2023 48.7 (H) CHOL (mg/dL) Date Value 08/08/2023 168 09/28/2022 127 TRIGLYC (mg/dL) Date Value 08/08/2023 146 09/28/2022 77 HDL (mg/dL) Date Value 08/08/2023 44 09/28/2022 42 LDL (mg/dL) Date Value 08/08/2023 98 09/28/2022 70 VLDL (mg/dL) Date Value 08/08/2023 26 09/28/2022 15 GLUCOSE (mg/dL) Date Value 01/23/2024 90 08/08/2023 116 (H) BUN (mg/dL) Date Value 01/23/2024 7 08/08/2023 12 CREATININE (mg/dL) Date Value 01/23/2024 1.07 (H) 08/08/2023 0.92 EGFR (mL/min/1.73) Date Value 01/23/2024 74 08/08/2023 89 05/31/2020 111 05/31/2020 128 AST (IU/L) Date Value 01/23/2024 20 08/08/2023 31 ALT (IU/L) Date Value 01/23/2024 19 08/08/2023 45 (H) BILIRUBIN (mg/dL) Date Value 01/23/2024 0.3 08/08/2023 0.3 No results found for: URAMPHETQL, URCOCAINEQL, URTHCQL, UROPIATEQL, URETOHQL, URBUPRENQL, URBENZOQL, URMETHDQL Review of Systems Constitutional: Negative for appetite change. Cardiovascular: Positive for chest pain (per pt - sent message to PCP) and palpitations (per pt - sent message to PCP). Just with anxiety attacks; H/o the same PCP aware per him Gastrointestinal: Negative. Neurological: Negative for seizures. PD: denies noticing by either self or others (prev states shoulders; kind of like a tic; off and on; not new had that for a few years no change) Psychiatric/Behavioral: Positive for sleep disturbance (since surgery maybe an hour or two a night sleeping on my couch very uncomfortable, have to sleep in recliner; 1-2h; napping trying to avoid it; not restorative). Negative for hallucinations, homicidal ideas and suicidal ideas. The patient is not nervous/anxious (not too bad). Mental Status Exam Appearance is appropriate for circumstance. General Health is generally good. Eye Contact is good. Motor Activity is unremarkable. Speech is monotone. Affect is blunted (baseline). slight Reported Mood is anxious (primarily related to his coworker who is someone he has bad hx with)Depressed: less so than prior to starting Efffexor.. pretty good Thought Content is unremarkable. Thought Process is goal-directed and is linear. Perception is unremarkable. Attention is alert. Demeanor is appropriate for situation. Insight is appropriate. Judgement is appropriate. Orientation is fully oriented. Memory is grossly intact and not formally tested. Narrative: Reviewed OARRS report 01/23/2024 which reveals Adderall XR 10 mg #30 and clonazepam 1 mg #15 both last filled 12/31/23 Total visit time today, including time spent reviewing chart and/or consulting prior to or after appointment was 20 minutes. Greater than 50% of this time was spent providing counseling and care coordination around chief complaint, including any additional diagnoses listed above. Shared-decision making was made with consideration for patient specific factors. All patient's questions were answered and patient verbally confirms and understands plan of care. Diagnosis: 1. Schizoaffective disorder, bipolar type ([facility]) - venlafaxine XR (EFFEXOR XR) 150 mg 24 hr capsule; Take 1 Capsule by mouth once daily with breakfast Dispense: 30 Capsule; Refill: 1 - QUEtiapine (SEROQUEL) 300 mg tablet; Take 1 Tablet by mouth nightly at bedtime Dispense: 30 Tablet; Refill: 1 - mirtazapine (REMERON) 45 mg tablet; Take 1 Tablet by mouth nightly at bedtime Dispense: 30 Tablet; Refill: 1 - buPROPion XL (WELLBUTRIN XL) 150 mg 24 hr tablet; Take 1 Tablet by mouth daily. Dispense: 30 Tablet; Refill: 1 2. Attention deficit hyperactivity disorder (ADHD), predominantly inattentive type - dextroamphetamine-amphetamine (ADDERALL XR) 15 mg 24 hr capsule; Take 1 Capsule by mouth every morning for 30 days Dispense: 30 Capsule; Refill: 0 - buPROPion XL (WELLBUTRIN XL) 150 mg 24 hr tablet; Take 1 Tablet by mouth daily. Dispense: 30 Tablet; Refill: 1 3. PTSD (post-traumatic stress disorder) - prazosin (MINIPRESS) 1 mg capsule; Take 1 Capsule by mouth nightly at bedtime Dispense: 30 Capsule; Refill: 1 - venlafaxine XR (EFFEXOR XR) 150 mg 24 hr capsule; Take 1 Capsule by mouth once daily with breakfast Dispense: 30 Capsule; Refill: 1 - QUEtiapine (SEROQUEL) 300 mg tablet; Take 1 Tablet by mouth nightly at bedtime Dispense: 30 Tablet; Refill: 1 - mirtazapine (REMERON) 45 mg tablet; Take 1 Tablet by mouth nightly at bedtime Dispense: 30 Tablet; Refill: 1 - buPROPion XL (WELLBUTRIN XL) 150 mg 24 hr tablet; Take 1 Tablet by mouth daily. Dispense: 30 Tablet; Refill: 1 4. Generalized anxiety disorder - venlafaxine XR (EFFEXOR XR) 150 mg 24 hr capsule; Take 1 Capsule by mouth once daily with breakfast Dispense: 30 Capsule; Refill: 1 - QUEtiapine (SEROQUEL) 300 mg tablet; Take 1 Tablet by mouth nightly at bedtime Dispense: 30 Tablet; Refill: 1 - mirtazapine (REMERON) 45 mg tablet; Take 1 Tablet by mouth nightly at bedtime Dispense: 30 Tablet; Refill: 1 - clonazePAM (KLONOPIN) 1 mg tablet; Take 1 Tablet by mouth once daily as needed for anxiety Dispense: 15 Tablet; Refill: 0 5. Insomnia disorder, persistent, with mental disorder - QUEtiapine (SEROQUEL) 300 mg tablet; Take 1 Tablet by mouth nightly at bedtime Dispense: 30 Tablet; Refill: 1 Plan: Increase Adderall XR to 15 mg PO qam for ADHD Restart prazosin 1 mg po QHS for PTSD-related nightmares; pt was previously up to 5 mg with good efficacy but then had issues with hypotension Continue clonazepam 1 mg PO qd PRN for acute anxiety; will likely d/c as anxiety is primarily focused on one coworker and the clonazepam does not significantly alleviate it Continue Seroquel 200 mg PO qhs for schizoaffective/ depressive adjunctive tx Continue mirtazapine 45 mg PO qhs for depression/anxiety Continue Effexor XR 150 mg PO qam for depression/anxiety Continue Wellbutrin XL 150 mg PO qam for depression/ADHD Further medication changes will depend on client report of symptoms and tolerability RTC in 4 weeks Discussed benefits of [facility] pharmacy with patient today and strongly encouraged them to consider transferring prescriptions? yes Explained rationale for medication choices and discussed possible risks, benefits and alternative treatment with client (parent/guardian)? [x] Yes [] No Client/Guardian Response: [x] Understands Information [] Does Not Understand [] Agrees with Medication [] Refuses Medication documented in this encounter [facility] Phone: 01-23-2024 Miscellaneous Notes You might get an email asking you to complete a survey about your visit today. We hope you will take a few minutes and answer some questions about your experience. Your responses let us know what is working well and where we can improve. The email will come from [employer], which is the company that sends out our patient surveys. Thank you for your feedback and trusting us with your care. documented in this encounter [facility] Phone: 01-23-2024 History of Present illness Narrative Chief Complaint / HPI: Chief Complaint Patient presents with Gender Affirming Hormone Therapy Prescription Refill Request HPI Gender Affirming Hormone Therapy Problems Assessed, Plan, Orders & Medical Decision Making 1. Weight gain due to medication (Primary) Overview: Patient started in metformin in June and reports he has not lost any weight yet. Has also tried to continue to lower calories- cut out soda and is trying to eat better. Has been taking the metformin but does miss morning doses at times. 01/23/24 10/21/23 was at 288# pt is now at 244#. Pt is taking ozempic and topamax and feels that he is doing well on these medications. Pt would like to get to 200. Orders: - semaglutide (OZEMPIC) 1 mg/dose (4 mg/3 mL) pen injector; Inject 1 mg into the skin once a week, Disp-3 mL, R-3Please educate on proper storage. Store refrigerated 36F-46F before first use. May store at room temperature 59F-86F for up to 56 days. Do not freeze. e-Prescribing, Long-term Dispense: 3 mL; Refill: 3 2. Other migraine with status migrainosus, intractable Overview: Pt had covid about a month ago. He states that he has been struggling with vomiting and dizziness since. He states that he has a migraine that started a week ago. He has been to the ER a couple of times. He states that the one time they gave him benadryl, comazine, and toradol IV which helped for a couple of hours. 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 Pt had an US of the gallbladder as well. He states that he has been taking excedrin and IBU with little relief. He states that these usually work for him. The only new medication change is an increase of 10mg of his prozac. He is going to message ajit about that today. I don't think that would have such a significant effect but I told him that he can go back to his previous dose and message Ajit. 10/08/23 Pt states that he was finally able to get the nurtec with a manufacturers coupon. He states that the nurtec takes the edge off a little. He went to the Er again last week and was treated for a sinus infection. That didn't really seem to change the headaches. He was seen by Ajit a couple of weeks ago and he is going to get sleep study. The fiorcet seems to help pt sleep and get some slight relief as does the nurtec. He is still not able to work. He is on a 30 day EMY. He states that he gets dizzy He is taking the fiorcet BID Orders: - rimegepant (NURTEC ODT) disintegrating tablet; Take 75 mg by mouth every other day Do not repeat doses. Every other day as needed, Disp-8 Tablet, R-5 e-Prescribing Dispense: 8 Tablet; Refill: 5 3. Diarrhea, unspecified type - omeprazole (PRILOSEC) [address] capsule; Take 1 Capsule by mouth every morning before breakfast, Disp-30 Capsule, R-5 e-Prescribing Dispense: 30 Capsule; Refill: 5 4. Prediabetes Overview: Patient taking metformin, no associated [...] 30lbs. He also struggles with daily diarrhea Orders: - metFORMIN XR (GLUCOPHAGE-XR) 500 mg 24 hr tablet; Take 2 tablets by mouth once daily with breakfast, Disp-60 Tablet, R-5 e-Prescribing, Long-term Dispense: 60 Tablet; Refill: 5 - semaglutide (OZEMPIC) 1 mg/dose (4 mg/3 mL) pen injector; Inject 1 mg into the skin once a week, Disp-3 mL, R-3Please educate on proper storage. Store refrigerated 36F-46F before first use. May store at room temperature 59F-86F for up to 56 days. Do not freeze. e-Prescribing, Long-term Dispense: 3 mL; Refill: 3 5. Gender dysphoria Overview: On Testosterone since 05/2020 Mastectomy 10/16/22 12/25/22 Patient had top surgery with Dr. Estes 10/16/22, healing well. Has had follow-up with her already and patient is pleased with results. 01/23/24 Pt states that he is doing well with his T. Assessment & Plan: Stable RTC in 6m Orders: - testosterone cypionate (DEPO-TESTOSTERONE) 200 mg/mL injection; Inject 0.55mL into the muscle every 7 days, Disp-10 mL, R-2 e-Prescribing, Long-term Dispense: 10 mL; Refill: 2 - BLOOD COUNT COMPLETE AUTO&AUTO DIFRNTL WBC - COMPREHENSIVE METABOLIC PANEL - ASSAY OF TOTAL ESTRADIOL - ASSAY OF TESTOSTERONE TOTAL Depression Screening: PHQ2 Score (!) 3 at 01/21/2024 11:10 AM PHQ-9 Total Score (Auto Calculated) 9 at 01/21/2024 11:10 AM Depression Severity: Mild at 01/21/2024 11:10 AM Plan: Depression follow up provided: Counseling / education in visit BMI Readings from Last 3 Encounters: 01/23/24 37.13 kg/m 08/08/23 42.73 kg/m 07/27/23 43.33 kg/m BMI follow up plan for 18+: The patient was counseled regarding nutrition and physical activity BMI is not an accurate reflection of [...] well-being and mood. Tobacco Use and Intervention: Tobacco History Tobacco Use Smoking Status Every Day Current packs/day: 1.00 Types: Cigarettes Smokeless Tobacco Never Tobacco Comments 10/24: none in 2mos Ready to quit: Not Answered Counseling given: Not Answered Tobacco comments: 10/24: none in 2mos Plan: Tobacco Intervention: provided smoking cessation counseling Follow-up Instructions Return in about 3 months (around 04/24/2024). Future Appointments Date Time Provider Department Center 01/28/2024 2:30 PM Ajit Paulino APRN [facility] 04/24/2024 10:30 AM Andrew Turpin APRN,SURFACE [employer]Y BREATHING [facility] ROS & Physical Exam Review of Systems Constitutional: Negative. HENT: Negative. Eyes: Negative. Respiratory: Negative. Cardiovascular: Negative. Endocrine: Negative. Genitourinary: Negative. Allergic/Immunologic: Negative. Neurological: Negative. Hematological: Negative. Psychiatric/Behavioral: Negative. Physical Exam Vitals and nursing [...] equal, round, and reactive to light. Neck: Trachea: Trachea normal. No tracheal deviation. Cardiovascular: [...] breath sounds, wheezing, rhonchi or rales. Abdominal: Palpations: There is no hepatomegaly or splenomegaly. Musculoskeletal: General: No tenderness or deformity. Normal range of motion. Cervical back: Normal range of motion and neck supple. No erythema or rigidity. Lymphadenopathy: Cervical: No cervical adenopathy. Skin: General: Skin is warm and dry. Coloration: Skin is not pale. Findings: No abrasion, erythema or rash. Neurological: General: No focal deficit present. Mental Status: He is alert and oriented to person, place, and time. Motor: No tremor, atrophy, abnormal muscle tone or seizure activity. Gait: Gait normal. Psychiatric: Mood and Affect: Mood normal. Speech: Speech normal. Behavior: Behavior normal. Associated Problem(s): Gender dysphoria Stable RTC in 6m Images from the original note were not included. Rooming Note: Mil presents to [facility] today for No chief complaint on file. Since Last Visit? Been to an Urgent Care, ER or Hospital? n Seen any other providers / specialists? neuro Received any vaccines? n Had any tests, like a Xray, mammogram or colonoscopy? n Vaccines Recommended Today: Health Maintenance Due Topic Date Due Imm-Pneumococcal (1 of 2 - PCV) Never done Imm-Varicella (1 of 2 - 13+ 2-dose series) Never done [id number] (2022-) Never done ASQ To be completed annually on adolescents ages 18-24 No data to display SBIRT 01/21/2024 11:10 AM How many times in the past year have you had 4 or more drinks in a day? NONE How many times in the past year have you used a recreational drug or used a prescription medication for nonmedical reasons? NONE Little interest or pleasure in doing things Several days Feeling down, depressed or hopeless [include irritable if under 18] More than half the days PHQ2 Score (!) 3 Little interest or pleasure in doing things Several days Feeling down, depressed or hopeless [include irritable if under 18] More than half the days Trouble falling or staying asleep, or sleeping too much Several days Feeling tired or having little energy Several days Poor appetite or overeating Not at all Feeling bad about yourself - or that you are a failure or have let yourself or your family down Several days Trouble concentrating on things like school work, reading or watching TV? More than half the days Moving or speaking so slowly that other people could have noticed? Or the opposite - being so fidgety or restless that you have been moving around a lot more than usual Several days Thoughts you would be better off or of hurting yourself in some way Not at all If you checked off any problems, how difficult have these problems made it for you to do your work, take care of things at home, or get along with other people? Somewhat difficult PHQ-9 Total Score (Auto Calculated) 9 Depression Severity: Mild AUDIT Total Score (Auto Calculated) 2 at 07/25/2022 1:59 PM PHQ-9 Total Score (Auto Calculated) 9 at 01/21/2024 11:10 AM KULDEEP-7 11/08/2020 8:00 AM Feeling nervous, [...] Anxiety Health Maintenance Due Topic Date Due Imm-Pneumococcal (1 of 2 - PCV) Never done Chlamydia Screening Never done Gonorrhea Screening Never done Imm-Varicella (1 of 2 - 13+ 2-dose series) Never done HIV Screening Never done Annual Wellness Visit 05/18/2021 [id number] () Never done Relationship Safety Screening/Counseling 07/25/2023 Goals as of 01/23/2024 at 9:46 AM Diploma (pt-stated) Mil will work towards his diploma over the [...] use disorder Bipolar 2 disorder ([facility]) Gender dysphoria Attention deficit hyperactivity disorder (ADHD), predominantly inattentive type Pelvic pain History of suicide attempt S/P laparoscopic hysterectomy Obesity, Class III, BMI 40-49.9 (morbid obesity) ([facility]) Acne vulgaris Weight gain due to medication Abnormal movements Prediabetes Smoking Elevated liver enzymes Intractable migraine with status migrainosus HIV testing offered: dec STI testing offered: dec documented in this encounter [facility] Phone: 12-31-2023 History of Present illness Narrative Tele-Health Visit Statement [facility] The patient's identity was verified and they have verbally stated that they are currently in the [facility]. The risks, benefits, and alternatives of a realtime synchronous audiovisual consultation were discussed with the patient and/or their guardian and they have given their verbal consent to this tele-health visit. This visit took place via tele-health video visit Additional persons on the call: no one Electromechanic used/present: Not Applicable Chief Complaint Patient presents with Mood Disorder Follow Up Medication Management Objective Pt reports that he is doing about the same. 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 He reports that he broke out in hives and his skin was burning and his hair stood on end - he went into the kitchen and stood in the freezer. He took 2 hydroxyzine that he had left over from last year which he reports did not help at all; he did take Benadryl to help with the itching (of course hydroxyzine is a powerful antihistamine as well). 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 He has not noticed too much improvement on the Adderall XR as of yet - he has noticed no impact on anxiety, appetite or sleep. In fact he is sleeping through the night, about at least 8 hours. He notes that he is finding it easier to eat regularly, but is not sure if this is related to the Adderall or not. Only side effect he noticed is more sweating but that's okay, I sweat a lot at work anyway. Discussed raising the dose to 10 mg to see if it's effective. Discussed the appropriate use of clonazepam, sparingly and when nothing else works to treat anxiety. 12/03/23 f/u: Mil reports that he has been all right since we last talked; he has been sleeping much better. 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 He is now sleeping through the night for the first time in a long time. He has to reschedule with the MRI, because there were a lot of things going on financially. He has been back to work for about a month now and it's going pretty well, other than his motivation and energy and focus. He has tried Wellbutrin and Strattera with no success. He was on Adderall as a young teenager and reported that it was effective, but his step-mom didn't think so. Pt expresses concerns for ADHD. They endorse the following symptoms of inattention: fails to give close attention to detail or makes careless mistakes, had trouble holding attention to tasks, has difficulty organizing, avoids/dislikes tasks that requires sustained mental effort, is easily distracted, is often forgetful, and misplaces things necessary for daily activities. They endorse the following symptoms of hyperactivity and impulsivity: feels restless. Pt does have a prior diagnosis of ADHD and did undergo formal psychological testing. These symptoms were present prior to 11 years old. No SI; no nenita or psychosis. 12/03/23 Plan: Start Adderall XR 5 mg PO qam for ADHD CSA on file; will order UDS at later date Continue Seroquel 200 mg PO qhs for schizoaffective/ depressive adjunctive tx Continue mirtazapine 45 mg PO qhs for depression/anxiety Continue Effexor XR 150 mg PO qam for depression/anxiety Continue Wellbutrin XL 150 mg PO qam for depression/ADHD Further medication changes will depend on client report of symptoms and tolerability RTC in 4 weeks HPI Mil Toro is a 23 year old Adult here today for follow-up med management visit. Symptoms include sadness (worse since I've been stuck at home; go back next Sunday; before that was there, normal for me), decreased interest (not it; kind of been the same throughout), hopelessness, panic (handful, 4-5; 10m; out of nowhere talk to random somebody that I know), difficulty concentrating (yeah), increased fatigue (worse last couple weeks) and sleep disturbance (since surgery maybe an hour or two a night sleeping on my couch very uncomfortable, have to sleep in recliner; 1-2h; napping trying to avoid it; not restorative). Patient denies or there is no evidence of low self-esteem, guilt, nervousness/anxiousness (not too bad), inflated self-esteem, decreased need for sleep, euphoric mood, hallucinations, irritability, appetite change, suicidal ideas or homicidal ideas. Weight change: h/o disordered eating does weigh self. Onset of these symptoms was more than 1 year ago. Patient's report of symptoms since onset: unchanged. Symptoms occur constantly. The severity of symptoms is moderate. : 50h/w. Past treatments tried include: Medication therapy, which was effective. Psychotherapy treatment, which was effective ([facility] at [facility] see her next week). . Compliance with prior treatments has been good. Last KULDEEP-7 Kuldeep-7 Total (!) 16 at 11/08/2020 8:00 AM Last PHQ-9 PHQ-9 Total Score (Auto Calculated) 0 at 08/08/2023 11:02 AM HIV Care No results found for: CD4, COPIESML, HELPSUPP If client is HIV+, provider reviewed HIV care, Viral Load, and CD4: Not applicable AIMS 12/31/2023 2:00 PM 1. Muscles of facial expression none 2. [...] 0.3 07/27/2023 0.3 No results found for: URAMPHETQL, URCOCAINEQL, URTHCQL, UROPIATEQL, URETOHQL, URBUPRENQL, URBENZOQL, URMETHDQL Review of Systems Constitutional: Negative for appetite change. Cardiovascular: Positive for chest pain (per pt - sent message to PCP) and palpitations (per pt - sent message to PCP). Just with anxiety attacks; H/o the same PCP aware per him Gastrointestinal: Negative. Neurological: Negative for seizures. PD: denies noticing by either self or others (prev states shoulders; kind of like a tic; off and on; not new had that for a few years no change) Psychiatric/Behavioral: Positive for sleep disturbance (since surgery maybe an hour or two a night sleeping on my couch very uncomfortable, have to sleep in recliner; 1-2h; napping trying to avoid it; not restorative). Negative for hallucinations, homicidal ideas and suicidal ideas. The patient is not nervous/anxious (not too bad). Mental Status Exam Appearance is appropriate for circumstance. General Health is generally good. Eye Contact is good. Motor Activity is unremarkable. Speech is monotone. Affect is blunted (baseline). slight Reported Mood is anxiousDepressed: less so than prior to starting Efffexor.. pretty good Thought Content is unremarkable. Thought Process is goal-directed and is linear. Perception is unremarkable. Attention is alert. Demeanor is appropriate for situation. Insight is fair. Judgement is appropriate. Orientation is fully oriented. Memory is grossly intact and not formally tested. Narrative: Reviewed [place] report 12/27/2023 which reveals Adderall XR 5 mg #30 last filled 12/03/23. Total visit time today, including time spent reviewing chart and/or consulting prior to or after appointment was 29 minutes. Greater than 50% of this time was spent providing counseling and care coordination around chief complaint, including any additional diagnoses listed above. Shared-decision making was made with consideration for patient specific factors. All patient's questions were answered and patient verbally confirms and understands plan of care. Diagnosis: 1. Schizoaffective disorder, bipolar type ([facility]) - buPROPion XL (WELLBUTRIN XL) 150 mg 24 hr tablet; Take 1 Tablet by mouth daily. Dispense: 30 Tablet; Refill: 1 - mirtazapine (REMERON) 45 mg tablet; Take 1 Tablet by mouth nightly at bedtime Dispense: 30 Tablet; Refill: 1 - QUEtiapine (SEROQUEL) 300 mg tablet; Take 1 Tablet by mouth nightly at bedtime Dispense: 30 Tablet; Refill: 1 - venlafaxine XR (EFFEXOR XR) 150 mg 24 hr capsule; Take 1 Capsule by mouth once daily with breakfast Dispense: 30 Capsule; Refill: 1 2. Attention deficit hyperactivity disorder (ADHD), predominantly inattentive type - buPROPion XL (WELLBUTRIN XL) 150 mg 24 hr tablet; Take 1 Tablet by mouth daily. Dispense: 30 Tablet; Refill: 1 - dextroamphetamine-amphetamine (ADDERALL XR) 10 mg 24 hr capsule; Take 1 Capsule by mouth every morning for 30 days Dispense: 30 Capsule; Refill: 0 3. PTSD (post-traumatic stress disorder) - buPROPion XL (WELLBUTRIN XL) 150 mg 24 hr tablet; Take 1 Tablet by mouth daily. Dispense: 30 Tablet; Refill: 1 - mirtazapine (REMERON) 45 mg tablet; Take 1 Tablet by mouth nightly at bedtime Dispense: 30 Tablet; Refill: 1 - QUEtiapine (SEROQUEL) 300 mg tablet; Take 1 Tablet by mouth nightly at bedtime Dispense: 30 Tablet; Refill: 1 - venlafaxine XR (EFFEXOR XR) 150 mg 24 hr capsule; Take 1 Capsule by mouth once daily with breakfast Dispense: 30 Capsule; Refill: 1 4. Generalized anxiety disorder - mirtazapine (REMERON) 45 mg tablet; Take 1 Tablet by mouth nightly at bedtime Dispense: 30 Tablet; Refill: 1 - QUEtiapine (SEROQUEL) 300 mg tablet; Take 1 Tablet by mouth nightly at bedtime Dispense: 30 Tablet; Refill: 1 - venlafaxine XR (EFFEXOR XR) 150 mg 24 hr capsule; Take 1 Capsule by mouth once daily with breakfast Dispense: 30 Capsule; Refill: 1 - clonazePAM (KLONOPIN) 1 mg tablet; Take 1 Tablet by mouth once daily as needed for anxiety Dispense: 15 Tablet; Refill: 0 5. Insomnia disorder, persistent, with mental disorder - QUEtiapine (SEROQUEL) 300 mg tablet; Take 1 Tablet by mouth nightly at bedtime Dispense: 30 Tablet; Refill: 1 6. Therapeutic drug monitoring - TOXASSURE SELECT 12 (MEDWATCH) Plan: Increase Adderall XR to 10 mg PO qam for ADHD Add clonazepam 1 mg PO qd PRN for acute anxiety that is not controlled by any other measure; pt is aware to use sparingly and that I will not increase qty dispensed Ordered UDS Continue Seroquel 200 mg PO qhs for schizoaffective/ depressive adjunctive tx Continue mirtazapine 45 mg PO qhs for depression/anxiety Continue Effexor XR 150 mg PO qam for depression/anxiety Continue Wellbutrin XL 150 mg PO qam for depression/ADHD Further medication changes will depend on client report of symptoms and tolerability RTC in 4 weeks Discussed benefits of [facility] pharmacy with patient today and strongly encouraged them to consider transferring prescriptions? yes Explained rationale for medication choices and discussed possible risks, benefits and alternative treatment with client (parent/guardian)? [x] Yes [] No Client/Guardian Response: [x] Understands Information [] Does Not Understand [] Agrees with Medication [] Refuses Medication documented in this encounter [facility] Work Phone: 12-03-2023 History of Present illness Narrative Tele-Health Visit Statement [facility] The patient's identity was verified and they have verbally stated that they are currently in the [facility]. The risks, benefits, and alternatives of a realtime synchronous audiovisual consultation were discussed with the patient and/or their guardian and they have given their verbal consent to this tele-health visit. This visit took place via tele-health video visit Additional persons on the call: no one Electromechanic used/present: Not Applicable Chief Complaint Patient presents with Mood Disorder Follow Up Medication Management Objective Mil reports that he has been all right since we last talked; he has been sleeping much better. 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 He is now sleeping through the night for the first time in a long time. He has to reschedule with the MRI, because there were a lot of things going on financially. He has been back to work for about a month now and it's going pretty well, other than his motivation and energy and focus. He has tried Wellbutrin and Strattera with no success. He was on Adderall as a young teenager and reported that it was effective, but his step-mom didn't think so. Pt expresses concerns for ADHD. They endorse the following symptoms of inattention: fails to give close attention to detail or makes careless mistakes, had trouble holding attention to tasks, has difficulty organizing, avoids/dislikes tasks that requires sustained mental effort, is easily distracted, is often forgetful, and misplaces things necessary for daily activities. They endorse the following symptoms of hyperactivity and impulsivity: feels restless. Pt does have a prior diagnosis of ADHD and did undergo formal psychological testing. These symptoms were present prior to 11 years old. No SI; no nenita or psychosis. 10/22/23 f/u: Today, pt reports that he is doing all right and is finished stopping the fluoxetine and starting the venlafaxine. He says that his new therapist Ariadna told him that his anxiety scores (likely KULEDEP-7 or the like) have been exactly the same for the last 3 years. He is currently on a 30-day leave of absence from work; he plans to go back the weekend of 11/03. He continues to not sleep well. He now takes his nighttime meds at 7, 7:30, but he still doesn't fall asleep until 1 or 2 am. It's not making me tired anymore. He now states that he is getting maybe 2 hours of sleep per night, despite taking so many sedating medications. He is on board with switching to Seroquel, which he says he took when he was about 11 with good efficacy. He had previously reported that it caused SI but now he believes it was another medication. No SI; no nenita or psychosis. Still quit anxious. Appetite is poor, but he is also on Ozempic. 10/22/23 Plan: D/c Zyprexa; switch to Seroquel 200 mg PO qhs for schizoaffective/depressive adjunct and sleep Pt will call new Sleep Study clinic (I messaged him the phone number from [facility] specialist's note) about setting up sleep study Continue mirtazapine 45 mg PO qhs for depression/anxiety Increase Effexor XR to 150 mg PO qam for depression/anxiety Continue Wellbutrin XL 150 mg PO qam for depression/ADHD Further medication changes will depend on pt report of symptoms and tolerability RTC in 6 weeks HPI Mil Toro is a 23 year old Adult here today for follow-up med management visit. Symptoms include sadness (worse since I've been stuck at home; go back next Sunday; before that was there, normal for me), decreased interest (not it; kind of been the same throughout), hopelessness, panic (handful, 4-5; 10m; out of nowhere talk to random somebody that I know), difficulty concentrating (yeah), increased fatigue (worse last couple weeks) and sleep disturbance (since surgery maybe an hour or two a night sleeping on my couch very uncomfortable, have to sleep in recliner; 1-2h; napping trying to avoid it; not restorative). Patient denies or there is no evidence of low self-esteem, guilt, nervousness/anxiousness (not too bad), inflated self-esteem, decreased need for sleep, euphoric mood, hallucinations, irritability, appetite change, suicidal ideas or homicidal ideas. Weight change: h/o disordered eating does weigh self. Onset of these symptoms was more than 1 year ago. Patient's report of symptoms since onset: unchanged. Symptoms occur constantly. The severity of symptoms is moderate. : 50h/w. Past treatments tried include: Medication therapy, which was effective. Psychotherapy treatment, which was effective ([facility] see her next week). . Compliance with prior treatments has been good. Last KULDEEP-7 Kuldeep-7 Total (!) 16 at 11/08/2020 8:00 AM Last PHQ-9 PHQ-9 Total Score (Auto Calculated) 0 at 08/08/2023 11:02 AM HIV Care No results found for: CD4, COPIESML, HELPSUPP If client is HIV+, provider reviewed HIV care, Viral Load, and CD4: Not applicable AIMS 12/03/2023 2:00 PM 1. Muscles of facial expression none 2. [...] 0.3 07/27/2023 0.3 No results found for: URAMPHETQL, URCOCAINEQL, URTHCQL, UROPIATEQL, URETOHQL, URBUPRENQL, URBENZOQL, URMETHDQL Review of Systems Constitutional: Negative for appetite change. Cardiovascular: Positive for chest pain (per pt - sent message to PCP) and palpitations (per pt - sent message to PCP). Just with anxiety attacks; H/o the same PCP aware per him Gastrointestinal: Negative. Neurological: Negative for seizures. PD: denies noticing by either self or others (prev states shoulders; kind of like a tic; off and on; not new had that for a few years no change) Psychiatric/Behavioral: Positive for sleep disturbance (since surgery maybe an hour or two a night sleeping on my couch very uncomfortable, have to sleep in recliner; 1-2h; napping trying to avoid it; not restorative). Negative for hallucinations, homicidal ideas and suicidal ideas. The patient is not nervous/anxious (not too bad). Mental Status Exam Appearance is appropriate for circumstance. General Health is generally good. Eye Contact is good. Motor Activity is unremarkable. Speech is monotone. Affect is blunted (baseline). slight Reported Mood is neutral/euthymicDepressed: less so than prior to starting Efffexor.. pretty good Thought Content is unremarkable. Thought Process is goal-directed and is linear. Perception is unremarkable. Attention is alert. Demeanor is appropriate for situation. Insight is fair. Judgement is appropriate. Orientation is fully oriented. Memory is grossly intact and not formally tested. Narrative: Reviewed OARRS report 11/30/2023 which brings up no concerns or discrepancies. [...] 1. Schizoaffective disorder, bipolar type ([facility]) - venlafaxine XR (EFFEXOR XR) 150 mg 24 hr capsule; Take 1 Capsule by mouth once daily with breakfast Dispense: 30 Capsule; Refill: 1 - QUEtiapine (SEROQUEL) 300 mg tablet; Take 1 Tablet by mouth nightly at bedtime Dispense: 30 Tablet; Refill: 1 - mirtazapine (REMERON) 45 mg tablet; Take 1 Tablet by mouth nightly at bedtime Dispense: 30 Tablet; Refill: 1 - buPROPion XL (WELLBUTRIN XL) 150 mg 24 hr tablet; Take 1 Tablet by mouth daily. Dispense: 30 Tablet; Refill: 1 2. Attention deficit hyperactivity disorder (ADHD), predominantly inattentive type - dextroamphetamine-amphetamine (ADDERALL XR) 5 mg 24 hr capsule; Take 1 Capsule by mouth every morning for 30 days Dispense: 30 Capsule; Refill: 0 - buPROPion XL (WELLBUTRIN XL) 150 mg 24 hr tablet; Take 1 Tablet by mouth daily. Dispense: 30 Tablet; Refill: 1 3. PTSD (post-traumatic stress disorder) - venlafaxine XR (EFFEXOR XR) 150 mg 24 hr capsule; Take 1 Capsule by mouth once daily with breakfast Dispense: 30 Capsule; Refill: 1 - QUEtiapine (SEROQUEL) 300 mg tablet; Take 1 Tablet by mouth nightly at bedtime Dispense: 30 Tablet; Refill: 1 - mirtazapine (REMERON) 45 mg tablet; Take 1 Tablet by mouth nightly at bedtime Dispense: 30 Tablet; Refill: 1 - buPROPion XL (WELLBUTRIN XL) 150 mg 24 hr tablet; Take 1 Tablet by mouth daily. Dispense: 30 Tablet; Refill: 1 4. Generalized anxiety disorder - venlafaxine XR (EFFEXOR XR) 150 mg 24 hr capsule; Take 1 Capsule by mouth once daily with breakfast Dispense: 30 Capsule; Refill: 1 - QUEtiapine (SEROQUEL) 300 mg tablet; Take 1 Tablet by mouth nightly at bedtime Dispense: 30 Tablet; Refill: 1 - mirtazapine (REMERON) 45 mg tablet; Take 1 Tablet by mouth nightly at bedtime Dispense: 30 Tablet; Refill: 1 5. Insomnia disorder, persistent, with mental disorder - QUEtiapine (SEROQUEL) 300 mg tablet; Take 1 Tablet by mouth nightly at bedtime Dispense: 30 Tablet; Refill: 1 Plan: Start Adderall XR 5 mg PO qam for ADHD CSA on file; will order UDS at later date Continue Seroquel 200 mg PO qhs for schizoaffective/ depressive adjunctive tx Continue mirtazapine 45 mg PO qhs for depression/anxiety Continue Effexor XR 150 mg PO qam for depression/anxiet Continue Wellbutrin XL 150 mg PO qam for depression/ADHD Further medication changes will depend on client report of symptoms and tolerability RTC in 4 weeks Discussed benefits of [facility] pharmacy with patient today and strongly encouraged them to consider transferring prescriptions? yes Explained rationale for medication choices and discussed possible risks, benefits and alternative treatment with client (parent/guardian)? [x] Yes [] No Client/Guardian Response: [x] Understands Information [] Does Not Understand [] Agrees with Medication [] Refuses Medication documented in this encounter [facility] Work Phone: 10-30-2023 Note New Patient Visit [facility] Vickey Buchanan [address], [place] [phone] (office) Date of service: 10/30/2023 ID: Mil Toro, 23 y.o., female; : 2000 Chief Concerns and reason for consult: Mil Toro is a 23 y.o. trans male who comes for consultation regarding Migraine ( present. Constant the last 3 months and it has not went away. /I've been in and out of the hospital, been diagnosed with fatty tumor of the brain. Found this out 2-3 months ago.) . History of Present Illness: Ms. Toro has a history of headaches that reportedly were episodic previously but now has become constant. Starting in July 2023 when the patient had an episode of COVID, shortly after he had holoacranial headaches, (sometimes localized to the occipital region, sometimes in front) headaches that are throbbing in nature, and associated with photophobia and phonophobia. When the headaches are bad he sometimes gets black squiggly lines, and vertigo occasionally tinnitus. Sometimes the headache prevents him from sleeping. He reports that the constant headaches vary in intensity between 7-10/10. Unfortunately he has been taking [id number] as well as prescription pain medication includingfioricet, medrol dosepak, elatriptan, - currently on nurtec every other day and fioricet twice daily. He reports he has received migraine cocktails in the past, however he denies receiving steroids or Depakote. Previously he is to get episodic throbbing headaches associated photophobia and phonophobia approximately once a month. Position change: no Worsened with physical activity: Denies Worse with bending over: Unsure Worse with cough: Sometimes Relieving factors: None. Triggers: Unclear now constant. Menstrual Period involvement: Has had hysterectomy Family history of migraines: dad Degree of Functional Impairment: severe Current Use of Meds to Treat SCOTT: Abortive meds? fioricet, medrol dosepak, elatriptan, - currently on nurtec and fioricet Daily use? yes - has been taking OTC initially daily, along wih humberto. Now with fioricet bid and nurtec eevry other day Prophylactic meds? has never tried it Sleep: difficulty getting to sleep, difficulty staying asleep. No snoring, waking up gasping for air, Sleep length per night 3-4 hrs, Evaluated for sleep apnea before - no, but scheduled to see [facility] Mood: not feeling depressed Energy: does have low energy Stress: increased stress Fluids: yes Meals: occasional Exercise: Additional Relevant History: History of head/neck trauma? No ) fell down stairs at 4 History of head/neck surgery? no Use of meds that might worsen SCOTT's (nitrates, exogenous estrogens, Nifedipine)? No - but on testosterone Exposure to carbon monoxide? no Substance use: alcohol: rarely, illicit drugs: no, tobacco: 1 ppd, caffeine: not lately Neurological ROS: negative for - behavioral changes, bowel and bladder control changes, confusion, impaired coordination/balance, memory loss, numbness/tingling, seizures, speech problems, tremors, or weakness Review of Systems: Comments Neurological As above General/constitutional No fevers, weight change gained some, on ozempic now Skin No rash HEENT No diplopia, dysphagia, dizziness,hearing loss Cardiovascular No dyspnea or chest pain Respiratory No SOB Gastrointestinal No loss of bowel control Genitourinary No loss of bladder control Musculoskeletal No myalgias Psychiatric Anxiety, depression Endocrine No changes to hair or nails Hematologic No easy bruising or bleeding Past medical history: has a past medical history of Diabetes (HCC), Liver disease, Migraine, and Psychiatric disorder. Past surgical history: has no past surgical history on file. Social history: reports that she has been smoking cigarettes. She has been smoking an average of 1 pack per day. She has never used smokeless tobacco. She reports current alcohol use. She reports that she does not use drugs. Family history:family history is not on file. Medications: Current Outpatient Medications: buPROPion (WELLBUTRIN XL) 150 MG 24 hr tablet, Take 1 (one) tablet (150 mg total) by mouth daily ., Disp: , Rfl: bysyvyvdnt-fytbscwbelxiy-blzctrvt (FIORICET, ESGIC) 50-325-40 mg per capsule, Take 1 (one) capsule by mouth 2 (two) times a day ., Disp: , Rfl: doxycycline hyclate (VIBRAMYCIN) 100 MG capsule, Take 1 (one) capsule (100 mg total) by mouth daily ., Disp: , Rfl: metFORMIN (GLUCOPHAGE-XR) 500 MG 24 hr tablet, Take 2 (two) tablets (1,000 mg total) by mouth daily with breakfast ., Disp: , Rfl: mirtazapine (REMERON) 45 MG tablet, Take 1 (one) tablet (45 mg total) by mouth nightly ., Disp: , Rfl: Nurtec ODT 75 mg ODT, Dissolve 1 (one) tablet (75 mg total) on top of tongue every other day ., Disp: , Rfl: omeprazole (PRILOSEC) 40 MG capsule, T (more content not included)... [facility] 10-22-2023 History of Present illness Narrative Tele-Health Visit Statement [facility] The patient's identity was verified and they have verbally stated that they are currently in the [facility]. The risks, benefits, and alternatives of a realtime synchronous audiovisual consultation were discussed with the patient and/or their guardian and they have given their verbal consent to this tele-health visit. This visit took place via tele-health video visit Additional persons on the call: no one Electromechanic used/present: Not Applicable Chief Complaint Patient presents with Mood Disorder Follow Up Medication Management Objective Today, pt reports that he is doing all right and is finished stopping the fluoxetine and starting the venlafaxine. He says that his new therapist Ariadna told him that his anxiety scores (likely KULDEEP-7 or the like) have been exactly the same for the last 3 years. He is currently on a 30-day leave of absence from work; he plans to go back the weekend of 11/03. He continues to not sleep well. He now takes his nighttime meds at 7, 7:30, but he still doesn't fall asleep until 1 or 2 am. It's not making me tired anymore. He now states that he is getting maybe 2 hours of sleep per night, despite taking so many sedating medications. He is on board with switching to Seroquel, which he says he took when he was about 11 with good efficacy. He had previously reported that it caused SI but now he believes it was another medication. No SI; no nenita or psychosis. Still quit anxious. Appetite is poor, but he is also on Ozempic. 09/24/23 f/u: Today, Mil reports that he hasn't been the best. He reports that his depression and anxiety have been pretty bad and in addition he has been suffering from a migraine for the last 3 weeks. He is working with his PCP to treat this. He reports that he has had migraines every once in a while but since he had Covid 4-5 weeks ago it has been worse. 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 He reports that he has been really snappy since he was started on the Prozac (not reported before) and it got worse when it was increased to 40 mg. He describes this as every little thing pisses me off, it doesn't matter what it is. Of note, he no longer endorses SI today. He has been seeing a new therapist but he does not like them very much - [facility]; doesn't feel like it's a good fit for him so he plans to call and see if he can get someone else. He has not yet called to schedule with the sleep clinic and I encouraged him to do so. He said that he will. Reports only sleeping 3 hours per night and not taking naps during the day. He finished the IOP last Sunday and he has not been back to work yet but he has been in touch with them. He says that he has a fear of falling asleep, which is half of my sleeping problem. He also reports that the 45 mg of mirtazapine and 10 mg olanzapine are not sedating. He did notice improvement when he first started olanzapine but when increasing from 7.5 mg to 10 mg, he noticed no improvement. Okay with starting Effexor instead of Prozac; however, despite reporting previously that he had not been on it in the past (along with Cymbalta) he now states that he thinks he has probably been on both at some point but does not recall if they were effective or if he had ASE. Pt's affect remains blunted, which has not changed since I started seeing him 8 months ago, despite multiple med changes. Symptoms are starting to look more and more like Cluster B rather than psychosis; encouraged him to follow through with sleep study as well as ask for new therapist who specializes in trauma, as he is requesting. 09/24/23 Plan: Continue Zyprexa 10 mg PO qhs for schizoaffective/depressive adjunct (will likely lower dose at later date) Reduce fluoxetine to 20 mg PO qd for 2 weeks, then d/c Start venlafaxine Er 37.5 mg PO qam for 2 weeks, then increase to 75 mg PO qam for depression/anxiety Continue Wellbutrin XL 150 mg PO qam for depression/ADHD Schedule sleep study Call to get new therapist Further medication changes will depend on pt report of symptoms and tolerability RTC in 4 weeks HPI Mil Toro is a 23 year old Adult here today for follow-up med management visit. Symptoms include sadness (worse since I've been stuck at home; go back next Sunday; before that was there, normal for me), decreased interest (not it; kind of been the same throughout), hopelessness, panic (handful, 4-5; 10m; out of nowhere talk to random somebody that I know), difficulty concentrating (yeah), increased fatigue (worse last couple weeks) and sleep disturbance (since surgery maybe an hour or two a night sleeping on my couch very uncomfortable, have to sleep in recliner; 1-2h; napping trying to avoid it; not restorative). Patient denies or there is no evidence of low self-esteem, guilt, nervousness/anxiousness (not too bad), inflated self-esteem, decreased need for sleep, euphoric mood, hallucinations, irritability, appetite change, suicidal ideas or homicidal ideas. Weight change: h/o disordered eating does weigh self. Onset of these symptoms was more than 1 year ago. Patient's report of symptoms since onset: unchanged. Symptoms occur constantly. The severity of symptoms is moderate. : 50h/w. Past treatments tried include: Medication therapy, which was effective. Psychotherapy treatment, which was effective ([facility] see her next week). . Compliance with prior treatments has been good. Last KULDEEP-7 Kuldeep-7 Total (!) 16 at 11/08/2020 8:00 AM Last PHQ-9 PHQ-9 Total Score (Auto Calculated) 0 at 08/08/2023 11:02 AM HIV Care No results found for: CD4, COPIESML, HELPSUPP If client is HIV+, provider reviewed HIV care, Viral Load, and CD4: Not applicable AIMS 10/22/2023 2:00 PM 1. Muscles of facial expression none 2. [...] 0.3 07/27/2023 0.3 No results found for: URAMPHETQL, URCOCAINEQL, URTHCQL, UROPIATEQL, URETOHQL, URBUPRENQL, URBENZOQL, URMETHDQL Review of Systems Constitutional: Negative for appetite change. Cardiovascular: Positive for chest pain (per pt - sent message to PCP) and palpitations (per pt - sent message to PCP). Just with anxiety attacks; H/o the same PCP aware per him Gastrointestinal: Negative. Neurological: Negative for seizures. PD: denies noticing by either self or others (prev states shoulders; kind of like a tic; off and on; not new had that for a few years no change) Psychiatric/Behavioral: Positive for sleep disturbance (since surgery maybe an hour or two a night sleeping on my couch very uncomfortable, have to sleep in recliner; 1-2h; napping trying to avoid it; not restorative). Negative for hallucinations, homicidal ideas and suicidal ideas. The patient is not nervous/anxious (not too bad). Mental Status Exam Appearance is appropriate for circumstance. General Health is generally good. Eye Contact is good. Motor Activity is unremarkable. Speech is monotone. Affect is blunted (baseline). slight Reported Mood is depressed (less so than prior to starting Efffexor) and anxious. pretty good Thought Content has depressive cognitions. Thought Process is goal-directed and is linear. Perception is unremarkable. Attention is alert. Demeanor is appropriate for situation. Insight is fair. Judgement is appropriate. Orientation is fully oriented. Memory is grossly intact and not formally tested. Narrative: Reviewed OARRS report 10/19/2023 which brings up no concerns or discrepancies. Total visit time today, including time spent reviewing chart and/or consulting prior to or after appointment was 20 minutes. Greater than 50% of this time was spent providing counseling and care coordination around chief complaint, including any additional diagnoses listed above. Shared-decision making was made with consideration for patient specific factors. All patient's questions were answered and patient verbally confirms and understands plan of care. Diagnosis: 1. Schizoaffective disorder, bipolar type ([facility]) - QUEtiapine (SEROQUEL) 200 mg tablet; Take 1 Tablet by mouth nightly at bedtime Dispense: 30 Tablet; Refill: 1 - buPROPion XL (WELLBUTRIN XL) 150 mg 24 hr tablet; Take 1 Tablet by mouth daily. Dispense: 30 Tablet; Refill: 1 - venlafaxine XR (EFFEXOR XR) 150 mg 24 hr capsule; Take 1 Capsule by mouth once daily with breakfast Dispense: 30 Capsule; Refill: 1 - mirtazapine (REMERON) 45 mg tablet; Take 1 Tablet by mouth nightly at bedtime Dispense: 30 Tablet; Refill: 1 2. Attention deficit hyperactivity disorder (ADHD), predominantly inattentive type - buPROPion XL (WELLBUTRIN XL) 150 mg 24 hr tablet; Take 1 Tablet by mouth daily. Dispense: 30 Tablet; Refill: 1 3. PTSD (post-traumatic stress disorder) - QUEtiapine (SEROQUEL) 200 mg tablet; Take 1 Tablet by mouth nightly at bedtime Dispense: 30 Tablet; Refill: 1 - buPROPion XL (WELLBUTRIN XL) 150 mg 24 hr tablet; Take 1 Tablet by mouth daily. Dispense: 30 Tablet; Refill: 1 - venlafaxine XR (EFFEXOR XR) 150 mg 24 hr capsule; Take 1 Capsule by mouth once daily with breakfast Dispense: 30 Capsule; Refill: 1 - mirtazapine (REMERON) 45 mg tablet; Take 1 Tablet by mouth nightly at bedtime Dispense: 30 Tablet; Refill: 1 4. Generalized anxiety disorder - QUEtiapine (SEROQUEL) 200 mg tablet; Take 1 Tablet by mouth nightly at bedtime Dispense: 30 Tablet; Refill: 1 - venlafaxine XR (EFFEXOR XR) 150 mg 24 hr capsule; Take 1 Capsule by mouth once daily with breakfast Dispense: 30 Capsule; Refill: 1 - mirtazapine (REMERON) 45 mg tablet; Take 1 Tablet by mouth nightly at bedtime Dispense: 30 Tablet; Refill: 1 5. Insomnia disorder, persistent, with mental disorder - QUEtiapine (SEROQUEL) 200 mg tablet; Take 1 Tablet by mouth nightly at bedtime Dispense: 30 Tablet; Refill: 1 Plan: D/c Zyprexa; switch to Seroquel 200 mg PO qhs for schizoaffective/depressive adjunct and sleep Pt will call new Sleep Study clinic (I messaged him the phone number from global mobility specialist's note) about setting up sleep study Continue mirtazapine 45 mg PO qhs for depression/anxiety Increase Effexor XR to 150 mg PO qam for depression/anxiety Continue Wellbutrin XL 150 mg PO qam for depression/ADHD Further medication changes will depend on pt report of symptoms and tolerability RTC in 6 weeks Discussed benefits of [facility] pharmacy with patient today and strongly encouraged them to consider transferring prescriptions? yes Explained rationale for medication choices and discussed possible risks, benefits and alternative treatment with client (parent/guardian)? [x] Yes [] No Client/Guardian Response: [x] Understands Information [] Does Not Understand [] Agrees with Medication [] Refuses Medication documented in this encounter [facility] Work Phone: 10-08-2023 History of Present illness Narrative Associated Problem(s): Intractable migraine with status migrainosus I would like for him to start an allergy pill with a decongestant Continue fioracet until seen by neuro Chief Complaint / HPI: No chief complaint on file. HPI Problems Assessed, Plan, Orders & Medical Decision Making 1. Intractable chronic migraine with aura with status migrainosus (Primary) Overview: Pt had covid about a month ago. He states that he has been struggling with vomiting and dizziness since. He states that he has a migraine that started a week ago. He has been to the ER a couple of times. He states that the one time they gave him benadryl, comazine, and toradol IV which helped for a couple of hours. 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 Pt had an US of the gallbladder as well. He states that he has been taking excedrin and IBU with little relief. He states that these usually work for him. The only new medication change is an increase of 10mg of his prozac. He is going to message ajit about that today. I don't think that would have such a significant effect but I told him that he can go back to his previous dose and message Ajit. 10/08/23 Pt states that he was finally able to get the nurtec with a manufacturers coupon. He states that the nurtec takes the edge off a little. He went to the Er again last week and was treated for a sinus infection. That didn't really seem to change the headaches. He was seen by Ajit a couple of weeks ago and he is going to get sleep study. The fiorcet seems to help pt sleep and get some slight relief as does the nurtec. He is still not able to work. He is on a 30 day EMY. He states that he gets dizzy He is taking the fiorcet BID Assessment & Plan: I would like for him to start an allergy pill with a decongestant Continue fioracet until seen by neuro Orders: - wqphghvwqr-dwihfnrkwubbg-foib 50-325-40 mg per capsule; Take 1 Capsule by mouth 2 (two) times daily, Disp-60 Capsule, R-0 e-Prescribing Dispense: 60 Capsule; Refill: 0 2. Prediabetes Overview: Patient taking metformin, no [...] 30lbs. He also struggles with daily diarrhea Orders: - semaglutide (OZEMPIC) 0.25 mg or 0.5 mg (2 mg/3 mL) pen injector; INJECT 0.5 MG INTO THE SKIN ONCE A WEEK, Disp-3 mL, R-0 e-Prescribing, Long-term Dispense: 3 mL; Refill: 0 3. Obesity, Class III, BMI 40-49.9 (morbid obesity) ([facility]) Overview: Patient is trying to lose weight, states he had been good with diet but recently has not been eating healthy. Was started on strattera for ADHD at [facility]. Was not effective for ADHD but was helpful with weight loss, lost 20 pounds in that period while on it but regained that weight plus additional pounds after stopping it. Considering starting GLP-1. 08/25/22: patient contacted insurance and was informed that saxenda is approved under their insurance plan Orders: - semaglutide (OZEMPIC) 0.25 mg or 0.5 mg (2 mg/3 mL) pen injector; INJECT 0.5 MG INTO THE SKIN ONCE A WEEK, Disp-3 mL, R-0 e-Prescribing, Long-term Dispense: 3 mL; Refill: 0 BMI Readings from Last 3 Encounters: 08/08/23 42.73 kg/m 07/27/23 43.33 kg/m 12/25/22 39.08 kg/m BMI follow up plan for 18+: The patient was counseled regarding nutrition and physical activity BMI is not an accurate reflection of [...] and Intervention: History Smoking Status Every Day Types: Cigarettes Smokeless Tobacco Never Ready to quit: Not Answered Counseling given: Not Answered Tobacco comments: 10/24: none in 2mos Plan: Tobacco Intervention: provided smoking cessation counseling Future Appointments Date Time Provider Department Center 10/22/2023 2:00 PM Ajit Paulino APRN [facility] ROS & Physical Exam Review of Systems Constitutional: Negative. HENT: Negative. Negative for postnasal drip. Eyes: Negative. Respiratory: Negative. Negative for cough. Cardiovascular: Negative. Endocrine: Negative. Genitourinary: Negative. Allergic/Immunologic: Negative. Neurological: Positive for dizziness and headaches. Hematological: Negative. Physical Exam Vitals reviewed: limite d/t tele. Constitutional: General: He is not in acute distress. Appearance: Normal appearance. He is normal weight. HENT: Head: Normocephalic. Nose: Nose normal. Pulmonary: Effort: Pulmonary effort is normal. No respiratory distress. Musculoskeletal: General: Normal range of motion. Cervical back: Normal range of motion. Neurological: General: No focal deficit present. Mental Status: He is alert and oriented to person, place, and time. Mental status is at baseline. Psychiatric: Mood and Affect: Mood normal. Behavior: Behavior normal. documented in this encounter [facility] Work Phone: 09-24-2023 History of Present illness Narrative Tele-Health Visit Statement [facility] The patient's identity was verified and they have verbally stated that they are currently in the [facility]. The risks, benefits, and alternatives of a realtime synchronous audiovisual consultation were discussed with the patient and/or their guardian and they have given their verbal consent to this tele-health visit. This visit took place via tele-health video visit Additional persons on the call: no one Electromechanic used/present: Not Applicable Chief Complaint Patient presents with Medication Management Anxiety; Mood D/o Objective Today, Mil reports that he hasn't been the best. He reports that his depression and anxiety have been pretty bad and in addition he has been suffering from a migraine for the last 3 weeks. He is working with his PCP to treat this. He reports that he has had migraines every once in a while but since he had Covid 4-5 weeks ago it has been worse. 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 He reports that he has been really snappy since he was started on the Prozac (not reported before) and it got worse when it was increased to 40 mg. He describes this as every little thing pisses me off, it doesn't matter what it is. Of note, he no longer endorses SI today. He has been seeing a new therapist but he does not like them very much - [facility]; doesn't feel like it's a good fit for him so he plans to call and see if he can get someone else. He has not yet called to schedule with the sleep clinic and I encouraged him to do so. He said that he will. Reports only sleeping 3 hours per night and not taking naps during the day. He finished the IOP last Sunday and he has not been back to work yet but he has been in touch with them. He says that he has a fear of falling asleep, which is half of my sleeping problem. He also reports that the 45 mg of mirtazapine and 10 mg olanzapine are not sedating. He did notice improvement when he first started olanzapine but when increasing from 7.5 mg to 10 mg, he noticed no improvement. Okay with starting Effexor instead of Prozac; however, despite reporting previously that he had not been on it in the past (along with Cymbalta) he now states that he thinks he has probably been on both at some point but does not recall if they were effective or if he had ASE. Pt's affect remains blunted, which has not changed since I started seeing him 8 months ago, despite multiple med changes. Symptoms are starting to look more and more like Cluster B rather than psychosis; encouraged him to follow through with sleep study as well as ask for new therapist who specializes in trauma, as he is requesting. 09/06/23 f/u: Pt today reports that he has 2 [...] depression started at the time that his [facility] psychiatrist told him to stop taking the Wellbutrin. Explained that I do not normally make any changes while a pt is in [facility], both insurance generally won't cover the cost [...] am further increasing Prozac to 40 mg ([facility] already increased it to 30, but I see no reason not to have gone to 40) for MDD and KULDEEP. No SI, but PDW persists. No nenita or psychois. Advised pt that we can discuss benzos at next appt for rescue use only. 09/06/23 Plan: Increase Zyprexa to 10 mg PO qhs for Schizoaffective D/o Increase fluoxetine to 40 mg for MDD/KULDEEP Re-start Wellbutrin XL 150 [...] 15 pills for a one month supply HPI Mil Toro is a 23 year old Adult here today for follow-up med management visit. Symptoms include sadness (worse since I've been stuck at home; go back next Sunday; before that was there, normal for me), decreased interest (not it; kind of been the same throughout), hopelessness, panic (handful, 4-5; 10m; out of nowhere talk to random somebody that I know), difficulty concentrating (yeah), increased fatigue (worse last couple weeks) and sleep disturbance (since surgery maybe an hour or two a night sleeping on my couch very uncomfortable, have to sleep in recliner; 1-2h; napping trying to avoid it; not restorative). Patient denies or there is no evidence of low self-esteem, guilt, nervousness/anxiousness (not too bad), inflated self-esteem, decreased need for sleep, euphoric mood, hallucinations, irritability, appetite change, suicidal ideas or homicidal ideas. Weight change: h/o disordered eating does weigh self. Onset of these symptoms was more than 1 year ago. Patient's report of symptoms since onset: unchanged. Symptoms occur constantly. The severity of symptoms is moderate. : 50h/w. Past treatments tried include: Medication therapy, which was effective. Psychotherapy treatment, which was effective (Kelly at [facility] see her next week). . Compliance with prior treatments has been good. Last KULDEEP-7 Kuldeep-7 Total (!) 16 at 11/08/2020 8:00 AM Last PHQ-9 PHQ-9 Total Score (Auto Calculated) 0 at 08/08/2023 11:02 AM HIV Care No results found for: CD4, COPIESML, HELPSUPP If client is HIV+, provider reviewed HIV care, Viral Load, and CD4: Not applicable AIMS 09/24/2023 2:00 PM 1. Muscles of facial expression none 2. [...] 0.3 07/27/2023 0.3 No results found for: URAMPHETQL, URCOCAINEQL, URTHCQL, UROPIATEQL, URETOHQL, URBUPRENQL, URBENZOQL, URMETHDQL Review of Systems Constitutional: Negative for appetite change. Cardiovascular: Positive for chest pain (per pt - sent message to PCP) and palpitations (per pt - sent message to PCP). Just with anxiety attacks; H/o the same PCP aware per him Gastrointestinal: Negative. Neurological: Negative for seizures. PD: denies noticing by either self or others (prev states shoulders; kind of like a tic; off and on; not new had that for a few years no change) Psychiatric/Behavioral: Positive for sleep disturbance (since surgery maybe an hour or two a night sleeping on my couch very uncomfortable, have to sleep in recliner; 1-2h; napping trying to avoid it; not restorative). Negative for hallucinations, homicidal ideas and suicidal ideas. The patient is not nervous/anxious (not too bad). Mental Status Exam Appearance is appropriate for circumstance. General Health is generally good. Eye Contact is good. Motor Activity is unremarkable. Speech is monotone. Affect is blunted (baseline). slight Reported Mood is depressed and anxious. pretty good Thought Content has depressive cognitions. Suicidal Ideation: Passive SI, no plan/intent Thought Process is goal-directed and is linear. Perception is unremarkable. Attention is alert. Demeanor is appropriate for situation. Insight is fair. Judgement is appropriate. Orientation is fully oriented. Memory is grossly intact and not formally tested. Narrative: Reviewed OARRS report 09/21/2023 which brings up no concerns or discrepancies. Total visit time today, including time spent reviewing chart and/or consulting prior to or after appointment was 22 minutes. Greater than 50% of this time was spent providing counseling and care coordination around chief complaint, including any additional diagnoses listed above. Shared-decision making was made with consideration for patient specific factors. All patient's questions were answered and patient verbally confirms and understands plan of care. Diagnosis: 1. Schizoaffective disorder, bipolar type ([facility]) - buPROPion XL (WELLBUTRIN XL) 150 mg 24 hr tablet; Take 1 Tablet by mouth daily. Dispense: 30 Tablet; Refill: 0 - FLUoxetine (PROZAC) 20 mg capsule; Take 1 Capsule by mouth once daily for 2 weeks, then stop taking fluoxetine Dispense: 14 Capsule; Refill: 0 - venlafaxine XR (EFFEXOR XR) 37.5 mg 24 hr capsule; Take 1 Capsule by mouth once daily with breakfast for 14 days, THEN 2 Capsules once daily with breakfast for 16 days. Dispense: 46 Capsule; Refill: 0 - mirtazapine (REMERON) 45 [...] 30 Tablet; Refill: 0 - FLUoxetine (PROZAC) 20 mg capsule; Take 1 Capsule by mouth once daily for 2 weeks, then stop taking fluoxetine Dispense: 14 Capsule; Refill: 0 - venlafaxine XR (EFFEXOR XR) 37.5 mg 24 hr capsule; Take 1 Capsule by mouth once daily with breakfast for 14 days, THEN 2 Capsules once daily with breakfast for 16 days. Dispense: 46 Capsule; Refill: 0 - mirtazapine (REMERON) 45 mg tablet; Take 1 Tablet by mouth nightly at bedtime Dispense: 30 Tablet; Refill: 0 - OLANZapine (ZYPREXA) 10 mg tablet; Take 1 Tablet by mouth nightly at bedtime Dispense: 30 Tablet; Refill: 0 4. Insomnia disorder, persistent, with mental disorder 5. Generalized anxiety disorder - FLUoxetine (PROZAC) 20 mg capsule; Take 1 Capsule by mouth once daily for 2 weeks, then stop taking fluoxetine Dispense: 14 Capsule; Refill: 0 - venlafaxine XR (EFFEXOR XR) 37.5 mg 24 hr capsule; Take 1 Capsule by mouth once daily with breakfast for 14 days, THEN 2 Capsules once daily with breakfast for 16 days. Dispense: 46 Capsule; Refill: 0 - mirtazapine (REMERON) 45 mg tablet; Take 1 Tablet by mouth nightly at bedtime Dispense: 30 Tablet; Refill: 0 Psychotherapy Add-on Service Modality: Therapeutic communication Focus: Acknowledged pt's poor sleep and educated on the importance of following through with sleep study, focusing on the ways in which poor sleep exacerbates mood issues/anxiety Goal: Encouraged pt to call and scheduled sleep study DIONNE Plan: Continue Zyprexa 10 mg PO qhs for schizoaffective/depressive adjunct (will likely lower dose at later date) Reduce fluoxetine to 20 mg PO qd for 2 weeks, then d/c Start venlafaxine Er 37.5 mg PO qam for 2 weeks, then increase to 75 mg PO qam for depression/anxiety Continue Wellbutrin XL 150 mg PO qam for depression/ADHD Schedule sleep study Call to get new therapist Further medication changes will depend on pt report of symptoms and tolerability RTC in 4 weeks Discussed benefits of [facility] pharmacy with patient today and strongly encouraged them to consider transferring prescriptions? yes Explained rationale for medication choices and discussed possible risks, benefits and alternative treatment with client (parent/guardian)? [x] Yes [] No Client/Guardian Response: [x] Understands Information [] Does Not Understand [] Agrees with Medication [] Refuses Medication documented in this encounter [facility] Work Phone: 09-14-2023 History of Present illness Narrative Associated Problem(s): Intractable migraine with status migrainosus Our plan is to try to stop this headache cycle Sumatriptan Medrol dose pack This could be related to the COVID still, in which it should start to improve. I would like to hear back from the pt next week We will also do a neuro referral Try to stay hydrated Chief Complaint / HPI: No chief complaint on file. HPI Problems Assessed, Plan, Orders & Medical Decision Making 1. Other migraine with status migrainosus, intractable (Primary) Overview: Pt had covid about a month ago. He states that he has been struggling with vomiting and dizziness since. He states that he has a migraine that started a week ago. He has been to the ER a couple of times. He states that the one time they gave him benadryl, comazine, and toradol IV which helped for a couple of hours. 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 Pt had an US of the gallbladder as well. He states that he has been taking excedrin and IBU with little relief. He states that these usually work for him. The only new medication change is an increase of 10mg of his prozac. He is going to message ajit about that today. I don't think that would have such a significant effect but I told him that he can go back to his previous dose and message Ajit. Assessment & Plan: Our plan is to try to stop this headache cycle Sumatriptan Medrol dose pack This could be related to the COVID still, in which it should start to improve. I would like to hear back from the pt next week We will also do a neuro referral Try to stay hydrated Orders: - REFERRAL TO NEUROLOGY - SUMAtriptan succinate (IMITREX) 50 mg tablet; Take 1 Tablet by mouth 1 (one) time as needed for migraine for up to 1 dose, Disp-9 Tablet, R-2 e-Prescribing, Long-term Dispense: 9 Tablet; Refill: 2 - methylPREDNISolone (MEDROL DOSPAK) 4 mg tablet pack; Take per package inserte-Prescribing, Disp-1 Packet, R-0 Dispense: 1 Packet; Refill: 0 BMI Readings from Last 3 Encounters: 08/08/23 42.73 kg/m 07/27/23 43.33 kg/m 12/25/22 39.08 kg/m BMI follow up plan for 18+: The patient was counseled regarding nutrition and physical activity BMI is not an accurate reflection of [...] Future Appointments Date Time Provider Department Center 09/24/2023 2:00 PM Ajit Paulino APRN [facility] 10/19/2023 11:30 AM Andrew Turpin APRN, CNP [facility] ROS & Physical Exam Review of Systems Constitutional: Negative. Negative for fever. HENT: Negative. Eyes: Positive for photophobia and visual disturbance. Respiratory: Negative. Cardiovascular: Negative. Gastrointestinal: Positive for nausea and vomiting. Endocrine: Negative. Genitourinary: Negative. Musculoskeletal: Negative. Skin: Negative. Allergic/Immunologic: Negative. Neurological: Positive for dizziness, light-headedness and headaches. Negative for seizures and speech difficulty. Hematological: Negative. Physical Exam Vitals reviewed: limited d/t tele. Constitutional: General: He is not in acute distress. Appearance: Normal appearance. He is normal weight. He is not ill-appearing. HENT: Head: Normocephalic and atraumatic. Nose: Nose normal. Pulmonary: Effort: Pulmonary effort is normal. No respiratory distress. Musculoskeletal: General: Normal range of motion. Cervical back: Normal range of motion and neck supple. Neurological: General: No focal deficit present. Mental Status: He is alert and oriented to person, place, and time. Psychiatric: Mood and Affect: Mood normal. Behavior: Behavior normal. documented in this encounter [facility] Work Phone: 09-06-2023 History of Present illness Narrative Tele-Health Visit Statement [facility] The patient's identity was verified and they have verbally stated that they are currently in the [facility]. The risks, benefits, and alternatives of a realtime synchronous audiovisual consultation were discussed with the patient and/or their guardian and they have given their verbal consent to this tele-health visit. This visit took place via tele-health video visit Additional persons on the call: no one Electromechanic used/present: Not Applicable Chief Complaint Patient presents [...] had already told him this prior to [facility] beginning. He verbalizes understanding. He says that [...] depression started at the time that his [facility] psychiatrist told him to stop taking the [...] start IOP, so he has enrolled at [facility], which will be M,T and R from [...] since we spoke last. Also denies SI. 1/2/24 Plan: Increase Zyprexa to 7.5 mg PO qhs for schizoaffective d/o D/c Doxepin (pt ran out and has not noticed any difference when not taking it) Start fluoxetine 20 mg PO qam for anxiety/depression Continue all other meds as prescribed Pt to start IOP through [facility] tomorrow, which will last from 6 to [...] tolerability RTC when pt completes IOP HPI Mil Toro is a 23 year old Adult here today for follow-up med management visit. Symptoms include sadness (worse since I've been stuck at home; go back next Sunday; before that was there, normal for me), decreased interest (not it; kind of been the same throughout), hopelessness, panic (handful, 4-5; 10m; out of nowhere talk to random somebody that I know), difficulty concentrating (yeah), increased fatigue (worse last couple weeks) and sleep disturbance (since surgery maybe an hour or two a night sleeping on my couch very uncomfortable, have to sleep in recliner; 1-2h; napping trying to avoid it; not restorative). Patient denies or there is no evidence of low self-esteem, guilt, nervousness/anxiousness (not too bad), inflated self-esteem, decreased need for sleep, euphoric mood, hallucinations, irritability, appetite change, suicidal ideas or homicidal ideas. Weight change: h/o disordered eating does weigh self.: 50h/w. Past treatments tried include: Psychotherapy: Kelly at [facility] see her next week . Compliance with prior treatments has been good. Last KULDEEP-7 Kuldeep-7 Total (!) 16 at 11/08/2020 8:00 AM Last PHQ-9 PHQ-9 Total Score (Auto Calculated) 0 at 08/08/2023 11:02 AM HIV Care No results found for: CD4, [...] 0.3 07/27/2023 0.3 No results found for: URAMPHETQL, URCOCAINEQL, URTHCQL, UROPIATEQL, URETOHQL, URBUPRENQL, URBENZOQL, URMETHDQL Review of Systems Constitutional: Negative for appetite change. Cardiovascular: Positive for chest pain (per pt - sent message to PCP) and palpitations (per pt - sent message to PCP). Just with anxiety attacks; H/o the same PCP aware per him Gastrointestinal: Negative. Neurological: Negative for seizures. PD: denies noticing by either self or others (prev states shoulders; kind of like a tic; off and on; not new had that for a few years no change) Psychiatric/Behavioral: Positive for sleep disturbance (since surgery maybe an hour or two a night sleeping on my couch very uncomfortable, have to sleep in recliner; 1-2h; napping trying to avoid it; not restorative). Negative for hallucinations, homicidal ideas and suicidal ideas. The patient is not nervous/anxious (not too bad). Mental Status Exam Appearance is appropriate for [...] care. Diagnosis: 1. Schizoaffective disorder, bipolar type ([facility]) - buPROPion XL (WELLBUTRIN XL) 150 mg [...] a one month supply [facility] with patient today and strongly encouraged them to consider transferring prescriptions? yes Explained rationale for medication choices and discussed possible risks, benefits and alternative treatment with client (parent/guardian)? [x] Yes [] No Client/Guardian Response: [x] Understands Information [] Does Not Understand [] Agrees with Medication [] Refuses Medication documented in this encounter [facility] Work Phone: 09-04-2023 Hospital Discharge instructions Patient Education 09/04/2023 19:30:30 Diet for [...] you feel better and your symptoms ease. [phone] [employer]. [address] [place] [address]. All rights reserved. This information is not intended as a substitute for professional medical care. Always follow your healthcare professional's instructions. Follow Up Care 09/04/2023 16:15:35 With:MACY HUIZAR DO Address: [address] [place] [phone] When:2-4 days With:CORTNEY VERDE MD Address: [facility] [address] [phone] [phone] When:2-4 days With:Go to emergency room if symptoms worsen Address:Unknown When:2-4 days [facility] 09-04-2023 Note Discharge Instructions Thank you for allowing [facility] to assist you with your healthcare needs. The following is important discharge information regarding your hospital visit. Diagnosis from Today's Visit Vomiting Vomiting What to Do Next Instructions from Your Care Team No qualifying data available. Post Acute Orders No qualifying data available. You Need to Schedule the Following Appointments Follow Up with MACY HUIZAR DO When Within 2-4 days Where: [address] [place] [phone] Follow Up with CORTNEY VERDE MD When Within 2-4 days Where: [facility] [address] [address]- [phone] Follow Up with Go to emergency room [...] you feel better and your symptoms ease. [phone] [employer]. [address] [place] [address]. All rights reserved. This information is not intended as a substitute for professional medical care. Always follow your healthcare professional's instructions. Additional Information VACCINATE! IT SAVES LIVES! Members of the community who have not yet received the COVID-19 vaccine and would like to receive it can visit one of [facility] vaccine clinics. There are many vaccine clinic locations within the [facility]. For locations and available times, please visit [email or web address] It is important to note that some COVID mobile vaccine clinics are held outdoors and may be canceled in rainy or stormy conditions. To learn more about pediatric vaccinations (ages 5-11), we invite you to visit the [facility] webpage. [email or web address] To learn more about the COVID-19 vaccine, we invite you to visit the CDC website for a list of frequently asked questions. https://www.cdc.gov/coronavirus/2 019-ncov/vaccines/faq.html [facility] Patient Portal Access Instructions: Stay connected with your healthcare team and access your personal medical information anytime with the [facility] Patient Portal. If you would like a full copy of your medical records please contact the [facility] Medical Records Department Sunday through Sunday between 8a.m. and 4:30p.m. Please follow the directions below to access the portal: 1.Access the email account you provided upon registration to the [facility].2.Look for an invitation email from [facility].3.Open the email and access the invitation link: Accept Invitation to [facility]4.Fill in the required emerson to create your account. Sign into [email or web address] with your username and password that you [...] you will allow to register on the [facility] Patient Portal for access to your information. You can also access the [facility] Patient Portal on the [employer]. Simply click on Health Records under Health Data and then click on the [facility] logo. HOW TO SAFELY DISPOSE OF PRESCRIPTION [...] Call your local pharmacy or go to [email or web address] [email or web address]/[email or web address] to find one close to you.3.Make use of household items: Use cat litter or old coffee grounds to dispose medications if other options are not available. Mix your drugs with these household products, seal them in an airtight container and throw it into the garbage. Call [facility]: [phone] to be sure your drugs can be [...] been reviewed and explained to me and FLAVIA Osorio TYLER M understand my current condition and have read and understand these discharge instructions. I have received a written copy of the plan/instructions. If I have questions, I am aware that I should contact my doctor. Patient/Claim Adjuster Signature: Date/Time: Relationship to Patient: ____ Witness Name/Signature: Date/Time: [facility] 09-04-2023 Note ORIGINAL EXAMINATION: CT OF THE [...] Randolph Steinberg MD Electronically signed By Randolph Setinberg MD Dictated Date: 09/04/2023 7:01:27 PM Prelim Date: 09/04/2023 7:11:12 PM Sign Date: 09/04/2023 7:11:12 PM Ordering Provider: [facility] 09-02-2023 Note HNO ID: [id number] Author: DANIELLA PADRON PA-C Service: ? Author Type: Physician Auditing Control Clerk Type: Progress Notes Filed: 09/02/2023 14:55 Note Text: This note was created using [employer]. Subjective Kalen Toro is a 23 year old adult. HPI [...] TUBERCULIN SYRINGE 1 mL 25 gauge x 5 USE FOR WEEKLY SUBCUTANEOUS INJECTIONS omeprazole (PRILOSEC) [...] BLD MAGNUS Kessler (more content not included)... [facility] 09-02-2023 History of Present illness Narrative This note was created using NoteWriter. Subjective Kalen Toro is a 23 year old adult. HPI [...] Daniella Padron PA-C documented in this encounter [facility] 08-08-2023 History of Present illness Narrative Chief Complaint / HPI: Chief [...] III, BMI 40-49.9 (morbid obesity) ([facility]) Overview: Patient is trying to lose weight, states he had been good with diet but recently has not been eating healthy. Was started on strattera for ADHD at [facility]. Was not effective for ADHD but was [...] 12/25/22 Patient had top surgery with Dr. Estes 10/16/22, healing well. Has had follow-up with [...] Center 10/19/2023 11:30 AM Andrew Turpin APRN,[facility] ROS & Physical Exam Review of Systems [...] original note were not included. Rooming Note: Mil presents to [facility] today for Primary Care Medical Home (F/u [...] of 3 - 3-dose series) Never done Sgu-WVGWN-96 (1) Never done Imm-Varicella (1 of 2 [...] of 3 - 3-dose series) Never done Zpj-ONTRO-21 (1) Never done Imm-Varicella (1 of 2 - 2-dose childhood series) Never done Imm-Pneumococcal (1 - PCV) Never done Chlamydia Screening Never done Gonorrhea Screening Never done HIV Screening Never done Annual Wellness Visit 05/18/2021 Imm-Influenza (1) 03/02/2023 Alcohol and Drug Screen 07/02/2023 Relationship Safety Screening/Counseling 07/25/2023 Goals as of 08/08/2023 at 11:03 AM Diploma (pt-stated) Mil will work towards his diploma over the [...] use disorder Bipolar 2 disorder ([facility]) Gender dysphoria Attention deficit hyperactivity disorder (ADHD), predominantly inattentive type Pelvic pain History of suicide attempt S/P laparoscopic hysterectomy Obesity, Class III, BMI 40-49.9 (morbid obesity) ([facility]) Acne vulgaris Weight gain due to medication Abnormal movements Prediabetes Smoking STI testing offered: decline documented in this encounter [facility] Phone: 07-31-2023 History of Present illness Narrative Addended by: MARGARITA KELLY on: 07/31/2023 04:39 PM Modules accepted: Orders Associated Problem(s): Obesity, Class III, BMI 40-49.9 (morbid obesity) ([facility]) Assessment sub-optimally managed at this time and would like to discuss option Plan Referral Management per specialist Patient education Associated Problem(s): Gender dysphoria Images from the original note were not included. Gender Affirming Care - Follow-Up Visit: Name Mil Gender Identity transgender male Pronouns he 07/27/2023 [...] 12/25/22 Patient had top surgery with Dr. Estes 10/16/22, healing well. Has had follow-up with her already and patient is pleased with results. Assessment & Plan: Gender Affirming Care - Follow-Up Visit: Name Mil Gender Identity transgender male Pronouns he 07/27/2023 [...] syringe-needle U-100 1 mL 25 gauge x 5/8; Use for weekly subcutaneous injectionse-Prescribing, Disp-12 Each, [...] III, BMI 40-49.9 (morbid obesity) ([facility]) Overview: Patient is trying to lose weight, states he had been good with diet but recently has not been eating healthy. Was started on strattera for ADHD at [facility]. Was not effective for ADHD but was [...] Behavior is cooperative. documented in this encounter [facility] Work Phone: 07-31-2023 Miscellaneous Notes Mil I have looked at your labs and [...] Kelly APRN, CNP documented in this encounter [facility] Work Phone: 07-03-2023 History of Present illness Narrative Tele-Health Visit Statement [facility] The patient's identity was verified and they have verbally stated that they are currently in the [facility]. The risks, benefits, and alternatives of a realtime synchronous audiovisual consultation were discussed with the patient and/or their guardian and they have given their verbal consent to this tele-health visit. This visit took place via tele-health video visit Additional persons on the call: no one Electromechanic used/present: Not Applicable Chief Complaint Patient presents with Psychosis Mood Disorder Follow Up Medication Management Objective Per [facility], pt last filled a 30-d/s of Zyprexa [...] start IOP, so he has enrolled at [facility], which will be M,T and R from [...] since we spoke last. Also denies SI. 3 f/u: Review of past med trials: Elavil (switched to Remeron for d/t inefficacy), traz (ineffective), Strattera (suicidal thoughts), prazosin (nightmares - states he was taken off d/t low blood pressure causing him to pass out at work), Lamictal (rash), Latuda (wasn't effective); Klonopin (it's been a while, I can't remember why I stopped taking it), Vraylar (can't remember), Zoloft (SI) Celexa, (not sure), Lexapro (wasn't very effective, but I was very young when I took it), and Seroquel (SI). Buspar caused him to go manic for months, and it made me very mean, Abilify- helpful but pt reports woke up one day and it stopped working; gabapentin - ineffective Today he reports that [...] before attempting to add a new med. 3 Plan: Reduce olanzapine to 2.5 mg PO [...] as his work schedule changes frequently HPI Mil Toro is a 23 year old Adult here today for follow-up med management visit. Symptoms include sadness (worse since I've been stuck at home; go back next Sunday; before that was there, normal for me), decreased interest (not it; kind of been the same throughout), hopelessness, panic (handful, 4-5; 10m; out of nowhere talk to random somebody that I know), difficulty concentrating (yeah), increased fatigue (worse last couple weeks) and sleep disturbance (since surgery maybe an hour or two a night sleeping on my couch very uncomfortable, have to sleep in recliner; 1-2h; napping trying to avoid it; not restorative). Patient denies or there is no evidence of low self-esteem, guilt, nervousness/anxiousness (not too bad), inflated self-esteem, decreased need for sleep, euphoric mood, hallucinations, irritability, appetite change, suicidal ideas or homicidal ideas. Weight change: h/o disordered eating does weigh self.: 50h/w. Past treatments tried include: Psychotherapy: Kelly at [facility] see her next week . Compliance with prior treatments has been good. 11/08/2020 8:00 AM Kuldeep-7 Total (!) 16 Last PHQ-9 PHQ-9 Total Score (Auto Calculated) 0 at 05/17/2023 10:52 AM HIV Care No results found for: CD4, [...] 0.5 06/02/2022 0.3 No results found for: URAMPHETQL, URCOCAINEQL, URTHCQL, UROPIATEQL, URETOHQL, URBUPRENQL, URBENZOQL, URMETHDQL Review of Systems Constitutional: Negative for appetite change. Cardiovascular: Positive for chest pain (per pt - sent message to PCP) and palpitations (per pt - sent message to PCP). Just with anxiety attacks; H/o the same PCP aware per him Gastrointestinal: Negative. Neurological: PD: denies noticing by either self or others (prev states shoulders; kind of like a tic; off and on; not new had that for a few years no change) Psychiatric/Behavioral: Positive for sleep disturbance (since surgery maybe an hour or two a night sleeping on my couch very uncomfortable, have to sleep in recliner; 1-2h; napping trying to avoid it; not restorative). Negative for hallucinations, homicidal ideas and suicidal ideas. The patient is not nervous/anxious (not too bad). Mental Status Exam Appearance is appropriate for [...] care. Diagnosis: 1. Schizoaffective disorder, bipolar type ([facility]) - OLANZapine (ZYPREXA) 7.5 mg tablet; Take [...] as prescribed Pt to start IOP through [facility] tomorrow, which will last from 6 to 15 weeks; while in IOP, he will not be making appointments with me and will be seeing psych prescriber through [facility] Once pt is nearing end of IOP, advised him to send me documentation of current meds and schedule appt with me after he completes to avoid tx interruption Further medication changes will depend on pt report of symptoms and tolerability RTC when pt completes IOP Discussed benefits of [facility] pharmacy with patient today and strongly encouraged them to consider transferring prescriptions? yes Explained rationale for medication choices and discussed possible risks, benefits and alternative treatment with client (parent/guardian)? [x] Yes [] No Client/Guardian Response: [x] Understands Information [] Does Not Understand [] Agrees with Medication [] Refuses Medication documented in this encounter [facility] Phone: 06-11-2023 Note HNO ID: [id number] Author: Sowmya Vick PA Service: ? Author Type: Physician Auditing Control Clerk Type: Progress Notes Filed: 06/11/2023 4:29 PM Note Text: This note was created using [employer]. Subjective Kalen Toro is a 23 year old adult. HPI 23-year-old adult presents for sore throat, body aches x 3 days. Patient states they work at [employer] [facility]. He states that COVID and strep are going around the detention. Patient took a COVID test this morning [...] or keep do (more content not included)... [facility] 06-11-2023 Instructions Sowmya Vick PA - 06/11/2023 4:26 PM EST PHARYNGITIS [...] urine. Chest pain. documented in this encounter [facility] 06-11-2023 History of Present illness Narrative This note was created using [employer]. Subjective Kalen Toro is a 23 year old adult. HPI 23-year-old adult presents for sore throat, body aches x 3 days. Patient states they work at [employer] [facility]. He states that COVID and strep are going around the detention. Patient took a COVID test this morning [...] evaluation. MAGNUS Kent documented in this encounter [facility] 05-17-2023 History of Present illness Narrative Associated Problem(s): Gender dysphoria Images from the original note were not included. Gender Affirming Care - Follow-Up Visit: Name Mil Gender Identity transgender male Galdino bourgeois 05/17/2023 1:39 PM 12/25/2022 12:00 AM [facility] [...] H&H 09/19/2021: 15.0 06/02/2022: 15.5 09/28/2022: 15.6 / 09/19/2021: 45.2 06/02/2022: 46.8 09/28/2022: 47.0 Assessment: well managed at this time and stable / unchanged Plan: Continue same management plan Continue meds as previously prescribed Images from the original note were not included. Chief Complaint / HPI: Chief Complaint Patient presents with Primary Care Medical Home Testerone med refill HPI [facility]-Health [facility] The patient's identity was verified and they have verbally stated that they are currently in the [facility]. The risks, benefits, and alternatives of a realtime synchronous audiovisual consultation were discussed with the patient and/or their guardian and they have given their verbal consent to this tele-health visit. This visit took place via tele-health telephone visit Additional persons on the call: no one Electromechanic used/present: No Presents virtually (Telephone only as [...] get a day off and my schedule changes. He is out of his med (Testosterone) X 2 weeks. He had been having a lot of bleeding after his IM injections, and so, the previous provider advised him [...] 12/25/22 Patient had top surgery with Dr. Estes 10/16/22, healing well. Has had follow-up with her already and patient is pleased with results. Assessment & Plan: Gender Affirming Care - Follow-Up Visit: Name Mil Gender Identity transgender male Pronouns he 05/17/2023 [...] original note were not included. Rooming Note: [facility] [...] of 3 - 3-dose series) Never done Qep-ZTVSC-02 (1) Never done Imm-Varicella (1 of 2 [...] of 3 - 3-dose series) Never done Bys-PWRJD-68 (1) Never done Imm-Varicella (1 of 2 - 2-dose childhood series) Never done Imm-Pneumococcal (1 - PCV) Never done Chlamydia Screening Never done Gonorrhea Screening Never done HIV Screening Never done Annual Wellness Visit 05/18/2021 Imm-Influenza (1) 03/02/2023 Goals as of 05/17/2023 at 10:52 AM Diploma (pt-stated) Mil will work towards his diploma over the next 12 months. 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 [...] use disorder Bipolar 2 disorder ([facility]) Gender dysphoria Attention deficit hyperactivity disorder (ADHD), predominantly inattentive type Pelvic pain History of suicide attempt S/P laparoscopic hysterectomy Obesity, Class III, BMI 40-49.9 (morbid obesity) ([facility]) Acne vulgaris Weight gain due to medication Abnormal movements Prediabetes Smoking documented in this encounter [facility] Work Phone: 04-20-2023 History of Present illness Narrative Tele-Health Visit Statement [facility] The patient's identity was verified and they have verbally stated that they are currently in the [facility]. The risks, benefits, and alternatives of a realtime synchronous audiovisual consultation were discussed with the patient and/or their guardian and they have given their verbal consent to this tele-health visit. This visit took place via tele-health video visit Additional persons on the call: no one Electromechanic used/present: Not Applicable Chief Complaint Patient presents with Bipolar Disorder Follow Up Medication Management Objective Mil was last seen 2 1/2 weeks ago [...] a plan and no intent. Discussed the [employer] suicide hotline which he can access by calling or texting, and also advised that we have crisis counselors he can call to talk to MSpencer 8-5. Kelly made me switch to a new therapist bc she's booked out for months - he sees this new therapist 05/08. 04/03/23 f/u: Mil reports that he's doing all right. He [...] before he got that lasted 3 days (it usually lasts me a while); during this episode, he was very mean, [...] schedule f/u before that runs out HPI Mil Toro is a 23 year old Adult here today for follow-up med management visit. Symptoms include sadness (worse since I've been stuck at home; go back next Sunday; before that was there, normal for me), decreased interest (not it; kind of been the same throughout), hopelessness, panic (handful, 4-5; 10m; out of nowhere talk to random somebody that I know), difficulty concentrating (yeah), increased fatigue (worse last couple weeks) and sleep disturbance (since surgery maybe an hour or two a night sleeping on my couch very uncomfortable, have to sleep in recliner; 1-2h; napping trying to avoid it; not restorative). Patient denies or there is no evidence of low self-esteem, guilt, nervousness/anxiousness (not too bad), inflated self-esteem, decreased need for sleep, euphoric mood, hallucinations, irritability, appetite change, suicidal ideas or homicidal ideas. Weight change: h/o disordered eating does weigh self.: 50h/w. Past treatments tried include: Psychotherapy: Kelly at [facility] see her next week . Compliance with [...] 0.5 06/02/2022 0.3 No results found for: [id number], [id number], WCPU949, DRUGID, ADDTOXSERUM, ADDTOXURINE, [id number] Review of Systems Constitutional: Negative for appetite change. Cardiovascular: Positive for chest pain (per pt - sent message to PCP) and palpitations (per pt - sent message to PCP). Just with anxiety attacks; H/o the same PCP aware per him Gastrointestinal: Negative. Neurological: PD: denies noticing by either self or others (prev states shoulders; kind of like a tic; off and on; not new had that for a few years no change) Psychiatric/Behavioral: Positive for sleep disturbance (since surgery maybe an hour or two a night sleeping on my couch very uncomfortable, have to sleep in recliner; 1-2h; napping trying to avoid it; not restorative). Negative for hallucinations, homicidal ideas and suicidal ideas. The patient is not nervous/anxious (not too bad). Mental Status Exam Appearance is appropriate for [...] care. Diagnosis: 1. R/o Bipolar 2 disorder (HCC-CMS) - OLANZapine (ZYPREXA) 10 mg tablet; [...] RTC in 4 days [facility] with patient today and strongly encouraged them to consider transferring prescriptions? no, patient does not live near an [facility] pharmacy and needs to start new med alex Explained rationale for medication choices and discussed possible risks, benefits and alternative treatment with client (parent/guardian)? [x] Yes [] No Client/Guardian Response: [x] Understands Information [] Does Not Understand [] Agrees with Medication [] Refuses Medication documented in this encounter [facility] Phone: 02-15-2023 Hospital Discharge instructions Patient Education 02/14/2023 22:55:05 Chest Pain, [...] Swelling, pain, or redness in one leg 8820-3135 [employer]. [address] [place] [address], [place] [address]. All rights reserved. This information is not [...] with primary care provider Address:Unknown When:2-[facility] Discharge Instructions Thank you for allowing [facility] to assist you with your healthcare needs. [...] may report side effects to FDA at 4-371-JFZ-6104. What other drugs will affect nabumetone? Ask [...] drugs may affect nabumetone, including prescription and bmrs-lzq-cshflhd medicines, vitamins, and herbal products. Not all [...] to ensure that the information provided by [employer]. ('[employer]') is accurate, up-to-date, and complete, but no guarantee is made to that effect. Drug information contained herein may be time sensitive. [employer] information has been compiled for use by healthcare practitioners and consumers in the [place] and therefore [employer] does not warrant that uses outside of the [place] are appropriate, unless specifically indicated otherwise. [employer]'s drug information does not endorse drugs, diagnose patients or recommend therapy. [employer] drug information is an informational resource designed [...] effective or appropriate for any given patient. [facility] does not assume any responsibility for any aspect of healthcare administered with the aid of information [facility] provides. The information contained herein is not intended to cover all possible uses, directions, precautions, warnings, drug interactions, allergic reactions, or adverse effects. If you have questions about the drugs you are taking, check with your doctor, nurse or pharmacist. Copyright 3039-6042 [employer]. Version: 13.02. Revision Date: 07/21/2020. Education Materials [...] Swelling, pain, or redness in one leg 0725-8922 [employer]. [address] [place] [address]. All rights reserved. This information is not [...] to receive it can visit one of [facility] vaccine clinics. There are many vaccine clinic locations within the [facility]. For locations and available times, please visit [email or web address] [email or web address] It is important to note that some COVID mobile vaccine clinics are held outdoors and may be canceled in rainy or stormy conditions. To learn more about pediatric vaccinations (ages 5-11), we invite you to visit the [employer] webpage. https://www.seasonax GmbHs.org/pa [email or web address]-Vialy-Hzurbpztvkv-Freque uqie-Ewyav-Cxcumeikx.html To learn more about the COVID-19 vaccine, we invite you to visit the CDC website for a list of frequently asked questions. https://www.cdc.gov/coronavirus/2 019-ncov/vaccines/faq.html [facility] Patient Portal Access Instructions: Stay connected with your healthcare team and access your personal medical information anytime with the [facility] Patient Portal. If you would like a full copy of your medical records please contact the [facility] Medical Records Department Sunday through Sunday between 8a.m. and 4:30p.m. Please follow the directions below to access the portal: 1.Access the email account you provided upon registration to the hospital.2.Look for an invitation email from [facility].3.Open the email and access the invitation link: Accept Invitation to [facility].Fill in the required emerson to create your account. Sign into [email or web address] with your username and password that you [...] you will allow to register on the [facility] Patient Portal for access to your information. You can also access the [facility] Patient Portal on the [employer]. Simply click on Health Records under Health Data and then click on the [employer] logo. HOW TO SAFELY DISPOSE OF PRESCRIPTION [...] Call your local pharmacy or go to http://1World Online.Uniplaces/8P6Jw1c to find one close to you.3.Make use of household items: Use cat litter or old coffee grounds to dispose medications if other options are not available. Mix your drugs with these household products, seal them in an airtight container and throw it into the garbage. Call [facility]: [phone] to be sure your drugs can be [...] been reviewed and explained to me and I,MIL TORO understand my current condition and have read and understand these discharge instructions. I have received a written copy of the plan/instructions. If I have questions, I am aware that I should contact my doctor. Patient/Claim Adjuster Signature: Date/Time: Relationship to Patient: ____ Witness Name/Signature: Date/Time: [facility] 02-14-2023 Note ORIGINAL EXAMINATION: CTA OF THE [...] 02/14/2023 10:52:07 PM Ordering Provider: MAINE AQUINO [facility] 02-14-2023 Note ORIGINAL EXAMINATION: ONE XRAY VIEW [...] 02/14/2023 10:56:39 PM Ordering Provider: MAINE AQUINO [facility] 02-14-2023 Note Sinus tachycardia Atrial premature complex Electronic Signature: MAINE AQUINO MD 02/14/2023 20:21:34 [facility] 02-13-2023 History of Present illness Narrative Tele-Health Visit Statement [facility] The patient's identity was verified and they have verbally stated that they are currently in the state [facility]. The risks, benefits, and alternatives of a realtime synchronous audiovisual consultation were discussed with the patient and/or their guardian and they have given their verbal consent to this tele-health visit. This visit took place via tele-health video visit Additional persons on the call: no one Electromechanic used/present: Not Applicable Chief Complaint Patient presents [...] well. He continues to see Kelly at [facility]; hasn't seen her in a month but [...] this. He reports that his ADHD is terrible; he is very hyper and irritable. He [...] f/u: Pt has previously been seen by counter dish carrier Silvia Lynch APRN, but requested a transfer to a different psych provider. Pt is vague regarding why he wanted to transfer, stating that he just wasn't doing well enough. He just had his top surgery through Dr. Estes a few months ago and reports that [...] Remeron for d/t inefficacy), traz (ineffective), Strattera (suicidal thoughts), prazosin (nightmares - states he was taken off d/t low blood pressure causing him to pass out at work), Lamictal (rash), Latuda (wasn't effective); Klonopin (it's been a while, I can't remember why I stopped taking it), Vraylar (can't remember), Zoloft (SI) Celexa, (not sure), Lexapro (wasn't very effective, but I was very young when I took it), and Seroquel (SI). Buspar caused him to [...] kids. He is currently in therapy with [facility] in [place] with Douglas, going once per week, and he reports that it has been helpful for him. 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 He reports that he struggles with suicidal ideation, pretty bad, I always think that I would be better off, like in the back of my head. Description is more consistent with PDW than SI. He reports that he has friends he can talk to as well as his fiancee, in addition to his therapist at [facility]. He reports that his mother is schizophrenic, and he and his therapist have thought that he might be schizoaffective. He says this started worsening when he was , having hallucinations and delusions. VH: bugs (the other day I swore I saw a spider on my face), I see people standing around me sometimes; AH: it sounds like a hundred voices all at once and it's non-stop; this is what causes his anxiety/panic attacks [...] which is yet to be released) JAYLEN Toro is a 22 year old Adult here today for follow-up med management visit. Symptoms include sadness (worse since I've been stuck at home; go back next Sunday; before that was there, normal for me), decreased interest (not it; kind of been the same throughout), hopelessness, panic (handful, 4-5; 10m; out of nowhere talk to random somebody that I know), difficulty concentrating (yeah), increased fatigue (worse last couple weeks) and sleep disturbance (since surgery maybe an hour or two a night sleeping on my couch very uncomfortable, have to sleep in recliner; 1-2h; napping trying to avoid it; not restorative). Patient denies or there is no evidence of low self-esteem, guilt, nervousness/anxiousness (not too bad), inflated self-esteem, decreased need for sleep, euphoric mood, hallucinations, irritability, appetite change, suicidal ideas or homicidal ideas. Weight change: h/o disordered eating does weigh self.: 50h/w. Past treatments tried include: Psychotherapy: Kelly at [facility] see her next week . Compliance with [...] sent message to PCP). Just with anxiety attacks; H/o the same PCP aware per him Gastrointestinal: Negative. Neurological: PD: denies noticing by either self or others (prev states shoulders; kind of like a tic; off and on; not new had that for a few years no change) Psychiatric/Behavioral: Positive for sleep disturbance (since surgery maybe an hour or two a night sleeping on my couch very uncomfortable, have to sleep in recliner; 1-2h; napping trying to avoid it; not restorative). Negative for hallucinations, homicidal ideas and suicidal ideas. The patient is not nervous/anxious (not too bad). Mental Status Exam Appearance is appropriate for [...] Diagnosis: 1. Bipolar 2 disorder ([facility]) - ARIPiprazole (ABILIFY) 15 mg tablet; Take [...] 2. Schizoaffective disorder, bipolar type ([facility]) - ARIPiprazole (ABILIFY) 15 mg tablet; Take [...] 1 5. R/o Schizoaffective disorder, bipolar type ([facility]) - ARIPiprazole (ABILIFY) 15 mg tablet; Take [...] [] Refuses Medication documented in this encounter [facility] Work Phone: 01-11-2023 History of Present illness Narrative Tele-Health Visit Statement [facility] The patient's identity was verified and they have verbally stated that they are currently in the [facility]. The risks, benefits, and alternatives of a realtime synchronous audiovisual consultation were discussed with the patient and/or their guardian and they have given their verbal consent to this tele-health visit. This visit took place via tele-health video visit Additional persons on the call: no one Electromechanic used/present: Not Applicable Chief Complaint Patient presents with Anxiety Follow Up Medication Management Transfer from Silvia Lynch APRN Objective Pt has previously been seen by counter dish carrier Silvia Lynch APRN, but requested a transfer to a different psych provider. Pt is vague regarding why he wanted to transfer, stating that he just wasn't doing well enough. He just had his top surgery through Dr. Estes a few months ago and reports that [...] Remeron for d/t inefficacy), traz (ineffective), Strattera (suicidal thoughts), prazosin (nightmares - states he was taken off d/t low blood pressure causing him to pass out at work), Lamictal (rash), Latuda (wasn't effective); Klonopin (it's been a while, I can't remember why I stopped taking it), Vraylar (can't remember), Zoloft (SI) Celexa, (not sure), Lexapro (wasn't very effective, but I was very young when I took it), and Seroquel (SI). Buspar caused him to [...] kids. He is currently in therapy with [facility] in [place] with Douglas, going once per week, and he reports that it has been helpful for him. 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 He reports that he struggles with suicidal ideation, pretty bad, I always think that I would be better off, like in the back of my head. Description is more consistent with PDW than SI. He reports that he has friends he can talk to as well as his fiancee, in addition to his therapist at [facility]. He reports that his mother is schizophrenic, and he and his therapist have thought that he might be schizoaffective. He says this started worsening when he was , having hallucinations and delusions. VH: bugs (the other day I swore I saw a spider on my face), I see people standing around me sometimes; AH: it sounds like a hundred voices all at once and it's non-stop; this is what causes his anxiety/panic attacks [...] a nightmare, in which case it's difficult. 3 f/u with Silvia Lynch APRN: Client is a 22 yo trans man presenting for f/u. SGA MONITORING: Started: 08/2020 (was on Abilify, then Latuda, now Abilify again) Last metabolic screening: WNL, 08/2022 BP readin/82, 08/2022 Most recent weight: #266, 08/2022 Earliest weight: #254, 05/2020 Any inc?: >5.11% (already on metformin, being managed by PC) 3 Plan from Silvia Lynch APRN: Will re-up [...] Follow-up to be scheduled by client. JAYLEN Mil Toro is a 22 year old Adult here today for follow-up med management visit. Symptoms include sadness (worse since I've been stuck at home; go back next Sunday; before that was there, normal for me), decreased interest (not it; kind of been the same throughout), hopelessness, panic (handful, 4-5; 10m; out of nowhere talk to random somebody that I know), difficulty concentrating (yeah), increased fatigue (worse last couple weeks) and sleep disturbance (since surgery maybe an hour or two a night sleeping on my couch very uncomfortable, have to sleep in recliner; 1-2h; napping trying to avoid it; not restorative). Patient denies or there is no evidence of low self-esteem, guilt, nervousness/anxiousness (not too bad), inflated self-esteem, decreased need for sleep, euphoric mood, hallucinations, irritability, appetite change, suicidal ideas or homicidal ideas. Weight change: h/o disordered eating does weigh self.: 50h/w. Past treatments tried include: Psychotherapy: Kelly at [facility] see her next week . Compliance with [...] chest pain and palpitations. Just with anxiety attacks; H/o the same PCP aware per him Gastrointestinal: Negative. Neurological: PD: denies noticing by either self or others (prev states shoulders; kind of like a tic; off and on; not new had that for a few years no change) Psychiatric/Behavioral: Positive for sleep disturbance (since surgery maybe an hour or two a night sleeping on my couch very uncomfortable, have to sleep in recliner; 1-2h; napping trying to avoid it; not restorative). Negative for hallucinations, homicidal ideas and suicidal ideas. The patient is not nervous/anxious (not too bad). Mental Status Exam Appearance is appropriate for [...] Diagnosis: 1. Bipolar 2 disorder ([facility]) - buPROPion HCL (WELLBUTRIN XL) 300 mg [...] 1 2. R/o Schizoaffective disorder, bipolar type ([facility]) - buPROPion HCL (WELLBUTRIN XL) 300 mg [...] [] Refuses Medication documented in this encounter [facility] Phone: 11-30-2022 History of Present illness Narrative Phlebotomy Technician attempted contact with patient for follow-up on DCM related concern(s), as recommended by PCP. PT did not answer attempt, Phlebotomy Technician sent iDiDiDt message to schedule another phone call. documented in this encounter [facility] Phone: 10-24-2022 History of Present illness Narrative Tele-Health Visit Statement [facility] The patient's identity was verified and they have verbally stated that they are currently in the [facility]. The risks, benefits, and alternatives of a realtime synchronous audiovisual consultation were discussed with the patient and/or their guardian and they have given their verbal consent to this tele-health visit. This visit took place via tele-health video visit Additional persons on the call: no one Electromechanic used/present: Not Applicable Kalen Toro Current Outpatient Medications on File Prior to [...] visit. Others present: Client presents alone CC: f/u/sleepy all day long driving me crazy; kind [...] on metformin, being managed by PC) JAYLEN Toro is a 22 year old Adult here today for follow-up visit. Symptoms include sadness (worse since I've been stuck at home; go back next Sunday; before that was there, normal for me), decreased interest (not it; kind of been the same throughout), hopelessness, panic (handful, 4-5; 10m; out of nowhere talk to random somebody that I know), difficulty concentrating (yeah), increased fatigue (worse last couple weeks) and sleep disturbance (since surgery maybe an hour or two a night sleeping on my couch very uncomfortable, have to sleep in recliner; 1-2h; napping trying to avoid it; not restorative). Patient denies or there is no evidence of low self-esteem, guilt, nervousness/anxiousness (not too bad), inflated self-esteem, decreased need for sleep, euphoric mood, hallucinations, irritability, appetite change, suicidal ideas or homicidal ideas. Weight change: h/o disordered eating does weigh self.: 50h/w. Past treatments tried include: Psychotherapy: Kelly at [facility] see her next week . Compliance with prior treatments has been good. 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 Just with anxiety attacks; H/o the same PCP aware per him Gastrointestinal: Negative. Neurological: PD: denies noticing by either self or others (prev states shoulders; kind of like a tic; off and on; not new had that for a few years no change) Psychiatric/Behavioral: Positive for sleep disturbance (since surgery maybe an hour or two a night sleeping on my couch very uncomfortable, have to sleep in recliner; 1-2h; napping trying to avoid it; not restorative). Negative for hallucinations, homicidal ideas and suicidal ideas. The patient is not nervous/anxious (not too bad). Mental Status Exam Appearance is appropriate for [...] sedation. Encouraged continued f/u in therapy. [facility], ED. Support and encouragement provided. Follow-up to [...] apart F31.81 Bipolar 2 disorder ([facility]) Plan : BUPROPION HCL XL 300 MG [...] weeks (around 11/21/2022). documented in this encounter [facility] Phone: 10-07-2022 Telephone encounter Note S: Patient called the clinical access center with complaint of pelvic pain. B: Not an established patient A: Patient currently at work, sitting down, got an extremely sharp pain in pelvic area and a little bleeding with it, bleeding started about 30 minutes, bright red spotting, saw TRUCK BODY BUILDER APPRENTICE a month ago and was referred to Dr. Jo on 09/21/22 due to pelvic pain and perineal pain, states pain has been getting worse since yesterday, now severe. R: Patient advised to contact TRUCK BODY BUILDER APPRENTICE or go to ED for evaluation. Reason for Disposition [1] SEVERE pelvic pain AND [2] present > 1 hour Protocols used: Pelvic Pain - [id number] T [facility] 10-07-2022 Miscellaneous Notes S: Patient called the clinical access center with complaint of pelvic pain. B: Not an established patient A: Patient currently at work, sitting down, got an extremely sharp pain in pelvic area and a little bleeding with it, bleeding started about 30 minutes, bright red spotting, saw TRUCK BODY BUILDER APPRENTICE a month ago and was referred to Dr. Jo on 09/21/22 due to pelvic pain and perineal pain, states pain has been getting worse since yesterday, now severe. R: Patient advised to contact TRUCK BODY BUILDER APPRENTICE or go to ED for evaluation. Reason for Disposition [1] SEVERE pelvic pain AND [2] present > 1 hour Protocols used: Pelvic Pain - [id number] documented in this encounter [facility] 10-02-2022 Miscellaneous Notes Associated Problem(s): Preop examination [...] Gender Affirming Care - Follow-Up Visit: Name Mil Gender Identity transgender male Pronouns he 10/02/2022 [...] pelvic pain specialist documented in this encounter [facility] Phone: 09-28-2022 History of Present illness Narrative Images from the original note were not included. Chief Complaint / HPI: Chief Complaint Patient presents with Pre-operative Exam HPI 22yo Transmale presents for pre-operative H&P. Patient is scheduled for the following: Surgery: Gender affirming double mastectomy Surgery Date:10/16/22 Surgeon: Dr. Estes Anesthesia: General -Past surgeries: Laparoscopic Hysterectomy, no [...] Gender Affirming Care - Follow-Up Visit: Name Mil Gender Identity transgender male Pronouns bk 10/02/2022 2:43 PM 09/28/2022 12:00 AM [facility] [...] Department Center 12/25/2022 3:30 PM MAGNUS Zhang [facility] ROS & Physical Exam Review of Systems [...] original note were not included. Rooming Note: Mil presents to [facility] today for No chief complaint on file. Since Last Visit? Been to an Urgent Care, ER or Hospital? No Seen any other providers / specialists? No Received any vaccines? No Had any tests, like a Xray, mammogram or colonoscopy? No Vaccines Recommended Today: Health Maintenance Due Topic Date Due Imm-Hepatitis B (1 of 3 - 3-dose series) Never done [id number] (1) Never done Imm-Pneumococcal (1 - PCV) [...] of 3 - 3-dose series) Never done [id number] (1) Never done Imm-Pneumococcal (1 - PCV) Never done Chlamydia Screening Never done Gonorrhea Screening Never done HIV Screening Never done Goals as of 09/28/2022 at 12:52 PM Diploma (pt-stated) Mil will work towards his diploma over the next 12 months. 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 [...] use disorder Bipolar 2 disorder ([facility]) Gender dysphoria Attention deficit hyperactivity disorder (ADHD), predominantly inattentive type History of suicide attempt S/P laparoscopic hysterectomy Obesity, Class III, BMI 40-49.9 (morbid obesity) ([facility]) Acne vulgaris Weight gain due to medication Abnormal movements Prediabetes HIV testing offered: Declines STI testing offered: Declines documented in this encounter [facility] Work Phone: 09-21-2022 History of Present illness Narrative Tele-Health Visit Statement [facility] The patient's identity was verified and they have verbally stated that they are currently in the [facility]. The risks, benefits, and alternatives of a realtime synchronous audiovisual consultation were discussed with the patient and/or their guardian and they have given their verbal consent to this tele-health visit. This visit took place via tele-health video visit Additional persons on the call: no one Electromechanic used/present: Not Applicable Kalen Toro Current Outpatient Medications on File Prior to [...] visit. Others present: Client presents alone CC: f/u/[re pharmacy issues] on pharmacy rody everything says [...] weight: #254, 05/2020 Any inc?: 5.11% HPI Mil Toro is a 22 year old adult here today for follow-up visit. Symptoms include decreased interest (don't have interest in doing anything; appears r/t stress), difficulty concentrating ([across the board] yeah; feel like it's just the same) and irritability (angry can't focus; just anything, trying to do something can't focus; denies outbursts). Patient denies or there is no evidence of sadness (pretty good I think; surgery date now looking forward to that; manageable), hopelessness, low self-esteem, guilt (not really), nervousness/anxiousness, panic, inflated self-esteem, decreased need for sleep, euphoric mood, hallucinations, appetite change, suicidal ideas, sleep disturbance (last two nights had trouble; nightmares constant; 2-3 hours, feel tired; 7-8h; restorative) or homicidal ideas. Weight change: h/o disordered eating does weigh self.: 50h/w. Past treatments tried include: Medication therapy, which was effective (Wellbutrin for sleep). Psychotherapy: [facility] at [facility] haven't been in two months haven't had time . Compliance with prior treatments has been good (had to start taking Wellbutrin at night making me extremely tired). 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 The patient [...] tested. Narrative: Labs ordered/to be completed at [facility] appt, aware to fast (to best [...] Diagnosis: F31.81 Bipolar 2 disorder ([facility]) (primary encounter diagnosis) Plan : ARIPIPRAZOLE 10 [...] weeks (around 10/19/2022). documented in this encounter [facility] Phone: 09-18-2022 History of Present illness Narrative Phlebotomy Technician attempted contact with patient for follow-up on DCM related concern(s), as recommended by PCP. PT did not answer attempt, Phlebotomy Technician left voice message requesting return phone call. documented in this encounter [facility] Phone: 08-30-2022 Miscellaneous Notes Associated Problem(s): Obesity, Class III, BMI 40-49.9 (morbid obesity) ([facility]) Discussed side effects and dosing of saxenda Advised to notify me of any issues documented in this encounter [facility] Phone: 08-25-2022 History of Present illness Narrative Chief Complaint / HPI: Chief Complaint Patient presents with Health Maintenance Meds for pre-diabetes Pt states Wellbutrin is causing fatigue, feels like a zombie HPI Patient presents for virtual visit. Problems Assessed, Plan, Orders & Medical Decision Making 1. Obesity, Class III, BMI 40-49.9 (morbid obesity) ([facility]) (Primary) Overview: Patient is trying to lose weight, states he had been good with diet but recently has not been eating healthy. Was started on strattera for ADHD at [facility]. Was not effective for ADHD but was [...] Department Center 09/28/2022 1:00 PM MAGNUS Zhang [facility] PC ROS & Physical Exam Review of [...] Judgment: Judgment normal. documented in this encounter [facility] Phone: 08-18-2022 History of Present illness Narrative CN called pt discussing transfer of dcm care from [facility] to [facility]. Cn and pt went over goals with pt providing updates. CN and pt discussed frequency of calls. documented in this encounter [facility] Phone: 08-14-2022 History of Present illness Narrative TELEHEALTH Identity: Pt. 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 Symptoms include sadness (almost every single day), decreased interest (gotten worse), hopelessness, feelings of worthlessness, guilt (a little bit yeah), difficulty concentrating and irritability (always been there a little bit; probably no change; denies outbursts). Patient denies or there is no evidence of nervousness/anxiousness (not really), panic, inflated self-esteem, decreased need for sleep, euphoric mood, hallucinations, appetite change (not really), suicidal ideas, sleep disturbance (great; denies issues/nightmares; 7-8h; restorative) or homicidal ideas. Weight change: h/o disordered eating does weigh self.: denies stressors. Past treatments tried include: Psychotherapy treatment, which was effective ([facility] stopped for about 2w; once a week or once every other week). . Compliance with prior treatments has been good (late on morning metformin). 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 Cardiovascular: Negative for chest pain and palpitations. H/o the same PCP not yet aware Gastrointestinal: Negative. Neurological: PD: N (prev states shoulders; kind of like a tic; off and on; not new had that for a few years no change) Psychiatric/Behavioral: Negative for hallucinations, homicidal ideas, sleep disturbance (great; denies issues/nightmares; 7-8h; restorative) and suicidal ideas. The patient is not nervous/anxious (not really). Mental Status Exam Appearance is appropriate for [...] Will re-assess met screen/VS closer to 08/2022. Amla Abililenore d/t 2d6 re-trialing Wellbutrin for D/focus; r/b reviewed including FDA black box, seizures, HTN, activation. Will conduct research r/t limiting shifts to 8h and send letter provided this is appropriate at earliest availability. Support and encouragement provided. Follow-up scheduled during visit. Diagnosis: F31.81 Bipolar 2 disorder ([facility]) (primary encounter diagnosis) Plan : ARIPIPRAZOLE 10 [...] weeks (around 09/11/2022). documented in this encounter [facility] Work Phone: 10-26-2021 History of Past i llness Narrative Problem Noted Date Resolved Date Nightmares 10/26/2021 [...] a hyst Will check hormone levels today [facility] Tender referral Medication management 10/20/2020 01/18/2022 Other insomnia [...] of this encounter (statuses as of 08/14/2022) [facility] Work Phone: [phone] History of Past illness Narrative* Problem Noted [...] a hyst Will check hormone levels today [facility] Tender referral Medication management 10/20/2020 01/18/2022 Other insomnia [...] of this encounter (statuses as of 08/18/2022) [facility] Phone: [phone] History of Past illness Narrative* Problem Noted [...] a hyst Will check hormone levels today [facility] Tender referral Medication management 10/20/2020 01/18/2022 Other insomnia [...] of this encounter (statuses as of 08/30/2022) [facility] Phone: [phone] History of Past illness Narrative* Problem Noted [...] a hyst Will check hormone levels today [facility] Tender referral Medication management 10/20/20202021 Other insomnia 09/14/2020 [...] of this encounter (statuses as of 09/18/2022) [facility] Work Phone: [phone]) [phone] History of Past illness Narrative* Problem Noted [...] a hyst Will check hormone levels today [facility] Tender referral Medication management 10/20/20202021 Other insomnia 09/14/2020 [...] of this encounter (statuses as of 09/21/2022) [facility] Phone: [phone] History of Past illness Narrative* Problem Noted [...] of this encounter (statuses as of 10/02/2022) [facility] Phone: [phone] History of Past illness Narrative* Problem Noted [...] of this encounter (statuses as of 10/24/2022) [facility] Phone: [phone] History of Past illness Narrative* Problem Noted [...] of this encounter (statuses as of 11/30/2022) [facility] Phone: [phone] History of Past illness Narrative* Problem Noted [...] of this encounter (statuses as of 01/11/2023) [facility] Phone: [phone] History of Past illness Narrative* Problem Noted [...] of this encounter (statuses as of 02/13/2023) [facility] Phone: [phone] History of Past illness Narrative* Problem Noted [...] of this encounter (statuses as of 04/20/2023) [facility] Phone: [phone] History of Past illness Narrative* Problem Noted [...] of this encounter (statuses as of 05/18/2023) [facility] Phone: [phone] History of Past illness Narrative* Problem Noted [...] of this encounter (statuses as of 07/03/2023) [facility] Phone: [phone] History of Past illness Narrative* Problem Noted [...] of this encounter (statuses as of 07/31/2023) [facility] Phone: [phone] History of Past illness Narrative* Problem Noted [...] of this encounter (statuses as of 08/08/2023) [facility] Phone: [phone] History of Past illness Narrative* Problem Noted [...] of this encounter (statuses as of 09/06/2023) [facility] Work Phone: [phone] History of Past illness Narrative* Problem Noted [...] as of this encounter (statuses as of 09/14/2023) [facility] Phone: [phone] History of Past illness Narrative* Problem Noted [...] as of this encounter (statuses as of 09/24/2023) [facility] Phone: [phone] History of Past illness Narrative* Problem Noted [...] as of this encounter (statuses as of 10/08/2023) [facility] Phone: [phone] History of Past illness Narrative* Problem Noted [...] as of this encounter (statuses as of 10/22/2023) [facility] Phone: [phone] History of Past illness Narrative* Problem Noted [...] as of this encounter (statuses as of 12/03/2023) [facility] Phone: [phone] History of Past illness Narrative* Problem Noted [...] as of this encounter (statuses as of 12/31/2023) [facility] Phone: [phone] History of Past illness Narrative* Problem Noted [...] as of this encounter (statuses as of 01/23/2024) [facility] Phone: [phone] History of Past illness Narrative* Problem Noted [...] as of this encounter (statuses as of 01/28/2024) [facility] Phone: [phone] History of Past illness Narrative* Problem Noted Date Diagnosed Date Resolved Date Nightmares 10/26/2021 01/18/2022 Assessment & Plan (10/26/2021 2:23 PM EDT): Having nightmares nightly Has woken up at [...] Medication management 10/20/20202021 Other insomnia 09/14/2020 11/08/2020 Assessment & Plan (09/14/2020 1:18 PM EDT): Has insomnia. Sleeping about 3 hours per night. Uses melatonin. Changing other medications today. Will see if getting better control of depression helps with insomnia. Has not tried vistaril before, and may help with sleep in the future. Depression 11/08/2020 Anxiety state 11/08/2020 documented as of this encounter (statuses as of 04/02/2024) [facility] Work Phone: [phone] History of Past illness Narrative* Problem Noted Date Diagnosed Date Resolved Date Nightmares 10/26/2021 01/18/2022 Assessment & Plan (10/26/2021 2:23 PM EDT): Having nightmares nightly Has woken up at [...] Medication management 10/20/20202021 Other insomnia 09/14/2020 11/08/2020 Assessment & Plan (09/14/2020 1:18 PM EDT): Has insomnia. Sleeping about 3 hours per night. Uses melatonin. Changing other medications today. Will see if getting better control of depression helps with insomnia. Has not tried vistaril before, and may help with sleep in the future. Depression 11/08/2020 Anxiety state 11/08/2020 documented as of this encounter (statuses as of 04/22/2024) [facility] Phone: [phone] History of Past illness Narrative* Problem Noted Date Diagnosed Date Resolved Date Nightmares 10/26/2021 01/18/2022 Assessment & Plan (10/26/2021 2:23 PM EDT): Having nightmares nightly Has woken up at [...] Medication management 10/20/20202021 Other insomnia 09/14/2020 11/08/2020 Assessment & Plan (09/14/2020 1:18 PM EDT): Has insomnia. Sleeping about 3 hours per night. Uses melatonin. Changing other medications today. Will see if getting better control of depression helps with insomnia. Has not tried vistaril before, and may help with sleep in the future. Depression 11/08/2020 Anxiety state 11/08/2020 documented as of this encounter (statuses as of 04/24/2024) [facility] Phone: [phone] History of Past illness Narrative* Problem Noted Date Diagnosed Date Resolved Date Nightmares 10/26/2021 01/18/2022 Assessment & Plan (10/26/2021 2:23 PM EDT): Having nightmares nightly Has woken up at [...] Medication management 10/20/20202021 Other insomnia 09/14/2020 11/08/2020 Assessment & Plan (09/14/2020 1:18 PM EDT): Has insomnia. Sleeping about 3 hours per night. Uses melatonin. Changing other medications today. Will see if getting better control of depression helps with insomnia. Has not tried vistaril before, and may help with sleep in the future. Depression 11/08/2020 Anxiety state 11/08/2020 documented as of this encounter (statuses as of 05/12/2024) [facility] Phone: [phone] History of Past illness Narrative* Problem Noted Date Diagnosed Date Resolved Date Nightmares 10/26/2021 01/18/2022 Assessment & Plan (10/26/2021 2:23 PM EDT): Having nightmares nightly Has woken up at [...] Medication management 10/20/20202021 Other insomnia 09/14/2020 11/08/2020 Assessment & Plan (09/14/2020 1:18 PM EDT): Has insomnia. Sleeping about 3 hours per night. Uses melatonin. Changing other medications today. Will see if getting better control of depression helps with insomnia. Has not tried vistaril before, and may help with sleep in the future. Depression 11/08/2020 Anxiety state 11/08/2020 documented as of this encounter (statuses as of 05/13/2024) [facility] Phone: [phone] History of Past illness Narrative* Problem Noted Date Diagnosed Date Resolved Date Nightmares 10/26/2021 01/18/2022 Assessment & Plan (10/26/2021 2:23 PM EDT): Having nightmares nightly Has woken up at [...] Medication management 10/20/20202021 Other insomnia 09/14/2020 11/08/2020 Assessment & Plan (09/14/2020 1:18 PM EDT): Has insomnia. Sleeping about 3 hours per night. Uses melatonin. Changing other medications today. Will see if getting better control of depression helps with insomnia. Has not tried vistaril before, and may help with sleep in the future. Depression 11/08/2020 Anxiety state 11/08/2020 documented as of this encounter (statuses as of 05/22/2024) [facility] Work Phone: [phone] History of Past illness Narrative* Problem Noted Date Diagnosed Date Resolved Date Nightmares 10/26/2021 01/18/2022 Assessment & Plan (10/26/2021 2:23 PM EDT): Having nightmares nightly Has woken up at [...] Medication management 10/20/20202021 Other insomnia 09/14/2020 11/08/2020 Assessment & Plan (09/14/2020 1:18 PM EDT): Has insomnia. Sleeping about 3 hours per night. Uses melatonin. Changing other medications today. Will see if getting better control of depression helps with insomnia. Has not tried vistaril before, and may help with sleep in the future. Depression 11/08/2020 Anxiety state 11/08/2020 documented as of this encounter (statuses as of 03/18/2024) [facility] Phone: [phone] History of Past illness Narrative* Problem Noted Date Diagnosed Date Resolved Date Nightmares 10/26/2021 01/18/2022 Assessment & Plan (10/26/2021 2:23 PM EDT): Having nightmares nightly Has woken up at [...] Medication management 10/20/20202021 Other insomnia 09/14/2020 11/08/2020 Assessment & Plan (09/14/2020 1:18 PM EDT): Has insomnia. Sleeping about 3 hours per night. Uses melatonin. Changing other medications today. Will see if getting better control of depression helps with insomnia. Has not tried vistaril before, and may help with sleep in the future. Depression 11/08/2020 Anxiety state 11/08/2020 documented as of this encounter (statuses as of 06/09/2024) [facility] Phone: [phone] History of Past illness Narrative* Problem Noted Date Diagnosed Date Resolved Date Nightmares 10/26/2021 01/18/2022 Assessment & Plan (10/26/2021 2:23 PM EDT): Having nightmares nightly Has woken up at [...] Medication management 10/20/20202021 Other insomnia 09/14/2020 11/08/2020 Assessment & Plan (09/14/2020 1:18 PM EDT): Has insomnia. Sleeping about 3 hours per night. Uses melatonin. Changing other medications today. Will see if getting better control of depression helps with insomnia. Has not tried vistaril before, and may help with sleep in the future. Depression 11/08/2020 Anxiety state 11/08/2020 documented as of this encounter (statuses as of 06/10/2024) [facility] Work Phone: [phone] History of Past illness Narrative* Problem Noted Date Diagnosed Date Resolved Date Nightmares 10/26/2021 01/18/2022 Assessment & Plan (10/26/2021 2:23 PM EDT): Having nightmares nightly Has woken up at [...] Medication management 10/20/20202021 Other insomnia 09/14/2020 11/08/2020 Assessment & Plan (09/14/2020 1:18 PM EDT): Has insomnia. Sleeping about 3 hours per night. Uses melatonin. Changing other medications today. Will see if getting better control of depression helps with insomnia. Has not tried vistaril before, and may help with sleep in the future. Depression 11/08/2020 Anxiety state 11/08/2020 documented as of this encounter (statuses as of 07/15/2024) [facility] Phone: [phone] History of Past illness Narrative* Problem Noted Date Diagnosed Date Resolved Date Nightmares 10/26/2021 01/18/2022 Assessment & Plan (10/26/2021 2:23 PM EDT): Having nightmares nightly Has woken up at [...] Medication management 10/20/20202021 Other insomnia 09/14/2020 11/08/2020 Assessment & Plan (09/14/2020 1:18 PM EDT): Has insomnia. Sleeping about 3 hours per night. Uses melatonin. Changing other medications today. Will see if getting better control of depression helps with insomnia. Has not tried vistaril before, and may help with sleep in the future. Depression 11/08/2020 Anxiety state 11/08/2020 documented as of this encounter (statuses as of 08/26/2024) [facility] Phone: [phone] History of Past illness Narrative* Problem Noted Date Diagnosed Date Resolved Date Nightmares 10/26/2021 01/18/2022 Assessment & Plan (10/26/2021 2:23 PM EDT): Having nightmares nightly Has woken up at [...] Medication management 10/20/20202021 Other insomnia 09/14/2020 11/08/2020 Assessment & Plan (09/14/2020 1:18 PM EDT): Has insomnia. Sleeping about 3 hours per night. Uses melatonin. Changing other medications today. Will see if getting better control of depression helps with insomnia. Has not tried vistaril before, and may help with sleep in the future. Depression 11/08/2020 Anxiety state 11/08/2020 documented as of this encounter (statuses as of 09/16/2024) [facility] Phone: [phone] History of Past illness Narrative* Problem Noted Date Diagnosed Date Resolved Date Nightmares 10/26/2021 01/18/2022 Assessment & Plan (10/26/2021 2:23 PM EDT): Having nightmares nightly Has woken up at [...] Medication management 10/20/20202021 Other insomnia 09/14/2020 11/08/2020 Assessment & Plan (09/14/2020 1:18 PM EDT): Has insomnia. Sleeping about 3 hours per night. Uses melatonin. Changing other medications today. Will see if getting better control of depression helps with insomnia. Has not tried vistaril before, and may help with sleep in the future. Depression 11/08/2020 Anxiety state 11/08/2020 documented as of this encounter (statuses as of 10/09/2024) [facility] Phone: [phone] History of Past illness Narrative* Problem Noted Date Diagnosed Date Resolved Date Nightmares 10/26/2021 01/18/2022 Assessment & Plan (10/26/2021 2:23 PM EDT): Having nightmares nightly Has woken up at [...] Medication management 10/20/20202021 Other insomnia 09/14/2020 11/08/2020 Assessment & Plan (09/14/2020 1:18 PM EDT): Has insomnia. Sleeping about 3 hours per night. Uses melatonin. Changing other medications today. Will see if getting better control of depression helps with insomnia. Has not tried vistaril before, and may help with sleep in the future. Depression 11/08/2020 Anxiety state 11/08/2020 documented as of this encounter (statuses as of 11/06/2024) [facility] Work Phone: [phone] History of Past illness Narrative* Problem Noted Date Diagnosed Date Resolved Date Nightmares 10/26/2021 01/18/2022 Assessment & Plan (10/26/2021 2:23 PM EDT): Having nightmares nightly Has woken up at [...] Medication management 10/20/20202021 Other insomnia 09/14/2020 11/08/2020 Assessment & Plan (09/14/2020 1:18 PM EDT): Has insomnia. Sleeping about 3 hours per night. Uses melatonin. Changing other medications today. Will see if getting better control of depression helps with insomnia. Has not tried vistaril before, and may help with sleep in the future. Depression 11/08/2020 Anxiety state 11/08/2020 documented as of this encounter (statuses as of 01/20/2025) [facility] Phone: [phone] History of Past illness Narrative* Problem Noted Date Diagnosed Date Resolved Date Nightmares 10/26/2021 01/18/2022 Assessment & Plan (10/26/2021 2:23 PM EDT): Having nightmares nightly Has woken up at [...] Medication management 10/20/20202021 Other insomnia 09/14/2020 11/08/2020 Assessment & Plan (09/14/2020 1:18 PM EDT): Has insomnia. Sleeping about 3 hours per night. Uses melatonin. Changing other medications today. Will see if getting better control of depression helps with insomnia. Has not tried vistaril before, and may help with sleep in the future. Depression 11/08/2020 Anxiety state 11/08/2020 documented as of this encounter (statuses as of 02/24/2025) [facility] Phone: [phone] History of Past illness Narrative* Problem Noted Date Diagnosed Date Resolved Date Nightmares 10/26/2021 01/18/2022 Assessment & Plan (10/26/2021 2:23 PM EDT): Having nightmares nightly Has woken up at [...] Medication management 10/20/20202021 Other insomnia 09/14/2020 11/08/2020 Assessment & Plan (09/14/2020 1:18 PM EDT): Has insomnia. Sleeping about 3 hours per night. Uses melatonin. Changing other medications today. Will see if getting better control of depression helps with insomnia. Has not tried vistaril before, and may help with sleep in the future. Depression 11/08/2020 Anxiety state 11/08/2020 documented as of this encounter (statuses as of 03/11/2025) [facility] Phone: [phone] History of Past illness Narrative* Problem Noted Date Diagnosed Date Resolved Date Nightmares 10/26/2021 01/18/2022 Assessment & Plan (10/26/2021 2:23 PM EDT): Having nightmares nightly Has woken up at [...] Medication management 10/20/20202021 Other insomnia 09/14/2020 11/08/2020 Assessment & Plan (09/14/2020 1:18 PM EDT): Has insomnia. Sleeping about 3 hours per night. Uses melatonin. Changing other medications today. Will see if getting better control of depression helps with insomnia. Has not tried vistaril before, and may help with sleep in the future. Depression 11/08/2020 Anxiety state 11/08/2020 documented as of this encounter (statuses as of 03/16/2025) [facility] Phone: [phone]) 583-821004-27-2022 History of Past illness Narrative* Problem Noted Date Diagnosed Date Resolved Date Nightmares 10/26/2021 01/18/2022 Assessment & Plan (10/26/2021 2:23 PM EDT): Having nightmares nightly Has woken up at [...] Medication management 10/20/20202021 Other insomnia 09/14/2020 11/08/2020 Assessment & Plan (09/14/2020 1:18 PM EDT): Has insomnia. Sleeping about 3 hours per night. Uses melatonin. Changing other medications today. Will see if getting better control of depression helps with insomnia. Has not tried vistaril before, and may help with sleep in the future. Depression 11/08/2020 Anxiety state 11/08/2020 documented as of this encounter (statuses as of 03/30/2025) [facility] Work Phone: [phone]) 127-645204-27-2022 History of Past illness Narrative* Problem Noted Date Diagnosed Date Resolved Date Nightmares 10/26/2021 01/18/2022 Assessment & Plan (10/26/2021 2:23 PM EDT): Having nightmares nightly Has woken up at [...] Medication management 10/20/20202021 Other insomnia 09/14/2020 11/08/2020 Assessment & Plan (09/14/2020 1:18 PM EDT): Has insomnia. Sleeping about 3 hours per night. Uses melatonin. Changing other medications today. Will see if getting better control of depression helps with insomnia. Has not tried vistaril before, and may help with sleep in the future. Depression 11/08/2020 Anxiety state 11/08/2020 documented as of this encounter (statuses as of 04/08/2025) [facility] Phone: [phone]) 177-477304-27-2022 History of Past illness Narrative* Problem Noted Date Diagnosed Date Resolved Date Nightmares 10/26/2021 01/18/2022 Assessment & Plan (10/26/2021 2:23 PM EDT): Having nightmares nightly Has woken up at [...] Medication management 10/20/20202021 Other insomnia 09/14/2020 11/08/2020 Assessment & Plan (09/14/2020 1:18 PM EDT): Has insomnia. Sleeping about 3 hours per night. Uses melatonin. Changing other medications today. Will see if getting better control of depression helps with insomnia. Has not tried vistaril before, and may help with sleep in the future. Depression 11/08/2020 Anxiety state 11/08/2020 documented as of this encounter (statuses as of 04/09/2025) [facility] Phone: [phone] 633-845904-27-2022 History of Past illness Narrative* Problem Noted Date Diagnosed Date Resolved Date Nightmares 10/26/2021 01/18/2022 Assessment & Plan (10/26/2021 2:23 PM EDT): Having nightmares nightly Has woken up at [...] Medication management 10/20/20202021 Other insomnia 09/14/2020 11/08/2020 Assessment & Plan (09/14/2020 1:18 PM EDT): Has insomnia. Sleeping about 3 hours per night. Uses melatonin. Changing other medications today. Will see if getting better control of depression helps with insomnia. Has not tried vistaril before, and may help with sleep in the future. Depression 11/08/2020 Anxiety state 11/08/2020 documented as of this encounter (statuses as of 04/24/2025) [facility] Phone: [phone]) 200-577204-27-2022 History of Past illness Narrative* Problem Noted Date Diagnosed Date Resolved Date Nightmares 10/26/2021 01/18/2022 Assessment & Plan (10/26/2021 2:23 PM EDT): Having nightmares nightly Has woken up at [...] Medication management 10/20/20202021 Other insomnia 09/14/2020 11/08/2020 Assessment & Plan (09/14/2020 1:18 PM EDT): Has insomnia. Sleeping about 3 hours per night. Uses melatonin. Changing other medications today. Will see if getting better control of depression helps with insomnia. Has not tried vistaril before, and may help with sleep in the future. Depression 11/08/2020 Anxiety state 11/08/2020 documented as of this encounter (statuses as of 04/27/2025) [facility] Phone: Evaluation + Plan note No data available for this section [facility] Evaluation noteNo assessment information available [facility] Work Phone: Evaluation note* Diagnosis Bipolar 2 disorder (HCC-CMS)- Primary Other bipolar disorders Attention deficit hyperactivity disorder (ADHD), predominantly inattentive type Weight gain due to medication Other symptoms concerning nutrition, metabolism, and development Abnormal movements Medication management Encounter for long-term (current) use of other medications PTSD (post-traumatic stress disorder) Posttraumatic stress disorder documented in this encounter [facility] Phone: Evaluation note* Diagnosis Obesity, Class III, BMI 40-49.9 (morbid obesity) ([facility]-CMS)- Primary Morbid obesity Prediabetes Other abnormal glucose documented in this encounter [facility] Phone: Evaluation note* Diagnosis Bipolar 2 disorder [...] of other medications documented in this encounter [facility] Phone: Evaluation note* Diagnosis Preop examination- Primary Preoperative examination, unspecified Gender dysphoria Gender identity disorder in children Prediabetes Other abnormal glucose Smoking Tobacco use disorder Weight gain due to medication Other symptoms concerning nutrition, metabolism, and development Acne vulgaris Other acne Pelvic pain Reserved for inherently not codable concepts WITHOUT codable children documented in this encounter [facility] Phone: Evaluation note* Diagnosis PTSD (post-traumatic stress disorder) Posttraumatic stress disorder Bipolar 2 disorder (HCC-CMS) Other bipolar disorders Attention deficit hyperactivity disorder (ADHD), predominantly inattentive type documented in this encounter [facility] Phone: Evaluation note* Diagnosis PTSD (post-traumatic stress disorder)- Primary Posttraumatic stress disorder Bipolar 2 disorder (HCC-CMS) Other bipolar disorders R/o Schizoaffective disorder, bipolar type (HCC-CMS) Schizoaffective disorder, unspecified condition Attention deficit hyperactivity disorder (ADHD), predominantly inattentive type documented in this encounter [facility] Phone: Evaluation note* Diagnosis Bipolar 2 disorder (HCC-CMS)- Primary Other bipolar disorders R/o Schizoaffective disorder, bipolar type (HCC-CMS) Schizoaffective disorder, unspecified condition Attention deficit hyperactivity disorder (ADHD), predominantly inattentive type PTSD (post-traumatic stress disorder) Posttraumatic stress disorder Insomnia disorder, persistent, with mental disorder documented in this encounter [facility] Phone: Evaluation note* Diagnosis R/o Bipolar 2 disorder (HCC-CMS)- Primary Other bipolar disorders R/o Schizoaffective disorder, bipolar type ([facility]-CMS) Schizoaffective disorder, unspecified condition Attention deficit hyperactivity disorder (ADHD), predominantly inattentive type PTSD (post-traumatic stress disorder) Posttraumatic stress disorder documented in this encounter [facility] Phone: Evaluation note* Diagnosis Gender dysphoria- Primary Gender identity disorder in children documented in this encounter [facility] Phone: Evaluation note* Diagnosis Sore throat- Primary [facility] Schizoaffective disorder, bipolar type (HCC-CMS)- Primary Schizoaffective disorder, unspecified condition Attention deficit hyperactivity disorder (ADHD), predominantly inattentive type PTSD (post-traumatic stress disorder) Posttraumatic stress disorder documented in this encounter [facility] Phone: Evaluation note* Diagnosis Gender dysphoria- Primary Gender identity disorder in children Acne vulgaris Other acne Prediabetes Other abnormal glucose Screening for thyroid disorder Obesity, Class III, BMI 40-49.9 (morbid obesity) ([facility]) Morbid obesity Transaminitis Nonspecific elevation of levels of transaminase or lactic acid dehydrogenase (LDH) documented in this encounter [facility] Phone: Evaluation note* Diagnosis Elevated liver enzymes- Primary Other nonspecific abnormal serum enzyme levels Diarrhea, unspecified type Prediabetes Other abnormal glucose Obesity, Class III, BMI 40-49.9 (morbid obesity) ([facility]) Morbid obesity Gender dysphoria Gender identity disorder in children Screening for ischemic heart disease Pelvic pain Reserved for inherently not codable concepts WITHOUT codable children documented in this encounter [facility] Phone: Evaluation note* Diagnosis Nausea and vomiting, unspecified vomiting type- Primary [facility] Schizoaffective disorder, bipolar type (HCC-CMS)- Primary Schizoaffective disorder, unspecified condition Attention deficit hyperactivity disorder (ADHD), predominantly inattentive type PTSD (post-traumatic stress disorder) Posttraumatic stress disorder Insomnia disorder, persistent, with mental disorder Generalized anxiety disorder documented in this encounter [facility] Phone: Evaluation note* Diagnosis Other migraine with status migrainosus, intractable- Primary documented in this encounter [facility] Phone: Evaluation note* Diagnosis Schizoaffective disorder, bipolar type ([facility]-CMS)- Primary Schizoaffective disorder, unspecified condition Attention deficit hyperactivity disorder (ADHD), predominantly inattentive type PTSD (post-traumatic stress disorder) Posttraumatic stress disorder Insomnia disorder, persistent, with mental disorder Generalized anxiety disorder documented in this encounter [facility] Phone: Evaluation note* Diagnosis Intractable chronic migraine with aura with status migrainosus- Primary Prediabetes Other abnormal glucose Obesity, Class III, BMI 40-49.9 (morbid obesity) ([facility]) Morbid obesity documented in this encounter [facility] Phone: Evaluation note* Diagnosis Schizoaffective disorder, bipolar type (HCC-CMS)- Primary Schizoaffective disorder, unspecified condition Attention deficit hyperactivity disorder (ADHD), predominantly inattentive type PTSD (post-traumatic stress disorder) Posttraumatic stress disorder Generalized anxiety disorder Insomnia disorder, persistent, with mental disorder documented in this encounter [facility] Phone: Evaluation note* Diagnosis Schizoaffective disorder, bipolar type (HCC-CMS)- Primary Schizoaffective disorder, unspecified condition Attention deficit hyperactivity disorder (ADHD), predominantly inattentive type PTSD (post-traumatic stress disorder) Posttraumatic stress disorder Generalized anxiety disorder Insomnia disorder, persistent, with mental disorder Therapeutic drug monitoring Encounter for therapeutic drug monitoring documented in this encounter [facility] Phone: Evaluation note* Diagnosis Weight gain due to medication- Primary Other symptoms concerning nutrition, metabolism, and development Other migraine with status migrainosus, intractable Diarrhea, unspecified type Prediabetes Other abnormal glucose Gender dysphoria Gender identity disorder in children documented in this encounter [facility] Phone: Evaluation note* Diagnosis Schizoaffective disorder, bipolar type ([facility])- Primary Schizoaffective disorder, unspecified condition Attention deficit hyperactivity disorder (ADHD), predominantly inattentive type PTSD (post-traumatic stress disorder) Posttraumatic stress disorder Generalized anxiety disorder Insomnia disorder, persistent, with mental disorder documented in this encounter [facility] Phone: Evaluation note* Diagnosis Gender dysphoria- Primary Gender identity disorder in children Bipolar 1 disorder ([facility]) Bipolar I disorder, most recent episode (or current) unspecified Bipolar 1 disorder ([facility]) Bipolar I disorder, most recent episode (or current) unspecified Other insomnia Gender dysphoria- Primary Gender identity disorder in children Bipolar 1 disorder ([facility]) Bipolar I disorder, most recent episode (or current) unspecified Acne vulgaris Other acne Bleeding after intercourse- Primary Postcoital bleeding Gender dysphoria Gender identity disorder in children Bipolar 1 disorder ([facility]) Bipolar I disorder, most recent episode (or current) unspecified Pelvic pain Reserved for inherently not codable concepts WITHOUT codable children Pelvic pain Reserved for inherently not codable concepts WITHOUT codable children Gender dysphoria Gender identity disorder in children Nicotine use disorder Tobacco use disorder Nicotine use disorder- Primary Tobacco use disorder Gender dysphoria- Primary Gender identity disorder in children Pelvic pain Reserved for inherently not codable concepts WITHOUT codable children Medication management Encounter for long-term (current) use of other medications Bipolar 1 disorder ([facility]) Bipolar I disorder, most recent episode (or current) unspecified Nicotine use disorder- Primary Tobacco use disorder Gender dysphoria- Primary Gender identity disorder in children S/P laparoscopic hysterectomy Acquired absence of both cervix and uterus Gender dysphoria- Primary Gender identity disorder in children Obesity, Class III, BMI 40-49.9 (morbid obesity) ([facility]) Morbid obesity Acne vulgaris Other acne Screening for ischemic heart disease Screening for diabetes mellitus Prediabetes Other abnormal glucose Prediabetes- Primary Other abnormal glucose Weight gain due to medication Other symptoms concerning nutrition, metabolism, and development Obesity, Class III, BMI 40-49.9 (morbid obesity) ([facility])- Primary Morbid obesity Prediabetes Other abnormal glucose Preop examination- Primary Preoperative examination, unspecified Gender dysphoria Gender identity disorder in children Prediabetes Other abnormal glucose Smoking Tobacco use disorder Weight gain due to medication Other symptoms concerning nutrition, metabolism, and development Acne vulgaris Other acne Pelvic pain Reserved for inherently not codable concepts WITHOUT codable children Weight gain due to medication Other symptoms concerning nutrition, metabolism, and development Prediabetes Other abnormal glucose Acne vulgaris Other acne Gender dysphoria Gender identity disorder in children Gender dysphoria- Primary Gender identity disorder in children Gender dysphoria- Primary Gender identity disorder in children Acne vulgaris Other acne Prediabetes Other abnormal glucose Screening for thyroid disorder Obesity, Class III, BMI 40-49.9 (morbid obesity) ([facility]) Morbid obesity Transaminitis Nonspecific elevation of levels of transaminase or lactic acid dehydrogenase (LDH) Elevated liver enzymes- Primary Other nonspecific abnormal serum enzyme levels Diarrhea, unspecified type Prediabetes Other abnormal glucose Obesity, Class III, BMI 40-49.9 (morbid obesity) ([facility]) Morbid obesity Gender dysphoria Gender identity disorder in children Screening for ischemic heart disease Pelvic pain Reserved for inherently not codable concepts WITHOUT codable children Other migraine with status migrainosus, intractable- Primary Intractable chronic migraine with aura with status migrainosus- Primary Prediabetes Other abnormal glucose Obesity, Class III, BMI 40-49.9 (morbid obesity) ([facility]) Morbid obesity Weight gain due to medication- Primary Other symptoms concerning nutrition, metabolism, and development Other migraine with status migrainosus, intractable Diarrhea, unspecified type Prediabetes Other abnormal glucose Gender dysphoria 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), predominantly inattentive type documented in this encounter [facility] Phone: Evaluation note* Diagnosis Gender dysphoria- Primary Gender identity disorder in children Bipolar 1 disorder ([facility]) Bipolar I disorder, most recent episode (or current) unspecified Bipolar 1 disorder ([facility]) Bipolar I disorder, most recent episode (or current) unspecified Other insomnia Gender dysphoria- Primary Gender identity disorder in children Bipolar 1 disorder ([facility]) Bipolar I disorder, most recent episode (or current) unspecified Acne vulgaris Other acne Bleeding after intercourse- Primary Postcoital bleeding Gender dysphoria Gender identity disorder in children Bipolar 1 disorder ([facility]) Bipolar I disorder, most recent episode (or current) unspecified Pelvic pain Reserved for inherently not codable concepts WITHOUT codable children Pelvic pain Reserved for inherently not codable concepts WITHOUT codable children Gender dysphoria Gender identity disorder in children Nicotine use disorder Tobacco use disorder Nicotine use disorder- Primary Tobacco use disorder Gender dysphoria- Primary Gender identity disorder in children Pelvic pain Reserved for inherently not codable concepts WITHOUT codable children Medication management Encounter for long-term (current) use of other medications Bipolar 1 disorder ([facility]) Bipolar I disorder, most recent episode (or current) unspecified Nicotine use disorder- Primary Tobacco use disorder Gender dysphoria- Primary Gender identity disorder in children S/P laparoscopic hysterectomy Acquired absence of both cervix and uterus Gender dysphoria- Primary Gender identity disorder in children Obesity, Class III, BMI 40-49.9 (morbid obesity) ([facility]) Morbid obesity Acne vulgaris Other acne Screening for ischemic heart disease Screening for diabetes mellitus Prediabetes Other abnormal glucose Prediabetes- Primary Other abnormal glucose Weight gain due to medication Other symptoms concerning nutrition, metabolism, and development Obesity, Class III, BMI 40-49.9 (morbid obesity) ([facility])- Primary Morbid obesity Prediabetes Other abnormal glucose Preop examination- Primary Preoperative examination, unspecified Gender dysphoria Gender identity disorder in children Prediabetes Other abnormal glucose Smoking Tobacco use disorder Weight gain due to medication Other symptoms concerning nutrition, metabolism, and development Acne vulgaris Other acne Pelvic pain Reserved for inherently not codable concepts WITHOUT codable children Weight gain due to medication Other symptoms concerning nutrition, metabolism, and development Prediabetes Other abnormal glucose Acne vulgaris Other acne Gender dysphoria Gender identity disorder in children Gender dysphoria- Primary Gender identity disorder in children Gender dysphoria- Primary Gender identity disorder in children Acne vulgaris Other acne Prediabetes Other abnormal glucose Screening for thyroid disorder Obesity, Class III, BMI 40-49.9 (morbid obesity) ([facility]) Morbid obesity Transaminitis Nonspecific elevation of levels of transaminase or lactic acid dehydrogenase (LDH) Elevated liver enzymes- Primary Other nonspecific abnormal serum enzyme levels Diarrhea, unspecified type Prediabetes Other abnormal glucose Obesity, Class III, BMI 40-49.9 (morbid obesity) ([facility]) Morbid obesity Gender dysphoria Gender identity disorder in children Screening for ischemic heart disease Pelvic pain Reserved for inherently not codable concepts WITHOUT codable children Other migraine with status migrainosus, intractable- Primary Intractable chronic migraine with aura with status migrainosus- Primary Prediabetes Other abnormal glucose Obesity, Class III, BMI 40-49.9 (morbid obesity) ([facility]) Morbid obesity Weight gain due to medication- Primary Other symptoms concerning nutrition, metabolism, and development Other migraine with status migrainosus, intractable Diarrhea, unspecified type Prediabetes Other abnormal glucose Gender dysphoria Gender identity disorder in children Schizoaffective disorder, bipolar type ([facility])- Primary Schizoaffective disorder, unspecified condition Attention deficit hyperactivity disorder (ADHD), predominantly inattentive type PTSD (post-traumatic stress disorder) Posttraumatic stress disorder Generalized anxiety disorder Insomnia disorder, persistent, with mental disorder documented in this encounter [facility] Phone: Evaluation note* Diagnosis Gender dysphoria- Primary Gender identity disorder in children Bipolar 1 disorder ([facility]) Bipolar I disorder, most recent episode (or current) unspecified Bipolar 1 disorder ([facility]) Bipolar I disorder, most recent episode (or current) unspecified Other insomnia Gender dysphoria- Primary Gender identity disorder in children Bipolar 1 disorder ([facility]) Bipolar I disorder, most recent episode (or current) unspecified Acne vulgaris Other acne Bleeding after intercourse- Primary Postcoital bleeding Gender dysphoria Gender identity disorder in children Bipolar 1 disorder ([facility]) Bipolar I disorder, most recent episode (or current) unspecified Pelvic pain Reserved for inherently not codable concepts WITHOUT codable children Pelvic pain Reserved for inherently not codable concepts WITHOUT codable children Gender dysphoria Gender identity disorder in children Nicotine use disorder Tobacco use disorder Nicotine use disorder- Primary Tobacco use disorder Gender dysphoria- Primary Gender identity disorder in children Pelvic pain Reserved for inherently not codable concepts WITHOUT codable children Medication management Encounter for long-term (current) use of other medications Bipolar 1 disorder ([facility]) Bipolar I disorder, most recent episode (or current) unspecified Nicotine use disorder- Primary Tobacco use disorder Gender dysphoria- Primary Gender identity disorder in children S/P laparoscopic hysterectomy Acquired absence of both cervix and uterus Gender dysphoria- Primary Gender identity disorder in children Obesity, Class III, BMI 40-49.9 (morbid obesity) ([facility]) Morbid obesity Acne vulgaris Other acne Screening for ischemic heart disease Screening for diabetes mellitus Prediabetes Other abnormal glucose Prediabetes- Primary Other abnormal glucose Weight gain due to medication Other symptoms concerning nutrition, metabolism, and development Obesity, Class III, BMI 40-49.9 (morbid obesity) ([facility])- Primary Morbid obesity Prediabetes Other abnormal glucose Preop examination- Primary Preoperative examination, unspecified Gender dysphoria Gender identity disorder in children Prediabetes Other abnormal glucose Smoking Tobacco use disorder Weight gain due to medication Other symptoms concerning nutrition, metabolism, and development Acne vulgaris Other acne Pelvic pain Reserved for inherently not codable concepts WITHOUT codable children Weight gain due to medication Other symptoms concerning nutrition, metabolism, and development Prediabetes Other abnormal glucose Acne vulgaris Other acne Gender dysphoria Gender identity disorder in children Gender dysphoria- Primary Gender identity disorder in children Gender dysphoria- Primary Gender identity disorder in children Acne vulgaris Other acne Prediabetes Other abnormal glucose Screening for thyroid disorder Obesity, Class III, BMI 40-49.9 (morbid obesity) ([facility]) Morbid obesity Transaminitis Nonspecific elevation of levels of transaminase or lactic acid dehydrogenase (LDH) Elevated liver enzymes- Primary Other nonspecific abnormal serum enzyme levels Diarrhea, unspecified type Prediabetes Other abnormal glucose Obesity, Class III, BMI 40-49.9 (morbid obesity) ([facility]) Morbid obesity Gender dysphoria Gender identity disorder in children Screening for ischemic heart disease Pelvic pain Reserved for inherently not codable concepts WITHOUT codable children Other migraine with status migrainosus, intractable- Primary Intractable chronic migraine with aura with status migrainosus- Primary Prediabetes Other abnormal glucose Obesity, Class III, BMI 40-49.9 (morbid obesity) ([facility]) Morbid obesity Weight gain due to medication- Primary Other symptoms concerning nutrition, metabolism, and development Other migraine with status migrainosus, intractable Diarrhea, unspecified type Prediabetes Other abnormal glucose Gender dysphoria Gender identity disorder in children Gender dysphoria- Primary Gender identity disorder in children Urinary retention Retention of urine, unspecified Screening for ischemic heart disease Prediabetes Other abnormal glucose Intractable chronic migraine with aura with status migrainosus Obesity, Class III, BMI 40-49.9 (morbid obesity) ([facility]) Morbid obesity documented in this encounter [facility] [facility] Phone: Evaluation note* Diagnosis Gender dysphoria- Primary Gender identity disorder in children Bipolar 1 disorder ([facility]) Bipolar I disorder, most recent episode (or current) unspecified Bipolar 1 disorder ([facility]) Bipolar I disorder, most recent episode (or current) unspecified Other insomnia Gender dysphoria- Primary Gender identity disorder in children Bipolar 1 disorder ([facility]) Bipolar I disorder, most recent episode (or current) unspecified Acne vulgaris Other acne Bleeding after intercourse- Primary Postcoital bleeding Gender dysphoria Gender identity disorder in children Bipolar 1 disorder ([facility]) Bipolar I disorder, most recent episode (or current) unspecified Pelvic pain Reserved for inherently not codable concepts WITHOUT codable children Pelvic pain Reserved for inherently not codable concepts WITHOUT codable children Gender dysphoria Gender identity disorder in children Nicotine use disorder Tobacco use disorder Nicotine use disorder- Primary Tobacco use disorder Gender dysphoria- Primary Gender identity disorder in children Pelvic pain Reserved for inherently not codable concepts WITHOUT codable children Medication management Encounter for long-term (current) use of other medications Bipolar 1 disorder ([facility]) Bipolar I disorder, most recent episode (or current) unspecified Nicotine use disorder- Primary Tobacco use disorder Gender dysphoria- Primary Gender identity disorder in children S/P laparoscopic hysterectomy Acquired absence of both cervix and uterus Gender dysphoria- Primary Gender identity disorder in children Obesity, Class III, BMI 40-49.9 (morbid obesity) ([facility]) Morbid obesity Acne vulgaris Other acne Screening for ischemic heart disease Screening for diabetes mellitus Prediabetes Other abnormal glucose Prediabetes- Primary Other abnormal glucose Weight gain due to medication Other symptoms concerning nutrition, metabolism, and development Obesity, Class III, BMI 40-49.9 (morbid obesity) ([facility])- Primary Morbid obesity Prediabetes Other abnormal glucose Preop examination- Primary Preoperative examination, unspecified Gender dysphoria Gender identity disorder in children Prediabetes Other abnormal glucose Smoking Tobacco use disorder Weight gain due to medication Other symptoms concerning nutrition, metabolism, and development Acne vulgaris Other acne Pelvic pain Reserved for inherently not codable concepts WITHOUT codable children Weight gain due to medication Other symptoms concerning nutrition, metabolism, and development Prediabetes Other abnormal glucose Acne vulgaris Other acne Gender dysphoria Gender identity disorder in children Gender dysphoria- Primary Gender identity disorder in children Gender dysphoria- Primary Gender identity disorder in children Acne vulgaris Other acne Prediabetes Other abnormal glucose Screening for thyroid disorder Obesity, Class III, BMI 40-49.9 (morbid obesity) ([facility]) Morbid obesity Transaminitis Nonspecific elevation of levels of transaminase or lactic acid dehydrogenase (LDH) Elevated liver enzymes- Primary Other nonspecific abnormal serum enzyme levels Diarrhea, unspecified type Prediabetes Other abnormal glucose Obesity, Class III, BMI 40-49.9 (morbid obesity) ([facility]) Morbid obesity Gender dysphoria Gender identity disorder in children Screening for ischemic heart disease Pelvic pain Reserved for inherently not codable concepts WITHOUT codable children Other migraine with status migrainosus, intractable- Primary Intractable chronic migraine with aura with status migrainosus- Primary Prediabetes Other abnormal glucose Obesity, Class III, BMI 40-49.9 (morbid obesity) ([facility]) Morbid obesity Weight gain due to medication- Primary Other symptoms concerning nutrition, metabolism, and development Other migraine with status migrainosus, intractable Diarrhea, unspecified type Prediabetes Other abnormal glucose Gender dysphoria Gender identity disorder in children Gender dysphoria- Primary Gender identity disorder in children Urinary retention Retention of urine, unspecified Screening for ischemic heart disease Prediabetes Other abnormal glucose Intractable chronic migraine with aura with status migrainosus Obesity, Class III, BMI 40-49.9 (morbid obesity) ([facility]) Morbid obesity Weakness- Primary Other malaise and fatigue documented in this encounter [facility] [facility] Phone: Evaluation note* Diagnosis Gender dysphoria- Primary Gender identity disorder in children Bipolar 1 disorder ([facility]) Bipolar I disorder, most recent episode (or current) unspecified Bipolar 1 disorder ([facility]) Bipolar I disorder, most recent episode (or current) unspecified Other insomnia Gender dysphoria- Primary Gender identity disorder in children Bipolar 1 disorder ([facility]) Bipolar I disorder, most recent episode (or current) unspecified Acne vulgaris Other acne Bleeding after intercourse- Primary Postcoital bleeding Gender dysphoria Gender identity disorder in children Bipolar 1 disorder ([facility]) Bipolar I disorder, most recent episode (or current) unspecified Pelvic pain Reserved for inherently not codable concepts WITHOUT codable children Pelvic pain Reserved for inherently not codable concepts WITHOUT codable children Gender dysphoria Gender identity disorder in children Nicotine use disorder Tobacco use disorder Nicotine use disorder- Primary Tobacco use disorder Gender dysphoria- Primary Gender identity disorder in children Pelvic pain Reserved for inherently not codable concepts WITHOUT codable children Medication management Encounter for long-term (current) use of other medications Bipolar 1 disorder ([facility]) Bipolar I disorder, most recent episode (or current) unspecified Nicotine use disorder- Primary Tobacco use disorder Gender dysphoria- Primary Gender identity disorder in children S/P laparoscopic hysterectomy Acquired absence of both cervix and uterus Gender dysphoria- Primary Gender identity disorder in children Obesity, Class III, BMI 40-49.9 (morbid obesity) ([facility]) Morbid obesity Acne vulgaris Other acne Screening for ischemic heart disease Screening for diabetes mellitus Prediabetes Other abnormal glucose Prediabetes- Primary Other abnormal glucose Weight gain due to medication Other symptoms concerning nutrition, metabolism, and development Obesity, Class III, BMI 40-49.9 (morbid obesity) ([facility])- Primary Morbid obesity Prediabetes Other abnormal glucose Preop examination- Primary Preoperative examination, unspecified Gender dysphoria Gender identity disorder in children Prediabetes Other abnormal glucose Smoking Tobacco use disorder Weight gain due to medication Other symptoms concerning nutrition, metabolism, and development Acne vulgaris Other acne Pelvic pain Reserved for inherently not codable concepts WITHOUT codable children Weight gain due to medication Other symptoms concerning nutrition, metabolism, and development Prediabetes Other abnormal glucose Acne vulgaris Other acne Gender dysphoria Gender identity disorder in children Gender dysphoria- Primary Gender identity disorder in children Gender dysphoria- Primary Gender identity disorder in children Acne vulgaris Other acne Prediabetes Other abnormal glucose Screening for thyroid disorder Obesity, Class III, BMI 40-49.9 (morbid obesity) ([facility]) Morbid obesity Transaminitis Nonspecific elevation of levels of transaminase or lactic acid dehydrogenase (LDH) Elevated liver enzymes- Primary Other nonspecific abnormal serum enzyme levels Diarrhea, unspecified type Prediabetes Other abnormal glucose Obesity, Class III, BMI 40-49.9 (morbid obesity) ([facility]) Morbid obesity Gender dysphoria Gender identity disorder in children Screening for ischemic heart disease Pelvic pain Reserved for inherently not codable concepts WITHOUT codable children Other migraine with status migrainosus, intractable- Primary Intractable chronic migraine with aura with status migrainosus- Primary Prediabetes Other abnormal glucose Obesity, Class III, BMI 40-49.9 (morbid obesity) ([facility]) Morbid obesity Weight gain due to medication- Primary Other symptoms concerning nutrition, metabolism, and development Other migraine with status migrainosus, intractable Diarrhea, unspecified type Prediabetes Other abnormal glucose Gender dysphoria Gender identity disorder in children Gender dysphoria- Primary Gender identity disorder in children Urinary retention Retention of urine, unspecified Screening for ischemic heart disease Prediabetes Other abnormal glucose Intractable chronic migraine with aura with status migrainosus Obesity, Class III, BMI 40-49.9 (morbid obesity) ([facility]) Morbid obesity Weakness- Primary Other malaise and fatigue Schizoaffective disorder, bipolar type ([facility])- Primary Schizoaffective disorder, unspecified condition Attention deficit hyperactivity disorder (ADHD), predominantly inattentive type PTSD (post-traumatic stress disorder) Posttraumatic stress disorder Generalized anxiety disorder Insomnia disorder, persistent, with mental disorder documented in this encounter [facility] Phone: Evaluation note* Diagnosis Gender dysphoria- Primary Gender identity disorder in children Bipolar 1 disorder ([facility]) Bipolar I disorder, most recent episode (or current) unspecified Bipolar 1 disorder ([facility]) Bipolar I disorder, most recent episode (or current) unspecified Other insomnia Gender dysphoria- Primary Gender identity disorder in children Bipolar 1 disorder ([facility]) Bipolar I disorder, most recent episode (or current) unspecified Acne vulgaris Other acne Bleeding after intercourse- Primary Postcoital bleeding Gender dysphoria Gender identity disorder in children Bipolar 1 disorder ([facility]) Bipolar I disorder, most recent episode (or current) unspecified Pelvic pain Reserved for inherently not codable concepts WITHOUT codable children Pelvic pain Reserved for inherently not codable concepts WITHOUT codable children Gender dysphoria Gender identity disorder in children Nicotine use disorder Tobacco use disorder Nicotine use disorder- Primary Tobacco use disorder Gender dysphoria- Primary Gender identity disorder in children Pelvic pain Reserved for inherently not codable concepts WITHOUT codable children Medication management Encounter for long-term (current) use of other medications Bipolar 1 disorder ([facility]) Bipolar I disorder, most recent episode (or current) unspecified Nicotine use disorder- Primary Tobacco use disorder Gender dysphoria- Primary Gender identity disorder in children S/P laparoscopic hysterectomy Acquired absence of both cervix and uterus Gender dysphoria- Primary Gender identity disorder in children Obesity, Class III, BMI 40-49.9 (morbid obesity) ([facility]) Morbid obesity Acne vulgaris Other acne Screening for ischemic heart disease Screening for diabetes mellitus Prediabetes Other abnormal glucose Prediabetes- Primary Other abnormal glucose Weight gain due to medication Other symptoms concerning nutrition, metabolism, and development Obesity, Class III, BMI 40-49.9 (morbid obesity) ([facility])- Primary Morbid obesity Prediabetes Other abnormal glucose Preop examination- Primary Preoperative examination, unspecified Gender dysphoria Gender identity disorder in children Prediabetes Other abnormal glucose Smoking Tobacco use disorder Weight gain due to medication Other symptoms concerning nutrition, metabolism, and development Acne vulgaris Other acne Pelvic pain Reserved for inherently not codable concepts WITHOUT codable children Weight gain due to medication Other symptoms concerning nutrition, metabolism, and development Prediabetes Other abnormal glucose Acne vulgaris Other acne Gender dysphoria Gender identity disorder in children Gender dysphoria- Primary Gender identity disorder in children Gender dysphoria- Primary Gender identity disorder in children Acne vulgaris Other acne Prediabetes Other abnormal glucose Screening for thyroid disorder Obesity, Class III, BMI 40-49.9 (morbid obesity) ([facility]) Morbid obesity Transaminitis Nonspecific elevation of levels of transaminase or lactic acid dehydrogenase (LDH) Elevated liver enzymes- Primary Other nonspecific abnormal serum enzyme levels Diarrhea, unspecified type Prediabetes Other abnormal glucose Obesity, Class III, BMI 40-49.9 (morbid obesity) ([facility]) Morbid obesity Gender dysphoria Gender identity disorder in children Screening for ischemic heart disease Pelvic pain Reserved for inherently not codable concepts WITHOUT codable children Other migraine with status migrainosus, intractable- Primary Intractable chronic migraine with aura with status migrainosus- Primary Prediabetes Other abnormal glucose Obesity, Class III, BMI 40-49.9 (morbid obesity) ([facility]) Morbid obesity Weight gain due to medication- Primary Other symptoms concerning nutrition, metabolism, and development Other migraine with status migrainosus, intractable Diarrhea, unspecified type Prediabetes Other abnormal glucose Gender dysphoria Gender identity disorder in children Gender dysphoria- Primary Gender identity disorder in children Urinary retention Retention of urine, unspecified Screening for ischemic heart disease Prediabetes Other abnormal glucose Intractable chronic migraine with aura with status migrainosus Obesity, Class III, BMI 40-49.9 (morbid obesity) ([facility]) Morbid obesity Weakness- Primary Other malaise and fatigue Pain- Primary Generalized pain Weakness Other malaise and fatigue documented in this encounter [facility] Phone: Evaluation note* Diagnosis Gender dysphoria- Primary Gender identity disorder in children Bipolar 1 disorder ([facility]) Bipolar I disorder, most recent episode (or current) unspecified Bipolar 1 disorder ([facility]) Bipolar I disorder, most recent episode (or current) unspecified Other insomnia Gender dysphoria- Primary Gender identity disorder in children [facility] Bipolar I disorder, most recent episode (or current) unspecified Acne vulgaris Other acne Bleeding after intercourse- Primary Postcoital bleeding Gender dysphoria Gender identity disorder in children Bipolar 1 disorder ([facility]) Bipolar I disorder, most recent episode (or current) unspecified Pelvic pain Reserved for inherently not codable concepts WITHOUT codable children Pelvic pain Reserved for inherently not codable concepts WITHOUT codable children Gender dysphoria Gender identity disorder in children Nicotine use disorder Tobacco use disorder Nicotine use disorder- Primary Tobacco use disorder Gender dysphoria- Primary Gender identity disorder in children Pelvic pain Reserved for inherently not codable concepts WITHOUT codable children Medication management Encounter for long-term (current) use of other medications Bipolar 1 disorder ([facility]) Bipolar I disorder, most recent episode (or current) unspecified Nicotine use disorder- Primary Tobacco use disorder Gender dysphoria- Primary Gender identity disorder in children S/P laparoscopic hysterectomy Acquired absence of both cervix and uterus Gender dysphoria- Primary Gender identity disorder in children Obesity, Class III, BMI 40-49.9 (morbid obesity) ([facility]) Morbid obesity Acne vulgaris Other acne Screening for ischemic heart disease Screening for diabetes mellitus Prediabetes Other abnormal glucose Prediabetes- Primary Other abnormal glucose Weight gain due to medication Other symptoms concerning nutrition, metabolism, and development Obesity, Class III, BMI 40-49.9 (morbid obesity) ([facility])- Primary Morbid obesity Prediabetes Other abnormal glucose Preop examination- Primary Preoperative examination, unspecified Gender dysphoria Gender identity disorder in children Prediabetes Other abnormal glucose Smoking Tobacco use disorder Weight gain due to medication Other symptoms concerning nutrition, metabolism, and development Acne vulgaris Other acne Pelvic pain Reserved for inherently not codable concepts WITHOUT codable children Weight gain due to medication Other symptoms concerning nutrition, metabolism, and development Prediabetes Other abnormal glucose Acne vulgaris Other acne Gender dysphoria Gender identity disorder in children Gender dysphoria- Primary Gender identity disorder in children Gender dysphoria- Primary Gender identity disorder in children Acne vulgaris Other acne Prediabetes Other abnormal glucose Screening for thyroid disorder Obesity, Class III, BMI 40-49.9 (morbid obesity) ([facility]) Morbid obesity Transaminitis Nonspecific elevation of levels of transaminase or lactic acid dehydrogenase (LDH) Elevated liver enzymes- Primary Other nonspecific abnormal serum enzyme levels Diarrhea, unspecified type Prediabetes Other abnormal glucose Obesity, Class III, BMI 40-49.9 (morbid obesity) ([facility]) Morbid obesity Gender dysphoria Gender identity disorder in children Screening for ischemic heart disease Pelvic pain Reserved for inherently not codable concepts WITHOUT codable children Other migraine with status migrainosus, intractable- Primary Intractable chronic migraine with aura with status migrainosus- Primary Prediabetes Other abnormal glucose Obesity, Class III, BMI 40-49.9 (morbid obesity) ([facility]) Morbid obesity Weight gain due to medication- Primary Other symptoms concerning nutrition, metabolism, and development Other migraine with status migrainosus, intractable Diarrhea, unspecified type Prediabetes Other abnormal glucose Gender dysphoria Gender identity disorder in children Schizoaffective disorder, bipolar type ([facility])- Primary Schizoaffective disorder, unspecified condition Attention deficit hyperactivity disorder (ADHD), predominantly inattentive type PTSD (post-traumatic stress disorder) Posttraumatic stress disorder Generalized anxiety disorder Insomnia disorder, persistent, with mental disorder documented in this encounter [facility] Phone: Evaluation note* Diagnosis Gender dysphoria- Primary Gender identity disorder in children Bipolar 1 disorder ([facility]) Bipolar I disorder, most recent episode (or current) unspecified Bipolar 1 disorder ([facility]) Bipolar I disorder, most recent episode (or current) unspecified Other insomnia Gender dysphoria- Primary Gender identity disorder in children Bipolar 1 disorder ([facility]) Bipolar I disorder, most recent episode (or current) unspecified Acne vulgaris Other acne Bleeding after intercourse- Primary Postcoital bleeding Gender dysphoria Gender identity disorder in children Bipolar 1 disorder ([facility]) Bipolar I disorder, most recent episode (or current) unspecified Pelvic pain Reserved for inherently not codable concepts WITHOUT codable children Pelvic pain Reserved for inherently not codable concepts WITHOUT codable children Gender dysphoria Gender identity disorder in children Nicotine use disorder Tobacco use disorder Nicotine use disorder- Primary Tobacco use disorder Gender dysphoria- Primary Gender identity disorder in children Pelvic pain Reserved for inherently not codable concepts WITHOUT codable children Medication management Encounter for long-term (current) use of other medications Bipolar 1 disorder ([facility]) Bipolar I disorder, most recent episode (or current) unspecified Nicotine use disorder- Primary Tobacco use disorder Gender dysphoria- Primary Gender identity disorder in children S/P laparoscopic hysterectomy Acquired absence of both cervix and uterus Gender dysphoria- Primary Gender identity disorder in children Obesity, Class III, BMI 40-49.9 (morbid obesity) ([facility]) Morbid obesity Acne vulgaris Other acne Screening for ischemic heart disease Screening for diabetes mellitus Prediabetes Other abnormal glucose Prediabetes- Primary Other abnormal glucose Weight gain due to medication Other symptoms concerning nutrition, metabolism, and development Obesity, Class III, BMI 40-49.9 (morbid obesity) ([facility])- Primary Morbid obesity Prediabetes Other abnormal glucose Preop examination- Primary Preoperative examination, unspecified Gender dysphoria Gender identity disorder in children Prediabetes Other abnormal glucose Smoking Tobacco use disorder Weight gain due to medication Other symptoms concerning nutrition, metabolism, and development Acne vulgaris Other acne Pelvic pain Reserved for inherently not codable concepts WITHOUT codable children Weight gain due to medication Other symptoms concerning nutrition, metabolism, and development Prediabetes Other abnormal glucose Acne vulgaris Other acne Gender dysphoria Gender identity disorder in children Gender dysphoria- Primary Gender identity disorder in children Gender dysphoria- Primary Gender identity disorder in children Acne vulgaris Other acne Prediabetes Other abnormal glucose Screening for thyroid disorder Obesity, Class III, BMI 40-49.9 (morbid obesity) ([facility]) Morbid obesity Transaminitis Nonspecific elevation of levels of transaminase or lactic acid dehydrogenase (LDH) Elevated liver enzymes- Primary Other nonspecific abnormal serum enzyme levels Diarrhea, unspecified type Prediabetes Other abnormal glucose Obesity, Class III, BMI 40-49.9 (morbid obesity) ([facility]) Morbid obesity Gender dysphoria Gender identity disorder in children Screening for ischemic heart disease Pelvic pain Reserved for inherently not codable concepts WITHOUT codable children Other migraine with status migrainosus, intractable- Primary Intractable chronic migraine with aura with status migrainosus- Primary Prediabetes Other abnormal glucose Obesity, Class III, BMI 40-49.9 (morbid obesity) ([facility]) Morbid obesity Weight gain due to medication- Primary Other symptoms concerning nutrition, metabolism, and development Other migraine with status migrainosus, intractable Diarrhea, unspecified type Prediabetes Other abnormal glucose Gender dysphoria Gender identity disorder in children Gender dysphoria- Primary Gender identity disorder in children Urinary retention Retention of urine, unspecified Screening for ischemic heart disease Prediabetes Other abnormal glucose Intractable chronic migraine with aura with status migrainosus Obesity, Class III, BMI 40-49.9 (morbid obesity) ([facility]) Morbid obesity Weakness- Primary Other malaise and fatigue Pain- Primary Generalized pain Weakness Other malaise and fatigue Schizoaffective disorder, bipolar type ([facility])- Primary Schizoaffective disorder, unspecified condition Attention deficit hyperactivity disorder (ADHD), predominantly inattentive type PTSD (post-traumatic stress disorder) Posttraumatic stress disorder Generalized anxiety disorder Insomnia disorder, persistent, with mental disorder documented in this encounter [facility] Phone: Evaluation note* Diagnosis Gender dysphoria- Primary Gender identity disorder in children Bipolar 1 disorder ([facility]) Bipolar I disorder, most recent episode (or current) unspecified Bipolar 1 disorder ([facility]) Bipolar I disorder, most recent episode (or current) unspecified Other insomnia Gender dysphoria- Primary Gender identity disorder in children Bipolar 1 disorder ([facility]) Bipolar I disorder, most recent episode (or current) unspecified Acne vulgaris Other acne Bleeding after intercourse- Primary Postcoital bleeding Gender dysphoria Gender identity disorder in children Bipolar 1 disorder ([facility]) Bipolar I disorder, most recent episode (or current) unspecified Pelvic pain Reserved for inherently not codable concepts WITHOUT codable children Pelvic pain Reserved for inherently not codable concepts WITHOUT codable children Gender dysphoria Gender identity disorder in children Nicotine use disorder Tobacco use disorder Nicotine use disorder- Primary Tobacco use disorder Gender dysphoria- Primary Gender identity disorder in children Pelvic pain Reserved for inherently not codable concepts WITHOUT codable children Medication management Encounter for long-term (current) use of other medications Bipolar 1 disorder ([facility]) Bipolar I disorder, most recent episode (or current) unspecified Nicotine use disorder- Primary Tobacco use disorder Gender dysphoria- Primary Gender identity disorder in children S/P laparoscopic hysterectomy Acquired absence of both cervix and uterus Gender dysphoria- Primary Gender identity disorder in children Obesity, Class III, BMI 40-49.9 (morbid obesity) ([facility]) Morbid obesity Acne vulgaris Other acne Screening for ischemic heart disease Screening for diabetes mellitus Prediabetes Other abnormal glucose Prediabetes- Primary Other abnormal glucose Weight gain due to medication Other symptoms concerning nutrition, metabolism, and development Obesity, Class III, BMI 40-49.9 (morbid obesity) ([facility])- Primary Morbid obesity Prediabetes Other abnormal glucose Preop examination- Primary Preoperative examination, unspecified Gender dysphoria Gender identity disorder in children Prediabetes Other abnormal glucose Smoking Tobacco use disorder Weight gain due to medication Other symptoms concerning nutrition, metabolism, and development Acne vulgaris Other acne Pelvic pain Reserved for inherently not codable concepts WITHOUT codable children Weight gain due to medication Other symptoms concerning nutrition, metabolism, and development Prediabetes Other abnormal glucose Acne vulgaris Other acne Gender dysphoria Gender identity disorder in children Gender dysphoria- Primary Gender identity disorder in children Gender dysphoria- Primary Gender identity disorder in children Acne vulgaris Other acne Prediabetes Other abnormal glucose Screening for thyroid disorder Obesity, Class III, BMI 40-49.9 (morbid obesity) ([facility]) Morbid obesity Transaminitis Nonspecific elevation of levels of transaminase or lactic acid dehydrogenase (LDH) Elevated liver enzymes- Primary Other nonspecific abnormal serum enzyme levels Diarrhea, unspecified type Prediabetes Other abnormal glucose Obesity, Class III, BMI 40-49.9 (morbid obesity) ([facility]) Morbid obesity Gender dysphoria Gender identity disorder in children Screening for ischemic heart disease Pelvic pain Reserved for inherently not codable concepts WITHOUT codable children Other migraine with status migrainosus, intractable- Primary Intractable chronic migraine with aura with status migrainosus- Primary Prediabetes Other abnormal glucose Obesity, Class III, BMI 40-49.9 (morbid obesity) ([facility]) Morbid obesity Weight gain due to medication- Primary Other symptoms concerning nutrition, metabolism, and development Other migraine with status migrainosus, intractable Diarrhea, unspecified type Prediabetes Other abnormal glucose Gender dysphoria Gender identity disorder in children Gender dysphoria- Primary Gender identity disorder in children Urinary retention Retention of urine, unspecified Screening for ischemic heart disease Prediabetes Other abnormal glucose Intractable chronic migraine with aura with status migrainosus Obesity, Class III, BMI 40-49.9 (morbid obesity) ([facility]) Morbid obesity Weakness- Primary Other malaise and fatigue Pain- Primary Generalized pain Weakness Other malaise and fatigue Weight gain due to medication- Primary Other symptoms concerning nutrition, metabolism, and development Prediabetes Other abnormal glucose Pain Generalized pain Weakness Other malaise and fatigue documented in this encounter [employer] Phone: Evaluation note* Diagnosis Gender dysphoria- Primary Gender identity disorder in children Bipolar 1 disorder ([facility]) Bipolar I disorder, most recent episode (or current) unspecified Bipolar 1 disorder ([facility]) Bipolar I disorder, most recent episode (or current) unspecified Other insomnia Gender dysphoria- Primary Gender identity disorder in children Bipolar 1 disorder ([facility]) Bipolar I disorder, most recent episode (or current) unspecified Acne vulgaris Other acne Bleeding after intercourse- Primary Postcoital bleeding Gender dysphoria Gender identity disorder in children Bipolar 1 disorder ([facility]) Bipolar I disorder, most recent episode (or current) unspecified Pelvic pain Reserved for inherently not codable concepts WITHOUT codable children Pelvic pain Reserved for inherently not codable concepts WITHOUT codable children Gender dysphoria Gender identity disorder in children Nicotine use disorder Tobacco use disorder Nicotine use disorder- Primary Tobacco use disorder Gender dysphoria- Primary Gender identity disorder in children Pelvic pain Reserved for inherently not codable concepts WITHOUT codable children Medication management Encounter for long-term (current) use of other medications Bipolar 1 disorder ([facility]) Bipolar I disorder, most recent episode (or current) unspecified Nicotine use disorder- Primary Tobacco use disorder Gender dysphoria- Primary Gender identity disorder in children S/P laparoscopic hysterectomy Acquired absence of both cervix and uterus Gender dysphoria- Primary Gender identity disorder in children Obesity, Class III, BMI 40-49.9 (morbid obesity) ([facility]) Morbid obesity Acne vulgaris Other acne Screening for ischemic heart disease Screening for diabetes mellitus Prediabetes Other abnormal glucose Prediabetes- Primary Other abnormal glucose Weight gain due to medication Other symptoms concerning nutrition, metabolism, and development Obesity, Class III, BMI 40-49.9 (morbid obesity) ([facility])- Primary Morbid obesity Prediabetes Other abnormal glucose Preop examination- Primary Preoperative examination, unspecified Gender dysphoria Gender identity disorder in children Prediabetes Other abnormal glucose Smoking Tobacco use disorder Weight gain due to medication Other symptoms concerning nutrition, metabolism, and development Acne vulgaris Other acne Pelvic pain Reserved for inherently not codable concepts WITHOUT codable children Weight gain due to medication Other symptoms concerning nutrition, metabolism, and development Prediabetes Other abnormal glucose Acne vulgaris Other acne Gender dysphoria Gender identity disorder in children Gender dysphoria- Primary Gender identity disorder in children Gender dysphoria- Primary Gender identity disorder in children Acne vulgaris Other acne Prediabetes Other abnormal glucose Screening for thyroid disorder Obesity, Class III, BMI 40-49.9 (morbid obesity) ([facility]) Morbid obesity Transaminitis Nonspecific elevation of levels of transaminase or lactic acid dehydrogenase (LDH) Elevated liver enzymes- Primary Other nonspecific abnormal serum enzyme levels Diarrhea, unspecified type Prediabetes Other abnormal glucose Obesity, Class III, BMI 40-49.9 (morbid obesity) ([facility]) Morbid obesity Gender dysphoria Gender identity disorder in children Screening for ischemic heart disease Pelvic pain Reserved for inherently not codable concepts WITHOUT codable children Other migraine with status migrainosus, intractable- Primary Intractable chronic migraine with aura with status migrainosus- Primary Prediabetes Other abnormal glucose Obesity, Class III, BMI 40-49.9 (morbid obesity) ([facility]) Morbid obesity Weight gain due to medication- Primary Other symptoms concerning nutrition, metabolism, and development Other migraine with status migrainosus, intractable Diarrhea, unspecified type Prediabetes Other abnormal glucose Gender dysphoria Gender identity disorder in children Gender dysphoria- Primary Gender identity disorder in children Urinary retention Retention of urine, unspecified Screening for ischemic heart disease Prediabetes Other abnormal glucose Intractable chronic migraine with aura with status migrainosus Obesity, Class III, BMI 40-49.9 (morbid obesity) ([facility]) Morbid obesity Weakness- Primary Other malaise and fatigue Pain- Primary Generalized pain Weakness Other malaise and fatigue Schizoaffective disorder, bipolar type ([facility])- Primary Schizoaffective disorder, unspecified condition Attention deficit hyperactivity disorder (ADHD), predominantly inattentive type PTSD (post-traumatic stress disorder) Posttraumatic stress disorder Generalized anxiety disorder Insomnia disorder, persistent, with mental disorder documented in this encounter [facility] Phone: Evaluation note* Diagnosis Gender dysphoria- Primary Gender identity disorder in children Bipolar 1 disorder ([facility]) Bipolar I disorder, most recent episode (or current) unspecified Bipolar 1 disorder ([facility]) Bipolar I disorder, most recent episode (or current) unspecified Other insomnia Gender dysphoria- Primary Gender identity disorder in children Bipolar 1 disorder ([facility]) Bipolar I disorder, most recent episode (or current) unspecified Acne vulgaris Other acne Bleeding after intercourse- Primary Postcoital bleeding Gender dysphoria Gender identity disorder in children Bipolar 1 disorder ([facility]) Bipolar I disorder, most recent episode (or current) unspecified Pelvic pain Reserved for inherently not codable concepts WITHOUT codable children Pelvic pain Reserved for inherently not codable concepts WITHOUT codable children Gender dysphoria Gender identity disorder in children Nicotine use disorder Tobacco use disorder Nicotine use disorder- Primary Tobacco use disorder Gender dysphoria- Primary Gender identity disorder in children Pelvic pain Reserved for inherently not codable concepts WITHOUT codable children Medication management Encounter for long-term (current) use of other medications Bipolar 1 disorder ([facility]) Bipolar I disorder, most recent episode (or current) unspecified Nicotine use disorder- Primary Tobacco use disorder Gender dysphoria- Primary Gender identity disorder in children S/P laparoscopic hysterectomy Acquired absence of both cervix and uterus Gender dysphoria- Primary Gender identity disorder in children Obesity, Class III, BMI 40-49.9 (morbid obesity) ([facility]) Morbid obesity Acne vulgaris Other acne Screening for ischemic heart disease Screening for diabetes mellitus Prediabetes Other abnormal glucose Prediabetes- Primary Other abnormal glucose Weight gain due to medication Other symptoms concerning nutrition, metabolism, and development Obesity, Class III, BMI 40-49.9 (morbid obesity) ([facility])- Primary Morbid obesity Prediabetes Other abnormal glucose Preop examination- Primary Preoperative examination, unspecified Gender dysphoria Gender identity disorder in children Prediabetes Other abnormal glucose Smoking Tobacco use disorder Weight gain due to medication Other symptoms concerning nutrition, metabolism, and development Acne vulgaris Other acne Pelvic pain Reserved for inherently not codable concepts WITHOUT codable children Weight gain due to medication Other symptoms concerning nutrition, metabolism, and development Prediabetes Other abnormal glucose Acne vulgaris Other acne Gender dysphoria Gender identity disorder in children Gender dysphoria- Primary Gender identity disorder in children Gender dysphoria- Primary Gender identity disorder in children Acne vulgaris Other acne Prediabetes Other abnormal glucose Screening for thyroid disorder Obesity, Class III, BMI 40-49.9 (morbid obesity) ([facility]) Morbid obesity Transaminitis Nonspecific elevation of levels of transaminase or lactic acid dehydrogenase (LDH) Elevated liver enzymes- Primary Other nonspecific abnormal serum enzyme levels Diarrhea, unspecified type Prediabetes Other abnormal glucose Obesity, Class III, BMI 40-49.9 (morbid obesity) ([facility]) Morbid obesity Gender dysphoria Gender identity disorder in children Screening for ischemic heart disease Pelvic pain Reserved for inherently not codable concepts WITHOUT codable children Other migraine with status migrainosus, intractable- Primary Intractable chronic migraine with aura with status migrainosus- Primary Prediabetes Other abnormal glucose Obesity, Class III, BMI 40-49.9 (morbid obesity) ([facility]) Morbid obesity Weight gain due to medication- Primary Other symptoms concerning nutrition, metabolism, and development Other migraine with status migrainosus, intractable Diarrhea, unspecified type Prediabetes Other abnormal glucose Gender dysphoria Gender identity disorder in children Gender dysphoria- Primary Gender identity disorder in children Urinary retention Retention of urine, unspecified Screening for ischemic heart disease Prediabetes Other abnormal glucose Intractable chronic migraine with aura with status migrainosus Obesity, Class III, BMI 40-49.9 (morbid obesity) ([facility]) Morbid obesity Weakness- Primary Other malaise and fatigue Pain- Primary Generalized pain Weakness Other malaise and fatigue Schizoaffective disorder, bipolar type ([facility])- Primary Schizoaffective disorder, unspecified condition PTSD (post-traumatic stress disorder) Posttraumatic stress disorder Generalized anxiety disorder Insomnia disorder, persistent, with mental disorder Attention deficit hyperactivity disorder (ADHD), predominantly inattentive type documented in this encounter [employer] Phone: Evaluation note* Diagnosis Gender dysphoria- Primary Gender identity disorder in children Bipolar 1 disorder ([facility]) Bipolar I disorder, most recent episode (or current) unspecified Bipolar 1 disorder ([facility]) Bipolar I disorder, most recent episode (or current) unspecified Other insomnia Gender dysphoria- Primary Gender identity disorder in children Bipolar 1 disorder ([facility]) Bipolar I disorder, most recent episode (or current) unspecified Acne vulgaris Other acne Bleeding after intercourse- Primary Postcoital bleeding Gender dysphoria Gender identity disorder in children Bipolar 1 disorder ([facility]) Bipolar I disorder, most recent episode (or current) unspecified Pelvic pain Reserved for inherently not codable concepts WITHOUT codable children Pelvic pain Reserved for inherently not codable concepts WITHOUT codable children Gender dysphoria Gender identity disorder in children Nicotine use disorder Tobacco use disorder Nicotine use disorder- Primary Tobacco use disorder Gender dysphoria- Primary Gender identity disorder in children Pelvic pain Reserved for inherently not codable concepts WITHOUT codable children Medication management Encounter for long-term (current) use of other medications Bipolar 1 disorder ([facility]) Bipolar I disorder, most recent episode (or current) unspecified Nicotine use disorder- Primary Tobacco use disorder Gender dysphoria- Primary Gender identity disorder in children S/P laparoscopic hysterectomy Acquired absence of both cervix and uterus Gender dysphoria- Primary Gender identity disorder in children Obesity, Class III, BMI 40-49.9 (morbid obesity) ([facility]) Morbid obesity Acne vulgaris Other acne Screening for ischemic heart disease Screening for diabetes mellitus Prediabetes Other abnormal glucose Prediabetes- Primary Other abnormal glucose Weight gain due to medication Other symptoms concerning nutrition, metabolism, and development Obesity, Class III, BMI 40-49.9 (morbid obesity) ([facility])- Primary Morbid obesity Prediabetes Other abnormal glucose Preop examination- Primary Preoperative examination, unspecified Gender dysphoria Gender identity disorder in children Prediabetes Other abnormal glucose Smoking Tobacco use disorder Weight gain due to medication Other symptoms concerning nutrition, metabolism, and development Acne vulgaris Other acne Pelvic pain Reserved for inherently not codable concepts WITHOUT codable children Weight gain due to medication Other symptoms concerning nutrition, metabolism, and development Prediabetes Other abnormal glucose Acne vulgaris Other acne Gender dysphoria Gender identity disorder in children Gender dysphoria- Primary Gender identity disorder in children Gender dysphoria- Primary Gender identity disorder in children Acne vulgaris Other acne Prediabetes Other abnormal glucose Screening for thyroid disorder Obesity, Class III, BMI 40-49.9 (morbid obesity) ([facility]) Morbid obesity Transaminitis Nonspecific elevation of levels of transaminase or lactic acid dehydrogenase (LDH) Elevated liver enzymes- Primary Other nonspecific abnormal serum enzyme levels Diarrhea, unspecified type Prediabetes Other abnormal glucose Obesity, Class III, BMI 40-49.9 (morbid obesity) ([facility]) Morbid obesity Gender dysphoria Gender identity disorder in children Screening for ischemic heart disease Pelvic pain Reserved for inherently not codable concepts WITHOUT codable children Other migraine with status migrainosus, intractable- Primary Intractable chronic migraine with aura with status migrainosus- Primary Prediabetes Other abnormal glucose Obesity, Class III, BMI 40-49.9 (morbid obesity) ([facility]) Morbid obesity Weight gain due to medication- Primary Other symptoms concerning nutrition, metabolism, and development Other migraine with status migrainosus, intractable Diarrhea, unspecified type Prediabetes Other abnormal glucose Gender dysphoria Gender identity disorder in children Gender dysphoria- Primary Gender identity disorder in children Urinary retention Retention of urine, unspecified Screening for ischemic heart disease Prediabetes Other abnormal glucose Intractable chronic migraine with aura with status migrainosus Obesity, Class III, BMI 40-49.9 (morbid obesity) ([facility]) Morbid obesity Weakness- Primary Other malaise and fatigue Pain- Primary Generalized pain Weakness Other malaise and fatigue Weight gain due to medication- Primary Other symptoms concerning nutrition, metabolism, and development Gender dysphoria Gender identity disorder in children Prediabetes Other abnormal glucose Pain Generalized pain Diarrhea, unspecified type documented in this encounter [employer] Work Phone: Evaluation note* Diagnosis Gender dysphoria- Primary Gender identity disorder in children Bipolar 1 disorder ([facility]) Bipolar I disorder, most recent episode (or current) unspecified Bipolar 1 disorder ([facility]) Bipolar I disorder, most recent episode (or current) unspecified Other insomnia Gender dysphoria- Primary Gender identity disorder in children Bipolar 1 disorder ([facility]) Bipolar I disorder, most recent episode (or current) unspecified Acne vulgaris Other acne Bleeding after intercourse- Primary Postcoital bleeding Gender dysphoria Gender identity disorder in children Bipolar 1 disorder ([facility]) Bipolar I disorder, most recent episode (or current) unspecified Pelvic pain Reserved for inherently not codable concepts WITHOUT codable children Pelvic pain Reserved for inherently not codable concepts WITHOUT codable children Gender dysphoria Gender identity disorder in children Nicotine use disorder Tobacco use disorder Nicotine use disorder- Primary Tobacco use disorder Gender dysphoria- Primary Gender identity disorder in children Pelvic pain Reserved for inherently not codable concepts WITHOUT codable children Medication management Encounter for long-term (current) use of other medications Bipolar 1 disorder ([facility]) Bipolar I disorder, most recent episode (or current) unspecified Nicotine use disorder- Primary Tobacco use disorder Gender dysphoria- Primary Gender identity disorder in children S/P laparoscopic hysterectomy Acquired absence of both cervix and uterus Gender dysphoria- Primary Gender identity disorder in children Obesity, Class III, BMI 40-49.9 (morbid obesity) ([facility]) Morbid obesity Acne vulgaris Other acne Screening for ischemic heart disease Screening for diabetes mellitus Prediabetes Other abnormal glucose Prediabetes- Primary Other abnormal glucose Weight gain due to medication Other symptoms concerning nutrition, metabolism, and development Obesity, Class III, BMI 40-49.9 (morbid obesity) ([facility])- Primary Morbid obesity Prediabetes Other abnormal glucose Preop examination- Primary Preoperative examination, unspecified Gender dysphoria Gender identity disorder in children Prediabetes Other abnormal glucose Smoking Tobacco use disorder Weight gain due to medication Other symptoms concerning nutrition, metabolism, and development Acne vulgaris Other acne Pelvic pain Reserved for inherently not codable concepts WITHOUT codable children Weight gain due to medication Other symptoms concerning nutrition, metabolism, and development Prediabetes Other abnormal glucose Acne vulgaris Other acne Gender dysphoria Gender identity disorder in children Gender dysphoria- Primary Gender identity disorder in children Gender dysphoria- Primary Gender identity disorder in children Acne vulgaris Other acne Prediabetes Other abnormal glucose Screening for thyroid disorder Obesity, Class III, BMI 40-49.9 (morbid obesity) ([facility]) Morbid obesity Transaminitis Nonspecific elevation of levels of transaminase or lactic acid dehydrogenase (LDH) Elevated liver enzymes- Primary Other nonspecific abnormal serum enzyme levels Diarrhea, unspecified type Prediabetes Other abnormal glucose Obesity, Class III, BMI 40-49.9 (morbid obesity) ([facility]) Morbid obesity Gender dysphoria Gender identity disorder in children Screening for ischemic heart disease Pelvic pain Reserved for inherently not codable concepts WITHOUT codable children Other migraine with status migrainosus, intractable- Primary Intractable chronic migraine with aura with status migrainosus- Primary Prediabetes Other abnormal glucose Obesity, Class III, BMI 40-49.9 (morbid obesity) ([facility]) Morbid obesity Weight gain due to medication- Primary Other symptoms concerning nutrition, metabolism, and development Other migraine with status migrainosus, intractable Diarrhea, unspecified type Prediabetes Other abnormal glucose Gender dysphoria Gender identity disorder in children Gender dysphoria- Primary Gender identity disorder in children Urinary retention Retention of urine, unspecified Screening for ischemic heart disease Prediabetes Other abnormal glucose Intractable chronic migraine with aura with status migrainosus Obesity, Class III, BMI 40-49.9 (morbid obesity) ([facility]) Morbid obesity Weakness- Primary Other malaise and fatigue Pain- Primary Generalized pain Weakness Other malaise and fatigue Weight gain due to medication- Primary Other symptoms concerning nutrition, metabolism, and development Gender dysphoria Gender identity disorder in children Prediabetes Other abnormal glucose Pain Generalized pain Diarrhea, unspecified type Schizoaffective disorder, bipolar type ([facility])- Primary Schizoaffective disorder, unspecified condition PTSD (post-traumatic stress disorder) Posttraumatic stress disorder Insomnia disorder, persistent, with mental disorder Attention deficit hyperactivity disorder (ADHD), predominantly inattentive type Daytime hypersomnolence Hypersomnia, unspecified Generalized anxiety disorder documented [facility] this encounter [facility] Work Phone: Evaluation note* Diagnosis Gender dysphoria- Primary Gender identity disorder in children Bipolar 1 disorder ([facility]) Bipolar I disorder, most recent episode (or current) unspecified Bipolar 1 disorder ([facility]) Bipolar I disorder, most recent episode (or current) unspecified Other insomnia Gender dysphoria- Primary Gender identity disorder in children Bipolar 1 disorder ([facility]) Bipolar I disorder, most recent episode (or current) unspecified Acne vulgaris Other acne Bleeding after intercourse- Primary Postcoital bleeding Gender dysphoria Gender identity disorder in children Bipolar 1 disorder ([facility]) Bipolar I disorder, most recent episode (or current) unspecified Pelvic pain Reserved for inherently not codable concepts WITHOUT codable children Pelvic pain Reserved for inherently not codable concepts WITHOUT codable children Gender dysphoria Gender identity disorder in children Nicotine use disorder Tobacco use disorder Nicotine use disorder- Primary Tobacco use disorder Gender dysphoria- Primary Gender identity disorder in children Pelvic pain Reserved for inherently not codable concepts WITHOUT codable children Medication management Encounter for long-term (current) use of other medications Bipolar 1 disorder ([facility]) Bipolar I disorder, most recent episode (or current) unspecified Nicotine use disorder- Primary Tobacco use disorder Gender dysphoria- Primary Gender identity disorder in children S/P laparoscopic hysterectomy Acquired absence of both cervix and uterus Gender dysphoria- Primary Gender identity disorder in children Obesity, Class III, BMI 40-49.9 (morbid obesity) ([facility]) Morbid obesity Acne vulgaris Other acne Screening for ischemic heart disease Screening for diabetes mellitus Prediabetes Other abnormal glucose Prediabetes- Primary Other abnormal glucose Weight gain due to medication Other symptoms concerning nutrition, metabolism, and development Obesity, Class III, BMI 40-49.9 (morbid obesity) ([facility])- Primary Morbid obesity Prediabetes Other abnormal glucose Preop examination- Primary Preoperative examination, unspecified Gender dysphoria Gender identity disorder in children Prediabetes Other abnormal glucose Smoking Tobacco use disorder Weight gain due to medication Other symptoms concerning nutrition, metabolism, and development Acne vulgaris Other acne Pelvic pain Reserved for inherently not codable concepts WITHOUT codable children Weight gain due to medication Other symptoms concerning nutrition, metabolism, and development Prediabetes Other abnormal glucose Acne vulgaris Other acne Gender dysphoria Gender identity disorder in children Gender dysphoria- Primary Gender identity disorder in children Gender dysphoria- Primary Gender identity disorder in children Acne vulgaris Other acne Prediabetes Other abnormal glucose Screening for thyroid disorder Obesity, Class III, BMI 40-49.9 (morbid obesity) ([facility]) Morbid obesity Transaminitis Nonspecific elevation of levels of transaminase or lactic acid dehydrogenase (LDH) Elevated liver enzymes- Primary Other nonspecific abnormal serum enzyme levels Diarrhea, unspecified type Prediabetes Other abnormal glucose Obesity, Class III, BMI 40-49.9 (morbid obesity) ([facility]) Morbid obesity Gender dysphoria Gender identity disorder in children Screening for ischemic heart disease Pelvic pain Reserved for inherently not codable concepts WITHOUT codable children Other migraine with status migrainosus, intractable- Primary Intractable chronic migraine with aura with status migrainosus- Primary Prediabetes Other abnormal glucose Obesity, Class III, BMI 40-49.9 (morbid obesity) ([facility]) Morbid obesity Weight gain due to medication- Primary Other symptoms concerning nutrition, metabolism, and development Other migraine with status migrainosus, intractable Diarrhea, unspecified type Prediabetes Other abnormal glucose Gender dysphoria Gender identity disorder in children Gender dysphoria- Primary Gender identity disorder in children Urinary retention Retention of urine, unspecified Screening for ischemic heart disease Prediabetes Other abnormal glucose Intractable chronic migraine with aura with status migrainosus Obesity, Class III, BMI 40-49.9 (morbid obesity) ([facility]) Morbid obesity Weakness- Primary Other malaise and fatigue Pain- Primary Generalized pain Weakness Other malaise and fatigue Weight gain due to medication- Primary Other symptoms concerning nutrition, metabolism, and development Gender dysphoria Gender identity disorder in children Prediabetes Other abnormal glucose Pain Generalized pain Diarrhea, unspecified type Schizoaffective disorder, bipolar type ([facility])- Primary Schizoaffective disorder, unspecified condition PTSD (post-traumatic stress disorder) Posttraumatic stress disorder Insomnia disorder, persistent, with mental disorder Attention deficit hyperactivity disorder (ADHD), predominantly inattentive type Daytime hypersomnolence Hypersomnia, unspecified Generalized anxiety disorder documented in this encounter [employer] Work Phone: Evaluation note* Diagnosis Gender dysphoria- Primary Gender identity disorder in children Bipolar 1 disorder ([facility]) Bipolar I disorder, most recent episode (or current) unspecified Bipolar 1 disorder ([facility]) Bipolar I disorder, most recent episode (or current) unspecified Other insomnia Gender dysphoria- Primary Gender identity disorder in children Bipolar 1 disorder ([facility]) Bipolar I disorder, most recent episode (or current) unspecified Acne vulgaris Other acne Bleeding after intercourse- Primary Postcoital bleeding Gender dysphoria Gender identity disorder in children Bipolar 1 disorder ([facility]) Bipolar I disorder, most recent episode (or current) unspecified Pelvic pain Reserved for inherently not codable concepts WITHOUT codable children Pelvic pain Reserved for inherently not codable concepts WITHOUT codable children Gender dysphoria Gender identity disorder in children Nicotine use disorder Tobacco use disorder Nicotine use disorder- Primary Tobacco use disorder Gender dysphoria- Primary Gender identity disorder in children Pelvic pain Reserved for inherently not codable concepts WITHOUT codable children Medication management Encounter for long-term (current) use of other medications Bipolar 1 disorder ([facility]) Bipolar I disorder, most recent episode (or current) unspecified Nicotine use disorder- Primary Tobacco use disorder Gender dysphoria- Primary Gender identity disorder in children S/P laparoscopic hysterectomy Acquired absence of both cervix and uterus Gender dysphoria- Primary Gender identity disorder in children Obesity, Class III, BMI 40-49.9 (morbid obesity) Morbid obesity Acne vulgaris Other acne Screening for ischemic heart disease Screening for diabetes mellitus Prediabetes Other abnormal glucose Prediabetes- Primary Other abnormal glucose Weight gain due to medication Other symptoms concerning nutrition, metabolism, and development Obesity, Class III, BMI 40-49.9 (morbid obesity)- Primary Morbid obesity Prediabetes Other abnormal glucose Preop examination- Primary Preoperative examination, unspecified Gender dysphoria Gender identity disorder in children Prediabetes Other abnormal glucose Smoking Tobacco use disorder Weight gain due to medication Other symptoms concerning nutrition, metabolism, and development Acne vulgaris Other acne Pelvic pain Reserved for inherently not codable concepts WITHOUT codable children Weight gain due to medication Other symptoms concerning nutrition, metabolism, and development Prediabetes Other abnormal glucose Acne vulgaris Other acne Gender dysphoria Gender identity disorder in children Gender dysphoria- Primary Gender identity disorder in children Gender dysphoria- Primary Gender identity disorder in children Acne vulgaris Other acne Prediabetes Other abnormal glucose Screening for thyroid disorder Obesity, Class III, BMI 40-49.9 (morbid obesity) Morbid obesity Transaminitis Nonspecific elevation of levels of transaminase or lactic acid dehydrogenase (LDH) Elevated liver enzymes- Primary Other nonspecific abnormal serum enzyme levels Diarrhea, unspecified type Prediabetes Other abnormal glucose Obesity, Class III, BMI 40-49.9 (morbid obesity) Morbid obesity Gender dysphoria Gender identity disorder in children Screening for ischemic heart disease Pelvic pain Reserved for inherently not codable concepts WITHOUT codable children Other migraine with status migrainosus, intractable- Primary Intractable chronic migraine with aura with status migrainosus- Primary Prediabetes Other abnormal glucose Obesity, Class III, BMI 40-49.9 (morbid obesity) Morbid obesity Weight gain due to medication- Primary Other symptoms concerning nutrition, metabolism, and development Other migraine with status migrainosus, intractable Diarrhea, unspecified type Prediabetes Other abnormal glucose Gender dysphoria Gender identity disorder in children Gender dysphoria- Primary Gender identity disorder in children Urinary retention Retention of urine, unspecified Screening for ischemic heart disease Prediabetes Other abnormal glucose Intractable chronic migraine with aura with status migrainosus Obesity, Class III, BMI 40-49.9 (morbid obesity) Morbid obesity Weakness- Primary Other malaise and fatigue Pain- Primary Generalized pain Weakness Other malaise and fatigue Weight gain due to medication- Primary Other symptoms concerning nutrition, metabolism, and development Gender dysphoria Gender identity disorder in children Prediabetes Other abnormal glucose Pain Generalized pain Diarrhea, unspecified type Schizoaffective disorder, bipolar type ([facility]) Schizoaffective disorder, unspecified condition PTSD (post-traumatic stress disorder) Posttraumatic stress disorder Attention deficit hyperactivity disorder (ADHD), predominantly inattentive type Generalized anxiety disorder Daytime hypersomnolence Hypersomnia, unspecified documented in this encounter [employer] Phone: Evaluation note* Diagnosis Gender dysphoria- Primary Gender identity disorder in children Bipolar 1 disorder ([facility]) Bipolar I disorder, most recent episode (or current) unspecified Bipolar 1 disorder ([facility]) Bipolar I disorder, most recent episode (or current) unspecified Other insomnia Gender dysphoria- Primary Gender identity disorder in children Bipolar 1 disorder ([facility]) Bipolar I disorder, most recent episode (or current) unspecified Acne vulgaris Other acne Bleeding after intercourse- Primary Postcoital bleeding Gender dysphoria Gender identity disorder in children Bipolar 1 disorder ([facility]) Bipolar I disorder, most recent episode (or current) unspecified Pelvic pain Reserved for inherently not codable concepts WITHOUT codable children Pelvic pain Reserved for inherently not codable concepts WITHOUT codable children Gender dysphoria Gender identity disorder in children Nicotine use disorder Tobacco use disorder Nicotine use disorder- Primary Tobacco use disorder Gender dysphoria- Primary Gender identity disorder in children Pelvic pain Reserved for inherently not codable concepts WITHOUT codable children Medication management Encounter for long-term (current) use of other medications Bipolar 1 disorder ([facility]) Bipolar I disorder, most recent episode (or current) unspecified Nicotine use disorder- Primary Tobacco use disorder Gender dysphoria- Primary Gender identity disorder in children S/P laparoscopic hysterectomy Acquired absence of both cervix and uterus Gender dysphoria- Primary Gender identity disorder in children Obesity, Class III, BMI 40-49.9 (morbid obesity) Morbid obesity Acne vulgaris Other acne Screening for ischemic heart disease Screening for diabetes mellitus Prediabetes Other abnormal glucose Prediabetes- Primary Other abnormal glucose Weight gain due to medication Other symptoms concerning nutrition, metabolism, and development Obesity, Class III, BMI 40-49.9 (morbid obesity)- Primary Morbid obesity Prediabetes Other abnormal glucose Preop examination- Primary Preoperative examination, unspecified Gender dysphoria Gender identity disorder in children Prediabetes Other abnormal glucose Smoking Tobacco use disorder Weight gain due to medication Other symptoms concerning nutrition, metabolism, and development Acne vulgaris Other acne Pelvic pain Reserved for inherently not codable concepts WITHOUT codable children Weight gain due to medication Other symptoms concerning nutrition, metabolism, and development Prediabetes Other abnormal glucose Acne vulgaris Other acne Gender dysphoria Gender identity disorder in children Gender dysphoria- Primary Gender identity disorder in children Gender dysphoria- Primary Gender identity disorder in children Acne vulgaris Other acne Prediabetes Other abnormal glucose Screening for thyroid disorder Obesity, Class III, BMI 40-49.9 (morbid obesity) Morbid obesity Transaminitis Nonspecific elevation of levels of transaminase or lactic acid dehydrogenase (LDH) Elevated liver enzymes- Primary Other nonspecific abnormal serum enzyme levels Diarrhea, unspecified type Prediabetes Other abnormal glucose Obesity, Class III, BMI 40-49.9 (morbid obesity) Morbid obesity Gender dysphoria Gender identity disorder in children Screening for ischemic heart disease Pelvic pain Reserved for inherently not codable concepts WITHOUT codable children Other migraine with status migrainosus, intractable- Primary Intractable chronic migraine with aura with status migrainosus- Primary Prediabetes Other abnormal glucose Obesity, Class III, BMI 40-49.9 (morbid obesity) Morbid obesity Weight gain due to medication- Primary Other symptoms concerning nutrition, metabolism, and development Other migraine with status migrainosus, intractable Diarrhea, unspecified type Prediabetes Other abnormal glucose Gender dysphoria Gender identity disorder in children Gender dysphoria- Primary Gender identity disorder in children Urinary retention Retention of urine, unspecified Screening for ischemic heart disease Prediabetes Other abnormal glucose Intractable chronic migraine with aura with status migrainosus Obesity, Class III, BMI 40-49.9 (morbid obesity) Morbid obesity Weakness- Primary Other malaise and fatigue Pain- Primary Generalized pain Weakness Other malaise and fatigue Weight gain due to medication- Primary Other symptoms concerning nutrition, metabolism, and development Gender dysphoria Gender identity disorder in children Prediabetes Other abnormal glucose Pain Generalized pain Diarrhea, unspecified type Schizoaffective disorder, bipolar type ([facility]) Schizoaffective disorder, unspecified condition PTSD (post-traumatic stress disorder) Posttraumatic stress disorder Attention deficit hyperactivity disorder (ADHD), predominantly inattentive type Generalized anxiety disorder Daytime hypersomnolence Hypersomnia, unspecified documented in this encounter [employer] Work Phone: Evaluation note* Diagnosis Gender dysphoria- Primary Gender identity disorder in children Bipolar 1 disorder ([facility]) Bipolar I disorder, most recent episode (or current) unspecified Bipolar 1 disorder ([facility]) Bipolar I disorder, most recent episode (or current) unspecified Other insomnia Gender dysphoria- Primary Gender identity disorder in children Bipolar 1 disorder ([facility]) Bipolar I disorder, most recent episode (or current) unspecified Acne vulgaris Other acne Bleeding after intercourse- Primary Postcoital bleeding Gender dysphoria Gender identity disorder in children Bipolar 1 disorder ([facility]) Bipolar I disorder, most recent episode (or current) unspecified Pelvic pain Reserved for inherently not codable concepts WITHOUT codable children Pelvic pain Reserved for inherently not codable concepts WITHOUT codable children Gender dysphoria Gender identity disorder in children Nicotine use disorder Tobacco use disorder Nicotine use disorder- Primary Tobacco use disorder Gender dysphoria- Primary Gender identity disorder in children Pelvic pain Reserved for inherently not codable concepts WITHOUT codable children Medication management Encounter for long-term (current) use of other medications Bipolar 1 disorder ([facility]) Bipolar I disorder, most recent episode (or current) unspecified Nicotine use disorder- Primary Tobacco use disorder Gender dysphoria- Primary Gender identity disorder in children S/P laparoscopic hysterectomy Acquired absence of both cervix and uterus Gender dysphoria- Primary Gender identity disorder in children Obesity, Class III, BMI 40-49.9 (morbid obesity) Morbid obesity Acne vulgaris Other acne Screening for ischemic heart disease Screening for diabetes mellitus Prediabetes Other abnormal glucose Prediabetes- Primary Other abnormal glucose Weight gain due to medication Other symptoms concerning nutrition, metabolism, and development Obesity, Class III, BMI 40-49.9 (morbid obesity)- Primary Morbid obesity Prediabetes Other abnormal glucose Preop examination- Primary Preoperative examination, unspecified Gender dysphoria Gender identity disorder in children Prediabetes Other abnormal glucose Smoking Tobacco use disorder Weight gain due to medication Other symptoms concerning nutrition, metabolism, and development Acne vulgaris Other acne Pelvic pain Reserved for inherently not codable concepts WITHOUT codable children Weight gain due to medication Other symptoms concerning nutrition, metabolism, and development Prediabetes Other abnormal glucose Acne vulgaris Other acne Gender dysphoria Gender identity disorder in children Gender dysphoria- Primary Gender identity disorder in children Gender dysphoria- Primary Gender identity disorder in children Acne vulgaris Other acne Prediabetes Other abnormal glucose Screening for thyroid disorder Obesity, Class III, BMI 40-49.9 (morbid obesity) Morbid obesity Transaminitis Nonspecific elevation of levels of transaminase or lactic acid dehydrogenase (LDH) Elevated liver enzymes- Primary Other nonspecific abnormal serum enzyme levels Diarrhea, unspecified type Prediabetes Other abnormal glucose Obesity, Class III, BMI 40-49.9 (morbid obesity) Morbid obesity Gender dysphoria Gender identity disorder in children Screening for ischemic heart disease Pelvic pain Reserved for inherently not codable concepts WITHOUT codable children Other migraine with status migrainosus, intractable- Primary Intractable chronic migraine with aura with status migrainosus- Primary Prediabetes Other abnormal glucose Obesity, Class III, BMI 40-49.9 (morbid obesity) Morbid obesity Weight gain due to medication- Primary Other symptoms concerning nutrition, metabolism, and development Other migraine with status migrainosus, intractable Diarrhea, unspecified type Prediabetes Other abnormal glucose Gender dysphoria Gender identity disorder in children Gender dysphoria- Primary Gender identity disorder in children Urinary retention Retention of urine, unspecified Screening for ischemic heart disease Prediabetes Other abnormal glucose Intractable chronic migraine with aura with status migrainosus Obesity, Class III, BMI 40-49.9 (morbid obesity) Morbid obesity Weakness- Primary Other malaise and fatigue Pain- Primary Generalized pain Weakness Other malaise and fatigue Weight gain due to medication- Primary Other symptoms concerning nutrition, metabolism, and development Gender dysphoria Gender identity disorder in children Prediabetes Other abnormal glucose Pain Generalized pain Diarrhea, unspecified type Attention deficit hyperactivity disorder (ADHD), predominantly inattentive type Daytime hypersomnolence Hypersomnia, unspecified Generalized anxiety disorder PTSD (post-traumatic stress disorder) Posttraumatic stress disorder Schizoaffective disorder, bipolar type ([facility] Schizoaffective disorder, unspecified condition documented in this encounter [employer] Work Phone: Evaluation note* Diagnosis Gender dysphoria- Primary Gender identity disorder in children Bipolar 1 disorder ([facility]) Bipolar I disorder, most recent episode (or current) unspecified Bipolar 1 disorder ([facility]) Bipolar I disorder, most recent episode (or current) unspecified Other insomnia Gender dysphoria- Primary Gender identity disorder in children Bipolar 1 disorder ([facility]) Bipolar I disorder, most recent episode (or current) unspecified Acne vulgaris Other acne Bleeding after intercourse- Primary Postcoital bleeding Gender dysphoria Gender identity disorder in children Bipolar 1 disorder ([facility]) Bipolar I disorder, most recent episode (or current) unspecified Pelvic pain Reserved for inherently not codable concepts WITHOUT codable children Pelvic pain Reserved for inherently not codable concepts WITHOUT codable children Gender dysphoria Gender identity disorder in children Nicotine use disorder Tobacco use disorder Nicotine use disorder- Primary Tobacco use disorder Gender dysphoria- Primary Gender identity disorder in children Pelvic pain Reserved for inherently not codable concepts WITHOUT codable children Medication management Encounter for long-term (current) use of other medications Bipolar 1 disorder ([facility]) Bipolar I disorder, most recent episode (or current) unspecified Nicotine use disorder- Primary Tobacco use disorder Gender dysphoria- Primary Gender identity disorder in children S/P laparoscopic hysterectomy Acquired absence of both cervix and uterus Gender dysphoria- Primary Gender identity disorder in children Obesity, Class III, BMI 40-49.9 (morbid obesity) Morbid obesity Acne vulgaris Other acne Screening for ischemic heart disease Screening for diabetes mellitus Prediabetes Other abnormal glucose Prediabetes- Primary Other abnormal glucose Weight gain due to medication Other symptoms concerning nutrition, metabolism, and development Obesity, Class III, BMI 40-49.9 (morbid obesity)- Primary Morbid obesity Prediabetes Other abnormal glucose Preop examination- Primary Preoperative examination, unspecified Gender dysphoria Gender identity disorder in children Prediabetes Other abnormal glucose Smoking Tobacco use disorder Weight gain due to medication Other symptoms concerning nutrition, metabolism, and development Acne vulgaris Other acne Pelvic pain Reserved for inherently not codable concepts WITHOUT codable children Weight gain due to medication Other symptoms concerning nutrition, metabolism, and development Prediabetes Other abnormal glucose Acne vulgaris Other acne Gender dysphoria Gender identity disorder in children Gender dysphoria- Primary Gender identity disorder in children Gender dysphoria- Primary Gender identity disorder in children Acne vulgaris Other acne Prediabetes Other abnormal glucose Screening for thyroid disorder Obesity, Class III, BMI 40-49.9 (morbid obesity) Morbid obesity Transaminitis Nonspecific elevation of levels of transaminase or lactic acid dehydrogenase (LDH) Elevated liver enzymes- Primary Other nonspecific abnormal serum enzyme levels Diarrhea, unspecified type Prediabetes Other abnormal glucose Obesity, Class III, BMI 40-49.9 (morbid obesity) Morbid obesity Gender dysphoria Gender identity disorder in children Screening for ischemic heart disease Pelvic pain Reserved for inherently not codable concepts WITHOUT codable children Other migraine with status migrainosus, intractable- Primary Intractable chronic migraine with aura with status migrainosus- Primary Prediabetes Other abnormal glucose Obesity, Class III, BMI 40-49.9 (morbid obesity) Morbid obesity Weight gain due to medication- Primary Other symptoms concerning nutrition, metabolism, and development Other migraine with status migrainosus, intractable Diarrhea, unspecified type Prediabetes Other abnormal glucose Gender dysphoria Gender identity disorder in children Gender dysphoria- Primary Gender identity disorder in children Urinary retention Retention of urine, unspecified Screening for ischemic heart disease Prediabetes Other abnormal glucose Intractable chronic migraine with aura with status migrainosus Obesity, Class III, BMI 40-49.9 (morbid obesity) Morbid obesity Weakness- Primary Other malaise and fatigue Pain- Primary Generalized pain Weakness Other malaise and fatigue Weight gain due to medication- Primary Other symptoms concerning nutrition, metabolism, and development Gender dysphoria Gender identity disorder in children Prediabetes Other abnormal glucose Pain Generalized pain Diarrhea, unspecified type Attention deficit hyperactivity disorder (ADHD), predominantly inattentive type Daytime hypersomnolence Hypersomnia, unspecified Generalized anxiety disorder PTSD (post-traumatic stress disorder) Posttraumatic stress disorder Schizoaffective disorder, bipolar type ([facility]) Schizoaffective disorder, unspecified condition documented in this encounter [facility] Work Phone: Evaluation note* Diagnosis Gender dysphoria- Primary Gender identity disorder in children Bipolar 1 disorder Bipolar I disorder, most recent episode (or current) unspecified Bipolar 1 disorder Bipolar I disorder, most recent episode (or current) unspecified Other insomnia Gender dysphoria- Primary Gender identity disorder in children Bipolar 1 disorder Bipolar I disorder, most recent episode (or current) unspecified Acne vulgaris Other acne Bleeding after intercourse- Primary Postcoital bleeding Gender dysphoria Gender identity disorder in children Bipolar 1 disorder Bipolar I disorder, most recent episode (or current) unspecified Pelvic pain Reserved for inherently not codable concepts WITHOUT codable children Pelvic pain Reserved for inherently not codable concepts WITHOUT codable children Gender dysphoria Gender identity disorder in children Nicotine use disorder Tobacco use disorder Nicotine use disorder- Primary Tobacco use disorder Gender dysphoria- Primary Gender identity disorder in children Pelvic pain Reserved for inherently not codable concepts WITHOUT codable children Medication management Encounter for long-term (current) use of other medications Bipolar 1 disorder Bipolar I disorder, most recent episode (or current) unspecified Nicotine use disorder- Primary Tobacco use disorder Gender dysphoria- Primary Gender identity disorder in children S/P laparoscopic hysterectomy Acquired absence of both cervix and uterus Gender dysphoria- Primary Gender identity disorder in children Obesity, Class III, BMI 40-49.9 (morbid obesity) Morbid obesity Acne vulgaris Other acne Screening for ischemic heart disease Screening for diabetes mellitus Prediabetes Other abnormal glucose Prediabetes- Primary Other abnormal glucose Weight gain due to medication Other symptoms concerning nutrition, metabolism, and development Obesity, Class III, BMI 40-49.9 (morbid obesity)- Primary Morbid obesity Prediabetes Other abnormal glucose Preop examination- Primary Preoperative examination, unspecified Gender dysphoria Gender identity disorder in children Prediabetes Other abnormal glucose Smoking Tobacco use disorder Weight gain due to medication Other symptoms concerning nutrition, metabolism, and development Acne vulgaris Other acne Pelvic pain Reserved for inherently not codable concepts WITHOUT codable children Weight gain due to medication Other symptoms concerning nutrition, metabolism, and development Prediabetes Other abnormal glucose Acne vulgaris Other acne Gender dysphoria Gender identity disorder in children Gender dysphoria- Primary Gender identity disorder in children Gender dysphoria- Primary Gender identity disorder in children Acne vulgaris Other acne Prediabetes Other abnormal glucose Screening for thyroid disorder Obesity, Class III, BMI 40-49.9 (morbid obesity) Morbid obesity Transaminitis Nonspecific elevation of levels of transaminase or lactic acid dehydrogenase (LDH) Elevated liver enzymes- Primary Other nonspecific abnormal serum enzyme levels Diarrhea, unspecified type Prediabetes Other abnormal glucose Obesity, Class III, BMI 40-49.9 (morbid obesity) Morbid obesity Gender dysphoria Gender identity disorder in children Screening for ischemic heart disease Pelvic pain Reserved for inherently not codable concepts WITHOUT codable children Other migraine with status migrainosus, intractable- Primary Intractable chronic migraine with aura with status migrainosus- Primary Prediabetes Other abnormal glucose Obesity, Class III, BMI 40-49.9 (morbid obesity) Morbid obesity Weight gain due to medication- Primary Other symptoms concerning nutrition, metabolism, and development Other migraine with status migrainosus, intractable Diarrhea, unspecified type Prediabetes Other abnormal glucose Gender dysphoria Gender identity disorder in children Gender dysphoria- Primary Gender identity disorder in children Urinary retention Retention of urine, unspecified Screening for ischemic heart disease Prediabetes Other abnormal glucose Intractable chronic migraine with aura with status migrainosus Obesity, Class III, BMI 40-49.9 (morbid obesity) Morbid obesity Weakness- Primary Other malaise and fatigue Pain- Primary Generalized pain Weakness Other malaise and fatigue Weight gain due to medication- Primary Other symptoms concerning nutrition, metabolism, and development Gender dysphoria Gender identity disorder in children Prediabetes Other abnormal glucose Pain Generalized pain Diarrhea, unspecified type Attention deficit hyperactivity disorder (ADHD), predominantly inattentive type Daytime hypersomnolence Hypersomnia, unspecified Generalized anxiety disorder PTSD (post-traumatic stress disorder) Posttraumatic stress disorder Schizoaffective disorder, bipolar type Schizoaffective disorder, unspecified condition documented in this encounter [employer] Phone: Evaluation note* Diagnosis Gender dysphoria- Primary Gender identity disorder in children Bipolar 1 disorder Bipolar I disorder, most recent episode (or current) unspecified Bipolar 1 disorder Bipolar I disorder, most recent episode (or current) unspecified Other insomnia Gender dysphoria- Primary Gender identity disorder in children Bipolar 1 disorder Bipolar I disorder, most recent episode (or current) unspecified Acne vulgaris Other acne Bleeding after intercourse- Primary Postcoital bleeding Gender dysphoria Gender identity disorder in children Bipolar 1 disorder Bipolar I disorder, most recent episode (or current) unspecified Pelvic pain Reserved for inherently not codable concepts WITHOUT codable children Pelvic pain Reserved for inherently not codable concepts WITHOUT codable children Gender dysphoria Gender identity disorder in children Nicotine use disorder Tobacco use disorder Nicotine use disorder- Primary Tobacco use disorder Gender dysphoria- Primary Gender identity disorder in children Pelvic pain Reserved for inherently not codable concepts WITHOUT codable children Medication management Encounter for long-term (current) use of other medications Bipolar 1 disorder Bipolar I disorder, most recent episode (or current) unspecified Nicotine use disorder- Primary Tobacco use disorder Gender dysphoria- Primary Gender identity disorder in children S/P laparoscopic hysterectomy Acquired absence of both cervix and uterus Gender dysphoria- Primary Gender identity disorder in children Obesity, Class III, BMI 40-49.9 (morbid obesity) Morbid obesity Acne vulgaris Other acne Screening for ischemic heart disease Screening for diabetes mellitus Prediabetes Other abnormal glucose Prediabetes- Primary Other abnormal glucose Weight gain due to medication Other symptoms concerning nutrition, metabolism, and development Obesity, Class III, BMI 40-49.9 (morbid obesity)- Primary Morbid obesity Prediabetes Other abnormal glucose Preop examination- Primary Preoperative examination, unspecified Gender dysphoria Gender identity disorder in children Prediabetes Other abnormal glucose Smoking Tobacco use disorder Weight gain due to medication Other symptoms concerning nutrition, metabolism, and development Acne vulgaris Other acne Pelvic pain Reserved for inherently not codable concepts WITHOUT codable children Weight gain due to medication Other symptoms concerning nutrition, metabolism, and development Prediabetes Other abnormal glucose Acne vulgaris Other acne Gender dysphoria Gender identity disorder in children Gender dysphoria- Primary Gender identity disorder in children Gender dysphoria- Primary Gender identity disorder in children Acne vulgaris Other acne Prediabetes Other abnormal glucose Screening for thyroid disorder Obesity, Class III, BMI 40-49.9 (morbid obesity) Morbid obesity Transaminitis Nonspecific elevation of levels of transaminase or lactic acid dehydrogenase (LDH) Elevated liver enzymes- Primary Other nonspecific abnormal serum enzyme levels Diarrhea, unspecified type Prediabetes Other abnormal glucose Obesity, Class III, BMI 40-49.9 (morbid obesity) Morbid obesity Gender dysphoria Gender identity disorder in children Screening for ischemic heart disease Pelvic pain Reserved for inherently not codable concepts WITHOUT codable children Other migraine with status migrainosus, intractable- Primary Intractable chronic migraine with aura with status migrainosus- Primary Prediabetes Other abnormal glucose Obesity, Class III, BMI 40-49.9 (morbid obesity) Morbid obesity Weight gain due to medication- Primary Other symptoms concerning nutrition, metabolism, and development Other migraine with status migrainosus, intractable Diarrhea, unspecified type Prediabetes Other abnormal glucose Gender dysphoria Gender identity disorder in children Gender dysphoria- Primary Gender identity disorder in children Urinary retention Retention of urine, unspecified Screening for ischemic heart disease Prediabetes Other abnormal glucose Intractable chronic migraine with aura with status migrainosus Obesity, Class III, BMI 40-49.9 (morbid obesity) Morbid obesity Weakness- Primary Other malaise and fatigue Pain- Primary Generalized pain Weakness Other malaise and fatigue Weight gain due to medication- Primary Other symptoms concerning nutrition, metabolism, and development Gender dysphoria Gender identity disorder in children Prediabetes Other abnormal glucose Pain Generalized pain Diarrhea, unspecified type Rash- Primary Rash and other nonspecific skin eruption Dizziness Dizziness and giddiness Screening for ischemic heart disease Pain Generalized pain documented in this encounter [facility] Phone: Evaluation note* Diagnosis Gender dysphoria- Primary Gender identity disorder in children Bipolar 1 disorder Bipolar I disorder, most recent episode (or current) unspecified Bipolar 1 disorder Bipolar I disorder, most recent episode (or current) unspecified Other insomnia Gender dysphoria- Primary Gender identity disorder in children Bipolar 1 disorder Bipolar I disorder, most recent episode (or current) unspecified Acne vulgaris Other acne Bleeding after intercourse- Primary Postcoital bleeding Gender dysphoria Gender identity disorder in children Bipolar 1 disorder Bipolar I disorder, most recent episode (or current) unspecified Pelvic pain Reserved for inherently not codable concepts WITHOUT codable children Pelvic pain Reserved for inherently not codable concepts WITHOUT codable children Gender dysphoria Gender identity disorder in children Nicotine use disorder Tobacco use disorder Nicotine use disorder- Primary Tobacco use disorder Gender dysphoria- Primary Gender identity disorder in children Pelvic pain Reserved for inherently not codable concepts WITHOUT codable children Medication management Encounter for long-term (current) use of other medications Bipolar 1 disorder Bipolar I disorder, most recent episode (or current) unspecified Nicotine use disorder- Primary Tobacco use disorder Gender dysphoria- Primary Gender identity disorder in children S/P laparoscopic hysterectomy Acquired absence of both cervix and uterus Gender dysphoria- Primary Gender identity disorder in children Obesity, Class III, BMI 40-49.9 (morbid obesity) Morbid obesity Acne vulgaris Other acne Screening for ischemic heart disease Screening for diabetes mellitus Prediabetes Other abnormal glucose Prediabetes- Primary Other abnormal glucose Weight gain due to medication Other symptoms concerning nutrition, metabolism, and development Obesity, Class III, BMI 40-49.9 (morbid obesity)- Primary Morbid obesity Prediabetes Other abnormal glucose Preop examination- Primary Preoperative examination, unspecified Gender dysphoria Gender identity disorder in children Prediabetes Other abnormal glucose Smoking Tobacco use disorder Weight gain due to medication Other symptoms concerning nutrition, metabolism, and development Acne vulgaris Other acne Pelvic pain Reserved for inherently not codable concepts WITHOUT codable children Weight gain due to medication Other symptoms concerning nutrition, metabolism, and development Prediabetes Other abnormal glucose Acne vulgaris Other acne Gender dysphoria Gender identity disorder in children Gender dysphoria- Primary Gender identity disorder in children Gender dysphoria- Primary Gender identity disorder in children Acne vulgaris Other acne Prediabetes Other abnormal glucose Screening for thyroid disorder Obesity, Class III, BMI 40-49.9 (morbid obesity) Morbid obesity Transaminitis Nonspecific elevation of levels of transaminase or lactic acid dehydrogenase (LDH) Elevated liver enzymes- Primary Other nonspecific abnormal serum enzyme levels Diarrhea, unspecified type Prediabetes Other abnormal glucose Obesity, Class III, BMI 40-49.9 (morbid obesity) Morbid obesity Gender dysphoria Gender identity disorder in children Screening for ischemic heart disease Pelvic pain Reserved for inherently not codable concepts WITHOUT codable children Other migraine with status migrainosus, intractable- Primary Intractable chronic migraine with aura with status migrainosus- Primary Prediabetes Other abnormal glucose Obesity, Class III, BMI 40-49.9 (morbid obesity) Morbid obesity Weight gain due to medication- Primary Other symptoms concerning nutrition, metabolism, and development Other migraine with status migrainosus, intractable Diarrhea, unspecified type Prediabetes Other abnormal glucose Gender dysphoria Gender identity disorder in children Gender dysphoria- Primary Gender identity disorder in children Urinary retention Retention of urine, unspecified Screening for ischemic heart disease Prediabetes Other abnormal glucose Intractable chronic migraine with aura with status migrainosus Obesity, Class III, BMI 40-49.9 (morbid obesity) Morbid obesity Weakness- Primary Other malaise and fatigue Pain- Primary Generalized pain Weakness Other malaise and fatigue Weight gain due to medication- Primary Other symptoms concerning nutrition, metabolism, and development Gender dysphoria Gender identity disorder in children Prediabetes Other abnormal glucose Pain Generalized pain Diarrhea, unspecified type Attention deficit hyperactivity disorder (ADHD), predominantly inattentive type Daytime hypersomnolence Hypersomnia, unspecified Generalized anxiety disorder PTSD (post-traumatic stress disorder) Posttraumatic stress disorder Schizoaffective disorder, bipolar type Schizoaffective disorder, unspecified condition Attention deficit hyperactivity disorder (ADHD), predominantly inattentive type Daytime hypersomnolence Hypersomnia, unspecified Generalized anxiety disorder PTSD (post-traumatic stress disorder) Posttraumatic stress disorder Schizoaffective disorder, bipolar type Schizoaffective disorder, unspecified condition documented in this encounter [facility] [employer] Work Phone: Evaluation note* Diagnosis Gender dysphoria- Primary Gender identity disorder in children Bipolar 1 disorder Bipolar I disorder, most recent episode (or current) unspecified Bipolar 1 disorder Bipolar I disorder, most recent episode (or current) unspecified Other insomnia Gender dysphoria- Primary Gender identity disorder in children Bipolar 1 disorder Bipolar I disorder, most recent episode (or current) unspecified Acne vulgaris Other acne Bleeding after intercourse- Primary Postcoital bleeding Gender dysphoria Gender identity disorder in children Bipolar 1 disorder Bipolar I disorder, most recent episode (or current) unspecified Pelvic pain Reserved for inherently not codable concepts WITHOUT codable children Pelvic pain Reserved for inherently not codable concepts WITHOUT codable children Gender dysphoria Gender identity disorder in children Nicotine use disorder Tobacco use disorder Nicotine use disorder- Primary Tobacco use disorder Gender dysphoria- Primary Gender identity disorder in children Pelvic pain Reserved for inherently not codable concepts WITHOUT codable children Medication management Encounter for long-term (current) use of other medications Bipolar 1 disorder Bipolar I disorder, most recent episode (or current) unspecified Nicotine use disorder- Primary Tobacco use disorder Gender dysphoria- Primary Gender identity disorder in children S/P laparoscopic hysterectomy Acquired absence of both cervix and uterus Gender dysphoria- Primary Gender identity disorder in children Obesity, Class III, BMI 40-49.9 (morbid obesity) Morbid obesity Acne vulgaris Other acne Screening for ischemic heart disease Screening for diabetes mellitus Prediabetes Other abnormal glucose Prediabetes- Primary Other abnormal glucose Weight gain due to medication Other symptoms concerning nutrition, metabolism, and development Obesity, Class III, BMI 40-49.9 (morbid obesity)- Primary Morbid obesity Prediabetes Other abnormal glucose Preop examination- Primary Preoperative examination, unspecified Gender dysphoria Gender identity disorder in children Prediabetes Other abnormal glucose Smoking Tobacco use disorder Weight gain due to medication Other symptoms concerning nutrition, metabolism, and development Acne vulgaris Other acne Pelvic pain Reserved for inherently not codable concepts WITHOUT codable children Weight gain due to medication Other symptoms concerning nutrition, metabolism, and development Prediabetes Other abnormal glucose Acne vulgaris Other acne Gender dysphoria Gender identity disorder in children Gender dysphoria- Primary Gender identity disorder in children Gender dysphoria- Primary Gender identity disorder in children Acne vulgaris Other acne Prediabetes Other abnormal glucose Screening for thyroid disorder Obesity, Class III, BMI 40-49.9 (morbid obesity) Morbid obesity Transaminitis Nonspecific elevation of levels of transaminase or lactic acid dehydrogenase (LDH) Elevated liver enzymes- Primary Other nonspecific abnormal serum enzyme levels Diarrhea, unspecified type Prediabetes Other abnormal glucose Obesity, Class III, BMI 40-49.9 (morbid obesity) Morbid obesity Gender dysphoria Gender identity disorder in children Screening for ischemic heart disease Pelvic pain Reserved for inherently not codable concepts WITHOUT codable children Other migraine with status migrainosus, intractable- Primary Intractable chronic migraine with aura with status migrainosus- Primary Prediabetes Other abnormal glucose Obesity, Class III, BMI 40-49.9 (morbid obesity) Morbid obesity Weight gain due to medication- Primary Other symptoms concerning nutrition, metabolism, and development Other migraine with status migrainosus, intractable Diarrhea, unspecified type Prediabetes Other abnormal glucose Gender dysphoria Gender identity disorder in children Gender dysphoria- Primary Gender identity disorder in children Urinary retention Retention of urine, unspecified Screening for ischemic heart disease Prediabetes Other abnormal glucose Intractable chronic migraine with aura with status migrainosus Obesity, Class III, BMI 40-49.9 (morbid obesity) Morbid obesity Weakness- Primary Other malaise and fatigue Pain- Primary Generalized pain Weakness Other malaise and fatigue Weight gain due to medication- Primary Other symptoms concerning nutrition, metabolism, and development Gender dysphoria Gender identity disorder in children Prediabetes Other abnormal glucose Pain Generalized pain Diarrhea, unspecified type Primary narcolepsy without cataplexy- Primary Attention deficit hyperactivity disorder (ADHD), predominantly inattentive type Daytime hypersomnolence Hypersomnia, unspecified Generalized anxiety disorder PTSD (post-traumatic stress disorder) Posttraumatic stress disorder Attention deficit hyperactivity disorder (ADHD), predominantly inattentive type Daytime hypersomnolence Hypersomnia, unspecified Generalized anxiety disorder PTSD (post-traumatic stress disorder) Posttraumatic stress disorder Schizoaffective disorder, bipolar type Schizoaffective disorder, unspecified condition documented in this encounter [employer] Work Phone: Evaluation note* Diagnosis Gender dysphoria- Primary Gender identity disorder in children Bipolar 1 disorder Bipolar I disorder, most recent episode (or current) unspecified Gender dysphoria- Primary Gender identity disorder in children Bipolar 1 disorder Bipolar I disorder, most recent episode (or current) unspecified Acne vulgaris Other acne Bleeding after intercourse- Primary Postcoital bleeding Gender dysphoria Gender identity disorder in children Bipolar 1 disorder Bipolar I disorder, most recent episode (or current) unspecified Pelvic pain Reserved for inherently not codable concepts WITHOUT codable children Pelvic pain Reserved for inherently not codable concepts WITHOUT codable children Gender dysphoria Gender identity disorder in children Nicotine use disorder Tobacco use disorder Nicotine use disorder- Primary Tobacco use disorder Gender dysphoria- Primary Gender identity disorder in children Pelvic pain Reserved for inherently not codable concepts WITHOUT codable children Medication management Encounter for long-term (current) use of other medications Bipolar 1 disorder Bipolar I disorder, most recent episode (or current) unspecified Nicotine use disorder- Primary Tobacco use disorder Gender dysphoria- Primary Gender identity disorder in children S/P laparoscopic hysterectomy Acquired absence of both cervix and uterus Gender dysphoria- Primary Gender identity disorder in children Obesity, Class III, BMI 40-49.9 (morbid obesity) Morbid obesity Acne vulgaris Other acne Screening for ischemic heart disease Screening for diabetes mellitus Prediabetes Other abnormal glucose Prediabetes- Primary Other abnormal glucose Weight gain due to medication Other symptoms concerning nutrition, metabolism, and development Obesity, Class III, BMI 40-49.9 (morbid obesity)- Primary Morbid obesity Prediabetes Other abnormal glucose Preop examination- Primary Preoperative examination, unspecified Gender dysphoria Gender identity disorder in children Prediabetes Other abnormal glucose Smoking Tobacco use disorder Weight gain due to medication Other symptoms concerning nutrition, metabolism, and development Acne vulgaris Other acne Pelvic pain Reserved for inherently not codable concepts WITHOUT codable children Weight gain due to medication Other symptoms concerning nutrition, metabolism, and development Prediabetes Other abnormal glucose Acne vulgaris Other acne Gender dysphoria Gender identity disorder in children Gender dysphoria- Primary Gender identity disorder in children Gender dysphoria- Primary Gender identity disorder in children Acne vulgaris Other acne Prediabetes Other abnormal glucose Screening for thyroid disorder Obesity, Class III, BMI 40-49.9 (morbid obesity) Morbid obesity Transaminitis Nonspecific elevation of levels of transaminase or lactic acid dehydrogenase (LDH) Elevated liver enzymes- Primary Other nonspecific abnormal serum enzyme levels Diarrhea, unspecified type Prediabetes Other abnormal glucose Obesity, Class III, BMI 40-49.9 (morbid obesity) Morbid obesity Gender dysphoria Gender identity disorder in children Screening for ischemic heart disease Pelvic pain Reserved for inherently not codable concepts WITHOUT codable children Other migraine with status migrainosus, intractable- Primary Intractable chronic migraine with aura with status migrainosus- Primary Prediabetes Other abnormal glucose Obesity, Class III, BMI 40-49.9 (morbid obesity) Morbid obesity Weight gain due to medication- Primary Other symptoms concerning nutrition, metabolism, and development Other migraine with status migrainosus, intractable Diarrhea, unspecified type Prediabetes Other abnormal glucose Gender dysphoria Gender identity disorder in children Gender dysphoria- Primary Gender identity disorder in children Urinary retention Retention of urine, unspecified Screening for ischemic heart disease Prediabetes Other abnormal glucose Intractable chronic migraine with aura with status migrainosus Obesity, Class III, BMI 40-49.9 (morbid obesity) Morbid obesity Weakness- Primary Other malaise and fatigue Pain- Primary Generalized pain Weakness Other malaise and fatigue Weight gain due to medication- Primary Other symptoms concerning nutrition, metabolism, and development Gender dysphoria Gender identity disorder in children Prediabetes Other abnormal glucose Pain Generalized pain Diarrhea, unspecified type Moderate episode of recurrent major depressive disorder- Primary Attention deficit hyperactivity disorder (ADHD), predominantly inattentive type Daytime hypersomnolence Hypersomnia, unspecified Generalized anxiety disorder PTSD (post-traumatic stress disorder) Posttraumatic stress disorder documented in this encounter [facility] Phone: Hospital Discharge instructions Additional Instructions Follow-up with your pelvic specialist as scheduled.[facility] Work Phone: Reason for referral (narrative)* Medication Prior Authorization - Pending Review Specialty Diagnoses / Procedures Referred By Kiara sinclair Referred To Contact Diagnoses Daytime hypersomnolence Ajit Paulino APRN [address] [place] [address] Phone: tel: fax: Referral ID Status Reason Start Date Expiration Date V isits Requested Visits Authorized [id number] Pending Review 1 1 [facility] Phone: Reason for referral (narrative)* Medication Prior Authorization - Pending Review Specialty Diagnoses / Procedures Referred By Kiara sinclair Referred To Contact Diagnoses Daytime hypersomnolence Ajit Paulino APRN [address] [place] [address] Phone: tel: fax: Referral ID Status Reason Start Date Expiration Date V isits Requested Visits Authorized [id number] Pending Review 1 1 [employer] Phone: Summary Purpose Family History No Family History Records FoundNo Family History Records Found No data available for this section No Family History Records Found No data available for this section No Family History Records FoundNo Family History Records FoundNo Family History Records FoundNo Family History Records FoundNo Family History Records FoundNo Family History Records FoundNo Family History Records FoundNo Family History Records Found Advance Directives No Advanced Directives Records Found Advance Directive Response Recorded Date/ Time Living Will No December 29, 2021 11:11am Power of Utility Locator No December 29 11:11am Advance Directive Response Recorded Date/ Time Living Will No October 07, 2022 5:24pm Power of Utility Locator No October 07 5:24pm Documents on File Type Date Recorded Patient Claim Adjuster Expl anation Authorization to Release Information 10/24/2022 12:00 AM MEDICAL RECORDS RELEASE FORM Authorization to Release Information 04/01/2022 12:00 AM MEDICAL RECORDS RELEASE FORM Chief Complaint and Reason for Visit Chief Complaint 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 CYSTO Chief Complaint PELVIC PAIN Health Concerns Assessment Noted Time PHQ-9 Depression Total Score: 21 023 1:59 PM PST Assessment Noted Time PHQ-9 Depression Total Score: 21 023 1:59 PM PST Assessment Noted Time PHQ-9 Depression Total Score: 20 023 2:11 PM PDT Assessment Noted Time PHQ-9 Depression Total Score: 0 05/17/20 23 10:52 AM PST Assessment Noted Time PHQ-9 Depression Total Score: 0 05/17/20 23 10:52 AM PST Assessment Noted Time PHQ-9 Depression Total Score: 0 08/08/19 24 11:02 AM PST Assessment Noted Time PHQ-9 Depression Total Score: 0 08/08/19 24 11:02 AM PST Assessment Noted Time PHQ-9 Depression Total Score: 9 01/21/20 24 11:10 AM PDT Assessment Noted Time PHQ-9 Depression Total Score: 9 01/21/20 24 11:10 AM PDT Assessment Noted Time PHQ-9 Depression Total Score: 20 024 10:14 AM PST Assessment Noted Time PHQ-9 Depression Total Score: 20 024 10:14 AM PST Assessment Noted Time PHQ-9 Depression Total Score: 20 024 10:14 AM PST A Depression follow-up plan has been documented for the patient 10/26/2021 2:26 PM PDT Reason for Referral Specialty Diagnoses / Procedures Referred By Kiara t Referred To Contact Diagnoses Obesity, Class III, BMI 40-49.9 (morbid obesity) ([facility]) Prediabetes Annamaria Healy PA [address] [place] [address] Referral ID Status Reason Start Date Expiration Date Visits Re quested Visits Authorized [id number] Closed 1 1 Specialty Diagnoses / Procedures Referred By Contac t Referred To Contact Diagnoses Obesity, Class III, BMI 40-49.9 (morbid obesity) ([facility]) Margarita Kelly APRN,[employer] [address] [facility] [address] [place] [address] Referral ID Status Reason Start Date Expiration Date Visits Requested Visits Authorized [id number] New Request Specialty Services Required 07/27/2023 07/26/2024 1 1 Specialty Diagnoses / Procedures Referred By Contac t Referred To Contact Diagnoses Gender dysphoria Margarita Kelly APRN,[employer] [address] [facility] [address] [place] [address] Referral ID Status Reason Start Date Expiration Date V isits Requested Visits Authorized [id number] Pending Review 1 1 Specialty Diagnoses / Procedures Referred By Contac t Referred To Contact Diagnoses Prediabetes Obesity, Class III, BMI 40-49.9 (morbid obesity) ([facility]) Andrew Turpin APRN,[employer] [address] [facility] [address] [place] [address] Referral ID Status Reason Start Date Expiration Date V isits Requested Visits Authorized [id number] Pending Review 1 1 Specialty Diagnoses / Procedures Referred By Contac t Referred To Contact Gastroenterology Diagnoses Diarrhea, unspecified type Andrew Turpin APRN,[employer] [address] [facility] [address] [place] [address] Referral ID Status Reason Start Date Expiration Date Visits Requested Visits Authorized [id number] New Request Specialty Services Required 08/08/2023 08/07/[address] Alexsander Perez MD in [place] Specialty Diagnoses / Procedures Referred By Contac t Referred To Contact Sleep Medicine - Psych/Neurology Diagnoses Insomnia disorder, persistent, with mental disorder Ajit Paulino APRN [address] [place] [address] Referral ID Status Reason Start Date Expiration Date Visits Requested Visits Authorized [id number] New Request Specialty Services Required 09/06/2023 09/05/2024 1 1 Comments Pt has never had sleep study and reports extremely poor sleep initiation and maintenance despite being on several highly sedating psych meds Specialty Diagnoses / Procedures Referred By Contac t Referred To Contact Neurology Diagnoses Other migraine with status migrainosus, intractable Andrew Turpin, 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,[employer] [address] [place] [address] Referral ID Status Reason Start Date Expiration Date Visits Requested Visits Authorized [id number] New Request Specialty Services Required 09/14/2023 09/13/2024 1 [address] and migraines Specialty Diagnoses / Procedures Referred By Contac t Referred To Contact Diagnoses Prediabetes Weight gain due to medication Andrew Turpin, 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 [address] [place] [address] Referral ID Status Reason Start Date Expiration Date V isits Requested Visits Authorized [id number] Pending Review 1 1 Specialty Diagnoses / Procedures Referred By Contac t Referred To Contact Diagnoses Gender dysphoria Andrew Turpin, 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 [address] [place] [id number] Referral ID Status Reason Start Date Expiration Date V isits Requested Visits Authorized [id number] Pending Review 1 1 Specialty Diagnoses / Procedures Referred By Contac t Referred To Contact Rheumatology Diagnoses Weakness Andrew Turpin 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 [address] [place] [id number] Referral ID Status Reason Start Date Expiration Date Visits Requested Visits Authorized [id number] New Request Specialty Services Required 05/12/2025 1 1 Comments Progressively worsening weakness, neurology suggests seeing rheum Additional Source Comments INFORMATION SOURCE (unrecogn ized section and content) DATE CREATED AUTHOR 06/11/2018 Jaleel Torres [facility] DATE CREATED AUTHOR AUTHOR'S ORGANIZ ATION 10/08/2022 [facility] DATE CREATED AUTHOR AUTHOR'S ORGANIZ ATION 09/03/2023 [facility] DATE CREATED AUTHOR AUTHOR'S ORGANIZ ATION 09/08/2023 [facility] ([place]) DATE CREATED AUTHOR AUTHOR'S ORGANIZ ATION [facility]20[facility] DATE CREATED AUTHOR AUTHOR'S ORGANIZ ATION 05/03/2024 [facility] DATE CREATED AUTHOR AUTHOR'S ORGANIZ ATION 05/07/2024 [facility] DATE CREATED AUTHOR AUTHOR'S ORGANIZ ATION 05/30/2024 [facility] DATE CREATED AUTHOR AUTHOR'S ORGANIZ ATION 02/09/2025 [facility] DATE CREATED AUTHOR AUTHOR'S ORGANIZ ATION 04/18/2025 [facility] DATE CREATED AUTHOR AUTHOR'S ORGANIZ ATION 04/28/2025 [facility] Reason for Visit (unrecogniz ed section and content) Reason Comments Follow Up Reason Comments Health Maintenance Meds for pre-diabete sPt states Wellbutrin is causing fatigue, feels like a zombie Reason Comments Pre-operative Exam Reason Onset Date Comments Pelvic Pain 10/07/2022 Reason Comments Anxiety Follow Up Medication Management Transfer from Tawnya Lynch APRN Reason Comments Bipolar Disorder Follow Up Medication [...] Reason Comments Psychosis Follow Up Medication Management Reason Comments Headache Reason Comments Medication Management Anxiety; Mood D/o Reason Comments Mood Disorder Follow Up Medication Management Reason Comments Gender Affirming Hormone Therapy Prescription Refill Request Reason Comments Mood Disorder Medication Management Follow Up Attention Deficit Reason Comments Bipolar Disorder Follow Up Medication Management Attention Deficit Reason Comments Gender Affirming Hormone Therapy Medicat ion check -- Labs Reason Comments Follow Up Neuro appt- neuro dr Ovalles does not believe certain issues were neurological Reason Comments Mood Disorder Anxiety Follow Up Medication Management Reason Comments Pain Management Pain has worsened si nce last visit. More intense and spreading from top of neck to feet Reason Comments Follow Up Medication Management Depression Anxiety Attention Deficit Reason Comments Prescription Refill Request Ozempic Reason Comments Follow Up Medication Management Mood Disorder Reason Comments Gender Affirming Hormone Therapy Discuss policies Prescription Refill Request Nausea Zofran refill Reason Comments Follow Up Medication Management Mood Disorder Reason Comments Follow Up Medication Management Attention Deficit Anxiety Bipolar Disorder Reason Comments Follow Up Medication Management Mood Disorder Autism Reason Comments Medication Management Follow Up Mood Disorder Anxiety Reason Comments Rash Appeared 2 weeks ago , above knee on thigh and then spread to inner thigh, has tried OTC and they have not worked Dizziness Worsened in the lat 2 months, happens daily. Happens randomly. Vision goes dark and blurry. Body feels hot and prickly all over. Loses balance during these episodes. Loses endband cutter hand strength Reason Comments Follow Up Medication Management Anxiety Depression Attention Deficit Sleep Problem Care Teams (unrecognized sec tion and content) [employer] Relationship Specialty Start Date End Date Annamaria Healy PA [address] [place] [address] PCP - General [facility] 01/18/22 [employer] Relationship Specialty Start Date End Date Annamaria Healy PA [address] [place] [address] PCP - General [facility] 01/18/22 Mobile Application Architect Relationship Specialty Start Date End Date Annamaria Healy PA [address] [place] [address] PCP - General [facility] 01/18/22 Mobile Application Architect Relationship Specialty Start Date End Date Annamaria Healy PA [address] [place] [address] PCP - General [facility] 01/18/22 Mobile Application Architect Relationship Specialty Start Date End Date Annamaria Healy PA [address] [place] [address] PCP - General [facility] 01/18/22 Mobile Application Architect Relationship Specialty Start Date End Date Annamaria Healy PA [address] [place] [address] PCP - General [facility] 01/18/22 Mobile Application Architect Relationship Specialty Start Date End Date Roma Healy [address] [address] PCP - General Pediatrics 09/21/22 Team Status: Inactive Member Role Status Dates Dr. Steffanie Quintanilla MD Emergency Provider Active [employer] Relationship Specialty Start Date End Date Annamaria Healy PA [address] [place] [address] PCP - General [facility] 01/18/22 Mobile Application Architect Relationship Specialty Start Date End Date Annamaria Healy PA [address] [place] [address] PCP - General [facility] 01/18/22 Mobile Application Architect Relationship Specialty Start Date End Date Annamaria Healy PA [address] [place] [address] PCP - General [facility] 01/18/22 Mobile Application Architect Relationship Specialty Start Date End Date Annamaria Healy PA [address] [place] [address] PCP - General [facility] 01/18/22 Mobile Application Architect Relationship Specialty Start Date End Date Annamaria Healy PA [address] [place] [address] PCP - General [facility] 01/18/22 Mobile Application Architect Relationship Specialty Start Date End Date Annamaira Healy PA [address] [place] [address] PCP - General [facility] 01/18/22 Mobile Application Architect Relationship Specialty Start Date End Date Annamaria Healy PA [address] [place] [address] PCP - General [facility] 01/18/22 Mobile Application Architect Relationship Specialty Start Date End Date Andrew Turpin APRN,ERICH [address] [place] [address] PCP - General [employer] Nurse Practitioner 08/29/23 Mobile Application Architect Relationship Specialty Start Date End Date Andrew Turpin APRN,[employer] [address] [place] [address] PCP - General [employer] Nurse Practitioner 08/29/23 Mobile Application Architect Relationship Specialty Start Date End Date Andrew Turpin APRN,[employer] [address] [place] [address] PCP - General [employer] Nurse Practitioner 08/29/23 Mobile Application Architect Relationship Specialty Start Date End Date Andrew Turpin APRN,[employer] [address] [place] [address] PCP - General [employer] Nurse Practitioner 08/29/23 Mobile Application Architect Relationship Specialty Start Date End Date Andrew Turpin APRN,[employer] [address] [place] [address] PCP - General [employer] Nurse Practitioner 08/29/23 Mobile Application Architect Relationship Specialty Start Date End Date Andrew Turpin APRN,[employer] [address] [place] [id number] PCP - General [employer] Nurse Practitioner 08/29/23 Mobile Application Architect Relationship Specialty Start Date End Date Andrew Turpin APRN,[employer] [address] [address] PCP - General [employer] Nurse Practitioner 08/29/23 Mobile Application Architect Relationship Specialty Start Date End Date Andrew Turpin APRN,[employer] [address] [place] [address] PCP - General [employer] Nurse Practitioner 08/29/23 Mobile Application Architect Relationship Specialty Start Date End Date Andrew Turpin APRN,[employer] [address] [place] [id number] PCP - General [employer] Nurse Practitioner 08/29/23 Mobile Application Architect Relationship Specialty Start Date End Date Andrew Turpin APRN,[employer] [address] [place] [address] PCP - General [employer] Nurse Practitioner 08/29/23 Mobile Application Architect Relationship Specialty Start Date End Date Andrew Turpin APRN,[employer] [address] [place] [id number] PCP - General [employer] Nurse Practitioner 08/29/23 Mobile Application Architect Relationship Specialty Start Date End Date Andrew Turpin APRN,[employer] [address] [place] [id number] PCP - General TAI [employer] Nurse Practitioner 08/29/23 Mobile Application Architect Relationship Specialty Start Date End Date Andrew Turpin 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,[employer] [address] [place] [address] PCP - General TAI [employer] Nurse Practitioner 08/29/23 Mobile Application Architect Relationship Specialty Start Date End Date Andrew Turpin 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,[employer] [address] [place] [address] PCP - General TAI [employer] Nurse Practitioner 08/29/23 Mobile Application Architect Relationship Specialty Start Date End Date Anderw Turpin APRN,S[employer] [address] [place] [id number] PCP - General TAI [employer] Nurse Practitioner 08/29/23 Mobile Application Architect Relationship Specialty Start Date End Date Andrew Turpin APRN,S[employer] [address] [place] [id number] PCP - General TAI [employer] Nurse Practitioner 08/29/23 Mobile Application Architect Relationship Specialty Start Date End Date Andrew Turpin APRN,S[employer] [address] [facility] [place] [id number] PCP - General TAI [employer] Nurse Practitioner 08/29/23 Mobile Application Architect Relationship Specialty Start Date End Date Andrew Turpin APRN,S[employer] [address] [facility] [place] [id number] PCP - General TAI [employer] Nurse Practitioner 08/29/23 Mobile Application Architect Relationship Specialty Start Date End Date Andrew Turpin APRN,[employer] [address] [facility] [place] [id number] PCP - General TAI [employer] IN[employer] Nurse Practitioner 08/29/23 Mobile Application Architect Relationship Specialty Start Date End Date Andrew Turpin APRN,S[employer] [address] [facility] [place] [id number] PCP - General TAI [employer] Nurse Practitioner 08/29/23 Mobile Application Architect Relationship Specialty Start Date End Date Andrew Turpin APRN,S[employer] [address] [place] [id number] PCP - General TAI [employer] Nurse Practitioner 08/29/23 Mobile Application Architect Relationship Specialty Start Date End Date Andrew Turpin APRN,S[employer]FACE [employer] [address] [facility] [address] [place] [id number] PCP - General TAI [employer] IN[employer] Nurse Practitioner 08/29/23 Mobile Application Architect Relationship Specialty Start Date End Date nAdrew Turpin APRN,[employer] [address] [facility] [address] [place] [id number] PCP - General TAI [employer] IN[employer] Nurse Practitioner 08/29/23 Mobile Application Architect Relationship Specialty Start Date End Date Andrew Turpin APRN,[employer] [address] [id number] PCP - General TAI [employer] IN[employer] Nurse Practitioner 08/29/23 Mobile Application Architect Relationship Specialty Start Date End Date Andrew Turpin APRN, CNP [address] [place] [address] PCP - General TAI [employer] Nurse Practitioner 08/29/23 Mobile Application Architect Relationship Specialty Start Date End Date Andrew Turpin APRN, CNP [address] [id number] PCP - General TAI [employer] Nurse Practitioner 08/29/23 Mobile Application Architect Relationship Specialty Start Date End Date Andrew Turpin APRN, CNP [address] [id number] PCP - General TAI [employer] Nurse Practitioner 08/29/23 Mobile Application Architect Relationship Specialty Start Date End Date Andrew Turpin APRN, CNP [address] [id number] PCP - General TAI [employer] IN[employer] Nurse Practitioner 08/29/23 Goals (unrecognized section and content) Goals may be documented in a n alternate section No data available for this section No data available for this section Source Comments (unrecognize d section and content) In the event this informatio n is protected by the Federal Confidentiality of Alcohol and Drug Abuse Patient Records regulations: The Federal rules restrict any use of the information to criminally investigate or prosecute any alcohol or drug abuse patient.[facility] the event this information is protected by the Federal Confidentiality of Alcohol and Drug Abuse Patient Records regulations: The Federal rules restrict any use of the information to criminally investigate or prosecute any alcohol or drug abuse patient.[facility] FOR RECORDS PERTAINING TO PATIENTS WHO [...] BE BASED ON THE PRIMARY CLINICAL RECORDS. [employer] [facility]. provides no warranty or guarantee of the accuracy or completeness of information in this document.
[2025-06-09 20:01] LABS: Anion Gap 12 (5-15); BUN 6 mg/dL (4-19); BUN/Creat Ratio 7.3 RATIO (10-20); Calcium,Total 9.8 mg/dL (7.6-11.0); Carbon Dioxide 26.3 mmol/L (21.0-32.0); Chloride 103 mmol/L (98-108); Estimated Creatinine Clearance 107.33 ml/min (50-250); Glucose 105 mg/dL (70-99); Potassium 3.3 mmol/L (3.3-5.1); Troponin T High Sensitivity < 6 ng/L (<=14)
[2025-06-09 20:11] VITALS: BP 114/70; PULSE 107; RESP 16; O2SAT 98
--- NOTE | 2025-06-09 20:12 | EX.ED.DYSGE1 ---
HPI History of Present Illness Chief Complaint: Palpitations Narrative Narrative: Patient is a 25-year-old female on testosterone replacement, bipolar disorder, migraine headache, anxiety, depression, PTSD who presented to the emergency department with a chief complaint of lightheadedness, palpitations and not feeling well. Patient states that this has been going on for quite some time is not getting any better therefore he came here to be further evaluated. He states that he is lost weight over the last several months as well. He denies any recent travel history denies any history of blood clots. Patient denies any history of IV drug use. [facility] Medical History Narcolepsy Autism Diarrhea Gender dysphoria Obesity, Class III, BMI 40-49.9 (morbid obesity) Acne vulgaris Weight gain due to medication Abnormal movements Prediabetes Elevated liver enzymes Blood in stool Syncope History of nenita History of ADHD Smoker Pelvic pain Transgender Loss of hearing Wears glasses Under care of mental health counselor Suicidal ideation Bipolar 1 disorder Nightmare disorder Herpes genitalia Eating disorder Hypoglycemia Restless legs Back pain Migraine headache Shortness of breath on exertion Leg cramps Asthma COVID Depression Anxiety PTSD (post-traumatic stress disorder) Home Medications ?Medication ?Instructions ?Recorded ?Last Taken ?Type testosterone cypionate 200 mg/mL 100 mg IM QWEEK 11/18/21 06/02/25 History intramuscular kit omeprazole 40 mg capsule,delayed 40 mg PO DAILY 09/07/23 Unknown History release clonazepam 0.5 mg tablet 0.5 mg PO QHS 06/09/25 Unknown History dextroamphetamine-amphetamine 15 1 tab PO TID 06/09/25 06/09/25 History mg tablet metformin 500 mg tablet,extended 500 mg PO BID 06/09/25 Unknown History release 24 hr ondansetron HCl 8 mg tablet 8 mg PO Q8H PRN PRN nausea 06/09/25 Unknown History pregabalin 150 mg capsule 150 mg PO BID 06/09/25 Unknown History rimegepant 75 mg disintegrating 75 mg PO PRN 06/09/25 Unknown History tablet (Nurtec ODT) solriamfetol 150 mg tablet (Sunosi) 150 mg PO DAILY 06/09/25 06/09/25 History venlafaxine 150 mg 150 mg PO DAILY 06/09/25 Unknown History capsule,extended release 24 hr venlafaxine 75 mg capsule,extended 75 mg PO DAILY 06/09/25 Unknown History release 24 hr Allergy/AdvReac Type Severity Reaction Status Date / Time atomoxetine (From Strattera) Allergy Mild Hives Verified 06/09/25 19:12 acetaminophen (From Percocet) Allergy Rash Verified 06/09/25 19:12 oxycodone (From Percocet) Allergy Rash Verified 06/09/25 19:12 adhesive tape AdvReac RED SKIN Verified 06/09/25 19:12 quetiapine (From Seroquel) AdvReac Other Verified 06/09/25 19:12 sertraline (From Zoloft) AdvReac Other Verified 06/09/25 19:12 Family History Mother , Suicide Abuse, drug or alcohol Depression Chronic mental illness Ovarian cancer Grandmother Cervical cancer Surgical History S/P total abdominal hysterectomy and bilateral salpingo-oophorectomy H/O mastectomy No history of previous surgery Social History number of children: 2 Smoking Status: Current every day smoker tobacco type: cigarettes alcohol intake: current alcohol intake frequency: a few times a week ROS ROS ED ROS Narrative Constitutional: Complains of lightheadedness as noted above denies fevers or chills Eyes: Denies double vision Cardiovascular: Denies chest pain complains of palpitations as noted above Respiratory: Denies shortness of breath Abdomen: Complains of nausea denies vomiting or diarrhea denies abdominal pain : Denies urinary symptoms Neurological: Denies any numbness, weeks, tingling Musculoskeletal: Denies back pain Skin: Denies any rashes or lesions EXAM Physical Exam Narrative Exam Narrative: General: Patient was lying in bed rest comfortably did not appear to be in acute distress Head: Atraumatic, normocephalic Eyes: PERRL bilaterally, EOMI bilaterally, no conjunctival injection noted Neck: Soft, supple, trachea Cardiovascular: Patient tachycardic with a regular rhythm Respiratory: Clear to auscultation bilaterally Abdomen: Soft, nondistended, no tenderness palpation Extremities: +5/5 bilateral upper and lower extremities Neurological: Patient follow commands and that he was at [facility] year is 2024 Skin: Warm, dry, tact no rashes or lesions noted Const Vital Signs: 06/09/25 19:11 06/09/25 19:24 06/09/25 19:24 Temperature 97.2 F L Temperature Source Temporal Pulse Rate 130 H Pulse Rate [Lying] Pulse Rate [Sitting (for 1 minute prior to obtaining)] Pulse Rate [Standing (for 1 minute prior to obtaining)] Respiratory Rate 18 Respiratory Effort Normal Blood Pressure 121/67 H Blood Pressure [Lying] Blood Pressure [Sitting (for 1 minute prior to obtaining)] Blood Pressure [Standing (for 1 minute prior to obtaining)] Blood Pressure Mean 85 Blood Pressure Mean [Lying] Blood Pressure Mean [Sitting (for 1 minute prior to obtaining)] Blood Pressure Mean [Standing (for 1 minute prior to obtaining)] Pulse Ox 100 Oxygen Delivery Method Room Air Room Air 06/09/25 19:36 06/09/25 20:11 06/09/25 21:00 Temperature Temperature Source Pulse Rate 107 H 84 Pulse Rate [Lying] 104 H Pulse Rate [Sitting (for 1 minute prior to obtaining)] 118 H Pulse Rate [Standing (for 1 minute prior to obtaining)] 135 H Respiratory Rate 16 16 Respiratory Effort Blood Pressure 114/70 112/62 Blood Pressure [Lying] 118/62 Blood Pressure [Sitting (for 1 minute prior to obtaining)] 114/71 Blood Pressure [Standing (for 1 minute prior to obtaining)] 100/69 Blood Pressure Mean 84 78 Blood Pressure Mean [Lying] 80 Blood Pressure Mean [Sitting (for 1 minute prior to obtaining)] 85 Blood Pressure Mean [Standing (for 1 minute prior to obtaining)] 79 Pulse Ox 98 100 Oxygen Delivery Method Room Air Room Air 06/09/25 22:00 Temperature Temperature Source Pulse Rate 92 Pulse Rate [Lying] Pulse Rate [Sitting (for 1 minute prior to obtaining)] Pulse Rate [Standing (for 1 minute prior to obtaining)] Respiratory Rate 16 Respiratory Effort Blood Pressure 108/67 Blood Pressure [Lying] Blood Pressure [Sitting (for 1 minute prior to obtaining)] Blood Pressure [Standing (for 1 minute prior to obtaining)] Blood Pressure Mean 80 Blood Pressure Mean [Lying] Blood Pressure Mean [Sitting (for 1 minute prior to obtaining)] Blood Pressure Mean [Standing (for 1 minute prior to obtaining)] Pulse Ox 100 Oxygen Delivery Method Room Air MDM MDM MDM Narrative Medical decision making narrative: Patient is a 25-year-old female who presents to the emergency department with a chief complaint of palpitations, lightheadedness not feeling well. On the differential diagnosis includes but not limited to hyperthyroidism, electrolyte abnormality, dehydration, pulmonary embolism. Once workup is obtained and reviewed she will be reevaluated. Patient is a CBC reviewed which showed a white blood count normal at 9.2, hemoglobin 14.9, platelet count was noted be 308. Patient D-dimer was less than 0.27. Patient sodium is 141, Tessman 3.3, creatinine 0.87. Patient's troponin was less than 6 with a delta troponin of less than 6. Patient's EKG showed sinus tachycardia with rate of 122 bpm NV interval normal 144. Patient TSH normal at 2.94, free T4 and T3 normal at 1.10 and 3.6 respectively. Patient chest x-ray reviewed by myself and by radiology showed no acute cardiopulmonary processes. Patient ambulated well here in the emergency department. Did have some tachycardia with this however quickly resolved with the rest otherwise felt fine during this ambulation.. Will prescribe Holter monitor and will be advised to have her follow-up with her primary care physician outpatient setting and return with worsening symptoms or concerns. All question concerns answered she was discharged home in stable condition Lab Data Labs: Laboratory Results - last 24 hr 06/09/25 06/09/25 19:21 21:17 WBC 9.2 RBC 5.05 Hgb 14.9 Hct 43.8 MCV 86.7 MCH 29.5 MCHC 34.0 RDW Std Deviation 41.7 RDW Coeff of Nan 13.3 Plt Count 308 MPV 9.2 Immature Gran % (Auto) 0.200 Neut % (Auto) 65.1 Lymph % (Auto) 25.7 Dare % (Auto) 6.0 Eos % (Auto) 2.1 Baso % (Auto) 0.9 Absolute Neuts (auto) 6.0 Absolute Lymphs (auto) 2.36 Nucleated RBC % 0 D-Dimer Quant (PE/DVT) < 0.27 L Sodium 141 Potassium 3.3 Chloride 103 Carbon Dioxide 26.3 Anion Gap 12 BUN 6 Creatinine 0.87 Estim Creat Clear Calc 107.33 Est GFR (MDRD) Non-Af 95 BUN/Creatinine Ratio 7.3 L Glucose 105 H Calcium 9.8 Troponin T High Sens < 6 Troponin T Hi Sens 2 Hr < 6 TSH 2.940 Free T4 1.10 Free T3 pg/dL 3.6 Radiography Diagnostic Testing: Clinical Impression(s) from Imaging Studies Chest X-Ray 06/09/25 19:40 IMPRESSION: No acute cardiopulmonary disease. Reading Location: [id number] Discharge Plan Triage Chief Complaint: Palpitations ED Provider: Mil Paz Dx/Rx/DC Orders Clinical Impression: Heart palpitations, Lightheadedness Prescriptions: No Action omeprazole 40 mg capsule,delayed release(DR/EC) 40 mg PO DAILY testosterone cypionate 200 mg/mL Kit 100 mg IM QWEEK venlafaxine 75 mg capsule,extended release 24hr 75 mg PO DAILY clonazepam 0.5 mg tablet 0.5 mg PO QHS venlafaxine 150 mg capsule,extended release 24hr 150 mg PO DAILY dextroamphetamine-amphetamine 15 mg tablet 1 tab PO TID metformin 500 mg tablet extended release 24 hr 500 mg PO BID pregabalin 150 mg capsule 150 mg PO BID Sunosi 150 mg tablet 150 mg PO DAILY Nurtec ODT 75 mg tablet,disintegrating 75 mg PO PRN ondansetron HCl 8 mg tablet 8 mg PO Q8H PRN PRN (Reason: nausea) Primary Care Provider: ANDREW TURPIN Referrals: ANDREW TURPIN [Other] Activity Restrictions/Additional Instructions: Your blood work did not show any acute findings here today your chest x-ray is normal. Continue to hydrate with plenty of water. Return with worsening symptoms or other concerns. Follow-up your doctor in the outpatient setting. Wear Holter monitor as prescribed Print Language: Mauritanian Disposition Disposition: Home, Self Care
[2025-06-09 20:46] LABS: D-Dimer Quantitative (DVT/PE) < 0.27 FEU/ug/m (0.27-0.49)
[2025-06-09 21:00] VITALS: BP 112/62; PULSE 84; RESP 16; O2SAT 100
[2025-06-09 21:09] LABS: Free T3 3.6 pg/mL (2.18-3.98)
[2025-06-09 21:38] LABS: Troponin T High Sens 2 HR < 6 ng/L (<=14)
[2025-06-09 22:00] VITALS: BP 108/67; PULSE 92; RESP 16; O2SAT 100; O2SAT 96
[2025-06-09 22:33] VITALS: BP 108/67; PULSE 92; RESP 16; TEMP 36.2; O2SAT 100
== END 2025-06-09 22:45 | disposition home or self-care (01) ==
PROVIDERS: Emergency Provider Emergency Medicine; Visit Provider Emergency Medicine
DX: R00.2 Palpitations (principal); F31.9 Bipolar disorder, unspecified; F84.0 Autistic disorder; J45.909 Unspecified asthma, uncomplicated; H91.90 Unspecified hearing loss, unspecified ear; F43.10 Post-traumatic stress disorder, unspecified; F17.210 Nicotine dependence, cigarettes, uncomplicated; F41.9 Anxiety disorder, unspecified; R42 Dizziness and giddiness; G43.909 Migraine, unspecified, not intractable, without status migrainosus; F64.0 Transsexualism; Z79.84 Long term (current) use of oral hypoglycemic drugs; Z79.899 Other long term (current) drug therapy; Z90.710 Acquired absence of both cervix and uterus; Z86.16 Personal history of COVID-19
CPT/HCPCS: 71046; 80048; 84439; 84443; 84481; 84484; 85025; 85379; 93005; 96360; 96361; 99284; A4216